=== PATIENT | female | born 1965 | race African-American/Black ===

== ENCOUNTER 2021-10-15 11:33 | Outpatient (REF) | payer MEDICARE, MEDICAID, SELFPAY ==
[2021-10-15 13:45] LABS: MANUAL DIFF FLAG NO
[2021-10-15 13:51] LABS: Basophils Absolute Auto 0.1 X10*3/uL (0.0-0.2); Eosinophils Absolute Auto 0.2 X10*3/uL (0.0-0.4); Eosinophils Percent Auto 2.3 % (0-4); Hematocrit 40.7 % (37.0-47.0); Hemoglobin 13.4 g/dl (12.0-16.0); Imm Gran Abs Auto 0.02 X10*3/uL (0.00-0.03); Imm Gran Pct Auto 0.3 % (0.0-0.4); Lymphocytes Absolute Auto 2.6 X10*3/uL (1.2-4.9); Lymphocytes Percent Auto 36.8 % (20-40); Mean Corpuscular HGB Conc 32.9 g/dl (31.0-35.0); Mean Corpuscular Hemoglobin 31.7 pg (27.0-33.0); Mean Corpuscular Volume 96.2 fL (80.0-98.0); Mean Platelet Volume 10.3 fL (9.4-12.3); Monocytes Absolute Auto 0.8 X10*3/uL (0.1-1.2); Monocytes Percent Auto 11.7 % (2-11); Neutrophils Absolute Auto 3.4 x10*3/uL (2.0-8.3); Neutrophils Percent Auto 47.9 % (45-73); Platelet Count 348 X10*3/uL (160-400); Red Blood Count 4.23 X10*6/uL (4.20-5.50)
[2021-10-15 14:30] LABS: Alanine Aminotransferase 15 U/L (0-31); Alkaline Phosphatase 98 U/L (39-117); Anion Gap 13 (12-20); Aspartate Amino Transferase 19 U/L (5-31); Bilirubin Total 0.5 mg/dL (0.0-1.0); Blood Urea Nitrogen 14 mg/dL (9-16); Calcium 9.7 mg/dL (8.4-10.2); Carbon Dioxide 27 mmol/L (22-29); Chloride 101 mmol/L (96-108); Cholesterol 203 mg/dL; Estimated Glomerular Filt Rate > 60; Glucose Random 86 mg/dL (60-115); Potassium 4.7 mmol/L (3.3-5.1); Sodium 136 mmol/L (135-145); Total Protein 7.9 g/dL (6.5-8.0)
[2021-10-15 14:51] LABS: Vitamin D 25-OH Total 23.7 ng/mL (>30)
== END 2021-10-15 11:34 | disposition home or self-care (01) ==
LOC: HO.HMGCLDS 11:33
PROVIDERS: PCP Internal Medicine; Visit Provider Internal Medicine
DX: M85.80 Other specified disorders of bone density and structure, unspecified site (principal); M54.9 Dorsalgia, unspecified; R06.00 Dyspnea, unspecified
CPT/HCPCS: 36415; 80053; 82306; 82465; 85025

== ENCOUNTER 2022-01-12 10:47 | Outpatient (REF) | payer MEDICARE, MEDICAID, SELFPAY ==
--- NOTE | ~2022-01-12 | XR_ITS ---
EXAMINATION: XR CHEST CLINICAL INFORMATION: Shortness of breath. Chest tightness. COMPARISON: None TECHNIQUE: 2 views of the chest were obtained. FINDINGS: Normal heart size. Pulmonary venous congestion without overt edema. Diffuse prominence of the interstitial markings throughout both lungs, along with bronchial thickening. No discrete consolidation. No pleural effusion or pneumothorax. XR/XR chest 2V IMPRESSION: Diffuse mild bronchial thickening and interstitial prominence throughout both lungs is nonspecific and could represent an atypical pneumonitis / bronchitis
[2022-01-12 12:43] LABS: Thyroid Stimulating Hormone 2.19 uIU/mL (0.32-4.0)
[2022-01-12 13:36] LABS: C Reactive Protein 1.06 mg/dL (< or = 0.50)
== END 2022-01-12 10:48 | disposition home or self-care (01) ==
LOC: HO.XRAY 10:47
PROVIDERS: PCP Internal Medicine; Visit Provider Internal Medicine
DX: R07.9 Chest pain, unspecified (principal); R06.02 Shortness of breath
CPT/HCPCS: 36415; 71046; 82550; 84443; 86140

== ENCOUNTER 2022-02-19 10:31 | Outpatient (REF) | payer MEDICARE, MEDICAID, SELFPAY ==
--- NOTE | 2022-02-19 | PFT_ITS ---
Patient was unable to perform pulmonary function test maneuvers despite multiple attempts. Pulmonary function test was aborted. IMPRESSION: Aborted pulmonary function test. MD TREV Bobby/GABRIELE / [id number]
== END 2022-02-19 10:32 | disposition home or self-care (01) ==
LOC: HO.RESP 10:31
PROVIDERS: PCP Internal Medicine; Visit Provider Internal Medicine
DX: Z13.89 Encounter for screening for other disorder (principal)

== ENCOUNTER 2022-05-26 13:44 | Outpatient (REF) | payer MEDICARE, MEDICAID, OTHER, SELFPAY ==
--- NOTE | ~2022-05-26 | MM_ITS ---
EXAMINATION: MM DIAGNOSTIC DIGITAL BREAST TOMOSYNTHESIS, BILATERAL TARGETED RIGHT BREAST ULTRASOUND CLINICAL INFORMATION: Right breast pain and axillary lump. COMPARISON: Mammography: None. TECHNIQUE: Digital breast tomosynthesis is performed in both the craniocaudal and mediolateral oblique views along with computer-aided detection (CAD). Synthesized 2D images are generated from the tomosynthesis. Targeted right breast ultrasound. FINDINGS: The breasts are heterogeneously dense, which may obscure small masses (ACR BI-RADS breast composition Category c). There are no significant masses, abnormal calcifications, or other abnormalities. Within the right axilla there is a low density well circumscribed lesion with appearance of fat necrosis measuring 1.1 x 0.8 cm in size. There is also question of a small rounded density in the retroareolar region of the right breast. In the region of the patient's pain no abnormal finding was seen. In the retroareolar region of the right breast prominent ducts are present without abnormal cystic or solid mass. In the region of palpable abnormality, in the right axilla, there is a dermal/hypodermal well circumscribed lesion which is homogeneously hyperechoic measuring approximately 9 x 8 x 7 mm in size, which corresponds in size and location to the mammographic finding of fat necrosis. Results are discussed with the patient at time of visit. MM/MM tomosynthesis diagnostic BI IMPRESSION: Palpable abnormality corresponds to fat necrosis. ASSESSMENT: BI-RADS 2: Benign RECOMMENDATION: Routine annual mammography screening. This patient's information was entered into a reminder system with a target due date for their next mammogram.
== END 2022-05-26 13:45 | disposition home or self-care (01) ==
LOC: HO.MAMMO 13:44
PROVIDERS: PCP Internal Medicine; Visit Provider Internal Medicine
DX: N63.13 Unspecified lump in the right breast, lower outer quadrant (principal)
CPT/HCPCS: 76642; 77062; 77066

== ENCOUNTER 2024-04-24 23:14 | Emergency (ER) | payer OTHER, SELFPAY ==
[2024-04-24 23:21] VITALS: BP 125/83; PULSE 102; RESP 18; TEMP 36.4; O2SAT 99; BMI 27.7
[2024-04-25 00:03] LABS: MANUAL DIFF FLAG NO
[2024-04-25 00:06] VITALS: BP 117/76; PULSE 94; RESP 16; TEMP 36.6; O2SAT 98
--- NOTE | 2024-04-25 00:07 | MHC.EDTECH ---
This pct just assumed care of Patient ,vitals taken ,Patient resting waiting see Provider ,Patient aware we need a urine sample.
[2024-04-25 00:20] LABS: Alanine Aminotransferase 23 U/L (0-31); Albumin Level 3.4 g/dL (3.5-5.0); Alkaline Phosphatase 75 U/L (39-117); Anion Gap 16 (12-20); Aspartate Amino Transferase 18 U/L (5-31); Bilirubin Direct 0.2 mg/dL (0.0-0.5); Bilirubin Total 0.4 mg/dL (0.0-1.0); Blood Urea Nitrogen 11 mg/dL (9-16); Calcium 9.7 mg/dL (8.4-10.2); Carbon Dioxide 26 mmol/L (22-29); Chloride 103 mmol/L (96-108); Creatinine Clr Calc Pharmacy 71.1; Estimated Glomerular Filt Rate > 60; Glucose Random 141 mg/dL (60-115); Lipase 48 U/L (8-78); Potassium 4.5 mmol/L (3.3-5.1); Sodium 140 mmol/L (135-145); Total Protein 7.6 g/dL (6.5-8.0)
[2024-04-25 00:41] LABS: Influenza A PCR NEGATIVE (Negative); Influenza B PCR NEGATIVE (Negative); Resp Syncy Virus RNA Qual PCR NEGATIVE (Negative); SARS COV2 PCR INHOUSE NEGATIVE (Negative)
--- NOTE | 2024-04-25 01:02 | ED_ITS ---
HPI - General Adult General Chief complaint: General Medical Stated complaint: body/leg pain Time Seen by Provider: 04/25/24 00:57 Source: patient and family Mode of arrival: ambulatory Limitations: no limitations History of Present Illness ED Provider: Dr. Karyn Kamara HPI narrative: Patient comes to the emergency room complaining of pain all over, ?head to toe?. Patient denies any nausea vomiting or diarrhea. Patient states that for 3 weeks she has been having all of his symptoms. Patient denies chest pain or shortness of breath, no falls, no fever. Patient has been taking Tylenol around the clock. Related Data Previous Rx's ?Medication ?Instructions ?Recorded ibuprofen 600 mg tablet 600 mg PO TID PRN fever or pain 04/25/24 #20 tabs Allergies Allergy/AdvReac Type Severity Reaction Status Date / Time No Known Allergies Allergy Verified 04/24/24 23:26 Review of Systems 2 Review of Systems: Constitutional : No Weight loss, No Fever, No Chills, No Night Sweats, complaining of fatigue and generalized malaise and body aches head to toe ENT/Mouth : No Hearing loss, No Ear Pain, No Nasal Congestion, No Sinus Pain, No Hoarseness, No sore throat, No Rhinorrhea, No Swallowing Difficulty Eyes: No Eye Pain, No Swelling, No Redness, No Foreign Body, No Discharge, No Vision Changes Cardiovascular : No Chest Pain, No SOB, No Dyspnea on Exertion, No Orthopnea, No Edema, No Palpitations Respiratory : No Cough, No Sputum, No Wheezing, No Smoke Exposure, No Dyspnea Gastrointestinal : No Nausea, No Vomiting, No Diarrhea, No Constipation, No abdominal Pain, No Hematochezia, No Melena Genitourinary : no irregular bleeding, No Dysuria, No Urinary Frequency, No Hematuria, No Urinary Incontinence, No Urgency, No Flank Pain, No Urinary Flow Changes, No Hesitancy Musculoskeletal : No joint pain, No Myalgias, No Joint Swelling Skin : No Skin Lesions, No rash Neuro : No Weakness, No Numbness, No Paresthesias, No Loss of Consciousness, No Dizziness, No Headache Psych : Admits to be dealing with anxiety and depression No SI/HI/AH/VH, No Social Issues, Heme/Lymph: No Bruising, No Bleeding,No Lymphadenopathy Endocrine : No Polyuria, No Polydipsia, No Temperature Intolerance PMFSH Social History Social History Smoked in Last 30 Days: No Use of substances other than those prescribed or required for medical reasons: No Advance Directives: No Advance Directives Information Provided: No Patient : No Physical Exam ED Vital Signs: Vital Signs - 24 hr 04/24/24 23:21 04/25/24 00:06 04/25/24 01:21 Temperature 97.5 F 97.8 F 98.3 F Pulse Rate 102 H 94 81 Respiratory Rate 18 16 16 Blood Pressure 125/83 117/76 120/83 Pulse Oximetry 99 98 98 Oxygen Delivery Method Room Air Room Air Room Air BMI result Body Mass Index 27.7 Const Other: Appearance: Alert. Oriented X3. No acute distress. Eyes: Pupils equal, round and reactive to light. ENT: Pharynx normal. Neck: Normal inspection. Neck supple. No lymph nodes noted. No crepitus CVS: Normal heart rate and rhythm. Pulses normal. Normal S1 and S2 Respiratory: No respiratory distress. Breath sounds normal. No Wheezing. No rales Abdomen: Soft and nontender. No rigidity. No distention. Skin: Skin warm and dry. Normal skin color. Normal skin turgor. Extremities: No lower extremity edema. No Lacerations. No Rash Neuro: Oriented X 3. No motor deficit. No sensory deficit. Moving all extremities. No slurred speech. CN 2 through 12 grossly intact Psych: calm, cooperative, flat affect Course Course Course Narrative: All Of patient's labs pending My interpretation of labs: Patient's white blood cell count 11.0, chemistry within normal limits, lipase within normal limits, serology negative -given patient's affect, I believe that some of her physical pain may be secondary to depression. Patient will follow-up with her primary care physician. -a tick panel has been requested, discussed with the patient that the labs will not be available for several days. If positive, our PAs will call her to give her the results and also send in prescriptions. Medical Decision Making Medical Decision Making MDM Narrative: My interpretation of labs: Patient's white blood cell count 11.0, no obvious source of infection. Chemistry within normal limits. Urinalysis negative Discussed with the patient to follow with her primary care physician, it would be of great benefit to be evaluated for depression I discussed with the patient that to her primary care physician she may be referred to rheumatology if the PCP thinks it may be indicated Differential Diagnosis Differential Diagnoses: The differential diagnosis associated with the presentation includes (Tick-borne diseases, depression, electrolyte abnormalities, UTI) Lab Data MDM Lab Attestation statement: I reviewed the patient's lab results. 04/24/24 23:56 04/24/24 23:56 Labs: Lab Results 04/24/24 04/25/24 Range/Units 23:56 02:46 WBC 11.0 H (4.8-10.8) X10*3/uL RBC 4.07 L (4.20-5.50) X10*6/uL Hgb 13.1 (12.0-16.0) g/dl Hct 38.8 (37.0-47.0) % MCV 95.3 (80.0-98.0) fL MCH 32.2 (27.0-33.0) pg MCHC 33.8 (31.0-35.0) g/dl RDW 12.8 (11.0-16.0) % Plt Count 457 H D (160-400) X10*3/uL MPV 8.7 L (9.4-12.3) fL Immature Gran % (Auto) 0.5 H (0.0-0.4) % Neut % (Auto) 64.4 (45-73) % Lymph % (Auto) 27.0 (20-40) % [place] % (Auto) 6.9 (2-11) % Eos % (Auto) 0.8 (0-4) % Baso % (Auto) 0.4 (0-2) % Lymph # (Auto) 3.0 (1.2-4.9) X10*3/uL [place] # (Auto) 0.8 (0.1-1.2) X10*3/uL Eos # (Auto) 0.1 (0.0-0.4) X10*3/uL Baso # (Auto) 0.0 (0.0-0.2) X10*3/uL Abs Immat Gran (auto) 0.05 H (0.00-0.03) X10*3/uL Absolute Neuts (auto) 7.1 (2.0-8.3) x10*3/uL Absolute Nucleated RBC 0.000 (0.0-0.012) X10*3/uL Nucleated RBC % (auto) 0.0 (0.0-0.2) /100WBC Sodium 140 (135-145) mmol/L Potassium 4.5 (3.3-5.1) mmol/L Chloride 103 (96-108) mmol/L Carbon Dioxide 26 (22-29) mmol/L Anion Gap 16 (12-20) BUN 11 (9-16) mg/dL Creatinine 0.73 (0.5-1.4) mg/dL Estim Creat Clear Calc 71.1 Estimated GFR > 60 Random Glucose 141 H (60-115) mg/dL Calcium 9.7 (8.4-10.2) mg/dL Total Bilirubin 0.4 (0.0-1.0) mg/dL Direct Bilirubin 0.2 (0.0-0.5) mg/dL AST 18 (5-31) U/L ALT 23 (0-31) U/L Alkaline Phosphatase 75 (39-117) U/L Total Protein 7.6 (6.5-8.0) g/dL Albumin 3.4 L (3.5-5.0) g/dL Lipase 48 (8-78) U/L Urine Color Yellow Urine Appearance Clear Urine pH 5.5 (5.0-9.0) Ur Specific [place] 1.015 (1.005-1.025) Urine Protein Negative (Neg-Trace) mg/dL Urine Glucose (UA) Negative (Negative) mg/dL Urine Ketones Negative (Negative) mg/dL Urine Blood Negative (Negative) Urine Nitrite Negative (Negative) Ur Leukocyte Esterase Negative (Negative) Influenza Type A (PCR) NEGATIVE (Negative) Influenza Type B (PCR) NEGATIVE (Negative) RSV RNA Qual (PCR) NEGATIVE (Negative) SARS-CoV-2 RNA (RT-PCR) NEGATIVE (Negative) Discharge Plan Discharge Clinical Impression: Weakness, Arthralgia Patient Disposition: Home, Self-Care Instructions: Weakness (ED), Arthralgia (ED) Additional Instructions: Please follow-up with your primary care physician tomorrow. If you have any worsening or new symptoms, please return to the emergency room or call 911 Prescriptions: New ibuprofen 600 mg tablet 600 mg PO TID PRN (Reason: fever or pain) Qty: 20 0RF Print Language: Malian
[2024-04-25 01:10] LABS: Basophils Percent Auto 0.4 % (0-2); Eosinophils Absolute Auto 0.1 X10*3/uL (0.0-0.4); Eosinophils Percent Auto 0.8 % (0-4); Hematocrit 38.8 % (37.0-47.0); Hemoglobin 13.1 g/dl (12.0-16.0); Imm Gran Abs Auto 0.05 X10*3/uL (0.00-0.03); Imm Gran Pct Auto 0.5 % (0.0-0.4); Mean Corpuscular HGB Conc 33.8 g/dl (31.0-35.0); Mean Corpuscular Hemoglobin 32.2 pg (27.0-33.0); Mean Corpuscular Volume 95.3 fL (80.0-98.0); Mean Platelet Volume 8.7 fL (9.4-12.3); Monocytes Absolute Auto 0.8 X10*3/uL (0.1-1.2); Monocytes Percent Auto 6.9 % (2-11); Neutrophils Absolute Auto 7.1 x10*3/uL (2.0-8.3); Neutrophils Percent Auto 64.4 % (45-73); Platelet Count 457 X10*3/uL (160-400); Red Blood Count 4.07 X10*6/uL (4.20-5.50); Red Cell Distribution Width 12.8 % (11.0-16.0)
[2024-04-25 01:21] VITALS: BP 120/83; PULSE 81; RESP 16; TEMP 36.8; O2SAT 98
--- NOTE | 2024-04-25 01:25 | MHC.EDTECH ---
Patient repeated labs drawn and sent to lab ,vitals taken ,Patient resting quietly ,Patient daughter at bedside .
--- NOTE | 2024-04-25 02:47 | MHC.EDTECH ---
Patient urine sample collected and sent to lab .
[2024-04-25 02:52] LABS: Appearance Urine Clear; Color Urine Yellow; Glucose Urine UA Negative (Negative); Leukocyte Esterase Urine Negative (Negative); Nitrite Urine Negative (Negative); PH 5.5 (5.0-9.0); Specific Gravity - Urine 1.015 (1.005-1.025); Urine Blood Negative (Negative); Urine Ketones Negative (Negative); Urine Protein Negative (Neg-Trace)
[2024-04-25 03:14] VITALS: BP 120/83; PULSE 81; RESP 16; TEMP 36.8; O2SAT 98
[2024-04-26 21:33] LABS: Lyme Abs Screen <0.90 index
[2024-04-28 16:48] LABS: A. Phagocytphilium DNA,RT-PCR NOT DETECTED (NOT DETECTED); Babesia Microti DNA, RT-PCR NOT DETECTED (NOT DETECTED); Borrelia Miyamotoi,DNA RT-PCR NOT DETECTED (NOT DETECTED); E.Chaffeensis DNA RT-PCR NOT DETECTED (NOT DETECTED); Lyme(Borrelia ssp)DNA RT-PCR NOT DETECTED (NOT DETECTED)
== END 2024-04-25 03:16 | disposition home or self-care (01) ==
PROVIDERS: Emergency Provider Emergency Medicine; PCP Family Medicine
DX: R53.1 Weakness (principal); M25.50 Pain in unspecified joint; R53.81 Other malaise; R53.83 Other fatigue; Z03.818 Encounter for observation for suspected exposure to other biological agents ruled out
CPT/HCPCS: 0241U; 36415; 80048; 80076; 81003; 83690; 85025; 86617; 86618; 87468; 87469; 87478; 87484; 87798; 99283; 99284

== ENCOUNTER 2024-07-31 10:42 | Inpatient (IN) | payer OTHER, SELFPAY ==
--- NOTE | ~2024-07-31 | CT_ITS ---
CLINICAL HISTORY: difficulty ambulating CT head without contrast Comparison: None Findings: No intra-axial mass, midline shift, hydrocephalus, or acute hemorrhage. No significant atrophy-like change or white matter disease. Mild bilateral ethmoid and maxillary sinus mucosal thickening. The orbits are within normal limits. There is no acute fracture. IMPRESSION: 1. No acute intracranial findings This document has been electronically signed by: Cristiana Kyle MD on 07/31/2024 18:48:31
--- NOTE | ~2024-07-31 | XR_ITS ---
EXAMINATION: Bilateral hip and AP pelvis, bilateral tibia and fibula. CLINICAL INFORMATION: leg pain COMPARISON: None available. TECHNIQUE: 2 views of each tibia and fibula were obtained. AP pelvis and bilateral hips 5 views. FINDINGS: AP pelvis: There is normal symmetry of bilateral hip joints and SI joints. No visible fracture, dislocation or bony erosive changes. The soft tissues are normal Right hip: There is right lateral acetabular enthesophyte. The joint spaces maintained. No visible fracture, bony erosive changes or loose bodies seen. The soft tissues are normal. Left hip: The left hip joint space is normal. No visible fracture, dislocation, loose bodies or bony erosive changes. The soft tissues are normal. Right tibia and fibula: The entire right tibia and fibula is intact. No bony erosive changes. The soft tissues are normal. The ankle mortise and subtalar joints are normal. Left tibia and fibula: The entire left tibia and fibula is intact. There is no visible fracture or cortical abnormality. The ankle mortise and subtalar joints are normal. The soft tissues are normal.. XR/XR hip BI 1V w/wo pel IMPRESSION: Unremarkable bilateral tibia and fibula: Moderate right lateral acetabular enthesophyte. No acute fracture or dislocation in either hip joints. The pelvic bone appears unremarkable. SI joints are normal. Electronically signed by: Jeremy Reynolds MD 07/31/2024 04:48 PM EST
--- NOTE | ~2024-07-31 | US_ITS ---
EXAMINATION: US TRIPLEX LOWER EXTREMITY, BILATERAL CLINICAL INFORMATION: Lower extremity pain and swelling. COMPARISON: None available. TECHNIQUE: Color-flow triplex imaging with spectral analysis and compression Doppler were performed on the bilateral lower extremities. FINDINGS: Respiratory variation, normal compression and augmented flow are noted throughout the bilateral lower extremities. The visualized common femoral vein, superficial femoral vein, profunda femoral vein, popliteal vein and midcalf peroneal and posterior tibial venous segments show no evidence of deep venous thrombosis bilaterally. There is no Thomas's cyst. US/US venous duplex LE BI IMPRESSION: No acute deep venous thrombosis involving the interrogated veins lower extremities. Electronically signed by: Shawn Noyola MD 08/01/2024 08:19 AM EST
--- NOTE | ~2024-07-31 | XR_ITS ---
EXAMINATION: Bilateral hip and AP pelvis, bilateral tibia and fibula. CLINICAL INFORMATION: leg pain COMPARISON: None available. TECHNIQUE: 2 views of each tibia and fibula were obtained. AP pelvis and bilateral hips 5 views. FINDINGS: AP pelvis: There is normal symmetry of bilateral hip joints and SI joints. No visible fracture, dislocation or bony erosive changes. The soft tissues are normal Right hip: There is right lateral acetabular enthesophyte. The joint spaces maintained. No visible fracture, bony erosive changes or loose bodies seen. The soft tissues are normal. Left hip: The left hip joint space is normal. No visible fracture, dislocation, loose bodies or bony erosive changes. The soft tissues are normal. Right tibia and fibula: The entire right tibia and fibula is intact. No bony erosive changes. The soft tissues are normal. The ankle mortise and subtalar joints are normal. Left tibia and fibula: The entire left tibia and fibula is intact. There is no visible fracture or cortical abnormality. The ankle mortise and subtalar joints are normal. The soft tissues are normal.. XR/XR tibia fibula LT 2V IMPRESSION: Unremarkable bilateral tibia and fibula: Moderate right lateral acetabular enthesophyte. No acute fracture or dislocation in either hip joints. The pelvic bone appears unremarkable. SI joints are normal. Electronically signed by: Jeremy Reynolds MD 07/31/2024 04:48 PM [facility]
--- NOTE | ~2024-07-31 | XR_ITS ---
EXAMINATION: Bilateral hip and AP pelvis, bilateral tibia and fibula. CLINICAL INFORMATION: leg pain COMPARISON: None available. TECHNIQUE: 2 views of each tibia and fibula were obtained. AP pelvis and bilateral hips 5 views. FINDINGS: AP pelvis: There is normal symmetry of bilateral hip joints and SI joints. No visible fracture, dislocation or bony erosive changes. The soft tissues are normal Right hip: There is right lateral acetabular enthesophyte. The joint spaces maintained. No visible fracture, bony erosive changes or loose bodies seen. The soft tissues are normal. Left hip: The left hip joint space is normal. No visible fracture, dislocation, loose bodies or bony erosive changes. The soft tissues are normal. Right tibia and fibula: The entire right tibia and fibula is intact. No bony erosive changes. The soft tissues are normal. The ankle mortise and subtalar joints are normal. Left tibia and fibula: The entire left tibia and fibula is intact. There is no visible fracture or cortical abnormality. The ankle mortise and subtalar joints are normal. The soft tissues are normal.. XR/XR tibia fibula RT 2V IMPRESSION: Unremarkable bilateral tibia and fibula: Moderate right lateral acetabular enthesophyte. No acute fracture or dislocation in either hip joints. The pelvic bone appears unremarkable. SI joints are normal. Electronically signed by: Jeremy Reynolds MD 07/31/2024 04:48 PM [facility]
[2024-07-31 10:49] VITALS: BP 108/56; PULSE 71; O2SAT 94
[2024-07-31 11:01] VITALS: BP 115/70; PULSE 112; RESP 18; TEMP 36.2; O2SAT 99; BMI 26.2
--- NOTE | 2024-07-31 11:08 | ED_ITS ---
HPI - General Adult General Chief complaint: General Medical Stated complaint: leg pain Time Seen by Provider: 07/31/24 16:50 Source: patient Mode of arrival: ambulatory Limitations: other (Poor historian) History of Present Illness ED Provider: CHANDNI Ponce HPI narrative: This is a 58-year-old female poor historian unclear medical history presents with weakness throughout entire body she thinks it may be worse in her lower extremities but in her lower extremity she is also experiencing knee pain, hip pain, leg pain. She reports over the past week she has been very weak to the point where she has not been able to get out of bed she feels like her legs are going to give out on her. She will intermittently feel cramping in her lower extremities. He tells me she has been essentially bed-bound for the past week or so in her symptoms seem to be worsening over the past few days. When I asked her what hurts she tells me her whole body hurts and this is normal for her however what is different is the weakness. Patient denies chest pain, shortness of breath, fevers, chills, headache, neck pain, nausea, vomiting, abdominal pain, vision changes, dizziness and weakness. No recent travel. No recent sick contacts. No insect or bug bites. Related Data Home Medications ?Medication ?Instructions ?Recorded ?Confirmed aspirin 81 mg tablet,delayed 81 mg PO DAILY 07/31/24 07/31/24 release atorvastatin 40 mg tablet 40 mg PO DAILY 07/31/24 07/31/24 baclofen 10 mg tablet 10 mg PO BID 07/31/24 07/31/24 buspirone 7.5 mg tablet 7.5 mg PO BID 07/31/24 07/31/24 isosorbide mononitrate 30 mg 30 mg PO DAILY 07/31/24 07/31/24 tablet,extended release 24 hr prazosin 1 mg capsule 1 mg PO BEDTIME 07/31/24 07/31/24 trazodone 100 mg tablet 100 mg PO BEDTIME 07/31/24 07/31/24 Allergies Allergy/AdvReac Type Severity Reaction Status Date / Time No Known Allergies Allergy Verified 07/31/24 11:03 Review of Systems 2 Review of Systems: Yes all other systems are reviewed and are negative PMFSH Past Medical History Attestation statement: The following information was validated with the patient. Source: old records reviewed and nursing notes reviewed Medical History (Updated 07/31/24 @ 21:00 by Alysha Collins PA-C) CAD (coronary artery disease) Idiopathic pulmonary fibrosis Polymyalgia rheumatica Social History Social History Unable to assess alcohol history related to: Unknown Patient Tobacco Use Status: Never used Tobacco Use of substances other than those prescribed or required for medical reasons: Unknown Advance Directives: No Advance Directives Information Provided: Yes Patient : No Physical Exam ED Vital Signs: Vital Signs - 24 hr 07/31/24 11:01 07/31/24 19:40 Temperature 97.2 F 98.3 F Pulse Rate 112 H 98 Respiratory Rate 18 16 Blood Pressure 115/70 125/68 Pulse Oximetry 99 98 Oxygen Delivery Method Room Air Room Air BMI result Body Mass Index 26.2 vss Appearance: Alert.? Oriented X3.? No acute distress.? Head: Normocephalic, atraumatic, no step-offs or deformities Eyes: Pupils equal, round and reactive to light.? ENT: Pharynx normal.? Neck: Normal inspection.? Neck supple.? CVS: Normal heart rate and rhythm.? Pulses normal.? Respiratory: No respiratory distress.? Breath sounds normal.? Abdomen: Soft and nontender.? Skin: Skin warm and dry.? Normal skin color.? Normal skin turgor.? Extremities: No lower extremity edema.? No calf ttp. Global weakness. Seems to be worse to lower extremities. Reflexes present 1+ b/l LE Back: No midline tenderness, no C-spine tenderness, full range of motion, Neuro: Oriented X 3.? No motor deficit.? No sensory deficit. CN 2-12 intact Course Course Course Narrative: RME: 58 yold female presents to the ED for bilateral hip/leg pain since march that has worsened and cause mobility issues. patient at times legs become swollen, but has improved. labs, US, xrays ordered Reevaluation(s) Reevaluation #1: CBC with no acute findings needing intervention. Normocytic anemia noted. Chemistry no acute electrolyte abnormalities. X-ray of hip and pelvis moderate right lateral acetabular enthesophytes. No acute fractures or dislocation either hip joints. The pelvic bone appears unremarkable. SI joints normal. Unremarkable bilateral tibia and fibula. Venous duplex pending & UA pending Time: 17:03 Reevaluation #2: Prelim DVT study negative. CT scan head, ESR, viral test, final DVT study read pending. Sign out to Dr. Albarran Time: 18:50 Reevaluation #3: I assumed care of this patient from my colleague, physician assistant professor of education Lauryn Ponce. The patient's CT scan urinalysis since ESR and SARs panel was pending. The patient is a open speech 58-year-old female with a history of diabetes mellitus, hyperlipidemia, polymyalgia rheumatica, positive MADY and RF, depression, who presents emergency department for evaluation of severe pain in her upper and lower extremities with weakness x1 week and inability to walk over last 2-3 days. Patient states she was had weakness and pain in her upper and lower extremities since March of 2024. She has been evaluated by her PCP at [place] Dr Snethil moses rheumaticmoraima. Patient was started on prednisone with some improvement of her pain however this had to be discontinued secondary to high sugars. Patient did see her PCP 4 days prior and was prescribed baclofen with no relief of her symptoms. On my examination the patient has increased tenderness palpation of her shoulders, hips, elbows and knees with less tenderness palpation over her wrists and fingers here there is no increased warmth over her joints. No joint effusions noted. Patient has weakness in her upper and lower extremities secondary to her pain. The patient has 2+ symmetric reflexes bilaterally. My interpretation of the patient's laboratory evaluation as follows: WBC was normal 9200 with left shift of sudden I neutrophils and 12 lymphocytes. ESR was elevated at 92. Glucose was elevated 167. C-reactive protein is elevated 28.5. CT scan of the head was negative. X-ray of the hip and pelvis were unremarkable. Duplex ultrasound of lower extremities negative for DVT. At this time I do not think that the patient was Guillain-Waterloo syndrome and that her symptoms are more consistent with a severe flare-up of polymyalgia rheumatica the point where she was unable to walk secondary to the severity of her inflammation and pain. Patient was treated with Solu-Medrol 60 mg IV and morphine 4 mg IV. I did discuss the patient's presentation over tiger text with the covering hospitalist, Dr. Marie the patient will be admitted for further treatment Past medical history obtained from the patient's recent PCP visit as he was follows: Polymyalgia rheumatica, myalgia, prediabetes, positive MADY, subclinical hyperthyroidism, elevated rheumatoid factor, left hip pain, elevated ESR, elevated CRP Time: 19:19 Medications Administered Generic Name Dose Route Start Last Admin Trade Name Freq PRN Reason Stop Dose Admin Insulin Human Lispro 0 unit 07/31/24 20:55 07/31/24 21:58 Insulin Lispro 100 Unit/Ml 3 Ml Vial SUBCUT 4 unit QIDACHS YONATAN Administration Protocol Morphine Sulfate 2 mg 07/31/24 20:28 08/01/24 06:25 Morphine Sulfate 2 Mg/Ml Cartridge IVPUSH 2 mg Q3H PRN Administration Pain, Severe (Pain Scale 7-10) Protocol Sodium Chloride 3 ml 08/01/24 00:00 08/01/24 00:25 0.9 % Sodium Chloride Flush 3 Ml Syringe IVFLUSH 3 ml QSHIFT YONATAN Administration Discontinued Medications Generic Name Dose Route Start Last Admin Trade Name Freq PRN Reason Stop Dose Admin Methylprednisolone Sodium Succinate 60 mg 07/31/24 19:42 07/31/24 20:12 Methylprednisolone Sod Succ 125 Mg/2 Ml Vial IVPUSH 07/31/24 19:43 60 mg ONCE ONE Administration Morphine Sulfate 4 mg 07/31/24 19:42 07/31/24 20:12 Morphine Sulfate 4 Mg/Ml Cartridge IVPUSH 07/31/24 19:43 4 mg ONCE STA Administration Protocol Medical Decision Making Medical Decision Making [facility] Narrative: 58-year-old female presents with worsening weakness in lower extremity pain. Weakness >pain. Ongoing for a few months acutely worsening over the past week. She has been bed-bound for the past week. Physical exam global weakness worse to lower extremities. 1+ lower extremity reflexes present. No focal neuro deficits on exam History and physical exam concerning for possible viral illness versus UTI versus depression versus rheumatologic disorder. However Guillain-Waterloo also in the differential. Will rule out metabolic derangements. Intracranial hemorrhage is unlikely however will rule out. Plan labs, imaging, urine. I did add ESR and CRP on this patient Differential Diagnosis Differential Diagnoses: The differential diagnosis associated with the presentation includes (History and physical exam concerning for possible viral illness versus UTI versus depression versus rheumatologic disorder. However Guillain-Waterloo also in the differential. Will rule out metabolic derangements. Intracranial hemorrhage is unlikely however will rule out.) Admission/Observation Consideration of admission/observation: Escalation of care including admission/observation considered (likely ) Consult Healthcare Provider Management of the patient was discussed with: [facility] Admin (Dr. Albarran ) Lab Data MDM Lab Attestation statement: I reviewed the patient's lab results. 08/01/24 04:16 08/01/24 04:16 Labs: Lab Results 07/31/24 07/31/24 Range/Units 11:39 19:12 WBC 9.2 (4.8-10.8) X10*3/uL RBC 3.86 L (4.20-5.50) X10*6/uL Hgb 11.4 L (12.0-16.0) g/dl Hct 35.6 L (37.0-47.0) % MCV 92.2 (80.0-98.0) fL MCH 29.5 (27.0-33.0) pg MCHC 32.0 (31.0-35.0) g/dl RDW 17.0 H (11.0-16.0) % Plt Count 353 (160-400) X10*3/uL MPV 9.1 L (9.4-12.3) fL Immature Gran % (Auto) 0.8 H (0.0-0.4) % Neut % (Auto) 79.7 H (45-73) % Lymph % (Auto) 12.7 L (20-40) % [place] % (Auto) 5.8 (2-11) % Eos % (Auto) 0.6 (0-4) % Baso % (Auto) 0.4 (0-2) % Lymph # (Auto) 1.2 (1.2-4.9) X10*3/uL [place] # (Auto) 0.5 (0.1-1.2) X10*3/uL Eos # (Auto) 0.1 (0.0-0.4) X10*3/uL Baso # (Auto) 0.0 (0.0-0.2) X10*3/uL Abs Immat Gran (auto) 0.07 H (0.00-0.03) X10*3/uL Absolute Neuts (auto) 7.4 (2.0-8.3) x10*3/uL Absolute Nucleated RBC 0.000 (0.0-0.012) X10*3/uL Nucleated RBC % (auto) 0.0 (0.0-0.2) /100WBC ESR 92 H (0-20) MM/HR Sodium 137 (135-145) mmol/L Potassium 4.1 (3.3-5.1) mmol/L Chloride 106 (96-108) mmol/L Carbon Dioxide 25 (22-29) mmol/L Anion Gap 10 L (12-20) BUN 11 (9-16) mg/dL Creatinine 0.63 (0.5-1.4) mg/dL Estim Creat Clear Calc 80.2 Estimated GFR > 60 Random Glucose 160 H (60-115) mg/dL Calcium 8.8 D (8.4-10.2) mg/dL Total Bilirubin 0.3 (0.0-1.0) mg/dL AST 21 (5-31) U/L ALT 13 (0-31) U/L Alkaline Phosphatase 101 (39-117) U/L Total Creatine Kinase 167 H (26-140) U/L C-Reactive Protein 28.51 H (< or = 0.50) mg/dL B-Natriuretic Peptide < 10 (<100) pg/mL Total Protein 6.2 L (6.5-8.0) g/dL Albumin 2.7 L (3.5-5.0) g/dL Influenza Type A (PCR) NEGATIVE (Negative) Influenza Type B (PCR) NEGATIVE (Negative) RSV RNA Qual (PCR) NEGATIVE (Negative) SARS-CoV-2 RNA (RT-PCR) NEGATIVE (Negative) Independent Interpretation I performed an independent interpretation of an: CT Scan (pending ) Radiology Impression Discussion of test interpretation with radiology: I have reviewed the radiologist's reading. Independent Historian Clinical information obtained from an independent historian. History obtained from or confirmed by: EMS Tests considered The following testing was considered but not selected: LP should be considered Critical Care Time Critical Care Time Critical Care Time: Yes Total Critical Care Time: 35 Attestation: I attest to this time spent taking care of the patient, obtaining history, physical, reviewing labs, imaging, treatment of patients condition +/- specialist/hospitalist consult Discharge Plan Discharge Clinical Impression: Myalgia, Leg weakness, bilateral, Fatigue, Polymyalgia rheumatica, Unable to walk Patient Disposition: Admitted As Inpatient
[2024-07-31 11:59] LABS: MANUAL DIFF FLAG NO
[2024-07-31 12:00] LABS: Basophils Percent Auto 0.4 % (0-2); Eosinophils Absolute Auto 0.1 X10*3/uL (0.0-0.4); Eosinophils Percent Auto 0.6 % (0-4); Hematocrit 35.6 % (37.0-47.0); Hemoglobin 11.4 g/dl (12.0-16.0); Imm Gran Abs Auto 0.07 X10*3/uL (0.00-0.03); Imm Gran Pct Auto 0.8 % (0.0-0.4); Lymphocytes Absolute Auto 1.2 X10*3/uL (1.2-4.9); Lymphocytes Percent Auto 12.7 % (20-40); Mean Corpuscular Hemoglobin 29.5 pg (27.0-33.0); Mean Corpuscular Volume 92.2 fL (80.0-98.0); Mean Platelet Volume 9.1 fL (9.4-12.3); Monocytes Absolute Auto 0.5 X10*3/uL (0.1-1.2); Monocytes Percent Auto 5.8 % (2-11); Neutrophils Absolute Auto 7.4 x10*3/uL (2.0-8.3); Neutrophils Percent Auto 79.7 % (45-73); Platelet Count 353 X10*3/uL (160-400); Red Blood Count 3.86 X10*6/uL (4.20-5.50); White Blood Count 9.2 X10*3/uL (4.8-10.8)
[2024-07-31 12:20] LABS: B Type Natriuretic Peptide < 10 pg/mL (<100)
[2024-07-31 12:22] LABS: Alanine Aminotransferase 13 U/L (0-31); Albumin Level 2.7 g/dL (3.5-5.0); Alkaline Phosphatase 101 U/L (39-117); Anion Gap 10 (12-20); Aspartate Amino Transferase 21 U/L (5-31); Bilirubin Total 0.3 mg/dL (0.0-1.0); Blood Urea Nitrogen 11 mg/dL (9-16); Calcium 8.8 mg/dL (8.4-10.2); Carbon Dioxide 25 mmol/L (22-29); Chloride 106 mmol/L (96-108); Creatinine Clr Calc Pharmacy 80.2; Estimated Glomerular Filt Rate > 60; Glucose Random 160 mg/dL (60-115); Potassium 4.1 mmol/L (3.3-5.1); Sodium 137 mmol/L (135-145); Total Protein 6.2 g/dL (6.5-8.0)
[2024-07-31 17:19] LABS: C Reactive Protein 28.51 mg/dL (< or = 0.50)
[2024-07-31 19:01] LABS: Erythrocyte Sedimentation Rate 92 MM/HR (0-20)
--- OUTSIDE RECORDS SUMMARY | 2024-07-31 19:26 | XMS_ITS | Data Portability ---
Author Organization [facility], [place] [facility] Address [address] [place] [id number] Care Team Providers Care Recreation Coordinator Name Role Phone HIM CCA OTHER Assessment Encounter Date Assessment Date Assessment LastModified by Organization Details LastModified Time 12/13/2023 12/13/2023 I provided real -time medical direction via phone for this encounter and was available for additional phone-based assistance as needed. I have reviewed and agree with the Assessment and Plan as documented by the Design Tech. Patient given the opportunity to ask questions. Our service contacted for an assessment of: Chronic pain As per above, patient with hx of chronic pain. No new or worsening red S&S. No new bowel/bladder symptoms. No new gait abnl. No new neurological signs, symptoms or deficits. Per catshovel driver on the scene, VSS, non-toxic. Neuro grossly intact. No CKI and not on blood thinners. Has not taken NSAID today and does not frequently use NSAIDs. Impression: Chronic pain Plan: Toradol 30 mg IM times one. F/u with PCP. Red flags to be discussed as to when to seek a higher level of care. Also noted to have had a recent chest tube - see uploaded pictures. No concern re: site. We discussed the diagnostic uncertainty of home visits and the risk associated with this. In this case, the patient and I felt this to be an acceptable and reasonable amount of risk given the benefit of avoiding an ED visit. We discussed the need to seek care urgently/emerge ntly in the setting of any new or worsening serious symptoms [email or web address] Not available 12/13/2023 13:47:45 12/14/2023 12/14/2023 As noted, we were called to see this patient regarding concerns of spasm and rash. Evaluation in the field was performed by my catshovel driver colleague, as noted above, I provided real-time direction and supervision for this visit. The evaluation revealed 58y F with recent lung bx 8 days ago with appearance of redness yesterday afternoon across right axilla to back, chest and abdomen that is better today. The area encompasses the port and CT sites, but not focal around any particular one and the sites themselves are clean, dry, intact, without drainage. There is no tenderness, focal lesions or warmth to the touch. No fevers. She is otherwise without sxs related to the bx such as cough, dyspnea, or pleuritic pain. She sees surgery and PCP next week. We will judith the area, provide precautions and ask CRC to outreach tomorrow to assess trajectory. Impression: rash Plan: mointor closely, precautions, outreach tomorrow from [facility], consider moving f/u appt sooner as able Disposition: We discussed the diagnostic uncertainty of home visits and the risk associated with this. In this case, the patient and I felt this to be an acceptable and reasonable amount of risk given the benefit of avoiding an ED visit. We discussed the need to seek care urgently/emerge ntly in the setting of any new or worsening serious symptoms, particularly fever, chills, shob, confusion, worsening pain, drainage, malaise, n/v [email or web address] Not available 12/14/2023 19:39:50 Plan of Treatment Reminders Order Date Submit Date Provider Last Modified By Organization Details Last Modified Time Details Appointments None recorded. Lab None recorded. Referral None recorded. Procedures None recorded. Surgeries None recorded. Imaging None recorded. Medication Orders ketorolac 30 mg/mL (1 mL) injection solution 2023 024 [email or web address] Not available 13:45:32 Patient TargetsNo targets recorded. Patient InstructionsNo instructions recorded. Reason for Referral None Reported. Medical Equipment None Reported. Medications Name Sig Start Date Stop Date Status Note LastModified by Organization Details LastModified Time amoxicillin 500 mg capsule TAKE 1 CAPSULE BY MOUTH EVERY 6 HOURS UNTIL FINISHED active Not Available Not Available No t Available buspirone 5 mg tablet TAKE 1 TABLET BY MOUTH TWICE A DAY active Not Available Not Available No t Available atorvastatin 20 mg tablet TAKE 1 TABLET BY MOUTH EVERY DAY active Not Available Not Available No t Available ibuprofen 800 mg tablet TAKE 1 TABLET BY MOUTH EVERY 8 HOURS NEEDED FOR PAIN active Not Available Not Available No t Available prazosin 1 mg capsule TAKE 1 CAPSULE BY MOUTH EVERYDAY AT BEDTIME active Not Available Not Available No t Available senna 8.6 mg tablet TAKE 2 TABLETS BY MOUTH EVERY DAY AT BEDTIME *HOLD FOR DIARRHEA* active Not Available Not Available No t Available trazodone 100 mg tablet TAKE 1 TABLET BY MOUTH EVERYDAY AT BEDTIME active Not Available Not Available No t Available docusate sodium 100 mg capsule TAKE 1 CAPSULE BY MOUTH TWICE A DAY active Not Available Not Available No t Available buspirone 7.5 mg tablet TAKE 1 TABLET BY MOUTH TWICE A DAY active Not Available Not Available No t Available ibuprofen 600 mg tablet TAKE 1 TABLET BY MOUTH EVERY 8 HOURS NEEDED FOR PAIN (TAKE WITH FOOD). active Not Available Not Available Not Available albuterol sulfate HFA 90 mcg/actuatio n aerosol inhaler TAKE 2 PUFFS BY MOUTH EVERY 6 HOURS NEEDED COUGH/WHEEZ ING/SHORTNE SS OF BREATH active Not Available Not Available No t Available oxycodone 5 mg tablet TAKE 1-2 TABLETS BY MOUTH EVERY 4 HOURS NEEDED FOR PAIN active Not Available Not Available No t Available cyclobenzapr ine 5 mg tablet TAKE 1 TABLET BY MOUTH AT BEDTIME NEEDED FOR MUSCLE SPASMS. active Not Available Not Available No t Available GaviLyte-G 236 gram-22.74 gram-6.74 gram-5.86 gram oral solution TAKE 8 OUNCE BY MOUTH DIRECTED FOLLOW INSTRUCTION S PROVIDED TO YOU BY DOCTORS OFFICE active Not Available Not Available No t Available Gavilax 17 gram/dose oral powder TAKE 17 GRAM DISSOLVED IN WATER ONCE A DAY active Not Available Not Available N ot Available Vitals Date Recorded Heart rate Oxygen saturation Oxygen saturation in Arterial blood by Pulse oximetry Body temperature Respiratory rate Systolic blood pressure Diastolic blood pressure Provider Name and Address Organization Details Last Updated DateTime 4 65 /min 99 % 99 % 97.4 [degF] 17 /min 120 mm[Hg] 75 mm[Hg] Not Available [facility] 4 13:40:20 Date Recorded Heart rate Body temperature Respiratory rate Oxygen saturation Oxygen saturation in Arterial blood by Pulse oximetry Systolic blood pressure Diastolic blood pressure Provider Name and Address Organization Details Last Updated DateTime 4 82 /min 98.7 [degF] 16 /min 98 % 98 % 120 mm[Hg] 76 mm[Hg] Not Available [facility] 4 19:15:34 Social History None recorded. Functional Status None recorded. Mental Status None recorded. Family History Nothing Reported. Medical History No medical history recorded. Gynecological HistoryNo gynecological history recorded. Obstetrics History GPAL:G 0 P 0 0 0 0 Past Encounters Encounter ID Performer Location Encounter Start Date Encounter Closed Date Diagnosis/Indication Diagnosis SNOMED-CT Code Diagnosis ICD10 Code Diagnosis Note [id number] Mariella Castro MD [facility] [address] [place] [phone] 12/13/2023 13:40:10 12/13/2023 17:51:43 Chronic pain 34243809 G89.29 [id number] Hafsa Angel MD [facility] [address] [place] [phone] 12/14/2023 19:15:30 12/15/2023 11:44:34 Erythematous rash 862747705 R21 Health Concerns Section Related Observation LastModified by Organization Detai ls LastModified Time None Recorded Concern Status LastModified by Organization Details LastModified Time None Recorded Advance Directives Directive None Recorded Payers Encounter Date Sequence Insurance Name Policy Number Policy Haywood Covered Member ID Haywood Member ID Guarantor Name 12/13/2023 1 [facility] - DOS ON OR AFTER 2022 - DUAL ELIGIBLE - LONG-TERM OPTIONS AND ONE CARE (MEDICARE REPLACEMENT/ADV ANTAGE - HMO) Patricia Alexandre [id number] Patricia Alexandre 12/14/2023 1 [facility] - DOS ON OR AFTER 2022 - DUAL ELIGIBLE - LONG-TERM OPTIONS AND ONE CARE (MEDICARE REPLACEMENT/ADV ANTAGE - HMO) Patricia Alexandre [id number] Particia Alexandre Notes Date Note Type Note Provider Name and Address Organization Details Recorded Time 12/13/2023 text/html CRC Nurse Triage Notes (Trini Roberson): Reason For Request: Pt's son reporting recent discharge for biopsy in the right lung>requesting wound care for potential infection that the son has done his best to upkeep>reporting pain between neck and members right arm Chief Complaints: Wound Care, Pain Allergies: No Known Comments: Members son calling in to place a referral, identified via name, and address. Member had a lung bx 12/05 with a chest tube, all sites closed with surgical glue (3 puncture sites and [address] was placed). Per son the 3 puncture sites are scabbed, closed and dry, but where the chest tube was, is reddened, open and has a small amount of yellow drainage, denies warmth or swelling, no foul odor, no fever/chills. Per son member also has chronic muscle spasms and pain, he usually takes her for an injection but members mobility since the bx has not been great, and he has been transferring/[place] mack her around, and she lives on the 3rd floor. He would also like her pain assessed. ................. ................. ................. ................. ................. ................. ................. ................. ..... Design Tech Note From Elena Chahal: 58y F c/o R arm and neck pain and concerned for possible infection of surgical sites on R side s/p lung biopsy on 12/05 for fibrosis. Pt a&ox3, vss, afebrile; denies chest pain, sob, abd pain, or n/v/d. No redness, warmth, or drainage from incision sites. Pt? s son states chronic muscle spasms in R arm and neck which have been worse over the last x1-2 days, rx pain medication post biopsy and rx muscle relaxer not effective. C consulted, 30mg toradol IM administered. Red flags reviewed. ................. ................. ................. ................. ................. ................. ................. ................. ..... Disposition: Cole Mariella Castro MD [address] [facility],[address], [place], [phone], [facility] 12/13/2023 13:48:03 12/14/2023 text/html CRC Nurse Triage Notes (Danelle Cotton): Reason For Request: Follow up from surgery /muscular spasms Chief Complaints: Pain PMH: Other Allergies: Unknown Comments: Combination Machine Tender verified the member's name//address and phone number. Member is a 58 yr old female, togolese speaking PMH Son calling for member, had sx on 12/05. Member had biopsy in right lung. Member has been having spasm in the right arm , son is unable to move due to spasm. Per son the 3 puncture sites are scabbed, closed and dry, but where the chest tube was, is reddened, open and has a small amount of yellow drainage, denies warmth or swelling, no foul odor, no fever/chills. Education provided on the response time and the member was advised to monitor reported s/s and seek emergency [facility]PI: spasms of right arm are chronic. seen yesterday for this problem, given toradol. and then after the medic left, the careiver noticed some spreading redness around the access points from the bx and chest tube. no fevers, feelin at her basline otherwise. at yesterday's appt, some hellow drainage and redness at chest tube site was noted. has f/u w surgeon next week and the following tuesday sees PCP. no sob.............. ................. ................. ................. ................. ................. ................. ................. ........ Design Tech Note From Caden Bennett: Dispatched to the call address for the follow up. [facility] and pain. Pt was given IM Ketorolac and advised of red flags. Son calls today because he is worried Pt has reddening on her chest/abd as well as more pain in her shoulders/arms. Pt advises that not long after her visit yesterday she noticed reddening in her chest and abd as well as her belly getting a little bigger. Pt denies SoB, CP, dizziness or weakness. Pt was found sitting in chair, CAOx4, airway open and patent, breathing non labored, able to speak in full sentences, -JVD, -HEENT, skin PWD with good turgor, mucous membranes pink and moist, abd soft non distended but tender around injections sites from a recent surgery in LLQ/LRQ. Reddening noted from Pts mid sternum down to URQ of abd and spread around to right lateral side/auxiliary area. Surgical sites did not appear infected at this time. [facility] consulted. Pt and family were advised to monitor the redness for increased darkening and spreading. Other Red flags discussed. Pt has follow up appts with surgeon and PCP next week. ALL times are approx. ................. ................. ................. ................. ................. ................. ................. ................. ..... Disposition: Cole Angel MD [address] [facility],[address], [place], [phone], [id number] 12/14/2023 21:13:02 OBGyn Episode No OBEpisode recorded.
[2024-07-31 19:40] VITALS: BP 125/68; PULSE 98; RESP 16; TEMP 36.8; O2SAT 98
[2024-07-31 19:52] LABS: Influenza A PCR NEGATIVE (Negative); Influenza B PCR NEGATIVE (Negative); Resp Syncy Virus RNA Qual PCR NEGATIVE (Negative); SARS COV2 PCR INHOUSE NEGATIVE (Negative)
[2024-07-31] MEDS: Morphine Sulfate 4 MG/ML CARTRIDGE IVPUSH (20:12)
[2024-07-31] MEDS: methylPREDNISolone Sod Succ 125 MG/2 ML VIAL 60 MG IVPUSH (20:12)
--- NOTE | 2024-07-31 20:36 | PHA.MEDREC ---
Addendum entered by Mary Sales, LTAC, located within [facility] 08/01/24 11:57: spoke to patient's niece, Heather who called back and stated the patient is on OFEV which she will be bringing in for pt. Addendum entered by Frank Hernandez, LTAC, located within [facility] 07/31/24 20:47: med rec reviewed Original Note: Pharmacy Consult ? Medication Reconciliation Pharmacy has completed the medication reconciliation. Spoke with mitzy and she was a poor historian when it came to her medications. She claims she was only taking 2 medications but does not know the names of them and also was confused when I had a list of them. She was able to state that she is no longer taking the Prednisone regimen as of last 07/26 due to her sugars being high. She had a Dr's visit packet dated 07/27/24 that had confirmed on it that the patient is now taking Baclofen 10mg tabs twice daily and the patient confirmed she is taking that medication now. She stated her niece Heather ([phone]) should know and be able to confirm what she is taking for medications right now. I tried calling Heather to see if she knew her Aunts medications but she did not answer. I confirmed the med rec according to claims and the fill history on the medications.
--- NOTE | 2024-07-31 20:54 | P.HPHOSP_ITS ---
History of Present Illness Date of Service: 07/31/24 Attending physician on admission: Radha Guerrero Chief Complaint: weakness, joint pain Patient is a 58-year-old female with a history significant for PMR, idiopathic pulmonary fibrosis, CAD and HLD, who reported to the ED due to increasing weakness and inability to walk with associated upper extremity and lower extremity joint pain. She rates the pain at 10/10 very sensitive to touch and extremely painful with movement or pressure. No erythema or warmth of the joints. no LE edema. She reports the pain is specifically in her shoulders, elbows, hips and knees. The pain is consistent throughout, no specific joint with increased pain. She has been treated for PMR outpatient reports that her prednisone was recently stopped and her weakness has been progressively worsening for the past week, unable to walk for the past 2-3 days. She reports she did recently travel to [place] and did recently have a viral illness at least 1 month ago. No recent immunizations. Mild numbness and tingling in the hands in feet. No respiratory symptoms including shortness of breath or dyspnea. Review of Systems 2 Constitutional: Constitutional: Denies chills, Denies fatigue, Denies fever(s) and Denies headache(s) Eyes: Eyes: Denies change in vision ENT: Denies headache(s), Denies nasal congestion, Denies nasal discharge and Denies sore throat Cardiovascular: Cardiovascular: Denies chest pain, Denies rapid heart rate, Denies leg edema, Denies lightheadedness and Denies dyspnea Respiratory: Respiratory: Denies chest congestion, Denies cough, Denies dyspnea and Denies wheezing Gastrointestinal: Gastrointestinal: Denies constipation, Denies diarrhea, Denies nausea and Denies vomiting Genitourinary: Genitourinary: Denies dysuria and Denies urinary urgency Musculoskeletal: Musculoskeletal: Reports myalgias, Reports arthralgias and Reports joint swelling Integumentary/Breasts: Skin/Breast: Denies rash Neurologic: Denies confusion and Denies headache(s) Psychiatric: Psychiatric: Denies confusion Endocrine: Endocrine: Denies fatigue Hematologic/Lymphatic: Hematologic/Lymphatic: Denies easy bleeding and Denies easy bruising Allergic/Immunologic: Allergic/Immunologic: Denies wheezing [facility] Medical History (Updated 07/31/24 @ 21:00 by Alysha Collins PA-C) CAD (coronary artery disease) Idiopathic pulmonary fibrosis Polymyalgia rheumatica Functional capacity: independent ambulation Social History Unable to assess alcohol history related to: Unknown Use of substances other than those prescribed or required for medical reasons: Unknown Advance Directives: No Advance Directives Information Provided: Yes Patient : No Narrative: No smoking, alcohol or drug use Meds Allergies Allergy/AdvReac Type Severity Reaction Status Date / Time No Known Allergies Allergy Verified 07/31/24 11:03 Active Medications: Current Medications Acetaminophen (Acetaminophen 325 Mg Tablet) 975 mg PO Q6H PRN PRN Reason: Pain, Mild 1-3,fever,headache Calcium Carbonate (Calcium Carbonate 750 Mg Tab.Chew) 750 mg PO Q4H PRN PRN Reason: Heartburn Enoxaparin Sodium (Enoxaparin Sodium 40 Mg/0.4 Ml Syringe) 40 mg SUBCUT Q24H YONATAN Magnesium Hydroxide (Milk Of Magnesia 30 Ml Oral.Susp) 30 ml PO DAILY PRN PRN Reason: Constipation Melatonin (Melatonin 3 Mg Tablet) 6 mg PO BEDTIME PRN PRN Reason: Insomnia Methylprednisolone Sodium Succinate (Methylprednisolone Sod Succ 125 Mg/2 Ml Vial) 60 mg IVPUSH DAILY YONATAN Morphine Sulfate (Morphine Sulfate 2 Mg/Ml Cartridge) 2 mg IVPUSH Q3H PRN; Protocol PRN Reason: Pain, Severe (Pain Scale 7-10) Sodium Chloride (0.9 % Sodium Chloride Flush 3 Ml Syringe) 3 ml IVFLUSH QSHIFT YOANTAN Home Medications ?Medication ?Instructions ?Recorded ?Confirmed ?Last Taken ?Type aspirin 81 mg tablet,delayed 81 mg PO DAILY 07/31/24 07/31/24 Unknown History release atorvastatin 40 mg tablet 40 mg PO DAILY 07/31/24 07/31/24 Unknown History baclofen 10 mg tablet 10 mg PO BID 07/31/24 07/31/24 Unknown History buspirone 7.5 mg tablet 7.5 mg PO BID 07/31/24 07/31/24 Unknown History isosorbide mononitrate 30 mg 30 mg PO DAILY 07/31/24 07/31/24 Unknown History tablet,extended release 24 hr prazosin 1 mg capsule 1 mg PO BEDTIME 07/31/24 07/31/24 Unknown History trazodone 100 mg tablet 100 mg PO BEDTIME 07/31/24 07/31/24 Unknown History Physical Exam 2 Vital Signs and Narrative: Vital Signs: Last Vital Signs Temp 98.3 F 07/31/24 19:40 Pulse 98 07/31/24 19:40 Resp 16 07/31/24 19:40 BP 125/68 07/31/24 19:40 Pulse Ox 98 07/31/24 19:40 O2 Del Method Room Air 07/31/24 19:40 BMI result Body Mass Index 26.2 General: AOx3, no acute distress Resp: Fine crackles bilateral lower lungs CVS: S1, S2, RRR GI: +BS, NT, no distention Skin: Warm, dry Neuro: Cranial nerves II-XII grossly intact bilaterally. Motor grossly intact bilaterally Extremities: No pitting edema. Extreme pain with light touch to the lower and upper extremities. Reflexes unable to be evaluated in the lower extremities due to pain. Upper extremity reflexes 1-2+ bilaterally Psych: Appropriate affect Const: General: No confusion Orientation/consciousness: No confusion Neuro: General: No confusion Results Labs 07/31/24 11:39 07/31/24 11:39 Labs: Laboratory Results - last 24 hr 07/31/24 07/31/24 11:39 19:12 MCV 92.2 MCH 29.5 MCHC 32.0 RDW 17.0 H Plt Count 353 MPV 9.1 L Immature Gran % (Auto) 0.8 H Neut % (Auto) 79.7 H Lymph % (Auto) 12.7 L C[place] % (Auto) 5.8 Eos % (Auto) 0.6 Baso % (Auto) 0.4 Lymph # (Auto) 1.2 [place] # (Auto) 0.5 Eos # (Auto) 0.1 Baso # (Auto) 0.0 Abs Immat Gran (auto) 0.07 H Absolute Neuts (auto) 7.4 Absolute Nucleated RBC 0.000 Nucleated RBC % (auto) 0.0 ESR 92 H Anion Gap 10 L Estim Creat Clear Calc 80.2 Estimated GFR > 60 Random Glucose 160 H Calcium 8.8 D Total Bilirubin 0.3 AST 21 ALT 13 Alkaline Phosphatase 101 Total Creatine Kinase 167 H C-Reactive Protein 28.51 H B-Natriuretic Peptide < 10 Total Protein 6.2 L Albumin 2.7 L Influenza Type A (PCR) NEGATIVE Influenza Type B (PCR) NEGATIVE RSV RNA Qual (PCR) NEGATIVE SARS-CoV-2 RNA (RT-PCR) NEGATIVE Imaging Radiologist's Impressions: Impressions Tibia/Fibula X-Ray 07/31/24 11:07 IMPRESSION: Unremarkable bilateral tibia and fibula: Moderate right lateral acetabular enthesophyte. No acute fracture or dislocation in either hip joints. The pelvic bone appears unremarkable. SI joints are normal. Electronically signed by: Jeremy Reynolds MD 07/31/2024 04:48 PM EST RP Tibia/Fibula X-Ray 07/31/24 11:07 IMPRESSION: Unremarkable bilateral tibia and fibula: Moderate right lateral acetabular enthesophyte. No acute fracture or dislocation in either hip joints. The pelvic bone appears unremarkable. SI joints are normal. Electronically signed by: Jeremy Reynolds MD 07/31/2024 04:48 PM EST RP Hip/Pelvis X-Ray 07/31/24 16:10 IMPRESSION: Unremarkable bilateral tibia and fibula: Moderate right lateral acetabular enthesophyte. No acute fracture or dislocation in either hip joints. The pelvic bone appears unremarkable. SI joints are normal. Electronically signed by: Jeremy Reynolds MD 07/31/2024 04:48 PM EST RP Assessment and Plan (1) Polymyalgia rheumatica: Status: Acute (2) Leg weakness, bilateral: Status: Acute (3) Unable to walk: Status: Acute Plan Patient is a 58-year-old female with a history significant for PMR, idiopathic pulmonary fibrosis, CAD and HLD, who reported to the ED due to increasing weakness and inability to walk with associated upper extremity and lower extremity joint pain. Workup consistent with PMR flare. Guillain-Mathias considered however given medical history, PMR more likely. PMR flare with bilateral lower extremity weakness and inability to walk - WBC normal, vitals stable, no sepsis. - ESR and CRP significantly elevated - x-rays of lower extremities negative - reflexes symmetrical - head CT negative - venous duplex negative for DVT - tick-borne panel pending - UA pending - patient started on Solu-Medrol 60 mg IV in ED, continue - admit for observation due to pain, weakness and inability to walk - add sliding scale insulin due to history of elevated blood sugars with steroids - repeat CRP tomorrow with BMP and CBC CAD/HLD - continue aspirin, statin and isosorbide Idiopathic pulmonary fibrosis - no current medications DNI - discussed in depth with the patient VTE prophylaxis: Lovenox Patient with PMR flare with associated bilateral lower extremity weakness pain and inability to walk, admission for observation and IV steroids. Quality Stroke Does the patient have a stroke diagnosis?: No VTE Prior VTE?: No VTE Risk Level:: Medical - moderate - high VTE Device Contraindication: Treatment Not Indicated VTE Drug Contraindication: N/A - Med Ordered
[2024-07-31 21:54] LABS: Glucose, Whole Blood 210 mg/dL (60-115)
[2024-07-31] MEDS: Insulin Lispro 100 UNIT/ML 3 ML VIAL SUBCUT (21:58)
[2024-07-31 22:04] VITALS: BP 101/70; PULSE 104; RESP 16; TEMP 37.4; O2SAT 95
--- NOTE | 2024-07-31 23:02 | PC.NURSE ---
Report received from Barbara CAMACHO. Moved to Overflow 4. This RN assumes care of patient at this time. Patient was able to slowly scooch herself over from one bed to another independently. Reports that right leg is more painful than left leg. Malay speaking. Call jeronimo within reach.
[2024-07-31 23:28] VITALS: BP 107/67; PULSE 102; RESP 16; TEMP 37.1; O2SAT 97
[2024-08-01] VITALS (8 sets, daily range): BP systolic 108–138; BP diastolic 62–84; PULSE 62–103; RESP 16–20; TEMP 36.1–36.6; O2SAT 96–98; BMI 26.2
--- NOTE | 2024-08-01 00:19 | MHC.EDTECH ---
Patient was assisted unto bedpan ,void urine sample collected and sent to lab .Pt requested to wear DOUG Butterfield aware .
[2024-08-01] MEDS: Morphine Sulfate 2 MG/ML CARTRIDGE IVPUSH ×3 (00:25→09:50)
[2024-08-01] MEDS: 0.9 % Sodium Chloride Flush 3 ML SYRINGE IVFLUSH ×4 (00:25→20:53)
[2024-08-01 00:30] LABS: Appearance Urine Clear; Color Urine Yellow; Glucose Urine UA Negative (Negative); Leukocyte Esterase Urine Negative (Negative); Nitrite Urine Negative (Negative); Specific Gravity - Urine 1.015 (1.005-1.025); Urine Blood Negative (Negative); Urine Ketones Negative (Negative); Urine Protein Negative (Neg-Trace)
--- NOTE | 2024-08-01 00:45 | PC.NURSE ---
Patient medicated with Morphine 2mg IV for 8 out of 10 pain to bilateral legs, but worse on right leg. Patient reported brief episode of nausea without vomiting shortly after administration, which resolved with smelling alcohol wipe and guided deep breathing. Patient thankful, calm/cooperative, watching TV. IV to right AC flushed without difficulty. Patient provided clean catch urine specimen and voided in bedpan. Urine specimen collected and sent to lab for analysis. Awaiting results. Care ongoing by this RN.
[2024-08-01 04:54] LABS: Basophils Percent Auto 0.2 % (0-2); Eosinophils Percent Auto 0.1 % (0-4); Hemoglobin 11.3 g/dl (12.0-16.0); Imm Gran Abs Auto 0.09 X10*3/uL (0.00-0.03); Lymphocytes Percent Auto 10.3 % (20-40); MANUAL DIFF FLAG SCAN; Mean Corpuscular HGB Conc 32.3 g/dl (31.0-35.0); Mean Corpuscular Hemoglobin 29.3 pg (27.0-33.0); Mean Corpuscular Volume 90.7 fL (80.0-98.0); Mean Platelet Volume 8.9 fL (9.4-12.3); Monocytes Absolute Auto 0.1 X10*3/uL (0.1-1.2); Neutrophils Absolute Auto 8.3 x10*3/uL (2.0-8.3); Neutrophils Percent Auto 87.4 % (45-73); Platelet Count 362 X10*3/uL (160-400); Red Blood Count 3.86 X10*6/uL (4.20-5.50); Red Cell Distribution Width 16.8 % (11.0-16.0); SCAN SMEAR FLAG 1; White Blood Count 9.5 X10*3/uL (4.8-10.8)
[2024-08-01 05:09] LABS: Anion Gap 11 (12-20); Blood Urea Nitrogen 12 mg/dL (9-16); Carbon Dioxide 25 mmol/L (22-29); Chloride 102 mmol/L (96-108); Creatinine Clr Calc Pharmacy 76.6; Estimated Glomerular Filt Rate > 60; Glucose Random 226 mg/dL (60-115); Potassium 4.7 mmol/L (3.3-5.1); Sodium 133 mmol/L (135-145)
[2024-08-01 05:15] LABS: SLIDE REVIEW VERIFIED
--- NOTE | 2024-08-01 06:14 | MHC.EDTECH ---
Patient slept most of the night ,0600 rounding done ,vitals taken ,Call jeronimo within Pt reach ,All safety measure in Place .
[2024-08-01 07:18] LABS: Glucose, Whole Blood 194 mg/dL (60-115)
[2024-08-01] MEDS: Insulin Lispro 100 UNIT/ML 3 ML VIAL SUBCUT ×4 (08:37→20:50)
[2024-08-01] MEDS: Enoxaparin Sodium 40 MG/0.4 ML SYRINGE SUBCUT (08:37)
--- NOTE | 2024-08-01 08:51 | HO.PM.IMPN ---
Subjective Subjective Date of Service: 08/01/24 Review of Systems Follow-up poly myalgia rheumatica flare Still with pain to lower extremities mostly right Inability to ambulate Physical Exam Vital Signs: Vital Signs: Last Vital Signs Temp 97.4 F 08/01/24 06:13 Pulse 62 08/01/24 06:13 Resp 18 08/01/24 06:25 BP 119/84 08/01/24 06:13 Pulse Ox 96 08/01/24 06:13 O2 Del Method Room Air 08/01/24 06:13 BMI result Body Mass Index 26.2 Appearing in no acute distress lung sounds are clear to auscultation heart regular rate rhythm, clear S1, S2 positive bowel sounds, abdomen is soft, nontender neuro patient is alert x3, no focal deficits Objective Data Active Medications Acetaminophen (Acetaminophen 325 Mg Tablet) 975 mg PO Q6H PRN PRN Reason: Pain, Mild 1-3,fever,headache Calcium Carbonate (Calcium Carbonate 750 Mg Tab.Chew) 750 mg PO Q4H PRN PRN Reason: Heartburn Enoxaparin Sodium (Enoxaparin Sodium 40 Mg/0.4 Ml Syringe) 40 mg SUBCUT Q24H [facility] Last Admin: 08/01/24 08:37 Dose: 40 mg Documented By: CHARMAINE Glucose (Glucose Gel 15 Gm Gel..Gram.) 15 gm PO Q15M PRN; Protocol PRN Reason: per Hypoglycemia Standing Ord. Dextrose (D10) 250 mls @ 750 mls/hr IV Q15M PRN; Protocol PRN Reason: per Hypoglycemia Standing Ord. Insulin Human Lispro (Insulin Lispro 100 Unit/Ml 3 Ml Vial) 0 unit SUBCUT QIDACHS [facility]; Protocol Last Admin: 08/01/24 08:37 Dose: 2 unit Documented By: CHARMAINE Magnesium Hydroxide (Milk Of Magnesia 30 Ml Oral.Susp) 30 ml PO DAILY PRN PRN Reason: Constipation Melatonin (Melatonin 3 Mg Tablet) 6 mg PO BEDTIME PRN PRN Reason: Insomnia Methylprednisolone Sodium Succinate (Methylprednisolone Sod Succ 125 Mg/2 Ml Vial) 60 mg IVPUSH DAILY [facility] Morphine Sulfate (Morphine Sulfate 2 Mg/Ml Cartridge) 2 mg IVPUSH Q3H PRN; Protocol PRN Reason: Pain, Severe (Pain Scale 7-10) Last Admin: 08/01/24 06:25 Dose: 2 mg Documented By: KYRA Sodium Chloride (0.9 % Sodium Chloride Flush 3 Ml Syringe) [facility] Last Admin: 08/01/24 08:37 Dose: 3 ml Documented By: CHARMAINE Labs 08/01/24 04:16 08/01/24 04:16 Labs: Laboratory Results - last 24 hr 07/31/24 07/31/24 07/31/24 11:39 19:12 21:49 MCV 92.2 MCH 29.5 MCHC 32.0 RDW 17.0 H Plt Count 353 MPV 9.1 L Immature Gran % (Auto) 0.8 H Neut % (Auto) 79.7 H Lymph % (Auto) 12.7 L [place] % (Auto) 5.8 Eos % (Auto) 0.6 Baso % (Auto) 0.4 Lymph # (Auto) 1.2 [place] # (Auto) 0.5 Eos # (Auto) 0.1 Baso # (Auto) 0.0 Abs Immat Gran (auto) 0.07 H Absolute Neuts (auto) 7.4 Absolute Nucleated RBC 0.000 Nucleated RBC % (auto) 0.0 Smear Tech's Comments ESR 92 H Anion Gap 10 L Estim Creat Clear Calc 80.2 Estimated GFR > 60 POC Glucose 210 H Random Glucose 160 H Calcium 8.8 D Total Bilirubin 0.3 AST 21 ALT 13 Alkaline Phosphatase 101 Total Creatine Kinase 167 H C-Reactive Protein 28.51 H B-Natriuretic Peptide < 10 Total Protein 6.2 L Albumin 2.7 L Urine Color Urine Appearance Urine pH Ur Specific [place] Urine Protein Urine Glucose (UA) Urine Ketones Urine Blood Urine Nitrite Ur Leukocyte Esterase Influenza Type A (PCR) NEGATIVE Influenza Type B (PCR) NEGATIVE RSV RNA Qual (PCR) NEGATIVE SARS-CoV-2 RNA (RT-PCR) NEGATIVE 08/01/24 08/01/24 08/01/24 00:18 04:16 07:12 MCV 90.7 MCH 29.3 MCHC 32.3 RDW 16.8 H Plt Count 362 MPV 8.9 L Immature Gran % (Auto) 1.0 H Neut % (Auto) 87.4 H Lymph % (Auto) 10.3 L [place] % (Auto) 1.0 L Eos % (Auto) 0.1 Baso % (Auto) 0.2 Lymph # (Auto) 1.0 L [place] # (Auto) 0.1 Eos # (Auto) 0.0 Baso # (Auto) 0.0 Abs Immat Gran (auto) 0.09 H Absolute Neuts (auto) 8.3 Absolute Nucleated RBC 0.000 Nucleated RBC % (auto) 0.0 Smear Tech's Comments VERIFIED ESR Anion Gap 11 L Estim Creat Clear Calc 76.6 Estimated GFR > 60 POC Glucose 194 H Random Glucose 226 H Calcium 9.0 Total Bilirubin AST ALT Alkaline Phosphatase Total Creatine Kinase C-Reactive Protein 27.80 H B-Natriuretic Peptide Total Protein Albumin Urine Color Yellow Urine Appearance Clear Urine pH 8.0 Ur Specific [place] 1.015 Urine Protein Negative Urine Glucose (UA) Negative Urine Ketones Negative Urine Blood Negative Urine Nitrite Negative Ur Leukocyte Esterase Negative Influenza Type A (PCR) Influenza Type B (PCR) RSV RNA Qual (PCR) SARS-CoV-2 RNA (RT-PCR) Assessment and Plan (1) Polymyalgia rheumatica: Status: Acute Plan Patient is a 58-year-old female with a history significant for PMR, idiopathic pulmonary fibrosis, CAD and HLD, who reported to the ED due to increasing weakness and inability to walk with associated upper extremity and lower extremity joint pain. Workup consistent with PMR flare. Guillain-[place] considered however given medical history, PMR more likely. PMR flare with bilateral lower extremity weakness and inability to walk no sepsis. ESR and CRP significantly elevated x-rays of lower extremities negative reflexes symmetrical head CT negative venous duplex negative for DVT tick-borne panel pending UA neg Solu-Medrol 60 mg IV Elevated blood glucose from steroids ss and POC during hospital stay unless A1C is elevated CAD/HLD continue aspirin, isosorbideand hold statin Idiopathic pulmonary fibrosis no current medications Mental health continue buspirone, prazosin and trazodone DNI VTE prophylaxis: Lovenox Patient with PMR flare with associated bilateral lower extremity weakness pain and inability to walk, admission for observation and IV steroids. Quality Stroke Does the patient have a stroke diagnosis?: No VTE Prior VTE?: No VTE Risk Level:: Medical - moderate - high VTE Device Contraindication: Treatment Not Indicated VTE Drug Contraindication: N/A - Med Ordered
[2024-08-01] MEDS: methylPREDNISolone Sod Succ 125 MG/2 ML VIAL 60 MG IVPUSH (09:06)
[2024-08-01] MEDS: Aspirin Enteric Coated 81 MG TABLET.DR PO (09:06)
[2024-08-01] MEDS: Baclofen 10 MG TABLET PO ×2 (09:06→20:49)
--- NOTE | 2024-08-01 09:14 | MHC.EDTECH ---
Pt ate 100% of her breakfast. 240cc of fluids
[2024-08-01 09:43] LABS: Estimated Average Glucose 137 mg/dL; Hemoglobin A1C 135.2872 umol/L; Hemoglobin A1c % 6.4 % (<6.0); Total Hemoglobin (HGBA1C) 2941.6846 umol/L
[2024-08-01] MEDS: Isosorbide Mononitrate 30 MG TAB.ER.24H PO (09:49)
[2024-08-01] MEDS: busPIRone HCl 5 MG TABLET 7.5 MG PO ×2 (09:49→20:49)
[2024-08-01 11:03] LABS: Glucose, Whole Blood 205 mg/dL (60-115)
--- NOTE | 2024-08-01 13:30 | MHC.CM.PN ---
CM met with Patient and her Niece/HCP/Caregiver/Heather at bedside, with the assist of a [facility] Furnace Reliner and addressed PICKETT with her (original was given to Patient and a copy has been placed on the chart). Patient lives alone in an apartment but she plans to stay at her Niece's home at time of dc. 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 Home/self care is the goal and CM has initiated and will follow for dc planning. PCP is Dr. Lex Rich @ [place]. Niece will transport to home.
[2024-08-01 16:16] LABS: Glucose, Whole Blood 222 mg/dL (60-115)
[2024-08-01 20:28] LABS: Glucose, Whole Blood 305 mg/dL (60-115)
[2024-08-01] MEDS: traZODone HCL 100 MG TABLET PO (20:49)
[2024-08-01] MEDS: Prazosin HCL 1 MG CAPSULE PO (20:49)
[2024-08-01] MEDS: Albuterol/Iprat 2.5/0.5MG 3 ML AMPUL.NEB INHALE (22:11)
[2024-08-02 03:24] VITALS: BP 99/63; PULSE 69; RESP 18; TEMP 36.4; O2SAT 97
[2024-08-02 07:36] VITALS: BP 116/61; PULSE 67; RESP 16; TEMP 36.1; O2SAT 98
[2024-08-02 07:47] LABS: Glucose, Whole Blood 183 mg/dL (60-115)
[2024-08-02] MEDS: busPIRone HCl 5 MG TABLET 7.5 MG PO ×2 (08:16→21:57)
[2024-08-02] MEDS: Insulin Lispro 100 UNIT/ML 3 ML VIAL SUBCUT ×4 (08:18→21:59)
[2024-08-02] MEDS: 0.9 % Sodium Chloride Flush 3 ML SYRINGE IVFLUSH ×3 (08:18→22:00)
[2024-08-02] MEDS: Aspirin Enteric Coated 81 MG TABLET.DR PO (08:19)
[2024-08-02] MEDS: Enoxaparin Sodium 40 MG/0.4 ML SYRINGE SUBCUT (08:19)
[2024-08-02] MEDS: Isosorbide Mononitrate 30 MG TAB.ER.24H PO (08:19)
[2024-08-02] MEDS: Baclofen 10 MG TABLET PO ×2 (08:19→21:57)
[2024-08-02] MEDS: methylPREDNISolone Sod Succ 125 MG/2 ML VIAL 60 MG IVPUSH (08:20)
[2024-08-02 11:25] VITALS: BP 100/58; PULSE 69; RESP 16; TEMP 36.2; O2SAT 98
[2024-08-02 11:45] LABS: Glucose, Whole Blood 319 mg/dL (60-115)
--- NOTE | 2024-08-02 14:30 | P.PNIM_ITS ---
Subjective Subjective Date of Service: 08/02/24 Interval History: Seen and examined this morning History obtained with the assistance of a welder railcar mechanic Patient reports some improvement in lower extremity weakness and pain Review of Systems Review of Systems: Yes all other systems are reviewed and are negative Constitutional Constitutional: Denies chills and Denies fever(s) Cardiovascular Cardiovascular: Denies chest pain Gastrointestinal Gastrointestinal: Denies abdominal pain, Denies nausea and Denies vomiting Physical Exam 2 Vital Signs: Vital Signs: Last Vital Signs Temp 97.1 F 08/02/24 11:25 Pulse 69 08/02/24 11:25 Resp 16 08/02/24 11:25 BP 100/58 L 08/02/24 11:25 Pulse Ox 98 08/02/24 11:25 O2 Del Method Room Air 08/02/24 11:25 BMI result Body Mass Index 26.2 Const: General: cooperative, comfortable, alert and awake Nutritional Appearance: average body habitus Orientation/consciousness: patient oriented x3 Resp: Effort & Inspection: normal respiratory effort, able to speak in complete sentences, no respiratory distress and no use of accessory muscles A uscultation: clear to auscultation bilaterally Cardio: Rate: regular rate GI: Inspection: No distended Palpation (GI): Soft to palpation Neuro: General: patient oriented x3, moves all extremities and CN's II-XI intact bilaterally Objective Data Active Medications Acetaminophen (Acetaminophen 325 Mg Tablet) 975 mg PO Q6H PRN PRN Reason: Pain, Mild 1-3,fever,headache Albuterol/Ipratropium (Albuterol/Iprat 2.5/0.5mg 3 Ml Ampul.Neb) 3 ml INHALE Q4H PRN PRN Reason: Wheezing Last Admin: 08/01/24 22:11 Dose: 3 ml Documented By: DEON Aspirin (Aspirin Enteric Coated 81 Mg Tablet.) 81 mg PO DAILY [facility] Last Admin: 08/02/24 08:19 Dose: 81 mg Documented By: STEPH Baclofen (Baclofen 10 Mg Tablet) 10 mg PO BID [facility] Last Admin: 08/02/24 08:19 Dose: 10 mg Documented By: STEPH Buspirone HCl (Buspirone Hcl 5 Mg Tablet) 7.5 mg PO BID [facility] Last Admin: 08/02/24 08:16 Dose: 7.5 mg Documented By: STEPH Calcium Carbonate (Calcium Carbonate 750 Mg Tab.Chew) 750 mg PO Q4H PRN PRN Reason: Heartburn Enoxaparin Sodium (Enoxaparin Sodium 40 Mg/0.4 Ml Syringe) 40 mg SUBCUT Q24H [facility] Last Admin: 08/02/24 08:19 Dose: 40 mg Documented By: STEPH Glucose (Glucose Gel 15 Gm Gel..Gram.) 15 gm PO Q15M PRN; Protocol PRN Reason: per Hypoglycemia Standing Ord. Dextrose (D10) 250 mls @ 750 mls/hr IV Q15M PRN; Protocol PRN Reason: per Hypoglycemia Standing Ord. Insulin Human Lispro (Insulin Lispro 100 Unit/Ml 3 Ml Vial) 0 unit SUBCUT QIDACHS [facility]; Protocol Last Admin: 08/02/24 12:05 Dose: 8 unit Documented By: STEPH Isosorbide Mononitrate (Isosorbide Mononitrate 30 Mg Tab.Er.24h) 30 mg PO DAILY [facility]; Protocol Last Admin: 08/02/24 08:19 Dose: 30 mg Documented By: STEPH Magnesium Hydroxide (Milk Of Magnesia 30 Ml Oral.Susp) 30 ml PO DAILY PRN PRN Reason: Constipation Melatonin (Melatonin 3 Mg Tablet) 6 mg PO BEDTIME PRN PRN Reason: Insomnia Methylprednisolone Sodium Succinate (Methylprednisolone Sod Succ 125 Mg/2 Ml Vial) 60 mg IVPUSH DAILY [facility] Last Admin: 08/02/24 08:20 Dose: 60 mg Documented By: STEPH Morphine Sulfate (Morphine Sulfate 2 Mg/Ml Cartridge) 2 mg IVPUSH Q3H PRN; Protocol PRN Reason: Pain, Severe (Pain Scale 7-10) Last Admin: 08/01/24 09:50 Dose: 2 mg Documented By: CHARMAINE Prazosin HCl (Prazosin Hcl 1 Mg Capsule) 1 mg PO BEDTIME [facility]; Protocol Last Admin: 08/01/24 20:49 Dose: 1 mg Documented By: SANDY Sodium Chloride (0.9 % Sodium Chloride Flush 3 Ml Syringe) 3 ml IVFLUSH QSHIFT [facility] Last Admin: 08/02/24 08:18 Dose: 3 ml Documented By: STEPH Trazodone HCl (Trazodone Hcl 100 Mg Tablet) 100 mg PO BEDTIME [facility] Last Admin: 08/01/24 20:49 Dose: 100 mg Documented By: SANDY Labs 08/01/24 04:16 08/01/24 04:16 Labs: Laboratory Results - last 24 hr 08/01/24 08/01/24 08/02/24 16:13 20:16 07:41 POC Glucose 222 H 305 H 183 H 08/02/24 11:29 POC Glucose 319 H Assessment and Plan (1) Polymyalgia rheumatica: Status: Acute Plan Patient is a 58-year-old female with a history significant for PMR, idiopathic pulmonary fibrosis, CAD and HLD, who reported to the ED due to increasing weakness and inability to walk with associated upper extremity and lower extremity joint pain. Workup consistent with PMR flare. Guillain-[place] considered however given medical history, PMR more likely. PMR flare with bilateral lower extremity weakness no sepsis. ESR and CRP significantly elevated x-rays of lower extremities negative, CT head negative reflexes symmetrical venous duplex negative for DVT tick-borne panel pending Solu-Medrol 60 mg IV Elevated blood glucose from steroids ss and POC during hospital stay unless A1C is elevated CAD/HLD continue aspirin, isosorbide hold statin Idiopathic pulmonary fibrosis no current medications. no respiratory symptoms or hypoxia Mental health continue buspirone, prazosin and trazodone DNI VTE prophylaxis: Lovenox Patient with PMR flare with associated bilateral lower extremity weakness pain and inability to walk, admission for observation and IV steroids. Quality Stroke Does the patient have a stroke diagnosis?: No VTE Prior VTE?: No VTE Risk Level:: Medical - moderate - high VTE Device Contraindication: Treatment Not Indicated VTE Drug Contraindication: N/A - Med Ordered
[2024-08-02 15:47] VITALS: BP 117/66; PULSE 60; RESP 18; TEMP 36; O2SAT 98
--- NOTE | 2024-08-02 17:57 | PC.NURSE ---
POC 171, not transferring from POC machine to computer. POC confirmed by Frank Cordova RN. Wendy TARIQ made aware. 2 units of lispro given per the sliding scale.
[2024-08-02 19:41] VITALS: BP 103/63; PULSE 58; RESP 18; TEMP 36.4; O2SAT 98
[2024-08-02 20:06] LABS: Glucose, Whole Blood 278 mg/dL (60-115)
[2024-08-02 21:55] VITALS: BP 122/74; PULSE 71
[2024-08-02] MEDS: Prazosin HCL 1 MG CAPSULE PO (21:56)
[2024-08-02] MEDS: traZODone HCL 100 MG TABLET PO (21:57)
[2024-08-03] VITALS (9 sets, daily range): BP systolic 102–121; BP diastolic 60–69; PULSE 58–77; RESP 16–18; TEMP 36–36.9; O2SAT 97–99
[2024-08-03] MEDS: Acetaminophen 325 MG TABLET 975 MG PO ×2 (00:32→21:56)
--- NOTE | 2024-08-03 00:35 | PC.NURSE ---
Pt requested PRN Tylenol for 6/10 pain to R leg.
[2024-08-03 07:45] LABS: Glucose, Whole Blood 99 mg/dL (60-115)
[2024-08-03 09:04] LABS: Glucose, Whole Blood 171 mg/dL (60-115)
[2024-08-03] MEDS: Baclofen 10 MG TABLET PO ×2 (09:05→21:58)
[2024-08-03] MEDS: busPIRone HCl 5 MG TABLET 7.5 MG PO ×2 (09:05→21:57)
[2024-08-03] MEDS: methylPREDNISolone Sod Succ 125 MG/2 ML VIAL 60 MG IVPUSH (09:05)
[2024-08-03] MEDS: Enoxaparin Sodium 40 MG/0.4 ML SYRINGE SUBCUT (09:06)
[2024-08-03] MEDS: Isosorbide Mononitrate 30 MG TAB.ER.24H PO (09:06)
[2024-08-03] MEDS: Aspirin Enteric Coated 81 MG TABLET.DR PO (09:06)
[2024-08-03] MEDS: 0.9 % Sodium Chloride Flush 3 ML SYRINGE IVFLUSH ×3 (09:11→21:59)
[2024-08-03 11:36] LABS: Glucose, Whole Blood 150 mg/dL (60-115)
[2024-08-03 16:20] LABS: Glucose, Whole Blood 267 mg/dL (60-115)
[2024-08-03] MEDS: Insulin Lispro 100 UNIT/ML 3 ML VIAL SUBCUT (16:57)
--- NOTE | 2024-08-03 17:34 | HO.PM.IMPN ---
Subjective Subjective Date of Service: 08/03/24 Interval History: Seen and examined this morning Follow-up for polymyalgia rheumatica flare Slowly improving Review of Systems Review of Systems: Yes all other systems are reviewed and are negative Constitutional Constitutional: Denies chills and Denies fever(s) ENT Ears, Nose, Mouth, and Throat: Denies dizziness Cardiovascular Cardiovascular: Denies chest pain and Denies palpitations Neurologic Neurologic: Denies dizziness Endocrine Endocrine: Denies palpitations Physical Exam Vital Signs: Vital Signs: Last Vital Signs Temp 97.5 F 08/03/24 15:34 Pulse 68 08/03/24 15:34 Resp 18 08/03/24 15:34 BP 108/65 08/03/24 15:34 Pulse Ox 98 08/03/24 15:34 O2 Del Method Room Air 08/03/24 15:34 BMI result Body Mass Index 26.2 Const: General: cooperative, comfortable, alert and awake Nutritional Appearance: average body habitus Orientation/consciousness: patient oriented x3 Resp: Effort & Inspection: normal respiratory effort, able to speak in complete sentences, no respiratory distress and no use of accessory muscles Auscultation: clear to auscultation bilaterally Cardio: Rate: regular rate GI: Inspection: No distended Palpation (GI): Soft to palpation Neuro: General: patient oriented x3, moves all extremities and CN's II-XI intact bilaterally Objective Data Active Medications Acetaminophen (Acetaminophen 325 Mg Tablet) 975 mg PO Q6H PRN PRN Reason: Pain, Mild 1-3,fever,headache Last Admin: 08/03/24 00:32 Dose: 975 mg Documented By: REI Comments: per pt request Albuterol/Ipratropium (Albuterol/Iprat 2.5/0.5mg 3 Ml Ampul.Neb) 3 ml INHALE Q4H PRN PRN Reason: Wheezing Last Admin: 08/01/24 22:11 Dose: 3 ml Documented By: DEON Aspirin (Aspirin Enteric Coated 81 Mg Tablet.) 81 mg PO DAILY [facility] Last Admin: 08/03/24 09:06 Dose: 81 mg Documented By: STEPH Baclofen (Baclofen 10 Mg Tablet) 10 mg PO BID [facility] Last Admin: 08/03/24 09:05 Dose: 10 mg Documented By: STEPH Buspirone HCl (Buspirone Hcl 5 Mg Tablet) 7.5 mg PO BID [facility] Last Admin: 08/03/24 09:05 Dose: 7.5 mg Documented By: STEPH Calcium Carbonate (Calcium Carbonate 750 Mg Tab.Chew) 750 mg PO Q4H PRN PRN Reason: Heartburn Enoxaparin Sodium (Enoxaparin Sodium 40 Mg/0.4 Ml Syringe) 40 mg SUBCUT Q24H [facility] Last Admin: 08/03/24 09:06 Dose: 40 mg Documented By: STEPH Glucose (Glucose Gel 15 Gm Gel..Gram.) 15 gm PO Q15M PRN; Protocol PRN Reason: per Hypoglycemia Standing Ord. Dextrose (D10) 250 mls @ 750 mls/hr IV Q15M PRN; Protocol PRN Reason: per Hypoglycemia Standing Ord. Insulin Human Lispro (Insulin Lispro 100 Unit/Ml 3 Ml Vial) 0 unit SUBCUT QIDACHS [facility]; Protocol Last Admin: 08/03/24 16:57 Dose: 6 unit Documented By: STEPH Isosorbide Mononitrate (Isosorbide Mononitrate 30 Mg Tab.Er.24h) 30 mg PO DAILY [facility]; Protocol Last Admin: 08/03/24 09:06 Dose: 30 mg Documented By: STEPH Magnesium Hydroxide (Milk Of Magnesia 30 Ml Oral.Susp) 30 ml PO DAILY PRN PRN Reason: Constipation Melatonin (Melatonin 3 Mg Tablet) 6 mg PO BEDTIME PRN PRN Reason: Insomnia Methylprednisolone Sodium Succinate (Methylprednisolone Sod Succ 125 Mg/2 Ml Vial) 60 mg IVPUSH DAILY [facility] Last Admin: 08/03/24 09:05 Dose: 60 mg Documented By: STEPH Oxycodone HCl (Oxycodone Hcl Immed Release 5 Mg Tablet) 5 mg PO Q6H PRN PRN Reason: Pain, Moderate(Pain Scale 4-6) Prazosin HCl (Prazosin Hcl 1 Mg Capsule) 1 mg PO BEDTIME [facility]; Protocol Last Admin: 08/02/24 21:56 Dose: 1 mg Documented By: REI Sodium Chloride (0.9 % Sodium Chloride Flush 3 Ml Syringe) 3 ml IVFLUSH QSHIFT [facility] Last Admin: 08/03/24 16:58 Dose: 3 ml Documented By: STEPH Trazodone HCl (Trazodone Hcl 100 Mg Tablet) 100 mg PO BEDTIME [facility] Last Admin: 08/02/24 21:57 Dose: 100 mg Documented By: REI Labs 08/01/24 04:16 08/01/24 04:16 Labs: Laboratory Results - last 24 hr 08/02/24 08/02/24 08/03/24 16:16 20:02 07:30 POC Glucose 171 H 278 H 99 08/03/24 08/03/24 11:18 16:11 POC Glucose 150 H 267 H Assessment and Plan (1) Polymyalgia rheumatica: Status: Acute Plan Patient is a 58-year-old female with a history significant for PMR, idiopathic pulmonary fibrosis, CAD and HLD, who reported to the ED due to increasing weakness and inability to walk with associated upper extremity and lower extremity joint pain. Workup consistent with PMR flare. Guillain-[place] considered however given medical history, PMR more likely. PMR flare with bilateral lower extremity weakness no sepsis. ESR and CRP significantly elevated x-rays of lower extremities negative, CT head negative reflexes symmetrical venous duplex negative for DVT tick-borne panel pending Solu-Medrol 60 mg IV recommend outpatient follow up with rheumatology seen by PT rec STR Elevated blood glucose from steroids ss and POC during hospital stay CAD/HLD continue aspirin, isosorbide hold statin Idiopathic pulmonary fibrosis no current medications. no respiratory symptoms or hypoxia Mental health continue buspirone, prazosin and trazodone DNI VTE prophylaxis: Lovenox Patient with PMR flare with associated bilateral lower extremity weakness pain and inability to walk, admission for observation and IV steroids. Quality Stroke Does the patient have a stroke diagnosis?: No VTE Prior VTE?: No VTE Risk Level:: Medical - moderate - high VTE Device Contraindication: Treatment Not Indicated VTE Drug Contraindication: N/A - Med Ordered
[2024-08-03 17:49] LABS: A. Phagocytphilium DNA,RT-PCR NOT DETECTED (NOT DETECTED); Babesia Microti DNA, RT-PCR NOT DETECTED (NOT DETECTED); Borrelia Miyamotoi,DNA RT-PCR NOT DETECTED (NOT DETECTED); E.Chaffeensis DNA RT-PCR NOT DETECTED (NOT DETECTED); Lyme(Borrelia ssp)DNA RT-PCR NOT DETECTED (NOT DETECTED)
[2024-08-03 20:28] LABS: Glucose, Whole Blood 142 mg/dL (60-115)
[2024-08-03] MEDS: Prazosin HCL 1 MG CAPSULE PO (21:58)
[2024-08-03] MEDS: traZODone HCL 100 MG TABLET PO (21:58)
[2024-08-04 04:00] VITALS: BP 113/72; PULSE 62; RESP 18; TEMP 36.6; O2SAT 99
[2024-08-04 07:18] VITALS: BP 121/73; PULSE 56; RESP 16; TEMP 36; O2SAT 99
[2024-08-04 07:24] LABS: Glucose, Whole Blood 86 mg/dL (60-115)
[2024-08-04] MEDS: Baclofen 10 MG TABLET PO ×2 (08:56→19:44)
[2024-08-04] MEDS: busPIRone HCl 5 MG TABLET 7.5 MG PO ×2 (08:56→19:44)
[2024-08-04] MEDS: Isosorbide Mononitrate 30 MG TAB.ER.24H PO (08:56)
[2024-08-04] MEDS: Aspirin Enteric Coated 81 MG TABLET.DR PO (08:56)
[2024-08-04] MEDS: Enoxaparin Sodium 40 MG/0.4 ML SYRINGE SUBCUT (08:58)
[2024-08-04] MEDS: Acetaminophen 325 MG TABLET 975 MG PO ×2 (08:58→15:13)
[2024-08-04] MEDS: methylPREDNISolone Sod Succ 125 MG/2 ML VIAL 60 MG IVPUSH (08:58)
[2024-08-04] MEDS: 0.9 % Sodium Chloride Flush 3 ML SYRINGE IVFLUSH ×3 (08:59→19:45)
--- NOTE | 2024-08-04 10:00 | PC.NURSE ---
PCT reported to this RN that patient refused morning care.
[2024-08-04 11:12] LABS: Glucose, Whole Blood 150 mg/dL (60-115)
[2024-08-04 11:16] VITALS: BP 102/55; PULSE 75; RESP 16; TEMP 36.9; O2SAT 98
[2024-08-04 15:20] VITALS: BP 100/62; PULSE 85; RESP 18; TEMP 36.4; O2SAT 97
[2024-08-04 15:29] LABS: Glucose, Whole Blood 295 mg/dL (60-115)
--- NOTE | 2024-08-04 16:04 | HO.PM.IMPN ---
Subjective Subjective Date of Service: 08/04/24 Interval History: Seen and examined this morning Follow-up for flare of polymyalgia rheumatica Patient continues to improve with strength and pain Review of Systems Review of Systems: Yes all other systems are reviewed and are negative Constitutional Constitutional: Denies chills and Denies fever(s) Physical Exam Vital Signs: Vital Signs: Last Vital Signs Temp 97.6 F 08/04/24 15:20 Pulse 85 08/04/24 15:20 Resp 18 08/04/24 15:20 BP 100/62 08/04/24 15:20 Pulse Ox 97 08/04/24 15:20 O2 Del Method Room Air 08/04/24 15:20 BMI result Body Mass Index 26.2 Const: General: cooperative, comfortable, alert and awake Nutritional Appearance: average body habitus Orientation/consciousness: patient oriented x3 Resp: Effort & Inspection: normal respiratory effort, able to speak in complete sentences, no respiratory distress and no use of accessory muscles Auscultation: clear to auscultation bilaterally Cardio: Rate: regular rate GI: Inspection: No distended Palpation (GI): Soft to palpation Neuro: General: patient oriented x3, moves all extremities and CN's II-XI intact bilaterally Objective Data Active Medications Acetaminophen (Acetaminophen 325 Mg Tablet) 975 mg PO Q6H PRN PRN Reason: Pain, Mild 1-3,fever,headache Last Admin: 08/04/24 15:13 Dose: 975 mg Documented By: RIYA Albuterol/Ipratropium (Albuterol/Iprat 2.5/0.5mg 3 Ml Ampul.Neb) 3 ml INHALE Q4H PRN PRN Reason: Wheezing Last Admin: 08/01/24 22:11 Dose: 3 ml Documented By: DEON Aspirin (Aspirin Enteric Coated 81 Mg Tablet.) 81 mg PO DAILY [facility] Last Admin: 08/04/24 08:56 Dose: 81 mg Documented By: RIYA Baclofen (Baclofen 10 Mg Tablet) 10 mg PO BID [facility] Last Admin: 08/04/24 08:56 Dose: 10 mg Documented By: RIYA Buspirone HCl (Buspirone Hcl 5 Mg Tablet) 7.5 mg PO BID [facility] Last Admin: 08/04/24 08:56 Dose: 7.5 mg Documented By: RIYA Calcium Carbonate (Calcium Carbonate 750 Mg Tab.Chew) 750 mg PO Q4H PRN PRN Reason: Heartburn Enoxaparin Sodium (Enoxaparin Sodium 40 Mg/0.4 Ml Syringe) 40 mg SUBCUT Q24H [facility] Last Admin: 08/04/24 08:58 Dose: 40 mg Documented By: RIYA Glucose (Glucose Gel 15 Gm Gel..Gram.) 15 gm PO Q15M PRN; Protocol PRN Reason: per Hypoglycemia Standing Ord. Dextrose (D10) 250 mls @ 750 mls/hr IV Q15M PRN; Protocol PRN Reason: per Hypoglycemia Standing Ord. Insulin Human Lispro (Insulin Lispro 100 Unit/Ml 3 Ml Vial) 0 unit SUBCUT QIDACHS [facility]; Protocol Last Admin: 08/04/24 11:16 Dose: Not Given Documented By: RIYA Non-Admin Reason: No Insulin Coverage Isosorbide Mononitrate (Isosorbide Mononitrate 30 Mg Tab.Er.24h) 30 mg PO DAILY [facility]; Protocol Last Admin: 08/04/24 08:56 Dose: 30 mg Documented By: RIYA Magnesium Hydroxide (Milk Of Magnesia 30 Ml Oral.Susp) 30 ml PO DAILY PRN PRN Reason: Constipation Melatonin (Melatonin 3 Mg Tablet) 6 mg PO BEDTIME PRN PRN Reason: Insomnia Methylprednisolone Sodium Succinate (Methylprednisolone Sod Succ 125 Mg/2 Ml Vial) 60 mg IVPUSH DAILY [facility] Last Admin: 08/04/24 08:58 Dose: 60 mg Documented By: RIYA Oxycodone HCl (Oxycodone Hcl Immed Release 5 Mg Tablet) 5 mg PO Q6H PRN PRN Reason: Pain, Moderate(Pain Scale 4-6) Prazosin HCl (Prazosin Hcl 1 Mg Capsule) 1 mg PO BEDTIME [facility]; Protocol Last Admin: 08/03/24 21:58 Dose: 1 mg Documented By: CESAR Sodium Chloride (0.9 % Sodium Chloride Flush 3 Ml Syringe) 3 ml IVFLUSH QSHIFT [facility] Last Admin: 08/04/24 08:59 Dose: 3 ml Documented By: RIYA Trazodone HCl (Trazodone Hcl 100 Mg Tablet) 100 mg PO BEDTIME [facility] Last Admin: 08/03/24 21:58 Dose: 100 mg Documented By: CESAR Labs 08/01/24 04:16 08/01/24 04:16 Labs: Laboratory Results - last 24 hr 07/31/24 08/03/24 08/03/24 18:40 16:11 20:21 POC Glucose 267 H 142 H A.phagocytophil DNA PCR NOT DETECTED Babesia microti DNA PCR NOT DETECTED Borrelia sp DNA (PCR) NOT DETECTED Borrelia miyamotoi (PCR) NOT DETECTED E.chaffeensis DNA (PCR) NOT DETECTED Tick-borne Disease PCR SEE NOTE 08/04/24 08/04/24 08/04/24 07:16 11:06 15:19 POC Glucose 86 150 H 295 H A.phagocytophil DNA PCR Babesia microti DNA PCR Borrelia sp DNA (PCR) Borrelia miyamotoi (PCR) E.chaffeensis DNA (PCR) Tick-borne Disease PCR Assessment and Plan (1) Polymyalgia rheumatica: Status: Acute Plan Patient is a 58-year-old female with a history significant for PMR, idiopathic pulmonary fibrosis, CAD and HLD, who reported to the ED due to increasing weakness and inability to walk with associated upper extremity and lower extremity joint pain. Workup consistent with PMR flare. Guillain-[place] considered however given medical history, PMR more likely. PMR flare with bilateral lower extremity weakness. slowly improving no sepsis. ESR and CRP significantly elevated x-rays of lower extremities negative, CT head negative venous duplex negative for DVT tick-borne panel negative continue IV Solu-Medrol recommend outpatient follow up with rheumatology seen by PT rec STR Elevated blood glucose from steroids ss and POC during hospital stay CAD/HLD continue aspirin, isosorbide hold statin Idiopathic pulmonary fibrosis no current medications. no respiratory symptoms or hypoxia Mental health continue buspirone, prazosin and trazodone DNI VTE prophylaxis: Lovenox requires ongoing inpatient stay for management of bilateral lower extremity weakness pain and difficulty walking, iv steroids Quality Stroke Does the patient have a stroke diagnosis?: No VTE Prior VTE?: No VTE Risk Level:: Medical - moderate - high VTE Device Contraindication: Treatment Not Indicated VTE Drug Contraindication: N/A - Med Ordered
[2024-08-04] MEDS: Insulin Lispro 100 UNIT/ML 3 ML VIAL SUBCUT ×2 (16:24→19:41)
[2024-08-04 19:29] VITALS: BP 105/59; PULSE 76; RESP 17; TEMP 36.3; O2SAT 99
[2024-08-04 19:31] LABS: Glucose, Whole Blood 158 mg/dL (60-115)
[2024-08-04] MEDS: Prazosin HCL 1 MG CAPSULE PO (19:43)
[2024-08-04] MEDS: traZODone HCL 100 MG TABLET PO (19:44)
[2024-08-05] VITALS (7 sets, daily range): BP systolic 100–135; BP diastolic 59–90; PULSE 70–87; RESP 12–18; TEMP 36.1–36.8; O2SAT 97–99
[2024-08-05 07:55] LABS: Glucose, Whole Blood 93 mg/dL (60-115)
[2024-08-05] MEDS: Isosorbide Mononitrate 30 MG TAB.ER.24H PO (08:24)
[2024-08-05] MEDS: Enoxaparin Sodium 40 MG/0.4 ML SYRINGE SUBCUT (08:24)
[2024-08-05] MEDS: methylPREDNISolone Sod Succ 125 MG/2 ML VIAL 40 MG IVPUSH (08:25)
[2024-08-05] MEDS: Baclofen 10 MG TABLET PO ×2 (08:25→19:53)
[2024-08-05] MEDS: busPIRone HCl 5 MG TABLET 7.5 MG PO ×2 (08:25→19:53)
[2024-08-05] MEDS: Aspirin Enteric Coated 81 MG TABLET.DR PO (08:25)
[2024-08-05] MEDS: 0.9 % Sodium Chloride Flush 3 ML SYRINGE IVFLUSH ×3 (08:26→19:53)
[2024-08-05] MEDS: Acetaminophen 325 MG TABLET 975 MG PO (11:46)
[2024-08-05 11:49] LABS: Glucose, Whole Blood 172 mg/dL (60-115)
--- NOTE | 2024-08-05 12:02 | P.PNIM_ITS ---
Subjective Subjective Date of Service: 08/05/24 Interval History: seen and examined this morning follow up for PM flare getting better each day Review of Systems Review of Systems: Yes all other systems are reviewed and are negative Constitutional Constitutional: Denies chills and Denies fever(s) Physical Exam 2 Vital Signs: Vital Signs: Last Vital Signs Temp 97.0 F 08/05/24 08:07 Pulse 77 08/05/24 08:07 Resp 12 08/05/24 08:07 BP 135/78 08/05/24 08:07 Pulse Ox 99 08/05/24 08:07 O2 Del Method Room Air 08/05/24 08:07 BMI result Body Mass Index 26.2 Const: General: cooperative, comfortable, alert and awake Nutritional Appearance: average body habitus Orientation/consciousness: patient oriented x3 Resp: Effort & Inspection: normal respiratory effort, able to speak in complete sentences, no respiratory distress and no use of accessory muscles A uscultation: clear to auscultation bilaterally Cardio: Rate: regular rate GI: Inspection: No distended Palpation (GI): Soft to palpation Neuro: General: patient oriented x3, moves all extremities and CN's II-XI intact bilaterally Objective Data Active Medications Acetaminophen (Acetaminophen 325 Mg Tablet) 975 mg PO Q6H PRN PRN Reason: Pain, Mild 1-3,fever,headache Last Admin: 08/05/24 11:46 Dose: 975 mg Documented By: AL Albuterol/Ipratropium (Albuterol/Iprat 2.5/0.5mg 3 Ml Ampul.Neb) 3 ml INHALE Q4H PRN PRN Reason: Wheezing Last Admin: 08/01/24 22:11 Dose: 3 ml Documented By: DEON Aspirin (Aspirin Enteric Coated 81 Mg Tablet.) 81 mg PO DAILY [facility] Last Admin: 08/05/24 08:25 Dose: 81 mg Documented By: AL Baclofen (Baclofen 10 Mg Tablet) 10 mg PO BID [facility] Last Admin: 08/05/24 08:25 Dose: 10 mg Documented By: AL Buspirone HCl (Buspirone Hcl 5 Mg Tablet) 7.5 mg PO BID [facility] Last Admin: 08/05/24 08:25 Dose: 7.5 mg Documented By: AL Calcium Carbonate (Calcium Carbonate 750 Mg Tab.Chew) 750 mg PO Q4H PRN PRN Reason: Heartburn Enoxaparin Sodium (Enoxaparin Sodium 40 Mg/0.4 Ml Syringe) 40 mg SUBCUT Q24H [facility] Last Admin: 08/05/24 08:24 Dose: 40 mg Documented By: AL Glucose (Glucose Gel 15 Gm Gel..Gram.) 15 gm PO Q15M PRN; Protocol PRN Reason: per Hypoglycemia Standing Ord. Dextrose (D10) 250 mls @ 750 mls/hr IV Q15M PRN; Protocol PRN Reason: per Hypoglycemia Standing Ord. Insulin Human Lispro (Insulin Lispro 100 Unit/Ml 3 Ml Vial) 0 unit SUBCUT QIDACHS [facility]; Protocol Last Admin: 08/05/24 07:57 Dose: Not Given Documented By: AL Non-Admin Reason: No Insulin Coverage Isosorbide Mononitrate (Isosorbide Mononitrate 30 Mg Tab.Er.24h) 30 mg PO DAILY [facility]; Protocol Last Admin: 08/05/24 08:24 Dose: 30 mg Documented By: AL Magnesium Hydroxide (Milk Of Magnesia 30 Ml Oral.Susp) 30 ml PO DAILY PRN PRN Reason: Constipation Melatonin (Melatonin 3 Mg Tablet) 6 mg PO BEDTIME PRN PRN Reason: Insomnia Methylprednisolone Sodium Succinate (Methylprednisolone Sod Succ 125 Mg/2 Ml Vial) 40 mg IVPUSH DAILY [facility] Last Admin: 08/05/24 08:25 Dose: 40 mg Documented By: AL Oxycodone HCl (Oxycodone Hcl Immed Release 5 Mg Tablet) 5 mg PO Q6H PRN PRN Reason: Pain, Moderate(Pain Scale 4-6) Prazosin HCl (Prazosin Hcl 1 Mg Capsule) 1 mg PO BEDTIME [facility]; Protocol Last Admin: 08/04/24 19:43 Dose: 1 mg Documented By: YRAN Sodium Chloride (0.9 % Sodium Chloride Flush 3 Ml Syringe) 3 ml IVFLUSH QSHIFT [facility] Last Admin: 08/05/24 08:26 Dose: 3 ml Documented By: AL Trazodone HCl (Trazodone Hcl 100 Mg Tablet) 100 mg PO BEDTIME [facility] Last Admin: 08/04/24 19:44 Dose: 100 mg Documented By: RYAN Labs 08/01/24 04:16 08/01/24 04:16 Labs: Laboratory Results - last 24 hr 08/04/24 08/04/24 08/05/24 15:19 19:27 07:44 POC Glucose 295 H 158 H 93 08/05/24 11:34 POC Glucose 172 H Assessment and Plan (1) Polymyalgia rheumatica: Status: Acute Plan Patient is a 58-year-old female with a history significant for PMR, idiopathic pulmonary fibrosis, CAD and HLD, who reported to the ED due to increasing weakness and inability to walk with associated upper extremity and lower extremity joint pain. Workup consistent with PMR flare. Guillain-[place] considered however given medical history, PMR more likely. PMR flare. slowly improving ESR and CRP significantly elevated x-rays of lower extremities negative, CT head negative venous duplex negative for DVT tick-borne panel negative continue IV Solu-Medrol, start weaning, d/c with long slow prednisone taper recommend outpatient follow up with rheumatology seen by PT rec STR Elevated blood glucose due to steroids Hba1c 6.4, prediabets ss and POC during hospital stay CAD/HLD continue aspirin, isosorbide hold statin Idiopathic pulmonary fibrosis no current medications. no respiratory symptoms or hypoxia Mental health continue buspirone, prazosin and trazodone DNI VTE prophylaxis: Lovenox PT rec STR, pt agreeable requires ongoing inpatient stay for management of bilateral lower extremity weakness pain and difficulty walking, iv steroids Quality Stroke Does the patient have a stroke diagnosis?: No VTE Prior VTE?: No VTE Risk Level:: Medical - moderate - high VTE Device Contraindication: Treatment Not Indicated VTE Drug Contraindication: N/A - Med Ordered
[2024-08-05] MEDS: Insulin Lispro 100 UNIT/ML 3 ML VIAL SUBCUT ×2 (12:28→17:00)
[2024-08-05 16:39] LABS: Glucose, Whole Blood 271 mg/dL (60-115)
[2024-08-05] MEDS: traZODone HCL 100 MG TABLET PO (19:52)
[2024-08-05] MEDS: Calcium Carbonate 750 MG TAB.CHEW PO (19:52)
[2024-08-05] MEDS: Prazosin HCL 1 MG CAPSULE PO (19:52)
[2024-08-05 20:37] LABS: Glucose, Whole Blood 134 mg/dL (60-115)
[2024-08-06] VITALS (8 sets, daily range): BP systolic 99–114; BP diastolic 59–70; PULSE 73–90; RESP 16–18; TEMP 36.2–37; O2SAT 93–99
[2024-08-06 08:14] LABS: Glucose, Whole Blood 88 mg/dL (60-115)
[2024-08-06] MEDS: Enoxaparin Sodium 40 MG/0.4 ML SYRINGE SUBCUT (08:29)
[2024-08-06] MEDS: 0.9 % Sodium Chloride Flush 3 ML SYRINGE IVFLUSH ×3 (08:29→19:36)
[2024-08-06] MEDS: methylPREDNISolone Sod Succ 125 MG/2 ML VIAL 40 MG IVPUSH (08:29)
[2024-08-06] MEDS: Aspirin Enteric Coated 81 MG TABLET.DR PO (08:30)
[2024-08-06] MEDS: Isosorbide Mononitrate 30 MG TAB.ER.24H PO (08:30)
[2024-08-06] MEDS: busPIRone HCl 5 MG TABLET 7.5 MG PO ×2 (08:30→19:36)
[2024-08-06] MEDS: Baclofen 10 MG TABLET PO ×2 (08:31→19:35)
[2024-08-06] MEDS: oxyCODONE HCl Immed Release 5 MG TABLET PO ×2 (08:38→14:22)
--- NOTE | 2024-08-06 10:59 | HO.PM.IMPN ---
Subjective Subjective Date of Service: 08/06/24 Interval History: seen and examined this morning follow up for PM flare getting better each day Review of Systems Review of Systems: Yes all other systems are reviewed and are negative Constitutional Constitutional: Denies chills and Denies fever(s) Physical Exam Vital Signs: Vital Signs: Last Vital Signs Temp 98.6 F 08/06/24 07:40 Pulse 85 08/06/24 07:40 Resp 16 08/06/24 07:40 BP 114/70 08/06/24 08:30 Pulse Ox 98 08/06/24 07:40 O2 Del Method Room Air 08/06/24 07:40 BMI result Body Mass Index 26.2 Appearing in no acute distress lung sounds are clear to auscultation heart regular rate rhythm, clear S1, S2 positive bowel sounds, abdomen is soft, nontender neuro patient is alert x3, no focal deficits Objective Data Active Medications Acetaminophen (Acetaminophen 325 Mg Tablet) 975 mg PO Q6H PRN PRN Reason: Pain, Mild 1-3,fever,headache Last Admin: 08/05/24 11:46 Dose: 975 mg Documented By: AL Albuterol/Ipratropium (Albuterol/Iprat 2.5/0.5mg 3 Ml Ampul.Neb) 3 ml INHALE Q4H PRN PRN Reason: Wheezing Last Admin: 08/01/24 22:11 Dose: 3 ml Documented By: DEON Aspirin (Aspirin Enteric Coated 81 Mg Tablet.) 81 mg PO DAILY [facility] Last Admin: 08/06/24 08:30 Dose: 81 mg Documented By: JOSE Baclofen (Baclofen 10 Mg Tablet) 10 mg PO BID [facility] Last Admin: 08/06/24 08:31 Dose: 10 mg Documented By: JOSE Buspirone HCl (Buspirone Hcl 5 Mg Tablet) 7.5 mg PO BID [facility] Last Admin: 08/06/24 08:30 Dose: 7.5 mg Documented By: JOSE Calcium Carbonate (Calcium Carbonate 750 Mg Tab.Chew) 750 mg PO Q4H PRN PRN Reason: Heartburn Last Admin: 08/05/24 19:52 Dose: 750 mg Documented By: ASHLI Enoxaparin Sodium (Enoxaparin Sodium 40 Mg/0.4 Ml Syringe) 40 mg SUBCUT Q24H [facility] Last Admin: 08/06/24 08:29 Dose: 40 mg Documented By: JOSE Glucose (Glucose Gel 15 Gm Gel..Gram.) 15 gm PO Q15M PRN; Protocol PRN Reason: per Hypoglycemia Standing Ord. Dextrose (D10) 250 mls @ 750 mls/hr IV Q15M PRN; Protocol PRN Reason: per Hypoglycemia Standing Ord. Insulin Human Lispro (Insulin Lispro 100 Unit/Ml 3 Ml Vial) 0 unit SUBCUT QIDACHS [facility]; Protocol Last Admin: 08/06/24 08:15 Dose: Not Given Documented By: JOSE Non-Admin Reason: No Insulin Coverage Isosorbide Mononitrate (Isosorbide Mononitrate 30 Mg Tab.Er.24h) 30 mg PO DAILY [facility]; Protocol Last Admin: 08/06/24 08:30 Dose: 30 mg Documented By: JOSE Magnesium Hydroxide (Milk Of Magnesia 30 Ml Oral.Susp) 30 ml PO DAILY PRN PRN Reason: Constipation Melatonin (Melatonin 3 Mg Tablet) 6 mg PO BEDTIME PRN PRN Reason: Insomnia Methylprednisolone Sodium Succinate (Methylprednisolone Sod Succ 125 Mg/2 Ml Vial) 40 mg IVPUSH DAILY [facility] Last Admin: 08/06/24 08:29 Dose: 40 mg Documented By: JOSE Oxycodone HCl (Oxycodone Hcl Immed Release 5 Mg Tablet) 5 mg PO Q6H PRN PRN Reason: Pain, Moderate(Pain Scale 4-6) Last Admin: 08/06/24 08:38 Dose: 5 mg Documented By: JOSE Prazosin HCl (Prazosin Hcl 1 Mg Capsule) 1 mg PO BEDTIME [facility]; Protocol Last Admin: 08/05/24 19:52 Dose: 1 mg Documented By: ASHLI Sodium Chloride (0.9 % Sodium Chloride Flush 3 Ml Syringe) [facility] Last Admin: 08/06/24 08:29 Dose: 3 ml Documented By: JOSE Trazodone HCl (Trazodone Hcl 100 Mg Tablet) 100 mg PO BEDTIME [facility] Last Admin: 08/05/24 19:52 Dose: 100 mg Documented By: ASHLI Labs 08/01/24 04:16 08/01/24 04:16 Labs: Laboratory Results - last 24 hr 08/05/24 08/05/24 08/05/24 11:34 16:34 20:33 POC Glucose 172 H 271 H 134 H 08/06/24 07:46 POC Glucose 88 Assessment and Plan (1) Polymyalgia rheumatica: Status: Acute Plan 58-year-old female with a history significant for PMR, idiopathic pulmonary fibrosis, CAD and HLD, who reported to the ED due to increasing weakness and inability to walk with associated upper extremity and lower extremity joint pain. Workup consistent with PMR flare. Guillain-[place] considered however given medical history, PMR more likely. PMR flare. slowly improving ESR and CRP significantly elevated x-rays of lower extremities negative, CT head negative venous duplex negative for DVT tick-borne panel negative continue IV Solu-Medrol, start weaning, d/c with long slow prednisone taper recommend outpatient follow up with rheumatology seen by PT rec STR Elevated blood glucose due to steroids Hba1c 6.4, prediabets ss and POC during hospital stay CAD/HLD continue aspirin, isosorbide hold statin Idiopathic pulmonary fibrosis no current medications. no respiratory symptoms or hypoxia Mental health continue buspirone, prazosin and trazodone DNI VTE prophylaxis: Lovenox PT rec STR, pt agreeable requires ongoing inpatient stay for management of bilateral lower extremity weakness pain and difficulty walking, iv steroids Quality Stroke Does the patient have a stroke diagnosis?: No VTE Prior VTE?: No VTE Risk Level:: Medical - moderate - high VTE Device Contraindication: Treatment Not Indicated VTE Drug Contraindication: N/A - Med Ordered
[2024-08-06 11:40] LABS: Glucose, Whole Blood 216 mg/dL (60-115)
[2024-08-06] MEDS: Insulin Lispro 100 UNIT/ML 3 ML VIAL SUBCUT ×3 (12:48→22:52)
--- NOTE | 2024-08-06 15:16 | MHC.CM.PN ---
PER MD ROUNDS, PT NOT YET READY TO DC PT PLANS TO DC TO HER [facility] VIA PRIVATE TRANSPORT CM FOLLOWING FOR CHANGING DC NEEDS
[2024-08-06 16:13] LABS: Glucose, Whole Blood 223 mg/dL (60-115)
[2024-08-06] MEDS: Prazosin HCL 1 MG CAPSULE PO (19:35)
[2024-08-06] MEDS: traZODone HCL 100 MG TABLET PO (19:36)
[2024-08-06 20:25] LABS: Glucose, Whole Blood 192 mg/dL (60-115)
[2024-08-07 03:17] VITALS: BP 102/63; PULSE 78; RESP 18; TEMP 36.9; O2SAT 97
[2024-08-07 07:26] VITALS: BP 116/67; PULSE 85; RESP 16; TEMP 36.8; O2SAT 98
[2024-08-07 07:49] LABS: Glucose, Whole Blood 103 mg/dL (60-115)
[2024-08-07 08:29] VITALS: BP 116/67
[2024-08-07] MEDS: Acetaminophen 325 MG TABLET 975 MG PO (08:29)
[2024-08-07] MEDS: Aspirin Enteric Coated 81 MG TABLET.DR PO (08:29)
[2024-08-07] MEDS: Isosorbide Mononitrate 30 MG TAB.ER.24H PO (08:29)
[2024-08-07] MEDS: Baclofen 10 MG TABLET PO (08:30)
[2024-08-07] MEDS: busPIRone HCl 5 MG TABLET 7.5 MG PO (08:30)
[2024-08-07] MEDS: Enoxaparin Sodium 40 MG/0.4 ML SYRINGE SUBCUT (08:30)
[2024-08-07] MEDS: methylPREDNISolone Sod Succ 125 MG/2 ML VIAL 40 MG IVPUSH (08:31)
[2024-08-07] MEDS: 0.9 % Sodium Chloride Flush 3 ML SYRINGE IVFLUSH (08:32)
[2024-08-07 11:05] VITALS: BP 104/50; PULSE 90; RESP 16; TEMP 36.4; O2SAT 97
--- NOTE | 2024-08-07 11:12 | P.F2F_ITS ---
Service Date Service Date: 08/07/24 Encounter Date of encounter: 08/07/24 Reasons for Services Signs and symptoms assessed: Polymyalgia rheumatica exacerbation Reason for senior living: CV/CP assess and/or care Reason for physical therapy: home safety and mobility and therapeutic exercises Homebound: Leaving the home is medically contraindicated at this time without the asist of a device and/or another person due th the listed conditions above and below. Reason homebound: leg weakness and weakness related to hospital stay Certification: Based on the above findings, I certify that this patient is confined to the home and needs intermittent senior living care, physical therapy and/or speech therapy, or continues to need occupational therapy. The patient is under my care, and I have initiated the establishment of the plan of care. The patient will be followed by a physician who will periodically review the plan of care. Time Spent With Patient Time: Total time managing care of this patient today ____ minutes.
--- NOTE | 2024-08-07 11:13 | P.DS_ITS ---
DS: Providers Provider Date of Service: 08/07/24 Date of admission: 08/02/24 16:20 Date of discharge: 08/07/24 Primary care physician: Lex Rich MD DS: Diagnosis Discharge Diagnosis (1) Polymyalgia rheumatica: Status: Acute DS: Summary Hospital Course Hospital Course: History and physical as per admitting provider. Patient is a 58-year-old female with a history significant for PMR, idiopathic pulmonary fibrosis, CAD and HLD, who reported to the ED due to increasing weakness and inability to walk with associated upper extremity and lower extremity joint pain. She rates the pain at 10/10 very sensitive to touch and extremely painful with movement or pressure. No erythema or warmth of the joints. no LE edema. She reports the pain is specifically in her shoulders, elbows, hips and knees. The pain is consistent throughout, no specific joint with increased pain. She has been treated for PMR outpatient reports that her prednisone was recently stopped and her weakness has been progressively worsening for the past week, unable to walk for the past 2-3 days. She reports she did recently travel to [place] and did recently have a viral illness at least 1 month ago. No recent immunizations. Mild numbness and tingling in the hands in feet. No respiratory symptoms including shortness of breath or dyspnea. With a 8-year-old woman treated for polymyalgia rheumatica exacerbation with elevated ESR and CRP. Head CT negative, venous Doppler ultrasound negative for DVT, tick-borne panel negative. Treated with IV Solu-Medrol. Plan for discharge with slow prednisone taper for remaining 3-1/2 weeks. She was noted to have elevated blood sugars, hemoglobin A1c 6.4, can manage with diet at this time, no need to start new medications. She was worked with physical therapy. She has been out of bed. Plan is for discharge home with family with physical therapy at home. CAD/hyperlipidemia. Continue aspirin, statin and isosorbide History of idiopathic pulmonary fibrosis. Not on current medications, no res piratory difficulties during admission Mental health. Continue buspirone, prazosin and trazodone Time Attestation Discharge Coordination Time (in mins): 42 Quality: Safe Use of Opioids Does Pt have an Active Cancer Diagnosis on the Problem List?: No Quality: Stroke Does the patient have a stroke diagnosis?: No Physical Exam Vital Signs: Vital Signs: Last Vital Signs Temp 97.5 F 08/07/24 11:05 Pulse 90 08/07/24 11:05 Resp 16 08/07/24 11:05 BP 116/67 08/07/24 08:29 Pulse Ox 97 08/07/24 11:05 O2 Del Method Room Air 08/07/24 11:05 BMI result Body Mass Index 26.2 Appearing in no acute distress head is normocephalic atraumatic eyes pupils are PERRLA sclera is anicteric mouth throat mucous membranes are intact and moist neck is supple no lymphadenopathy, no JVD noted lung sounds are clear to auscultation heart regular rate rhythm, clear S1, S2 positive bowel sounds, abdomen is soft, nontender neuro patient is alert x3, no focal deficits DS: Data Data Completed and Pending Labs on day of discharge: Laboratory Results - last 24 hr 08/06/24 08/06/24 08/06/24 11:34 16:08 20:17 POC Glucose 216 H 223 H 192 H 08/07/24 07:30 POC Glucose 103 Discharge Plan Discharge Anticipated Discharge Date/Time: 08/07/24 11:06 Patient Disposition: Home Health Service Discharge Diagnosis: Polymyalgia rheumatica exacerbation Referrals: Lex Rich MD [Primary Care Provider] - 1 Week Discharge Medications: New prednisone 10 mg tablet See Taper PO DIRECTED Qty: 58 0RF Taper: Prednisone 40 mg daily for 4 Days and 0 Hour 30 mg daily for 7 Days and 0 Hour 20 mg daily for 7 Days and 0 Hour 10 mg daily for 7 Days and 0 Hour Rx Instructions: see taper instructions Continued atorvastatin 40 mg tablet 40 mg PO DAILY prazosin 1 mg capsule 1 mg PO BEDTIME isosorbide mononitrate 30 mg tablet extended release 24 hr 30 mg PO DAILY aspirin 81 mg tablet,delayed release (DR/EC) 81 mg PO DAILY trazodone 100 mg tablet 100 mg PO BEDTIME baclofen 10 mg tablet 10 mg PO BID buspirone 7.5 mg tablet 7.5 mg PO BID Ofev 150 mg capsule 150 mg PO BID Discharge Orders: Discharge Order (Routine); Ordered 08/07/24 Ordered By: Lady Hilliard Diet: Advance to usual diet Activity on Discharge: As tolerated Stand Alone Forms: Patient Portal Discharge page Print Language: Amharic Care Plan Goals: Consider following up with flight attendant/inflight supervisor outpatient Complete prednisone taper Health Concerns: Polymyalgia rheumatica exacerbation Plan of Treatment: Follow-up with primary care provider as needed Take all medications as prescribed Assessment: See discharge summary
[2024-08-07 11:16] LABS: Glucose, Whole Blood 231 mg/dL (60-115)
--- NOTE | 2024-08-07 12:06 | MHC.CM.PN ---
pt dcd home going to [facility] which is on first floor pt will stay with niece and pts adeel
[2024-08-07] MEDS: Insulin Lispro 100 UNIT/ML 3 ML VIAL SUBCUT (12:10)
== END 2024-08-07 14:06 | disposition home health service (06) | DRG 547 ==
LOC: HO.ED 20:04 → HO.EDOVER 20:32 → HO.S3 08-01 09:26
PROVIDERS: Physician Assistant; Physician Assistant Medical; Admitting Provider Internal Medicine; Emergency Provider Emergency Medicine Emergency Medical Services; PCP Family Medicine; Visit Provider Nurse Practitioner Acute Care
DX: M35.3 Polymyalgia rheumatica (principal); I25.10 Atherosclerotic heart disease of native coronary artery without angina pectoris; E78.5 Hyperlipidemia, unspecified; J84.112 Idiopathic pulmonary fibrosis; Z20.822 Contact with and (suspected) exposure to COVID-19; Z79.82 Long term (current) use of aspirin; Z79.899 Other long term (current) drug therapy
CPT/HCPCS: 0241U; 36415; 70450; 73521; 73590; 80048; 80053; 81003; 82550; 82947; 83036; 83880; 85025; 85652; 86140; 87468; 87469; 87478; 87484; 87798; 93970; 94640; 97110; 97116; 97162; 97165; 97530; 99285; J1650; J2270; J2919

== ENCOUNTER → 2024-07-31 11:06 | Outpatient (BNV) | payer OTHER, SELFPAY | PROVIDERS: Visit Provider Radiology Diagnostic Radiology | DX: R26.2 Difficulty in walking, not elsewhere classified (principal); M79.606 Pain in leg, unspecified | CPT/HCPCS: 70450; 73521; 73590 ==

== ENCOUNTER → 2024-07-31 20:25 | Outpatient (BNV) | payer OTHER, SELFPAY | PROVIDERS: Admitting Provider Internal Medicine; Emergency Provider Emergency Medicine Emergency Medical Services; Visit Provider Physician Assistant | DX: M35.3 Polymyalgia rheumatica (principal) | CPT/HCPCS: 99222; 99232 ==

== ENCOUNTER 2024-09-23 15:21 | Inpatient (IN) | payer OTHER, SELFPAY ==
--- NOTE | ~2024-09-23 | XR_ITS ---
CLINICAL HISTORY: L hip pain s p fall 3 view, pelvis and left hip Comparison: None Findings: The bones are intact. No significant arthritic change. The soft tissues are unremarkable. IMPRESSION: No acute findings. This document has been electronically signed by: Megan Villela MD on 09/23/2024 19:05:20
[2024-09-23 15:33] VITALS: BP 118/94; BP 120/72; PULSE 100; PULSE 99; RESP 20; TEMP 36.3; O2SAT 100; O2SAT 99; BMI 23.8
--- OUTSIDE RECORDS SUMMARY | 2024-09-23 15:56 | XMS_ITS | Data Portability ---
Author Organization [employer] [facility] [employer] Address [address] [place] [phone] Care Team Providers Care Cook Pressure Name Role Phone HIM [facility] OTHER Assessment Encounter Date Assessment Date Assessment LastModified by Organization Details LastModified Time 12/13/2023 12/13/2023 I provided real -time medical direction via phone for this encounter and was available for additional phone-based assistance as needed. I have reviewed and agree with the Assessment and Plan as documented by the Personnel Coordinator. Patient given the opportunity to ask questions. Our service contacted for an assessment of: Chronic pain As per above, patient with hx of chronic pain. No new or worsening red S&S. No new bowel/bladder symptoms. No new gait abnl. No new neurological signs, symptoms or deficits. Per digital design engineer on the scene, VSS, non-toxic. Neuro grossly [...] in the field was performed by my digital design engineer colleague, as noted above, I provided real-time [...] /min 120 mm[Hg] 75 mm[Hg] Not Available [facility] [employer] 4 13:40:20 Date Recorded Heart rate Body temperature Respiratory rate Oxygen saturation Oxygen saturation in Arterial blood by Pulse oximetry Systolic blood pressure Diastolic blood pressure Provider Name and Address Organization Details Last Updated DateTime 4 82 /min 98.7 [degF] 16 /min 98 % 98 % 120 mm[Hg] 76 mm[Hg] Not Available [facility] 4 19:15:34 Social History None recorded. Functional Status None recorded. Mental Status None recorded. Family History Nothing Reported. Medical History No medical history recorded. Gynecological HistoryNo gynecological history recorded. Obstetrics History GPAL:G 0 P 0 0 0 0 Past Encounters Encounter ID Performer Location Encounter Start Date Encounter Closed Date Diagnosis/Indication Diagnosis SNOMED-CT Code Diagnosis ICD10 Code Diagnosis Note [id number] Mariella Castro MD Main - [facility] [address] [place] [phone] 12/13/2023 13:40:10 12/13/2023 17:51:43 Chronic pain 70221297 G89.29 [id number] Hafsa Angel MD Main - [facility] [address] [place] [phone] 12/14/2023 19:15:30 12/15/2023 11:44:34 Erythematous rash 523127229 R21 Health Concerns Section Related Observation LastModified by Organization Detai ls LastModified Time None Recorded Concern Status LastModified by Organization Details LastModified Time None Recorded Advance Directives Directive None Recorded Payers Encounter Date Sequence Insurance Name Policy Number Policy Haywood Covered Member ID Haywood Member ID Guarantor Name 12/13/2023 1 [facility] - DOS ON OR AFTER 2022 - DUAL ELIGIBLE - [employer]CI OPTIONS AND ONE CARE (MEDICARE REPLACEMENT/ADV ANTAGE - HMO) Patricia Alexandre [id number] Patricia Alexandre 12/14/2023 1 [facility] - DOS ON OR AFTER 2022 - DUAL ELIGIBLE - [employer]CI OPTIONS AND ONE CARE (MEDICARE REPLACEMENT/ADV ANTAGE - HMO) Patricia Alexandre [id number] Patricia Alexandre Notes Date Note Type Note Provider [...] ................. ................. ................. ................. ................. ................. ..... Personnel Coordinator Note From Elena Chahal: 58y F c/o [...] ..... Disposition: Cole Mariella Castro MD [address] [facility],[address], [place], [phone], [employer] 12/13/2023 13:48:03 12/14/2023 text/html CRC Nurse Triage Notes (Danelle Cotton): Reason For Request: Follow up from surgery /muscular spasms Chief Complaints: Pain PMH: Other Allergies: Unknown Comments: Chain Person verified the member's name//address and phone number. Member is a 58 yr old female, armenian speaking PMH Son calling for member, had [...] reported s/s and [facility] [place]: spasms of right arm are chronic. [...] ................. ................. ................. ................. ................. ................. ........ Personnel Coordinator Note From Caden Bennett: Dispatched to the call address for the follow up. [facility] and pain. [...] ................. ..... Disposition: Cole Angel MD [address] [facility],[address], [place], [address], [facility] 12/14/2023 21:13:02 OBGyn Episode No OBEpisode recorded.
--- OUTSIDE RECORDS SUMMARY | 2024-09-23 15:56 | XMS_ITS | Encounter Summary ---
Author Organization [facility] Address [address] [place] [address] Care Team Providers Care Pick Pulling Machine Operator Name Role Phone Lex Rich MD Primary Care Pr ovider Reason for Visit * Reason Onset Date Comments Medication Problem 08/24/2024 Encounter Details Date Type Department Care Team ([facility] st Contact Info) Description 08/24/2024 [facility] [place] [address] [facility] [address] [place] [phone] Aysha Hernandez MD 175 [facility] [address] [place] [address] Medication Problem Social History Tobacco Use Types Packs/Day Years Used Date Smoking Tobacco: Never Smokeless Tobacco: Never Alcohol Use Standard Drinks/Week Comments Not Currently 0 (1 standard drink = 0.6 oz pur e alcohol) rarely Comments Unknown Sex and Gender Information Value Date Recorded Sex Assigned at Female 08/30/2024 4:13 PM EST Legal Sex Female 8:19 PM EST Gender Identity Female 08/30/2024 4:13 PM EST Sexual Orientation Straight 08/30/2024 4: 13 PM EST documented as of this encounter Ordered Prescriptions Prescription Sig Dispense Quantity Refills Last Filled Start Date End Date nintedanib (Ofev) 150 mg capsule Take 1 capsule (150 mg total) by mouth every 12 (twelve) hours. 60 capsule 11 08/30/2024 documented in this encounter Progress Notes * Aysha Hernandez MD - 08/30/2024 5:40 PM EST I send it to [facility]- please make sure that is the proper place * James Rodríguez [place] - 08/27/2024 11:44 AM EST Spoke to pt. Pt needs a new rx for ofev to be sent to [facility]. Pt still has PA available justneed a new rx to be sent. thanks * Ubaldo Stoner - 08/24/2024 2:08 PM EST Patient Vel called regards to her medication, Documentation is needed for OFFEV to be submitted. Please call Vel [phone] documented in this encounter Plan of Treatment Upcoming Encounters Date Type Department Care Team (Late st Contact Info) Description 10/23/2024 11:00 AM EDT Office Visit [place]gy - [place] [address] [phone] Aysha Hernandez MD 175 [facility] [place] [address] [place] [address] 11/22/2024 12:45 PM EDT Office Visit Adult Medicine [facility] - [address] [phone] Lex Rich MD [address] [place] [address] 03/13/2025 11:10 AM EDT Appointment Radiology Department - [address] [phone] documented as of this encounter Visit Diagnoses Diagnosis ILD (interstitial lung disease) ([facility])- Primary Postinflammatory pulmonary fibrosis Encounter for screening mammogram for breast cancer documented in this encounter Discontinued Medications Medication Sig Discontinue Reason Start Date End Da te nintedanib (Ofev) 150 mg capsule Take 150 mg by mouth 2 times daily. Reorder 01/09/2024 08/30/2024 documented as of this encounter Care Teams Pick Pulling Machine Operator Relationship Specialty Start Date End Date Lex Rich MD [address] [place] [phone] PCP - General Internal Medicine 05/24/24 documented as of this encounter
--- OUTSIDE RECORDS SUMMARY | 2024-09-23 15:56 | XMS_ITS | Encounter Summary ---
Author [facility] Address [address] [place] [address] Care Team Providers Care Entry Level Buyer Name Role Phone Lex Rich MD Primary Care Pr ovider Reason for Visit * Reason Onset Date Comments Fitting for DME 08/23/2024 Encounter Details Date Type Department Care Team ([facility] Contact Info) Description 08/23/2024 Telephone Adult Medicine [address] [phone] Xiao Cook LPN Fitting for DME Social History Tobacco Use Types Packs/Day Years [...] PM EST documented as of this encounter Progress Notes * Xiao Cook LPN - 08/24/2024 9:20 AM EST Rx signed and faxed to [employer] @ [phone] to process for CCA Rx and notes also uploaded into portal * Xiao Cook LPN - 08/23/2024 1:02 PM EST Rx to Christianne to sign * CHANDNI Bishpo - 08/23/2024 12:37 PM EST We can try the lowest compression strength for now and knee length. Thank you * Xiao Cook LPN - 08/23/2024 10:47 AM EST Received request from Christianne Bailey for quad cane,walker with seat and compression stockings Message to Christianne For the compression stockings what compression strength and what length of the stockings? Thank you Xiao APPLE documented in this encounter Plan of Treatment Upcoming Encounters Date Type Department Care Team (Late st Contact Info) Description 10/23/2024 11:00 AM EDT Office Visit Pulmonolgy - [place] [address] [phone] Aysha Hernandez MD [address] [address] 11/22/2024 12:45 PM EDT Office Visit Adult Medicine [facility] - [address] [phone] Lex Rich MD [address] [place] [address] 03/13/2025 11:10 AM EDT Appointment Radiology Department - [address] [phone] documented as of this encounter Visit Diagnoses Diagnosis Venous insufficiency- Primary Unspecified venous (peripheral) insufficiency Polymyalgia rheumatica ([facility]/HCC) Polymyalgia rheumatica PMR (polymyalgia rheumatica) ([facility]/HCC) Polymyalgia rheumatica Weakness Other malaise and fatigue Mobility impaired Other ill-defined conditions Left hip pain Pain in joint, pelvic region and thigh Leg swelling Swelling of limb Encounter for screening mammogram for breast cancer documented in this encounter Orders General Supply Count Last Ordered Date First Or dered Date CANE, QUAD OR THREE PRONG 1 08/23/2024 COMPRESSION STOCKINGS 1 08/23/2024 WALKER 1 08/23/2024 documented in this encounter Care Teams Entry Level Buyer Relationship Specialty Start Date End Date Lex Rich MD [address] [place] [id number] PCP - General Internal Medicine 05/24/24 documented as of this encounter
--- OUTSIDE RECORDS SUMMARY | 2024-09-23 15:56 | XMS_ITS | Encounter Summary ---
Author Organization [facility] Address [address] [place] [address] Care Team Providers Care Rail Grinder Name Role Phone Lex Rich MD Primary Care Pr ovider Reason for Referral * Imaging (Routine) - Authorized Specialty Diagnoses / Procedures Referred By Contac t Referred To Contact Radiology Diagnoses ILD (interstitial lung disease) (CMS/HCC) Procedures CT Chest wo Contrast Aysha Hernandez MD [address] [address] Phone: tel: fax: [facility] [address] [place] [address] Phone: tel: Referral ID Status Reason Start Date Expiration Date V isits Requested Visits Authorized [id number] Authorized 08/23/2024 11/18/2024 1 1 Reason for Visit * Imaging (Routine) - Authorized Specialty Diagnoses / Procedures Referred By Contac t Referred To Contact Radiology Diagnoses ILD (interstitial lung disease) ([facility]/HCC) Procedures CT Chest wo Contrast Aysha Hernandez MD [address] [address] Phone: tel: fax: [facility] CT [address] [place] [address] Phone: tel: Referral ID Status Reason Start Date Expiration Date V isits Requested Visits Authorized [id number] Authorized 08/23/2024 11/18/2024 1 1 Encounter Details Date Type Department Care Team (Latest Contact Info) Description 09/20/2024 12:50 PM EST - 09/20/2024 11:59 PM EST Hospital Encounter [facility] [address] [place] [address] ILD (interstitial lung disease) ([facility]) Discharge Disposition: Home or Self Care Social History Tobacco Use Types Packs/Day Years [...] PM EST documented as of this encounter Medications at Time of Discharge albuterol HFA (PROAIR HFA ; PROVENTIL HFA ; VENTOLIN HFA) 90 mcg/actuation inhaler Inhale 2 Puffs into the lungs every 6 hours as needed for Cough, Wheezing or Shortness of Breath for up to 30 days 05/04/2023 aspirin 81 mg chewable tablet Chew 1 tablet (81 mg total) 1 (one) time each day. atorvastatin (LIPITOR) 40 mg tablet Take 1 tablet (40 mg total) by mouth at bedtime. baclofen (LIORESAL) 10 mg tabletIndications:Po lymyalgia rheumatica ([facility]),Myalgia,Le ft hip pain Take 1 tablet (10 mg total) by mouth 3 (three) times a day. 90 each 2 09/11/2024 busPIRone (BUSPAR) 7.5 mg tablet Take 1 tablet (7.5 mg total) by mouth 2 (two) times a day. 07/05/2024 isosorbide mononitrate (IMDUR) 30 mg 24 hr tablet Take 1 tablet (30 mg total) by mouth 1 (one) time each day. Do not crush or chew. nintedanib (Ofev) 150 mg capsule Take 1 capsule (150 mg total) by mouth every 12 (twelve) hours. 60 capsule 11 08/30/2024 ondansetron ODT (ZOFRAN-ODT) 4 mg disintegrating tablet Dissolve 1 tablet (4 mg total) on top of the tongue every 6 (six) hours if needed for nausea or vomiting. 10 tablet 05/27/2024 prazosin (MINIPRESS) 1 mg capsule Take 1 capsule (1 mg total) by mouth at bedtime. 07/13/2024 traZODone (DESYREL) 100 mg tablet Take 1 tablet (100 mg total) by mouth at bedtime. 07/05/2024 documented as of this encounter Discharge Disposition Disposition Code Departure Means Destination Home or Self Care documented in this encounter Plan of Treatment Upcoming Encounters Date Type Department Care Team ([facility] st Contact Info) Description 10/23/2024 11:00 AM EDT Office Visit Pulmonolgy - [place] [address] [phone] Aysha Hernandez MD [address] [address] 11/22/2024 12:45 PM EDT Office Visit Adult Medicine [address] [phone] Lex Rich MD [address] [place] [address] 03/13/2025 11:10 AM EDT Appointment Radiology Department - [address] [phone] Pending Results Name Type Priority Associated Diagnoses Date /Time CT Chest wo Contrast Imaging Routine ILD (interstitial lung disease) ([facility]) 09/20/2024 1:11 PM EST Scheduled Orders Name Type Priority Associated Diagnoses Orde r Schedule CT Chest wo Contrast Imaging Routine ILD (interstitial lung disease) ([facility]) Once for 1 Occurrences starting 09/20/2024 until 09/20/2024 documented as of this encounter Visit Diagnoses Diagnosis ILD (interstitial lung disease) (CMS/HCC) Postinflammatory pulmonary fibrosis Encounter for screening mammogram for breast cancer documented in this encounter Care Teams Rail Grinder Relationship Specialty Start Date End Date Lex Rich MD [address] [place] [address] PCP - General Internal Medicine 05/24/24 documented as of this encounter
--- OUTSIDE RECORDS SUMMARY | 2024-09-23 15:56 | XMS_ITS | Clinical Summary ---
Author Organization [facility] [place] Address [address] [address] Phone Care Team Providers Care Fire Behavior Analyst Name Role Phone Lex Rich MD Primary Care Pr ovider Allergies No known active allergies Medications albuterol HFA (PROAIR HFA ; PROVENTIL HFA ; VENTOLIN HFA) 90 mcg/actuation inhaler Inhale 2 Puffs into the lungs every 6 hours as needed for Cough, Wheezing or Shortness of Breath for up to 30 days 05/04/20 23 Active ondansetron ODT (ZOFRAN-ODT) 4 mg disintegrating tablet Dissolve 1 tablet (4 mg total) on top of the tongue every 6 (six) hours if needed for nausea or vomiting. 10 tablet 05/27/20 24 Active Additional Information Patient not taking.Reported on 08/22/2024 prazosin (MINIPRESS) 1 mg capsule Take 1 capsule (1 mg total) by mouth at bedtime. 07/13/20 24 Active traZODone (DESYREL) 100 mg tablet Take 1 tablet (100 mg total) by mouth at bedtime. 07/05/20 24 Active busPIRone (BUSPAR) 7.5 mg tablet Take 1 tablet (7.5 mg total) by mouth 2 (two) times a day. 07/05/20 24 Active atorvastatin (LIPITOR) 40 mg tablet Take 1 tablet (40 mg total) by mouth at bedtime. Active aspirin 81 mg chewable tablet Chew 1 tablet (81 mg total) 1 (one) time each day. Active isosorbide mononitrate (IMDUR) 30 mg 24 hr tablet Take 1 tablet (30 mg total) by mouth 1 (one) time each day. Do not crush or chew. Active nintedanib (Ofev) 150 mg capsule Take 1 capsule (150 mg total) by mouth every 12 (twelve) hours. 60 capsule 11 08/30/19 25 026 Active baclofen (LIORESAL) 10 mg tabletIndications: Polymyalgia rheumatica (CMS/HCC),Myalgia, Left hip pain Take 1 tablet (10 mg total) by mouth 3 (three) times a day. 90 each 2 09/11/19 25 Active nintedanib (Ofev) 150 mg capsule Take 150 mg by mouth 2 times daily. 01/09/20 24 025 Discontin ued(Reord er) baclofen (LIORESAL) 10 mg tabletIndications: Polymyalgia rheumatica (CMS/HCC),Myalgia, Left hip pain Take 1 tablet (10 mg total) by mouth 2 (two) times a day. 60 each 1 08/07/19 25 025 Discontin ued(Reord er) Active Problems Problem Noted Date Diagnosed Date Prediabetes 07/27/2024 Assessment & Plan (07/27/2024 6:05 PM EST): Last A1c was elevated to 6.3 Prednisone use may have been contributory Will monitor Lifestyle counselling provided Subclinical hyperthyroidism 07/27/2024 Assessment & Plan (07/27/2024 6:05 PM EST): TSH in Dec was 0.3 with normal free T3/T4 consistent with subclinical hypothyroidism. Repeat TSH done today has returned normal. Will remove endocrinology referral Orders: Thyroid stimulating hormone with reflex to free t4 and free t3; Future Thyroid peroxidase antibody; Future Thyroglobulin and thyroglobulin antibody panel; Future Primary osteoarthritis of right hip 07/27/2024 Abnormal stress test 05/01/2024 Assessment & Plan (05/28/2024 2:55 PM EST): Subsequent left heart catheterization showed normal coronary arteries and therefore the stress test was a false positive. She will discontinue aspirin and isosorbide mononitrate. She also has been having significant myalgias and feels as though these have worsened since being on atorvastatin. I recommend she stop the atorvastatin for 2 weeks to see if her symptoms improve, she will follow-up with her primary care provider regarding next steps. Dyspnea 05/01/2024 Assessment & Plan (05/28/2024 2:55 PM EST): Patient has a history of interstitial lung disease and continues to follow with pulmonology. Recent left heart catheterization showed normal coronary arteries. She will continue with her plans for upcoming echocardiogram to evaluate her heart function structurally and assess her valves. I will notify her of the results as soon as they become available. Orders: ECG 12 lead Chronic midline low back pain without sciatica 0 12/26/2023 ILD (interstitial lung disease) 08/04/2023 Overview (05/01/2024): Last Assessment & Plan: Ms. Alexandre is a 58 yr. 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 This operation was performed on 12/06/2023. Refilling oxycodone 5 mg tablets to be used 1 tablet every 4 hours as needed for her incisional pain total supply #40. I prescribed this medication after checking [employer] and seeing no red flags. Encouraged her to continue to use Tylenol 1000 mg every 6 hours for incisional pain. Directed to follow-up with her ticket sorter Dr. Hernandez in regards to her pulmonary fibrosis. Will follow-up with the thoracic surgical department moving forward on a as needed basis and to contact the thoracic surgery department should she have any further questions or concerns in the future. Hyperlipidemia 06/27/2023 Insomnia 06/24/2023 Overweight (BMI 25.0-29.9) 06/24/2023 Anxiety and depression 02/17/2023 Osteopenia 02/17/2023 Resolved Problems Problem Noted Date Diagnosed Date Resolved Date CAD (coronary artery disease) 05/01/2024 05/28/2024 Encounters Date Type Department Care Team Description 09/20/2024 12:50 PM EST - 09/20/2024 11:59 PM EST Hospital Encounter [facility] CT Scan [address] [place] [phone] ILD (interstitial lung disease) ([facility]) Discharge Disposition: Home or Self Care 09/19/2024 Billing Patient Not Present Adult Medicine [address] [phone] Emilia Wyman MA [facility] [address] [phone] Aysha Hernandez MD Medication Problem 08/23/2024 11:00 AM EST Office Visit [address] [phone] Aysha Hernandez MD ILD (interstitial lung disease) ([facility]) (Primary Dx); Rheumatoid factor positive 08/23/2024 Telephone Adult Medicine [address] [phone] Xiao Cook LPN Fitting for DME 08/22/2024 11:00 AM EST Office Visit Adult [address] [phone] Christianne Vidales PA Hospital discharge follow-up (Primary Dx); PMR (polymyalgia rheumatica) ([facility]); Leg swelling; Venous insufficiency 08/07/2024 Telephone Adult Medicine [address] [phone] Alex Hernández LPN 08/03/2024 Telephone Adult Medicine [address] [phone] Lex Rich MD VNA ([place] ) 08/03/[address] [phone] Aysha Hernandez MD 08/03/2024 Telephone Adult Medicine [place] [address] [phone] Alex Hernández LPN vna 07/27/2024 2:13 PM EST - 07/27/2024 11:59 PM EST Hospital Encounter [address] [phone] Left hip pain Discharge Disposition: Home or Self Care 07/27/2024 1:00 PM EST Office Visit Adult Medicine [address] [phone] Lex Rich MD Polymyalgia rheumatica (CMS/HCC) (Primary Dx); Myalgia; Prediabetes; Positive MADY (antinuclear antibody); Subclinical hyperthyroidism; Elevated rheumatoid factor; Left hip pain; Elevated erythrocyte sedimentation rate; Elevated C-reactive protein (CRP) 07/17/2024 Telephone Adult Medicine [address] [phone] Lex Rich MD vna 07/12/2024 8:45 AM EST Office Visit Adult Medicine [address] [phone] Lex Rich MD Polymyalgia rheumatica (CMS/HCC) (Primary Dx); Myalgia; Hyponatremia; Encounter for hepatitis C screening test for low risk patient 07/06/2024 Telephone Adult Medicine [address] [phone] Lex Rich MD Leg Pain from Last 3 Months Immunizations Name Administration Dates Next Due Influenza Quadravalent, MDCK , 0.5ml, preservative free (Flucelvax) 6mo and older 04/19/2023 Tdap Tetanus diptheria acell ular pertussis (Boostrix; Adacel) 7yo and older 04/19/2023 Surgical History Surgery Date Site/Laterality Comments VIRTUAL COLONSCOPY (DIAG.) 10/18/2023 repeat in 10 years HYSTERECTOMY NECK SURGERY ANKLE SURGERY CARDIAC CATHETERIZATION DONE ON 04/24/2024 AT [facility] [facility] W KM INDICATIONS CHEST PAIN Medical History Medical History Date Comments Depression Family History Relation Name Status Comments Father Mother Alive Social History Tobacco Use Types Packs/Day Years Used Date Smoking Tobacco: Never Smokeless Tobacco: Never Tobacco Cessation:Counseling Given: Not Answered Alcohol Use Standard Drinks/Week Comments Not Currently 0 (1 standard drink = 0.6 oz pur e alcohol) rarely Comments Unknown Sex and Gender Information Value Date Recorded Sex Assigned at Female 08/30/2024 4:13 PM EST Legal Sex Female 8:19 PM EST Gender Identity Female 08/30/2024 4:13 PM EST Sexual Orientation Straight 08/30/2024 4: 13 PM EST Obstetrics History Last Filed Vital Signs Vital Sign Reading Time Taken Comments Blood Pressure 110/60 08/23/2024 10:42 AM EST Pulse 108 08/23/2024 10:42 AM EST Temperature 36.2 ??C (97.1 ??F) 08/23/2024 10:[address] Respiratory Rate 16 08/23/2024 10:42 AM EST Oxygen Saturation 97% 08/23/2024 10:42 AM EST Inhaled Oxygen Concentration - - Weight 61.7 kg (136 lb) 08/23/2024 10:42 AM EST Height 152.4 cm (5') 08/23/2024 10:42 AM EST Body Mass Index 26.56 08/23/2024 10:42 AM EST Plan of Treatment Upcoming Encounters Date Type Department Care Team (Late st Contact Info) Description 10/23/2024 11:00 AM EDT [facility] [address] [place] [phone] Aysha Hernandez MD [address] [place] [address] 11/22/2024 12:45 PM EDT Office Visit Adult Medicine [address] [phone] Lex Rich MD [address] [place] [phone] 03/13/2025 11:10 AM EDT Appointment Radiology Department - [address] [phone] Health Maintenance Due Date Last Done Comments Hepatitis B Vaccines (1 of 3 - 19+ 3-dose series) 1985 Pneumococcal Vaccine: 50+ Years (1 of 1 - PCV) 2016 Zoster Vaccines (1 of 2) 2016 Depression Screening 08/18/2023 HIV Screening 08/18/2023 Medicare Annual Wellness Visit 08/18/2023 Social Influencers of Health Screening 08/18/2023 COVID-19 Vaccine ( season) 2024 Influenza Vaccine (#1) 2024 04/19/2023 Colorectal Cancer Screening: Stool Based Tests (FOBT/FIT) 10/17/2024 10/18/2023 Hypertension/CHF/CAD Annual BMP Blood Test 07/12/2025 07/12/2024, 05/27/2024, 05/01/2024, Additional history exists Breast Cancer Screening 03/05/2026 03/05/20 24, 03/05/2024, 03/02/2023 Cholesterol Screening (Lipid Panel) 01/03/2029 01/04/2024, 01/04/2024 DTaP,Tdap,and Td Vaccines (2 - Td or Tdap) 04/19/2033 04/19/2023 Colorectal Cancer Screening: Colonoscopy Discontinued 09/21/2023 Hepatitis C Screening Completed 07/12/2024, 023 Cervical Cancer Screening: Pap Smear Discontinued HIB Vaccines Aged Out No longer eligi ble based on patient's age to complete this topic HPV Vaccines Aged Out No longer eligi ble based on patient's age to complete this topic Hepatitis A Vaccines Aged Out No long er eligible based on patient's age to complete this topic IPV Vaccines Aged Out No longer eligi ble based on patient's age to complete this topic MMR Vaccines Aged Out No longer eligi ble based on patient's age to complete this topic Meningococcal ACWY Vaccine Aged Out N o longer eligible based on patient's age to complete this topic Meningococcal B Vacine Aged Out No lo nger eligible based on patient's age to complete this topic Pneumococcal Vaccine: Pediatrics (0 to 5 Years) and At-Risk Patients (6 to 64 Years) Aged Out No longer eligible based on patient's age to complete this topic RSV Immunization Patients Under 20 months Aged Out No longer eligible based on patient's age to complete this topic Varicella Vaccines Aged Out No longer eligible based on patient's age to complete this topic Procedures Procedure Name Priority Date/Time Associated Diagnosis Comments XR HIP 2-3 VIEWS LEFT Routine 07/27/2024 2:21 PM EST Left hip pain C-REACTIVE PROTEIN Routine 07/27/2024 2: 07 PM EST Positive MADY (antinuclear antibody) SEDIMENTATION RATE Routine 07/27/2024 2: 07 PM EST Positive MADY (antinuclear antibody) THYROID PEROXIDASE ANTIBODY Routine 07/27/2024 2:07 PM EST Subclinical hyperthyroidism THYROID STIMULATING HORMONE WITH REFLEX TO FREE T4 AND FREE T3 Routine 07/27/2024 2:07 PM EST Subclinical hyperthyroidism ANTI-SCLERODERMA ANTIBODY Routine 07/27/2024 2:07 PM EST Positive MADY (antinuclear antibody) THYROGLOBULIN AND THYROGLOBULIN ANTIBODY PANEL Routine 07/27/2024 2:07 PM EST Subclinical hyperthyroidism TRIIODOTHYRONINE FREE Routine 07/12/2024 10:05 AM EST Polymyalgia rheumatica (CMS/HCC) FREE THYROXINE WITH REFLEX TO FREE TRIIODOTHYRONINE Routine 07/12/2024 10:05 AM EST Polymyalgia rheumatica (CMS/HCC) CBC WITH AUTO DIFFERENTIAL Routine 07/12/2024 10:05 AM EST Polymyalgia rheumatica (CMS/HCC) Myalgia SEDIMENTATION RATE Routine 07/12/2024 10 :05 AM EST Polymyalgia rheumatica (CMS/HCC) Myalgia C-REACTIVE PROTEIN Routine 07/12/2024 10 :05 AM EST Polymyalgia rheumatica (CMS/HCC) Myalgia BORRELIA BURGDORFERI ANTIBODY Routine 07/12/2024 10:05 AM EST Polymyalgia rheumatica (CMS/HCC) Myalgia CBC AND DIFFERENTIAL Routine 07/12/2024 10:05 AM EST Polymyalgia rheumatica (CMS/HCC) Myalgia COMPREHENSIVE METABOLIC PANEL Routine 07/12/2024 10:05 AM EST Polymyalgia rheumatica (CMS/HCC) Myalgia Hyponatremia MADY IFA WITH TITER AND PATTERN Routine 07/12/2024 10:05 AM EST Polymyalgia rheumatica (CMS/HCC) Myalgia ANTI-DNA ANTIBODY, DOUBLE-STRANDED Routine 07/12/2024 10:05 AM EST Polymyalgia rheumatica (CMS/HCC) Myalgia RHEUMATOID FACTOR Routine 07/12/2024 10: 05 AM EST Polymyalgia rheumatica (CMS/HCC) Myalgia CYCLIC CITRULLINATED PEPTIDE, IGG AND IGA Routine 07/12/2024 10:05 AM EST Polymyalgia rheumatica (CMS/HCC) Myalgia HEPATITIS C ANTIBODY Routine 07/12/2024 10:05 AM EST Encounter for hepatitis C screening test for low risk patient THYROID STIMULATING HORMONE WITH REFLEX TO FREE T4 AND FREE T3 Routine 07/12/2024 10:05 AM EST Polymyalgia rheumatica (CMS/HCC) ANTI-ANA 1 ANTIBODY, IGG Routine 07/12/20 24 10:05 AM EST Polymyalgia rheumatica (CMS/HCC) HEMOGLOBIN A1C Routine 07/12/2024 10:05 AM EST Myalgia [id number], RSV, FLU A AND B QUALITATIVE RT-PCR, LOCAL REFERENCE LAB Routine 07/12/2024 9:57 AM EST Myalgia SCREENING MAMMOGRAPHY BI 2-VIEW BREAST INC CAD Routine 03/05/2024 1:29 PM EDT Encounter for other screening for malignant neoplasm of breast LIPID PANEL Routine 01/04/2024 HM COLONOSCOPY Routine 09/21/2023 from Last 3 Months or Most Recently Relevant to Health Maintenance Results * XR Hip 2-3 Views Left (07/27/2024 2:21 PM EST) Anatomical Region Laterality Modality Lower Extremities, Hip Left Radiograp hic Imaging 07/27/2024 4:52 PM EST Narrative 07/27/2024 4:53 PM EST AP view of the pelvis. Left hip, 2 views. History pain. No prior studies are available for comparison. There is no fractures, dislocations or destructive lesions. There are small osteophytes arising from the lateral margin of the right acetabulum and small osteophytes arising from the right greater trochanter. CONCLUSIONS: No evidence of fractures or dislocations. Degenerative changes on the right as detailed. -------- FINAL REPORT -------- Dictated By: Olga Lidia Sanchez Dictated Date: 07/27/2024 16:52 ET Assigned Physician: Olga Lidia Sanchez Reviewed and Electronically Signed By: Olga Lidia Sanchez Signed Date: 07/27/2024 16:53 ET Workstation ID: [id number] Transcribed By: Self Edit Transcribed Date: 07/27/2024 16:52 ET Procedure Note Olga Lidia Sanchez MD - 07/27/2024 AP view of the pelvis. Left hip, 2 views. History pain. No prior studies are available for comparison. There is no fractures, dislocations or destructive lesions. There aresmall osteophytes arising from the lateral margin of the right acetabulumand small osteophytes arising from the right greater trochanter. CONCLUSIONS: No evidence of fractures or dislocations. Degenerativechanges on the right as detailed. -------- FINAL REPORT -------- Dictated By: Olga Lidia Sanchez Dictated Date: 07/27/2024 16:52 ET Assigned Physician: Olga Lidia Sanchez Reviewed and Electronically Signed By: Olga Lidia Sanchez Signed Date: 07/27/2024 16:53 ET Workstation ID: [id number] Transcribed By: Self Edit Transcribed Date: 07/27/2024 16:52 ET Lex Rich MD IMG XR PROCEDURE S Final Result * Thyroid stimulating hormone with reflex to free t4 and free t3 (07/27/2024 2:07 PM EST) Only the most recent of2 resultswithin the time period is included. Pathologist [facility] TSH 0.70 0.40 - 4.00 mcIU/mL LAB CHEMISTRY METHOD 07/27/2024 4:51 PM EST [facility] Blood Venous blood specimen / Unknown Venipuncture / Unknown 07/27/2024 2:07 PM EST 07/27/2024 2:07 PM EST Lex Rich MD LAB BLOOD ORDERA BLES Final Result [facility] [address] [place] [address], [place] [phone] * Thyroglobulin and thyroglobulin antibody panel (07/27/2024 2:07 PM EST) Pathologist [facility] Thyroglobulin Antibody <2 <4 IU/mL 07/30/2024 11:27 PM EST [facility] Thyroglobulin 4.4 SeeBelow ng/mL 07/30/2024 11:27 PM EST [facility] Comment: Thyroglobulin Reference Range: Intact thyroid: 1.6-50.0 ng/mL Athyrotic, post-thyroidectomy (tumor marker): <0.1 ng/mL Thyroglobulin antibodies can interfere with the determination of thyroglobulin. If the specimen contains thyroglobulin antibodies, please interpret the thyroglobulin result with caution. The KIYATEC DXI chemiluminescent immunoassay is used. Results obtained with different assay methods or kits cannot be used interchangeably. Results cannot be interpreted as absolute evidence of the presence or absence of malignant disease. Test performed at [facility], [address] , [place], [place] ??[address] ? [phone] Candi Hardin MD, PhD - [employer] Blood Venous blood specimen / Unknown Venipuncture / Unknown 07/27/2024 2:07 PM EST 07/27/2024 2:07 PM EST Lex Rich MD LAB BLOOD ORDERA BLES Final Result [facility] [address] [place] [address] * Thyroid peroxidase antibody (07/27/2024 2:07 PM EST) Pathologist [facility] Thyroid Peroxidase Ab 38.0 <=60.0 I Unit/mL LAB CHEMISTRY METHOD 07/27/2024 6:05 PM EST [facility] Blood Venous blood specimen / Unknown Venipuncture / Unknown 07/27/2024 2:07 PM EST 07/27/2024 2:07 PM EST Lex Rich MD LAB BLOOD ORDERA BLES Final Result [facility] [address] [place] [address], [place] [phone] * Anti-scleroderma antibody (07/27/2024 2:07 PM EST) Pathologist [facility] Scleroderma SCL - 70 Negative Negative LAB CHEMISTRY METHOD 07/29/2024 1:14 PM EST [facility] Blood Venous blood specimen / Unknown Venipuncture / Unknown 07/27/2024 2:07 PM EST 07/27/2024 2:07 PM EST Lex Rich MD LAB BLOOD ORDERA BLES Final Result Performing Organization Address City/[facility]/ZIP Co de Phone Number [facility] [address] [place] [address], [place] [phone] * (ABNORMAL) Sedimentation rate (07/27/2024 2:07 PM EST) Only the most recent of2 resultswithin the time period is included. Pathologist [facility] Sed Rate 44(H) 0 - 30 mm/hr LAB HEMETOLOGY METHOD 07/27/2024 4:45 PM EST [facility] Blood Venous blood specimen / Unknown Venipuncture / Unknown 07/27/2024 2:07 PM EST 07/27/2024 2:07 PM EST Lex Rich MD LAB BLOOD ORDERA BLES Final Result Performing Organization Address [facility] Co de Phone Number [facility] [address] [place] [address], [place] [phone] * (ABNORMAL) C-reactive protein (07/27/2024 2:07 PM EST) Only the most recent of2 resultswithin the time period is included. [facility] C-Reactive Protein 4.85(H) <=0.50 mg/dL LAB CHEMISTRY METHOD 07/27/2024 4:46 PM EST [facility] Blood Venous blood specimen / Unknown Venipuncture / Unknown 07/27/2024 2:07 PM EST 07/27/2024 2:07 PM EST Lex Rich MD LAB BLOOD ORDERA BLES Final Result Performing Organization Address City/[facility]/ZIP Co de Phone Number [facility] [address] [place] [address], [place] [phone] * Hepatitis C antibody (07/12/2024 10:05 AM EST) [facility] Hepatitis C Antibody Negative Negative LAB CHEMISTRY METHOD 07/12/2024 1:27 PM [facility] Blood Venous blood specimen / Unknown Venipuncture / Unknown 07/12/2024 10:05 AM EST 07/12/2024 10:05 AM EST Lex Rich MD LAB BLOOD ORDERA BLES Final Result Performing Organization Address City/[facility]/ZIP Co de Phone Number [facility] [address] [place] [address], [place] [phone] * Free thyroxine with reflex to free triiodothyronine (07/12/2024 10:05 AM EST) [facility] Free T4 1.29 0.70 - 1.80 ng/dL LAB CHEMISTRY METHOD 07/12/2024 1:14 PM [facility] Blood Venous blood specimen / Unknown Venipuncture / Unknown 07/12/2024 10:05 AM EST 07/12/2024 10:05 AM EST Lex Rich MD LAB BLOOD ORDERA BLES Final Result Performing Organization Address City/[facility]/ZIP Co de Phone Number [facility] [address] [place] [address], [place] [phone] * Cyclic citrullinated peptide, IgG and IgA (07/12/2024 10:05 AM EST) [facility] CCP AB Quant 6 <20 Units LAB CHEMISTRY METHOD 07/17/2024 11:49 AM [facility] Cyclic Citrullinated Peptide (CCP) Antibody Negative Negative LAB CHEMISTRY METHOD 07/17/2024 11:49 AM [facility] Blood Venous blood specimen / Unknown Venipuncture / Unknown 07/12/2024 10:05 AM EST 07/12/2024 10:05 AM EST Lex Rich MD LAB BLOOD ORDERA BLES Final Result Performing Organization Address [facility]/ZIP Co de Phone Number [facility] [address] [place] [address], [place] [phone] * (ABNORMAL) MADY IFA with titer and pattern (07/12/2024 10:05 AM EST) MADY Positive( A) Negative 07/13/2024 12:04 PM EST [facility] MADY Pattern Nucleolar (A) (none) 07/13/2024 12:04 PM [facility] Comment: May be associated with scleroderma. If clinical suspicion of scleroderma consider testing for anti-SCL-70. Titer 1:1280(A) <1:160 07/13/2024 12:04 PM [facility] Blood Venous blood specimen / Unknown Venipuncture / Unknown 07/12/2024 10:05 AM EST 07/12/2024 10:05 AM EST Lex Rich MD LAB BLOOD ORDERA BLES Final Result Performing Organization Address City/[facility]/ZIP Co de Phone Number [facility] [address] [place] [address], [place] [phone] * (ABNORMAL) CBC auto differential (07/12/2024 10:05 AM EST) WBC 10.5 4.8 - 10.8 K/mcL LAB HEMETOLOGY METHOD 07/12/2024 12:19 PM [facility] RBC 4.30 3.80 - 4.80 M/mcL LAB HEMETOLOGY METHOD 07/12/2024 12:19 PM [facility] Hemoglobin 12.7 11.5 - 16.0 g/dL LAB HEMETOLOGY METHOD 07/12/2024 12:19 PM [facility] Hematocrit 41.0 35.0 - 47.0 % LAB HEMETOLOGY METHOD 07/12/2024 12:19 PM [facility] MCV 94.9 79.0 - 98.0 FL LAB HEMETOLOGY METHOD 07/12/2024 12:19 PM [facility] MCH 29.4 27.0 - 32.0 pcg LAB HEMETOLOGY METHOD 07/12/2024 12:19 PM [facility] MCHC 31.0(L) 32.0 - 37.0 g/dL LAB HEMETOLOGY METHOD 07/12/2024 12:19 PM [facility] RDW 17.2(H) 11.0 - 15.0 % LAB HEMETOLOGY METHOD 07/12/2024 12:19 PM [facility] Platelets 541(H) 130 - 400 K/mcL LAB HEMETOLOGY METHOD 07/12/2024 12:19 PM [facility] MPV 9.3 7.0 - 11.0 FL LAB HEMETOLOGY METHOD 07/12/2024 12:19 PM [facility] NRBC 0.0 <1.0 % LAB HEMETOLOGY METHOD 07/12/2024 12:19 PM [facility] NRBC Absolute 0.00 <0.10 K/mcL LAB HEMETOLOGY METHOD 07/12/2024 12:19 PM [facility] [facility] Neutrophils Relative 76.5 % LAB HEMETOLOGY METHOD 07/12/2024 12:19 PM [facility] Lymphocytes Relative 18.7 % LAB HEMETOLOGY METHOD 07/12/2024 12:19 PM [facility] Monocytes Relative 3.6 % LAB HEMETOLOGY METHOD 07/12/2024 12:19 PM [facility] Eosinophils Relative 0.0 % LAB HEMETOLOGY METHOD 07/12/2024 12:19 PM [facility] Basophils Relative 0.2 % LAB HEMETOLOGY METHOD 07/12/2024 12:19 PM [facility] Immature Granulocytes Relative 1.0 % LAB HEMETOLOGY METHOD 07/12/2024 12:19 PM [facility] Neutrophils Absolute 8.01(H) 1.50 - 7.00 K/mcL LAB HEMETOLOGY METHOD 07/12/2024 12:19 PM [facility] Lymphocytes Absolute 1.96 1.00 - 5.00 K/mcL LAB HEMETOLOGY METHOD 07/12/2024 12:19 PM [facility] Monocytes Absolute 0.38 0.20 - 1.00 K/mcL LAB HEMETOLOGY METHOD 07/12/2024 12:19 PM [facility] Eosinophils Absolute 0.00 0.00 - 0.50 K/mcL LAB HEMETOLOGY METHOD 07/12/2024 12:19 PM [facility] Basophils Absolute 0.02 0.00 - 0.20 K/mcL LAB HEMETOLOGY METHOD 07/12/2024 12:19 PM [facility] Immature Granulocytes Absolute 0.10(H) 0.00 - 0.03 K/mcL LAB HEMETOLOGY METHOD 07/12/2024 12:19 PM [facility] Blood Venous blood specimen / Unknown Venipuncture / Unknown 07/12/2024 10:05 AM EST 07/12/2024 10:05 AM EST Lex Rich MD LAB BLOOD ORDERA BLES Final Result [facility] [address] [place] [address], [place] [phone] * Borrelia burgdorferi antibody (07/12/2024 10:05 AM EST) Pathologist [facility] Lyme Ab Negative Negative LAB CHEMISTRY METHOD 07/12/2024 12:54 PM EST [facility] Comment: No laboratory evidence of infection with B. burgdorferi (Lyme disease). Negative results may occur in patients recently infected (<=14 days) with B. burgdorferi. ??If recent infection is suspected, repeat testing on a new sample collected in 7-14 days is recommended. Blood Venous blood specimen / Unknown Venipuncture / Unknown 07/12/2024 10:05 AM EST 07/12/2024 10:05 AM EST Lex Rich MD LAB BLOOD ORDERA BLES Final Result [facility] [address] [place] [address], * Anti-Ana 1 antibody, IgG (07/12/2024 10:05 AM EST) [facility] ANA-1 IgG Antibody 0.3 <7.0 U/mL 07/16/2024 3:15 PM EST [facility] Comment: INTERPRETATION: Negative Test performed at [facility], [address] [place], [place] ??[address] ? [phone] Candi Hardin MD, PhD - Ceramic Coater Blood Venous blood specimen / Unknown Venipuncture / Unknown 07/12/2024 10:05 AM EST 07/12/2024 10:05 AM EST Lex Rich MD LAB BLOOD ORDERA BLES Final Result [facility] [address] [place] [address] [address] * DNA antibody, double-stranded (07/12/2024 10:05 AM EST) [facility] Anti-DNA Double Stranded Antibody Negative Negative LAB CHEMISTRY METHOD 07/15/2024 10:40 AM EST [facility] ds DNA Ab 37 <=200 I Unit/mL LAB CHEMISTRY METHOD 07/15/2024 10:40 AM EST [facility] Blood Venous blood specimen / Unknown Venipuncture / Unknown 07/12/2024 10:05 AM EST 07/12/2024 10:05 AM EST Lex Rich MD LAB BLOOD ORDERA BLES Final Result Performing Organization Address City/[facility]/ZIP Co de Phone Number [facility] [address] [place] [address], [place] [phone] * (ABNORMAL) Rheumatoid factor (07/12/2024 10:05 AM EST) [facility] Rheumatoid Factor 1,400.0(H ) <15.0 I Unit/mL LAB CHEMISTRY METHOD 07/12/2024 1:03 PM EST [facility] Blood Venous blood specimen / Unknown Venipuncture / Unknown 07/12/2024 10:05 AM EST 07/12/2024 10:05 AM EST Lex Rich MD LAB BLOOD ORDERA BLES Final Result [facility] [address] [place] [address], [place] [phone] * Triiodothyronine free (07/12/2024 10:05 AM EST) [facility] T3, Free 262 230 - 420 pcg/dL LAB CHEMISTRY METHOD 07/12/2024 1:42 PM EST [facility] Blood Venous blood specimen / Unknown Venipuncture / Unknown 07/12/2024 10:05 AM EST 07/12/2024 10:05 AM EST Lex Rich MD LAB BLOOD ORDERA BLES Final Result [facility] [address] [place] [address], [place] [phone] * Hemoglobin A1c (07/12/2024 10:05 AM EST) Pathologist [facility] Hemoglobin A1C 6.3 <6.5 % LAB CHEMISTRY METHOD 07/12/2024 8:55 PM EST [facility] Mean Bld Glu Estim. 134 mg/dL LAB CHEMISTRY METHOD 07/12/2024 8:55 PM [facility] Blood Venous blood specimen / Unknown Venipuncture / Unknown 07/12/2024 10:05 AM EST 07/12/2024 10:05 AM EST Lex Rich MD LAB BLOOD ORDERA BLES Final Result [facility] [address] [place] [address], [place] [phone] * (ABNORMAL) Comprehensive metabolic panel (07/12/2024 10:05 AM EST) Pathologist [facility] Sodium 135 133 - 145 mmol/L LAB CHEMISTRY METHOD 07/12/2024 12:41 PM [facility] Potassium 5.2 3.5 - 5.5 mmol/L LAB CHEMISTRY METHOD 07/12/2024 12:41 PM [facility] Chloride 100 96 - 110 mmol/L LAB CHEMISTRY METHOD 07/12/2024 12:41 PM [facility] CO2 28 21 - 32 mmol/L LAB CHEMISTRY METHOD 07/12/2024 12:41 PM [facility] Anion Gap 7 3 - 11 LAB CHEMISTRY METHOD 07/12/2024 12:41 PM [facility] Glucose 105(H) 70 - 100 mg/dL LAB CHEMISTRY METHOD 07/12/2024 12:41 PM [facility] BUN 10 5 - 25 mg/dL LAB CHEMISTRY METHOD 07/12/2024 12:41 PM [facility] Creatinine 0.60 0.50 - 1.10 mg/dL LAB CHEMISTRY METHOD 07/12/2024 12:41 PM [facility] eGFR 105 >=60 mL/min/1. 73m2 LAB CHEMISTRY METHOD 07/12/2024 12:41 PM [facility] Comment:Calculation based on the??Chronic Kidney Disease Epidemiology Collaboration (CKD-EPI) equation refit??without adjustment for race. BUN/Creatinine Ratio 16.7 LAB CHEMISTRY METHOD 07/12/2024 12:41 PM [facility] Calcium 9.6 8.5 - 10.5 mg/dL LAB CHEMISTRY METHOD 07/12/2024 12:41 PM [facility] AST (SGOT) 12 10 - 42 unit/L LAB CHEMISTRY METHOD 07/12/2024 12:41 PM [facility] ALT (SGPT) 26 10 - 60 unit/L LAB CHEMISTRY METHOD 07/12/2024 12:41 PM [facility] Alkaline Phosphatase 92 42 - 121 unit/L LAB CHEMISTRY METHOD 07/12/2024 12:41 PM [facility] Total Protein 7.2 6.0 - 8.0 g/dL LAB CHEMISTRY METHOD 07/12/2024 12:41 PM [facility] Albumin 2.7(L) 3.2 - 5.0 g/dL LAB CHEMISTRY METHOD 07/12/2024 12:41 PM [facility] Total Bilirubin 0.4 0.0 - 1.4 mg/dL LAB CHEMISTRY METHOD 07/12/2024 12:41 PM [facility] Blood Venous blood specimen / Unknown Venipuncture / Unknown 07/12/2024 10:05 AM EST 07/12/2024 10:05 AM EST Lex Rich MD LAB BLOOD ORDERA BLES Final Result [facility] [address] [place] [address], * [id number], RSV, Influenza A and B qualitative RT-PCR (07/12/2024 9:57 AM EST) SARS COV-2 Not Detected Not Detected LAB MOLECULAR DIAGNOSTICS METHOD 07/12/2024 11:39 PM [facility] Comment: Disclaimer: The manner in which this information is used to guide patient care is the responsibility of the healthcare provider. Testing was performed using the [employer]nity m SARS-CoV-2 test. This test has been authorized by FDA under an Emergency Use Authorization (EUA). This test is only authorized for the duration of time the declaration that circumstances exist justifying the authorization of the emergency use of in vitro diagnostic tests for detection of SARS-CoV-2 virus and/or diagnosis of COVID-19 infection under section 564(b)(1) of the Act, 21 U.S.C. 360bbb- 3(b)(1), unless the authorization is terminated or revoked sooner. Fact sheet for Healthcare Providers can be found at: https://www.fda.gov/media/272956/download Fact sheet for Patients can be found at: https://www.fda.gov/media/855531/download Influenza A PCR Not Detected Not Detected LAB MOLECULAR DIAGNOSTICS METHOD 07/12/2024 11:39 PM EST [facility] Influenza B PCR Not Detected Not Detected LAB MOLECULAR DIAGNOSTICS METHOD 07/12/2024 11:39 PM [facility] RSV PCR Not Detected Not Detected LAB MOLECULAR DIAGNOSTICS METHOD 07/12/2024 11:39 PM [facility] Swab Nasopharyngeal structure / Unknown Non-blood Collection / Unknown 07/12/2024 9:57 AM EST 07/12/2024 9:57 AM EST Lex Rich MD LAB MICROBIOLOGY - GENERAL ORDERABLES Final Result [facility] [address] [place] [address], * SCREENING MAMMOGRAPHY BI 2-VIEW BREAST INC CAD (03/05/2024 1:29 PM EDT) Anatomical Region Laterality Modality Radiographic María ging 03/02/2023 8:57 AM EDT Narrative 03/06/2024 9:21 AM EDT This is a summary report. The complete report is available in the patient's medical record. If you cannot access the medical record, please contact the sending organization for a detailed fax or copy. Study: SCREENING MAMMOGRAPHY BI 2-VIEW BREAST INC CAD Technique: Bilateral full-field digital screening mammography is obtained and read in conjunction with computer aided detection. ??Tomosynthesis as well as 2D C-View imaging were obtained. Comparison: March 02, 2023 and May 26, 2022 Breast composition: The breast tissue is heterogeneously dense, which may obscure small masses. Bilateral breasts: No significant masses, suspicious calcifications or other abnormalities are seen in either breast. IMPRESSION: Impression: Bilateral breasts: Negative, no specific mammographic evidence of malignancy. ??Normal interval follow-up is recommended in 12 months. BI-RADS: Category 1: Negative Procedure Note Gopi Aponte MD - 05/09/2024 This is a summary report. The complete report is available in thepatient's medical record. If you cannot access the medical record, pleasecontact the sending organization for a detailed fax or copy. Study: SCREENING MAMMOGRAPHY BI 2-VIEW BREAST INC CAD Technique: Bilateral full-field digital screening mammography is obtainedand read in conjunction with computer aided detection. Tomosynthesis aswell as 2D C-View imaging were obtained. Comparison: March 02, 2023 and May 26, 2022 Breast composition: The breast tissue is heterogeneously dense, which mayobscure small masses. Bilateral breasts: No significant masses, suspicious calcifications orother abnormalities are seen in either breast. IMPRESSION: Impression: Bilateral breasts: Negative, no specific mammographic evidence ofmalignancy. Normal interval follow-up is recommended in 12 months. BI-RADS: Category 1: Negative Christianne TARIQ IMG XR PROCEDURES Final Resul t * Lipid panel (01/04/2024) LDL/HDL Ratio 3 0 - 4 Triglycerides 59 0 - 150 mg/dL Cholesterol 158 0 - 200 mg/dL HDL 62 >=40 mg/dL LDL Cholesterol 85 0 - 100 mg/dL Blood Venous blood specimen / Unknown Historical Provider LAB BLOOD ORDERABLES Hodan l Result * Colonoscopy (09/21/2023) Colonoscopy no interpreta tion,abstr acted Anatomical Region Laterality Modality Other Historical Provider HEALTH MAINTENANCE Final Result from Last 3 Months or Most Recently Relevant to Health Maintenance Insurance [employer] MEDICARE Member Subscriber Plan / Payer (Ef fective 2022-Present) Name:Patricia Alexandre Relation to Subscriber:Self Name:Patricia Alexandre Payer ID:[id number] Group ID:[id number] Type:Not on file Address: [address] [facility] [place] [phone] Care Teams Fire Behavior Analyst Relationship Specialty Start Date End Date Lex Rich MD [address] [place] [id number] PCP - General Internal Medicine 05/24/24
--- OUTSIDE RECORDS SUMMARY | 2024-09-23 15:56 | XMS_ITS | Encounter Summary ---
Author Organization [facility] Address [address] [place] [address] Care Team Providers Care Certified Surgical First Assistant Name Role Phone Lex Rich MD Primary Care Pr ovider Encounter Details Date Type Department Care Team (Late Contact Info) Description 09/19/2024 Billing Patient Not Present Adult Medicine [address] [phone] [place] Social History Tobacco Use Types Packs/Day Years [...] PM EST documented as of this encounter Plan of Treatment Upcoming Encounters Date Type Department Care Team (Late Contact Info) Description 10/23/2024 11:00 AM EDT Office Visit [facility] [address] [phone] Aysha Hernandez MD 175 [facility] [address] [place] [address] 11/22/2024 12:45 PM EDT Office Visit [facility] - [address] [phone] Lex Rich MD [address] [place] [address] 03/13/2025 11:10 AM EDT Appointment Radiology Department - [address] [phone] documented as of this encounter Visit Diagnoses Not on filedocumented in this encounter Care Teams Certified Surgical First Assistant Relationship Specialty Start Date End Date Lex Rich MD [address] [place] [id number] PCP - General Internal Medicine 05/24/24 documented as of this encounter
--- OUTSIDE RECORDS SUMMARY | 2024-09-23 15:57 | XMS_ITS | Encounter Summary ---
Author Organization [facility] Address [address] [place] [address] Care Team Providers Care Lawn Mower Name Role Phone Lex Rich MD Primary Care Pr ovider Encounter Details Date Type Department Care Team (Late st Contact Info) Description 08/03/2024 [facility]phone [facility] [place] [address] [place] [phone] Aysha Hernandez MD [address] [facility] [address] [place] [address] Social History Tobacco Use Types Packs/Day Years [...] as of this encounter Progress Notes * James Rodríguez MA - 08/03/2024 4:48 PM EST Medication was not prescribe by Dr. Henrandez.m please advise * Ubaldo Stoner - 08/03/2024 3:42 PM EST Patient niece called to informed provider that the previous pharmacy they had send Rx to will not be able to fulfill the order. Patient is requesting the RX to be send to [facility] FAX [phone] documented in this encounter Plan of Treatment Upcoming Encounters Date Type Department Care Team (Late st Contact Info) Description 10/23/2024 11:00 AM EDT Office Visit [facility] - [place] [address] [facility] [address] [phone] Aysha Hernandez MD [address] [address] 11/22/2024 12:45 PM EDT Office Visit Adult Medicine [address] [phone] Lex Rich MD [address] [place] [address] 03/13/2025 11:10 AM EDT Appointment Radiology Department - [address] [phone] documented as of this encounter Visit Diagnoses Not on filedocumented in this encounter Care Teams Lawn Mower Relationship Specialty Start Date End Date Lex Rich MD [address] [place] [address] PCP - General Internal Medicine 05/24/24 documented as of this encounter
--- OUTSIDE RECORDS SUMMARY | 2024-09-23 15:57 | XMS_ITS | Encounter Summary ---
Author Organization [facility] Address [address] [place] [address] Care Team Providers Care Homemaker Companion Name Role Phone Lex Rich MD Primary Care Pr ovider Encounter Details Date Type Department Care Team (Late Contact Info) Description 08/07/2024 Telephone Adult Medicine [address] [phone] Alex Hernández LPN Social History Tobacco Use Types Packs/Day Years [...] Description 10/23/2024 11:00 AM EDT Office Visit [facility] [address] [phone] Aysha Hernandez MD 175 [facility] [address] [place] [address] 11/22/2024 12:45 PM EDT Office Visit Adult Medicine [address], [place] [phone] Lex Rich MD [address] [place] [address] 03/13/2025 11:10 AM EDT Appointment Radiology Department - [address] [phone] documented as of this encounter Visit Diagnoses Not on filedocumented in this encounter Care Teams Homemaker Companion Relationship Specialty Start Date End Date Lex Rich MD [address] [place] [address] PCP - General Internal Medicine 05/24/24 documented as of this encounter
--- NOTE | 2024-09-23 16:29 | ED.GENADULT ---
HPI - General Adult General Chief complaint: General Medical Stated complaint: chronic pain, unable to ambulate Time Seen by Provider: 09/23/24 16:01 Source: patient, EMS and old records reviewed Mode of arrival: EMS Limitations: language barrier History of Present Illness ED Provider: Diamante Bailey PA-C HPI narrative: This is a 58-year-old [place]-speaking female, with a past medical history significant for PMR, idiopathic pulmonary fibrosis, CAD, and hyperlipidemia, who reported to the emergency department, accompanied by her niece, via EMS with concerns for polymyalgia rheumatica flare-up. Patient reports that she was able to walk your after being discharged however states that 1 week ago her left leg gave out on her, and she fell over onto her left side. Her niece was present during the entire fall, she did not hit her head or lose consciousness. Niece states that since this fall, she has had increased body aches and weakness, niece states that she has not gotten out of bed in over 1 day. She has had no fevers, chills, chest pain, shortness of breath, abdominal pain, nausea, vomiting or diarrhea. She is still eating and drinking. She was discharged from physical therapy several weeks ago. Niece states that she has an appointment with pain management this upcoming week. She states that she has been unable to perform all activities of daily living secondary to the pain that she has been experiencing. She has been taking baclofen as well as her prednisone taper which has not helped her with pain relief. Patient was recently seen here in the emergency room, and admitted from July 31 through August 07 due to acute polymyalgia rheumatica. At that time, she had a negative head CT, negative ultrasound for DVT, tick-borne panel was negative, she was treated with IV Solu-Medrol, and plan was discharged with slow prednisone taper for the right remaining 3-1/2 weeks. complaint: Body pain Onset (ago): day(s) Quality: aching Pain Consistency: constant Relieving factors: none Exacerbating factors: none Associated symptoms: denies other symptoms Treatments prior to arrival: none Related Data Home Medications ?Medication ?Instructions ?Recorded ?Confirmed atorvastatin 40 mg tablet 40 mg PO DAILY 07/31/24 09/24/24 baclofen 10 mg tablet 10 mg PO TID 07/31/24 09/24/24 buspirone 7.5 mg tablet 7.5 mg PO BID 07/31/24 09/24/24 isosorbide mononitrate 30 mg 30 mg PO DAILY 07/31/24 09/24/24 tablet,extended release 24 hr prazosin 1 mg capsule 1 mg PO BEDTIME 07/31/24 09/24/24 trazodone 100 mg tablet 100 mg PO BEDTIME 07/31/24 09/24/24 nintedanib 150 mg capsule (Ofev) 150 mg PO BID 08/01/24 09/24/24 cholecalciferol (vitamin D3) 25 25 mcg PO DAILY 09/24/24 09/24/24 mcg (1,000 unit) tablet cyanocobalamin (vitamin B-12) 1,000 mcg PO DAILY 09/24/24 09/24/24 1,000 mcg tablet Previous Rx's ?Medication ?Instructions ?Recorded prednisone 10 mg tablet 10 mg PO DAILY #60 tabs 09/26/24 Allergies Allergy/AdvReac Type Severity Reaction Status Date / Time No Known Allergies Allergy Verified 09/23/24 15:35 Review of Systems Review of Systems: Yes all other systems are reviewed and are negative Constitutional: Constitutional: Reports as per [facility] Past Medical History Medical History CAD (coronary artery disease) Idiopathic pulmonary fibrosis Polymyalgia rheumatica Social History Social History Household Members: None Housing: Apartment Do you presently have visiting nurse or other home services: No (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 If so, by whom?: No Do you feel safe in your current relationship?: No Current Relationship Is there a partner from a previous relationship who is making you feel unsafe now?: No Are you made to feel afraid or neglected: No [employer] Healthcare Practices: [employer] Advance Directives: No Advance Directives Information Provided: Yes Do you have a plan to hurt others: No Plan Recently lost weight without trying: Yes How much weight loss: 2-13 pounds Eating poorly because of decreased appetite: No Nutrition screen score: 3 Nutrition Risks: No Nutritional Risk Patient : No : No Poor oral hygiene: No service: No Physical Exam ED Vital Signs: Vital Signs - 24 hr 09/23/24 15:33 09/23/24 18:43 Temperature 97.4 F Pulse Rate 99 98 Respiratory Rate 20 20 Blood Pressure 120/72 125/75 Pulse Oximetry 100 98 Oxygen Delivery Method Room Air BMI result Body Mass Index 24.5 Const General: cooperative, comfortable and no acute distress Orientation/consciousness: patient oriented x3 Limitations: no limitations HENMT Head: Yes normal to inspection, Yes normocephalic and Yes atraumatic Ears: hearing grossly normal bilaterally General nose exam: Normal external nose present Face and sinus: Yes normal facial exam Mouth: Normal oral and palatal mucosa present, oropharynx normal and moist mucous membranes Throat: Yes posterior oropharynx normal Eyes General: appearance normal, both eyes and all related structures Eyelids: Yes eyelids normal Conjunctivae: conjunctivae normal Sclerae: sclerae normal Pupils: Equal, round and reactive pupils present EOM: EOMs intact bilaterally Neck Neck: Yes normal visual inspection, Yes full ROM and Yes no lymphadenopathy Lymphatic: no lymphadenopathy noted Chest Chest palpation & inspection: normal inspection of the chest Resp Effort & Inspection: normal respiratory effort and able to speak in complete sentences Auscultation: clear to auscultation bilaterally, no crackles, no rales, no rhonchi and no wheezes Cardio Rate: regular rate Rhythm: regular rhythm Heart sounds: S1 normal heart sound present and S2 normal heart sound present GI Inspection: Yes normal to inspection Skin General skin exam: no rashes or lesions noted Trauma: no lacerations or abrasions Wounds: no wounds Neuro Other: Patient with global weakness, worsened lower extremities, reflexes are present 1+ bilaterally to the lower extremities. Legs are well perfused, no bony tenderness. Strong Femoral and DP pulse noted. General: patient oriented x3 and moves all extremities Cranial nerves: Yes CN's II-XII intact bilaterally and Yes Equal, round and reactive pupils present Cognition (Neuro): normal cognition Extrem Other: No calf tenderness, tenderness palpation throughout entire leg, legs are well perfused, strong DP pulse. General: Yes normal to inspection Right upper extremity: normal to inspection Left upper extremity: normal to inspection Right lower extremity: normal to inspection Left lower extremity: normal to inspection Course Reevaluation(s) Reevaluation #1: Re-evaluated patient, patient resting comfortably after receiving Dilaudid. Given inability to walk, patient should be admitted for further evaluation and management of her PMR flare-up. Time: 19:12 Reevaluation #2: Attempted to get patient up out of bed however patient unable to even stand secondary to her pain. Given this, patient should be admitted for further treatment. Transfer of care initiated to the inpatient medical service. Time: 19:42 Medications Administered Discontinued Medications Generic Name Dose Route Start Last Admin Trade Name Freq PRN Reason Stop Dose Admin Atorvastatin Calcium 40 mg 09/25/24 09:00 09/26/24 08:04 Atorvastatin Calcium 40 Mg Tablet PO 40 mg DAILY YONATAN Administration Baclofen 10 mg 09/24/24 15:00 09/26/24 08:04 Baclofen 10 Mg Tablet PO 10 mg TID YONATAN Administration Buspirone HCl 7.5 mg 09/24/24 21:00 09/26/24 08:04 Buspirone Hcl 5 Mg Tablet PO 7.5 mg BID YONATAN Administration Cyanocobalamin 1,000 mcg 09/25/24 09:00 09/26/24 08:04 Cyanocobalamin (Vitamin B-12) 1,000 Mcg Tablet PO 1,000 mcg DAILY YONATAN Administration Enoxaparin Sodium 40 mg 09/23/24 22:00 09/25/24 20:36 Enoxaparin Sodium 40 Mg/0.4 Ml Syringe SUBCUT 40 mg Q24H YONATAN Administration Hydromorphone HCl 1 mg 09/23/24 18:07 09/23/24 18:41 Hydromorphone Hcl 1 Mg/Ml Syringe IVPUSH 09/23/24 18:08 1 mg ONCE ONE Administration Protocol Insulin Human Lispro 0 unit 09/24/24 07:30 09/26/24 11:52 Insulin Lispro 100 Unit/Ml 3 Ml Vial SUBCUT Not Given Q[facility]ACHS [facility] Protocol Isosorbide Mononitrate 30 mg 09/25/24 09:00 09/26/24 08:03 Isosorbide Mononitrate 30 Mg Tab.Er.24h PO 30 mg DAILY YONATAN Administration Protocol Methylprednisolone Sodium Succinate 60 mg 09/23/24 20:03 09/23/24 20:47 Methylprednisolone Sod Succ 125 Mg/2 Ml Vial IVPUSH 09/23/24 20:04 60 mg ONCE ONE Administration Methylprednisolone Sodium Succinate 60 mg 09/24/24 20:15 09/25/24 20:36 Methylprednisolone Sod Succ 125 Mg/2 Ml Vial IVPUSH 60 mg Q24H YONATAN Administration Morphine Sulfate 4 mg 09/23/24 16:56 09/23/24 17:39 Morphine Sulfate 4 Mg/Ml Cartridge IVPUSH 09/23/24 16:57 4 mg ONCE ONE Administration Protocol Morphine Sulfate 4 mg 09/23/24 21:06 09/26/24 10:21 Morphine Sulfate 4 Mg/Ml Cartridge IVPUSH 4 mg Q4H PRN Administration Pain, Severe (Pain Scale 7-10) Protocol Pt Own (Nintedanib [ 150 mg 09/24/24 21:00 09/26/24 10:21 Ofev] 150 Mg Capsule PO 150 mg ) BID YONATAN Administration Oxycodone HCl 5 mg 09/23/24 21:06 09/26/24 12:59 Oxycodone Hcl Immed Release 5 Mg Tablet PO 5 mg Q6H PRN Administration Pain, Moderate(Pain Scale 4-6) Prazosin HCl 1 mg 09/24/24 21:00 09/25/24 20:36 Prazosin Hcl 1 Mg Capsule PO 1 mg BEDTIME YONATAN Administration Protocol Sodium Chloride 3 ml 09/24/24 00:00 09/26/24 08:06 0.9 % Sodium Chloride Flush 3 Ml Syringe IVFLUSH 3 ml QSHIFT YONATAN Administration Trazodone HCl 100 mg 09/24/24 21:00 09/25/24 20:36 Trazodone Hcl 100 Mg Tablet PO 100 mg BEDTIME YONATAN Administration Vitamin D 25 mcg 09/25/24 09:00 09/26/24 08:04 Cholecalciferol (Vitamin D3) 25 Mcg Tablet PO 25 mcg DAILY YONATAN Administration Medical Decision Making Medical Decision Making MDM Narrative: 58-year-old female with a history of diabetes mellitus, hyperlipidemia, polymyalgia rheumatica, positive MADY and RF, depression, who presents emergency department for evaluation of severe pain in her upper and lower extremities with weakness x1 week and inability to walk over last 2-3 days. On arrival, vital signs within normal limits. She is speaking full sentences. Patient with diffuse body aches. During my examination, patient has increased tenderness palpation were shoulders, hips, elbows, knees with less tenderness overlying her wrists and fingers, and no overlying warmth over her joints. She has no joint effusions noted. She was weakness in her upper and lower extremity secondary to pain, she does have symmetric reflexes. Labs were performed, she has no leukocytosis, stable H&H, she does have an elevated CRP at 13.7. Glucose slightly elevated at 143. Will obtain x-rays of the hip and pelvis. Upon review of initial presentation in July 31, 2024, this is a very similar presentation that she had had. She has not had sudden weakness, just increased pain throughout her joints causing worsening weakness in her lower extremities, causing her the inability to walk. Patient was treated with morphine 4 mg initially however this did not provide her with any relief. Dilaudid 1 mg IV ordered. Differential Diagnosis Differential Diagnoses: The differential diagnosis associated with the presentation includes Myalgia, electrolyte derangement, PMR flare-up Admission/Observation Consideration of admission/observation: Escalation of care including admission/observation considered Given patient unable to ambulate secondary to pain, patient requiring admission for pain management as well as polymyalgia rheumatica Lab Data [facility] Lab Attestation statement: I reviewed the patient's lab results. See MDM and course 09/25/24 05:52 09/25/24 05:52 Labs: Lab Results 09/23/24 09/24/24 09/24/24 Range/Units 17:35 04:20 05:28 WBC 10.7 10.2 (4.8-10.8) X10*3/uL RBC 4.55 4.48 (4.20-5.50) X10*6/uL Hgb 13.3 13.1 (12.0-16.0) g/dl Hct 40.9 40.1 (37.0-47.0) % MCV 89.9 89.5 (80.0-98.0) fL MCH 29.2 29.2 (27.0-33.0) pg MCHC 32.5 32.7 (31.0-35.0) g/dl RDW 17.7 H 17.8 H (11.0-16.0) % Plt Count 444 H 465 H (160-400) X10*3/uL MPV 8.6 L 8.7 L (9.4-12.3) fL Immature Gran % (Auto) 0.8 H (0.0-0.4) % Neut % (Auto) 60.0 (45-73) % Lymph % (Auto) 27.0 (20-40) % [place] % (Auto) 10.5 (2-11) % Eos % (Auto) 1.0 (0-4) % Baso % (Auto) 0.7 (0-2) % Lymph # (Auto) 2.9 (1.2-4.9) X10*3/uL [place] # (Auto) 1.1 (0.1-1.2) X10*3/uL Eos # (Auto) 0.1 (0.0-0.4) X10*3/uL Baso # (Auto) 0.1 (0.0-0.2) X10*3/uL Abs Immat Gran (auto) 0.09 H (0.00-0.03) X10*3/uL Absolute Neuts (auto) 6.4 (2.0-8.3) x10*3/uL Absolute Nucleated RBC 0.000 0.000 (0.0-0.012) X10*3/uL Nucleated RBC % (auto) 0.0 0.0 (0.0-0.2) /100WBC ESR 73 H (0-20) MM/HR Sodium 134 L 130 L (135-145) mmol/L Potassium 4.6 4.9 (3.3-5.1) mmol/L Chloride 99 97 (96-108) mmol/L Carbon Dioxide 23 22 (22-29) mmol/L Anion Gap 17 16 (12-20) BUN 10 11 (9-16) mg/dL Creatinine 0.66 0.68 (0.5-1.4) mg/dL Estim Creat Clear Calc 74.4 72.2 Estimated GFR > 60 > 60 POC Glucose (60-115) mg/dL Random Glucose 143 H 254 H (60-115) mg/dL Calcium 8.8 9.6 D (8.4-10.2) mg/dL Magnesium 2.0 (1.6-2.6) mg/dL Total Bilirubin 0.6 (0.0-1.0) mg/dL Direct Bilirubin 0.2 (0.0-0.5) mg/dL AST 25 (5-31) U/L ALT 25 (0-31) U/L Alkaline Phosphatase 81 (39-117) U/L Total Creatine Kinase 103 (26-140) U/L Troponin I High Sens 3.7 (<3.5-17.0) ng/L C-Reactive Protein 13.76 H (< or = 0.50) mg/dL C-React Prot High Sens >20.0 H mg/L Total Protein 7.3 (6.5-8.0) g/dL Albumin 3.2 L (3.5-5.0) g/dL Urine Color Yellow Urine Appearance Clear Urine pH 6.5 (5.0-9.0) Ur Specific [place] 1.015 (1.005-1.025) Urine Protein Negative (Neg-Trace) mg/dL Urine Glucose (UA) 500 H (Negative) mg/dL Urine Ketones Negative (Negative) mg/dL Urine Blood Negative (Negative) Urine Nitrite Negative (Negative) Ur Leukocyte Esterase Negative (Negative) 09/24/24 09/24/24 09/24/24 Range/Units 07:04 12:18 18:08 WBC (4.8-10.8) X10*3/uL RBC (4.20-5.50) X10*6/uL Hgb (12.0-16.0) g/dl Hct (37.0-47.0) % MCV (80.0-98.0) fL MCH (27.0-33.0) pg MCHC (31.0-35.0) g/dl RDW (11.0-16.0) % Plt Count (160-400) X10*3/uL MPV (9.4-12.3) fL Immature Gran % (Auto) (0.0-0.4) % Neut % (Auto) (45-73) % Lymph % (Auto) (20-40) % [place] % (Auto) (2-11) % Eos % (Auto) (0-4) % Baso % (Auto) (0-2) % Lymph # (Auto) (1.2-4.9) X10*3/uL [place] # (Auto) (0.1-1.2) X10*3/uL Eos # (Auto) (0.0-0.4) X10*3/uL Baso # (Auto) (0.0-0.2) X10*3/uL Abs Immat Gran (auto) (0.00-0.03) X10*3/uL Absolute Neuts (auto) (2.0-8.3) x10*3/uL Absolute Nucleated RBC (0.0-0.012) X10*3/uL Nucleated RBC % (auto) (0.0-0.2) /100WBC ESR (0-20) MM/HR Sodium (135-145) mmol/L Potassium (3.3-5.1) mmol/L Chloride (96-108) mmol/L Carbon Dioxide (22-29) mmol/L Anion Gap (12-20) BUN (9-16) mg/dL Creatinine (0.5-1.4) mg/dL Estim Creat Clear Calc Estimated GFR POC Glucose 176 H 184 H 196 H (60-115) mg/dL Random Glucose (60-115) mg/dL Calcium (8.4-10.2) mg/dL Magnesium (1.6-2.6) mg/dL Total Bilirubin (0.0-1.0) mg/dL Direct Bilirubin (0.0-0.5) mg/dL AST (5-31) U/L ALT (0-31) U/L Alkaline Phosphatase (39-117) U/L Total Creatine Kinase (26-140) U/L Troponin I High Sens (<3.5-17.0) ng/L C-Reactive Protein (< or = 0.50) mg/dL C-React Prot High Sens mg/L Total Protein (6.5-8.0) g/dL Albumin (3.5-5.0) g/dL Urine Color Urine Appearance Urine pH (5.0-9.0) Ur Specific [place] (1.005-1.025) Urine Protein (Neg-Trace) mg/dL Urine Glucose (UA) (Negative) mg/dL Urine Ketones (Negative) mg/dL Urine Blood (Negative) Urine Nitrite (Negative) Ur Leukocyte Esterase (Negative) 09/25/24 09/25/24 09/25/24 Range/Units 05:52 07:23 13:03 WBC 7.9 (4.8-10.8) X10*3/uL RBC 4.21 (4.20-5.50) X10*6/uL Hgb 12.1 (12.0-16.0) g/dl Hct 37.5 (37.0-47.0) % MCV 89.1 (80.0-98.0) fL MCH 28.7 (27.0-33.0) pg MCHC 32.3 (31.0-35.0) g/dl RDW 18.0 H (11.0-16.0) % Plt Count 423 H (160-400) X10*3/uL MPV 8.7 L (9.4-12.3) fL Immature Gran % (Auto) (0.0-0.4) % Neut % (Auto) (45-73) % Lymph % (Auto) (20-40) % [place] % (Auto) (2-11) % Eos % (Auto) (0-4) % Baso % (Auto) (0-2) % Lymph # (Auto) (1.2-4.9) X10*3/uL [place] # (Auto) (0.1-1.2) X10*3/uL Eos # (Auto) (0.0-0.4) X10*3/uL Baso # (Auto) (0.0-0.2) X10*3/uL Abs Immat Gran (auto) (0.00-0.03) X10*3/uL Absolute Neuts (auto) (2.0-8.3) x10*3/uL Absolute Nucleated RBC 0.000 (0.0-0.012) X10*3/uL Nucleated RBC % (auto) 0.0 (0.0-0.2) /100WBC ESR (0-20) MM/HR Sodium 133 L (135-145) mmol/L Potassium 4.6 (3.3-5.1) mmol/L Chloride 99 (96-108) mmol/L Carbon Dioxide 23 (22-29) mmol/L Anion Gap 16 (12-20) BUN 16 (9-16) mg/dL Creatinine 0.66 (0.5-1.4) mg/dL Estim Creat Clear Calc 74.4 Estimated GFR > 60 POC Glucose 231 H 177 H (60-115) mg/dL Random Glucose 279 H (60-115) mg/dL Calcium 9.4 (8.4-10.2) mg/dL Magnesium (1.6-2.6) mg/dL Total Bilirubin (0.0-1.0) mg/dL Direct Bilirubin (0.0-0.5) mg/dL AST (5-31) U/L ALT (0-31) U/L Alkaline Phosphatase (39-117) U/L Total Creatine Kinase (26-140) U/L Troponin I High Sens (<3.5-17.0) ng/L C-Reactive Protein (< or = 0.50) mg/dL C-React Prot High Sens mg/L Total Protein (6.5-8.0) g/dL Albumin (3.5-5.0) g/dL Urine Color Urine Appearance Urine pH (5.0-9.0) Ur Specific [place] (1.005-1.025) Urine Protein (Neg-Trace) mg/dL Urine Glucose (UA) (Negative) mg/dL Urine Ketones (Negative) mg/dL Urine Blood (Negative) Urine Nitrite (Negative) Ur Leukocyte Esterase (Negative) 09/25/24 09/25/24 09/26/24 Range/Units 16:32 20:09 07:16 WBC (4.8-10.8) X10*3/uL RBC (4.20-5.50) X10*6/uL Hgb (12.0-16.0) g/dl Hct (37.0-47.0) % MCV (80.0-98.0) fL MCH (27.0-33.0) pg MCHC (31.0-35.0) g/dl RDW (11.0-16.0) % Plt Count (160-400) X10*3/uL MPV (9.4-12.3) fL Immature Gran % (Auto) (0.0-0.4) % Neut % (Auto) (45-73) % Lymph % (Auto) (20-40) % [place] % (Auto) (2-11) % Eos % (Auto) (0-4) % Baso % (Auto) (0-2) % Lymph # (Auto) (1.2-4.9) X10*3/uL [place] # (Auto) (0.1-1.2) X10*3/uL Eos # (Auto) (0.0-0.4) X10*3/uL Baso # (Auto) (0.0-0.2) X10*3/uL Abs Immat Gran (auto) (0.00-0.03) X10*3/uL Absolute Neuts (auto) (2.0-8.3) x10*3/uL Absolute Nucleated RBC (0.0-0.012) X10*3/uL Nucleated RBC % (auto) (0.0-0.2) /100WBC ESR (0-20) MM/HR Sodium (135-145) mmol/L Potassium (3.3-5.1) mmol/L Chloride (96-108) mmol/L Carbon Dioxide (22-29) mmol/L Anion Gap (12-20) BUN (9-16) mg/dL Creatinine (0.5-1.4) mg/dL Estim Creat Clear Calc Estimated GFR POC Glucose 134 H 151 H 202 H (60-115) mg/dL Random Glucose (60-115) mg/dL Calcium (8.4-10.2) mg/dL Magnesium (1.6-2.6) mg/dL Total Bilirubin (0.0-1.0) mg/dL Direct Bilirubin (0.0-0.5) mg/dL AST (5-31) U/L ALT (0-31) U/L Alkaline Phosphatase (39-117) U/L Total Creatine Kinase (26-140) U/L Troponin I High Sens (<3.5-17.0) ng/L C-Reactive Protein (< or = 0.50) mg/dL C-React Prot High Sens mg/L Total Protein (6.5-8.0) g/dL Albumin (3.5-5.0) g/dL Urine Color Urine Appearance Urine pH (5.0-9.0) Ur Specific [place] (1.005-1.025) Urine Protein (Neg-Trace) mg/dL Urine Glucose (UA) (Negative) mg/dL Urine Ketones (Negative) mg/dL Urine Blood (Negative) Urine Nitrite (Negative) Ur Leukocyte Esterase (Negative) Radiology Impression Discussion of test interpretation with radiology: I have reviewed the radiologist's reading. Radiologist Impression: CLINICAL HISTORY: L hip pain s p fall 3 view, pelvis and left hip Comparison: None Findings: The bones are intact. No significant arthritic change. The soft tissues are unremarkable. IMPRESSION: No acute findings. This document has been electronically signed by: Megan Villela MD on 09/23/2024 19:05:20 Dictated By: Megan Villela MD Independent Historian Clinical information obtained from an independent historian. History obtained from or confirmed by: Other (niece ) Discharge Plan Discharge Clinical Impression: Myalgia, Leg weakness, Polymyalgia rheumatica, Unable to ambulate Patient Disposition: Admitted As Inpatient Interventions: Admission Worksheet (ED) Last Done: 09/25/24 22:13 Discharge Date/Time: 09/25/24 23:04
--- NOTE | 2024-09-23 16:52 | ECG_ITS ---
Test Reason : PAIN ALL OVER Blood Pressure : */* mmHG Vent. Rate : 101 BPM Atrial Rate : 101 BPM P-R Int : 118 ms QRS Dur : 62 ms QT Int : 306 ms P-R-T Axes : 43 26 31 degrees QTcB Int : 396 ms Sinus tachycardia Otherwise normal ECG No previous ECGs available Referred By: Diamante Bailey Electronically Signed By: MALKA CHOE MD
[2024-09-23 17:39] LABS: MANUAL DIFF FLAG NO
[2024-09-23] MEDS: Morphine Sulfate 4 MG/ML CARTRIDGE IVPUSH (17:39)
[2024-09-23 17:40] LABS: Basophils Absolute Auto 0.1 X10*3/uL (0.0-0.2); Basophils Percent Auto 0.7 % (0-2); Eosinophils Absolute Auto 0.1 X10*3/uL (0.0-0.4); Hematocrit 40.9 % (37.0-47.0); Hemoglobin 13.3 g/dl (12.0-16.0); Imm Gran Abs Auto 0.09 X10*3/uL (0.00-0.03); Imm Gran Pct Auto 0.8 % (0.0-0.4); Lymphocytes Absolute Auto 2.9 X10*3/uL (1.2-4.9); Mean Corpuscular HGB Conc 32.5 g/dl (31.0-35.0); Mean Corpuscular Hemoglobin 29.2 pg (27.0-33.0); Mean Corpuscular Volume 89.9 fL (80.0-98.0); Mean Platelet Volume 8.6 fL (9.4-12.3); Monocytes Absolute Auto 1.1 X10*3/uL (0.1-1.2); Monocytes Percent Auto 10.5 % (2-11); Neutrophils Absolute Auto 6.4 x10*3/uL (2.0-8.3); Platelet Count 444 X10*3/uL (160-400); Red Blood Count 4.55 X10*6/uL (4.20-5.50); Red Cell Distribution Width 17.7 % (11.0-16.0); White Blood Count 10.7 X10*3/uL (4.8-10.8)
[2024-09-23 17:58] LABS: Alanine Aminotransferase 25 U/L (0-31); Albumin Level 3.2 g/dL (3.5-5.0); Alkaline Phosphatase 81 U/L (39-117); Anion Gap 17 (12-20); Aspartate Amino Transferase 25 U/L (5-31); Bilirubin Direct 0.2 mg/dL (0.0-0.5); Bilirubin Total 0.6 mg/dL (0.0-1.0); Blood Urea Nitrogen 10 mg/dL (9-16); C Reactive Protein 13.76 mg/dL (< or = 0.50); Calcium 8.8 mg/dL (8.4-10.2); Carbon Dioxide 23 mmol/L (22-29); Chloride 99 mmol/L (96-108); Creatinine Clr Calc Pharmacy 74.4; Estimated Glomerular Filt Rate > 60; Glucose Random 143 mg/dL (60-115); Potassium 4.6 mmol/L (3.3-5.1); Sodium 134 mmol/L (135-145); Total Protein 7.3 g/dL (6.5-8.0)
[2024-09-23 18:03] LABS: Troponin-I High Sensitivity 3.7 ng/L (<3.5-17.0)
[2024-09-23 18:34] LABS: Erythrocyte Sedimentation Rate 73 MM/HR (0-20)
[2024-09-23] MEDS: HYDROmorphone HCl 1 MG/ML SYRINGE IVPUSH (18:41)
[2024-09-23 18:43] VITALS: BP 125/75; PULSE 98; RESP 20; O2SAT 98
--- NOTE | 2024-09-23 20:27 | PM.IMHP ---
History of Present Illness Date of Service: 09/23/24 Attending physician on admission: Camron Judd Chief Complaint: weakness, body aches Patient is a 58-year-old Citizen Of [place]-speaking female with a history significant for PMR, idiopathic pulmonary fibrosis, CAD and HLD, who reported to the ED again due to increasing weakness and inability to walk with associated upper extremity and lower extremity joint pain and a recent fall due to left sided weakness. She was recently admitted 2 months ago for a PMR flare, treated with steroids and sent home with outpt rehab. she reports that she was discharged from the rehab 2 weeks ago and was doing well but was not able to do her home exercises this past week due to her pain and weakness. She has an appt with pain management tomorrow at 1pm. She rates the pain at 10/10 very sensitive to touch and extremely painful with movement or pressure, mild now since recieving pain medication. No erythema or warmth of the joints. no LE edema. She reports the pain is specifically in her shoulders, elbows, hips and knees, slighlty more in the L knee from a recent fall due to weakness. This flare feels exactly the same as last time. She denies any recent illness or respiratory difficulties. Review of Systems Constitutional: Constitutional: Reports body ache(s), Denies chills, Denies fatigue, Denies fever(s) and Denies headache(s) Eyes: Eyes: Denies change in vision and Denies photophobia ENT: Denies headache(s), Denies nasal congestion, Denies nasal discharge and Denies sore throat Cardiovascular: Cardiovascular: Denies chest pain, Denies syncope, Denies rapid heart rate, Denies leg edema, Denies lightheadedness and Denies dyspnea Respiratory: Respiratory: Denies chest congestion, Denies cough, Denies dyspnea and Denies wheezing Gastrointestinal: Gastrointestinal: Denies abdominal pain, Denies diarrhea, Denies nausea and Denies vomiting Genitourinary: Genitourinary: Denies hematuria, Denies dysuria and Denies urinary urgency Musculoskeletal: Musculoskeletal: Reports as per HPI and Reports myalgias Integumentary/Breasts: Skin/Breast: Denies rash Neurologic: Denies confusion, Denies syncope and Denies headache(s) Psychiatric: Psychiatric: Denies confusion Endocrine: Endocrine: Denies fatigue Hematologic/Lymphatic: Hematologic/Lymphatic: Denies easy bleeding and Denies easy bruising Allergic/Immunologic: Allergic/Immunologic: Denies wheezing [facility] Medical History (Updated 09/23/24 @ 19:25 by CHANDNI Kearns) CAD (coronary artery disease) Idiopathic pulmonary fibrosis Polymyalgia rheumatica Functional capacity: independent ambulation Social History Unable to assess alcohol history related to: Unknown Patient Tobacco Use Status: Never used Tobacco Advance Directives: No Advance Directives Information Provided: Yes service: No Narrative: Smoking, alcohol or drug use Meds Allergies Allergy/AdvReac Type Severity Reaction Status Date / Time No Known Allergies Allergy Verified 09/23/24 15:35 Home Medications ?Medication ?Instructions ?Recorded ?Confirmed ?Last Taken ?Type aspirin 81 mg tablet,delayed 81 mg PO DAILY 07/31/24 07/31/24 Unknown History release atorvastatin 40 mg tablet 40 mg PO DAILY 07/31/24 07/31/24 Unknown History baclofen 10 mg tablet 10 mg PO BID 07/31/24 07/31/24 Unknown History buspirone 7.5 mg tablet 7.5 mg PO BID 07/31/24 07/31/24 Unknown History isosorbide mononitrate 30 mg 30 mg PO DAILY 07/31/24 07/31/24 Unknown History tablet,extended release 24 hr prazosin 1 mg capsule 1 mg PO BEDTIME 07/31/24 07/31/24 Unknown History trazodone 100 mg tablet 100 mg PO BEDTIME 07/31/24 07/31/24 Unknown History nintedanib 150 mg capsule (Ofev) 150 mg PO BID 08/01/24 08/01/24 Unknown History Physical Exam Vital Signs and Narrative: Vital Signs: Last Vital Signs Temp 97.4 F 09/23/24 15:33 Pulse 98 09/23/24 18:43 Resp 20 09/23/24 18:43 BP 125/75 09/23/24 18:43 Pulse Ox 98 09/23/24 18:43 O2 Del Method Room Air 09/23/24 15:33 BMI result Body Mass Index 23.8 General: AOx3, no acute distress, 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 Motor grossly intact bilaterally. Reflexes symmetrical bilaterally Extremities: No LE edema. No pain with palpation of joints. No significant joint edema or erythema. Psych: Appropriate affect Const: General: No confusion Orientation/consciousness: No confusion Eyes: Direct Ophthalmoscopy: No photophobia Neuro: General: No confusion Results Labs 09/23/24 17:35 09/23/24 17:35 Labs: Laboratory Results - last 24 hr 09/23/24 17:35 MCV 89.9 MCH 29.2 MCHC 32.5 RDW 17.7 H Plt Count 444 H MPV 8.6 L Immature Gran % (Auto) 0.8 H Neut % (Auto) 60.0 Lymph % (Auto) 27.0 [place] % (Auto) 10.5 Eos % (Auto) 1.0 Baso % (Auto) 0.7 Lymph # (Auto) 2.9 [place] # (Auto) 1.1 Eos # (Auto) 0.1 Baso # (Auto) 0.1 Abs Immat Gran (auto) 0.09 H Absolute Neuts (auto) 6.4 Absolute Nucleated RBC 0.000 Nucleated RBC % (auto) 0.0 ESR 73 H Anion Gap 17 Estim Creat Clear Calc 74.4 Estimated GFR > 60 Random Glucose 143 H Calcium 8.8 Magnesium 2.0 Total Bilirubin 0.6 Direct Bilirubin 0.2 AST 25 ALT 25 Alkaline Phosphatase 81 Total Creatine Kinase 103 C-Reactive Protein 13.76 H Total Protein 7.3 Albumin 3.2 L Assessment and Plan (1) Polymyalgia rheumatica: Status: Acute (2) Leg weakness: Status: Acute (3) Myalgia: Status: Acute (4) Unable to ambulate: Status: Acute Plan Patient is a 58-year-old female with a history significant for PMR, idiopathic pulmonary fibrosis, CAD and HLD, who reported to the ED again due to increasing weakness and inability to walk with associated upper extremity and lower extremity joint pain. Workup consistent with PMR flare. Recent fall due to weakness, x-ray negative. PMR flare with bilateral lower extremity weakness and inability to walk - WBC normal, vitals stable, no sepsis. - ESR and CRP significantly elevated - x-rays left hip after fall negative - reflexes symmetrical - patient started on Solu-Medrol 60 mg IV in ED, continue - admit for observation due to pain, weakness and inability to walk - repeat CRP tomorrow with BMP and CBC History elevated blood sugars - add sliding scale insulin due to history of elevated blood sugars with steroids - A1c 6.4 at recent admission CAD/HLD - continue aspirin, statin and isosorbide Idiopathic pulmonary fibrosis - no current medications DNI VTE prophylaxis: Lovenox Patient with PMR flare with associated bilateral lower extremity weakness pain and inability to walk, admission again for observation and IV steroids. Quality Stroke Does the patient have a stroke diagnosis?: No VTE Prior VTE?: No VTE Risk Level:: Medical - moderate - high VTE Device Contraindication: Treatment Not Indicated VTE Drug Contraindication: N/A - Med Ordered
[2024-09-23 20:38] VITALS: BP 124/76; PULSE 94; RESP 20; TEMP 36.5; O2SAT 97
[2024-09-23] MEDS: methylPREDNISolone Sod Succ 125 MG/2 ML VIAL 60 MG IVPUSH (20:47)
[2024-09-23 22:34] VITALS: BP 113/80; PULSE 104; RESP 18; TEMP 36.9; O2SAT 97
[2024-09-24] VITALS (7 sets, daily range): BP systolic 103–118; BP diastolic 69–82; PULSE 112–118; RESP 16–20; TEMP 36.4–37.8; O2SAT 94–97
[2024-09-24] MEDS: Enoxaparin Sodium 40 MG/0.4 ML SYRINGE SUBCUT ×2 (00:04→20:55)
[2024-09-24] MEDS: Morphine Sulfate 4 MG/ML CARTRIDGE IVPUSH ×3 (00:10→12:26)
[2024-09-24 04:33] LABS: Hematocrit 40.1 % (37.0-47.0); Hemoglobin 13.1 g/dl (12.0-16.0); Mean Corpuscular HGB Conc 32.7 g/dl (31.0-35.0); Mean Corpuscular Hemoglobin 29.2 pg (27.0-33.0); Mean Corpuscular Volume 89.5 fL (80.0-98.0); Mean Platelet Volume 8.7 fL (9.4-12.3); Platelet Count 465 X10*3/uL (160-400); Red Blood Count 4.48 X10*6/uL (4.20-5.50); Red Cell Distribution Width 17.8 % (11.0-16.0); White Blood Count 10.2 X10*3/uL (4.8-10.8)
[2024-09-24 04:53] LABS: Anion Gap 16 (12-20); Blood Urea Nitrogen 11 mg/dL (9-16); Calcium 9.6 mg/dL (8.4-10.2); Carbon Dioxide 22 mmol/L (22-29); Chloride 97 mmol/L (96-108); Creatinine Clr Calc Pharmacy 72.2; Estimated Glomerular Filt Rate > 60; Glucose Random 254 mg/dL (60-115); Potassium 4.9 mmol/L (3.3-5.1); Sodium 130 mmol/L (135-145)
[2024-09-24 05:39] LABS: Appearance Urine Clear; Color Urine Yellow; Glucose Urine UA 500 mg/dL (Negative); Leukocyte Esterase Urine Negative (Negative); Nitrite Urine Negative (Negative); PH 6.5 (5.0-9.0); Specific Gravity - Urine 1.015 (1.005-1.025); Urine Blood Negative (Negative); Urine Ketones Negative (Negative); Urine Protein Negative (Neg-Trace)
[2024-09-24 07:08] LABS: Glucose, Whole Blood 176 mg/dL (60-115)
[2024-09-24] MEDS: 0.9 % Sodium Chloride Flush 3 ML SYRINGE IVFLUSH ×3 (07:44→20:55)
[2024-09-24] MEDS: Insulin Lispro 100 UNIT/ML 3 ML VIAL SUBCUT ×3 (07:45→18:27)
--- NOTE | 2024-09-24 08:20 | PHA.MEDREC ---
Pharmacy Consult ? Medication Reconciliation Pharmacy has completed the medication reconciliation. Spoke with patient through an financial compliance manager. She is no longer taking baby aspirin, says her doctor took her off. She confirmed prednisone is once daily, said she avoids taking it with trazodone. She reports she last took her medications yesterday morning.
--- NOTE | 2024-09-24 09:59 | P.PNIM_ITS ---
Subjective Subjective Date of Service: 09/24/24 Review of Systems Follow up PMR flare neuropathic pain to limbs Physical Exam 2 Vital Signs: Vital Signs: Last Vital Signs Temp 97.6 F 09/24/24 09:54 Pulse 113 H 09/24/24 09:54 Resp 16 09/24/24 09:54 BP 114/81 09/24/24 09:54 Pulse Ox 96 09/24/24 09:54 O2 Del Method Room Air 09/24/24 09:54 BMI result Body Mass Index 23.8 Appearing in no acute distress lung sounds are clear to auscultation heart regular rate rhythm, clear S1, S2 positive bowel sounds, abdomen is soft, nontender neuro patient is alert x3, no focal deficits Objective Data Active Medications Acetaminophen (Acetaminophen 325 Mg Tablet) 975 mg PO Q6H PRN PRN Reason: Pain, Mild 1-3,fever,headache Calcium Carbonate (Calcium Carbonate 750 Mg Tab.Chew) 750 mg PO Q4H PRN PRN Reason: Heartburn Dextrose (Dextrose 50 % 25 Gm/50 Ml Syringe) 25 gm IVPUSH Q15M PRN; Protocol PRN Reason: per Hypoglycemia Standing Ord. Enoxaparin Sodium (Enoxaparin Sodium 40 Mg/0.4 Ml Syringe) 40 mg SUBCUT Q24H [facility] Last Admin: 09/24/24 00:04 Dose: 40 mg Documented By: STEPHANY Glucose (Glucose Gel 15 Gm Gel..Gram.) 15 gm PO Q15M PRN; Protocol PRN Reason: per Hypoglycemia Standing Ord. Insulin Human Lispro (Insulin Lispro 100 Unit/Ml 3 Ml Vial) 0 unit SUBCUT QIDACHS [facility]; Protocol Last Admin: 09/24/24 07:45 Dose: 2 unit Documented By: SCOTT Magnesium Hydroxide (Milk Of Magnesia 30 Ml Oral.Susp) 30 ml PO DAILY PRN PRN Reason: Constipation Melatonin (Melatonin 3 Mg Tablet) 6 mg PO BEDTIME PRN PRN Reason: Insomnia Methylprednisolone Sodium Succinate (Methylprednisolone Sod Succ 125 Mg/2 Ml Vial) 60 mg IVPUSH Q24H [facility] Morphine Sulfate (Morphine Sulfate 4 Mg/Ml Cartridge) 4 mg IVPUSH Q4H PRN; Protocol PRN Reason: Pain, Severe (Pain Scale 7-10) Last Admin: 09/24/24 05:14 Dose: 4 mg Documented By: HO.CLEMOJ Ondansetron HCl (Ondansetron Hcl 4 Mg/2 Ml Vial) 4 mg IVPUSH Q8H PRN PRN Reason: Nausea and Vomiting Oxycodone HCl (Oxycodone Hcl Immed Release 5 Mg Tablet) 5 mg PO Q6H PRN PRN Reason: Pain, Moderate(Pain Scale 4-6) Polyethylene Glycol (Polyethylene Glycol 3350 17 Gm Powd.Pack) 17 gm PO DAILY PRN PRN Reason: Constipation Sodium Chloride (0.9 % Sodium Chloride Flush 3 Ml Syringe) [facility] Last Admin: 09/24/24 07:44 Dose: 3 ml Documented By: SCOTT Labs 09/24/24 04:20 09/24/24 04:20 Labs: Laboratory Results - last 24 hr 09/23/24 09/24/24 09/24/24 17:35 04:20 05:28 MCV 89.9 89.5 MCH 29.2 29.2 MCHC 32.5 32.7 RDW 17.7 H 17.8 H Plt Count 444 H 465 H MPV 8.6 L 8.7 L Immature Gran % (Auto) 0.8 H Neut % (Auto) 60.0 Lymph % (Auto) 27.0 [place] % (Auto) 10.5 Eos % (Auto) 1.0 Baso % (Auto) 0.7 Lymph # (Auto) 2.9 [place] # (Auto) 1.1 Eos # (Auto) 0.1 Baso # (Auto) 0.1 Abs Immat Gran (auto) 0.09 H Absolute Neuts (auto) 6.4 Absolute Nucleated RBC 0.000 0.000 Nucleated RBC % (auto) 0.0 0.0 ESR 73 H Anion Gap 17 16 Estim Creat Clear Calc 74.4 72.2 Estimated GFR > 60 > 60 POC Glucose Random Glucose 143 H 254 H Calcium 8.8 9.6 D Magnesium 2.0 Total Bilirubin 0.6 Direct Bilirubin 0.2 AST 25 ALT 25 Alkaline Phosphatase 81 Total Creatine Kinase 103 C-Reactive Protein 13.76 H Total Protein 7.3 Albumin 3.2 L Urine Color Yellow Urine Appearance Clear Urine pH 6.5 Ur Specific [place] 1.015 Urine Protein Negative Urine Glucose (UA) 500 H Urine Ketones Negative Urine Blood Negative Urine Nitrite Negative Ur Leukocyte Esterase Negative 09/24/24 07:04 MCV MCH MCHC RDW Plt Count MPV Immature Gran % (Auto) Neut % (Auto) Lymph % (Auto) [place] % (Auto) Eos % (Auto) Baso % (Auto) Lymph # (Auto) [place] # (Auto) Eos # (Auto) Baso # (Auto) Abs Immat Gran (auto) Absolute Neuts (auto) Absolute Nucleated RBC Nucleated RBC % (auto) ESR Anion Gap Estim Creat Clear Calc Estimated GFR POC Glucose 176 H Random Glucose Calcium Magnesium Total Bilirubin Direct Bilirubin AST ALT Alkaline Phosphatase Total Creatine Kinase C-Reactive Protein Total Protein Albumin Urine Color Urine Appearance Urine pH Ur Specific [place] Urine Protein Urine Glucose (UA) Urine Ketones Urine Blood Urine Nitrite Ur Leukocyte Esterase Assessment and Plan (1) Polymyalgia rheumatica: Status: Acute Plan Patient is a 58-year-old female with a history significant for PMR, idiopathic pulmonary fibrosis, CAD and HLD, who reported to the ED again due to increasing weakness and inability to walk with associated upper extremity and lower extremity joint pain. Workup consistent with PMR flare. Recent fall due to weakness, x-ray negative. PMR flare with bilateral lower extremity weakness and inability to walk no sepsis. ESR and CRP significantly elevated x-rays left hip after fall negative reflexes symmetrical continue Solu-Medrol 60 mg IV admit for observation due to pain, weakness and inability to walk History elevated blood sugars add sliding scale insulin due to history of elevated blood sugars with steroids A1c 6.4 at recent admission CAD/HLD continue aspirin, statin and isosorbide Idiopathic pulmonary fibrosis no current medications DNI VTE prophylaxis: Lovenox Patient with PMR flare with associated bilateral lower extremity weakness pain and inability to walk, admission again for observation and IV steroids. Quality Stroke Does the patient have a stroke diagnosis?: No VTE Prior VTE?: No VTE Risk Level:: Medical - moderate - high VTE Device Contraindication: Treatment Not Indicated VTE Drug Contraindication: N/A - Med Ordered
--- NOTE | 2024-09-24 11:50 | MHC.CM.PN ---
VALUER MET WITH PT IN ED WITH [facility] PT LIVES IN APT WITH FAMILY PT RECEIVES NO SERVICES PT USES A WALKER PT PCP Lex Rich MD PT'S INS CCN, IMM DELIVERED DCP- HOME WITH SERVICES VS HOME SELF CARE. NIECE TO TRANSPORT
[2024-09-24 12:23] LABS: Glucose, Whole Blood 184 mg/dL (60-115)
[2024-09-24 18:11] LABS: Glucose, Whole Blood 196 mg/dL (60-115)
[2024-09-24] MEDS: Baclofen 10 MG TABLET PO ×2 (18:27→20:55)
[2024-09-24] MEDS: busPIRone HCl 5 MG TABLET 7.5 MG PO (20:02)
[2024-09-24] MEDS: traZODone HCL 100 MG TABLET PO (20:02)
[2024-09-24] MEDS: methylPREDNISolone Sod Succ 125 MG/2 ML VIAL 60 MG IVPUSH (20:02)
[2024-09-24] MEDS: NINTEDANIB 150 MG 150 EACH PO (20:56)
[2024-09-24] MEDS: Prazosin HCL 1 MG CAPSULE PO (20:56)
[2024-09-25] VITALS (8 sets, daily range): BP systolic 105–123; BP diastolic 60–76; PULSE 101–111; RESP 16–20; TEMP 36–36.8; O2SAT 96–98; BMI 24.5
[2024-09-25] MEDS: oxyCODONE HCl Immed Release 5 MG TABLET PO (00:44)
--- NOTE | 2024-09-25 00:46 | PC.NURSE ---
Patient is alert and oriented x3, [place] Speaking only. VSS. Patient complaints of 6/10 pain in bilateral lower legs. Patient medicated with Oxycodone 5 mg PO, effect pending. Patient states she is unable to ambulate, patent requires 1 assist for pivot transfers to bedside commode. 20 G IV line in L AC is patent. Patient is no acute distress, resting on stretcher bed, call jeronimo in patient's reach.
--- NOTE | 2024-09-25 01:57 | PC.NURSE ---
Patient reports some improvement in bilateral lower legs pain-from 6/10 to 3/10 after administration of Oxycodone 5 mg PO.
[2024-09-25 06:04] LABS: Hematocrit 37.5 % (37.0-47.0); Hemoglobin 12.1 g/dl (12.0-16.0); Mean Corpuscular HGB Conc 32.3 g/dl (31.0-35.0); Mean Corpuscular Hemoglobin 28.7 pg (27.0-33.0); Mean Corpuscular Volume 89.1 fL (80.0-98.0); Mean Platelet Volume 8.7 fL (9.4-12.3); Platelet Count 423 X10*3/uL (160-400); Red Blood Count 4.21 X10*6/uL (4.20-5.50); White Blood Count 7.9 X10*3/uL (4.8-10.8)
[2024-09-25 06:21] LABS: Anion Gap 16 (12-20); Blood Urea Nitrogen 16 mg/dL (9-16); Calcium 9.4 mg/dL (8.4-10.2); Carbon Dioxide 23 mmol/L (22-29); Chloride 99 mmol/L (96-108); Creatinine Clr Calc Pharmacy 74.4; Estimated Glomerular Filt Rate > 60; Glucose Random 279 mg/dL (60-115); Potassium 4.6 mmol/L (3.3-5.1); Sodium 133 mmol/L (135-145)
[2024-09-25 07:30] LABS: Glucose, Whole Blood 231 mg/dL (60-115)
[2024-09-25] MEDS: Isosorbide Mononitrate 30 MG TAB.ER.24H PO (08:05)
[2024-09-25] MEDS: Atorvastatin Calcium 40 MG TABLET PO (08:05)
[2024-09-25] MEDS: Cyanocobalamin (Vitamin B-12) 1,000 MCG TABLET 1000 MCG PO (08:05)
[2024-09-25] MEDS: Baclofen 10 MG TABLET PO ×3 (08:05→20:36)
[2024-09-25] MEDS: Cholecalciferol (Vitamin D3) 25 MCG TABLET PO (08:06)
[2024-09-25] MEDS: busPIRone HCl 5 MG TABLET 7.5 MG PO ×2 (08:06→20:36)
[2024-09-25] MEDS: Insulin Lispro 100 UNIT/ML 3 ML VIAL SUBCUT ×3 (08:07→20:35)
[2024-09-25] MEDS: 0.9 % Sodium Chloride Flush 3 ML SYRINGE IVFLUSH ×3 (08:07→23:01)
[2024-09-25] MEDS: NINTEDANIB 150 MG 150 EACH PO ×2 (09:09→20:36)
--- NOTE | 2024-09-25 10:38 | P.PNIM_ITS ---
Subjective Subjective Date of Service: 09/25/24 Review of Systems Follow up PMR flare neuropathic pain to limbs Physical Exam 2 Vital Signs: Vital Signs: Last Vital Signs Temp 98.3 F 09/25/24 05:49 Pulse 110 H 09/25/24 05:49 Resp 16 09/25/24 05:49 BP 120/76 09/25/24 08:05 Pulse Ox 97 09/25/24 05:49 O2 Del Method Room Air 09/25/24 05:49 BMI result Body Mass Index 23.8 Appearing in no acute distress lung sounds are clear to auscultation heart regular rate rhythm, clear S1, S2 positive bowel sounds, abdomen is soft, nontender neuro patient is alert x3, no focal deficits Objective Data Active Medications Acetaminophen (Acetaminophen 325 Mg Tablet) 975 mg PO Q6H PRN PRN Reason: Pain, Mild 1-3,fever,headache Atorvastatin Calcium (Atorvastatin Calcium 40 Mg Tablet) 40 mg PO DAILY [facility] Last Admin: 09/25/24 08:05 Dose: 40 mg Documented By: KIMBERLY Baclofen (Baclofen 10 Mg Tablet) 10 mg PO TID [facility] Last Admin: 09/25/24 08:05 Dose: 10 mg Documented By: KIMBERLY Buspirone HCl (Buspirone Hcl 5 Mg Tablet) 7.5 mg PO BID [facility] Last Admin: 09/25/24 08:06 Dose: 7.5 mg Documented By: KIMBERLY Calcium Carbonate (Calcium Carbonate 750 Mg Tab.Chew) 750 mg PO Q4H PRN PRN Reason: Heartburn Cyanocobalamin (Cyanocobalamin (Vitamin B-12) 1,000 Mcg Tablet) 1,000 mcg PO DAILY [facility] Last Admin: 09/25/24 08:05 Dose: 1,000 mcg Documented By: KIMBERLY Dextrose (Dextrose 50 % 25 Gm/50 Ml Syringe) 25 gm IVPUSH Q15M PRN; Protocol PRN Reason: per Hypoglycemia Standing Ord. Enoxaparin Sodium (Enoxaparin Sodium 40 Mg/0.4 Ml Syringe) 40 mg SUBCUT Q24H [facility] Last Admin: 09/24/24 20:55 Dose: 40 mg Documented By: ABLIAKwabena Glucose (Glucose Gel 15 Gm Gel..Gram.) 15 gm PO Q15M PRN; Protocol PRN Reason: per Hypoglycemia Standing Ord. Insulin Human Lispro (Insulin Lispro 100 Unit/Ml 3 Ml Vial) 0 unit SUBCUT QIDACHS [facility]; Protocol Last Admin: 09/25/24 08:07 Dose: 4 unit Documented By: KIMBERLY Isosorbide Mononitrate (Isosorbide Mononitrate 30 Mg Tab.Er.24h) 30 mg PO DAILY [facility]; Protocol Last Admin: 09/25/24 08:05 Dose: 30 mg Documented By: KIMBERLY Magnesium Hydroxide (Milk Of Magnesia 30 Ml Oral.Susp) 30 ml PO DAILY PRN PRN Reason: Constipation Melatonin (Melatonin 3 Mg Tablet) 6 mg PO BEDTIME PRN PRN Reason: Insomnia Methylprednisolone Sodium Succinate (Methylprednisolone Sod Succ 125 Mg/2 Ml Vial) 60 mg IVPUSH Q24H [facility] Last Admin: 09/24/24 20:02 Dose: 60 mg Documented By: KYRA Morphine Sulfate (Morphine Sulfate 4 Mg/Ml Cartridge) 4 mg IVPUSH Q4H PRN; Protocol PRN Reason: Pain, Severe (Pain Scale 7-10) Last Admin: 09/24/24 12:26 Dose: 4 mg Documented By: KYRA Pt Own (Nintedanib [ Ofev] 150 Mg Capsule ) 150 mg PO BID [facility] Last Admin: 09/25/24 09:09 Dose: 150 mg Documented By: KIMBERLY Ondansetron HCl (Ondansetron Hcl 4 Mg/2 Ml Vial) 4 mg IVPUSH Q8H PRN PRN Reason: Nausea and Vomiting Oxycodone HCl (Oxycodone Hcl Immed Release 5 Mg Tablet) 5 mg PO Q6H PRN PRN Reason: Pain, Moderate(Pain Scale 4-6) Last Admin: 09/25/24 00:44 Dose: 5 mg Documented By: SUSANA Polyethylene Glycol (Polyethylene Glycol 3350 17 Gm Powd.Pack) 17 gm PO DAILY PRN PRN Reason: Constipation Prazosin HCl (Prazosin Hcl 1 Mg Capsule) 1 mg PO BEDTIME [facility]; Protocol Last Admin: 09/24/24 20:56 Dose: 1 mg Documented By: KYRA Sodium Chloride (0.9 % Sodium Chloride Flush 3 Ml Syringe) 3 ml IVFLUSH QSHIFT [facility] Last Admin: 09/25/24 08:07 Dose: 3 ml Documented By: KIMBERLY Trazodone HCl (Trazodone Hcl 100 Mg Tablet) 100 mg PO BEDTIME [facility] Last Admin: 09/24/24 20:02 Dose: 100 mg Documented By: KYRA Vitamin D (Cholecalciferol (Vitamin D3) 25 Mcg Tablet) 25 mcg PO DAILY [facility] Last Admin: 09/25/24 08:06 Dose: 25 mcg Documented By: KIMBERLY Labs 09/25/24 05:52 09/25/24 05:52 Labs: Laboratory Results - last 24 hr 09/24/24 09/24/24 09/25/24 12:18 18:08 05:52 MCV 89.1 MCH 28.7 MCHC 32.3 RDW 18.0 H Plt Count 423 H MPV 8.7 L Absolute Nucleated RBC 0.000 Nucleated RBC % (auto) 0.0 Anion Gap 16 Estim Creat Clear Calc 74.4 Estimated GFR > 60 POC Glucose 184 H 196 H Random Glucose 279 H Calcium 9.4 09/25/24 07:23 MCV MCH MCHC RDW Plt Count MPV Absolute Nucleated RBC Nucleated RBC % (auto) Anion Gap Estim Creat Clear Calc Estimated GFR POC Glucose 231 H Random Glucose Calcium Assessment and Plan (1) Polymyalgia rheumatica: Status: Acute Plan Patient is a 58-year-old female with a history significant for PMR, idiopathic pulmonary fibrosis, CAD and HLD, who reported to the ED again due to increasing weakness and inability to walk with associated upper extremity and lower extremity joint pain. Workup consistent with PMR flare. Recent fall due to weakness, x-ray negative. PMR flare with bilateral lower extremity weakness and inability to walk no sepsis. ESR and CRP significantly elevated x-rays left hip after fall negative reflexes symmetrical continue Solu-Medrol 60 mg IV admit for observation due to pain, weakness and inability to walk PT rec STR History elevated blood sugars add sliding scale insulin due to history of elevated blood sugars with steroids A1c 6.4 at recent admission CAD/HLD continue aspirin, statin and isosorbide Idiopathic pulmonary fibrosis no current medications DNI VTE prophylaxis: Lovenox Patient with PMR flare with associated bilateral lower extremity weakness pain and inability to walk, admission again for observation and IV steroids. Quality Stroke Does the patient have a stroke diagnosis?: No VTE Prior VTE?: No VTE Risk Level:: Medical - moderate - high VTE Device Contraindication: Treatment Not Indicated VTE Drug Contraindication: N/A - Med Ordered
--- OUTSIDE RECORDS SUMMARY | 2024-09-25 12:53 | XMS_ITS | Encounter Summary ---
Author Organization [employer] Private Address [address] [facility] [facility] [address] [place] [address] Care Team Providers Care Wine Consultant Name Role Phone Unavailable Primary Care Provider Unavailabl e Reason for Visit * Reason Onset Date Comments New Patient 04/12/2023 Encounter Details Date Type Department Care Team (Late st Contact Info) Description 04/12/2023 Telephone [facility] [address] [place] [address] Oumar Chen MD [address] [place], [place] [phone] New Patient Social History Tobacco Use Types Packs/Day Years Used Date Smoking Tobacco: Never Assessed Comments Unknown Sex and Gender Information Value Date Recorded Sex Assigned at Not on file Legal Sex Female 2:37 PM EST Gender Identity Female 06/24/2022 2:41 PM EST Sexual Orientation Not on file documented as of this encounter Miscellaneous Notes * Telephone Encounter - Debra Day - 04/12/2023 12:53 PM EDT Tc to pt, to offer Banking Center Manager appt, No answer answer, could not leave voicemail due to not being set up . documented in this encounter Plan of Treatment Not on file documented as of this encounter Visit Diagnoses Not on filedocumented in this encounter
--- OUTSIDE RECORDS SUMMARY | 2024-09-25 12:53 | XMS_ITS | Encounter Summary ---
Author Organization [facility] Address [address] [place] [address] Care Team Providers Care Piano Technician Name Role Phone Lex Rich MD Primary Care Pr ovider Encounter Details Date Type Department Care Team (Late Contact Info) Description 08/07/2024 Telephone Adult Medicine [address] [phone] Alex Hernández LPN Social History Tobacco Use [...] Description 10/23/2024 11:00 AM EDT Office Visit [facility] [address] [phone] Aysha Hernandez MD [address] [facility] [address] [place] [address] 11/22/2024 12:45 PM EDT Office Visit Adult Medicine [address], [place] [phone] Lex Rich MD [address] [place] [address] 03/13/2025 11:10 AM EDT Appointment Radiology Department - [address] [phone] documented as of this encounter Visit Diagnoses Not on filedocumented in this encounter Care Teams Piano Technician Relationship Specialty Start Date End Date Lex Rich MD [address] [place] [address] PCP - General Internal Medicine 05/24/24 documented as of this encounter
--- OUTSIDE RECORDS SUMMARY | 2024-09-25 12:53 | XMS_ITS | Clinical Summary ---
Author Organization [facility] [employer] Address [address] [place] [address] Phone Care Team Providers Care Professor Of Law Name Role Phone Lex Rich MD Primary [...] incisional pain. 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 in regards to her pulmonary [...] - 09/20/2024 11:59 PM EST Hospital Encounter [facility] CT Scan [address] [place] [phone] ILD (interstitial lung disease) ([facility] Discharge Disposition: Home or Self Care 09/19/2024 Billing Patient Not Present Adult Medicine [address] [phone] Emilia Wyman MA [facility] [address] [phone] Aysha Hernandez MD Medication Problem 08/23/2024 11:00 AM EST Office Visit [address] [phone] Aysha Hernandez MD ILD (interstitial lung disease) ([facility]) (Primary Dx); Rheumatoid factor positive 08/23/2024 Telephone Adult Medicine [address] [phone] Xiao Cook LPN Fitting for DME 08/22/2024 11:00 AM EST Office Visit Adult [address] [phone] Christianne Vidales PA Hospital discharge follow-up (Primary Dx); PMR (polymyalgia rheumatica) ([facility]); Leg swelling; Venous insufficiency 08/07/2024 Telephone Adult Medicine [address] [phone] Alex Hernández LPN 08/03/2024 Telephone Adult Medicine [address] [phone] Lex Rich MD VNA ([place] ) 08/03/[address] [phone] Aysha Hernandez MD 08/03/2024 Telephone Adult Medicine [place] [address] [phone] Alex Hernández LPN vna 07/27/2024 2:13 PM EST - 07/27/2024 11:59 PM EST Hospital Encounter [address] [phone] Left hip pain Discharge Disposition: Home or Self Care 07/27/2024 1:00 PM EST Office Visit Adult Medicine [address] [phone] Lex Rich MD Polymyalgia rheumatica (CMS/HCC) (Primary Dx); Myalgia; Prediabetes; Positive MADY (antinuclear antibody); Subclinical hyperthyroidism; Elevated rheumatoid factor; Left hip pain; Elevated erythrocyte sedimentation rate; Elevated C-reactive protein (CRP) 07/17/2024 Telephone Adult Medicine [address] [phone] Lex Rich MD vna 07/12/2024 8:45 AM EST Office Visit Adult Medicine [address] [phone] Lex Rich MD Polymyalgia rheumatica (CMS/HCC) (Primary Dx); Myalgia; Hyponatremia; Encounter for hepatitis C screening test for low risk patient 07/06/2024 Telephone Adult Medicine [address] [phone] Lex Rich MD Leg Pain from Last [...] SURGERY CARDIAC CATHETERIZATION DONE ON 04/24/2024 AT [facility] INDICATIONS CHEST PAIN Medical History [...] Description 10/23/2024 11:00 AM EDT [facility] [address] [place] [phone] Aysha Hernandez MD [address] [place] [address] 11/22/2024 12:45 PM EDT Office Visit Adult Medicine [address] [phone] Lex Rich MD [address] [place] [address] 03/13/2025 11:10 AM EDT Appointment Radiology Department - [address] [phone] Health Maintenance Due Date Last Done Comments [...] Priority Date/Time Associated Diagnosis Comments CT CHEST WO CONTRAST Routine 09/20/2024 1:11 PM EST ILD (interstitial lung disease) (CMS/HCC) XR HIP 2-3 VIEWS LEFT Routine 07/27/2024 [...] A1C Routine 07/12/2024 10:05 AM EST Myalgia [id number], RSV, FLU A AND B QUALITATIVE RT-PCR, LOCAL REFERENCE LAB Routine 07/12/2024 9:57 AM EST Myalgia SCREENING MAMMOGRAPHY BI 2-VIEW BREAST INC CAD Routine 03/05/2024 1:29 PM EDT Encounter for other screening for malignant neoplasm of breast LIPID PANEL Routine 01/04/2024 HM COLONOSCOPY Routine 09/21/2023 from Last 3 Months or Most Recently Relevant to Health Maintenance Results * CT Chest wo Contrast (09/20/2024 1:11 PM EST) Anatomical Region Laterality Modality Body Computed Tomogra phy 09/24/2024 3:37 PM EST Impressions 09/24/2024 3:52 PM EST Peripheral and basilar predominant interstitial fibrosis. ??No honeycombing. -------- FINAL REPORT -------- Dictated By: Mike Valentine Dictated Date: 09/24/2024 15:37 ET Assigned Physician: Mike Valentine Reviewed and Electronically Signed By: Mike Valentine Signed Date: 09/24/2024 15:52 ET Workstation ID: [id number] Transcribed By: Self Edit Transcribed Date: 09/24/2024 15:37 ET Narrative 09/24/2024 3:52 PM EST PROCEDURE: CT of the chest without intravenous contrast. TECHNIQUE: CT of the chest without intravenous contrast administration. ??Coronal and sagittal reformats and MIP reconstructions were created. Dose length product: ??305 mGy-cm. HISTORY: Interstitial lung disease COMPARISON: Radiographs dated 01/04/2024. FINDINGS: Lungs/pleura: The central airways are clear. ??There is peripheral and basilar reticulation and architectural distortion, with there is mild traction bronchiectasis and groundglass opacities at the posterior costophrenic angles. ??Linear staple line along the lateral periphery of the lower right lung suggestive of a biopsy site. ??No pleural effusion. ??No pneumothorax. ??No suspicious pulmonary nodule or mass. Mediastinum/coy: No mediastinal mass or lymphadenopathy. ??No appreciable hilar lymphadenopathy on limited noncontrast evaluation. Vasculature: Normal caliber pulmonary arteries. ??Mild atherosclerotic calcifications of the aorta and great vessels. Cardiac: Normal heart size. ??No coronary artery calcification. Chest wall: No axillary or supraclavicular lymphadenopathy. Limited abdomen: Unremarkable. Bones: Mild degenerative changes of the shoulders and spine. Procedure Note Mike Valentine MD - 09/24/2024 PROCEDURE: CT of the chest without intravenous contrast. TECHNIQUE: CT of the chest without intravenous contrast administration.Coronal and sagittal reformats and MIP reconstructions were created. Dose length product: 305 mGy-cm. HISTORY: Interstitial lung disease COMPARISON: Radiographs dated 01/04/2024. FINDINGS: Lungs/pleura: The central airways are clear. There is peripheral andbasilar reticulation and architectural distortion, with there is mildtraction bronchiectasis and groundglass opacities at the posteriorcostophrenic angles. Linear staple line along the lateral periphery ofthe lower right lung suggestive of a biopsy site. No pleural effusion.No pneumothorax. No suspicious pulmonary nodule or mass. Mediastinum/coy: No mediastinal mass or lymphadenopathy. No appreciablehilar lymphadenopathy on limited noncontrast evaluation. Vasculature: Normal caliber pulmonary arteries. Mild atheroscleroticcalcifications of the aorta and great vessels. Cardiac: Normal heart size. No coronary artery calcification. Chest wall: No axillary or supraclavicular lymphadenopathy. Limited abdomen: Unremarkable. Bones: Mild degenerative changes of the shoulders and spine. IMPRESSION: Peripheral and basilar predominant interstitial fibrosis. Nohoneycombing. -------- FINAL REPORT -------- Dictated By: Mike Valentine Dictated Date: 09/24/2024 15:37 ET Assigned Physician: Mike Valentine Reviewed and Electronically Signed By: Mike Valentine Signed Date: 09/24/2024 15:52 ET Workstation ID: [id number] Transcribed By: Self Edit Transcribed Date: 09/24/2024 15:37 ET us Aysha Hernandez MD IMG CT PROCEDURES Final Result * XR Hip 2-3 Views Left (07/27/2024 [...] Signed Date: 07/27/2024 16:53 ET Workstation ID: [id number] Transcribed By: Self Edit Transcribed Date: 07/27/2024 [...] Signed Date: 07/27/2024 16:53 ET Workstation ID: [id number] Transcribed By: Self Edit Transcribed Date: 07/27/2024 16:52 ET Lex Rich MD IMG XR PROCEDURE S Final Result * Thyroid stimulating hormone with reflex to free t4 and free t3 (07/27/2024 2:07 PM EST) Only the most recent of2 resultswithin the time period is included. TSH 0.70 0.40 - 4.00 mcIU/mL LAB CHEMISTRY METHOD 07/27/2024 4:51 PM EST [facility] Blood Venous blood specimen / Unknown Venipuncture / Unknown 07/27/2024 2:07 PM EST 07/27/2024 2:07 PM EST Lex Rich MD LAB BLOOD ORDERA BLES Final Result [facility] [address] [place] [address], * Thyroglobulin and thyroglobulin antibody panel (07/27/2024 2:07 PM EST) Pathologist [facility] Thyroglobulin Antibody <2 <4 IU/mL 07/30/2024 11:27 PM EST [facility] Thyroglobulin 4.4 SeeBelow ng/mL 07/30/2024 11:27 PM EST [facility] Comment: Thyroglobulin Reference Range: Intact thyroid: 1.6-50.0 ng/mL Athyrotic, post-thyroidectomy (tumor marker): <0.1 ng/mL Thyroglobulin antibodies can interfere with the determination of thyroglobulin. If the specimen contains thyroglobulin antibodies, please interpret the thyroglobulin result with caution. The Attune Live DXI chemiluminescent immunoassay is used. Results obtained with different assay methods or kits cannot be used interchangeably. Results cannot be interpreted as absolute evidence of the presence or absence of malignant disease. Test performed at [facility], [address], [place] ??[address] ? [phone] Candi Hardin MD, PhD - Identification Clerk Blood Venous blood specimen / Unknown Venipuncture / Unknown 07/27/2024 2:07 PM EST 07/27/2024 2:07 PM EST Lex Rich MD LAB BLOOD ORDERA BLES Final Result [facility] [address] [place] [address] * Thyroid peroxidase antibody (07/27/2024 2:07 PM EST) Pathologist [facility] Thyroid Peroxidase Ab 38.0 <=60.0 I Unit/mL LAB CHEMISTRY METHOD 07/27/2024 6:05 PM EST [facility] Blood Venous blood specimen / Unknown Venipuncture / Unknown 07/27/2024 2:07 PM EST 07/27/2024 2:07 PM EST Lex Rich MD LAB BLOOD ORDERA BLES Final Result Performing Organization Address City/[facility]/ZIP Co de Phone Number [facility] [address] [place] [address], [place] [phone] * Anti-scleroderma antibody (07/27/2024 2:07 PM EST) [facility] Scleroderma SCL - 70 Negative Negative LAB CHEMISTRY METHOD 07/29/2024 1:14 PM EST [facility] Blood Venous blood specimen / Unknown Venipuncture / Unknown 07/27/2024 2:07 PM EST 07/27/2024 2:07 PM EST Lex Rich MD LAB BLOOD ORDERA BLES Final Result Performing Organization Address City/[facility]/ZIP Co de Phone Number [facility] [address] [place] [address], [place] [phone] * (ABNORMAL) Sedimentation rate (07/27/2024 2:07 PM EST) Only the most recent of2 resultswithin the time period is included. Pathologist [facility] Sed Rate 44(H) 0 - 30 mm/hr LAB HEMETOLOGY METHOD 07/27/2024 4:45 PM EST [facility] Blood Venous blood specimen / Unknown Venipuncture / Unknown 07/27/2024 2:07 PM EST 07/27/2024 2:07 PM EST Lex Rich MD LAB BLOOD ORDERA BLES Final Result Performing Organization Address [facility]/ZIP Co de Phone Number [facility] [address] [place] [address], [place] [phone] * (ABNORMAL) C-reactive protein (07/27/2024 2:07 PM EST) Only the most recent of2 resultswithin the time period is included. [facility] C-Reactive Protein 4.85(H) <=0.50 mg/dL LAB CHEMISTRY METHOD 07/27/2024 4:46 PM EST [facility] Blood Venous blood specimen / Unknown Venipuncture / Unknown 07/27/2024 2:07 PM EST 07/27/2024 2:07 PM EST Lex Rich MD LAB BLOOD ORDERA BLES Final Result Performing Organization Address City/[facility]/ZIP Co de Phone Number [facility] [address] [place] [address], [place] [phone] * Hepatitis C antibody (07/12/2024 10:05 AM EST) [facility] Hepatitis C Antibody Negative Negative LAB CHEMISTRY METHOD 07/12/2024 1:27 PM EST [facility] Blood Venous blood specimen / Unknown Venipuncture / Unknown 07/12/2024 10:05 AM EST 07/12/2024 10:05 AM EST Lex Rich MD LAB BLOOD ORDERA BLES Final Result Performing Organization Address [facility]/ZIP Co de Phone Number [facility] [address] [place] [address], [place] [phone] * Free thyroxine with reflex to free triiodothyronine (07/12/2024 10:05 AM EST) [facility] Free T4 1.29 0.70 - 1.80 ng/dL LAB CHEMISTRY METHOD 07/12/2024 1:14 PM EST [facility] Blood Venous blood specimen / Unknown Venipuncture / Unknown 07/12/2024 10:05 AM EST 07/12/2024 10:05 AM EST Lex Rich MD LAB BLOOD ORDERA BLES Final Result Performing Organization Address [facility] [[email or web address]] Co de Phone Number [facility] [address] [place] [address], [place] [phone] * Cyclic citrullinated peptide, IgG and IgA (07/12/2024 10:05 AM EST) [facility] CCP AB Quant 6 <20 Units LAB CHEMISTRY METHOD 07/17/2024 11:49 AM EST [facility] Cyclic Citrullinated Peptide (CCP) Antibody Negative Negative LAB CHEMISTRY METHOD 07/17/2024 11:49 AM EST [facility] Blood Venous blood specimen / Unknown Venipuncture / Unknown 07/12/2024 10:05 AM EST 07/12/2024 10:05 AM EST Lex Rich MD LAB BLOOD ORDERA BLES Final Result Performing Organization Address [facility]/ZIP Co de Phone Number [facility] [address] [place] [address], [place] [phone] * (ABNORMAL) MADY IFA with titer and pattern (07/12/2024 10:05 AM EST) Pathologist [facility] MADY Positive( A) Negative 07/13/2024 12:04 PM [facility] MADY Pattern Nucleolar (A) (none) 07/13/2024 12:04 PM [facility] Comment: May be associated with scleroderma. If clinical suspicion of scleroderma consider testing for anti-SCL-70. Titer 1:1280(A) <1:160 07/13/2024 12:04 PM [facility] Blood Venous blood specimen / Unknown Venipuncture / Unknown 07/12/2024 10:05 AM EST 07/12/2024 10:05 AM EST Lex Rich MD LAB BLOOD ORDERA BLES Final Result [facility] [address] [place] [address], [place] [phone] * (ABNORMAL) CBC auto differential (07/12/2024 10:05 AM EST) [facility] WBC 10.5 4.8 - 10.8 K/mcL LAB HEMETOLOGY METHOD 07/12/2024 12:19 PM [facility] RBC 4.30 3.80 - 4.80 M/mcL LAB HEMETOLOGY METHOD 07/12/2024 12:19 PM [facility] Hemoglobin 12.7 11.5 - 16.0 g/dL LAB HEMETOLOGY METHOD 07/12/2024 12:19 PM [facility] Hematocrit 41.0 35.0 - 47.0 % LAB HEMETOLOGY METHOD 07/12/2024 12:19 PM [facility] MCV 94.9 79.0 - 98.0 FL LAB HEMETOLOGY METHOD 07/12/2024 12:19 PM [facility] MCH 29.4 27.0 - 32.0 pcg LAB HEMETOLOGY METHOD 07/12/2024 12:19 PM [facility] MCHC 31.0(L) 32.0 - 37.0 g/dL LAB HEMETOLOGY METHOD 07/12/2024 12:19 PM [facility] RDW 17.2(H) 11.0 - 15.0 % LAB HEMETOLOGY METHOD 07/12/2024 12:19 PM [facility] Platelets 541(H) 130 - 400 K/mcL LAB HEMETOLOGY METHOD 07/12/2024 12:19 PM [facility] MPV 9.3 7.0 - 11.0 FL LAB HEMETOLOGY METHOD 07/12/2024 12:19 PM [facility] NRBC 0.0 <1.0 % LAB HEMETOLOGY METHOD 07/12/2024 12:19 PM [facility] NRBC Absolute 0.00 <0.10 K/mcL LAB HEMETOLOGY METHOD 07/12/2024 12:19 PM [facility] Neutrophils Relative 76.5 % LAB HEMETOLOGY METHOD 07/12/2024 12:19 PM [facility] Lymphocytes Relative 18.7 % LAB HEMETOLOGY METHOD 07/12/2024 12:19 PM [facility] Monocytes Relative 3.6 % LAB HEMETOLOGY METHOD 07/12/2024 12:19 PM [facility] Eosinophils Relative 0.0 % LAB HEMETOLOGY METHOD 07/12/2024 12:19 PM [facility] Basophils Relative 0.2 % LAB HEMETOLOGY METHOD 07/12/2024 12:19 PM [facility] Immature Granulocytes Relative 1.0 % LAB HEMETOLOGY METHOD 07/12/2024 12:19 PM [facility] Neutrophils Absolute 8.01(H) 1.50 - 7.00 K/mcL LAB HEMETOLOGY METHOD 07/12/2024 12:19 PM EST [facility] Lymphocytes Absolute 1.96 1.00 - 5.00 K/mcL LAB HEMETOLOGY METHOD 07/12/2024 12:19 PM [facility] Monocytes Absolute 0.38 0.20 - 1.00 K/mcL LAB HEMETOLOGY METHOD 07/12/2024 12:19 PM [facility] Eosinophils Absolute 0.00 0.00 - 0.50 K/mcL LAB HEMETOLOGY METHOD 07/12/2024 12:19 PM [facility] Basophils Absolute 0.02 0.00 - 0.20 K/mcL LAB HEMETOLOGY METHOD 07/12/2024 12:19 PM [facility] Immature Granulocytes Absolute 0.10(H) 0.00 - 0.03 K/mcL LAB HEMETOLOGY METHOD 07/12/2024 12:19 PM [facility] Blood Venous blood specimen / Unknown Venipuncture / Unknown 07/12/2024 10:05 AM EST 07/12/2024 10:05 AM EST Lex Rich MD LAB BLOOD ORDERA BLES Final Result [facility] [address] [place] [address], * Borrelia burgdorferi antibody (07/12/2024 10:05 AM EST) [facility] Lyme Ab Negative Negative LAB CHEMISTRY METHOD 07/12/2024 12:54 PM [facility] Comment: No laboratory evidence of infection [...] ORDERA BLES Final Result Performing Organization Address City/[facility]/ZIP Co de Phone Number [facility] [address] [place] [address], * Anti-Ana 1 antibody, IgG (07/12/2024 10:05 AM EST) ANA-1 IgG Antibody 0.3 <7.0 U/mL 07/16/2024 3:15 PM EST [facility] Comment: INTERPRETATION: Negative Test performed at [facility], [address] , [place], [place] ??[address] ? [phone] Candi Hardin MD, PhD - Identification Clerk Blood Venous blood specimen / Unknown Venipuncture / Unknown 07/12/2024 10:05 AM EST 07/12/2024 10:05 AM EST Lex Rich MD LAB BLOOD ORDERA BLES Final Result Performing Organization Address City/[facility]/ZIP Co de Phone Number [facility] [address] [place] [address] * DNA antibody, double-stranded (07/12/2024 10:05 AM EST) Anti-DNA Double Stranded Antibody Negative Negative LAB CHEMISTRY METHOD 07/15/2024 10:40 AM EST [facility] ds DNA Ab 37 <=200 I Unit/mL LAB CHEMISTRY METHOD 07/15/2024 10:40 AM EST [facility] Blood Venous blood specimen / Unknown Venipuncture / Unknown 07/12/2024 10:05 AM EST 07/12/2024 10:05 AM EST Lex Rich MD LAB BLOOD ORDERA BLES Final Result Performing Organization Address [facility]/ZIP Co de Phone Number [facility] [address] [place] [address], [place] [phone] * (ABNORMAL) Rheumatoid factor (07/12/2024 10:05 AM EST) [facility] Rheumatoid Factor 1,400.0(H ) <15.0 I Unit/mL LAB CHEMISTRY METHOD 07/12/2024 1:03 PM EST [facility] Blood Venous blood specimen / Unknown Venipuncture / Unknown 07/12/2024 10:05 AM EST 07/12/2024 10:05 AM EST Lex Rich MD LAB BLOOD ORDERA BLES Final Result Performing Organization Address [facility] [[email or web address]] Co de Phone Number [facility] [address] [place] [address], [place] [phone] * Triiodothyronine free (07/12/2024 10:05 AM EST) [facility] T3, Free 262 230 - 420 pcg/dL LAB CHEMISTRY METHOD 07/12/2024 1:42 PM EST [facility] Blood Venous blood specimen / Unknown Venipuncture / Unknown 07/12/2024 10:05 AM EST 07/12/2024 10:05 AM EST Lex Rich MD LAB BLOOD ORDERA BLES Final Result Performing Organization Address [facility]/ZIP Co de Phone Number [facility] [address] [place] [address], [place] [phone] * Hemoglobin A1c (07/12/2024 10:05 AM EST) [facility] Hemoglobin A1C 6.3 <6.5 % LAB CHEMISTRY METHOD 07/12/2024 8:55 PM [facility] Mean Bld Glu Estim. 134 mg/dL LAB CHEMISTRY METHOD 07/12/2024 8:55 PM [facility] Blood Venous blood specimen / Unknown Venipuncture / Unknown 07/12/2024 10:05 AM EST 07/12/2024 10:05 AM EST Lex Rich MD LAB BLOOD ORDERA BLES Final Result [facility] [address] [place] [address], * (ABNORMAL) Comprehensive metabolic panel (07/12/2024 10:05 AM EST) [facility] Sodium 135 133 - 145 mmol/L LAB CHEMISTRY METHOD 07/12/2024 12:41 PM [facility] Potassium 5.2 3.5 - 5.5 mmol/L LAB CHEMISTRY METHOD 07/12/2024 12:41 PM [facility] Chloride 100 96 - 110 mmol/L LAB CHEMISTRY METHOD 07/12/2024 12:41 PM [facility] CO2 28 21 - 32 mmol/L LAB CHEMISTRY METHOD 07/12/2024 12:41 PM [facility] Anion Gap 7 3 - 11 LAB CHEMISTRY METHOD 07/12/2024 12:41 PM [facility] Glucose 105(H) 70 - 100 mg/dL LAB CHEMISTRY METHOD 07/12/2024 12:41 PM [facility] BUN 10 5 - 25 mg/dL LAB CHEMISTRY METHOD 07/12/2024 12:41 PM [facility] Creatinine 0.60 0.50 - 1.10 mg/dL LAB CHEMISTRY METHOD 07/12/2024 12:41 PM [facility] eGFR 105 >=60 mL/min/1. 73m2 LAB CHEMISTRY METHOD 07/12/2024 12:41 PM [facility] Comment:Calculation based on the??Chronic Kidney Disease Epidemiology Collaboration (CKD-EPI) equation refit??without adjustment for race. BUN/Creatinine Ratio 16.7 LAB CHEMISTRY METHOD 07/12/2024 12:41 PM [facility] Calcium 9.6 8.5 - 10.5 mg/dL LAB CHEMISTRY METHOD 07/12/2024 12:41 PM [facility] AST (SGOT) 12 10 - 42 unit/L LAB CHEMISTRY METHOD 07/12/2024 12:41 PM [facility] ALT (SGPT) 26 10 - 60 unit/L LAB CHEMISTRY METHOD 07/12/2024 12:41 PM [facility] Alkaline Phosphatase 92 42 - 121 unit/L LAB CHEMISTRY METHOD 07/12/2024 12:41 PM [facility] Total Protein 7.2 6.0 - 8.0 g/dL LAB CHEMISTRY METHOD 07/12/2024 12:41 PM [facility] Albumin 2.7(L) 3.2 - 5.0 g/dL LAB CHEMISTRY METHOD 07/12/2024 12:41 PM [facility] Total Bilirubin 0.4 0.0 - 1.4 mg/dL LAB CHEMISTRY METHOD 07/12/2024 12:41 PM [facility] Blood Venous blood specimen / Unknown Venipuncture / Unknown 07/12/2024 10:05 AM EST 07/12/2024 10:05 AM EST Lex Rich MD LAB BLOOD ORDERA BLES Final Result [facility] [address] [place] [address], * [id number], RSV, Influenza A and B qualitative RT-PCR (07/12/2024 9:57 AM EST) SARS COV-2 Not Detected Not Detected LAB MOLECULAR DIAGNOSTICS METHOD 07/12/2024 11:39 PM [facility] Comment: Disclaimer: The manner in which this information is used to guide patient care is the responsibility of the healthcare provider. Testing was performed using the [employer] m SARS-CoV-2 test. This test has been [...] for Healthcare Providers can be found at: https://www.fda.gov/media/399417/download Fact sheet for Patients can be found at: https://www.fda.gov/media/881134/download Influenza A PCR Not Detected Not Detected LAB MOLECULAR DIAGNOSTICS METHOD 07/12/2024 11:39 PM EST [facility] Influenza B PCR Not Detected Not Detected LAB MOLECULAR DIAGNOSTICS METHOD 07/12/2024 11:39 PM [facility] RSV PCR Not Detected Not Detected LAB MOLECULAR DIAGNOSTICS METHOD 07/12/2024 11:39 PM [facility] Swab Nasopharyngeal structure / Unknown Non-blood Collection / Unknown 07/12/2024 9:57 AM EST 07/12/2024 9:57 AM EST Lex Rich MD LAB MICROBIOLOGY - GENERAL ORDERABLES Final Result [facility] [address] [place] [address], * SCREENING MAMMOGRAPHY BI [employer] [...] mg/dL Blood Venous blood specimen / Unknown us Historical Provider LAB BLOOD ORDERABLES Hodan l Result * Colonoscopy (09/21/2023) Colonoscopy no interpreta tion,abstr acted Anatomical Region Laterality Modality Other us Historical Provider HEALTH MAINTENANCE Final Result from Last 3 Months or Most Recently Relevant to Health Maintenance Insurance [employer] MEDIC[employer] Member Subscriber Plan / Payer (Ef fective 2022-Present) Name:Patricia Alexandre Relation to Subscriber:Self Name:Patricia Alexandre Payer ID:[id number] Group ID:[id number] Type:Not on file Address: [place] [address] [address] [phone] Care Teams Professor Of Law Relationship Specialty Start Date End Date Lex Rich MD [address] [place] [address] PCP - General Internal Medicine 05/24/24
--- OUTSIDE RECORDS SUMMARY | 2024-09-25 12:53 | XMS_ITS | Encounter Summary ---
[facility] Address [address] [place] [address] Care Team Providers Care Restaurant Delivery Driver Name Role Phone Lex Rihc MD Primary Care Pr ovider Reason for Referral * Imaging (Routine) - Closed Specialty Diagnoses / Procedures Referred By Contac t Referred To Contact Radiology Diagnoses ILD (interstitial lung disease) (CMS/HCC) Procedures CT Chest wo Contrast Aysha Hernandez MD [address] [address] Phone: tel: fax: [facility] CT Scan [address] [place] [address] Phone: tel: Referral ID Status Reason Start Date Expiration Date Visits Re quested Visits Authorized [id number] Closed 08/23/2024 11/18/2024 1 1 Reason for Visit * Imaging (Routine) - Closed Specialty Diagnoses / Procedures Referred By Contac t Referred To Contact Radiology Diagnoses ILD (interstitial lung disease) ([facility]/HCC) Procedures CT Chest wo Contrast Aysha Hernandez MD [address] [address] Phone: tel: fax: [facility] CT [address] [place] [address] Phone: tel: Referral ID Status Reason Start Date Expiration Date Visits Re quested Visits Authorized [id number] Closed 08/23/2024 11/18/2024 1 1 Encounter Details Date Type Department Care Team (Latest Contact Info) Description 09/20/2024 12:50 PM EST - 09/20/2024 11:59 PM EST Hospital Encounter [facility] [address] Scan [address] [place] [address] ILD (interstitial lung disease) ([facility]) Discharge Disposition: Home or Self [...] baclofen (LIORESAL) 10 mg tabletIndications:Po lymyalgia rheumatica ([facility]),Myalgia,Le ft hip pain Take 1 [...] 11:00 AM EDT Office Visit Pulmonolgy - [place] [address] [address] Aysha Hernandez MD [address] [address] 11/22/2024 12:45 PM EDT Office Visit Adult Medicine [address] [phone] Lex Rich MD [address] [place] [address] 03/13/2025 11:10 AM EDT Appointment Radiology Department - [address] [phone] documented as of this encounter Procedures Procedure Name Priority Date/Time Associated Diagnosis Comments CT CHEST WO CONTRAST Routine 09/20/2024 1:11 PM EST ILD (interstitial lung disease) (CMS/HCC) documented in this encounter Results * CT Chest wo Contrast (09/20/2024 [...] Signed Date: 09/24/2024 15:52 ET Workstation ID: [id number] Transcribed By: Self Edit Transcribed Date: 09/24/2024 [...] Signed Date: 09/24/2024 15:52 ET Workstation ID: [id number] Transcribed By: Self Edit Transcribed Date: 09/24/2024 15:37 ET Aysha Hernandez MD IMG CT PROCEDURES Final Result documented in this encounter Visit Diagnoses Diagnosis ILD (interstitial lung disease) (CMS/HCC) Postinflammatory pulmonary fibrosis Encounter for screening mammogram for breast cancer documented in this encounter Care Teams Restaurant Delivery Driver Relationship Specialty Start Date End Date Lex Rich MD [address] [place] [address] PCP - General Internal Medicine 05/24/24 documented as of this encounter
--- OUTSIDE RECORDS SUMMARY | 2024-09-25 12:53 | XMS_ITS | Encounter Summary ---
Author Organization [facility] Address [address] [place] [address] Care Team Providers Care Metal Off Bearer Name Role Phone Lex Rich MD Primary Care Pr ovider Encounter Details Date Type Department Care Team (Late Contact Info) Description 09/19/2024 Billing Patient Not Present Adult Medicine [address] [address] [place], [place] Social History Tobacco Use Types Packs/Day [...] Description 10/23/2024 11:00 AM EDT Office Visit [facility] [address] [phone] Aysha Hernandez MD 175 [facility] [address] [place] [address] 11/22/2024 12:45 PM EDT Office Visit Adult Medicine South - [address] [phone] Lex Rich MD [address] [place] [address] 03/13/2025 11:10 AM EDT Appointment Radiology Department - [address] [phone] documented as of this encounter Visit Diagnoses Not on filedocumented in this encounter Care Teams Metal Off Bearer Relationship Specialty Start Date End Date Lex Rich MD [address] [place] [address] PCP - General Internal Medicine 05/24/24 documented as of this encounter
--- OUTSIDE RECORDS SUMMARY | 2024-09-25 12:53 | XMS_ITS | Data Portability ---
Author Organization [facility] [employer] Address [address] [place] [phone] Care Team Providers Care Corporate Counselor Name Role Phone HIM CCA OTHER Assessment Encounter Date Assessment Date Assessment LastModified by Organization Details LastModified Time 12/13/2023 12/13/2023 I provided real -time medical direction via phone for this encounter and was available for additional phone-based assistance as needed. I have reviewed and agree with the Assessment and Plan as documented by the Mash Processing Operator. Patient given the opportunity to ask questions. Our service contacted for an assessment of: Chronic pain As per above, patient with hx of chronic pain. No new or worsening red S&S. No new bowel/bladder symptoms. No new gait abnl. No new neurological signs, symptoms or deficits. Per smalltalk developer on the scene, VSS, non-toxic. Neuro grossly [...] in the field was performed by my smalltalk developer colleague, as noted above, I provided real-time [...] /min 120 mm[Hg] 75 mm[Hg] Not Available [employer] 4 13:40:20 Date Recorded Heart rate Body temperature Respiratory rate Oxygen saturation Oxygen saturation in Arterial blood by Pulse oximetry Systolic blood pressure Diastolic blood pressure Provider Name and Address Organization Details Last Updated DateTime 4 82 /min 98.7 [degF] 16 /min 98 % 98 % 120 mm[Hg] 76 mm[Hg] Not Available [facility] 4 19:15:34 Social History None recorded. Functional Status None recorded. Mental Status None recorded. Family History Nothing Reported. Medical History No medical history recorded. Gynecological HistoryNo gynecological history recorded. Obstetrics History GPAL:G 0 P 0 0 0 0 Past Encounters Encounter ID Performer Location Encounter Start Date Encounter Closed Date Diagnosis/Indication Diagnosis SNOMED-CT Code Diagnosis ICD10 Code Diagnosis Note [id number] Mariella Castro MD [facility] [address] [place] [phone] 12/13/2023 13:40:10 12/13/2023 17:51:43 Chronic pain 32911435 G89.29 [id number] Hafsa Angel MD [facility] [address] [place] [phone] 12/14/2023 19:15:30 12/15/2023 11:44:34 Erythematous rash 899008065 R21 Health Concerns Section Related Observation LastModified by Organization Detai ls LastModified Time None Recorded Concern Status LastModified by Organization Details LastModified Time None Recorded Advance Directives Directive None Recorded Payers Encounter Date Sequence Insurance Name Policy Number Policy Haywood Covered Member ID Haywood Member ID Guarantor Name 12/13/2023 1 [facility] - DOS ON OR AFTER 2022 - DUAL ELIGIBLE - SENIOR LIVING OPTIONS AND ONE CARE (MEDICARE REPLACEMENT/ADV ANTAGE - HMO) Patricia Alexandre [id number] Patricia Alexandre 12/14/2023 1 [facility] - DOS ON OR AFTER 2022 - DUAL ELIGIBLE - SENIOR LIVING OPTIONS AND ONE CARE (MEDICARE REPLACEMENT/ADV ANTAGE - HMO) Patricia Alexandre [id number] Patricia Alexandre Notes Date Note Type Note [...] ................. ................. ................. ................. ................. ................. ..... Mash Processing Operator Note From Elena Chahal: 58y F c/o [...] Cole Mariella Castro MD [address] [facility],[address], [place], [address], [facility] 12/13/2023 13:48:03 12/14/2023 text/html CRC Nurse Triage Notes (Danelle Cotton): Reason For Request: Follow up from surgery /muscular spasms Chief Complaints: Pain PMH: Other Allergies: Unknown Comments: Bridge Worker Apprentice verified the member's name//address and phone number. Member is a 58 yr old female, turkmen speaking PMH Son calling for member, had [...] reported s/s and [facility]: spasms of right arm are chronic. [...] ................. ................. ................. ................. ................. ................. ........ Mash Processing Operator Note From Caden Bennett: Dispatched to the call address for the follow up. [facility] and pain. [...] Disposition: Cole Angel MD [address] [facility],[address], [place], [address], [facility] 12/14/2023 21:13:02 OBGyn Episode No OBEpisode recorded.
--- OUTSIDE RECORDS SUMMARY | 2024-09-25 12:53 | XMS_ITS | Clinical Summary ---
Author Organization [employer] Address [address] [facility] [address] [place] [address] Care Team Providers Care Train Inspector Name Role Phone Unavailable Primary Care Provider Unavailabl e Social History Tobacco Use Types Packs/Day Years Used Date Smoking Tobacco: Never Assessed Comments Unknown Sex and Gender Information Value Date Recorded Sex Assigned at Not on file Legal Sex Female 2:37 PM EST Gender Identity Female 06/24/2022 2:41 PM EST Sexual Orientation Not on file Plan of Treatment Health Maintenance Due Date Last Done Comments CT Colonography 1966 Colonoscopy 1966 Colorectal Cancer Screening 1966 Depression Screening 1966 FIT DNA/Cologuard 1966 FIT 1966 FOBT 1966 HIV Screening 1966 SDOH Screening 1966 Sigmoidoscopy 1966 Alcohol/Substance Use Screening 1978 Tobacco Screening 1978 Hepatitis C Screening 1984 DTaP/Tdap/Td Vaccines (1 - Tdap) 1985 Hepatitis B Vaccines (1 of 3 - 19+ 3-dose series) 1985 Pap Smear 10/30/1987 Cervical Cancer Screening 1996 HPV/Cotest 1996 Mammogram 2006 Pneumococcal Vaccine: 50+ Ye ars (1 of 1 - PCV) 2016 Zoster Vaccines (1 of 2) 2016 COVID-19 Vaccine ( - 2023-2 5 season) 2024 Influenza Vaccine (#1) 2024 RSV Patients and Pa tients Aged 60 years or older (1 - 1-dose 75+ series) 2041 HIB Vaccines Aged Out No longer eligi [...] patient's age to complete this topic Meningococcal Vaccine Aged Out No lee darren eligible based on patient's age to complete this topic RSV under 20 months Aged Out No longe r eligible based on patient's age to complete this topic Rotavirus Vaccines Aged Out No longer eligible based on patient's age to complete this topic Insurance [facility] [employer] MEDIC[facility]
--- OUTSIDE RECORDS SUMMARY | 2024-09-25 12:53 | XMS_ITS | Encounter Summary ---
Author Organization [facility] Address [address] [place] [address] Care Team Providers Care Budget Record Clerk Name Role Phone Lex Rich MD Primary Care Pr ovider Reason for Visit * Reason Onset Date Comments Medication Problem 08/24/2024 Encounter Details Date Type Department Care Team ([facility] st Contact Info) Description 08/24/2024 [facility] [place] [address] [facility] [address] [place] [phone] Aysha Hernandez MD 175 [facility] [address] [place] [address] Medication Problem Social History Tobacco Use Types [...] 5:40 PM EST I send it to [facility] specialty- please make sure that is the [...] OFFEV to be submitted. Please call Vel [phone] documented in this encounter Plan of Treatment Upcoming Encounters Date Type Department Care Team (Late st Contact Info) Description 10/23/2024 11:00 AM EDT Office Visit Pulmonolgy - [place] [address] [phone] Aysha Hernandez MD 175 [facility] [place] [address] [place] [address] 11/22/2024 12:45 PM EDT Office Visit Adult Medicine [facility] - [address] [phone] Lex Rich MD [address] [place] [address] 03/13/2025 11:10 AM EDT Appointment Radiology Department - [address] [phone] documented as of this encounter Visit Diagnoses Diagnosis ILD (interstitial lung disease) ([facility])- Primary Postinflammatory pulmonary fibrosis Encounter for screening mammogram for breast cancer documented in this encounter Discontinued Medications Medication Sig Discontinue Reason Start Date End Da te nintedanib (Ofev) 150 mg capsule Take 150 mg by mouth 2 times daily. Reorder 01/09/2024 08/30/2024 documented as of this encounter Care Teams Budget Record Clerk Relationship Specialty Start Date End Date Lex Rich MD [address] [place] [address] PCP - General Internal Medicine 05/24/24 documented as of this encounter
--- OUTSIDE RECORDS SUMMARY | 2024-09-25 12:53 | XMS_ITS | Encounter Summary ---
Author Organization [email or web address] Address [address] [place] [address] Care Team Providers Care Private Detective Name Role Phone Lex Rich MD Primary Care Pr ovider Encounter Details Date Type Department Care Team (Late st Contact Info) Description 08/03/[address] [facility] [place] [address] [place] [phone] Aysha Hernandez MD 175 [facility] [address] [place] [address] Social History Tobacco Use Types Packs/Day Years [...] EST Medication was not prescribe by Dr. Hernandez.m please advise * Ubaldo Stoner - 08/03/2024 3:42 PM EST Patient niece called to informed provider that the previous pharmacy they had send Rx to will not be able to fulfill the order. Patient is requesting the RX to be send to [facility] FAX [phone] documented in this encounter Plan of Treatment Upcoming Encounters Date Type Department Care Team (Late st Contact Info) Description 10/23/2024 11:00 AM EDT Office Visit Pulmonolgy - [place] 175 [facility] [address] [phone] Aysha Hernandez MD [address] [address] 11/22/2024 12:45 PM EDT Office Visit Adult Medicine [address] [phone] Lex Rich MD [address] [place] [address] 03/13/2025 11:10 AM EDT Appointment Radiology Department - [address] [phone] documented as of this encounter Visit Diagnoses Not on filedocumented in this encounter Care Teams Private Detective Relationship Specialty Start Date End Date Lex Rich MD [address] [place] [address] PCP - General Internal Medicine 05/24/24 documented as of this encounter
[2024-09-25 13:07] LABS: Glucose, Whole Blood 177 mg/dL (60-115)
[2024-09-25 16:35] LABS: Glucose, Whole Blood 134 mg/dL (60-115)
--- NOTE | 2024-09-25 16:44 | PC.NURSE ---
Assumed care of this patient at 1500, patient transferred into hospital bed, medicated for pain, resting quietly on hospital bed awaiting bed assignment at this time.
[2024-09-25 18:48] LABS: CRP High Sensitivity >20.0 mg/L
[2024-09-25 20:13] LABS: Glucose, Whole Blood 151 mg/dL (60-115)
[2024-09-25] MEDS: traZODone HCL 100 MG TABLET PO (20:36)
[2024-09-25] MEDS: Enoxaparin Sodium 40 MG/0.4 ML SYRINGE SUBCUT (20:36)
[2024-09-25] MEDS: Prazosin HCL 1 MG CAPSULE PO (20:36)
[2024-09-25] MEDS: methylPREDNISolone Sod Succ 125 MG/2 ML VIAL 60 MG IVPUSH (20:36)
[2024-09-25] MEDS: Morphine Sulfate 4 MG/ML CARTRIDGE IVPUSH (23:26)
[2024-09-26 04:00] VITALS: BP 114/67; PULSE 83; RESP 16; TEMP 36; O2SAT 98
[2024-09-26 07:12] VITALS: BP 114/68; PULSE 90; RESP 18; TEMP 36.3; O2SAT 97
[2024-09-26 07:27] LABS: Glucose, Whole Blood 202 mg/dL (60-115)
[2024-09-26] MEDS: Insulin Lispro 100 UNIT/ML 3 ML VIAL SUBCUT (08:02)
[2024-09-26] MEDS: Isosorbide Mononitrate 30 MG TAB.ER.24H PO (08:03)
[2024-09-26] MEDS: Baclofen 10 MG TABLET PO (08:04)
[2024-09-26] MEDS: busPIRone HCl 5 MG TABLET 7.5 MG PO (08:04)
[2024-09-26] MEDS: Cholecalciferol (Vitamin D3) 25 MCG TABLET PO (08:04)
[2024-09-26] MEDS: Cyanocobalamin (Vitamin B-12) 1,000 MCG TABLET 1000 MCG PO (08:04)
[2024-09-26] MEDS: Atorvastatin Calcium 40 MG TABLET PO (08:04)
[2024-09-26] MEDS: 0.9 % Sodium Chloride Flush 3 ML SYRINGE IVFLUSH (08:06)
--- NOTE | 2024-09-26 09:23 | MHC.CM.PN ---
Addendum entered by Rea Cheng 09/26/24 14:43: IMM 09/26/24 Insurance auth for STR has been received by [employer]. Transportation is booked for 3pm pickle sorter. Original Note: Per UR nurse, Patient meets INPT criteria. AN IMM was delivered on 09/26/24. It was verbally delivered via historic interpreter. Lebron has initiated the insurance authorization process. JOHNNY Diana [place] via BLS.
--- NOTE | 2024-09-26 09:30 | MHC.CM.PN ---
late entry spoke to niece re hcp and bringing in copy niece does not have a copy of proxy did new proxy with pt in ed pt has been [facility] they initiated auth 3/4 dc plan str await auth from [facility]
[2024-09-26] MEDS: NINTEDANIB 150 MG 150 EACH PO (10:21)
[2024-09-26] MEDS: Morphine Sulfate 4 MG/ML CARTRIDGE IVPUSH (10:21)
[2024-09-26 11:30] LABS: Glucose, Whole Blood 135 mg/dL (60-115)
[2024-09-26] MEDS: oxyCODONE HCl Immed Release 5 MG TABLET PO (12:59)
--- NOTE | 2024-09-26 13:47 | PM.DS ---
DS: Providers Provider Date of Service: 09/26/24 Date of admission: 09/26/24 08:22 Date of discharge: 09/26/24 Primary care physician: Lex Rich MD DS: Diagnosis Discharge Diagnosis (1) Polymyalgia rheumatica: Status: Acute DS: Summary Hospital Course Hospital Course: History of presenting illness: Date of Service: 09/23/24 Attending physician on admission: Camron Judd Chief Complaint: weakness, body aches Patient is a 58-year-old Chinese-speaking female with a history significant for PMR, idiopathic pulmonary fibrosis, CAD and HLD, who reported to the ED again due to increasing weakness and inability to walk with associated upper extremity and lower extremity joint pain and a recent fall due to left sided weakness. She was recently admitted 2 months ago for a PMR flare, treated with steroids and sent home with outpt rehab. she reports that she was discharged from the rehab 2 weeks ago and was doing well but was not able to do her home exercises this past week due to her pain and weakness. She has an appt with pain management tomorrow at 1pm. She rates the pain at 10/10 very sensitive to touch and extremely painful with movement or pressure, mild now since recieving pain medication. No erythema or warmth of the joints. no LE edema. She reports the pain is specifically in her shoulders, elbows, hips and knees, slighlty more in the L knee from a recent fall due to weakness. This flare feels exactly the same as last time. She denies any recent illness or respiratory difficulties. Hospital course: 58-year-old female with a history significant for PMR, idiopathic pulmonary fibrosis, CAD and HLD, who reported to the ED again due to increasing weakness and inability to walk with associated upper extremity and lower extremity joint pain. Presented with generalized weakness with fall on left side, with left leg pain, paresthesias, bilateral hand weakness numbness, on and off shoulder stiffness, being followed by customer services coordinator for polymyalgia rheumatica currently not on steroids, patient admitted due to weakness concern for PMR flare although does not have classical symptoms of PMR, treated with IV Solu Medrol due to elevated ESR and CRP, evaluated by Physical therapy they recommend short-term rehab, will discharge patient home on prednisone 15 mg daily for 2 weeks with gradual wean 2.5 mg Q weekly strongly recommend outpatient follow-up with Rheumatology and Neurology for left lower extremity numbness paresthesias. History elevated blood sugars likely due to steroids hemoglobin A1c 6.4, recommend to follow low-calorie diabetic diet and monitor blood sugars while on steroids CAD/HLD continue aspirin, statin and isosorbide. Idiopathic pulmonary fibrosis continue OFEV 150 mg b.i.d. and outpatient follow-up with PCP Time Attestation Discharge Coordination Time (in mins): 40 Quality: Safe Use of Opioids Does Pt have an Active Cancer Diagnosis on the Problem List?: No Quality: Stroke Does the patient have a stroke diagnosis?: No Physical Exam Vital Signs: Vital Signs: Last Vital Signs Temp 97.4 F 09/26/24 07:12 Pulse 90 09/26/24 07:12 Resp 18 09/26/24 07:12 BP 114/68 09/26/24 07:12 Pulse Ox 97 09/26/24 07:12 O2 Del Method Room Air 09/26/24 07:12 BMI result Body Mass Index 24.5 Const: Other: General resting comfortably in no acute distress. Neck supple no JVD. CVS regular rate rhythm, Respiratory lungs clear to auscultation, no respiratory distress, no wheeze, no rhonchi. Gastrointestinal abdomen soft, non tender, bowel sounds audible Extremities noedema. Neuro good strength bilateral shoulders/left lower extremity decreased strength likely due to pain from fall, numbness dorsum of foot., speech clear. Right lower extremity good strength Skin no rash DS: Data Data Completed and Pending Labs on day of discharge: Laboratory Results - last 24 hr 09/24/24 09/25/24 09/25/24 04:20 16:32 20:09 POC Glucose 134 H 151 H C-React Prot High Sens >20.0 H 09/26/24 09/26/24 07:16 11:27 POC Glucose 202 H 135 H C-React Prot High Sens Discharge Plan Discharge Anticipated Discharge Date/Time: 09/26/24 13:44 Patient Disposition: Xfer SNF Discharge Diagnosis: Generalized weakness Unsteady gait Polymyalgia rheumatica Referrals: Lex Rich MD [Primary Care Provider] - 1 Week Discharge Medications: New prednisone 10 mg tablet 10 mg PO DAILY Qty: 60 0RF Rx Instructions: take 15 mg po daily x 2 weeks than wean 2.5 q2 weekly Continued atorvastatin 40 mg tablet 40 mg PO DAILY prazosin 1 mg capsule 1 mg PO BEDTIME isosorbide mononitrate 30 mg tablet extended release 24 hr 30 mg PO DAILY trazodone 100 mg tablet 100 mg PO BEDTIME baclofen 10 mg tablet 10 mg PO TID buspirone 7.5 mg tablet 7.5 mg PO BID Ofev 150 mg capsule 150 mg PO BID cyanocobalamin (vitamin B-12) 1,000 mcg Tablet 1,000 mcg PO DAILY cholecalciferol (vitamin D3) 25 mcg (1,000 unit) Tablet 25 mcg PO DAILY Discontinued prednisone 10 mg tablet 10 mg PO DAILY Taper: Prednisone 40 mg daily for 4 Days and 0 Hour 30 mg daily for 7 Days and 0 Hour 20 mg daily for 7 Days and 0 Hour 10 mg daily for 7 Days and 0 Hour Rx Instructions: see taper instructions Discharge Orders: Discharge Order (Routine); Ordered 09/26/24 Ordered By: Saurav Pedroza Diet: Diabetic diet Activity on Discharge: As tolerated Stand Alone Forms: Patient Portal Discharge page Print Language: Chinese Care Plan Goals: Generalized weakness/unsteady gait and fall Bilateral shoulder and hip pain Health Concerns: Idiopathic pulmonary fibrosis Plan of Treatment: Outpatient follow-up with Rheumatology for continued management of polymyalgia rheumatica Assessment: As above
[2024-09-26 15:07] VITALS: BP 120/76; PULSE 112; RESP 16; TEMP 36.4; O2SAT 97
== END 2024-09-26 16:00 | disposition skilled nursing facility (03) | DRG 547 ==
LOC: HO.ED 19:25 → HO.EDOVER 09-24 06:16 → HO.S3 09-25 21:55
PROVIDERS: Internal Medicine; Nurse Practitioner Acute Care; Physician Assistant Medical; Admitting Provider Physician Assistant; Emergency Provider Emergency Medicine; PCP Family Medicine; Visit Provider Hospitalist
DX: M35.3 Polymyalgia rheumatica (principal); I25.10 Atherosclerotic heart disease of native coronary artery without angina pectoris; J84.112 Idiopathic pulmonary fibrosis; E78.5 Hyperlipidemia, unspecified; Z79.899 Other long term (current) drug therapy
CPT/HCPCS: 36415; 73502; 80048; 80076; 81003; 82550; 82947; 83735; 84484; 85025; 85027; 85652; 86140; 86141; 93005; 97116; 97162; 99285; J1171; J1650; J2270; J2919

== ENCOUNTER → 2024-09-23 16:52 | Outpatient (BNV) | payer OTHER, SELFPAY | PROVIDERS: Admitting Provider Physician Assistant; Emergency Provider Emergency Medicine; PCP Family Medicine; Visit Provider Internal Medicine Cardiovascular Disease | DX: R00.0 Tachycardia, unspecified (principal) | CPT/HCPCS: 93010 ==

== ENCOUNTER → 2024-09-23 18:11 | Outpatient (BNV) | payer OTHER, SELFPAY | PROVIDERS: Emergency Provider Emergency Medicine; Visit Provider Student in an Organized Health Care Education/Training Program | DX: M25.552 Pain in left hip (principal) | CPT/HCPCS: 73502 ==

== ENCOUNTER → 2024-09-23 21:04 | Outpatient (BNV) | payer OTHER, SELFPAY | PROVIDERS: Admitting Provider Physician Assistant; Emergency Provider Emergency Medicine; Visit Provider Physician Assistant | DX: M35.3 Polymyalgia rheumatica (principal); R29.898 Other symptoms and signs involving the musculoskeletal system; M79.10 Myalgia, unspecified site; R26.2 Difficulty in walking, not elsewhere classified | CPT/HCPCS: 99222; 99232; 99239 ==

== ENCOUNTER 2024-11-28 11:33 | Outpatient (AMB) | payer OTHER, SELFPAY ==
--- NOTE | 2024-11-28 11:47 | A.OFFVIS_ITS ---
Vital Signs 11/28/24 11:48 Height 5 ft Weight 108 lb BMI 21.1 BP 108/70 Blood Pressure Location Rt brachial Position Sitting Pulse 96 Pulse Source Pulse Oximeter Pulse Oximetry (%) 99 Oxygen Delivery Method Room Air Intake Visit Reasons: JOINT/LOW BACK PAIN Camp Head Counselor Required: Yes Camp Head Counselor Services: Camp Head Counselor Offered & Declined Camp Head Counselor Name: Patient [place] Allergies No Known Allergies Allergy (Verified 11/28/24 11:50) Medication List - Last Reconciled 11/28/24 by Jessica Nj, DIRECTOR OF COMM[facility]ITY C[facility] atorvastatin 40 mg PO DAILY baclofen 10 mg PO TID buspirone 7.5 mg PO BID cholecalciferol (vitamin D3) 25 mcg PO DAILY cyanocobalamin (vitamin B-12) 1,000 mcg PO DAILY isosorbide mononitrate ER 30 mg PO DAILY nintedanib (Ofev) 150 mg PO BID prazosin 1 mg PO BEDTIME prednisone 10 mg PO DAILY trazodone 100 mg PO BEDTIME HPI Comments Details: The patient is a 59-year-old female presenting with chronic pain management issues. Following a lung biopsy for pulmonary fibrosis, she began long-term prednisone therapy, leading to joint pain in her lower back and legs. The back pain, exacerbated by the biopsy site, and separate burning pain in her feet associated with diabetic neuropathy began in March of the previous year due to elevated blood glucose levels, with an A1C reading of 6.4. Additionally, the patient experiences sciatica and reports the pain worsens with activity. Patient recently admitted to the hospital for flare of her polyarthralgia rheumatica. She was discharged to a rehab facility where they did extensive physical therapy. She continues with physical therapy at home though pain persists. Endorses axial lower back pain and pain over bilateral PSIS. She reports sacroiliac joint pain is more bothersome than the axial back pain and would like to focus their 1st. Her pain management regimen includes gabapentin once daily and baclofen thrice daily, but with minimal efficacy, as physical therapy contributes only marginal relief. She has not been prescribed nonsteroidal anti-inflammatory drugs due to long-term prednisone use. Has been referred to Rheumatology, appointment pending in one-week. - Onset and Timing: Pain began post-lung biopsy, worsened by prednisone use; burning pain in the feet since last March - Quality and Character: Joint pain, centralized back pain with associated burning in the feet - Primary Location: Lower back, legs, and feet - Radiation: Back pain radiates towards the prior biopsy site; burning sensation localized in the feet - Exacerbating Factors: Movement, lying still in the morning, walking - Relieving Factors: None specifically mentioned - Interference with Activities: Pain impacts mobility, with physical therapy providing marginal relief - Affect: Pain impacts daily function and psychological wellbeing - Analgesia: Currently using gabapentin once daily, baclofen three times daily; Tylenol as needed - Adverse Effects: No reported side effects from current pain management regime, though sleep is disturbed - Activities of Daily Living: Pain limits patient?s ability to perform routine activities and increases fall risk - Aberrant Drug Related Behaviors: No indications of medication misuse [facility] Medical History (Updated 11/28/24 @ 16:02 by Kat Mays APRN, CRYPTOLOGIC TECHNICIAN TECHNICAL) CAD (coronary artery disease) Idiopathic pulmonary fibrosis Polymyalgia rheumatica Social History Household Members: None Housing: Apartment Do you presently have visiting nurse or other home services: No (AWAITING vertical borer) Unable to assess alcohol history related to: Unknown Patient Tobacco Use Status: Never used Tobacco e-Cigarette/Vaping Use: Never Used service: No Review of Systems Const Details: - Musculoskeletal: Reports joint pain, sacroiliac and leg pain - Neurological: Reports burning sensation in feet (neuropathy) - Endocrine: Reports elevated blood glucose levels - Other: Denies falls due to weakness Physical Exam Vital Signs: Last Vital Signs Pulse 96 11/28/24 11:48 BP 108/70 11/28/24 11:48 Pulse Ox 99 11/28/24 11:48 Oxygen Delivery Method Room Air 11/28/24 11:48 BMI result Body Mass Index 21.1 General: awake, alert, oriented. Answers questions appropriately. Fully engaged in examination. Skin: warm, dry, intact HEENT: Normocephalic. Hearing intact. Cardiac: External chest normal in appearance. Respiratory: No cough, audible wheezing or stridor. Abdomen: without gross distension. MS: No obvious swelling or deformities. Able to transition from sit to stand unassisted. Antalgic gait Tenderness to midline lumbar vertebrae and lumbar paraspinal muscles Tenderness over bilateral PSIS. [place] positive bilaterally. Thigh thrust positive bilaterally. SI compression positive bilaterally. Bilateral lower extremity strength 5/5 SLR negative bilaterally Neurological: Oriented to person, place, time and situation. Thought process intact. Ambulates with the use of a walker Psychiatric: Appropriate mood and affect. Good judgment and insight. Results Reviewed Results Reviewed: 09/23/2024 3 view, pelvis and left hip Findings: The bones are intact. No significant arthritic change. The soft tissues are unremarkable. IMPRESSION: No acute findings. Assessment & Plan Assessment & Plan (1) Sacroiliac joint dysfunction of both sides: Code(s): M53.3 - Sacrococcygeal disorders, not elsewhere classified Category: Medical (2) Myalgia: Code(s): M79.10 - Myalgia, unspecified site Category: Medical (3) Polymyalgia rheumatica: Code(s): M35.3 - Polymyalgia rheumatica Category: Medical (4) Lumbar spondylosis: Code(s): M47.816 - Spondylosis without myelopathy or radiculopathy, lumbar region Category: Medical (5) Chronic pain syndrome: Code(s): G89.4 - Chronic pain syndrome Category: Medical Plan The treatment plan for this visit includes increasing the patient's gabapentin dose to twice daily to improve neuropathic pain and sleep. Additional diagnostics in the form of x-ray imaging have been ordered for the pelvis, sacroiliac joints, and lower back. Diagnostic injections for sacroiliac joint pain are being pursued, with nerve conduction studies scheduled to further inform neuropathic assessments. Collaboration with rheumatology will explore transitioning the patient to non-steroidal management options. The aim is achieving optimal pain control and functional improvement. I discussed with the patient the rationale for increasing the gabapentin dosage, aiming to better manage neuropathic pain and ensure it aids sleep quality, while considering side effect profiles. We reviewed the scheduled diagnostic nerve conduction studies and the expected outcomes from radiographic imaging to assess underlying mechanistic issues with sacroiliac joints and lower back. I explained the potential relief from diagnostic injections and the eventual use of steroids if deemed effective. Furthermore, proactive communication with rheumatology is anticipated to transition to safer, non-steroidal pharmacotherapy, given current prednisone-related glucose issues. Follow-up and monitoring will be adjusted based on these evaluations and responses. Patient was informed and verbally consented to the use of an ambient scribe for clinic note documentation during this visit. Orders: Orders XR lumbar spine 4V min Today M47.816 - Spondylosis without myelopathy or radiculopathy, lumbar region XR sacroiliac joint min 3V Today M53.3 - Sacrococcygeal disorders, not elsewhere classified Medications: New gabapentin 300 mg PO BID 60 caps 3RF Patient Instructions: - Take gabapentin twice daily as prescribed, once in the morning and once before bedtime. - Continue with current medications, including baclofen three times daily and Tylenol as needed. - Schedule and attend nerve conduction studies in December as ordered by PCP. - Attend all scheduled follow-up appointments with rheumatology and for imaging. - Monitor symptoms and report any significant changes or concerns. - Avoid unnecessary physical strain and optimize safe walking environments to prevent falls. - Consider using physical support or assistance when attending appointments to reduce risk of falls. Coding Level of Care Code New Pt Level 4 (75716) Complex EM visit Add On G2211 Diagnoses Sacroiliac joint dysfunction of both sides M53.3 Myalgia M79.10 Polymyalgia rheumatica M35.3 Lumbar spondylosis M47.816 Chronic pain syndrome G89.4
[2024-11-28 11:48] VITALS: BP 108/70; PULSE 96; O2SAT 99; BMI 21.1
--- OUTSIDE RECORDS SUMMARY | 2024-11-28 13:00 | XMS_ITS | Data Portability ---
Author Organization [facility] [employer] [facility], Main Office Address [address] [facility], [address] [place] [address] Care Team Providers Care Practice Or Student Teacher Name Role Phone [facility] OTHER [facility] Primary Care Provider Assessment Encounter Date Assessment Date Assessment LastModified by Organization Details LastModified Time 10/12/2024 10/12/2024 Lab 09/23/24 ESR 73, CRP 13. 76. 09/27/24: WBC 8.7, Hgb 10.5, Plt 397, Na 134, K 3.8, Bun 19, Cr 0.57, Glu 108 [email or web address] Not available 10/12/2024 11:31:12 Plan of Treatment Reminders Order Date Submit Date Provider Last Modified By Organization Details Last Modified Time Details Appointments None record ed. Lab None record ed. Referral None record ed. Procedures None record ed. Surgeries None record ed. Imaging None record ed. Medication Orders None record ed. Patient TargetsNo targets recorded. Patient InstructionsNo instructions recorded. Reason for Referral None Reported. Problems Name Problem SNOMED Code Status Onset Date Resolution Date Notes Provider Name and Address Organization Details Recorded Time Polymyalgi a rheumatica 73795915 Active 2024 Not Available [facility] 5 13:29:03 History of fall 005866508 Active 2024 DANIELLE QUEZADA CNP [address] [facility], [facility] [address], [place], [address] , [facility] 5 13:02:11 Coronary arterioscl erosis 99175101 Active 2024 DANIELLE QUEZADA CNP [address] [facility], [address], [place], [address] , [place] [facility] 5 13:02:14 Idiopathic pulmonary fibrosis 385726741 Active 2024 ARLETTEKRIS QUEZADA, WHIZZER [address], [address], [place], [address] , [facility] 5 13:02:17 Insomnia 165782451 Active 2024 ARLETTEKRIS QUEZADA, WHIZZER [address], [address], [place], [address] , [facility] 5 13:02:19 Mixed anxiety and depressive disorder 213419115 Active 2024 ARLETTEKRIS QUEZADA, WHIZZER [address], [address], [place], [address] , [facility] 5 13:02:20 Hyperglyce deven 70224870 Active 2024 ARLETTEKRIS QUEZADA, WHIZZER [address], [address], [place], [address] , [facility] 5 13:02:24 Hyperlipid emia 60823952 Active 2024 ARLETTEKRIS QUEZADA, WHIZZER [address], [address], [place], [address] , [facility] 5 13:02:26 Atheroscle rosis of coronary artery without angina pectoris 4221961289006 03 Active 2024 Not Available [facility] 5 13:30:08 Fall Active 2024 Not Available [facility] 5 13:31:11 Anxiety disorder 270675892 Active 2024 Not Available [facility] 5 16:50:45 Depressive disorder 35945271 Active 2024 Not Available [facility] 5 11:58:52 Abnormal Active 2024 Not Available [facility] 5 12:00:40 Muscle weakness 16384390 Active 2024 Not Available [facility] 5 11:10:39 Incoordina tion 834977654 Active 2024 Not Available [facility] 5 11:10:40 Difficulty walking 646951300 Active 2024 Not Available [facility] 5 11:11:53 Problem Notes None recorded. Medical Equipment None Reported. Allergies No known drug allergies Medications Name Sig Start Date Stop Date Status Note LastModified by Organization Details LastModified Time acetaminoph en 325 mg tablet Give 2 tablet by mouth every 6 hours as needed for Pain Do not exceed 3 grams in 24 hours.Tot al 650 mg AND Give 2 tablet by mouth every 6 hours as needed for Elevated Temperatu re > 100 Do not exceed 3 grams in 24 hours.Tot al 650mg 2024 active Not Available Not Available Not Avai lable BuSpar 10 mg tablet Give 7.5 mg by mouth two times a day for Antianxie ty 2024 active Not Available Not Available Not Avai lable Children's Aspirin 81 mg chewable tablet Give 1 tablet by mouth one time a day for CAD 2024 active Not Available Not Available Not Avai lable trazodone 100 mg tablet Give 100 mg by mouth at bedtime for Sleep/ anxiety 2024 active Not Available Not Available Not Avai lable gabapentin 100 mg capsule Give 300 mg by mouth three times a day for Pain Managemen t May cause drowsines s or dizziness . Avoid alcohol. 2024 active Not Available Not Available Not Avai lable Laxative (sennosides ) 8.6 mg tablet Give 1 tablet by mouth every 24 hours as needed for Constipat ion 2024 active Not Available Not Available Not Avai lable Sterapred 5 mg tablet Give 3 tablet by mouth one time a day until 5 04:29 To be given with Food- x's 2 weeks then AND Give 2.5 tablet by mouth one time a day until 5 23:59 12.5mg x's 2 weeks then AND Give 2 tablet by mouth one time a day until 5 23:59 10mg x's 2 weeks then AND Give 1.5 tablet by mouth one time a day until 5 23:59 7.5mg x's 2 weeks then AND Give 1 tablet by mouth one time a day until 5 23:59 5mg x's 2 weeks then AND Give 0.5 tablet by mouth one time a day until 5 23:59 2.5mg x's 2 weeks then DC 12/20 completed Not Available Not Available Not Available oxycodone 5 mg tablet Give 1 tablet by mouth every 4 hours as needed for pain for 1 Day 09/28 completed Not Available Not Available Not Available sodium phosphates 19 gram-7 gram/197 mL enema Insert 1 unit rectally every 24 hours as needed for Constipat ion Use only if Bisacodyl Supposito ry is ineffecti ve 2024 active Not Available Not Available Not Avai lable Narcan 4 mg/actuatio n nasal spray 1 mg in left nostril every 3 minutes as needed for Opioid crisis If desired response is not achieved after 2-3 minutes, give a 2nd dose intranasa lly into alternate nostril; Additiona l doses may be administe red every 2 to 3 minutes in alternati ng nostrils as needed for opioid reversal. 2024 active Not Available Not Available Not Avai lable OneLAX Bisacodyl 10 mg rectal suppository Insert 1 supposito ry rectally every 24 hours as needed for constipat ion Use if Senna is Ineffecti ve 2024 active Not Available Not Available Not Avai lable Vitals Date Recorded Body weight Heart rate Respiratory rate Body temperature Oxygen saturation Oxygen saturation in Arterial blood by Pulse oximetry Systolic blood pressure Diastolic blood pressure Provider Name and Address Organization Details Last Updated DateTime 5 03795.6 3 g 96 /min 18 /min 98.2 [degF] 96 % 96 % 122 mm[Hg] 79 mm[Hg] DANIELLE QUEZADA, WHIZZER [address] [facility], [address], [place], [address], [facility] 5 12:08:32 Date Recorded Body weight Body mass index (BMI) Body height Heart rate Respiratory rate Body temperature Oxygen saturation Oxygen saturation in Arterial blood by Pulse oximetry Systolic blood pressure Diastolic blood pressure Provider Name and Address Organization Details Last Updated DateTime 5 40232 g 26.6 kg/m2 152.4 cm 104 /min 16 /min 97.7 [degF] 97 % 97 % 118 mm[Hg] 72 mm[Hg] Harper Rosales MD [address] [facility] [address], [place], [address], [facility] 5 15:05:33 Date Recorded Body height Heart rate Respiratory rate Body temperature Oxygen saturation Oxygen saturation in Arterial blood by Pulse oximetry Systolic blood pressure Diastolic blood pressure Provider Name and Address Organization Details Last Updated DateTime 5 152.4 cm 96 /min 18 /min 98 [degF] 98 % 98 % 118 mm[Hg] 72 mm[Hg] YARA CABALLERO [address] [place] [address] [address], [place], [address], [facility] 5 19:41:13 Date Recorded Body height Body mass index (BMI) Body weight Heart rate Respiratory rate Body temperature Oxygen saturation Oxygen saturation in Arterial blood by Pulse oximetry Systolic blood pressure Diastolic blood pressure Provider Name and Address Organization Details Last Updated DateTime 5 152.4 cm 26.5 kg/m2 02617.4 8 g 83 /min 18 /min 97.6 [degF] 95 % 95 % 126 mm[Hg] 69 mm[Hg] YARA CABALLERO [address] [place] [address], [facility] [address], [place], [address], [facility] 5 11:10:53 Social History Question Answer Notes LastModified by Organizat ion Details LastModified Time Tobacco Smoking Status Never Smoker DANIELLE QUEZADA CNP [address] [facility] [address], [place], [address], [facility] 09/27/2024 11:20:38 Do You Have An Advance Directive? Yes Information not available 10/02/2024 What Is Your Level Of Alcohol Consumption? None Information not available 09/27/2024 What Is Your Code Status? DNI No G-tube Information not available 09/27/2024 Where Do You Live? Apartment Lives Alone, 3rd Floor, No Elevator. Information not available 10/02/2024 Legal Guardian? No Informati on not available 10/02/2024 Do You Have A Medical Power Of Bingo Caller? Yes Information not available 10/02/2024 What Was The Date Of Your Most Recent Tobacco Screening? 09/27/2024 Information not available 09/27/2024 Do You Have An Out Of Hospital DNR? No Information not available 10/02/2024 What Is Your Relationship Status? Single Information not available 10/02/2024 Do You Use Any Illicit Or Recreational Drugs? No Information not available 09/27/2024 Has Tobacco Cessation Counseling Been Provided? No N/a As Pt Is A Non-smoke r Information not available 10/02/2024 Do You Or Have You Ever Used Any Other Forms Of Tobacco Or Nicotine? No Information not available 09/27/2024 Sex: Unknown Functional Status None recorded. Mental Status None recorded. Family History Relationship Description Onset Age of this Age Resolved Age Notes LastModified by Organization Details LastModified Time Mother Hypertensive disorder Not available 2024 13:16:46 Sister Hypertensive disorder Not available 2024 13:16:46 Father Myocardial infarction Not available 09/27 13:17:03 Medical History No medical history recorded. Gynecological HistoryNo gynecological history recorded. Obstetrics History GPAL:G 0 P 0 0 0 0 Immunizations Vaccine Type Date Status Note Provider Nam e and Address Organization Details Recorded Time Tdap 04/19/2023 completed [facility] 09/27/2024 13:01:36 influenza, unspecified formulation 04/19/2023 completed [facility] 09/27/2024 13:01:50 Past Encounters Encounter ID Performer Location Encounter Start Date Encounter Closed Date Diagnosis/Indication Diagnosis SNOMED-CT Code Diagnosis ICD10 Code Diagnosis Note [id number] DANIELLE QUEZADA CNP [facility] [address] [place] [address] 09/27/2024 10:45:11 10/02/2024 13:55:38 Polymyalgia rheumatica 51786407 M35.3 Flare up with bilateral lower extremity weakness and inability to walk.ESR and CPR significan tly elevated.X -rays left hip after fall negative.T reated Solu-medro l IV. Currently is on prednisone taper.15 mg daily for 2 weeks, then wean 2.5 mg q 2 weekly.Praveen lofen 10 mg TID for pain.Will tray gabapentin 100 mg TID for joint burning pain.Yary nue monitor the pain and effectiven ess, and needs to wean off as able. Will recheck ESR, CRP as needed if patient has s/s of flare up. History of fall 48751809 9 Z91.81 S/t PMR flare up and weakness.P T and OT for strength, gait training and safety.Mor se screen on 09/27/24, scored high risk. Idiopathic pulmonary fibrosis 056973875 J84.112 OFev 150 mg BID.Contin ue monitor. Insomnia 903550527 G47.0 0 Prazosin 1 mg qHS.Trazod one 100 mg qHS.Stable , continue monitor. Coronary arteriosclerosis 29763630 I25.10 Isosorbide mononitrat e 30 mg ER daily.Resu me aspirin 81 mg daily.VSS, continue to monitor. Mixed anxi ety and depressive disorder 665438602 F41.8 Buspirone 7.5 BID.Mood is stable, continue monitor.Ps y therapy PRN Hyperglycemia 51535945 R 73.9 Likely due to steroid.Gl ucose stable, will continue monitor. Hyperlipidemia 05762991 E78.5 Continue atorvastat in 40 mg daily. [id number] Harper Rosales MD [facility] [address] [place] [address] 10/02/2024 13:38:53 10/04/2024 11:04:53 Polymyalgia rheumatica 51561020 M35.3 Per inpt notes, not completely c/w PMR, but txed as that due to very high ESR/CRP.Wi ll increase gabapentin from 100 mg TID to 200 mg TID.Contin ue slow prednisone taper currently on 15 mg to be decreased 2.5 mg q 2 wks (first decrease on 10/10), baclofen 10 mg TID, Salonpas patch to left hip qd, and APAP 650 mg q 6 hrs prn.Very deconditio inga.Needs PT/OT for strengthen ing, balance, gait training, safety and function.C ontinue fall precaution s.Monitor for safety.Mon itor pain control.F/ U with rheum as planned. History of fall 70609486 9 Z91.81 PT/OT as above.Hali tor for safety. Coronary arteriosclerosis 70585629 I25.10 No recent sxs.Contin ue isosorbide mononitrat e 30 mg ER qd, ASA 81 mg qd and atorvastat in 40 mg qd.Monitor for cardio sxs.F/U with cardio as planned. Idiopathic pulmonary fibrosis 758696039 J84.112 Continue Ofev 150 mg BID.Monito r resp status.F/U with pulmonary as planned. Insomnia 217271298 G47.0 0 Meds as above,Hali tor sleep patterns. Mixed anxi ety and depressive disorder 138378616 F41.8 F32.89 Mood good today.Cont inue buspirone 7.5 BID, prazosin 1 mg qhs and trazadone 100 mg qhs.Mood is stable, continue monitor.Ps y therapy PRN Hyperglycemia 60455719 R 73.09 Glucose only mildly elevated here.With HgA1C of 6.4 inpt.Likel y due to steroids.C ontinue to encourage healthy eating.Mon itor as outpt. Hyperlipidemia 57833453 E78.49 Continue atorvastat in 40 mg qdMonitor labs as outpt. [id number] [address]ARA CABALLERO DR, [place] [address] 10/05/2024 18:12:50 10/11/2024 15:02:23 Polymyalgia rheumatica 79545794 M35.3 continues with burning pain in finger joint and legswill increase gabapentin to 300 mg TIDCurrent ly is on prednisone taper.15 mg daily for 2 weeks, then wean 2.5 mg q 2 weekly.Praveen lofen 10 mg TID for pain.Yary nue monitor the pain and effectiven ess, [id number] YARA CABALLERO [facility] [address] [place] [address] 10/12/2024 10:28:50 10/16/2024 10:09:49 Polymyalgia rheumatica 58292050 M35.3 polymyalgi a rheumatica -Per inpt notes, sx not completely c/w PMR, but txed as that due to very high ESR/CRP.co ntinue gabapentin 300 mg TID -Currently is on prednisone taper.15 mg daily for 2 weeks, then wean 2.5 mg q 2 weekly. (first decrease on 10/10)cont baclofen 10 mg TIDcont Salonpas patch to left hip qd, and APAP 650 mg q 6 hrs prn.follow up with PCP as planned History of fall 86746063 9 Z91.81 Monitor for safety. Coronary arteriosclerosis 00737465 I25.10 Continue isosorbide mononitrat e 30 mg ER qd, ASA 81 mg qd and atorvastat in 40 mg qd.Monitor for cardio sxs.F/U with cardio as planned. Idiopathic pulmonary fibrosis 360457949 J84.112 Continue Ofev 150 mg BID.Monito r resp status.F/U with pulmonary as planned. Mixed anxi ety and depressive disorder 741944830 F41.8 F32.89 Continue buspirone 7.5 BID, prazosin 1 mg qhs and trazadone 100 mg qhs. Insomnia 930428263 G47.0 0 Meds as above, Hyperglycemia 10316668 R 73.09 Glucose only mildly elevatedWi th HgA1C of 6.4 inpt.Likel y due to steroids.C ontinue to encourage healthy eating.Mon itor as outpt. Hyperlipidemia 58149375 E78.49 Continue atorvastat in 40 mg qdMonitor labs as outpt. Health Concerns Section Related Observation LastModified by Organization Detai ls LastModified Time None Recorded Concern Status LastModified by Organization Details LastModified Time None Recorded Advance Directives Directive Y: Payers Encounter Date Sequence Insurance Name Policy Number Policy Haywood Covered Member ID Haywood Member ID Guarantor Name 09/27/2024 1 [facility] - DOS ON OR AFTER 2022 - MEDICARE [place]/ADV ANTAGE - PPO) Patricia Alexandre [id number] Patricia Alexandre 10/02/2024 1 [facility] - DOS ON OR AFTER 2022 - [place]/ADV ANTAGE - PPO) Patricia Alexandre [id number] Patricia Alexandre 10/05/2024 1 [facility] - DOS ON OR AFTER 2022 - [place]/ADV ANTAGE - PPO) Patricia Alexandre [id number] Patricia Alexandre 10/12/2024 1 [facility] - DOS ON OR AFTER 2022 - [place]/ADV ANTAGE - PPO) Patricia Alexandre [id number] Patricia Alexandre Notes Date Note Type Note Provider Name and Address Organization Details Recorded Time 09/27/2024 text/html Patricia is 58 y/o a Malawian-speaking female admitted to [facility] on 09/26/24 from [facility]. PMH significant for Polymyalgia rheumatica, positive MADY, and RF, idiopathic pulmonary fibrosis, CAD, HLD and depression. Pt presented to [facility] ER on 09/23/24 due to increase increased weakness and inability to walk to with associated upper extremity and lower extremity joint pain and a recent fall due to left side weakness.Prior this ED visit, she was admitted in July for PMR flare, treated with steroids and sent home with outpatient rehab. Pt was discharged from the rehab in Aug.She also had appointment with pain management on 09/24/24.Hospital work up consistent with PMR flare.Recent fall due to weakness, X-rays left hip was negative for fx.WBC normal, no sepsis, ESR and CPR significantly elevated. (ESR 73 and CRP 13.76) Pt was treated with IV Solu-medrol and discharged prednisone taper.Pain treated with morphine and hydromorphone during the hospitalization.Histo ry elevated blood sugars likely due to steroids. HbA1C was 6.4, recommended to follow low calorie diet and monitor blood sugars while on steroids.She was on aspirin 81 mg for CAD/HLD and hold during the hospitalization and had Lovenox. On exam today, Patricia was sitting in her chair, finished her lunch, NAD.Pt reports overall her pain has improved with prednisone and baclofen, but continues to have burning pain on her fingers joints, and legs.Moves all extremities but LLE weakness.Pt currently takes baclofen 10 mg TID, it helps relieving pain but wants medication for the joint burning pain.No other acute concerns today. MOLST form reviewed. DNI and no G-tube.Cheng screen done on 09/27/24, scored high risk. DANIELLE QUEZAAD, WHIZZER [address] [facility], [address], [place], [address], [place] [facility] 09/27/2024 15:11:28 10/02/2024 text/html This is a 58 yo woman who is here for rehab after an acute hospitalization for a severe PMR flare causing inability to walk.She also has mod/severe ILD at baseline causing chronic SOB and asthenia. She presented to the [facility] ED on 09/23 due to increasing leg pain and weakness.She had been inpt at [facility] 07/31-08/07 for similar sxs and was txed with solumedrol and then put on prednisone taper. She had been doing well at home until about a week [employer] when her left leg gave out and she fell. Since that time she had increased body aches and weakness.She was still on her prednisone taper and was taking her usual baclofen, with no relief.ED eval included nl VS, imaging which was non-acute and labs which showed CRP>20, ESR-73, plts 444, Na+134, Glu-143, and were otherwise neg.She was admitted due to being unable to bear wt on legs due to pain.She was txed with solumedrol and then transitioned to po prednisone to do a prolonged taper.She reportedly missed her initial rheum appt due to admission and had been rescheduled for November, but PCP was trying to get her in sooner.In terms of her pulmonary fibrosis, she remained stable and the only new med was the prednisone.She had mildly elevated sugars attributed to the steroids and HgA1C was 6.4, advised on low carb diet. She was transferred here on 09/26. Since here she has been working with rehab.She remains mod assist for toileting and max assist for bathing, but otherwise is supervision.She has continued to c/o burning pain and was started on gabapentin on 09/27.I see her with a estonian speaking staff member.She tells me burning pain is a little better, but still bad.No other c/o. Her PMH includes PMR with + MADY and RF, idiopathic pulmonary fibrosis, CAD, elevated blood sugars when on prednisone (HgA1C 6.4), HLD and insomnia, anxiety/depression. Harper Rosales MD [address] [facility], [address], [place], [address], [facility] 10/02/2024 22:44:50 10/05/2024 text/html This is a 58 yr old female seen for acute rounding visit. she is here for rehab after an acute hospitalization for a severe PMR flare causing inability to walk. She also has mod/severe ILD at baseline causing chronic SOB and asthenia. Recently started on gabapentin for burning pain on her fingers joints, and legs. pain has improved but continues to be bothersome. YARA CABALLERO [address] [facility], [address], [place], [address], [facility] 10/10/2024 19:41:49 10/12/2024 text/html Discharge Summar y Summarized from MD Tao This is a 58 yo woman with a PMH includes PMR with + MADY and RF, idiopathic pulmonary fibrosis, CAD, elevated blood sugars when on prednisone (HgA1C 6.4), HLD and insomnia, anxiety/depression. Admitted to [place] for rehab after an acute hospitalization for a severe PMR flare causing inability to walk.She also has mod/severe ILD at baseline causing chronic SOB and asthenia. She presented to the [facility] ED on 09/23 due to increasing leg pain and weakness.She was admitted due to being unable to bear wt on legs due to pain.She was txed with solumedrol and then transitioned to po prednisone to do a prolonged taper. She had been inpt at [facility] 07/31-08/07 for similar sxs and was txed with solumedrol and then put on prednisone taper. In terms of her pulmonary fibrosis, she remained stable and the only new med was the prednisone.She had mildly elevated sugars attributed to the steroids and HgA1C was 6.4, advised on low carb diet. She has continued to c/o burning pain and was started on gabapentin on 09/27. Medically she has been stable, she has met goals with therapy. she can be discharged to home with medications and VNA with services. YARA CABALLERO [address] [facility], [address], [place], [address], [facility] 10/12/2024 11:43:33 OBGyn Episode No OBEpisode recorded.
--- OUTSIDE RECORDS SUMMARY | 2024-11-28 13:01 | XMS_ITS | Encounter Summary ---
Author Organization [facility] Address [address] [place] [address] Care Team Providers Care Oven Equipment Repairer Name Role Phone Lex Rich MD Primary Care Pr ovider Encounter Details Date Type Department Care Team (Late Contact Info) Description 09/27/2024 Lab Requisition [facility] - Main Lab 299 [facility] [place] [address] Mainor Crawford MD 38 [facility] [address] [place], [address] Polymyalgia rheumatica ([facility]/HCC V24) Social History Tobacco Use Types Packs/Day Years [...] Department Care Team (Late Contact Info) Description 12/31/2024 1:45 PM EDT Appointment [facility] Neurodiagnostic [address] [place] [address] 01/01/2025 10:30 AM EDT [facility] [address] [facility] [address] [place] [phone] Aysha Hernandez MD 175 [facility] [address] [place] [address] 01/02/2025 10:15 AM EDT Consult Orthopedic Surgery - [place] 250 [address] [facility] [address] [place] [phone] Diony Toledo DPM 175 [facility] 250 [place] [address] 01/07/2025 1:45 PM EDT Appointment [facility] Neurodiagnostic [address] [place] [phone] 02/22/2025 9:45 AM EDT Office Visit Adult Medicine South - [address] [phone] Lex Rich MD [address] [place] [address] 03/13/2025 11:10 AM EDT Appointment Radiology Department - [address] [phone] 05/10/2025 10:45 AM EDT Appointment [facility] - [address] [phone] documented as of this encounter Procedures Procedure Name Priority Date/Time Associated Diagnosis Comments COMPLETE BLOOD COUNT Routine 09/27/2024 4:53 AM EST Polymyalgia rheumatica (CMS/HCC) COMPREHENSIVE METABOLIC PANEL Routine 09/27/2024 4:53 AM EST Polymyalgia rheumatica (CMS/HCC) documented in this encounter Results * (ABNORMAL) Comprehensive metabolic panel (09/27/2024 4:53 AM EST) Sodium 134 133 - 145 mmol/L LAB CHEMISTRY METHOD 09/27/2024 10:[address] [facility] Potassium 3.8 3.5 - 5.5 mmol/L LAB CHEMISTRY METHOD 09/27/2024 10:[address] [facility] Chloride 97 96 - 110 mmol/L LAB CHEMISTRY METHOD 09/27/2024 10:[address] [facility] CO2 30 21 - 32 mmol/L LAB CHEMISTRY METHOD 09/27/2024 10:[address] [facility] Anion Gap 7 3 - 11 LAB CHEMISTRY METHOD 09/27/2024 10:[address] [facility] Glucose 108(H) 70 - 100 mg/dL LAB CHEMISTRY METHOD 09/27/2024 10:[address] [facility] BUN 19 5 - 25 mg/dL LAB CHEMISTRY METHOD 09/27/2024 10:[address] [facility] Creatinine 0.57 0.50 - 1.10 mg/dL LAB CHEMISTRY METHOD 09/27/2024 10:[address] [facility] eGFR 106 >=60 mL/min/1. 73m2 LAB CHEMISTRY METHOD 09/27/2024 10:[address] [facility] Comment:Calculation based on the??Chronic Kidney Disease Epidemiology Collaboration (CKD-EPI) equation refit??without adjustment for race. BUN/Creatinine Ratio 33.3 LAB CHEMISTRY METHOD 09/27/2024 10:[address] [facility] Calcium 8.6 8.5 - 10.5 mg/dL LAB CHEMISTRY METHOD 09/27/2024 10:[address] [facility] AST (SGOT) 35 10 - 42 unit/L LAB CHEMISTRY METHOD 09/27/2024 10:[address] [facility] ALT (SGPT) 60 10 - 60 unit/L LAB CHEMISTRY METHOD 09/27/2024 10:[address] [facility] Alkaline Phosphatase 100 42 - 121 unit/L LAB CHEMISTRY METHOD 09/27/2024 10:[address] [facility] Total Protein 5.8(L) 6.0 - 8.0 g/dL LAB CHEMISTRY METHOD 09/27/2024 10:[address] [facility] Albumin 2.3(L) 3.2 - 5.0 g/dL LAB CHEMISTRY METHOD 09/27/2024 10:[address] [facility] Total Bilirubin 0.3 0.0 - 1.4 mg/dL LAB CHEMISTRY METHOD 09/27/2024 10:[address] [facility] Blood Venous blood specimen / Unknown Venipuncture / Unknown 09/27/2024 4:53 AM EST 09/27/2024 8:45 AM EST us Mainor Crawford MD LAB BLOOD ORDERABLES Final Resul t [facility] [address] [place] [address], * (ABNORMAL) Complete blood count (09/27/2024 4:53 AM EST) WBC 8.7 4.8 - 10.8 K/mcL LAB HEMETOLOGY METHOD 09/27/2024 9:[address] [facility] RBC 3.60(L) 3.80 - 4.80 M/mcL LAB HEMETOLOGY METHOD 09/27/2024 9:[address] [facility] Hemoglobin 10.5(L) 11.5 - 16.0 g/dL LAB HEMETOLOGY METHOD 09/27/2024 9:[address] [facility] Hematocrit 33.3(L) 35.0 - 47.0 % LAB HEMETOLOGY METHOD 09/27/2024 9:[address] [facility] MCV 92.2 79.0 - 98.0 FL LAB HEMETOLOGY METHOD 09/27/2024 9:[address] [facility] MCH 29.1 27.0 - 32.0 pcg LAB HEMETOLOGY METHOD 09/27/2024 9:33 AM EST [facility] MCHC 31.5(L) 32.0 - 37.0 g/dL LAB HEMETOLOGY METHOD 09/27/2024 9:[address] [facility] RDW 17.8(H) 11.0 - 15.0 % LAB HEMETOLOGY METHOD 09/27/2024 9:[address] [facility] Platelets 397 130 - 400 K/mcL LAB HEMETOLOGY METHOD 09/27/2024 9:[address] [facility] MPV 9.2 7.0 - 11.0 FL LAB HEMETOLOGY METHOD 09/27/2024 9:[address] [facility] NRBC 0.0 <1.0 % LAB HEMETOLOGY METHOD 09/27/2024 9:[address] [facility] NRBC Absolute 0.00 <0.10 K/mcL LAB HEMETOLOGY METHOD 09/27/2024 9:[address] [facility] Blood Venous blood specimen / Unknown Venipuncture / Unknown 09/27/2024 4:53 AM EST 09/27/2024 8:45 AM EST us Mainor Crawford MD LAB BLOOD ORDERABLES Final Resul t [facility] [address] [place] [address], documented in this encounter Visit Diagnoses Diagnosis Polymyalgia rheumatica (CMS/HCC V24) Polymyalgia rheumatica Encounter for screening mammogram for breast cancer documented in this encounter Care Teams Oven Equipment Repairer Relationship Specialty Start Date End Date Lex Rich MD [address] [place] [address] PCP - General Internal Medicine 05/24/24 documented as of this encounter
--- OUTSIDE RECORDS SUMMARY | 2024-11-28 13:01 | XMS_ITS | Encounter Summary ---
Author Organization [employer] Address [address] [facility] [address] [place] [address] Care Team Providers Care Electrical Journeyman Name Role Phone Unavailable Primary Care Provider Unavailabl e Reason for Visit * Reason Onset Date Comments New Patient 04/12/2023 Encounter Details Date Type Department Care Team (Late st Contact Info) Description 04/12/2023 Telephone [facility] [address] [place] [address] Oumar Chen MD 230 [place] [address] New Patient Social History Tobacco Use Types [...] PM EDT Tc to pt, to offer Oral Pathologist appt, No answer answer, could not leave voicemail due to not being set up . documented in this encounter Plan of Treatment Not on file documented as of this encounter Visit Diagnoses Not on filedocumented in this encounter
--- OUTSIDE RECORDS SUMMARY | 2024-11-28 13:01 | XMS_ITS | Encounter Summary ---
Author Organization [facility] Address [address] [place] [address] Care Team Providers Care Mill Stenciler Name Role Phone Lex Rich MD Primary Care Pr ovider Reason for Visit * Therapy (Routine) - Closed Specialty Diagnoses / Procedures Referred By Contac t Referred To Contact Pulmonology Diagnoses ILD (interstitial lung disease) ([facility] V24, [facility] V28) Procedures Pulmonary function testing: Spirometry with Bronchodilator, Carbon Monoxide Diffusing Capacity Aysha Hernandez MD [address] [address] Phone: tel: fax: Pulmon[address] [address] Phone: tel: fax: Referral ID Status Reason Start Date Expiration Date Visits Re quested Visits Authorized [id number] Closed 08/23/2024 08/23/2025 1 1 Encounter Details Date Type Department Care Team (Latest Contact Info) Description 11/23/2024 11:00 AM EDT [facility] [address] [phone] Smita Acosta MD 175 [place] [address] ILD (interstitial lung disease) (CMS/[facility] V24, [facility] V28) Social History Tobacco Use Types Packs/Day Years Used Date Smoking Tobacco: Never Smokeless Tobacco: Never Alcohol Use Standard Drinks/Week Comments Not Currently 0 (1 standard drink = 0.6 oz pur e alcohol) rarely Housing Instability Answer Date Recorde d Are you worried that in the next 2 months you may not have stable housing? No 10/18/2024 Food Access & Nutrition Answer Date Rec orded Do you have access to a vari ety of food including fruits and vegetables? Yes 10/18/2024 Access to Healthcare Answer Date Record ed Within the last 3 months, ho w many times did you visit the emergency department for your medical care? 2 10/18/2024 Health Literacy Answer Date Recorded How often do you need to hav e someone help you when you read instructions, pamphlets, or other written material from your doctor or pharmacy? Often 10/18/2024 Caregiver: How often do you need to have someone help you when you read instructions, pamphlets, or other written material from your doctor or pharmacy? Not on file 10/18/2024 Financial Risk Answer Date Recorded How hard is it for you to pa y for the very basics like food, housing, medical care, and air conditioning / heating? Not asked 10/18/2024 Transportation Answer Date Recorded Has the lack of transportati on kept you from meetings, work, or from getting things needed for daily living? No Has the lack of transportati on kept you from medical appointments or from getting medications? No 10/18/2024 Social Isolation Answer Date Recorded How often do you feel lonely or isolated from th ose around you? Never 10/18/2024 Food Risk Answer Date Recorded Within the past 12 months we worried whether our food would run out before we got money to buy more. Never true 10/18/2024 Within the past 12 months th e food we bought just didn't last and we didn't have money to get more. Never true 10/18/2024 Dependent Care Answer Date Recorded Do you need help finding or paying for care for your loved ones. For example, school child care attendant or elderly care for an older adult? No 10/18/2024 Education Answer Date Recorded Do you think completing more education or training, like finishing a GED, going to college, or learning a trade, would be helpful for you? N/A 10/18/2024 Employment and Income Answer Date Recor ded During the last four weeks, have you been actively looking for work? Patient declined 10/18/2024 Living Situation Answer Date Recorded What is your living situation? 0 10/18/2024 Comments No Sex and Gender Information Value Date Recorded Sex Assigned at Female 08/30/2024 4:13 PM EST Legal Sex Female 8:19 PM EST Gender Identity Female 08/30/2024 4:13 PM EST Sexual Orientation Straight 08/30/2024 4: 13 PM EST documented as of this encounter Progress Notes * Radha Du - 11/23/2024 11:00 AM EDT PFT performed documented in this encounter Plan of Treatment Upcoming Encounters Date Type Department Care Team (Late st Contact Info) Description 12/31/2024 1:45 PM EDT Appointment [facility] Neurodiagnostic [address] [place] [phone] 01/01/2025 10:30 AM EDT Office Visit Pulmonolgy [facility] [address] [phone] Aysha Hernandez MD [address] [address] 01/02/2025 10:15 AM EDT Consult Orthopedic Surgery [facility] [address] [phone] Diony Toledo DPLynn [address] [address] 01/07/2025 1:45 PM EDT Appointment [facility] Neurodiagnostic 271 [place] [address] 02/22/2025 9:45 AM EDT Office Visit Adult Medicine [address] [phone] Lex Rich MD [address] [place] [address] 03/13/2025 11:10 AM EDT Appointment Radiology Department - [address] [phone] 05/10/2025 10:45 AM EDT Appointment [facility] - [address] [phone] documented as of this encounter Procedures Procedure Name Priority Date/Time Associated Diagnosis Comments PULMONARY FUNCTION TESTING Routine 11/23/2024 11:29 AM EDT ILD (interstitial lung disease) ([facility] V24, [facility] V28) documented in this encounter Results * Pulmonary function testing: Spirometry with Bronchodilator, Carbon Monoxide Diffusing Capacity (11/23/2024 11:29 AM EDT) Impressions Smita Acosta MD - 11/23/2024 11:29 AM EDT FEV1/FVC 86%. FEV1 1.15 or 49%. FVC 44%. Good bronchodilator response of 11% change TLC 70%. RV 95%. DLCO 40% (adjusted 93%) Mild obstruction with good bronchodilator response. ??Mild restriction. ??Mild decrease in diffusion. Finding consistent with mixed obstructive and restrictive process. ??Clinical correlation necessary. Aysha Hernandez MD PFT ORDERABLES Final Result documented in this encounter Visit Diagnoses Diagnosis ILD (interstitial lung disease) ([facility] V24, [facility] V28) Postinflammatory pulmonary fibrosis Encounter for screening mammogram for breast cancer documented in this encounter Additional Health Concerns Assessment Noted Time PHQ-9 Depression Total Score: 0 10/19/19 25 8:17 AM EDT documented as of this encounter Care Teams Mill Stenciler Relationship Specialty Start Date End Date Lex Rich MD [address] [place] [address] PCP - General Internal Medicine 05/24/24 documented as of this encounter
--- OUTSIDE RECORDS SUMMARY | 2024-11-28 13:01 | XMS_ITS | Encounter Summary ---
Author Organization [facility] Address [address] [place] [address] Care Team Providers Care Irrigation Specialist Name Role Phone Lex Rich MD Primary Care Pr ovider Encounter Details Date Type Department Care Team ([facility] Contact Info) Description 09/19/2024 Billing Patient Not Present Adult Medicine [address] [phone] [place] Social History Tobacco Use Types Packs/Day [...] Info) Description 12/31/2024 1:45 PM EDT Appointment [facility] Neurodiagnostic [address] [place] [phone] 01/01/2025 10:30 AM EDT Office Visit [facility] [address] [phone] Aysha Hernandez MD 175 [facility] 200 [place] [address] 01/02/2025 10:15 AM EDT Consult Orthopedic Surgery - [place] 250 175 [facility] 250 [place] [phone] Diony Toledo, DPM [address] [address] 01/07/2025 1:45 PM EDT Appointment [facility] Neurodiagnostic [address] [place] [address] 02/22/2025 9:45 AM EDT Office Visit [facility] South - [address] [phone] Lex Rich MD [address] [place] [address] 03/13/2025 11:10 AM EDT Appointment Radiology Department - [address] [phone] 05/10/2025 10:45 AM EDT Appointment [facility] - [address] [phone] documented as of this encounter Visit Diagnoses Not on filedocumented in this encounter Care Teams Irrigation Specialist Relationship Specialty Start Date End Date Lex Rich MD [address] [place] [address] PCP - General Internal Medicine 05/24/24 documented as of this encounter
--- OUTSIDE RECORDS SUMMARY | 2024-11-28 13:01 | XMS_ITS | Encounter Summary ---
Author Organization [facility] Address [address] [place] [address] Care Team Providers Care Wheel Polisher Name Role Phone Lex Rich MD Primary Care Pr ovider Reason for Visit * Reason Onset Date Comments Fitting for DME 11/22/2024 Encounter Details Date Type Department Care Team ([facility] Contact Info) Description 11/22/2024 Telephone Adult Medicine [address] [phone] Xiao Cook LPN Fitting for DME Social [...] care for your loved ones. For example, child welfare social worker or elderly care for an older adult? [...] Progress Notes * Xiao Cook LPN - 11/23/2024 12:22 PM EDT Rx signed and faxed to [employer] @ [phone] Also entered into the portal * Xiao Cook LPN - 11/22/2024 1:48 PM EDT Received request from Dr Rich Pt needs shower chair Called pt to see if she needs one with back or back and arms Wants shower chair with back Rx to Dr Rich to sign documented in this encounter Plan of Treatment Upcoming Encounters Date Type Department Care Team (Late st Contact Info) Description 12/31/2024 1:45 PM EDT Appointment [facility] Neurodiagnostic [address] [place] [phone] 01/01/2025 10:30 AM EDT Office Visit Pulmonolgy - [place] [address] [phone] Aysha Hernandez MD [address] [address] 01/02/2025 10:15 AM EDT Consult Orthopedic Surgery - [place] [address] [phone] Diony Toledo DPM [address] [address] 01/07/2025 1:45 PM EDT Appointment [facility] Neurodiagnostic [address] [place] [phone] 02/22/2025 9:45 AM EDT Office Visit [facility] South - [address] [phone] Lex Rich MD [address] [place] [address] 03/13/2025 11:10 AM EDT Appointment Radiology Department - [address] [phone] 05/10/2025 10:45 AM EDT Appointment [facility] - [place] [address] [place] [phone] documented as of this encounter Visit Diagnoses Diagnosis Mobility impaired- Primary Other ill-defined conditions Type 2 diabetes mellitus with diabetic polyneuropathy, without long-term current use of insulin ([facility] V24, [facility] V28) Primary osteoarthritis of right hip Chronic midline low back pain without sciatica Polymyalgia rheumatica ([facility] V24) Polymyalgia rheumatica Venous insufficiency Unspecified venous (peripheral) insufficiency Encounter for screening mammogram for breast cancer documented in this encounter Orders General Supply Count Last Ordered Date First Or dered Date SHOWER CHAIR 1 11/22/2024 documented in this encounter Additional Health Concerns Assessment Noted Time PHQ-9 Depression Total Score: 0 10/19/19 25 8:17 AM EDT documented as of this encounter Care Teams Wheel Polisher Relationship Specialty Start Date End Date Lex Rich MD 4 [place] [address] PCP - General Internal Medicine 05/24/24 documented as of this encounter
--- OUTSIDE RECORDS SUMMARY | 2024-11-28 13:01 | XMS_ITS | Encounter Summary ---
Author Organization [facility] Address [address] [place] [address] Care Team Providers Care Pharmacy Director Name Role Phone Lex Rich MD Primary Care Pr ovider Reason for Visit * Reason Onset Date Comments faxed order 11/22/2024 Boris blakea orde rs (tracking # [id number]) Encounter Details Date Type Department Care Team ([facility] Contact Info) Description 11/22/2024 Telephone Adult Medicine [address] [phone] Lex Rich MD [address] [place] [address] faxed order (Boris vna orders (tracking # [id number])) Social History Tobacco Use Types Packs/Day Years [...] care for your loved ones. For example, early childhood special educator or elderly care for an older adult? [...] as of this encounter Progress Notes * Helen Barragan MA - 11/27/2024 9:11 AM EDT Order signed,scanned,e-faxed * Danna Benson - 11/22/2024 2:14 PM EDT Boris vna orders (tracking # [id number]) received please sign and fax to [phone] documented in this encounter Plan of Treatment Upcoming Encounters Date Type Department Care Team (Late st Contact Info) Description 12/31/2024 1:45 PM EDT Appointment [facility] Neurodiagnostic [address] [place] [phone] 01/01/2025 10:30 AM EDT Office Visit Pulmonolgy [facility] [address] [phone] Aysha Hernandez MD [address] [address] 01/02/2025 10:15 AM EDT Consult Orthopedic Surgery - [place] [address] [phone] Diony Toledo DPM [address] [address] 01/07/2025 1:45 PM EDT Appointment [facility] Neurodiagnostic [address] [place] [address] 02/22/2025 9:45 AM EDT Office Visit Adult Medicine [facility] - [address] [phone] Lex Rich MD [address] [place] [address] 03/13/2025 11:10 AM EDT Appointment Radiology Department - [address] [place] [address] 05/10/2025 10:45 AM EDT Appointment Bone Density - [place] [address] [place] [phone] documented as of this encounter Visit Diagnoses Not on filedocumented in this encounter Additional Health Concerns Assessment Noted Time PHQ-9 Depression Total Score: 0 10/19/19 25 8:17 AM EDT documented as of this encounter Care Teams Pharmacy Director Relationship Specialty Start Date End Date Lex Rich MD [address] [place] [address] PCP - General Internal Medicine 05/24/24 documented as of this encounter
--- OUTSIDE RECORDS SUMMARY | 2024-11-28 13:01 | XMS_ITS | Clinical Summary ---
Author Organization [employer] Address [address] [facility] 7[address] [place] [address] Care Team Providers Care Hat Blocker Name Role Phone Unavailable Primary Care Provider [...] patient's age to complete this topic Insurance [facility] STANDARD MEDICARE
--- OUTSIDE RECORDS SUMMARY | 2024-11-28 13:01 | XMS_ITS | Clinical Summary ---
Author Organization [facility] ethology Address [address] [place], [place] [address] Phone Care Team Providers Care Silk Soaker Name Role Phone Lex Rich MD Primary Care Pr ovider Allergies No known active allergies Medications prazosin (MINIPRESS) 1 mg capsule Take 1 capsule (1 mg total) by mouth at bedtime. 07/13/20 24 Active traZODone (DESYREL) 100 mg tablet Take 1 tablet (100 mg total) by mouth at bedtime. 07/05/20 24 Active busPIRone (BUSPAR) 7.5 mg tablet Take 1 tablet (7.5 mg total) by mouth 2 (two) times a day. 07/05/20 24 Active aspirin 81 mg chewable tablet Chew 1 tablet (81 mg total) 1 (one) time each day. Active nintedanib (Ofev) 150 mg capsule Take 1 capsule (150 mg total) by mouth every 12 (twelve) hours. 60 capsule 11 08/30/19 25 026 Active predniSONE (DELTASONE) 10 mg tablet TAKE 1 TABLET BY MOUTH EVERY DAY 30 tablet 5 10/16/19 25 Active predniSONE 5 mg tablet,delayed release (DR/EC) Take by mouth 1 (one) time each day at the same time. Give 3 tablet by mouth one time a day until 10/10/2024 04:29 To be given with Food- x's 2 weeks then AND Give 2.5 tablet by mouth one time a day until 10/24/2024 23:59 12.5mg x's 2 weeks then AND Give 2 tablet by mouth one time a day until 11/07/2024 23:59 10mg x's 2 weeks then AND Give 1.5 tablet by mouth one time a day until 11/21/2024 23:59 7.5mg x's 2 weeks then AND Give 1 tablet by mouth one time a day until 12/05/2024 23:59 5mg x's 2 weeks then AND Give 0.5 tablet by mouth one time a day until 12/19/2024 23:59 2.5mg x's 2 weeks then DC 11/22/2024 12/06/2024 10/12/19 25 025 Active baclofen (LIORESAL) 10 mg tabletIndications: Polymyalgia rheumatica ([facility] V24) Take 1 tablet (10 mg total) by mouth 3 (three) times a day. 270 each 10/19/19 25 025 Active gabapentin (NEURONTIN) 300 mg capsuleIndications :Type 2 diabetes mellitus with diabetic polyneuropathy, without long-term current use of insulin ([facility] V24, [facility] V28) Take 1 capsule (300 mg total) by mouth at bedtime. 90 each 11/23/19 25 025 Active rosuvastatin (CRESTOR) 10 mg tabletIndications: Mixed hyperlipidemia Take 1 tablet (10 mg total) by mouth 1 (one) time each day. 90 each 1 11/23/19 25 025 Active lidocaine (Lidoderm) 5 % patchIndications:P rimary osteoarthritis of right hip,Chronic midline low back pain without sciatica Apply 1 patch topically 1 (one) time each day. Remove & discard patch within 12 hours or as directed by . 30 each 11/23/19 25 025 Active cholecalciferol (VITAMIN D-3) 50 mcg (2,000 unit) tabletIndications: Osteopenia, unspecified location Take 1 tablet (2,000 Units total) by mouth 1 (one) time each day. 90 tablet 3 11/23/19 25 026 Active albuterol HFA (PROAIR HFA ; PROVENTIL HFA ; VENTOLIN HFA) 90 mcg/actuation inhaler Inhale 2 puffs by mouth every 4 (four) hours if needed for wheezing. Inhale 2 Puffs into the lungs every 6 hours as needed for Cough, Wheezing or Shortness of Breath for up to 30 days 6.7 g 11 11/24/19 25 026 Active albuterol HFA (PROAIR HFA ; PROVENTIL HFA ; VENTOLIN HFA) 90 mcg/actuation inhaler Inhale 2 Puffs into the lungs every 6 hours as needed for Cough, Wheezing or Shortness of Breath for up to 30 days 05/04/20 23 025 Discontin ued(Reord er) atorvastatin (LIPITOR) 40 mg tablet Take 1 tablet (40 mg total) by mouth at bedtime. 025 Discontin ued(Dupli chance order) Active Problems Problem Noted Date Diagnosed Date Type 2 diabetes mellitus wit hout complication, without long-term current use of insulin ([facility] V24, [facility] V28) 10/21/2024 Assessment & Plan (11/22/2024 1:27 PM EDT): Last A1c was 6.7. Opting for lifestyle management at this time. Counseling was provided. Will repeat labs in 3 months Will check urine microalbumin ratio. Referred for diabetic eye exam Gabapentin is prescribed for neuropathy. She will use the medication at night. States she has used gabapentin in the past and it was helpful Orders: Microalbumin creatinine urine ratio; Future Ambulatory referral to Ophthalmology; Future gabapentin (NEURONTIN) 300 mg capsule; Take 1 capsule (300 mg total) by mouth at bedtime. Hemoglobin A1c; Future Bilateral calcaneal spurs 10/19/2024 Polymyalgia rheumatica ([facility] V24) 10/18/2024 Assessment & Plan (11/22/2024 1:27 PM EDT): She seems to be doing much better. She will continue baclofen 10 mg 3 times daily. [facility] rheumat[facility] appt on [facility] She will benefit from shower chair due to her neuropathy and arthritis in the back as well as bone spurs in the feet with bilateral foot pain. Message sent to Xiao Assessment & Plan (10/18/2024 12:05 PM EDT): She will continue on the prednisone taper which she was discharged on from the rehab/hospital She will keep appointment with rheumatology on November She will continue with the baclofen 10 mg 3 times daily Orders: baclofen (LIORESAL) 10 mg tablet; Take 1 tablet (10 mg total) by mouth 3 (three) times a day. Subclinical hyperthyroidism 07/27/2024 Assessment & Plan (07/27/2024 6:05 PM EST): TSH in Dec was 0.3 with normal free T3/T4 consistent with subclinical hypothyroidism. Repeat TSH done today has returned normal. Will remove endocrinology referral Orders: Thyroid stimulating hormone with reflex to free t4 and free t3; Future Thyroid peroxidase antibody; Future Thyroglobulin and thyroglobulin antibody panel; Future Primary osteoarthritis of right hip 07/27/2024 Assessment & Plan (11/22/2024 1:27 PM EDT): Requesting lidocaine patches which she previously used when she was in rehab a few months ago. This is sent to her pharmacy Orders: lidocaine (Lidoderm) 5 % patch; Apply 1 patch topically 1 (one) time each day. Remove & discard patch within 12 hours or as directed by MD. Abnormal stress test 05/01/2024 Assessment & Plan [...] low back pain without sciatica 0 12/26/2023 Assessment & Plan (11/22/2024 1:27 PM EDT): As above Orders: lidocaine (Lidoderm) 5 % patch; Apply 1 patch topically 1 (one) time each day. Remove & discard patch within 12 hours or as directed by . ILD (interstitial lung disease) (CMS/HCC V24, CM S/HCC V28) 08/04/2023 Overview (05/01/2024): Last Assessment & Plan: [...] incisional pain. Directed to follow-up with her medical laboratory technician Dr. Hernandez in regards to her pulmonary fibrosis. Will follow-up with the thoracic surgical department moving forward on a as needed basis and to contact the thoracic surgery department should she have any further questions or concerns in the future. Hyperlipidemia 06/27/2023 Assessment & Plan (11/22/2024 1:27 PM EDT): Will trial a lower dose of statin--> Crestor 10 mg instead of the atorvastatin 40 mg she was previously on(which she has not used in months-see HPI) Will update labs Orders: rosuvastatin (CRESTOR) 10 mg tablet; Take 1 tablet (10 mg total) by mouth 1 (one) time each day. Lipid panel with reflex to direct LDL; Future Comprehensive metabolic panel; Future Insomnia 06/24/2023 Overweight (BMI 25.0-29.9) 06/24/2023 Anxiety and depression 02/17/2023 Osteopenia 02/17/2023 Assessment & Plan (11/22/2024 1:27 PM EDT): She will schedule DEXA scan today before she leaves the building. She will ensure she is taking vitamin D 2000 units daily Orders: cholecalciferol (VITAMIN D-3) 50 mcg (2,000 unit) tablet; Take 1 tablet (2,000 Units total) by mouth 1 (one) time each day. Vitamin D 25 hydroxy; Future Assessment & Plan (10/18/2024 12:05 PM EDT): Will update vitamin D level and DEXA scan Orders: Vitamin D 25 hydroxy; Future BD Bone Density DXA Axial Skeleton; Future Resolved Problems Problem Noted Date Diagnosed Date Resolved Date Prediabetes 07/27/2024 11/22/2024 Assessment & Plan (10/18/2024 12:05 PM EDT): She does have a history of prediabetes, last A1c in June was 6.3. Will update A1c, given ongoing chronic prednisone use for both the suspected polymyalgia rheumatica and pulmonary fibrosis Orders: Hemoglobin A1c; Future Assessment & Plan (07/27/2024 6:05 PM EST): Last A1c was elevated to 6.3 Prednisone use may have been contributory Will monitor Lifestyle counselling provided CAD (coronary artery disease) 05/01/2024 05/28/2024 Encounters Date Type Department Care Team Description 11/23/2024 11:00 AM EDT [facility] [address] [place] [address] Smita Acosta MD ILD (interstitial lung disease) ([facility] V24, [facility] V28) 11/22/2024 12:45 PM EDT Office Visit Adult Medicine [address] [phone] Lex Rich MD Type 2 diabetes mellitus with diabetic polyneuropathy, without long-term current use of insulin ([facility] V24, [facility] V28) (Primary Dx); Mixed hyperlipidemia; Need for vaccination against Streptococcus pneumoniae; Primary osteoarthritis of right hip; Chronic midline low back pain without sciatica; Osteopenia, unspecified location; Polymyalgia rheumatica ([facility] V24) 11/22/2024 Billing Patient Not Present Adult Medicine [address] [phone] Lex Rich MD 11/22/2024 Telephone Adult Medicine [address] [phone] Lex Rich MD faxed order ([facility] orders (tracking # [id number])) 11/22/2024 Telephone Adult Medicine [address] [phone] Xiao Cook LPN Fitting for DME 11/21/2024 Billing Patient Not Present Adult [address] [phone] Lex Rich MD 11/15/2024 Telephone Adult Medicine [address] [phone] Eleonora Watkins MA faxed order ([facility] tracking #[id number]) 11/15/[address] [phone] Aysha Hernandez MD Medication Problem 11/09/2024 Telephone Adult Medicine [address] [phone] Lex Rich MD faxed order ([facility] missed visit note 11/05/24) 10/23/2024 11:00 AM EDT [facility] [address] [phone] Aysha Hernandez MD ILD (interstitial lung disease) ([facility] V24, [facility] V28) (Primary Dx); Rheumatoid arthritis with positive rheumatoid factor, involving unspecified site ([facility] V24, [facility] V28); Tachycardia 10/18/2024 11:15 AM EDT - 10/18/2024 11:59 PM EDT Hospital Encounter [address] [phone] Foot pain, bilateral Discharge Disposition: Home or Self Care 10/18/2024 10:30 AM EDT Office Visit [address] [phone] Lex Rich MD Normocytic anemia (Primary Dx); Polymyalgia rheumatica ([facility] V24); Neuropathy; Foot pain, bilateral; 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; Prediabetes; Osteopenia, unspecified location 10/15/2024 Telephone Adult [address] [phone] Lex Rihc MD vna 10/12/[address] [phone] Lex Rich MD Hospital Follow-up 10/08/[address] [phone] Lex Rich MD Referral 10/07/2024 Lab Requisition [facility] [address] [place] [address] Mainor Crawford MD Polymyalgia rheumatica ([facility] V24) 10/04/2024 Telephone Adult [address] [phone] Xiao Cook LPN Fitting for DME (Faxed form from [facility]) 09/27/2024 Lab Requisition [facility] [address] [place] [phone] Mainor Crawford MD Polymyalgia rheumatica ([facility] V24) 09/20/2024 12:50 PM EST - 09/20/2024 11:59 PM EST Hospital Encounter [facility] CT Scan [address] [place] [phone] ILD (interstitial lung disease) ([facility] V24, [facility] V28) Discharge Disposition: Home or Self Care 09/19/2024 Billing Patient Not Present Adult Medicine [address] [phone] Emilia Wyman MA from Last 3 Months Immunizations Name Administration Dates Next Due Influenza Quadravalent, MDCK , 0.5ml, preservative free (Flucelvax) 6mo and older 04/19/2023 Pneumococcal conjugate 20 va lent (Prevnar 20, PCV 20) 2mo and older 11/22/2024 Tdap Tetanus diptheria acell ular pertussis (Boostrix; Adacel) 7yo and older 04/19/2023 Surgical History Surgery Date Site/Laterality Comments VIRTUAL COLONSCOPY (DIAG.) 10/18/2023 repeat in 10 years HYSTERECTOMY NECK SURGERY ANKLE SURGERY CARDIAC CATHETERIZATION DONE ON 04/24/2024 [place] [facility] [place]ICATIONS CHEST PAIN Medical History Medical History Date Comments Depression Prediabetes 07/27/2024 Family History Relation Name Status Comments Father [...] Record ed Within the last 3 months, monserrat medina many times did you visit the emergency [...] care for your loved ones. For example, care tech or elderly care for an older adult? [...] Sign Reading Time Taken Comments Blood Pressure 100/60 11/22/2024 12:54 PM EDT Pulse 88 11/22/2024 12:54 PM EDT Temperature 36.9 ??C (98.4 ??F) 11/22/2024 12:54 PM E DT Respiratory Rate 14 11/22/2024 12:54 PM EDT Oxygen Saturation 96% 10/23/2024 11:08 AM EDT Inhaled Oxygen Concentration - - Weight 59.9 kg (132 lb) 11/22/2024 12:54 PM EDT Height 152.4 cm (5') 11/22/2024 12:54 PM EDT Body Mass Index 25.78 11/22/2024 12:54 PM EDT Plan of Treatment Upcoming Encounters Date Type Department Care Team (Late st Contact Info) Description 12/31/2024 1:45 PM EDT Appointment [facility] Neurodiagnostic [address] [place] [phone] 01/01/2025 10:30 AM EDT Office Visit Pulmonolgy [facility] [address] [phone] Aysha Hernandez MD [address] [phone] 01/02/2025 10:15 AM EDT Consult Orthopedic Surgery - [place] [address] [phone] Diony Toledo DPM [address] [phone] 01/07/2025 1:45 PM EDT Appointment [facility] Neurodiagnostic [address] [place] [phone] 02/22/2025 9:45 AM EDT Office Visit Adult Medicine [facility] - [address] [phone] Lex Rich MD [address] [place] [phone] 03/13/2025 11:10 AM EDT Appointment Radiology Department - [address] [place] [phone] 05/10/2025 10:45 AM EDT Appointment Bone Density - [place] [phone] Health Maintenance Due Date Last Done Comments Diabetes: Annual Foot Exam 1976 Diabetes: Annual Retina Eye Exam 1976 Zoster Vaccines (1 of 2) 2016 HIV Screening 08/18/2023 Medicare Annual Wellness Visit 08/18/2023 COVID-19 Vaccine ( season) 2024 Colorectal Cancer Screening: Stool Based Tests (FOBT/FIT) 10/17/2024 10/18/2023 Diabetes: Annual Urine Albumin-Creatinine Ratio (uACR) 10/18/2024 Diabetes: Blood Sugar Control Test (HGBA1C) 04/20/2025 10/18/2024, 07/12/2024, 01/04/2024, Additional history exists Diabetes: Annual GFR (Glomerular Filtration Rate) 09/27/2025 09/27/2024, 07/12/2024, 05/27/2024, Additional history exists Hypertension/CHF/CAD Annual BMP Blood Test 09/27/2025 09/27/2024, 07/12/2024, 05/27/2024, Additional history exists Depression Screening 10/18/2025 10/18/2024 Social Influencers of Health Screening 10/18/2025 10/18/2024 Breast Cancer Screening 03/05/2026 03/05/20 24, 03/05/2024, 03/02/2023 Cholesterol Screening (Lipid Panel) 01/03/2029 01/04/2024, 01/04/2024 DTaP,Tdap,and Td Vaccines (2 - Td or Tdap) 04/19/2033 04/19/2023 Influenza Vaccine Discontinued 04/19/2023 Colorectal Cancer Screening: Colonoscopy Discontinued 09/21/2023 Hepatitis C Screening Completed 07/12/2024, 023 Pneumococcal Vaccine: 50+ Years Completed 11/22/2024 Pneumococcal Vaccine: Pediatrics (0 to 5 Years) and At-Risk Patients (6 to 64 Years) Completed 11/22/2024 Cervical Cancer Screening: Pap Smear Discontinued HIB Vaccines Aged Out No longer eligi ble based on patient's age to complete this topic HPV Vaccines Aged Out No longer eligi ble based on patient's age to complete this topic Hepatitis A Vaccines Aged Out No long er eligible based on patient's age to complete this topic Hepatitis B Vaccines Discontinued IPV Vaccines Aged Out No longer eligi ble based on patient's age to complete this topic MMR Vaccines Aged Out No longer eligi ble based on patient's age to complete this topic Meningococcal ACWY Vaccine Aged Out N o longer eligible based on patient's age to complete this topic Meningococcal B Vaccine Aged Out No l onger eligible based on patient's age to complete this topic RSV Immunization Patients Under 20 months Aged Out No longer eligible based on patient's age to complete this topic Varicella Vaccines Aged Out No longer eligible based on patient's age to complete this topic Procedures Procedure Name Priority Date/Time Associated Diagnosis Comments PULMONARY FUNCTION TESTING Routine 11/23/2024 11:29 AM EDT ILD (interstitial lung disease) ([facility] V24, [facility] V28) POC GLUCOSE Routine 11/22/2024 1:45 PM EDT Type 2 diabetes mellitus with diabetic polyneuropathy, without long-term current use of insulin ([facility] V24, [facility] V28) HOME HEALTH ORDER 10/22/2024 CBC WITH AUTO DIFFERENTIAL Routine 10/18/2024 11:47 AM EDT Normocytic anemia VITAMIN B12 Routine 10/18/2024 11:47 AM EDT Normocytic anemia CBC AND DIFFERENTIAL Routine 10/18/2024 11:47 AM EDT Normocytic anemia FOLATE Routine 10/18/2024 11:47 AM EDT Normocytic anemia FERRITIN Routine 10/18/2024 11:47 AM EDT Normocytic anemia IRON AND TIBC Routine 10/18/2024 11:47 AM EDT Normocytic anemia HEMOGLOBIN A1C Routine 10/18/2024 11:47 AM EDT 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 Prediabetes XR FOOT 3+ VIEWS BILAT Routine 11:39 AM EDT Foot pain, bilateral PREALBUMIN Routine 10/08/2024 5:24 AM EDT Polymyalgia rheumatica (CMS/HCC) COMPREHENSIVE METABOLIC PANEL Routine 09/27/2024 4:53 AM EST Polymyalgia rheumatica (CMS/HCC) COMPLETE BLOOD COUNT Routine 09/27/2024 4:53 AM EST Polymyalgia rheumatica (CMS/HCC) CT CHEST WO CONTRAST Routine 09/20/2024 1:11 PM EST ILD (interstitial lung disease) (CMS/HCC V24, CMS/HCC V28) HEPATITIS C ANTIBODY Routine 07/12/2024 10:05 AM EST Encounter for hepatitis C screening test for low risk patient SCREENING MAMMOGRAPHY BI 2-VIEW BREAST INC CAD Routine 03/05/2024 1:29 PM EDT Encounter for other screening for malignant neoplasm of breast LIPID PANEL Routine 01/04/2024 HM COLONOSCOPY Routine 09/21/2023 from Last 3 Months or Most Recently Relevant to Health Maintenance Results * Pulmonary function testing: Spirometry with [...] Aysha Hernandez MD PFT ORDERABLES Final Result * (ABNORMAL) POC glucose manually resulted (11/22/2024 1:45 PM EDT) [facility] Glucose POC 152(A) 70 - 100 mg/dL Blood Capillary blood specimen / Unknown 11/22/2024 1:45 PM EDT Lex Rich MD POINT OF CARE TEST ENTER/EDIT ORDERABLES Final Result * Home Health Order (10/22/2024) Provider [facility] NURSING ASSESS[facility] Hodan l Result * (ABNORMAL) CBC auto differential (10/18/2024 11:47 AM EDT) [facility] WBC 10.6 4.8 - 10.8 K/mcL LAB HEMETOLOGY METHOD 10/18/2024 2:[address] [facility] RBC 4.20 3.80 - 4.80 M/mcL LAB HEMETOLOGY METHOD 10/18/2024 2:[address] [facility] Hemoglobin 11.9 11.5 - 16.0 g/dL LAB HEMETOLOGY METHOD 10/18/2024 2:[address] [facility] Hematocrit 39.5 35.0 - 47.0 % LAB HEMETOLOGY METHOD 10/18/2024 2:[address] [facility] MCV 94.3 79.0 - 98.0 FL LAB HEMETOLOGY METHOD 10/18/2024 2:[address] [facility] MCH 28.4 27.0 - 32.0 pcg LAB HEMETOLOGY METHOD 10[facility]24 [facility] MCHC 30.1(L) 32.0 - 37.0 g/dL LAB HEMETOLOGY METHOD 10/18/2024 2:[address] [facility] RDW 18.3(H) 11.0 - 15.0 % LAB HEMETOLOGY METHOD 10/18/2024 2:04 PM [facility] Platelets 515(H) 130 - 400 K/mcL LAB HEMETOLOGY METHOD 10/18/2024 2:04 PM [facility] MPV 9.3 7.0 - 11.0 FL LAB HEMETOLOGY METHOD 10/18/2024 2:04 PM [facility] NRBC 0.0 <1.0 % LAB HEMETOLOGY METHOD 10/18/2024 2:04 PM [facility] NRBC Absolute 0.00 <0.10 K/mcL LAB HEMETOLOGY METHOD 10/18/2024 2:04 PM [facility] Neutrophils Relative 64.8 % LAB HEMETOLOGY METHOD 10/18/2024 2:04 PM [facility] Lymphocytes Relative 23.1 % LAB HEMETOLOGY METHOD 10/18/2024 2:04 PM [facility] Monocytes Relative 8.7 % LAB HEMETOLOGY METHOD 10/18/2024 2:04 PM [facility] Eosinophils Relative 1.0 % LAB HEMETOLOGY METHOD 10/18/2024 2:04 PM [facility] Basophils Relative 0.9 % LAB HEMETOLOGY METHOD 10/18/2024 2:04 PM [facility] Immature Granulocytes Relative 1.5 % LAB HEMETOLOGY METHOD 10/18/2024 2:04 PM [facility] Neutrophils Absolute 6.85 1.50 - 7.00 K/mcL LAB HEMETOLOGY METHOD 10/18/2024 2:04 PM [facility] Lymphocytes Absolute 2.45 1.00 - 5.00 K/mcL LAB HEMETOLOGY METHOD 10/18/2024 2:[address] [facility] Monocytes Absolute 0.92 0.20 - 1.00 K/mcL LAB HEMETOLOGY METHOD 10/18/2024 2:[address] [facility] Eosinophils Absolute 0.11 0.00 - 0.50 K/[facility] LAB HEMETOLOGY METHOD 10/18/2024 2:[address] [facility] Basophils Absolute 0.10 0.00 - 0.20 K/[facility] LAB HEMETOLOGY METHOD 10/18/2024 2:[address] [facility] Immature Granulocytes Absolute 0.16(H) 0.00 - 0.03 K/[facility] LAB HEMETOLOGY METHOD 10/18/2024 2:[address] [facility] Blood Venous blood specimen / Unknown Venipuncture / Unknown 10/18/2024 11:47 AM EDT 10/18/2024 11:47 AM EDT Lex Rich MD LAB BLOOD ORDERA BLES Final Result [facility] [address] [place] [address], * (ABNORMAL) Iron and TIBC (10/18/2024 11:47 AM EDT) Iron 20(L) 40 - 150 mcg/dL LAB CHEMISTRY METHOD 10/18/2024 3:[address] [facility] TIBC 323 250 - 450 mcg/dL LAB CHEMISTRY METHOD 10/18/2024 3:[address] [facility] Iron Saturation 6(L) 15 - 50 % LAB CHEMISTRY METHOD 10/18/2024 3:[address] [facility] Blood Venous blood specimen / Unknown Venipuncture / Unknown 10/18/2024 11:47 AM EDT 10/18/2024 11:47 AM EDT Lex Rich MD LAB BLOOD ORDERA BLES Final Result Performing Organization Address City/[facility]/ZIP Co de Phone Number [facility] [address] [place] [address], [place] [phone] * (ABNORMAL) Hemoglobin A1c (10/18/2024 11:47 AM EDT) Hemoglobin A1C 6.7(H) <6.5 % LAB CHEMISTRY METHOD 10/18/2024 9:[address] [facility] Mean Bld Glu Estim. 146 mg/dL LAB CHEMISTRY METHOD 10/18/2024 9:[address] [facility] Blood Venous blood specimen / Unknown Venipuncture / Unknown 10/18/2024 11:47 AM EDT 10/18/2024 11:47 AM EDT Lex Rich MD LAB BLOOD ORDERA BLES Final Result Performing Organization Address [facility]/ZIP Co de Phone Number [facility] [address] [place] [address], [place] [phone] * Folate (10/18/2024 11:47 AM EDT) Pathologist [facility] Folate 9.5 2.8 - 17.0 ng/ml LAB CHEMISTRY METHOD 10/18/2024 3:[address] [facility] Blood Venous blood specimen / Unknown Venipuncture / Unknown 10/18/2024 11:47 AM EDT 10/18/2024 11:47 AM EDT Lex Rich MD LAB BLOOD ORDERA BLES Final Result [facility] [facility] [address] [place] [address], [place] [phone] * (ABNORMAL) Ferritin (10/18/2024 11:47 AM EDT) [facility] Ferritin 317(H) 8 - 252 ng/mL LAB CHEMISTRY METHOD 10/18/2024 3:[address] [facility] [facility] Blood Venous blood specimen / Unknown Venipuncture / Unknown 10/18/2024 11:47 AM EDT 10/18/2024 11:47 AM EDT Lex Rich MD LAB BLOOD ORDERA BLES Final Result Performing Organization Address [facility]/ZIP Co de Phone Number [facility] [address] [place] [address], [place] [phone] * (ABNORMAL) Vitamin B12 (10/18/2024 11:47 AM EDT) [facility] Vitamin B-12 1,054(H) 250 - 900 pcg/mL LAB CHEMISTRY METHOD 10/18/2024 3:[address] [facility] Blood Venous blood specimen / Unknown Venipuncture / Unknown 10/18/2024 11:47 AM EDT 10/18/2024 11:47 AM EDT Lex Rich MD LAB BLOOD ORDERA BLES Final Result [facility] [address] [place] [address], [place] [phone] * XR Foot 3+ Views bilat (10/18/2024 11:39 AM EDT) Anatomical Region Laterality Modality Lower Extremities, Foot Bilateral Radiogra phic Imaging 10/19/2024 12:0 9 AM EDT Impressions 10/19/2024 12:14 AM EDT Bilateral calcaneal spurring. POS - [id number] -------- FINAL REPORT -------- Dictated By: Yanelis Santizo Dictated Date: 10/19/2024 00:09 ET Assigned Physician: Yanelis Santizo Reviewed and Electronically Signed By: Yanelis Santizo Signed Date: 10/19/2024 00:14 ET Workstation ID: [id number] Transcribed By: Self Edit Transcribed Date: 10/19/2024 00:09 ET Narrative 10/19/2024 12:14 AM EDT EXAM: Bilateral foot x-ray HISTORY: Bilateral foot pain. COMPARISON: None FINDINGS: 3 views of both feet were performed. No evidence of an acute fracture or malalignment. ??Joint spaces are maintained. ??No destructive or erosive bony changes. ??Bilateral posterior calcaneal spurs, small on the left and tiny on the right. Procedure Note Yanelis Santizo MD - 10/19/2024 EXAM: Bilateral foot x-ray HISTORY: Bilateral foot pain. COMPARISON: None FINDINGS: 3 views of both feet were performed. No evidence of an acute fracture or malalignment. Joint spaces aremaintained. No destructive or erosive bony changes. Bilateral posteriorcalcaneal spurs, small on the left and tiny on the right. IMPRESSION: Bilateral calcaneal spurring. POS - [id number] -------- FINAL REPORT -------- Dictated By: Yanelis Santizo Dictated Date: 10/19/2024 00:09 ET Assigned Physician: Yanelis Santioz Reviewed and Electronically Signed By: Yanelis Santizo Signed Date: 10/19/2024 00:14 ET Workstation ID: [id number] Transcribed By: Self Edit Transcribed Date: 10/19/2024 00:09 ET us Lex Rich MD IMG XR PROCEDURE S Final Result * Prealbumin (10/08/2024 5:24 AM EDT) Prealbumin 27 18 - 45 mg/dL LAB CHEMISTRY METHOD 10/08/2024 11:[address] [facility] Blood Venous blood specimen / Unknown Venipuncture / Unknown 10/08/2024 5:24 AM EDT 10/08/2024 10:33 AM EDT us Mainor Crawford MD LAB BLOOD ORDERABLES Final Resul t [facility] [address] [place] [address], * (ABNORMAL) Complete blood count (09/27/2024 4:53 AM EST) WBC 8.7 4.8 - 10.8 K/mcL LAB HEMETOLOGY METHOD 09/27/2024 9:33 AM [facility] RBC 3.60(L) 3.80 - 4.80 M/mcL LAB HEMETOLOGY METHOD 09/27/2024 9:33 AM [facility] Hemoglobin 10.5(L) 11.5 - 16.0 g/dL LAB HEMETOLOGY METHOD 09/27/2024 9:33 AM [facility] Hematocrit 33.3(L) 35.0 - 47.0 % LAB HEMETOLOGY METHOD 09/27/2024 9:33 AM [facility] MCV 92.2 79.0 - 98.0 FL LAB HEMETOLOGY METHOD 09/27/2024 9:33 AM [facility] MCH 29.1 27.0 - 32.0 pcg LAB HEMETOLOGY METHOD 09/27/2024 9:33 AM [facility] MCHC 31.5(L) 32.0 - 37.0 g/dL LAB HEMETOLOGY METHOD 09/27/2024 9:33 AM [facility] RDW 17.8(H) 11.0 - 15.0 % LAB HEMETOLOGY METHOD 09/27/2024 9:33 AM [facility] Platelets 397 130 - 400 K/mcL LAB HEMETOLOGY METHOD 09/27/2024 9:[address] [facility] MPV 9.2 7.0 - 11.0 FL LAB HEMETOLOGY METHOD 09/27/2024 9:[address] [facility] NRBC 0.0 <1.0 % LAB HEMETOLOGY METHOD 09/27/2024 9:[address] [facility] NRBC Absolute 0.00 <0.10 K/mcL LAB HEMETOLOGY METHOD 09/27/2024 9:[address] [facility] Blood Venous blood specimen / Unknown Venipuncture / Unknown 09/27/2024 4:53 AM EST 09/27/2024 8:45 AM EST us Mainor Crawford MD LAB BLOOD ORDERABLES Final Resul t [facility] [address] [place] [address], * (ABNORMAL) Comprehensive metabolic panel (09/27/2024 4:53 AM EST) Sodium 134 133 - 145 mmol/L LAB CHEMISTRY METHOD 09/27/2024 10:15 AM [facility] Potassium 3.8 3.5 - 5.5 mmol/L LAB CHEMISTRY METHOD 09/27/2024 10:15 AM [facility] Chloride 97 96 - 110 mmol/L LAB CHEMISTRY METHOD 09/27/2024 10:15 AM [facility] CO2 30 21 - 32 mmol/L LAB CHEMISTRY METHOD 09/27/2024 10:15 AM [facility] Anion Gap 7 3 - 11 LAB CHEMISTRY METHOD 09/27/2024 10:15 AM [facility] Glucose 108(H) 70 - 100 mg/dL LAB CHEMISTRY METHOD 09/27/2024 10:15 AM [facility] BUN 19 5 - 25 mg/dL LAB CHEMISTRY METHOD 09/27/2024 10:15 AM [facility] Creatinine 0.57 0.50 - 1.10 mg/dL LAB CHEMISTRY METHOD 09/27/2024 10:15 AM [facility] eGFR 106 >=60 mL/min/1. 73m2 LAB CHEMISTRY METHOD 09/27/2024 10:15 AM [facility] Comment:Calculation based on the??Chronic Kidney Disease Epidemiology Collaboration (CKD-EPI) equation refit??without adjustment for race. BUN/Creatinine Ratio 33.3 LAB CHEMISTRY METHOD 09/27/2024 10:15 AM [facility] Calcium 8.6 8.5 - 10.5 mg/dL LAB CHEMISTRY METHOD 09/27/2024 10:15 AM [facility] AST (SGOT) 35 10 - 42 unit/L LAB CHEMISTRY METHOD 09/27/2024 10:15 AM [facility] ALT (SGPT) 60 10 - 60 unit/L LAB CHEMISTRY METHOD 09/27/2024 10:15 AM [facility] Alkaline Phosphatase 100 42 - 121 unit/L LAB CHEMISTRY METHOD 09/27/2024 10:15 AM [facility] Total Protein 5.8(L) 6.0 - 8.0 g/dL LAB CHEMISTRY METHOD 09/27/2024 10:15 AM [facility] Albumin 2.3(L) 3.2 - 5.0 g/dL LAB CHEMISTRY METHOD 09/27/2024 10:15 AM [facility] Total Bilirubin 0.3 0.0 - 1.4 mg/dL LAB CHEMISTRY METHOD 09/27/2024 10:15 AM [facility] Blood Venous blood specimen / Unknown Venipuncture / Unknown 09/27/2024 4:53 AM EST 09/27/2024 8:45 AM EST Mainor Crawford MD LAB BLOOD ORDERABLES Final Resul t [facility] [address] [place] [address], [place] [phone] * CT Chest wo Contrast (09/20/2024 1:11 [...] Signed Date: 09/24/2024 15:52 ET Workstation ID: [id number] Transcribed By: Self Edit Transcribed Date: 09/24/2024 [...] Signed Date: 09/24/2024 15:52 ET Workstation ID: [id number] Transcribed By: Self Edit Transcribed Date: 09/24/2024 15:37 ET us Aysha Hernandez MD [facility] [place] PROCEDURES Final Result * Hepatitis C antibody (07/12/2024 10:05 AM EST) Hepatitis C Antibody Negative Negative LAB CHEMISTRY METHOD 07/12/2024 1:27 PM EST [facility] Blood Venous blood specimen / Unknown Venipuncture / Unknown 07/12/2024 10:05 AM EST 07/12/2024 10:05 AM EST Lex Rich MD LAB BLOOD ORDERA BLES Final Result [facility] [address] [facility] [address], [place] [phone] * SCREENING MAMMOGRAPHY BI 2-VIEW BREAST INC [...] Most Recently Relevant to Health Maintenance Insurance [facility] MEDIC[facility] Member Subscriber Plan / Payer (Ef fective 2022-Present) Name:Patricia Alexandre Relation to Subscriber:Self Name:Patricia Alexandre Payer ID:[id number] Group ID:[id number] Type:Not on file Address: [place] [address] [address] [id number] Care Teams Silk Soaker Relationship Specialty Start Date End Date Lex Rich MD [address] [place] [id number] PCP - General Internal Medicine 05/24/24
--- OUTSIDE RECORDS SUMMARY | 2024-11-28 13:01 | XMS_ITS | Encounter Summary ---
Author Organization [facility] Address [address] [place] [address] Care Team Providers Care Lead Massage Therapist Name Role Phone Lex Rich MD Primary Care Pr ovider Encounter Details Date Type Department Care Team (Late Contact Info) Description 10/07/2024 Lab Requisition [facility] [address] [facility] [place] [address] Mainor Crawford MD [address] [facility] [address] [place], [phone] Polymyalgia rheumatica ([facility]/HCC V24) Social History Tobacco Use Types Packs/Day [...] Info) Description 12/31/2024 1:45 PM EDT Appointment [facility] Neurodiagnostic [address] [place] [address] 01/01/2025 10:30 AM EDT [facility] [address] [place] [phone] Aysha Hernandez MD [address] [place] [address] 01/02/2025 10:15 AM EDT Consult Orthopedic Surgery - [place] [address] [place] [phone] Diony Toledo DPM [address] [facility] [address] [place] [address] 01/07/2025 1:45 PM EDT Appointment [facility] Neurodiagnostic [address] [place] [phone] 02/22/2025 9:45 AM EDT Office Visit [facility] - [address] [phone] Lex Rich MD [address] [place] [address] 03/13/2025 11:10 AM EDT Appointment Radiology Department - [address] [phone] 05/10/2025 10:45 AM EDT Appointment Bone Density - [address] [phone] documented as of this encounter Procedures Procedure Name Priority Date/Time Associated Diagnosis Comments PREALBUMIN Routine 10/08/2024 5:24 AM EDT Polymyalgia rheumatica (CMS/HCC) documented in this encounter Results * Prealbumin (10/08/2024 5:24 AM EDT) Prealbumin 27 18 - 45 mg/dL LAB CHEMISTRY METHOD 10/08/2024 11:51 AM EDT [facility] Blood Venous blood specimen / Unknown Venipuncture / Unknown 10/08/2024 5:24 AM EDT 10/08/2024 10:33 AM EDT us Mainor Crawford MD LAB BLOOD ORDERABLES Final Resul t [facility] [address] [place] [address], documented in this encounter Visit Diagnoses Diagnosis Polymyalgia rheumatica (CMS/HCC V24) Polymyalgia rheumatica Encounter for screening mammogram for breast cancer documented in this encounter Care Teams Lead Massage Therapist Relationship Specialty Start Date End Date Lex Rich MD [address] [place] [phone] PCP - General Internal Medicine 05/24/24 documented as of this encounter
== END 2024-11-28 12:11 | disposition home or self-care (01) ==
LOC: HO.PMC 11:34
PROVIDERS: PCP Family Medicine; Visit Provider Registered Nurse Emergency
DX: M53.3 Sacrococcygeal disorders, not elsewhere classified (principal); M79.10 Myalgia, unspecified site; M35.3 Polymyalgia rheumatica; M47.816 Spondylosis without myelopathy or radiculopathy, lumbar region; G89.4 Chronic pain syndrome
CPT/HCPCS: 99204; G2211

== ENCOUNTER → 2024-11-28 11:33 | Outpatient (BNVA) | payer OTHER, SELFPAY | PROVIDERS: PCP Family Medicine; Visit Provider Registered Nurse Emergency | DX: M53.3 Sacrococcygeal disorders, not elsewhere classified (principal); M79.10 Myalgia, unspecified site; M35.3 Polymyalgia rheumatica; M47.816 Spondylosis without myelopathy or radiculopathy, lumbar region; G89.4 Chronic pain syndrome | CPT/HCPCS: 99202 ==

== ENCOUNTER 2024-12-03 11:31 | Outpatient (REF) | payer OTHER, SELFPAY ==
--- NOTE | ~2024-12-03 | XR_ITS ---
EXAMINATION: XR SACROILIAC JOINTS CLINICAL INFORMATION: M53.3 - Sacrococcygeal disorders, not elsewhere classified COMPARISON: September 23, 2024 pelvis x-ray. TECHNIQUE: 3 views of the sacroiliac joints FINDINGS: No acute cortical disruption. No lytic or blastic lesions. Mild to moderate degenerative changes in the right hip. Mild degenerative changes in the left hip.. XR/XR sacroiliac joint min 3V IMPRESSION: No sacroiliitis. No acute fracture. Electronically signed by: Shawn Noyola MD 12/03/2024 01:58 PM EDT
--- NOTE | ~2024-12-03 | XR_ITS ---
EXAMINATION: X-ray lumbar spine. CLINICAL INFORMATION: Spondylosis without myelopathy or radiculopathy, lumbar region. TECHNIQUE: AP oblique and lateral views. COMPARISON: None FINDINGS: Endplate sclerosis and decreased intervertebral disc height at L5-S1. Mild multilevel endplate sclerosis and decreased intervertebral disc height lower thoracic spine. No acute cortical disruption. No gross malalignment. XR/XR lumbar spine 4V min IMPRESSION: Mild multilevel thoracolumbar spondylosis. Electronically signed by: Shawn Noyola MD 12/03/2024 01:57 PM EDT
--- OUTSIDE RECORDS SUMMARY | 2024-12-03 12:21 | XMS_ITS | Encounter Summary ---
Author Organization [facility] Address [address] [facility] [address] [place] [address] Care Team Providers Care Warehouse Consultant Name Role Phone Unavailable Primary Care Provider Unavailabl e Reason for Visit * Reason Onset Date Comments New Patient 04/12/2023 Encounter Details Date Type Department Care Team (Late st Contact Info) Description 04/12/2023 Telephone [facility] [address] [place] [address] Oumar Chen MD [address] [place] [address] New Patient Social History Tobacco Use Types Packs/Day Years Used Date Smoking Tobacco: Never Assessed Comments Unknown Sex and Gender Information Value Date Recorded Sex Assigned at Not on file Legal Sex Female 2:37 PM EST Gender Identity Female 06/24/2022 2:41 PM EST Sexual Orientation Not on file documented as of this encounter Miscellaneous Notes * Telephone Encounter - Dbera Day - 04/12/2023 12:53 PM EDT Tc to pt, to offer Stained Glass Glazier appt, No answer answer, could not leave voicemail due to not being set up . documented in this encounter Plan of Treatment Not on file documented as of this encounter Visit Diagnoses Not on filedocumented in this encounter
--- OUTSIDE RECORDS SUMMARY | 2024-12-03 12:21 | XMS_ITS | Clinical Summary ---
Author Organization [facility] [employer] Address [address] [place], [place] [address] Phone Care Team Providers Care Underwater Hunter Name Role Phone Lex Rich MD Primary [...] baclofen (LIORESAL) 10 mg tabletIndications: Polymyalgia rheumatica ([facility] V24) Take 1 tablet (10 mg total) by mouth 3 (three) times a day. 270 each 10/19/19 25 025 Active gabapentin (NEURONTIN) 300 mg capsuleIndications :Type 2 diabetes mellitus with diabetic polyneuropathy, without long-term current use of insulin ([facility] V24, [facility] V28) Take 1 capsule (300 mg total) [...] complication, without long-term current use of insulin ([facility] V24, [facility] V28) 10/21/2024 Assessment & Plan (11/22/2024 1:27 [...] Future Bilateral calcaneal spurs 10/19/2024 Polymyalgia rheumatica ([facility] V24) 10/18/2024 Assessment & Plan (11/22/2024 1:27 [...] incisional pain. Directed to follow-up with her special delivery mail carrier Dr. Hernandez in regards to her pulmonary [...] Description 11/23/2024 11:00 AM EDT [facility] [address] [facility] [address] [place] [address] Smita Acosta MD ILD (interstitial lung disease) ([facility] V24, [facility] V28) 11/22/2024 12:45 PM EDT Office Visit Adult Medicine [address] [phone] Lex Rich MD Type 2 diabetes mellitus with diabetic polyneuropathy, without long-term current use of insulin ([facility] V24, [facility] V28) (Primary Dx); Mixed hyperlipidemia; Need for vaccination against Streptococcus pneumoniae; Primary osteoarthritis of right hip; Chronic midline low back pain without sciatica; Osteopenia, unspecified location; Polymyalgia rheumatica ([facility] V24) 11/22/2024 Billing Patient Not Present Adult Medicine [address] [phone] Lex Rich MD 11/22/2024 Telephone Adult Medicine [address] [phone] Lex Rich MD faxed order ([facility] orders (tracking # [id number])) 11/22/2024 Telephone Adult Medicine [address] [phone] Xiao Cook LPN Fitting for DME 11/21/2024 Billing Patient Not Present Adult [address] [phone] Lex Rich MD 11/15/2024 Telephone Adult Medicine [address] [phone] Eleonora Watkins [place] faxed order ([facility] tracking #[id number]) 11/15/[address] [phone] Aysha Hernandez MD Medication Problem 11/09/2024 Telephone Adult Medicine [address] [phone] Lex Rich MD faxed order ([facility] missed visit note 11/05/24) 10/23/2024 11:00 AM EDT [facility] [address] [phone] Aysha Hernandez MD ILD (interstitial lung disease) ([facility] V24, [facility] V28) (Primary Dx); Rheumatoid arthritis with positive rheumatoid factor, involving unspecified site ([facility] V24, [facility] V28); Tachycardia 10/18/2024 11:15 AM EDT - 10/18/2024 11:59 PM EDT Hospital Encounter [address] [phone] Foot pain, bilateral Discharge Disposition: Home or Self Care 10/18/2024 10:30 AM EDT Office Visit [address] [phone] Lex Rich MD Normocytic anemia (Primary Dx); Polymyalgia rheumatica ([facility] V24); Neuropathy; Foot pain, bilateral; 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; Prediabetes; Osteopenia, unspecified location 10/15/2024 Telephone Adult [address] [phone] Lex Rich MD vna 10/12/[address] [phone] Lex Rich MD Hospital Follow-up 10/08/[address] [phone] Lex Rich MD Referral 10/07/2024 Lab Requisition [facility] [address] [facility] [place] [address] Mainor Crawford MD Polymyalgia rheumatica ([facility] V24) 10/04/2024 Telephone Adult [address] [phone] Xiao Cook LPN Fitting for DME (Faxed form from [employer]) 09/27/2024 Lab Requisition [facility] [address] [facility] [place] [address] Mainor Crawford MD Polymyalgia rheumatica ([facility] V24) 09/20/2024 12:50 PM EST - 09/20/2024 11:59 PM EST Hospital Encounter [facility] CT Scan [address] [place] [phone] ILD (interstitial lung disease) ([facility] V24, [facility] V28) Discharge Disposition: Home or Self Care 09/19/2024 Billing Patient Not Present Adult Medicine [address] [phone] Emilia Wyman MA from Last 3 Months [...] SURGERY CARDIAC CATHETERIZATION DONE ON 04/24/2024 AT [facility] W INDICATIONS CHEST PAIN Medical History Medical [...] care for your loved ones. For example, director child development center or elderly care for an older adult? [...] PM EDT Appointment [facility] Neurodiagnostic [address] [place] [phone] 01/01/2025 10:30 AM EDT Office Visit [facility] [address] [phone] Aysha Hernandez MD [address] [address] 01/02/2025 10:15 AM EDT Consult Orthopedic Surgery - [place] [address] [phone] Diony Toledo DPM [address] [address] 01/07/2025 1:45 PM EDT Appointment [facility] Neurodiagnostic [address] [place] [phone] 02/22/2025 9:45 AM EDT Office Visit Adult Medicine [facility] - [address] [phone] Lex Rich MD [address] [place] [address] 03/13/2025 11:10 AM EDT Appointment Radiology Department - [address] [place] [address] 05/10/2025 10:45 AM EDT Appointment Bone [place] [phone] Health Maintenance Due Date Last Done Comments [...] 11:29 AM EDT ILD (interstitial lung disease) ([facility] V24, [facility] V28) POC GLUCOSE Routine 11/22/2024 1:45 PM EDT Type 2 diabetes mellitus with diabetic polyneuropathy, without long-term current use of insulin ([facility] V24, [facility] V28) HOME HEALTH ORDER 10/22/2024 CBC WITH [...] HEMOGLOBIN A1C Routine 10/18/2024 11:47 AM EDT assisted systemic 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 Prediabetes XR FOOT 3+ [...] PM EDT) [facility] Glucose POC 152(A) 70 - 100 mg/dL Blood Capillary blood specimen / Unknown 11/22/2024 1:45 PM EDT Lex Rich MD POINT OF CARE TEST ENTER/EDIT ORDERABLES Final Result * Home Health Order (10/22/2024) Provider [facility]ESS[facility] Hodan l Result * (ABNORMAL) CBC auto differential (10/18/2024 11:47 AM EDT) [facility] WBC 10.6 4.8 - 10.8 K/mcL LAB HEMETOLOGY METHOD 10/18/2024 2:04 PM EDT [facility] RBC 4.20 3.80 - 4.80 M/mcL LAB HEMETOLOGY METHOD 10/18/2024 2:04 PM EDT [facility] Hemoglobin 11.9 11.5 - 16.0 g/dL LAB HEMETOLOGY METHOD 10/18/2024 2:04 PM EDT [facility] Hematocrit 39.5 35.0 - 47.0 % LAB HEMETOLOGY METHOD 10/18/2024 2:04 PM EDT [facility] MCV 94.3 79.0 - 98.0 FL LAB HEMETOLOGY METHOD 10/18/2024 2:04 PM EDT [facility] MCH 28.4 27.0 - 32.0 pcg LAB HEMETOLOGY [facility]24 [facility] MCHC 30.1(L) 32.0 - 37.0 g/dL LAB HEMETOLOGY METHOD 10/18/2024 2:04 PM EDT [facility] RDW 18.3(H) 11.0 - 15.0 % LAB HEMETOLOGY METHOD 10/18/2024 2:04 PM [facility] Platelets 515(H) 130 - 400 K/mcL LAB HEMETOLOGY METHOD 10/18/2024 2:04 PM [facility] MPV 9.3 7.0 - 11.0 FL LAB HEMETOLOGY METHOD 10/18/2024 2:04 PM [facility] NRBC 0.0 <1.0 % LAB HEMETOLOGY METHOD 10/18/2024 2:04 PM [facility] NRBC Absolute 0.00 <0.10 K/mcL LAB HEMETOLOGY METHOD 10/18/2024 2:04 PM [facility] Neutrophils Relative 64.8 % LAB HEMETOLOGY METHOD 10/18/2024 2:04 PM [facility] Lymphocytes Relative 23.1 % LAB HEMETOLOGY METHOD 10/18/2024 2:04 PM [facility] Monocytes Relative 8.7 % LAB HEMETOLOGY METHOD 10/18/2024 2:04 PM [facility] Eosinophils Relative 1.0 % LAB HEMETOLOGY METHOD 10/18/2024 2:04 PM [facility] Basophils Relative 0.9 % LAB HEMETOLOGY METHOD 10/18/2024 2:04 PM [facility] Immature Granulocytes Relative 1.5 % LAB HEMETOLOGY METHOD 10/18/2024 2:04 PM [facility] Neutrophils Absolute 6.85 1.50 - 7.00 K/mcL LAB HEMETOLOGY METHOD 10/18/2024 2:04 PM [facility] Lymphocytes Absolute 2.45 1.00 - 5.00 K/mcL LAB HEMETOLOGY METHOD 10/18/2024 2:04 PM EDT [facility] Monocytes Absolute 0.92 0.20 - 1.00 K/mcL LAB HEMETOLOGY METHOD 10/18/2024 2:04 PM EDT [facility] Eosinophils Absolute 0.11 0.00 - 0.50 K/[facility] LAB HEMETOLOGY METHOD 10/18/2024 2:04 PM EDT [facility] Basophils Absolute 0.10 0.00 - 0.20 K/[facility] LAB HEMETOLOGY METHOD 10/18/2024 2:04 PM EDT [facility] Immature Granulocytes Absolute 0.16(H) 0.00 - 0.03 K/[facility] LAB HEMETOLOGY METHOD 10/18/2024 2:04 PM EDT [facility] Blood Venous blood specimen / Unknown Venipuncture / Unknown 10/18/2024 11:47 AM EDT 10/18/2024 11:47 AM EDT Lex Rich MD LAB BLOOD ORDERA BLES Final Result [facility] [address] [place] [address], * (ABNORMAL) Iron and TIBC (10/18/2024 11:47 AM EDT) Iron 20(L) 40 - 150 mcg/dL LAB CHEMISTRY METHOD 10/18/2024 3:40 PM EDT [facility] TIBC 323 250 - 450 mcg/dL LAB CHEMISTRY METHOD 10/18/2024 3:40 PM EDT [facility] Iron Saturation 6(L) 15 - 50 % LAB CHEMISTRY METHOD 10/18/2024 3:40 PM EDT [facility] Blood Venous blood specimen / Unknown Venipuncture / Unknown 10/18/2024 11:47 AM EDT 10/18/2024 11:47 AM EDT Lex Rich MD LAB BLOOD ORDERA BLES Final Result Performing Organization Address City/[facility]/ZIP Co de Phone Number [facility] [address] [place] [address], [place] [phone] * (ABNORMAL) Hemoglobin A1c (10/18/2024 11:47 AM EDT) Hemoglobin A1C 6.7(H) <6.5 % LAB CHEMISTRY METHOD 10/18/2024 9:21 PM EDT [facility] Mean Bld Glu Estim. 146 mg/dL LAB CHEMISTRY METHOD 10/18/2024 9:21 PM EDT [facility] Blood Venous blood specimen / Unknown Venipuncture / Unknown 10/18/2024 11:47 AM EDT 10/18/2024 11:47 AM EDT Lex Rich MD LAB BLOOD ORDERA BLES Final Result Performing Organization Address [facility]/ZIP Co de Phone Number [facility] [address] [place] [address], [place] [phone] * Folate (10/18/2024 11:47 AM EDT) Pathologist [facility] Folate 9.5 2.8 - 17.0 ng/ml LAB CHEMISTRY METHOD 10/18/2024 3:40 PM EDT [facility] Blood Venous blood specimen / Unknown Venipuncture / Unknown 10/18/2024 11:47 AM EDT 10/18/2024 11:47 AM EDT Lex Rich MD LAB BLOOD ORDERA BLES Final Result [facility] [address] [place] [address], [place] [phone] * (ABNORMAL) Ferritin (10/18/2024 11:47 AM EDT) [facility] Ferritin 317(H) 8 - 252 ng/mL LAB CHEMISTRY METHOD 10/18/2024 3:40 PM EDT [facility] Blood Venous blood specimen / Unknown Venipuncture / Unknown 10/18/2024 11:47 AM EDT 10/18/2024 11:47 AM EDT Lex Rich MD LAB BLOOD ORDERA BLES Final Result Performing Organization Address [facility]/ZIP Co de Phone Number [facility] [address] [place] [address], [place] [phone] * (ABNORMAL) Vitamin B12 (10/18/2024 11:47 AM EDT) [facility] Vitamin B-12 1,054(H) 250 - 900 pcg/mL LAB CHEMISTRY METHOD 10/18/2024 3:40 PM EDT [facility] Blood Venous blood specimen / Unknown Venipuncture / Unknown 10/18/2024 11:47 AM EDT 10/18/2024 11:47 AM EDT Lex Rich MD LAB BLOOD ORDERA BLES Final Result [facility] [address] [place] [address], [place] [phone] * XR Foot 3+ Views bilat (10/18/2024 11:39 AM EDT) Anatomical Region Laterality Modality Lower Extremities, Foot Bilateral Radiogra phic Imaging 10/19/2024 12:0 9 AM EDT Impressions 10/19/2024 12:14 AM EDT Bilateral calcaneal spurring. POS - [id number] -------- FINAL REPORT -------- Dictated By: Yanelis Santizo Dictated Date: 10/19/2024 00:09 ET Assigned Physician: Yanelis Santizo Reviewed and Electronically Signed By: Yanelis Santizo Signed Date: 10/19/2024 00:14 ET Workstation ID: [id number] Transcribed By: Self Edit Transcribed Date: 10/19/2024 [...] right. IMPRESSION: Bilateral calcaneal spurring. POS - [id number] -------- FINAL REPORT -------- Dictated By: Yanelis Santizo Dictated Date: 10/19/2024 00:09 ET Assigned Physician: Yanelis Santizo Reviewed and Electronically Signed By: Yanelis Santizo Signed Date: 10/19/2024 00:14 ET Workstation ID: [id number] Transcribed By: Self Edit Transcribed Date: 10/19/2024 00:09 ET us Lex Rich MD IMG XR PROCEDURE S Final Result * Prealbumin (10/08/2024 5:24 AM EDT) Prealbumin 27 18 - 45 mg/dL LAB CHEMISTRY METHOD 10/08/2024 11:51 AM EDT [facility] Blood Venous blood specimen / Unknown Venipuncture / Unknown 10/08/2024 5:24 AM EDT 10/08/2024 10:33 AM EDT us Mainor Crawford MD LAB BLOOD ORDERABLES Final Resul t [facility] [address] [place] [address], * (ABNORMAL) Complete blood count (09/27/2024 4:53 AM EST) WBC 8.7 4.8 - 10.8 K/mcL LAB HEMETOLOGY METHOD 09/27/2024 9:33 AM [facility] RBC 3.60(L) 3.80 - 4.80 M/mcL LAB HEMETOLOGY METHOD 09/27/2024 9:33 AM [facility] Hemoglobin 10.5(L) 11.5 - 16.0 g/dL LAB HEMETOLOGY METHOD 09/27/2024 9:33 AM [facility] Hematocrit 33.3(L) 35.0 - 47.0 % LAB HEMETOLOGY METHOD 09/27/2024 9:33 AM [facility] MCV 92.2 79.0 - 98.0 FL LAB HEMETOLOGY METHOD 09/27/2024 9:33 AM [facility] MCH 29.1 27.0 - 32.0 pcg LAB HEMETOLOGY METHOD 09/27/2024 9:33 AM [facility] MCHC 31.5(L) 32.0 - 37.0 g/dL LAB HEMETOLOGY METHOD 09/27/2024 9:33 AM [facility] RDW 17.8(H) 11.0 - 15.0 % LAB HEMETOLOGY METHOD 09/27/2024 9:33 AM [facility] Platelets 397 130 - 400 K/mcL LAB HEMETOLOGY METHOD 09/27/2024 9:33 AM EST [facility] MPV 9.2 7.0 - 11.0 FL LAB HEMETOLOGY METHOD 09/27/2024 9:33 AM EST [facility] NRBC 0.0 <1.0 % LAB HEMETOLOGY METHOD 09/27/2024 9:33 AM EST [facility] NRBC Absolute 0.00 <0.10 K/mcL LAB HEMETOLOGY METHOD 09/27/2024 9:33 AM EST [facility] Blood Venous blood specimen / Unknown Venipuncture / Unknown 09/27/2024 4:53 AM EST 09/27/2024 8:45 AM EST us Mainor Crawford MD LAB BLOOD ORDERABLES Final Resul t [facility] [address] [place] [address], * (ABNORMAL) Comprehensive metabolic panel (09/27/2024 4:53 AM EST) Sodium 134 133 - 145 mmol/L LAB CHEMISTRY METHOD 09/27/2024 10:15 AM [facility] Potassium 3.8 3.5 - 5.5 mmol/L LAB CHEMISTRY METHOD 09/27/2024 10:15 AM [facility] Chloride 97 96 - 110 mmol/L LAB CHEMISTRY METHOD 09/27/2024 10:15 AM [facility] CO2 30 21 - 32 mmol/L LAB CHEMISTRY METHOD 09/27/2024 10:15 AM [facility] Anion Gap 7 3 - 11 LAB CHEMISTRY METHOD 09/27/2024 10:15 AM [facility] Glucose 108(H) 70 - 100 mg/dL LAB CHEMISTRY METHOD 09/27/2024 10:15 AM [facility] BUN 19 5 - 25 mg/dL LAB CHEMISTRY METHOD 09/27/2024 10:15 AM [facility] Creatinine 0.57 0.50 - 1.10 mg/dL LAB CHEMISTRY METHOD 09/27/2024 10:15 AM [facility] eGFR 106 >=60 mL/min/1. 73m2 LAB CHEMISTRY METHOD 09/27/2024 10:15 AM [facility] Comment:Calculation based on the??Chronic Kidney Disease Epidemiology Collaboration (CKD-EPI) equation refit??without adjustment for race. BUN/Creatinine Ratio 33.3 LAB CHEMISTRY METHOD 09/27/2024 10:15 AM [facility] Calcium 8.6 8.5 - 10.5 mg/dL LAB CHEMISTRY METHOD 09/27/2024 10:15 AM [facility] AST (SGOT) 35 10 - 42 unit/L LAB CHEMISTRY METHOD 09/27/2024 10:15 AM [facility] ALT (SGPT) 60 10 - 60 unit/L LAB CHEMISTRY METHOD 09/27/2024 10:15 AM [facility] Alkaline Phosphatase 100 42 - 121 unit/L LAB CHEMISTRY METHOD 09/27/2024 10:15 AM [facility] Total Protein 5.8(L) 6.0 - 8.0 g/dL LAB CHEMISTRY METHOD 09/27/2024 10:15 AM [facility] Albumin 2.3(L) 3.2 - 5.0 g/dL LAB CHEMISTRY METHOD 09/27/2024 10:15 AM [facility] Total Bilirubin 0.3 0.0 - 1.4 mg/dL LAB CHEMISTRY METHOD 09/27/2024 10:15 AM [facility] Blood Venous blood specimen / Unknown Venipuncture / Unknown 09/27/2024 4:53 AM EST 09/27/2024 8:45 AM EST Mainor Crawford MD LAB BLOOD ORDERABLES Final Resul t [facility] [address] [place] [address], [place] [phone] * CT Chest wo Contrast (09/20/2024 1:11 [...] Signed Date: 09/24/2024 15:52 ET Workstation ID: [id number] Transcribed By: Self Edit Transcribed Date: 09/24/2024 [...] Signed Date: 09/24/2024 15:52 ET Workstation ID: [id number] Transcribed By: Self Edit Transcribed Date: 09/24/2024 15:37 ET us Aysha Hernandez MD [facility] CT PROCEDURES Final Result * Hepatitis C antibody (07/12/2024 10:05 AM EST) Hepatitis C Antibody Negative Negative LAB CHEMISTRY METHOD 07/12/2024 1:27 PM EST [facility] Blood Venous blood specimen / Unknown Venipuncture / Unknown 07/12/2024 10:05 AM EST 07/12/2024 10:05 AM EST Lex Rich MD LAB BLOOD ORDERA BLES Final Result [facility] [address] [facility] [place] [address], [place] [phone] * SCREENING MAMMOGRAPHY BI 2-VIEW BREAST INC [...] Most Recently Relevant to Health Maintenance Insurance [facility] MEDIC[facility] Member Subscriber Plan / Payer (Ef fective 2022-Present) Name:Patricia lAexandre Relation to Subscriber:Self Name:Patricia Alexandre Payer ID:[id number] Group ID:[id number] Type:Not on file Address: [place] [address] [address] [id number] Care Teams Underwater Hunter Relationship Specialty Start Date End Date Lex Rich MD [address] [place] [id number] PCP - General Internal Medicine 05/24/24
--- OUTSIDE RECORDS SUMMARY | 2024-12-03 12:21 | XMS_ITS | Encounter Summary ---
Author Organization [facility] Address [address] [place] [address] Care Team Providers Care Director Design Name Role Phone Lex Rich MD Primary Care Pr ovider Encounter Details Date Type Department Care Team ([facility] Contact Info) Description 09/19/2024 Billing Patient Not Present Adult Medicine [address] [phone] [place] Social History Tobacco Use Types Packs/Day [...] Info) Description 12/31/2024 1:45 PM EDT Appointment [facility] Neurodiagnostic [address] [place] [phone] 01/01/2025 10:30 AM EDT Office Visit [facility] [address] [phone] Aysha Hernandez MD 175 [facility] [address] [place] [address] 01/02/2025 10:15 AM EDT Consult Orthopedic Surgery - [facility] 250 175 [facility] [address] [place] [phone] Diony Toledo, DPM [address] [address] 01/07/2025 1:45 PM EDT Appointment [facility] Neurodiagnostic [address] [place] [phone] 02/22/2025 9:45 AM EDT Office Visit [facility] - [address] [phone] Lex Rich MD [address] [place] [address] 03/13/2025 11:10 AM EDT Appointment Radiology Department - [address] [phone] 05/10/2025 10:45 AM EDT Appointment Bone Density - [address] [phone] documented as of this encounter Visit Diagnoses Not on filedocumented in this encounter Care Teams Director Design Relationship Specialty Start Date End Date Lex Rich MD [address] [place] [address] PCP - General Internal Medicine 05/24/24 documented as of this encounter
--- OUTSIDE RECORDS SUMMARY | 2024-12-03 12:21 | XMS_ITS | Data Portability ---
Author Organization [facility] [employer] [facility], Main Office Address [address] [facility] [place] [address] Care Team Providers Care Dandy Operator Name Role Phone [facility] OTHER ANKIT CRAWLEY Primary Care Provider [phone] Assessment Encounter Date Assessment Date Assessment LastModified [...] Organization Details Recorded Time Polymyalgi a rheumatica 39209759 Active 2024 Not Available [facility] 5 13:29:03 History of fall 143846517 Active 2024 DANIELLE QUEZADA CNP [address] [facility], [place], [address] , [facility] 5 13:02:11 Coronary arterioscl erosis 04529075 Active 2024 DANIELLE QUEZADA CNP [address] [facility], [address], [place], [address] , [place] [facility] 5 13:02:14 Idiopathic pulmonary fibrosis 594953511 Active 2024 ARLETTEKRIS QUEZADA, INTERIOR PAINTER [address], [place], [address] , [facility] 5 13:02:17 Insomnia 018155475 Active 2024 ARLETTEKRIS QUEZADA, INTERIOR PAINTER [address], [address], [place], [address] , [facility] 5 13:02:19 Mixed anxiety and depressive disorder 282019745 Active 2024 ARLETTEKRIS QUEZADA, INTERIOR PAINTER [address], [place], [address] , [facility] 5 13:02:20 Hyperglyce deven 28403643 Active 2024 ARLETTEKRIS QUEZADA, INTERIOR PAINTER [address], [place], [address] , [facility] 5 13:02:24 Hyperlipid emia 49507117 Active 2024 ARLETTEKRIS QUEZADA, INTERIOR PAINTER [address], [address], [place], [address] , [facility] 5 13:02:26 Atheroscle rosis of coronary artery without angina pectoris 9768848056473 03 Active 2024 Not Available [facility] 5 13:30:08 Fall Active 2024 Not Available [facility] 5 13:31:11 Anxiety disorder 284047320 Active 2024 Not Available [facility] 5 16:50:45 Depressive disorder 56494325 Active 2024 Not Available [facility] 5 11:58:52 Abnormal Active 2024 Not Available [facility] 5 12:00:40 Muscle weakness 08472979 Active 2024 Not Available [facility] 5 11:10:39 Incoordina tion 982093280 Active 2024 Not Available [facility] 5 11:10:40 Difficulty walking 035062706 Active 2024 Not Available [facility] [...] Address Organization Details Last Updated DateTime 5 85422.6 3 g 96 /min 18 /min 98.2 [degF] 96 % 96 % 122 mm[Hg] 79 mm[Hg] DANIELLE QUEZADA, INTERIOR PAINTER [address] [facility], [address], [place], [address], [facility] - [facility] 5 12:08:32 Date Recorded Body weight Body mass index (BMI) Body height Heart rate Respiratory rate Body temperature Oxygen saturation Oxygen saturation in Arterial blood by Pulse oximetry Systolic blood pressure Diastolic blood pressure Provider Name and Address Organization Details Last Updated DateTime 5 83974 g 26.6 kg/m2 152.4 cm 104 /min 16 /min 97.7 [degF] 97 % 97 % 118 mm[Hg] 72 mm[Hg] Harper Rosales MD [address] [facility] [address], [place], [address], [facility] 5 15:05:33 Date Recorded Body height Heart rate Respiratory rate Body temperature Oxygen saturation Oxygen saturation in Arterial blood by Pulse oximetry Systolic blood pressure Diastolic blood pressure Provider Name and Address Organization Details Last Updated DateTime 5 152.4 cm 96 /min 18 /min 98 [degF] 98 % 98 % 118 mm[Hg] 72 mm[Hg] YARA CABALLERO [address] [place] [address] [address], [place], [address], [facility] 5 19:41:13 Date Recorded Body height Body mass index (BMI) Body weight Heart rate Respiratory rate Body temperature Oxygen saturation Oxygen saturation in Arterial blood by Pulse oximetry Systolic blood pressure Diastolic blood pressure Provider Name and Address Organization Details Last Updated DateTime 5 152.4 cm 26.5 kg/m2 42356.4 8 g 83 /min 18 /min 97.6 [degF] 95 % 95 % 126 mm[Hg] 69 mm[Hg] YARA CABALLERO [address] [place] [address], [address], [place], [address], [facility] 5 11:10:53 Social History Question Answer Notes LastModified by Organizat ion Details LastModified Time Tobacco Smoking Status Never Smoker DANIELLE QUEZADA CNP [address] [facility], [place], [address], [facility] 09/27/2024 11:20:38 Do You Have An Advance Directive? Yes Information not available 10/02/2024 What Is Your Code Status? DNI No G-tube Information not available 09/27/2024 Where Do You Live? Apartment Lives Alone, 3rd Floor, No Elevator. Information not available 10/02/2024 Legal Guardian? No Informati on not available 10/02/2024 Do You Have A Medical Power Of [employer]? Yes Information not available 10/02/2024 What Was The Date Of Your Most Recent Tobacco Screening? 09/27/2024 Information not available 09/27/2024 Do You Have An Out Of Hospital DNR? No Information not available 10/02/2024 What Is Your Relationship Status? Single Information not available 10/02/2024 Has Tobacco Cessation Counseling Been Provided? No N/a As Pt Is A Non-smoke r Information not available 10/02/2024 Sex: Unknown Functional Status Question Answer Note LastModified by Organizat ion Details LastModified Time Do you use any illicit or recreational drugs? No Information not available 09/27/2024 Do you or have you ever used any other forms of tobacco or nicotine? No Information not available 09/27/2024 What is your level of alcohol consumption? None Information not available 09/27/2024 Mental Status None recorded. Family History Relationship [...] Organization Details Recorded Time Tdap 04/19/2023 completed Tarsha Segovia [facility] 09/27/2024 13:01:36 influenza, unspecified formulation 04/19/2023 completed Tarsha Segovia [facility] 09/27/2024 13:01:50 Past Encounters Encounter ID Performer Location Encounter Start Date Encounter Closed Date Diagnosis/Indication Diagnosis SNOMED-CT Code Diagnosis ICD10 Code Diagnosis Note [id number] DANIELLE QUEZADA CNP [facility] [address] [place] [address] 09/27/2024 10:45:11 10/02/2024 13:55:38 Polymyalgia rheumatica 13055001 M35.3 Flare up with bilateral lower extremity [...] s/s of flare up. History of fall 04003483 9 Z91.81 S/t PMR flare up and weakness.P T and OT for strength, gait training and safety.Mor se screen on 09/27/24, scored high risk. Idiopathic pulmonary fibrosis 643579190 J84.112 OFev 150 mg BID.Contin ue monitor. Insomnia 639485093 G47.0 0 Prazosin 1 mg qHS.Trazod one 100 mg qHS.Stable , continue monitor. Coronary arteriosclerosis 92633475 I25.10 Isosorbide mononitrat e 30 mg ER daily.Resu me aspirin 81 mg daily.VSS, continue to monitor. Mixed anxi ety and depressive disorder 952139851 F41.8 Buspirone 7.5 BID.Mood is stable, continue monitor.Ps y therapy PRN Hyperglycemia 46650579 R 73.9 Likely due to steroid.Gl ucose stable, will continue monitor. Hyperlipidemia 43806881 E78.5 Continue atorvastat in 40 mg daily. [id number] Harper Rosales MD [facility] [address] [place] [address] 10/02/2024 13:38:53 10/04/2024 11:04:53 Polymyalgia rheumatica 78895292 M35.3 Per inpt notes, not completely c/w [...] with rheum as planned. History of fall 98255446 9 Z91.81 PT/OT as above.Hali tor for safety. Coronary arteriosclerosis 69427705 I25.10 No recent sxs.Contin ue isosorbide mononitrat e 30 mg ER qd, ASA 81 mg qd and atorvastat in 40 mg qd.Monitor for cardio sxs.F/U with cardio as planned. Idiopathic pulmonary fibrosis 930138006 J84.112 Continue Ofev 150 mg BID.Monito r resp status.F/U with pulmonary as planned. Insomnia 540971964 G47.0 0 Meds as above,Hali tor sleep patterns. Mixed anxi ety and depressive disorder 245707127 F41.8 F32.89 Mood good today.Cont inue buspirone 7.5 BID, prazosin 1 mg qhs and trazadone 100 mg qhs.Mood is stable, continue monitor.Ps y therapy PRN Hyperglycemia 89657032 R 73.09 Glucose only mildly elevated here.With HgA1C of 6.4 inpt.Likel y due to steroids.C ontinue to encourage healthy eating.Mon itor as outpt. Hyperlipidemia 16433573 E78.49 Continue atorvastat in 40 mg qdMonitor labs as outpt. [id number] [place] [address] 10/05/2024 18:12:50 10/11/2024 15:02:23 Polymyalgia rheumatica 80162936 M35.3 continues with burning pain in finger joint and legswill increase gabapentin to 300 mg TIDCurrent ly is on prednisone taper.15 mg daily for 2 weeks, then wean 2.5 mg q 2 weekly.Praveen lofen 10 mg TID for pain.Yary nue monitor the pain and effectiven ess, [id number] [place] [address] 10/12/2024 10:28:50 10/16/2024 10:09:49 Polymyalgia rheumatica 89902420 M35.3 polymyalgi a rheumatica -Per inpt notes, [...] with PCP as planned History of fall 32618971 9 Z91.81 Monitor for safety. Coronary arteriosclerosis 86735385 I25.10 Continue isosorbide mononitrat e 30 mg ER qd, ASA 81 mg qd and atorvastat in 40 mg qd.Monitor for cardio sxs.F/U with cardio as planned. Idiopathic pulmonary fibrosis 777159997 J84.112 Continue Ofev 150 mg BID.Monito r resp status.F/U with pulmonary as planned. Mixed anxi ety and depressive disorder 223622343 F41.8 F32.89 Continue buspirone 7.5 BID, prazosin 1 mg qhs and trazadone 100 mg qhs. Insomnia 018420838 G47.0 0 Meds as above, Hyperglycemia 81501417 R 73.09 Glucose only mildly elevatedWi th HgA1C of 6.4 inpt.Likel y due to steroids.C ontinue to encourage healthy eating.Mon itor as outpt. Hyperlipidemia 13321593 E78.49 Continue atorvastat in 40 mg qdMonitor labs as outpt. Health Concerns Section Related Observation LastModified by Organization Detai ls LastModified Time None Recorded Concern Status LastModified by Organization Details LastModified Time None Recorded Advance Directives Directive Y: Payers Encounter Date Sequence Insurance Name Policy Number Policy Haywood Covered Member ID Haywood Member ID Guarantor Name 09/27/2024 1 [facility] - DOS ON OR AFTER 2022 - MEDICARE [place]/ADV ANTAGE - PPO) Patricia Alexandre [id number] Patricia Alexandre 10/02/2024 1 [facility] - DOS ON OR AFTER 2022 - [place]/ADV ANTAGE - PPO) Patricia Alexandre [id number] Patricia Alexandre 10/05/2024 1 [facility] - DOS ON OR AFTER 2022 - [place]/ADV ANTAGE - PPO) Patricia Alexandre [id number] Patricia Alexandre 10/12/2024 1 [facility] - DOS ON OR AFTER 2022 - [place]/ADV ANTAGE - PPO) Patricia Alexandre [id number] Patricia Alexandre Notes Date Note Type Note Provider Name and Address Organization Details Recorded Time 09/27/2024 text/html Patricia is 58 y/o a Romanian-speaking female admitted to [facility] [place] [facility] PMH significant for Polymyalgia rheumatica, positive MADY, and RF, idiopathic pulmonary fibrosis, CAD, HLD and depression. Pt presented to [facility] on 09/23/24 due to increase increased [...] done on 09/27/24, scored high risk. DANIELLE QUEZADA, INTERIOR PAINTER [address] [facility], [address], [place], [address], [facility] - [facility] 09/27/2024 15:11:28 10/02/2024 text/html This is a 58 yo woman who is here for rehab after an acute hospitalization for a severe PMR flare causing inability to walk.She also has mod/severe ILD at baseline causing chronic SOB and asthenia. She presented to the [facility] [place] on 09/23 due to increasing leg pain and weakness.She had been inpt [place] [facility] [place] for similar sxs and was txed with solumedrol and then put on prednisone taper. She had been doing well at home until about a week FOOT DOCTOR when her left leg gave out and [...] gabapentin on 09/27.I see her with a latvian speaking staff member.She tells me burning pain is a little better, but still bad.No other c/o. Her PMH includes PMR with + MADY and RF, idiopathic pulmonary fibrosis, CAD, elevated blood sugars when on prednisone (HgA1C 6.4), HLD and insomnia, anxiety/depression. Harper Rosales MD [address] [facility], [address], [place], [address], [facility] 10/02/2024 22:44:50 10/05/2024 text/html This is a [...] continues to be bothersome. YARA CABALLERO [address] [facility], [address], [place], [address], [facility] 10/10/2024 19:41:49 10/12/2024 text/html Discharge Summar y Summarized from [facility] This is a 58 yo woman with a PMH includes PMR with + MADY and RF, idiopathic pulmonary fibrosis, CAD, elevated blood sugars when on prednisone (HgA1C 6.4), HLD and insomnia, anxiety/depression. Admitted to [facility] for rehab after an acute hospitalization for a severe PMR flare causing inability to walk.She also has mod/severe ILD at baseline causing chronic SOB and asthenia. She presented to [place] [facility] [place] on 09[place]23 due to increasing leg pain and weakness.She was admitted due to being unable to bear wt on legs due to pain.She was txed with solumedrol and then transitioned to po prednisone to do a prolonged taper. She had been inpt [place] [facility] [place] for similar sxs and was txed [...] and VNA with services. YARA CABALLERO [address] [facility], [address], [place], [address], [employer] 10/12/2024 11:43:33 OBGyn Episode No OBEpisode recorded.
--- OUTSIDE RECORDS SUMMARY | 2024-12-03 12:21 | XMS_ITS | Encounter Summary ---
Author Organization [facility] Address [address] [place] [address] Care Team Providers Care Beamster Name Role Phone Lex Rich MD Primary Care Pr ovider Encounter Details Date Type Department Care Team (Late Contact Info) Description 10/07/2024 Lab Requisition [facility] - Main Lab [address] [facility] [place] [address] Mainor rCawford MD [address] [facility] [address] [place], [address] Polymyalgia rheumatica ([facility]/HCC V24) Social History Tobacco Use Types Packs/Day [...] Info) Description 12/31/2024 1:[address] [facility]diagnostic [address] [place] [address] 01/01/2025 10:30 AM EDT [facility] [address] [facility] [address] [place] [address] Aysha Hernandez MD [address] [facility] [address] [place] [address] 01/02/2025 10:15 AM EDT Consult Orthopedic Surgery - [place] [address] [facility] [address] [place] [address] Diony Toledo DPM 175 [facility] [address] [place] [address] 01/07/2025 1:[address] [facility] [address] [place] [address] 02/22/2025 9:45 AM EDT Office Visit Adult Medicine South - [address] [phone] Lex Rich MD [address] [place] [address] 03/13/2025 11:10 AM EDT Appointment Radiology Department - [address] [phone] 05/10/2025 10:45 AM EDT Appointment [facility] - [address] [phone] documented as of this encounter Procedures Procedure Name Priority Date/Time Associated Diagnosis Comments PREALBUMIN Routine 10/08/2024 5:24 AM EDT Polymyalgia rheumatica (CMS/HCC) documented in this encounter Results * Prealbumin (10/08/2024 5:24 AM EDT) Prealbumin 27 18 - 45 mg/dL LAB CHEMISTRY METHOD 10/08/2024 11:51 AM EDT [facility] Blood Venous blood specimen / Unknown Venipuncture / Unknown 10/08/2024 5:24 AM EDT 10/08/2024 10:33 AM EDT us Mainor Crawford MD LAB BLOOD ORDERABLES Final Resul t [facility] [address] [place] [address], documented in this encounter Visit Diagnoses Diagnosis Polymyalgia rheumatica (CMS/HCC V24) Polymyalgia rheumatica Encounter for screening mammogram for breast cancer documented in this encounter Care Teams Beamster Relationship Specialty Start Date End Date Lex Rich MD [address] [place] [address] PCP - General Internal Medicine 05/24/24 documented as of this encounter
--- OUTSIDE RECORDS SUMMARY | 2024-12-03 12:21 | XMS_ITS | Clinical Summary ---
Author Organization [employer] Address [address] [facility] [address] [place] [address] Care Team Providers Care Tattoo Designer Name Role Phone Unavailable Primary Care Provider [...] patient's age to complete this topic Insurance [facility] STANDARD MEDICARE
== END 2024-12-03 11:32 | disposition home or self-care (01) ==
LOC: HO.HMGCX 11:31
PROVIDERS: PCP Family Medicine; Visit Provider Registered Nurse Emergency
DX: M47.816 Spondylosis without myelopathy or radiculopathy, lumbar region (principal); M53.3 Sacrococcygeal disorders, not elsewhere classified
CPT/HCPCS: 72110; 72202

== ENCOUNTER → 2024-12-03 11:35 | Outpatient (BNV) | payer OTHER, SELFPAY | PROVIDERS: PCP Family Medicine; Visit Provider Radiology Diagnostic Radiology | DX: M47.895 Other spondylosis, thoracolumbar region (principal); M16.0 Bilateral primary osteoarthritis of hip | CPT/HCPCS: 72110; 72202 ==

== ENCOUNTER 2025-02-12 06:07 | Outpatient (REF) | payer OTHER, SELFPAY ==
--- OUTSIDE RECORDS SUMMARY | 2024-09-20 01:00 | XMS_ITS | Encounter Summary ---
Demographics Address [address] [facility] [place] [address] Home Phone Mobile Phone Email Address Preferred Language Scottish; Castilian Marital Status Single Anglican Affiliation Unknown Race Other Race Ethnic Group or Author Organization [facility] Address [address] [place] [address] Phone Care Team Providers Care Auto Care Center Manager Name Role Phone Lex Rich MD Primary Care Pr ovider Encounter Details Date Type Department Care Team (Late st Contact Info) Description 09/20/2024 Hospital Encounter [facility] [address] [place] [address] Jack Gibbons MD [address] [employer] [address] [place] [address] [email or web address] Social History Tobacco Use Types Packs/Day Years Used Date Smoking Tobacco: Never Assessed Education Answer Date Recorded Are you interested in more education? Not on sergey e 03/07/2024 Are you concerned about learning? Not on file 03/07/2024 No 03/07/2024 No 03/07/2024 Digital Access Answer Date Recorded No 03/07/2024 No 03/07/2024 Reliable internet access at home? Not on file 03/07/2024 Device with a working camera? Not on file Comments Unknown Sex and Gender Information Value Date Recorded Sex Assigned at Not on file Legal Sex Female 11:12 AM EDT Gender Identity Not on file Sexual Orientation Not on file documented as of this encounter Plan of Treatment Not on file documented as of this encounter Procedures Procedure Name Priority Date/Time Associated Diagnosis Comments CT CHEST OUTSIDE (NO INTERPRETATION) Routine 09/20/2024 12:00 AM EST documented in this encounter Results * CT Chest Outside (No Interpretation) (09/20/2024 12:00 AM EST) Narrative [facility] IMG INTERFACES - 02/11/2025 1:25 PM EDT This study is for PACS storage only and not for interpretation. us Jack Gibbons MD IMG OUTSIDE IMAGING W/OUT INTERPRETATION Final Result [facility] IMG INTERFACES documented in this encounter Visit Diagnoses Not on filedocumented in this encounter Care Teams Auto Care Center Manager Relationship Specialty Start Date End Date Lex Rich MD PCP - General Family Medicine 02/20/24 documented as of this encounter Additional Source Comments The information contained in this document represents components of the legal health record. It is not the complete legal health record.[facility]
--- NOTE | ~2025-02-12 | FL_ITS ---
EXAMINATION: FL GUIDANCE ONLY HISTORY: M47.816 - Spondylosis without myelopathy or radiculopathy, lumbar region COMPARISON: None available. TECHNIQUE: Fluoroscopy time: 0.3 minutes. Cumulative Dose: 3.64 mGy. DAP: 0.0524 mGym2 Images: 2. FINDINGS: Fluoroscopic spot films of the pelvis demonstrate needles and contrast material in the regions of the bilateral sacroiliac joints. FL/FL guidance in treatment room IMPRESSION: Fluoroscopy during procedure. Please see procedure report for additional information. Electronically signed by: Jack Jeff MD 02/12/2025 11:45 AM EDT
--- OUTSIDE RECORDS SUMMARY | 2025-02-12 06:09 | XMS_ITS | Encounter Summary ---
Author Organization [facility] Address [address] [place] [address] Care Team Providers Care Melt House Centrifugal Operator Name Role Phone Lex Rich MD Primary Care Pr ovider Encounter Details Date Type Department Care Team (Late Contact Info) Description 09/27/2024 Lab Requisition [facility] - Main Lab [address] [facility] [place] [address] Mainor Crawford MD [address] [place] [address], [address] Polymyalgia rheumatica (CMS/HCC V24) Social History Tobacco Use Types Packs/Day [...] Upcoming Encounters Date Type Department Care Team ([facility] Contact Info) Description 02/22/2025 9:45 AM EDT Office Visit Adult Medicine [address] [address] Lex Rich MD [address] [place] [address] 03/13/2025 11:10 AM EDT Appointment Radiology Department - [place] [address] [place] [address] 04/04/2025 10:00 AM EDT Office Visit Orthopedic Surgery - [place] [address] [facility] [address] [place] [address] Diony Toledo DPM [address] [address] 05/10/2025 10:45 AM EDT Appointment [facility]ensity - [place] [address] [place] [address] 05/16/2025 11:45 AM EDT Office Visit Pulmonolgy - [place] 175 [facility] 200 [place] [address] Aysha Hernandez MD 175 [facility] 200 [place] [address] documented as of this encounter Procedures Procedure Name Priority Date/Time Associated Diagnosis Comments COMPLETE BLOOD COUNT Routine 09/27/2024 4:53 AM EST Polymyalgia rheumatica ([facility]/HCC) COMPREHENSIVE METABOLIC PANEL Routine 09/27/2024 4:53 AM EST Polymyalgia rheumatica ([facility]/HCC) documented in this encounter Results * (ABNORMAL) Comprehensive metabolic panel (09/27/2024 4:53 AM EST) Sodium 134 133 - 145 mmol/L LAB CHEMISTRY METHOD 09/27/2024 10:15 AM EST [facility] Potassium 3.8 3.5 - 5.5 mmol/L LAB CHEMISTRY METHOD 09/27/2024 10:15 AM EST [facility] Chloride 97 96 - 110 mmol/L LAB CHEMISTRY METHOD 09/27/2024 10:15 AM EST [facility] CO2 30 21 - 32 mmol/L LAB CHEMISTRY METHOD 09/27/2024 10:[address] [facility] Anion Gap 7 3 - 11 LAB CHEMISTRY METHOD 09/27/2024 10:[address] [facility] Glucose 108(H) 70 - 100 mg/dL LAB CHEMISTRY METHOD 09/27/2024 10:[address] [facility] BUN 19 5 - 25 mg/dL LAB CHEMISTRY METHOD 09/27/2024 10:[address] [facility] Creatinine 0.57 0.50 - 1.10 mg/dL LAB CHEMISTRY METHOD 09/27/2024 10:[address] [facility] eGFR 106 >=60 mL/min/1. 73m2 LAB CHEMISTRY METHOD 09/27/2024 10:[address] [facility] Comment:Calculation based on the Chronic Kidney Disease Epidemiology Collaboration (CKD-EPI) equation refit without adjustment for race. BUN/Creatinine Ratio 33.3 LAB CHEMISTRY METHOD 09/27/2024 10:[address] [facility] Calcium 8.6 8.5 - 10.5 mg/dL LAB CHEMISTRY METHOD 09/27/2024 10:[address] [facility] AST (SGOT) 35 10 - 42 unit/L LAB CHEMISTRY METHOD 09/27/2024 10:[address] [facility] ALT (SGPT) 60 10 - 60 unit/L LAB CHEMISTRY METHOD 09/27/2024 10:[address] [facility] Alkaline Phosphatase 100 42 - 121 unit/L LAB CHEMISTRY METHOD 09/27/2024 10:[address] [facility] Total Protein 5.8(L) 6.0 - 8.0 g/dL LAB CHEMISTRY METHOD 09/27/2024 10:[address] [facility] Albumin 2.3(L) 3.2 - 5.0 g/dL LAB CHEMISTRY METHOD 09/27/2024 10:[address] [facility] Total Bilirubin 0.3 0.0 - 1.4 mg/dL LAB CHEMISTRY METHOD 09/27/2024 10:[address] [facility] Blood Venous blood specimen / Unknown Venipuncture / Unknown 09/27/2024 4:53 AM EST 09/27/2024 8:45 AM EST us Mainor Crawford MD LAB BLOOD ORDERABLES Final Resul t [facility] [address] [place] [address], [place] [phone] * (ABNORMAL) Complete blood count (09/27/2024 4:53 AM EST) WBC 8.7 4.8 - 10.8 K/mcL LAB HEMETOLOGY METHOD 09/27/2024 9:[address] [facility] RBC 3.60(L) 3.80 - 4.80 M/mcL LAB HEMETOLOGY METHOD 09/27/2024 9:[address] [facility] Hemoglobin 10.5(L) 11.5 - 16.0 g/dL LAB HEMETOLOGY METHOD 09/27/2024 9:[address] [facility] Hematocrit 33.3(L) 35.0 - 47.0 % LAB HEMETOLOGY METHOD 09/27/2024 9:[address] [facility] MCV 92.2 79.0 - 98.0 FL LAB HEMETOLOGY METHOD 09/27/2024 9:[address] [facility] MCH 29.1 27.0 - 32.0 pcg LAB HEMETOLOGY METHOD 09/27/2024 9:[address] [facility] MCHC 31.5(L) 32.0 - 37.0 g/dL LAB HEMETOLOGY METHOD 09/27/2024 9:[address] [facility] RDW 17.8(H) 11.0 - 15.0 % LAB HEMETOLOGY METHOD 09/27/2024 9:33 AM EST [facility] Platelets 397 130 - 400 K/mcL LAB HEMETOLOGY METHOD 09/27/2024 9:33 AM EST [facility] MPV 9.2 7.0 - 11.0 FL LAB HEMETOLOGY METHOD 09/27/2024 9:33 AM EST [facility] NRBC 0.0 <1.0 % LAB HEMETOLOGY METHOD 09/27/2024 9:33 AM EST [facility] NRBC Absolute 0.00 <0.10 K/mcL LAB HEMETOLOGY METHOD 09/27/2024 9:[address] [facility] Blood Venous blood specimen / Unknown Venipuncture / Unknown 09/27/2024 4:53 AM EST 09/27/2024 8:45 AM EST us Mainor Crawford MD LAB BLOOD ORDERABLES Final Resul t [facility] [address] [place] [address], documented in this encounter Visit Diagnoses Diagnosis Polymyalgia rheumatica (CMS/HCC V24) Polymyalgia rheumatica Encounter for screening mammogram for breast cancer documented in this encounter Care Teams Melt House Centrifugal Operator Relationship Specialty Start Date End Date Lex Rich MD [address] [place] [address] PCP - General Internal Medicine 05/24/24 documented as of this encounter
--- OUTSIDE RECORDS SUMMARY | 2025-02-12 06:09 | XMS_ITS | Data Portability ---
Author Organization [facility], Main Office Address [address] [address] [place] [address] Care Team Providers Care Branch Manager Name Role Phone [facility] OTHER ANKIT CRAWLEY Primary [...] Name and Address Organization Details Recorded Time Atheroscle rosis of coronary artery without angina pectoris 8919897070690 03 Active 2024 Not Available [facility] 13:30:08 Fall Active 2024 Not Available [facility] 13:31:11 Anxiety disorder 951503275 Active 2024 Not Available [facility] 16:50:45 Depressive disorder 32478062 Active 2024 Not Available [facility] 5 11:58:52 Abnormal Active 2024 Not Available [facility] 5 12:00:40 Muscle weakness 88761488 Active 2024 Not Available [facility] 5 11:10:39 Incoordina tion 053823157 Active 2024 Not Available [facility] 5 11:10:40 Difficulty walking 390012182 Active 2024 Not Available [facility] 5 11:11:53 Polymyalgi a rheumatica 06652200 Active 2024 Not Available [facility] 5 13:29:03 History of fall 293429947 Active 2024 DANIELLE QUEZADA CNP [address] , [address], [place], [address] , [facility] 5 13:02:11 Coronary arterioscl erosis 36090496 Active 2024 DANIELLE QUEZADA CNP [address], [address], [place], [address] , [facility] 5 13:02:14 Idiopathic pulmonary fibrosis 016982217 Active 2024 DANIELLE QUEZADA CNP [address], [address], [place], [address] , [facility] 5 13:02:17 Insomnia 703788950 Active 2024 DANIELLE QUEZADA CNP [address], [address], [place], [address] , [facility] 5 13:02:19 Mixed anxiety and depressive disorder 471758688 Active 2024 DANIELLE QUEZADA CNP [address], [address], [place], [address] , [facility] 5 13:02:20 Hyperglyce deven 46382014 Active 2024 DANIELLE QUEZADA CNP [address], [address], [place], [address] , [place] [facility] 5 13:02:24 Hyperlipid emia 31675089 Active 2024 DANIELLE QUEZADA, HAND FOLDER [address] [facility], [address], [place], [address] , [place] [facility] 13:02:26 Problem Notes None recorded. Medical Equipment None [...] in Arterial blood by Pulse oximetry Systolic And Diastolic Provider Name and Address Organization Details Last Updated DateTime 5 31207.6 3 g 96 /min 18 /min 98.2 [degF] 96 % 96 % 122/79 mm[Hg] DANIELLE QUEZADA, REINA [address] [facility], [address], [place], [address], [place] [facility] 5 12:08:32 Date Recorded Body weight Body mass index (BMI) Body height Heart rate Respiratory rate Body temperature Oxygen saturation Oxygen saturation in Arterial blood by Pulse oximetry Systolic And Diastolic Provider Name and Address Organization Details Last Updated DateTime 5 40974 g 26.6 kg/m2 152.4 cm 104 /min 16 /min 97.7 [degF] 97 % 97 % 118/72 mm[Hg] Harper Rosales MD [address] [facility], [facility] [address], [place], [address], [facility] 5 15:05:33 Date Recorded Body height Heart rate Respiratory rate Body temperature Oxygen saturation Oxygen saturation in Arterial blood by Pulse oximetry Systolic And Diastolic Provider Name and Address Organization Details Last Updated DateTime 5 152.4 cm 96 /min 18 /min 98 [degF] 98 % 98 % 118/72 mm[Hg] YARA CABALLERO [address] [facility], [address], [place], [address], [facility] 5 19:41:13 Date Recorded Body height Body mass index (BMI) Body weight Heart rate Respiratory rate Body temperature Oxygen saturation Oxygen saturation in Arterial blood by Pulse oximetry Systolic And Diastolic Provider Name and Address Organization Details Last Updated DateTime 5 152.4 cm 26.5 kg/m2 46164.4 8 g 83 /min 18 /min 97.6 [degF] 95 % 95 % 126/69 mm[Hg] YARA CABALLERO [address] [facility], [facility] [address], [place], [address], [employer] 5 11:10:53 Social History Question Answer Notes LastModified by Organizat ion Details LastModified Time Tobacco Smoking Status Never Smoker DANIELLE QUEZADA CNP [address] [facility], [facility] [address], [place], [address], [facility] 09/27/2024 11:20:38 Do You Have An Advance Directive? Yes Information not available 10/02/2024 What Is Your Code Status? DNI No G-tube Information not available 09/27/2024 Where Do You Live? Apartment Lives Alone, 3rd Floor, No Elevator. Information not available 10/02/2024 Legal Guardian? No Informati on not available 10/02/2024 Do You Have A Medical Power Of Skating Carhop? Yes Information not available 10/02/2024 What Was [...] Details Recorded Time Tdap 04/19/2023 completed [facility] 09/27/2024 13:01:36 influenza, unspecified formulation 04/19/2023 completed T[facility] 09/27/2024 13:01:50 Past Encounters Encounter ID Performer Location Encounter Start Date Encounter Closed Date Diagnosis/Indication Diagnosis SNOMED-CT Code Diagnosis ICD10 Code Diagnosis Note [id number] REINA BROTHERS [address] [place] [address] 09/27/2024 10:45:11 10/02/2024 13:55:38 Polymyalgia rheumatica 17309050 M35.3 Flare up with bilateral lower extremity [...] s/s of flare up. History of fall 38000184 9 Z91.81 S/t PMR flare up and weakness.P T and OT for strength, gait training and safety.Mor se screen on 09/27/24, scored high risk. Idiopathic pulmonary fibrosis 082670427 J84.112 OFev 150 mg BID.Contin ue monitor. Insomnia 174077598 G47.0 0 Prazosin 1 mg qHS.Trazod one 100 mg qHS.Stable , continue monitor. Coronary arteriosclerosis 39129157 I25.10 Isosorbide mononitrat e 30 mg ER daily.Resu me aspirin 81 mg daily.VSS, continue to monitor. Mixed anxi ety and depressive disorder 464375415 F41.8 Buspirone 7.5 BID.Mood is stable, continue monitor.Ps y therapy PRN Hyperglycemia 87579036 R 73.9 Likely due to steroid.Gl ucose stable, will continue monitor. Hyperlipidemia 62121384 E78.5 Continue atorvastat in 40 mg daily. [id number] Harper Rosales MD [facility] [address] [place] [address] 10/02/2024 13:38:53 10/04/2024 11:04:53 Polymyalgia rheumatica 52928180 M35.3 Per inpt notes, not completely c/w [...] with rheum as planned. History of fall 16348140 9 Z91.81 PT/OT as above.Hali tor for safety. Coronary arteriosclerosis 15467230 I25.10 No recent sxs.Contin ue isosorbide mononitrat e 30 mg ER qd, ASA 81 mg qd and atorvastat in 40 mg qd.Monitor for cardio sxs.F/U with cardio as planned. Idiopathic pulmonary fibrosis 479876234 J84.112 Continue Ofev 150 mg BID.Monito r resp status.F/U with pulmonary as planned. Insomnia 243388399 G47.0 0 Meds as above,Hali tor sleep patterns. Mixed anxi ety and depressive disorder 127416292 F41.8 F32.89 Mood good today.Cont inue buspirone 7.5 BID, prazosin 1 mg qhs and trazadone 100 mg qhs.Mood is stable, continue monitor.Ps y therapy PRN Hyperglycemia 50428904 R 73.09 Glucose only mildly elevated here.With HgA1C of 6.4 inpt.Likel y due to steroids.C ontinue to encourage healthy eating.Mon itor as outpt. Hyperlipidemia 37805166 E78.49 Continue atorvastat in 40 mg qdMonitor labs as outpt. [id number] [place] [address] 10/05/2024 18:12:50 10/11/2024 15:02:23 Polymyalgia rheumatica 09499230 M35.3 continues with burning pain in finger joint and legswill increase gabapentin to 300 mg TIDCurrent ly is on prednisone taper.15 mg daily for 2 weeks, then wean 2.5 mg q 2 weekly.Praveen lofen 10 mg TID for pain.Yary nue monitor the pain and effectiven ess, [id number] YARA CABALLERO [facility] [address] [place] [address] 10/12/2024 10:28:50 10/16/2024 10:09:49 Polymyalgia rheumatica 14183335 M35.3 polymyalgi a rheumatica -Per inpt notes, [...] with PCP as planned History of fall 95912811 9 Z91.81 Monitor for safety. Coronary arteriosclerosis 10134716 I25.10 Continue isosorbide mononitrat e 30 mg ER qd, ASA 81 mg qd and atorvastat in 40 mg qd.Monitor for cardio sxs.F/U with cardio as planned. Idiopathic pulmonary fibrosis 692099939 J84.112 Continue Ofev 150 mg BID.Monito r resp status.F/U with pulmonary as planned. Mixed anxi ety and depressive disorder 827315965 F41.8 F32.89 Continue buspirone 7.5 BID, prazosin 1 mg qhs and trazadone 100 mg qhs. Insomnia 056508561 G47.0 0 Meds as above, Hyperglycemia 60514737 R 73.09 Glucose only mildly elevatedWi th HgA1C of 6.4 inpt.Likel y due to steroids.C ontinue to encourage healthy eating.Mon itor as outpt. Hyperlipidemia 87956663 E78.49 Continue atorvastat in 40 mg qdMonitor labs as outpt. Health Concerns Section Related Observation LastModified by Organization Detai ls LastModified Time None Recorded Concern Status LastModified by Organization Details LastModified Time None Recorded Advance Directives Directive Y: Payers Insurance Date Sequence Insurance Name Policy Number Policy Haywood Covered Member ID Haywood Member ID Guarantor Name 10/12/2024 1 [facility] - DOS ON OR AFTER 2022 - MEDICARE ADVANTAGE [place] (MEDICARE REPLACEMENT/ADV ANTAGE - PPO) Patricia Alexandre [id number] Patricia Alexandre Notes Date Note Type Note Provider Name and Address Organization Details Recorded Time 09/27/2024 text/html Patricia is 58 y/o a Setswana-speaking female admitted to [facility] on [place]26[place]24 [place] [facility] [place] PMH significant for Polymyalgia rheumatica, positive MADY, and RF, idiopathic pulmonary fibrosis, CAD, HLD and depression. Pt presented [place] [facility] [place]24 due to increase increased [...] on 09/27/24, scored high risk. DANIELLE QUEZADA, HAND FOLDER [address] [facility] [address], [address], [place], [address], [employer] [facility] 09/27/2024 15:11:28 10/02/2024 text/html This is a 58 yo woman who is here for rehab after an acute hospitalization for a severe PMR flare causing inability to walk.She also has mod/severe ILD at baseline causing chronic SOB and asthenia. She presented [place] [facility] [place]23 due to increasing leg pain and weakness.She had [place] in[place] [facility] [place] for similar sxs and was txed with solumedrol and then put on prednisone taper. 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 Her PMH includes PMR with + MADY and RF, idiopathic pulmonary fibrosis, CAD, elevated blood sugars when on prednisone (HgA1C 6.4), HLD and insomnia, anxiety/depression. Harper Rosales MD [address], [address], [place], [address], [facility] 10/02/2024 22:44:50 10/05/2024 text/html This is [...] continues to be bothersome. YARA CABALLERO [address], [address], [place], [address], [facility] 10/10/2024 19:41:49 10/12/2024 text/html Discharge Summar y Summarized from MD Tao This is a 58 yo woman with a PMH includes PMR with + MADY and RF, idiopathic pulmonary fibrosis, CAD, elevated blood sugars when on prednisone (HgA1C 6.4), HLD and insomnia, anxiety/depression. Admitted to [place] for rehab after an acute hospitalization for a severe PMR flare causing inability to walk.She also has mod/severe ILD at baseline causing chronic SOB and asthenia. She presented to [place] [facility] [place]23 due to increasing leg pain and weakness.She was admitted due to being unable to bear wt on legs due to pain.She was txed with solumedrol and then transitioned to po prednisone to do a prolonged taper. She had been in[place] [facility] [place] for similar sxs and was txed [...] and VNA with services. YARA CABALLERO [address], [address], [place], [address], [facility] 10/12/2024 11:43:33 OBGyn Episode No OBEpisode recorded.
== END 2025-02-12 06:08 | disposition home or self-care (01) ==
LOC: CF 06:07
PROVIDERS: Visit Provider Anesthesiology
DX: M53.3 Sacrococcygeal disorders, not elsewhere classified (principal)
CPT/HCPCS: 27096; J2003; J2795; Q9967

== ENCOUNTER 2025-02-12 08:20 | Outpatient (AMB) | payer OTHER, SELFPAY ==
--- OUTSIDE RECORDS SUMMARY | 2025-02-12 08:27 | XMS_ITS | Encounter Summary ---
Author Organization [employer] Address [address] [facility] 7[address] [place] [address] Care Team Providers Care Disaster Recovery Consultant Name Role Phone Unavailable Primary Care Provider Unavailabl e Reason for Visit * Reason Onset Date Comments New Patient 04/12/2023 Encounter Details Date Type Department Care Team (Late st Contact Info) Description 04/12/2023 Telephone [facility] [address] [place] [address] Oumar Chen MD [address] [place] [address] New Patient Social History Tobacco Use Types [...] PM EDT Tc to pt, to offer Lard Renderer appt, No answer answer, could not leave voicemail due to not being set up . documented in this encounter Plan of Treatment Not on file documented as of this encounter Visit Diagnoses Not on filedocumented in this encounter
[2025-02-12 09:05] VITALS: BP 97/69; PULSE 92; RESP 18; O2SAT 99
--- NOTE | 2025-02-12 09:05 | MHC.OFFVIS ---
Vital Signs 02/12/25 09:05 02/12/25 09:51 Weight 110 lb BP 97/69 103/78 Blood Pressure Location Lt brachial Lt brachial Position Sitting Sitting Respiration 18 18 Pulse 92 86 Pulse Source Pulse Oximeter Pulse Oximeter Pulse Oximetry (%) 99 97 Oxygen Delivery Method Room Air Room Air Intake Visit Reasons: BILATERAL DIAGNOSTIC SIJ INJECTIONS Exploration Driller Required: Yes Exploration Driller Name: [id number] Allergies No Known Allergies Allergy (Verified 11/28/24 11:50) [facility] Medical History (Updated 11/28/24 @ 16:02 by Kat Mays APRN, ROCKET TEST FIRE WORKER) CAD (coronary artery disease) Idiopathic pulmonary fibrosis Polymyalgia rheumatica Social History Household Members: None Housing: Apartment Do you presently have visiting nurse or other home services: No (AWAITING wire rigger) Unable to assess alcohol history related to: Unknown Patient Tobacco Use Status: Never used Tobacco e-Cigarette/Vaping Use: Never Used service: No Physical Exam Vital Signs: Last Vital Signs Pulse 86 02/12/25 09:51 Resp 18 02/12/25 09:51 BP 103/78 02/12/25 09:51 Pulse Ox 97 02/12/25 09:51 Oxygen Delivery Method Room Air 02/12/25 09:51 Assessment & Plan Assessment & Plan (1) Sacroiliac joint dysfunction of both sides: Code(s): M53.3 - Sacrococcygeal disorders, not elsewhere classified Category: Medical Plan Bilateral diagnostic sacroiliac joint injection. Informed consent was thoroughly explained to the patient risks and benefits were explained. The patient came to the operating room and positioned prone on operating table with pillow under the abdomen. Time-out was performed delineating name and date of of the patient, side and site of the procedure. The lower back of the patient was prepped with ChloraPrep and draped with self adhesive sterile utility towels. C-arm was brought over the operating field and picture of the right SI joint was demonstrated on the screen. Tilting C-arm 20 degrees contralateral to the site of the joint to the left the most posterior portion of the joint was superimposed on were anterior portion of the joint. The superpositions point was chosen as the target of the injection. The projection of the target with skin was injected with small amount of mixture of lidocaine 2% and ropivacaine 0.5% one-to-one. After that 22 gauge 3-1/2 inch needle was inserted through the skin wheal and advanced to were the SI joint in tunnel vision fashion. When needle gently entered the capsule of the joint injection of the contrast was performed delineating arthrogram. After that injection of the treatment medicine containing ropivacaine 0.5% 5 mL was performed into the joint. Upon completion of the injection needle was removed and procedure was repeated on the left side in mirroring fashion. After that sterile Band-Aid was applied. The patient tolerated procedure well. Orders: Orders FL guidance in treatment room Today M53.3 - Sacrococcygeal disorders, not elsewhere classified Coding Level of Care Code Procedure Only Diagnoses Sacroiliac joint dysfunction of both sides M53.3
[2025-02-12 09:51] VITALS: BP 103/78; PULSE 86; RESP 18; O2SAT 97
== END 2025-02-12 09:51 | disposition home or self-care (01) ==
LOC: HO.PMCPRC 08:20
PROVIDERS: PCP Family Medicine; Visit Provider Anesthesiology
DX: M53.3 Sacrococcygeal disorders, not elsewhere classified (principal)
CPT/HCPCS: 27096

== ENCOUNTER 2025-02-15 10:33 | Outpatient (AMB) | payer OTHER, SELFPAY ==
--- OUTSIDE RECORDS SUMMARY | 2024-09-20 01:00 | XMS_ITS | Encounter Summary ---
Demographics Address [address] [facility] [place] [address] Home Phone Mobile Phone Email Address Preferred Language Israeli; Castilian Marital Status Single Yazidi Affiliation Unknown Race Other Race Ethnic Group or Author Organization [facility] Address [address] [place] [address] Phone Care Team Providers Care Caustics Loader Name Role Phone Lex Rich MD Primary Care Pr ovider Encounter Details Date Type Department Care Team (Late st Contact Info) Description 09/20/2024 Hospital Encounter [facility] [address] [place] [address] Jack Gibbons MD [address] [facility] [address] [place] [address] [email or web address] Social History Tobacco Use Types Packs/Day Years [...] (No Interpretation) (09/20/2024 12:00 AM EST) Narrative [facility] IMG INTERFACES - 02/11/2025 1:25 PM EDT This study is for PACS storage only and not for interpretation. us Jack Gibbons MD IMG OUTSIDE IMAGING W/OUT INTERPRETATION Final Result [facility] IMG INTERFACES documented in this encounter Visit Diagnoses Not on filedocumented in this encounter Care Teams Caustics Loader Relationship Specialty Start Date End Date Lex Rich MD PCP - General Family Medicine 02/20/24 documented as of this encounter Additional Source Comments The information contained in this document represents components of the legal health record. It is not the complete legal health record.[facility]
--- NOTE | 2025-02-15 10:37 | MHC.OFFVIS ---
Vital Signs 02/15/25 10:38 Weight 113 lb BP 110/69 Blood Pressure Location Lt brachial Position Sitting Respiration 18 Pulse 89 Pulse Source Pulse Oximeter Pulse Oximetry (%) 98 Oxygen Delivery Method Room Air Intake Visit Reasons: BILATERAL DIAGNOSTIC SIJ INJECTIONS Toppiece Cutter Required: Yes Toppiece Cutter Name: [id number] Allergies No Known Allergies Allergy (Verified 02/15/25 10:38) HPI Comments Details: The patient is a 59-year-old female presenting with lower back pain. The pain is exacerbated by walking and standing, and she reports significant discomfort in her lower back. In the office today for follow-up bilateral diagnostic sacroiliac joint injections performed 3 days ago. She reports 75-80% pain relief for at least 6 hours after the injections. Denies any untoward effects. The patient has a history of rheumatoid arthritis for which she has been taking prednisone for the past year. The use of prednisone has led to elevated blood glucose levels, although she does not have a history of diabetes. She is hesitant to continue with therapeutic injections or a sacroiliac joints at this time. She would not like to focus on her lower back. Endorses axial back pain without radiation down either lower extremity. - Onset: Pain in the lower back, exacerbated by walking and standing - Quality: Significant discomfort - Relief: Previous injections provided 75-80% relief - Affect: Pain impacts daily activities, causing significant discomfort - Analgesia: Previous injections provided temporary relief - Adverse Effects: Elevated blood glucose levels due to prednisone - Activities of Daily Living: Pain exacerbated by walking and standing [facility] Medical History (Updated 11/28/24 @ 16:02 by Kat Mays APRN, GLUE MILL OPERATOR) CAD (coronary artery disease) Idiopathic pulmonary fibrosis Polymyalgia rheumatica Social History Household Members: None Housing: Apartment Do you presently have visiting nurse or other home services: No (AWAITING billet driller) Unable to assess alcohol history related to: Unknown Patient Tobacco Use Status: Never used Tobacco e-Cigarette/Vaping Use: Never Used service: No Review of Systems Const Details: - Musculoskeletal: Reports lower back pain exacerbated by walking and standing - Endocrine: Reports elevated blood glucose levels due to prednisone use Physical Exam Exam Exam: General: awake, alert, oriented. Answers questions appropriately. Fully engaged in examination. Skin: warm, dry, intact HEENT: Normocephalic. Hearing intact. Cardiac: External chest normal in appearance. Respiratory: No cough, audible wheezing or stridor. Abdomen: without gross distension. MS: No obvious swelling or deformities. Able to transition from sit to stand unassisted. Antalgic gait Tenderness to midline lumbar vertebrae and lumbar paraspinal muscles Bilateral lower extremity strength 5/5 SLR negative bilaterally Facet loading positive Neurological: Oriented to person, place, time and situation. Thought process intact. Ambulates with the use of a walker Psychiatric: Appropriate mood and affect. Good judgment and insight. Vital Signs: Last Vital Signs Pulse 89 02/15/25 10:38 Resp 18 02/15/25 10:38 BP 110/69 02/15/25 10:38 Pulse Ox 98 02/15/25 10:38 Oxygen Delivery Method Room Air 02/15/25 10:38 Results Reviewed Results Reviewed: 12/03/24 XR/XR lumbar spine 4V min Endplate sclerosis and decreased intervertebral disc height at L5-S1. Mild multilevel endplate sclerosis and decreased intervertebral disc height lower thoracic spine. No acute cortical disruption. No gross malalignment. IMPRESSION: Mild multilevel thoracolumbar spondylosis. 09/23/2024 3 view, pelvis and left hip Findings: The bones are intact. No significant arthritic change. The soft tissues are unremarkable. IMPRESSION: No acute findings. Assessment & Plan Assessment & Plan (1) Sacroiliac joint dysfunction of both sides: Code(s): M53.3 - Sacrococcygeal disorders, not elsewhere classified Category: Medical (2) Myalgia: Code(s): M79.10 - Myalgia, unspecified site Category: Medical (3) Polymyalgia rheumatica: Code(s): M35.3 - Polymyalgia rheumatica Category: Medical (4) Lumbar spondylosis: Code(s): M47.816 - Spondylosis without myelopathy or radiculopathy, lumbar region Category: Medical (5) Chronic pain syndrome: Code(s): G89.4 - Chronic pain syndrome Category: Medical Plan Patient is 3 days status post bilateral diagnostic sacroiliac joint injections, she reported 75-80% pain relief for the hours after the injections. Today we discussed proceeding with therapeutic injections but patient wants to put this on hold at this time given her current use of prednisone for RA. She is concerned with potential for increasing blood sugar levels which could push her from prediabetic to diabetic. Today she was increasingly concerned about her nonradiating axial lower back pain consistent with lumbar spondylosis. We discussed options for treatment, she would like to proceed with fluoroscopy guided diagnostic L3-L4 DR L5 medial branch blocks with local anesthetic. If positive results plan to proceed with radiofrequency ablation. Patient was informed and verbally consented to the use of an ambient scribe for clinic note documentation during this visit. Patient Instructions: - Await insurance approval for the scheduled injections. - Continue with medications as prescribed - Follow up with completed pain diary after diagnostic injections Coding Level of Care Code Est Pt Level 3 (39041) Complex EM visit Add On G2211 Diagnoses Sacroiliac joint dysfunction of both sides M53.3 Myalgia M79.10 Polymyalgia rheumatica M35.3 Lumbar spondylosis M47.816 Chronic pain syndrome G89.4
[2025-02-15 10:38] VITALS: BP 110/69; PULSE 89; RESP 18; O2SAT 98
--- OUTSIDE RECORDS SUMMARY | 2025-02-15 10:44 | XMS_ITS | Encounter Summary ---
Author Organization [employer] Address [address] [facility] [address] [place] [address] Care Team Providers Care Tie Fastener Name Role Phone Unavailable Primary Care Provider Unavailabl e Reason for Visit * Reason Onset Date Comments New Patient 04/12/2023 Encounter Details Date Type Department Care Team (Late st Contact Info) Description 04/12/2023 Telephone [facility] [address] [place] [address] Oumar Chen MD [address] [place] [address] New Patient Social History Tobacco Use Types [...] PM EDT Tc to pt, to offer Metal Window Frame Maker appt, No answer answer, could not leave voicemail due to not being set up . documented in this encounter Plan of Treatment Not on file documented as of this encounter Visit Diagnoses Not on filedocumented in this encounter
--- OUTSIDE RECORDS SUMMARY | 2025-02-15 10:44 | XMS_ITS | Data Portability ---
Author Organization [facility], Main Office Address [address] [place] [address] Care Team Providers Care Livestock Yard Attendant Name Role Phone [facility] OTHER ANKIT CRAWLEY Primary [...] rosis of coronary artery without angina pectoris [id number] 03 Active 2024 Not Available [facility] 13:30:08 Fall Active 2024 Not Available [facility] 13:31:11 Anxiety disorder 514129926 Active 2024 Not Available [facility] 16:50:45 Depressive disorder 68071281 Active 2024 Not Available [facility] 5 11:58:52 Abnormal Active 2024 Not Available [facility] 5 12:00:40 Muscle weakness 10129620 Active 2024 Not Available [facility] 5 11:10:39 Incoordina tion 881914478 Active 2024 Not Available [facility] 5 11:10:40 Difficulty walking 479201085 Active 2024 Not Available [facility] 5 11:11:53 Polymyalgi a rheumatica 20852333 Active 2024 Not Available [facility] 5 13:29:03 History of fall 280217976 Active 2024 DANIELLE QUEZADA CNP [address], [place], [address] , [facility] 5 13:02:11 Coronary arterioscl erosis 44335201 Active 2024 DANIELLE QUEZADA CNP [address], [address], [place], [address] , [facility] 5 13:02:14 Idiopathic pulmonary fibrosis 998718308 Active 2024 DANIELLE QUEZADA CNP [address], [address], [place], [address] , [facility] 5 13:02:17 Insomnia 268809161 Active 2024 DANIELLE QUEZADA CNP [address], [address], [place], [address] , [facility] 5 13:02:19 Mixed anxiety and depressive disorder 497876422 Active 2024 DANIELLE QUEZADA CNP [address], [address], [place], [address] , [facility] 5 13:02:20 Hyperglyce deven 60839027 Active 2024 DANIELLE QUEZADA CNP [address], [address], [place], [address] , [place] - [facility] 5 13:02:24 Hyperlipid emia 03736681 Active 2024 DANIELLE QUEZADA, SPECIAL EFFECTS TECHNICIAN [address], [address], [place], [address] , [place] - [facility] 13:02:26 Problem Notes None recorded. Medical [...] Address Organization Details Last Updated DateTime 5 25782.6 3 g 96 /min 18 /min 98.2 [degF] 96 % 96 % 122/79 mm[Hg] DANIELLE QUEZADA, REINA [address], [address], [place], [address], [place] - [facility] 5 12:08:32 Date Recorded Body weight Body mass index (BMI) Body height Heart rate Respiratory rate Body temperature Oxygen saturation Oxygen saturation in Arterial blood by Pulse oximetry Systolic And Diastolic Provider Name and Address Organization Details Last Updated DateTime 5 44909 g 26.6 kg/m2 152.4 cm 104 /min 16 /min 97.7 [degF] 97 % 97 % 118/72 mm[Hg] Harper Rosales MD [address], [facility] [address], [place], [address], [facility] 5 15:05:33 Date Recorded Body height Heart rate Respiratory rate Body temperature Oxygen saturation Oxygen saturation in Arterial blood by Pulse oximetry Systolic And Diastolic Provider Name and Address Organization Details Last Updated DateTime 5 152.4 cm 96 /min 18 /min 98 [degF] 98 % 98 % 118/72 mm[Hg] YARA CABALLERO [address], [address], [place], [address], [facility] 5 19:41:13 Date Recorded Body height Body mass index (BMI) Body weight Heart rate Respiratory rate Body temperature Oxygen saturation Oxygen saturation in Arterial blood by Pulse oximetry Systolic And Diastolic Provider Name and Address Organization Details Last Updated DateTime 5 152.4 cm 26.5 kg/m2 79495.4 8 g 83 /min 18 /min 97.6 [degF] 95 % 95 % 126/69 mm[Hg] YARA CABALLERO [address], [facility] [address], [place], [address], [employer] [facility] 5 11:10:53 Social History Question Answer Notes LastModified by Organizat ion Details LastModified Time Tobacco Smoking Status Never Smoker DANIELLE QUEZADA CNP [address], [facility] [address], [place], [address], [facility] 09/27/2024 11:20:38 Do You Have An Advance Directive? Yes Information not available 10/02/2024 What Is Your Code Status? DNI No G-tube Information not available 09/27/2024 Where Do You Live? Apartment Lives Alone, 3rd Floor, No Elevator. Information not available 10/02/2024 Legal Guardian? No Informati on not available 10/02/2024 Do You Have A Medical Power Of Marine Habitat Resource Specialist? Yes Information not available 10/02/2024 What Was [...] Details Recorded Time Tdap 04/19/2023 completed Tarsha [facility] 09/27/2024 13:01:36 influenza, unspecified formulation 04/19/2023 completed Tarsha [facility] 09/27/2024 13:01:50 Past Encounters Encounter ID Performer Location Encounter Start Date Encounter Closed Date Diagnosis/Indication Diagnosis SNOMED-CT Code Diagnosis ICD10 Code Diagnosis Note [id number] REINA BROTHERS [address] [place] [address] 09/27/2024 10:45:11 10/02/2024 13:55:38 Polymyalgia rheumatica 93653318 M35.3 Flare up with bilateral lower extremity [...] s/s of flare up. History of fall 53358367 9 Z91.81 S/t PMR flare up and weakness.P T and OT for strength, gait training and safety.Mor se screen on 09/27/24, scored high risk. Idiopathic pulmonary fibrosis 970364713 J84.112 OFev 150 mg BID.Contin ue monitor. Insomnia 594620942 G47.0 0 Prazosin 1 mg qHS.Trazod one 100 mg qHS.Stable , continue monitor. Coronary arteriosclerosis 71247037 I25.10 Isosorbide mononitrat e 30 mg ER daily.Resu me aspirin 81 mg daily.VSS, continue to monitor. Mixed anxi ety and depressive disorder 192773854 F41.8 Buspirone 7.5 BID.Mood is stable, continue monitor.Ps y therapy PRN Hyperglycemia 47404795 R 73.9 Likely due to steroid.Gl ucose stable, will continue monitor. Hyperlipidemia 81548181 E78.5 Continue atorvastat in 40 mg daily. [id number] Harper Rosales MD [facility] [address] [place] [address] 10/02/2024 13:38:53 10/04/2024 11:04:53 Polymyalgia rheumatica 63470971 M35.3 Per inpt notes, not completely c/w [...] with rheum as planned. History of fall 76087290 9 Z91.81 PT/OT as above.Hali tor for safety. Coronary arteriosclerosis 78270049 I25.10 No recent sxs.Contin ue isosorbide mononitrat e 30 mg ER qd, ASA 81 mg qd and atorvastat in 40 mg qd.Monitor for cardio sxs.F/U with cardio as planned. Idiopathic pulmonary fibrosis 094441945 J84.112 Continue Ofev 150 mg BID.Monito r resp status.F/U with pulmonary as planned. Insomnia 544878358 G47.0 0 Meds as above,Hali tor sleep patterns. Mixed anxi ety and depressive disorder 778197095 F41.8 F32.89 Mood good today.Cont inue buspirone 7.5 BID, prazosin 1 mg qhs and trazadone 100 mg qhs.Mood is stable, continue monitor.Ps y therapy PRN Hyperglycemia 29388957 R 73.09 Glucose only mildly elevated here.With HgA1C of 6.4 inpt.Likel y due to steroids.C ontinue to encourage healthy eating.Mon itor as outpt. Hyperlipidemia 01994425 E78.49 Continue atorvastat in 40 mg qdMonitor labs as outpt. [id number] [place] [address] 10/05/2024 18:12:50 10/11/2024 15:02:23 Polymyalgia rheumatica 80051188 M35.3 continues with burning pain in finger joint and legswill increase gabapentin to 300 mg TIDCurrent ly is on prednisone taper.15 mg daily for 2 weeks, then wean 2.5 mg q 2 weekly.Praveen lofen 10 mg TID for pain.Yary nue monitor the pain and effectiven ess, [id number] YARA CABALLERO [address] [place] [address] 10/12/2024 10:28:50 10/16/2024 10:09:49 Polymyalgia rheumatica 77658457 M35.3 polymyalgi a rheumatica -Per inpt notes, [...] with PCP as planned History of fall 18640229 9 Z91.81 Monitor for safety. Coronary arteriosclerosis 51169731 I25.10 Continue isosorbide mononitrat e 30 mg ER qd, ASA 81 mg qd and atorvastat in 40 mg qd.Monitor for cardio sxs.F/U with cardio as planned. Idiopathic pulmonary fibrosis 802240300 J84.112 Continue Ofev 150 mg BID.Monito r resp status.F/U with pulmonary as planned. Mixed anxi ety and depressive disorder 161622486 F41.8 F32.89 Continue buspirone 7.5 BID, prazosin 1 mg qhs and trazadone 100 mg qhs. Insomnia 426567918 G47.0 0 Meds as above, Hyperglycemia 16088871 R 73.09 Glucose only mildly elevatedWi th HgA1C of 6.4 inpt.Likel y due to steroids.C ontinue to encourage healthy eating.Mon itor as outpt. Hyperlipidemia 31707159 E78.49 Continue atorvastat in 40 mg qdMonitor labs as outpt. Health Concerns Section Related Observation LastModified by Organization Detai ls LastModified Time None Recorded Concern Status LastModified by Organization Details LastModified Time None Recorded Advance Directives Directive Y: Payers Insurance Date Sequence Insurance Name Policy Number Policy Haywood Covered Member ID Haywood Member ID Guarantor Name 10/12/2024 1 [facility] - DOS ON OR AFTER 2022 - MEDICARE ADVANTAGE [place] (MEDICARE REPLACEMENT/ADV ANTAGE - PPO) Patricia Alexandre [id number] Patricia Alexandre Notes Date Note Type Note Provider Name and Address Organization Details Recorded Time 09/27/2024 text/html Patriica is 58 y/o a Greek-speaking female [place] [facility] PMH significant for Polymyalgia rheumatica, positive MADY, and RF, idiopathic pulmonary fibrosis, CAD, HLD and depression. Pt presented to [facility] [place] on 09/23/24 due to increase increased [...] on 09/27/24, scored high risk. DANIELLE QUEZADA, SPECIAL EFFECTS TECHNICIAN [address], [address], [place], [address], [employer] [facility] 09/27/2024 15:11:28 10/02/2024 text/html This is a 58 yo woman who is here for rehab after an acute hospitalization for a severe PMR flare causing inability to walk.She also has mod/severe ILD at baseline causing chronic SOB and asthenia. She presented to [place] [facility] [place] on 09/23 due to increasing leg pain and weakness.She had been inpt [place] [facility] [place] for similar sxs and was txed with solumedrol and then put on prednisone taper. 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 Her PMH includes PMR with + MADY and RF, idiopathic pulmonary fibrosis, CAD, elevated blood sugars when on prednisone (HgA1C 6.4), HLD and insomnia, anxiety/depression. Harper Rosales MD [address], [address], [place], [address], [facility] 10/02/2024 22:44:50 10/05/2024 text/html ROS as noted in the HPI This is a 58 yr old female [...] continues to be bothersome. YARA CABALLERO [address], [address], [place], [address], [employer] [facility] 10/10/2024 19:41:49 10/12/2024 text/html Discharge Summary Summarized from MD Tao This is a 58 yo woman with a PMH includes PMR with + MADY and RF, idiopathic pulmonary fibrosis, CAD, elevated blood sugars when on prednisone (HgA1C 6.4), HLD and insomnia, anxiety/depression. [facility] after an acute hospitalization for a severe PMR flare causing inability to walk.She also has mod/severe ILD at baseline causing chronic SOB and asthenia. She presented to [place] [facility] [place] on 09[place]23 due to increasing leg pain and weakness.She was admitted due to being unable to bear wt on legs due to pain.She was txed with solumedrol and then transitioned to po prednisone to do a prolonged taper. She had been inpt [place] [facility] [place] for similar sxs and was txed [...] medications and VNA with services. YARA CABALLERO [address] [place] [address], [address], [place], [address], [employer] 10/12/2024 11:43:33 OBGyn Episode No OBEpisode recorded.
--- OUTSIDE RECORDS SUMMARY | 2025-02-15 10:44 | XMS_ITS | Encounter Summary ---
Author Organization [facility] Address [address] [place] [address] Care Team Providers Care Fats And Oils Loader Name Role Phone Lex Rich MD Primary Care Pr ovider Encounter Details Date Type Department Care Team (Late Contact Info) Description 09/27/2024 Lab Requisition [facility] - Main Lab [address] [facility] [place] [address] Mainor Crawford MD [address] [place] [address], [address] Polymyalgia rheumatica (CMS/HCC V24) Social History [...] Upcoming Encounters Date Type Department Care Team ([facility] Contact Info) Description 02/22/2025 9:45 AM EDT Office Visit Adult Medicine [address] [address] Lex Rich MD [address] [place] [address] 03/13/2025 11:10 AM EDT Appointment Radiology Department - [place] [address] [place] [address] 04/04/2025 10:00 AM EDT Office Visit Orthopedic Surgery - [place] [address] [facility] [address] [place] [address] Diony Toledo DPM [address] [address] 05/10/2025 10:45 AM EDT Appointment Bone Density - [place] [address] [place] [address] 05/16/2025 11:45 AM EDT Office Visit Pulmonolgy - [place] [address] [facility] [address] [place] [address] Aysha Hernandez MD [address] [facility] [address] [place] [address] documented as of this encounter Procedures Procedure Name Priority Date/Time Associated Diagnosis Comments COMPLETE BLOOD COUNT Routine 09/27/2024 4:53 AM EST Polymyalgia rheumatica ([facility]/HCC) COMPREHENSIVE METABOLIC PANEL Routine 09/27/2024 4:53 AM EST Polymyalgia rheumatica ([facility]/HCC) documented in this encounter Results * (ABNORMAL) Comprehensive metabolic panel (09/27/2024 4:53 AM EST) Sodium 134 133 - 145 mmol/L LAB CHEMISTRY METHOD 09/27/2024 10:15 AM EST [facility] Potassium 3.8 3.5 - 5.5 mmol/L LAB CHEMISTRY METHOD 09/27/2024 10:15 AM EST [facility] Chloride 97 96 - 110 mmol/L LAB CHEMISTRY METHOD 09/27/2024 10:15 AM EST [facility] CO2 30 21 - 32 mmol/L LAB CHEMISTRY METHOD 09/27/2024 10:15 AM [facility] Anion Gap 7 3 - 11 LAB CHEMISTRY METHOD 09/27/2024 10:15 AM [facility] Glucose 108(H) 70 - 100 mg/dL LAB CHEMISTRY METHOD 09/27/2024 10:15 AM [facility] BUN 19 5 - 25 mg/dL LAB CHEMISTRY METHOD 09/27/2024 10:15 AM [facility] Creatinine 0.57 0.50 - 1.10 mg/dL LAB CHEMISTRY METHOD 09/27/2024 10:15 AM [facility] eGFR 106 >=60 mL/min/1. 73m2 LAB CHEMISTRY METHOD 09/27/2024 10:15 AM [facility] Comment:Calculation based on the Chronic Kidney Disease Epidemiology Collaboration (CKD-EPI) equation refit without adjustment for race. BUN/Creatinine Ratio 33.3 LAB CHEMISTRY METHOD 09/27/2024 10:15 AM [facility] Calcium 8.6 8.5 - 10.5 mg/dL LAB CHEMISTRY METHOD 09/27/2024 10:15 AM [facility] AST (SGOT) 35 10 - 42 unit/L LAB CHEMISTRY METHOD 09/27/2024 10:15 AM [facility] ALT (SGPT) 60 10 - 60 unit/L LAB CHEMISTRY METHOD 09/27/2024 10:15 AM [facility] Alkaline Phosphatase 100 42 - 121 unit/L LAB CHEMISTRY METHOD 09/27/2024 10:15 AM [facility] Total Protein 5.8(L) 6.0 - 8.0 g/dL LAB CHEMISTRY METHOD 09/27/2024 10:15 AM [facility] Albumin 2.3(L) 3.2 - 5.0 g/dL LAB CHEMISTRY METHOD 09/27/2024 10:15 AM [facility] Total Bilirubin 0.3 0.0 - 1.4 mg/dL LAB CHEMISTRY METHOD 09/27/2024 10:15 AM [facility] Blood Venous blood specimen / Unknown Venipuncture / Unknown 09/27/2024 4:53 AM EST 09/27/2024 8:45 AM EST us Mainor Crawford MD LAB BLOOD ORDERABLES Final Resul t [facility] [address] [place] [address], [place] [phone] * (ABNORMAL) Complete blood count (09/27/2024 4:53 AM EST) WBC 8.7 4.8 - 10.8 K/mcL LAB HEMETOLOGY METHOD 09/27/2024 9:33 AM [facility] RBC 3.60(L) 3.80 - 4.80 M/mcL LAB HEMETOLOGY METHOD 09/27/2024 9:33 AM [facility] Hemoglobin 10.5(L) 11.5 - 16.0 g/dL LAB HEMETOLOGY METHOD 09/27/2024 9:33 AM [facility] Hematocrit 33.3(L) 35.0 - 47.0 % LAB HEMETOLOGY METHOD 09/27/2024 9:33 AM [facility] MCV 92.2 79.0 - 98.0 FL LAB HEMETOLOGY METHOD 09/27/2024 9:33 AM [facility] MCH 29.1 27.0 - 32.0 pcg LAB HEMETOLOGY METHOD 09/27/2024 9:33 AM [facility] MCHC 31.5(L) 32.0 - 37.0 g/dL LAB HEMETOLOGY METHOD 09/27/2024 9:33 AM [facility] RDW 17.8(H) 11.0 - 15.0 % LAB HEMETOLOGY METHOD 09/27/2024 9:33 AM EST [facility] Platelets 397 130 - 400 K/mcL LAB HEMETOLOGY METHOD 09/27/2024 9:33 AM EST [facility] MPV 9.2 7.0 - 11.0 FL LAB HEMETOLOGY METHOD 09/27/2024 9:33 AM EST [facility] NRBC 0.0 <1.0 % LAB HEMETOLOGY METHOD 09/27/2024 9:33 AM EST [facility] NRBC Absolute 0.00 <0.10 K/mcL LAB HEMETOLOGY METHOD 09/27/2024 9:33 AM [facility] Blood Venous blood specimen / Unknown Venipuncture / Unknown 09/27/2024 4:53 AM EST 09/27/2024 8:45 AM EST us Mainor Crawford MD LAB BLOOD ORDERABLES Final Resul t [facility] [address] [place] [address], documented in this encounter Visit Diagnoses Diagnosis Polymyalgia rheumatica (CMS/HCC V24) Polymyalgia rheumatica Encounter for screening mammogram for breast cancer documented in this encounter Care Teams Fats And Oils Loader Relationship Specialty Start Date End Date Lex Rich MD [address] [place] [address] PCP - General Internal Medicine 05/24/24 documented as of this encounter
== END 2025-02-15 11:05 | disposition home or self-care (01) ==
LOC: HO.PMC 10:33
PROVIDERS: PCP Family Medicine; Visit Provider Registered Nurse Emergency
DX: M53.3 Sacrococcygeal disorders, not elsewhere classified (principal); M79.10 Myalgia, unspecified site; M35.3 Polymyalgia rheumatica; M47.816 Spondylosis without myelopathy or radiculopathy, lumbar region; G89.4 Chronic pain syndrome
CPT/HCPCS: 99213; G2211

== ENCOUNTER → 2025-02-15 10:33 | Outpatient (BNVA) | payer OTHER, SELFPAY | PROVIDERS: PCP Family Medicine; Visit Provider Registered Nurse Emergency | DX: M53.3 Sacrococcygeal disorders, not elsewhere classified (principal); M79.10 Myalgia, unspecified site; M35.3 Polymyalgia rheumatica; M47.815 Spondylosis without myelopathy or radiculopathy, thoracolumbar region; G89.4 Chronic pain syndrome; R73.09 Other abnormal glucose; Z79.52 Long term (current) use of systemic steroids | CPT/HCPCS: 99212 ==

== ENCOUNTER 2025-05-23 09:36 | Outpatient (AMB) | payer OTHER, SELFPAY ==
--- NOTE | 2025-05-23 09:40 | MHC.OFFVIS ---
Intake Visit Reasons: Polyneuropathy Allergies No Known Allergies Allergy (Verified 02/15/25 10:38) Medication List - Last Reconciled 05/23/25 by Mejia Dotson MD atorvastatin 40 mg PO DAILY baclofen 10 mg PO TID buspirone 7.5 mg PO BID cholecalciferol (vitamin D3) 25 mcg PO DAILY cyanocobalamin (vitamin B-12) 1,000 mcg PO DAILY gabapentin 300 mg PO BID isosorbide mononitrate ER 30 mg PO DAILY nintedanib (Ofev) 150 mg PO BID prazosin 1 mg PO BEDTIME prednisone 10 mg PO DAILY trazodone 100 mg PO BEDTIME HPI Comments Details: The patient is a 59-year-old female presenting with neuropathy symptoms affecting both her legs. These have been ongoing for over a year, beginning after she was prescribed prednisone for pulmonary fibrosis?a medication that has led to transient elevated blood sugar levels. Symptoms include cramps, heavy legs, and pain in both legs, impacting her sleep and quality of life. Her history reveals a diagnosis of connective tissue-related pulmonary fibrosis and polymyalgia rheumatica, with current management involving a reduced prednisone dose. Despite high blood sugar during prednisone therapy, she does not have a standing diagnosis of diabetes. Her severe neuropathy-related symptoms prompted specialist consultation, underlining the year-long impact and progression, which have been manageable but unresolved by existing treatments, including gabapentin. 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 Generalized pain and fatigue. HEENT:?No headache, vision changes, hearing loss, nasal congestion, sore throat. Neurological:? Bilateral leg aching and burning pain. Psychiatric:? In pain in depressed. Endocrine:?No heat/cold intolerance, polydipsia, polyuria, or hair/skin changes. Hematologic/Lymphatic:?No easy bruising, bleeding, or lymphadenopathy. Integumentary (Skin):?No rash, lesions, itching, or color changes. ? Physical Exam Neuro Other: Mental Status: Alert and oriented to person, place, and time. Normal attention. Normal spontaneous speech, fluency, and comprehension. Affect is flexor. Cranial Nerves: CN II: Visual wray full to confrontation, visual acuity intact. CN III, IV, : Pupils equal, round, reactive to light and accommodation. Extraocular movements are normal. CN V: Facial sensation is normal. CN VII: Facial movements symmetrical. CN VIII: Hearing intact to bedside conversation is normal. CN IX, X: Palate elevates symmetrically. CN XI: Shoulder shrug and head turn symmetrical. CN XII: Tongue midline without atrophy or fasciculations. Motor: Deep tendon reflexes are absent. Sensory: Her legs are quite sensitive to touch. Gait: Slow and cautious with a cane. Extrapyramidal: Full facial expressions and blinking. No rigidity. Movements are appropriate with no tremor or abnormality. Speech: Normal; no dysarthria or tremor. Assessment & Plan Assessment & Plan (1) Neuropathic pain: Code(s): M79.2 - Neuralgia and neuritis, unspecified Category: Medical (2) Peripheral neuropathy: Code(s): G62.9 - Polyneuropathy, unspecified Category: Medical Plan Impression recommendations: 59 years old woman with history of connective tissue related pulmonary fibrosis being treated with prednisone and diagnosis of polymyalgia rheumatica. She was here with complaints of bilateral leg and foot aching and pain and burning sensation. This has affected her for about a year or more. Her sugar has been high on prednisone but prior to that she was not known to be diabetic. Apparently, she had an EMG nerve conduction study in [facility], which I could not find on [facility] computer records. She has been taking gabapentin 300 mg twice a day, which has not helped. Her examination revealed loss of reflexes in quite bit of sensitivity in her legs. This was suggestive chronic painful neuropathy. For classification and grading, 1 leg EMG nerve conduction study was requested. For pain control, I would change gabapentin to pregabalin to see if that would work better. If not, alternate medicines can be tried. Orders: Orders NE electromyogram (EMG) Today G62.9 - Polyneuropathy, unspecified, M79.2 - Neuralgia and neuritis, unspecified NE nerve conduction velocity Today G62.9 - Polyneuropathy, unspecified, M79.2 - Neuralgia and neuritis, unspecified Medications: New pregabalin 100 mg PO BID 60 caps 0RF Discontinued gabapentin Discontinued Reason: Doctor's Order 300 mg PO BID 60 caps 3RF Coding Level of Care Code New Pt Level 4 (11311) Diagnoses Neuropathic pain M79.2 Peripheral neuropathy G62.9
--- OUTSIDE RECORDS SUMMARY | 2025-05-23 11:08 | XMS_ITS | Encounter Summary ---
Author Organization [facility] Address [address] [place] [address] Care Team Providers Care Welder [employer]astic Name Role Phone Lex Rich MD Primary Care Pr ovider Encounter Details Date Type Department Care Team (Late Contact Info) Description 09/19/2024 Billing Patient Not Present Adult Medicine [address] [phone] Shannon Wymanbel MD Social History Tobacco Use Types Packs/Day Years [...] Department Care Team (Late Contact Info) Description 05/31/2025 11:00 AM EST Office Visit Adult Medicine [address] [phone] Lex Rich MD [address] [place] [address] 07/15/2025 9:00 AM EST Office Visit Pulmonology - [address] [place] [phone] Aysha Hernandez MD [address] [place] [phone] 08/02/2025 1:00 PM EST Consult [facility] [place] [facility] [place] [address] [facility] [address] [place] [phone] Arpita Willis PA [address] [place] [phone] 08/06/2025 10:15 AM EST Office Visit Orthopedic Surgery - [place] [address] [facility] [address] [place] [phone] Diony Toledo DPM [address] [place] [phone] documented as of this encounter Visit Diagnoses Not on filedocumented in this encounter Care Teams Wel[employer] Relationship Specialty Start Date End Date Lex Rich MD [address] [place] [phone] PCP - General Internal Medicine 05/24/24 documented as of this encounter
--- OUTSIDE RECORDS SUMMARY | 2025-05-23 11:08 | XMS_ITS | Clinical Summary ---
Author Organization [facility] Address [address] [place], [place] [phone] Phone Care Team Providers Care Ad Trafficker Name Role Phone Lex Rich MD Primary Care Pr ovider Allergies No known active allergies Medications prazosin (MINIPRESS) 1 mg capsule Take 1 capsule (1 mg total) by mouth at bedtime. 024 Active busPIRone (BUSPAR) 7.5 mg tablet Take 1 tablet (7.5 mg total) by mouth 2 (two) times a day. 024 Active aspirin 81 mg chewable tablet Chew 1 tablet (81 mg total) 1 (one) time each day. Active nintedanib (Ofev) 150 mg capsule Take 1 capsule (150 mg total) by mouth every 12 (twelve) hours. 60 capsule 11 025 2025 Active cholecalciferol (VITAMIN D-3) 50 mcg (2,000 unit) tabletIndications :Osteopenia, unspecified location Take 1 tablet (2,000 Units total) by mouth 1 (one) time each day. 90 tablet 3 025 2025 Active albuterol HFA (PROAIR HFA ; PROVENTIL HFA ; VENTOLIN HFA) 90 mcg/actuation inhaler Inhale 2 puffs by mouth every 4 (four) hours if needed for wheezing. Inhale 2 Puffs into the lungs every 6 hours as needed for Cough, Wheezing or Shortness of Breath for up to 30 days 6.7 g 11 025 2025 Active lidocaine (LIDODERM) 5 % patchIndications: Primary osteoarthritis of right hip,Chronic midline low back pain without sciatica APPLY 1 PATCH TO SKIN EVERY DAY REMOVE AND DISCARD PATCH WITHIN 12 HOURS OR DIRECTED BY MD 90 patch 1 Active mirtazapine (REMERON) 7.5 mg tablet Take 1 tablet (7.5 mg total) by mouth at bedtime. Active rosuvastatin (CRESTOR) 10 mg tabletIndications :Mixed hyperlipidemia Take 1 tablet (10 mg total) by mouth 1 (one) time each day. 90 each 1 025 2025 Active hydroxychloroquin e (PLAQUENIL) 200 mg tablet Take 1 tablet (200 mg total) by mouth 1 (one) time each day. Active baclofen (LIORESAL) 10 mg tabletIndications :Polymyalgia rheumatica ([facility] V24) Take 1 tablet (10 mg total) by mouth 3 (three) times a day. 270 each 025 2024 Active albuterol 2.5 mg /3 mL (0.083 %) nebulizer solutionIndicatio ns:ILD (interstitial lung disease) ([facility] V24, [facility] V28) Take 3 mL (2.5 mg total) by nebulization every 6 (six) hours if needed for wheezing. 300 mL 3 025 2025 Active mycophenolate (CELLCEPT) 500 mg tablet Take 2 tablets (1,000 mg total) by mouth 2 (two) times a day. 120 each 5 025 2025 Active predniSONE (DELTASONE) 2.5 mg tablet Take 1 tablet (2.5 mg total) by mouth 1 (one) time each day. 60 each 025 2024 Active gabapentin (NEURONTIN) 300 mg capsuleIndication s:Type 2 diabetes mellitus with diabetic polyneuropathy, without long-term current use of insulin ([facility] V24, [facility] V28) TAKE 1 CAPSULE BY MOUTH THREE TIMES A DAY 270 capsule Active gabapentin (NEURONTIN) 300 mg capsuleIndication s:Type 2 diabetes mellitus with diabetic polyneuropathy, without long-term current use of insulin ([facility] V24, [facility] V28) Take 1 capsule (300 mg total) by mouth 3 (three) times a day. 270 each 025 2024 Discontinued Active Problems Problem Noted Date Diagnosed Date Hepatic steatosis 02/25/2025 H. pylori infection 02/25/2025 Peripheral polyneuropathy 01/11/2025 Assessment & Plan (02/22/2025 12:02 PM EDT): Will increase gabapentin to 300 mg 3 times daily for better control of her neuropathy and pain. She was provided with a copy of her previously placed referral in December to neurology to call to make an appointment Type 2 diabetes mellitus wit hout complication, without long-term current use of insulin ([facility] V24, [facility] V28) 10/21/2024 Assessment & Plan [...] Polymyalgia rheumatica ([facility] V24) 10/18/2024 Assessment & Plan [...] incisional pain. Directed to follow-up with her banquet waiter/waitress Dr. Hernandez in regards to her pulmonary fibrosis. Will follow-up with the thoracic surgical department moving forward on a as needed basis and to contact the thoracic surgery department should she have any further questions or concerns in the future. Assessment & Plan (02/22/2025 12:02 PM EDT): Continue pulmonology follow-up both locally and in [place]. She knew continue prednisone and Ofev as prescribed by her banquet waiter/waitress. Hyperlipidemia 06/27/2023 Assessment & Plan (02/22/2025 12:02 PM EDT): Continue crestor Orders: rosuvastatin (CRESTOR) 10 mg tablet; Take 1 tablet (10 mg total) by mouth 1 (one) time each day. Assessment & Plan (11/22/2024 1:27 PM EDT): [...] Future Comprehensive metabolic panel; Future Insomnia 06/24/2023 Assessment & Plan (02/22/2025 12:02 PM EDT): Continue mirtazapine as prescribed by her psychiatrist Overweight (BMI 25.0-29.9) 06/24/2023 Anxiety and depression 02/17/2023 Assessment & Plan (02/22/2025 12:02 PM EDT): Continue BuSpar and prazosin as prescribed by her psychiatrist Localized osteoporosis witho ut current pathological fracture 02/17/2023 Assessment & Plan (02/22/2025 12:02 PM EDT): Continue vitamin D daily Scheduled for DXA scan in April Assessment & Plan (11/22/2024 1:27 PM EDT): [...] Encounters Date Type Department Care Team Description 05/16/2025 11:45 AM EDT Office Visit Pulmonology [facility] [address] [place] [phone] Aysha Hernandez MD ILD (interstitial lung disease) ([facility] V24, [facility] V28) (Primary Dx); Connective tissue disease ([facility] V24) 05/16/2025 Results Follow-Up Adult Medicine [address] [phone] Christianne Vidales PA 05/10/2025 10:28 AM EDT - 05/10/2025 11:59 PM EDT Hospital Encounter Bone Density - [address] [phone] Osteopenia, unspecified location Discharge Disposition: Home or Self Care 04/11/2025 2:00 PM EDT [facility] [address] [phone] Aysha Hernandez MD ILD (interstitial lung disease) ([facility] V24, [facility] V28) (Primary Dx) 04/04/2025 10:00 AM EDT Office Visit Orthopedic Surgery [facility] [address] [place] [phone] Diony Toledo DPM Rheumatoid arthritis involving both feet with positive rheumatoid factor ([facility] V24, [facility] V28) (Primary Dx); Follow-up exam; Diabetic mononeuropathy simplex ([facility] V24, [facility] V28); Neuritis 03/19/2025 8:45 AM EDT Office Visit Pulmonology [facility] [address] [place] [phone] Aysha Hernandez MD ILD (interstitial lung disease) ([facility] V24, [facility] V28) (Primary Dx); Pulmonary fibrosis ([facility] [place], [facility] V28) 03/13/2025 10:41 AM EDT - 03/13/2025 11:59 PM EDT Hospital Encounter Radiology Department - [address] [phone] Encounter for screening mammogram for breast cancer Discharge Disposition: Home or Self Care 03/12/2025 2:43 PM EDT - 03/12/2025 11:59 PM EDT Hospital Encounter Radiology Department - [address] [phone] Pressure in head Discharge Disposition: Home or Self Care 02/26/2025 Lab Requisition [facility] - Main Lab [address] [place] [address] [place] [phone] Susanne Cohen MD Pulmonary fibrosis, unspecified ([facility] [place], [facility] V28) 02/25/2025 8:37 AM EDT - 02/25/2025 11:59 PM EDT Hospital Encounter Radiology Department - [address] [phone] Right upper quadrant abdominal pain Discharge Disposition: Home or Self Care 02/25/2025 Telephone Adult Medicine [address] [phone] Ava Cronin RN 02/22/2025 10:00 AM EDT Office Visit Adult Medicine [address] [phone] Lex Rich MD Type 2 diabetes mellitus with diabetic polyneuropathy, without long-term current use of insulin ([facility] [place], [facility] V28) (Primary Dx); Peripheral polyneuropathy; Mixed hyperlipidemia; ILD (interstitial lung disease) ([facility] [place], [facility] V28); Osteopenia, unspecified location; Primary insomnia; Anxiety and depression; Right upper quadrant abdominal pain; Heartburn; Pressure in head from Last 3 Months Immunizations Immunization Administration Dates Next Due Influenza Quadravalent, MDCK [...] [place] [facility] [place] INDICATIONS CHEST [...] ed Within the last 3 months, ho carol many times did you visit the emergency [...] your loved ones. For example, early childhood or elderly care for an older adult? [...] Date Recorded What is your living situation? Unrecognized valu e 10/18/2024 Comments No Sex and Gender Information Value Date Recorded Sex Assigned at Female 08/30/2024 4:13 PM EST Legal Sex Female 8:19 PM EST Gender Identity Female 08/30/2024 4:13 PM EST Sexual Orientation Straight 08/30/2024 4: 13 PM EST Obstetrics History Para Term AB IAB SAB Ectopic Multiple Livin g Live Births 1 1 1 1 Date Outcome GA Total Labor Labor/2nd/3rd Weight Sex Type Anes PTL Brittny A1 A5 Name Clin Term Last Filed Vital Signs Vital Sign Reading Time Taken Comments Blood Pressure 108/56 05/16/2025 11:58 AM EDT Pulse 110 05/16/2025 11:58 AM EDT Temperature 36.5 C (97.7 F) 05/16/2025 11:58 AM EDT Respiratory Rate 16 05/16/2025 11:58 AM EDT Oxygen Saturation 97% 05/16/2025 11:58 AM EDT Inhaled Oxygen Concentration - - Weight 57.8 kg (127 lb 6.4 oz) 04/11/2025 2:07 P M EDT Height 152.4 cm (5') 04/11/2025 2:07 PM EDT Body Mass Index 24.88 04/11/2025 2:07 PM EDT Plan of Treatment Upcoming Encounters Date Type Department Care Team (Late st Contact Info) Description 05/31/2025 11:00 AM EST Office Visit Adult Medicine [facility] [address] [place] [phone] Lex Rich MD [address] [place] [phone] 07/15/2025 9:00 AM EST Office Visit Pulmonology [facility] [address] [place] [phone] Aysha Hernandez MD [address] [place] [phone] 08/02/2025 1:00 PM EST Consult [facility] for [facility] [address] [place] [phone] Arpita Willis, PA [address] [place] [phone] 08/06/2025 10:15 AM EST Office Visit Orthopedic Surgery [facility] [address] [place] [phone] Diony Toledo, DPLynn [address] [place] [phone] Health Maintenance Due Date Last Done Comments COVID-19 Vaccine (#1) 10/30/1971 Diabetes: Annual Foot Exam 1976 Diabetes: Annual Retina Eye Exam 1976 Zoster Vaccines (1 of 2) 1985 RSV Immunization Adult Patients (1 - Risk 50-74 years 1-dose series) 2016 HIV Screening 08/18/2023 Medicare Annual Wellness Visit 08/18/2023 Colorectal Cancer Screening: Stool Based Tests (FOBT/FIT) 10/17/2024 10/18/2023 Diabetes: Blood Sugar Control Test (HGBA1C) 08/28/2025 02/25/2025, 10/18/2024, 07/12/2024, Additional history exists Social Influencers of Health Screening 10/18/2025 10/18/2024 Diabetes: Annual Urine Albumin-Creatinine Ratio (uACR) 02/25/2026 02/25/2025 Diabetes: Annual GFR (Glomerular Filtration Rate) 02/25/2026 02/25/2025, 09/27/2024, 07/12/2024, Additional history exists Hypertension/CHF/CAD Annual BMP Blood Test 02/25/2026 02/25/2025, 09/27/2024, 07/12/2024, Additional history exists Breast Cancer Screening 03/13/2027 03/13/20, 03/05/2024, 03/05/2024, Additional history exists Cholesterol Screening (Lipid Panel) 02/25/2030 02/25/2025, 01/04/2024, 01/04/2024 DTaP,Tdap,and Td Vaccines (2 - Td or Tdap) 04/19/2033 04/19/2023 Osteoporosis Screening (Bone Density Screening) 05/10/2035 05/10/2025 Influenza Vaccine Discontinued 04/19/2023 Colorectal Cancer Screening: Colonoscopy Discontinued 09/21/2023 Hepatitis C Screening Completed 07/12/2024, 023 Depression Screening Completed 10/18/2024 Pneumococcal Vaccine: 50+ Years Completed 11/22/2024 Cervical Cancer Screening: Pap Smear [...] Procedure Name Priority Date/Time Associated Diagnosis Comments BD BONE DENSITY DXA AXIAL SKELETON Routine 05/10/2025 11:10 AM EDT Osteopenia, unspecified location CBC WITH AUTO DIFFERENTIAL Routine 04/11/2025 2:47 PM EDT ILD (interstitial lung disease) (CMS/HCC V24, CMS/HCC V28) CBC AND DIFFERENTIAL Routine 04/11/2025 2:47 PM EDT ILD (interstitial lung disease) (CMS/HCC V24, CMS/HCC V28) XR FOOT 3+ VIEWS BILAT Routine 04/04/2025 10:26 AM EDT Follow-up exam INJECTION TENDON OR LIGAMENT Routine 04/04/2025 10:00 AM EDT Rheumatoid arthritis involving both feet with positive rheumatoid factor (CMS/HCC V24, CMS/[facility] V28) INJECTION TENDON OR LIGAMENT Routine 04/04/2025 10:00 AM EDT Rheumatoid arthritis involving both feet with positive rheumatoid factor (CMS/HCC V24, CMS/HCC V28) MG MAMMO DIGITAL SCREENING W NEMESIO BILAT Routine 03/13/2025 10:57 AM EDT Encounter for screening mammogram for breast cancer MR BRAIN WO AND W CONTRAST Routine 03/12/2025 3:45 PM EDT Pressure in head HISTORICAL SURGICAL PATHOLOGY CASE Routine 02/26/2025 1:00 PM EDT Pulmonary fibrosis, unspecified (CMS/HCC V24, CMS/HCC V28) US ABDOMEN LIMITED STAT 02/25/2025 9: 36 AM EDT Right upper quadrant abdominal pain MICROALBUMIN CREATININE URINE RATIO Routine 02/25/2025 9:14 AM EDT Type 2 diabetes mellitus with diabetic polyneuropathy, without long-term current use of insulin (CMS/HCC V24, CMS/HCC V28) HEMOGLOBIN A1C Routine 02/25/2025 9:14 AM EDT Type 2 diabetes mellitus with diabetic polyneuropathy, without long-term current use of insulin ([facility] V24, [facility] V28) LIPID PANEL WITH REFLEX TO DIRECT LDL Routine 02/25/2025 9:14 AM EDT Mixed hyperlipidemia COMPREHENSIVE METABOLIC PANEL Routine 02/25/2025 9:14 AM EDT Mixed hyperlipidemia VITAMIN D 25 HYDROXY Routine 02/25/2025 9:14 AM EDT Osteopenia, unspecified location HELICOBACTER PYLORI BREATH TEST Routine 02/25/2025 9:14 AM EDT Heartburn AMYLASE Routine 02/25/2025 9:14 AM EDT Right upper quadrant abdominal pain Heartburn LIPASE Routine 02/25/2025 9:14 AM EDT Right upper quadrant abdominal pain Heartburn HEPATITIS C ANTIBODY Routine 07/12/2024 10:05 AM EST Encounter for hepatitis C screening test for low risk patient HM COLONOSCOPY Routine 09/21/2023 from Last 3 Months or Most Recently Relevant to Health Maintenance Results * BD Bone Density DXA Axial Skeleton (05/10/2025 11:10 AM EDT) Anatomical Region Laterality Modality Wrist, Hip, L-spine Bone Densito metry 05/13/2025 12:4 9 PM EDT Impressions 05/13/2025 12:50 PM EDT Impression: This patient is considered to have osteoporosis by WHO criteria. The [facility] Department of Internal Medicine recommends using National Osteoporosis Foundation (NOF) guidelines in treatment decisions related to osteoporosis. NOF guidelines suggest considering treatment for postmenopausal women and men aged 50 or older presenting with the following: History of hip or vertebral fracture. T-score = -2.5 (DXA) at the femoral neck, total hip, or spine, after appropriate evaluation to exclude secondary causes. Low bone mass (T-score between -1.0 and -2.5 at the femoral neck or spine) AND a 10-year probability of a hip fracture = 3% OR a 10-year probability of a major osteoporosis-related fracture = 20% based on the [place]-adapted WHO algorithm Please note that all treatment decisions require clinical judgment and consideration of individual patient factors, including patient preferences, co-morbidities, previous drug use, risk factors not captured in the FRAX model (e.g., frailty, falls, vitamin D deficiency, increased bone turnover, interval significant decline in bone density) and possible under- or over-estimation of fracture risk by FRAX. Optional alternative screening schedule based on juany Iraheta., [facility] August 12, 2011 for patients with osteopenia (based on hip BMD T-score) is as follows: * advanced osteopenia (T scores -2.00 to -2.49), BMD testing every year * moderate osteopenia (T scores -1.50 to -1.99), BMD testing every 5 years mild osteopenia or normal BMD (T scores -1.50 and higher), BMD testing every 15 years -------- FINAL REPORT -------- Dictated By: Maya Garcia Dictated Date: 05/13/2025 12:49 ET Assigned Physician: Maya Garcia Reviewed and Electronically Signed By: Maya Garcia Signed Date: 05/13/2025 12:50 ET Workstation ID: [id number] Transcribed By: Self Edit Transcribed Date: 05/13/2025 12:49 ET Narrative 05/13/2025 12:50 PM EDT BONE DENSITY (DEXA) Lumbar Spine T-score is -2.7. (SD relative to 20-29 y/o adult) Z-score is -1.4. (SD relative to age matched peers) This is considered osteoporosis by WHO criteria. Left Hip T-score is -1.9. Z-score is -0.8. This is considered osteopenia by WHO criteria. Lateral view of the spine demonstrates vertebral heights to be maintained. Procedure Note Maya Garcia MD - 05/13/2025 BONE DENSITY (DEXA) Lumbar Spine T-score is -2.7. (SD relative to 20-29 y/o adult) Z-score is -1.4. (SD relative to age matched peers) This is considered osteoporosis by WHO criteria. Left Hip T-score is -1.9. Z-score is -0.8. This is considered osteopenia by WHO criteria. Lateral view of the spine demonstrates vertebral heights to bemaintained. IMPRESSION: Impression: This patient is considered to have osteoporosis by WHO criteria. The [facility] Department of Internal Medicine recommendsusing National Osteoporosis Foundation (NOF) guidelines in treatmentdecisions related to osteoporosis. NOF guidelines suggest consideringtreatment for postmenopausal women and men aged 50 or older presentingwith the following: History of hip or vertebral fracture. T-score = -2.5 (DXA) at the femoral neck, total hip, or spine, afterappropriate evaluation to exclude secondary causes. Low bone mass (T-score between -1.0 and -2.5 at the femoral neck or spine)AND a 10-year probability of a hip fracture = 3% OR a 10-year probabilityof a major osteoporosis-related fracture = 20% based on the [place]-adapted WHOalgorithm Please note that all treatment decisions require clinical judgment andconsideration of individual patient factors, including patientpreferences, co-morbidities, previous drug use, risk factors not capturedin the FRAX model (e.g., frailty, falls, vitamin D deficiency, increasedbone turnover, interval significant decline in bone density) and possibleunder- or over-estimation of fracture risk by FRAX. Optional alternative screening schedule based on juany Iraheta., [facility] for patients with osteopenia (based on hip BMD T-score)is as follows: * advanced osteopenia (T scores -2.00 to -2.49), BMD testing every year * moderate osteopenia (T scores -1.50 to -1.99), BMD testing every 5years mild osteopenia or normal BMD (T scores -1.50 and higher), BMD testingevery 15 years -------- FINAL REPORT -------- Dictated By: Maya Garcia Dictated Date: 05/13/2025 12:49 ET Assigned Physician: Maya Garcia Reviewed and Electronically Signed By: Maya Garcia Signed Date: 05/13/2025 12:50 ET Workstation ID: [id number] Transcribed By: Self Edit Transcribed Date: 05/13/2025 12:49 ET us Lex Rich MD IMG DXA PROCEDUR ES Final Result * (ABNORMAL) CBC auto differential (04/11/2025 2:47 PM EDT) Pathologist [facility] WBC 9.5 4.8 - 10.8 K/mcL LAB HEMETOLOGY METHOD 04/11/2025 6:27 PM EDT [facility] RBC 4.30 3.80 - 4.80 M/mcL LAB HEMETOLOGY METHOD 04/11/2025 6:27 PM EDT [facility] Hemoglobin 12.8 11.5 - 16.0 g/dL LAB HEMETOLOGY METHOD 04/11/2025 6:27 PM EDT [facility] Hematocrit 40.2 35.0 - 47.0 % LAB HEMETOLOGY METHOD 04/11/2025 6:27 PM EDT [facility] MCV 93.9 79.0 - 98.0 FL LAB HEMETOLOGY METHOD 04/11/2025 6:27 PM EDT [facility] MCH 29.9 27.0 - 32.0 pcg LAB HEMETOLOGY METHOD 04/11/2025 6:27 PM EDT [facility] MCHC 31.8(L) 32.0 - 37.0 g/dL LAB HEMETOLOGY METHOD 04/11/2025 6:27 PM EDT [facility] RDW 14.8 11.0 - 15.0 % LAB HEMETOLOGY METHOD 04/11/2025 6:27 PM EDT [facility] Platelets 526(H) 130 - 400 K/mcL LAB HEMETOLOGY METHOD 04/11/2025 6:27 PM EDT [facility] MPV 9.5 7.0 - 11.0 FL LAB HEMETOLOGY METHOD 04/11/2025 6:27 PM EDT [facility] NRBC 0.0 <1.0 % LAB HEMETOLOGY [facility] NR[facility] Absolute 0.00 <0.10 K/mcL LAB HEMETOLOGY METHOD 04/11/2025 6:27 PM [facility] Neutrophils Relative 68.7 % LAB HEMETOLOGY METHOD 04/11/2025 6:27 PM [facility] Lymphocytes Relative 25.8 % LAB HEMETOLOGY METHOD 04/11/2025 6:27 PM [facility] Monocytes Relative 3.9 % LAB HEMETOLOGY METHOD 04/11/2025 6:27 PM [facility] Eosinophils Relative 0.1 % LAB HEMETOLOGY METHOD 04/11/2025 6:27 PM [facility] Basophils Relative 0.9 % LAB HEMETOLOGY METHOD 04/11/2025 6:27 PM [facility] Immature Granulocytes Relative 0.6 % LAB HEMETOLOGY METHOD 04/11/2025 6:27 PM [facility] Neutrophils Absolute 6.55 1.50 - 7.00 K/mcL LAB HEMETOLOGY METHOD 04/11/2025 6:27 PM [facility] Lymphocytes Absolute 2.46 1.00 - 5.00 K/mcL LAB HEMETOLOGY METHOD 04/11/2025 6:27 PM [facility] Monocytes Absolute 0.37 0.20 - 1.00 K/mcL LAB HEMETOLOGY METHOD 04/11/2025 6:27 PM [facility] Eosinophils Absolute 0.01 0.00 - 0.50 K/mcL LAB HEMETOLOGY METHOD 04/11/2025 6:27 PM [facility] Basophils Absolute 0.09 0.00 - 0.20 K/mcL LAB HEMETOLOGY METHOD 04/11/2025 6:27 PM EDT [facility] Immature Granulocytes Absolute 0.06(H) 0.00 - 0.03 K/[facility] LAB HEMETOLOGY METHOD 04/11/2025 6:27 PM EDT [facility] Blood Venous blood specimen / Unknown Venipuncture / Unknown 04/11/2025 2:47 PM EDT 04/11/2025 2:47 PM EDT Aysha Hernandez MD LAB BLOOD ORDERABLES Final Resul t [facility]) [facility] [address] [place] [address], [place] [phone] * XR Foot 3+ Views bilat (04/04/2025 10:26 AM EDT) Anatomical Region Laterality Modality Lower Extremities, Foot Bilateral Computed Radiography Narrative 04/04/2025 12:22 PM EDT Right foot 3 views No fracture. No radiopaque foreign joint spaces Arthritis mild moderate midtarsal joint Foot position rectus Normal talus navicular position normal calcaneal inclination normal symes line talus navicular joint to calcaneal cuboid joint Left foot 3 views No fracture. No radiopaque foreign joint spaces Arthritis mild moderate midtarsal joint Foot position rectus Normal talus navicular position normal calcaneal inclination normal symes line talus navicular joint to calcaneal cuboid joint Diony Toledo DPM IMG XR PROCEDURES Final R esult * Injection tendon or ligament (04/04/2025 10:00 AM EDT) Diony Garza DPM - 04/04/2025 10:00 AM EDT Diony Toledo DPM 04/04/2025 12:24 PM Injection tendon or ligament Indications: pain Details: 25 G needle Medications: 0.5 mL lidocaine (PF) 1 %; 20 mg triamcinolone acetonide 40 mg/mL Informed Consent: Site: Foot ligament tendon Diony Toledo DPM IN CLINIC/BEDSIDE ORDERAB LES Final Result * Injection tendon or ligament (04/04/2025 10:00 AM EDT) Diony Garza DPM - 04/04/2025 10:00 AM EDT Diony Toledo DPM 04/04/2025 12:24 PM Injection tendon or ligament Indications: pain Details: 25 G needle Medications: 0.5 mL lidocaine (PF) 1 %; 20 mg triamcinolone acetonide 40 mg/mL Informed Consent: Site: Foot ligament tendon Diony Toledo DPM IN CLINIC/BEDSIDE ORDERAB LES Final Result * MG Mammo Digital Screening w Nemesio bilat (03/13/2025 10:57 AM EDT) Anatomical Region Laterality Modality Breast Bilateral Mammography 03/14/2025 11:2 3 AM EDT Impressions 03/14/2025 11:27 AM EDT Benign. BI-RADS CATEGORY: 1 - NEGATIVE RECOMMENDATION: Screening bilateral mammogram is recommended in 1 year. Mammo Location: [facility], [address] [place] [address], [facility], . -------- FINAL REPORT -------- Dictated By: Maya Garcia Dictated Date: 03/14/2025 11:23 ET Assigned Physician: Maya Garcia Reviewed and Electronically Signed By: Maya Garcia Signed Date: 03/14/2025 11:27 ET Workstation ID: [id number] Transcribed By: Self Edit Transcribed Date: 03/14/2025 11:23 ET Narrative 03/14/2025 11:27 AM EDT CLINICAL: 59 years old, Female, routine annual exam. COMPARISON: Mammograms dating back to 05/26/2022 with most recent of 03/05/2024. TECHNIQUE: Bilateral MLO and CC views were obtained digitally with 3-D mammogram (digital breast tomosynthesis). Computer-aided detection was utilized in evaluation of this exam (CAD). FINDINGS: There is no evidence of suspicious mass or architectural distortion. No worrisome calcifications are evident. There has been no significant change from prior exam(s). BREAST DENSITY: C - The breasts are heterogeneously dense which may obscure small masses. Procedure Note Maya Garcia MD - 03/14/2025 CLINICAL: 59 years old, Female, routine annual exam. COMPARISON: Mammograms dating back to 05/26/2022 with most recent of03/05/2024. TECHNIQUE: Bilateral MLO and CC views were obtained digitally with 3-Dmammogram (digital breast tomosynthesis). Computer-aided detection wasutilized in evaluation of this exam (CAD). FINDINGS: There is no evidence of suspicious mass or architectural distortion. Noworrisome calcifications are evident. There has been no significantchange from prior exam(s). BREAST DENSITY: C - The breasts are heterogeneously dense which mayobscure small masses. IMPRESSION: Benign. BI-RADS CATEGORY: 1 - NEGATIVE RECOMMENDATION: Screening bilateral mammogram is recommended in 1 year. Mammo Location: [facility], [address] [place] [address], [id number], . -------- FINAL REPORT -------- Dictated By: Maya Garcia Dictated Date: 03/14/2025 11:23 ET Assigned Physician: Maya Garcia Reviewed and Electronically Signed By: Maya Garcia Signed Date: 03/14/2025 11:27 ET Workstation ID: [id number] Transcribed By: Self Edit Transcribed Date: 03/14/2025 11:23 ET Lex Rich MD IMG BI PROCEDURE S Final Result * MR Brain wo and w Contrast (03/12/2025 3:45 PM EDT) Anatomical Region Laterality Modality Head and Neck Magnetic Resonan ce 03/12/2025 5:33 PM EDT Impressions 03/12/2025 5:45 PM EDT Impression: 1. Unremarkable MRI of the brain. 2. No abnormal intracranial enhancement -------- FINAL REPORT -------- Dictated By: Yisel Nunez Dictated Date: 03/12/2025 17:33 ET Assigned Physician: Yisel Nunez Reviewed and Electronically Signed By: Yisel Nunez Signed Date: 03/12/2025 17:45 ET Workstation ID: [id number] Transcribed By: Self Edit Transcribed Date: 03/12/2025 17:33 ET Narrative 03/12/2025 5:45 PM EDT MRI BRAIN WITH AND WITHOUT CONTRAST Clinical Statement: Dizziness, non-specific headache Comparison: None Technique: Multiplanar, multisequence MR images of the brain were obtained prior to and following the uneventful intravenous administration of 12 mL of Dotarem Findings: There is no evidence of diffusion restriction. No intracranial hemorrhage. Minimal white matter hyperintensities within the periventricular and supraventricular region consistent with microvascular ischemic changes. The craniocervical junction is normal. The ventricular system is normal in size and morphology. The basilar cisterns are normal. There is no evidence of abnormal intracranial enhancement. The orbits and globes are within normal limits. Mild mucosal thickening within the paranasal sinuses. Procedure Note Yisel Nunez MD - 03/12/2025 MRI BRAIN WITH AND WITHOUT CONTRAST Clinical Statement: Dizziness, non-specific headache Comparison: None Technique: Multiplanar, multisequence MR images of the brain wereobtained prior to and following the uneventful intravenous administrationof 12 mL of Dotarem Findings: There is no evidence of diffusion restriction. No intracranialhemorrhage. Minimal white matter hyperintensities within theperiventricular and supraventricular region consistent with microvascularischemic changes. The craniocervical junction is normal. The ventricularsystem is normal in size and morphology. The basilar cisterns are normal.There is no evidence of abnormal intracranial enhancement. The orbitsand globes are within normal limits. Mild mucosal thickening within theparanasal sinuses. IMPRESSION: Impression: 1. Unremarkable MRI of the brain. 2. No abnormal intracranial enhancement -------- FINAL REPORT -------- Dictated By: Yisel Nunez Dictated Date: 03/12/2025 17:33 ET Assigned Physician: Yisel Nunez Reviewed and Electronically Signed By: Yisel Nunez Signed Date: 03/12/2025 17:45 ET Workstation ID: [id number] Transcribed By: Self Edit Transcribed Date: 03/12/2025 17:33 ET us Lex Rich MD IMG MRI PROCEDUR ES Final Result * Historical Pathology Case (02/26/2025 1:00 PM EDT) Final Diagnosis This case was created to document slides being sent to [facility] from a historical case accessioned in our prior laboratory information system. The report is available upon request. No additional diagnosis is rendered by this institution at this time. 05/08/2025 11:19 AM EDT EXTERNAL LAB (NON-INTERFAC ED) at 1119 EDT Clinical Information Historical case created for requests for materials from outside institutions. 05/08/2025 11:19 AM EDT [facility] Gross Description A. Lung, Right Upper Lobe, : [id number] Whole case (5) sent JS/KK 05/08/2025 11:19 AM EDT [facility] Disclaimer Unless otherwise specified, all tissue is 10% NB formalin fixed and paraffin embedded. 05/08/2025 11:19 AM EDT [facility] Tissue Structure of upper lobe of right lung / Unknown 02/26/2025 1:00 PM EDT 02/26/2025 1:00 PM EDT us Susanne Cohen MD LAB PATHOLOGY ORDERABLES Final R esult EXTERNAL LAB (NON-INTERFACED) [facility]) [facility] [address] [place] [address], [place] [phone] * US Abdomen Limited (02/25/2025 9:36 AM EDT) Anatomical Region Laterality Modality Body Ultrasound 02/25/2025 10:0 3 AM EDT Impressions 02/25/2025 10:05 AM EDT Hepatic steatosis. -------- FINAL REPORT -------- Dictated By: Maya Garcia Dictated Date: 02/25/2025 10:03 ET Assigned Physician: Maya Garcia Reviewed and Electronically Signed By: aMya Garcia Signed Date: 02/25/2025 10:05 ET Workstation ID: [id number] Transcribed By: Self Edit Transcribed Date: 02/25/2025 10:03 ET Narrative 02/25/2025 10:05 AM EDT ABDOMINAL ULTRASOUND-LIMITED History: Right upper quadrant pain. Comparison: CT chest 09/13/2023. FINDINGS: There is no evidence of cholelithiasis. The common bile duct is not dilated, measuring 3 mm. The gallbladder wall is not thickened. No pericholecystic fluid is seen. No ascites are seen. Evaluation of the pancreas is limited by overlying bowel gas. The liver measures 12.4 cm in length and demonstrates increased echotexture. No focal lesions are seen in the liver and there is no evidence of intrahepatic ductal dilation. Normal hepatopedal flow is seen in the main portal vein. No evidence of hydronephrosis, mass, or calculus was seen in the right kidney. The right kidney measures 8.8 cm in greatest length. Procedure Note Maya Garcia MD - 02/25/2025 ABDOMINAL ULTRASOUND-LIMITED History: Right upper quadrant pain. Comparison: CT chest 09/13/2023. FINDINGS: There is no evidence of cholelithiasis. The common bile duct isnot dilated, measuring 3 mm. The gallbladder wall is not thickened. Nopericholecystic fluid is seen. No ascites are seen. Evaluation of the pancreas is limited by overlying bowel gas. The liver measures 12.4 cm in length and demonstrates increasedechotexture. No focal lesions are seen in the liver and there is noevidence of intrahepatic ductal dilation. Normal hepatopedal flow is seenin the main portal vein. No evidence of hydronephrosis, mass, or calculus was seen in the rightkidney. The right kidney measures 8.8 cm in greatest length. IMPRESSION: Hepatic steatosis. -------- FINAL REPORT -------- Dictated By: Maya Garcia Dictated Date: 02/25/2025 10:03 ET Assigned Physician: Maya Garcia Reviewed and Electronically Signed By: Maya Garcia Signed Date: 02/25/2025 10:05 ET Workstation ID: [id number] Transcribed By: Self Edit Transcribed Date: 02/25/2025 10:03 ET us Lex Rich MD [facility] US PROCEDURE S Final Result * Lipid panel with reflex to direct LDL (02/25/2025 9:14 AM EDT) Cholesterol 181 0 - 200 mg/dL LAB CHEMISTRY METHOD 02/25/2025 2:45 PM EDT [facility] Triglycerides 61 0 - 150 mg/dL LAB CHEMISTRY METHOD 02/25/2025 2:45 PM EDT [facility] HDL 72 >=40 mg/dL LAB CHEMISTRY METHOD 02/25/2025 2:45 PM EDT [facility] LDL Calculated 97 0 - 100 mg/dL LAB CHEMISTRY METHOD 02/25/2025 2:45 PM EDT [facility] VLDL Cholesterol Tamir 12.2 mg/dL LAB CHEMISTRY METHOD 02/25/2025 2:45 PM EDT [facility] Non HDL Chol. (LDL+VLDL) 109 <145 mg/dL LAB CHEMISTRY METHOD 02/25/2025 2:45 PM EDT [facility] Chol/HDL Ratio 2.5 0.0 - 4.4 LAB CHEMISTRY METHOD 02/25/2025 2:45 PM EDT [facility] Blood Venous blood specimen / Unknown Venipuncture / Unknown 02/25/2025 9:14 AM EDT 02/25/2025 9:14 AM EDT us Lex Rich MD LAB BLOOD ORDERA BLES Final Result [facility] [address] [place] [address], [place] [phone] * Microalbumin creatinine urine ratio (02/25/2025 9:14 AM EDT) Creatinine, Urine 43.0 mg/dL LAB CHEMISTRY METHOD 02/25/2025 11:30 AM EDT [facility] Microalb, Ur <5.0 0.0 - 29.0 mg/L LAB CHEMISTRY METHOD 02/25/2025 11:30 AM EDT [facility] Microalb/Creat Ratio <12 <30 mg/g creat LAB CHEMISTRY METHOD 02/25/2025 11:30 AM EDT [facility] Urine Urine specimen obtained by clean catch procedure / Unknown Non-blood Collection / Unknown 02/25/2025 9:14 AM EDT 02/25/2025 9:14 AM EDT Lex Rich MD LAB URINE ORDERA BLES Final Result Performing Organization Address City/[facility]/ZIP Co de Phone Number [facility] [address] [place] [address], [place] [phone] * (ABNORMAL) Helicobacter pylori breath test (02/25/2025 9:14 AM EDT) H Pylori Breath Test Positive( A) Negative LAB CHEMISTRY METHOD 02/25/2025 10:43 AM EDT [facility] Breath Oral cavity structure / Unknown Non-blood Collection / Unknown 02/25/2025 9:14 AM EDT 02/25/2025 9:14 AM EDT Lex Rich MD LAB BODY FLUIDS AND STOOLS ORDERABLES Final Result [facility] [address] [place] [address], * Vitamin D 25 hydroxy (02/25/2025 9:14 AM EDT) [facility] Vit D, 25-Hydroxy 37.7 30.0 - 80.0 ng/mL LAB CHEMISTRY METHOD 02/25/2025 3:28 PM EDT [facility] Blood Venous blood specimen / Unknown Venipuncture / Unknown 02/25/2025 9:14 AM EDT 02/25/2025 9:14 AM EDT Lex Rich MD LAB BLOOD ORDERA BLES Final Result [facility] [address] [place] [address], * Lipase (02/25/2025 9:14 AM EDT) [facility] Lipase 57 13 - 75 unit/L LAB CHEMISTRY METHOD 02/25/2025 2:25 PM EDT [facility] Blood Venous blood specimen / Unknown Venipuncture / Unknown 02/25/2025 9:14 AM EDT 02/25/2025 9:14 AM EDT Lex Rich MD LAB BLOOD ORDERA BLES Final Result [facility] [address] [place] [address], [place] [phone] * Hemoglobin A1c (02/25/2025 9:14 AM EDT) [facility] Hemoglobin A1C 5.9 <6.5 % LAB CHEMISTRY METHOD 02/25/2025 12:22 PM EDT [facility] Mean Bld Glu Estim. 123 mg/dL LAB CHEMISTRY METHOD 02/25/2025 12:22 PM EDT [facility] Blood Venous blood specimen / Unknown Venipuncture / Unknown 02/25/2025 9:14 AM EDT 02/25/2025 9:14 AM EDT Lex Rich MD LAB BLOOD ORDERA BLES Final Result Performing Organization Address [facility]/ZIP Co de Phone Number [facility] [address] [place] [address], [place] [phone] * Amylase (02/25/2025 9:14 AM EDT) Pathologist [facility] Amylase 84 25 - 115 unit/L LAB CHEMISTRY METHOD 02/25/2025 1:48 PM EDT [facility] Blood Venous blood specimen / Unknown Venipuncture / Unknown 02/25/2025 9:14 AM EDT 02/25/2025 9:14 AM EDT Lex Rich MD LAB BLOOD ORDERA BLES Final Result Performing Organization Address [facility]/ZIP Co de Phone Number [facility] [address] [place] [address], [place] [phone] * (ABNORMAL) Comprehensive metabolic panel (02/25/2025 9:14 AM EDT) Pathologist [facility] Sodium 137 133 - 145 mmol/L LAB CHEMISTRY METHOD 02/25/2025 2:45 PM EDT [facility] Potassium 5.0 3.5 - 5.5 mmol/L LAB CHEMISTRY METHOD 02/25/2025 2:45 PM EDT [facility] Chloride 104 96 - 110 mmol/L LAB CHEMISTRY METHOD 02/25/2025 2:45 PM EDT [facility] CO2 28 21 - 32 mmol/L LAB CHEMISTRY METHOD 02/25/2025 2:45 PM EDT [facility] Anion Gap 5 3 - 11 LAB CHEMISTRY METHOD 02/25/2025 2:45 PM [facility] Glucose 120(H) 70 - 100 mg/dL LAB CHEMISTRY METHOD 02/25/2025 2:45 PM [facility] BUN 12 5 - 25 mg/dL LAB CHEMISTRY METHOD 02/25/2025 2:45 PM [facility] Creatinine 0.72 0.50 - 1.10 mg/dL LAB CHEMISTRY METHOD 02/25/2025 2:45 PM [facility] eGFR 97 >=60 mL/min/1. 73m2 LAB CHEMISTRY METHOD 02/25/2025 2:45 PM [facility] Comment:Calculation based on the Chronic Kidney Disease Epidemiology Collaboration (CKD-EPI) equation refit without adjustment for race. BUN/Creatinine Ratio 16.7 LAB CHEMISTRY METHOD 02/25/2025 2:45 PM [facility] Calcium 9.6 8.5 - 10.5 mg/dL LAB CHEMISTRY METHOD 02/25/2025 2:45 PM [facility] AST (SGOT) 18 10 - 42 unit/L LAB CHEMISTRY METHOD 02/25/2025 2:45 PM [facility] ALT (SGPT) 37 10 - 60 unit/L LAB CHEMISTRY METHOD 02/25/2025 2:45 PM [facility] Alkaline Phosphatase 98 42 - 121 unit/L LAB CHEMISTRY METHOD 02/25/2025 2:45 PM [facility] Total Protein 7.1 6.0 - 8.0 g/dL LAB CHEMISTRY METHOD 02/25/2025 2:45 PM [facility] Albumin 3.2 3.2 - 5.0 g/dL LAB CHEMISTRY METHOD 02/25/2025 2:45 PM [facility] Total Bilirubin 0.3 0.0 - 1.4 mg/dL LAB CHEMISTRY METHOD 02/25/2025 2:45 PM [facility] Blood Venous blood specimen / Unknown Venipuncture / Unknown 02/25/2025 9:14 AM EDT 02/25/2025 9:14 AM EDT Lex Rich MD LAB BLOOD ORDERA BLES Final Result Performing Organization Address City/[facility]/ZIP Co de Phone Number [facility] [address] [place] [address], [place] [phone] * Hepatitis C antibody (07/12/2024 10:05 AM EST) [facility] Hepatitis C Antibody Negative Negative LAB CHEMISTRY METHOD 07/12/2024 1:27 PM EST [facility] Blood Venous blood specimen / Unknown Venipuncture / Unknown 07/12/2024 10:05 AM EST 07/12/2024 10:05 AM EST Lex Rich MD LAB BLOOD ORDERA BLES Final Result Performing Organization Address City/[facility]/ZIP Co de Phone Number [facility] [address] [place] [address], [place] [phone] * Colonoscopy (09/21/2023) Pathologist [facility] Colonoscopy no interpreta tion,abstr acted Anatomical Region Laterality Modality Other Historical Provider HEALTH MAINTENANCE Final Result from Last 3 Months or Most Recently Relevant to Health Maintenance Insurance [facility] MEDICARE Member Subscriber Plan / Payer (Ef fective 2022-Present) Name:MEHRAN ALEXANDRE Relation to Subscriber:Self Name:Mehran Alexandre Payer ID:[id number] Group ID:[id number] Type:Not on file Address: [facility] [address] [id number] Care Teams Ad Trafficker Relationship Specialty Start Date End Date Lex Rich MD [address] [place] [phone] PCP - General Internal Medicine 05/24/24
--- OUTSIDE RECORDS SUMMARY | 2025-05-23 11:08 | XMS_ITS | Encounter Summary ---
Author Organization [facility] Address [address] [place] [address] Care Team Providers Care Timber Supervisor Name Role Phone Lex Rich MD Primary Care Pr ovider Encounter Details Date Type Department Care Team (Late Contact Info) Description 10/07/2024 Lab Requisition [facility] - Main Lab [address] [facility] [place] [address] Mainor Crawford MD [address] [place] [address], [phone] Polymyalgia rheumatica (CMS/HCC V24) Social History [...] Upcoming Encounters Date Type Department Care Team ([facility] Contact Info) Description 05/31/2025 11:00 AM EST Office Visit Adult Medicine [address] [phone] Lex Rich MD [address] [place] [phone] 07/15/2025 9:00 AM EST Office Visit Pulmonology - [place] [address] [facility] [address] [place] [phone] Aysha Hernandez MD [address] [place] [phone] 08/02/2025 1:00 PM EST Consult [facility] - [place] [address] [facility] [address] [place] [phone] Arpita Willis PA [address] [place] [phone] 08/06/2025 10:15 AM EST Office Visit Orthopedic Surgery - [place] [address] [facility] [address] [place] [phone] Diony Toledo DPM [address] [place] [phone] documented as of this encounter Procedures Procedure Name Priority Date/Time Associated Diagnosis Comments PREALBUMIN Routine 10/08/2024 5:24 AM EDT Polymyalgia rheumatica (CMS/HCC) documented in this encounter Results * Prealbumin (10/08/2024 5:24 AM EDT) Prealbumin 27 18 - 45 mg/dL LAB CHEMISTRY METHOD 10/08/2024 11:51 AM EDT [facility] Blood Venous blood specimen / Unknown Venipuncture / Unknown 10/08/2024 5:24 AM EDT 10/08/2024 10:33 AM EDT us Mainor Crawford MD LAB BLOOD ORDERABLES Final Resul t [facility] ([facility] [address] [place], [place] [address] [phone] documented in this encounter Visit Diagnoses Diagnosis Polymyalgia rheumatica (CMS/[facility] V24) Polymyalgia rheumatica documented in this encounter Care Teams Timber Supervisor Relationship Specialty Start Date End Date Lex Rich MD [address] [place] [phone] PCP - General Internal Medicine 05/24/24 documented as of this encounter
--- OUTSIDE RECORDS SUMMARY | 2025-05-23 11:08 | XMS_ITS | Encounter Summary ---
Author Organization [facility] Address [address] [place] [address] Care Team Providers Care Manager Country Name Role Phone Lex Rich MD Primary Care Pr ovider Reason for Referral * Consultation (Routine) - Authorized Specialty Diagnoses / Procedures Referred By Contac t Referred To Contact Endocrinology Diagnoses Localized osteoporosis without current pathological fracture Lex Rich MD [address] [place] [address] Phone: tel: fax: [address] Phone: tel: fax: Referral ID Status Reason Start Date Expiration Date Visits Requested Visits Authorized [id number] Authorized Specialty Services Required 05/17/2026 1 1 Encounter Details Date Type Department Care Team (Late st Contact Info) Description 05/16/2025 Results Follow-Up Adult Medicine [address] [phone] Christianne Vidales PA [address] [place] [phone] Social History Tobacco Use Types Packs/Day Years [...] for your loved ones. 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 [...] 11:00 AM EST Office Visit Adult Medicine [facility] [address] [place], [place] [phone] Lex Rich MD [address] [place], [place] 07/15/2025 9:00 AM EST Office Visit Pulmonology [facility] 175 [facility] [address] [place] [phone] Aysha Hernandez MD [address] [place] [phone] 08/02/2025 1:00 PM EST Consult [facility] for [facility] 175 [facility] [address] [place] [phone] Arpita Willis PA [address] [place] [phone] 08/06/2025 10:15 AM EST Office Visit Orthopedic Surgery [facility] [address] [facility] [address] [place] [phone] Diony Toledo DPM [address] [place] [phone] Scheduled Referrals Name Type Priority Associated Diagnoses Order Schedule Ambulatory referral to Endocrinology Outpatient Referral Routine Localized osteoporosis without current pathological fracture 1 Occurrences starting 05/17/2025 until 05/17/2026 documented as of this encounter Visit Diagnoses Diagnosis Localized osteoporosis without current pathological fracture- Primary documented in this encounter Additional Health Concerns Assessment Noted Time PHQ-9 Depression Total Score: 0 10/19/19 25 8:17 AM EDT documented as of this encounter Care Teams Manager Country Relationship Specialty Start Date End Date Lex Rich MD [address] [place] [phone] PCP - General Internal Medicine 05/24/24 documented as of this encounter
--- OUTSIDE RECORDS SUMMARY | 2025-05-23 11:08 | XMS_ITS | Data Portability ---
Author Organization [facility], Main Office Address [address] [place] [address] Care Team Providers Care Parcel Post Carrier Name Role Phone [facility] OTHER ANKIT CRAWLEY Primary [...] rosis of coronary artery without angina pectoris [id number] 03 Active 2024 Not Available [facility] 13:30:08 Fall Active 2024 Not Available [facility] 13:31:11 Anxiety disorder 449346647 Active 2024 Not Available [facility] 16:50:45 Depressive disorder 62344023 Active 2024 Not Available [facility] 5 11:58:52 Abnormal Active 2024 Not Available [facility] 5 12:00:40 Muscle weakness 39340259 Active 2024 Not Available [facility] 5 11:10:39 Incoordina tion 643908380 Active 2024 Not Available [facility] 5 11:10:40 Difficulty walking 285500771 Active 2024 Not Available [facility] 5 11:11:53 Polymyalgi a rheumatica 11035722 Active 2024 Not Available [facility] 5 13:29:03 History of fall 918677261 Active 2024 DANIELLE QUEZADA CNP [address], [place], [address] , [facility] 5 13:02:11 Coronary arterioscl erosis 19295887 Active 2024 DANIELLE QUEZADA CNP [address], [address], [place], [address] , [facility] 5 13:02:14 Idiopathic pulmonary fibrosis 681237515 Active 2024 DANIELLE QUEZADA CNP [address], [address], [place], [address] , [facility] 5 13:02:17 Insomnia 378218989 Active 2024 DANIELLE QUEZADA CNP [address], [address], [place], [address] , [facility] 5 13:02:19 Mixed anxiety and depressive disorder 353469522 Active 2024 DANIELLE QUEZADA CNP [address], [place], [address] , [facility] 5 13:02:20 Hyperglyce deven 11324014 Active 2024 DANIELLE QUEZADA CNP [address], [place], [address] , [place] - [facility] 5 13:02:24 Hyperlipid emia 75032072 Active 2024 DANIELLE QUEZADA, JET SKI MECHANIC [address], [address], [place], [address] , [place] [facility] 13:02:26 Problem Notes None recorded. Medical [...] Address Organization Details Last Updated DateTime 5 74734.6 3 g 96 /min 18 /min 98.2 [degF] 96 % 96 % 122/79 mm[Hg] DANIELLE QUEZADA, REINA [address], [address], [place], [address], [place] - [facility] 5 12:08:32 Date Recorded Body weight Body mass index (BMI) Body height Heart rate Respiratory rate Body temperature Oxygen saturation Oxygen saturation in Arterial blood by Pulse oximetry Systolic And Diastolic Provider Name and Address Organization Details Last Updated DateTime 5 17855 g 26.6 kg/m2 152.4 cm 104 /min 16 /min 97.7 [degF] 97 % 97 % 118/72 mm[Hg] Harper Rosales MD [address], [facility] [address], [place], [address], [facility] 5 15:05:33 Date Recorded Body height Heart rate Respiratory rate Body temperature Oxygen saturation Oxygen saturation in Arterial blood by Pulse oximetry Systolic And Diastolic Provider Name and Address Organization Details Last Updated DateTime 5 152.4 cm 96 /min 18 /min 98 [degF] 98 % 98 % 118/72 mm[Hg] YARA CABALLERO [address], [address], [place], [address], [facility] 5 19:41:13 Date Recorded Body height Body mass index (BMI) Body weight Heart rate Respiratory rate Body temperature Oxygen saturation Oxygen saturation in Arterial blood by Pulse oximetry Systolic And Diastolic Provider Name and Address Organization Details Last Updated DateTime 5 152.4 cm 26.5 kg/m2 74809.4 8 g 83 /min 18 /min 97.6 [degF] 95 % 95 % 126/69 mm[Hg] YARA CABALLERO [address], [facility] [address], [place], [address], [employer] [facility] 5 11:10:53 Social History Question Answer Notes LastModified by Organizat ion Details LastModified Time Tobacco Smoking Status Never Smoker DANIELLE QUEZADA CNP [address], [facility] [address], [place], [address], [facility] 09/27/2024 11:20:38 Do You Have An Advance Directive? Yes Information not available 10/02/2024 What Is Your Code Status? DNI No G-tube Information not available 09/27/2024 Where Do You Live? Apartment Lives Alone, 3rd Floor, No Elevator. Information not available 10/02/2024 Legal Guardian? No Informati on not available 10/02/2024 Do You Have A Medical Power Of Telecom Field Technician? Yes Information not available 10/02/2024 What Was [...] Recorded Time Tdap 04/19/2023 completed Tarsha Segovia [facility] 09/27/2024 13:01:36 influenza, unspecified formulation 04/19/2023 completed Tarshalaure Segovia [facility] 09/27/2024 13:01:50 Past Encounters Encounter ID Performer Location Encounter Start Date Encounter Closed Date Diagnosis/Indication Diagnosis SNOMED-CT Code Diagnosis ICD10 Code Diagnosis IMO Codes Diagnosis Note [id number] DANIELLE QUEZADA CNP [facility] [address] [place] [address] 09/27/2024 10:45:11 10/02/2024 13:55:38 Polymyalgia rheumatica 57234672 M35.3 Flare up with bilateral lower extremity [...] s/s of flare up. History of fall 55629836 9 Z91.81 S/t PMR flare up and weakness.P T and OT for strength, gait training and safety.Mor se screen on 09/27/24, scored high risk. Idiopathic pulmonary fibrosis 866936695 J84.112 OFev 150 mg BID.Contin ue monitor. Insomnia 600973850 G47.0 0 Prazosin 1 mg qHS.Trazod one 100 mg qHS.Stable , continue monitor. Coronary arteriosclerosis 62111099 I25.10 Isosorbide mononitrat e 30 mg ER daily.Resu me aspirin 81 mg daily.VSS, continue to monitor. Mixed anxi ety and depressive disorder 720030367 F41.8 Buspirone 7.5 BID.Mood is stable, continue monitor.Ps y therapy PRN Hyperglycemia 19343696 R 73.9 Likely due to steroid.Gl ucose stable, will continue monitor. Hyperlipidemia 40164246 E78.5 Continue atorvastat in 40 mg daily. [id number] Harper Rosales MD [facility] [address] [place] [address] 10/02/2024 13:38:53 10/04/2024 11:04:53 Polymyalgia rheumatica 69558107 M35.3 Per inpt notes, not completely c/w [...] with rheum as planned. History of fall 23811150 9 Z91.81 PT/OT as above.Hali tor for safety. Coronary arteriosclerosis 64440422 I25.10 No recent sxs.Contin ue isosorbide mononitrat e 30 mg ER qd, ASA 81 mg qd and atorvastat in 40 mg qd.Monitor for cardio sxs.F/U with cardio as planned. Idiopathic pulmonary fibrosis 472965371 J84.112 Continue Ofev 150 mg BID.Monito r resp status.F/U with pulmonary as planned. Insomnia 572537743 G47.0 0 Meds as above,Hali tor sleep patterns. Mixed anxi ety and depressive disorder 320027793 F41.8 F32.89 Mood good today.Cont inue buspirone 7.5 BID, prazosin 1 mg qhs and trazadone 100 mg qhs.Mood is stable, continue monitor.Ps y therapy PRN Hyperglycemia 37421946 R 73.09 Glucose only mildly elevated here.With HgA1C of 6.4 inpt.Likel y due to steroids.C ontinue to encourage healthy eating.Mon itor as outpt. Hyperlipidemia 52072150 E78.49 Continue atorvastat in 40 mg qdMonitor labs as outpt. [id number] [place] [address] 10/05/2024 18:12:50 10/11/2024 15:02:23 Polymyalgia rheumatica 95650804 M35.3 continues with burning pain in finger joint and legswill increase gabapentin to 300 mg TIDCurrent ly is on prednisone taper.15 mg daily for 2 weeks, then wean 2.5 mg q 2 weekly.Praveen lofen 10 mg TID for pain.Yary nue monitor the pain and effectiven ess, [id number] YARA CABALLERO [address] [place] [address] 10/12/2024 10:28:50 10/16/2024 10:09:49 Polymyalgia rheumatica 32693082 M35.3 polymyalgi a rheumatica -Per inpt notes, [...] with PCP as planned History of fall 25158274 9 Z91.81 Monitor for safety. Coronary arteriosclerosis 09883259 I25.10 Continue isosorbide mononitrat e 30 mg ER qd, ASA 81 mg qd and atorvastat in 40 mg qd.Monitor for cardio sxs.F/U with cardio as planned. Idiopathic pulmonary fibrosis 433089093 J84.112 Continue Ofev 150 mg BID.Monito r resp status.F/U with pulmonary as planned. Mixed anxi ety and depressive disorder 108924383 F41.8 F32.89 Continue buspirone 7.5 BID, prazosin 1 mg qhs and trazadone 100 mg qhs. Insomnia 739325841 G47.0 0 Meds as above, Hyperglycemia 84613681 R 73.09 Glucose only mildly elevatedWi th HgA1C of 6.4 inpt.Likel y due to steroids.C ontinue to encourage healthy eating.Mon itor as outpt. Hyperlipidemia 58742979 E78.49 Continue atorvastat in 40 mg qdMonitor labs as outpt. Health Concerns Section Related Observation LastModified by Organization Detai ls LastModified Time None Recorded Concern Status LastModified by Organization Details LastModified Time None Recorded Advance Directives Directive Y: Payers Insurance Date Sequence Insurance Name Policy Number Policy Haywood Covered Member ID Haywood Member ID Guarantor Name 10/12/2024 1 [facility] - DOS ON OR AFTER 2022 - MEDICARE ADVANTAGE [place] (MEDICARE REPLACEMENT/ADV ANTAGE - PPO) Patricia Alexandre [id number] Patricia Alexandre Notes Date Note Type Note Provider Name and Address Organization Details Recorded Time 09/27/2024 text/html Patricia is 58 y/o a Cape Verdean-speaking female admitted to [facility] on 09/26/24 from [facility] [...] on 09/27/24, scored high risk. DANIELLE QUEZADA, JET SKI MECHANIC [address], [address], [place], [address], 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 Her PMH includes PMR with + MADY and RF, idiopathic pulmonary fibrosis, CAD, elevated blood sugars when on prednisone (HgA1C 6.4), HLD and insomnia, anxiety/depression. Harper Rosales MD [address], [address], [place], [address], [employer] 10/02/2024 22:44:50 10/05/2024 text/html ROS as noted [...] continues to be bothersome. YARA CABALLERO [address], [address], [place], [address], [place] - [employer] 10/10/2024 19:41:49 10/12/2024 text/html Discharge Summary Summarized from MD Tao This is a 58 yo woman with a PMH includes PMR with + MADY and RF, idiopathic pulmonary fibrosis, CAD, elevated blood sugars when on prednisone (HgA1C 6.4), HLD and insomnia, anxiety/depression. Admitted to [facility] for rehab after an acute hospitalization for [...] and VNA with services. YARA CABALLERO [address], [address], [place], [address], [facility] [employer] 10/12/2024 11:43:33 OBGyn Episode No OBEpisode recorded.
--- OUTSIDE RECORDS SUMMARY | 2025-05-23 11:08 | XMS_ITS | Encounter Summary ---
Author Organization [facility] Address [address] [place] [address] Care Team Providers Care Business Education Teacher Name Role Phone Lex Rich MD Primary Care Pr ovider Encounter Details Date Type Department Care Team (Late st Contact Info) Description 02/26/2025 Lab Requisition [facility] - Main Lab [address] [place] [address] Susanne Cohen MD [address] [place] [address] Pulmonary fibrosis, unspecified (CMS/HCC V24, CMS/HCC V28) Social History Tobacco Use Types Packs/Day [...] for your loved ones. For example, child neurologist or elderly care for an older adult? [...] 11:00 AM EST Office Visit Adult Medicine [address] [address] Lex Rich MD [address] [place] [address] 07/15/2025 9:00 AM EST Office Visit Pulmonology - [place] [address] [place] [address] Aysha Hernandez MD [address] [place] [address] 08/02/2025 1:00 PM EST Consult [facility] for [place] - [place] [address] [facility] [address] [place] [address] Arpita Willis PA [address] [place] [address] 08/06/2025 10:15 AM EST Office Visit Orthopedic Surgery - [place] [address] [facility] [address] [place] [address] Diony Toledo DPM [address] [place] [phone] documented as of this encounter Procedures Procedure Name Priority Date/Time Associated Diagnosis Comments HISTORICAL SURGICAL PATHOLOGY CASE Routine 02/26/2025 1:00 PM EDT Pulmonary fibrosis, unspecified (CMS/[facility] V24, CMS/[facility] V28) documented in this encounter Results * Historical Pathology Case (02/26/2025 1:00 PM EDT) Final Diagnosis This case was created to document slides being sent to [facility] from a historical case accessioned in our prior laboratory information system. The report is available upon request. No additional diagnosis is rendered by this institution at this time. 05/08/2025 11:19 AM EDT EXTERNAL LAB (NON-INTERFAC ED) at 1119 EDT Clinical Information Historical case created for requests for materials from outside institutions. 05/08/2025 11:19 AM EDT [facility] Gross Description A. Lung, Right Upper Lobe, : [id number] Whole case (5) sent JS/KK 05/08/2025 11:19 AM EDT [facility] Disclaimer Unless otherwise specified, all tissue is 10% NB formalin fixed and paraffin embedded. 05/08/2025 11:19 AM EDT [facility] Tissue Structure of upper lobe of right lung / Unknown 02/26/2025 1:00 PM EDT 02/26/2025 1:00 PM EDT us Susanne Cohen MD LAB PATHOLOGY ORDERABLES Final R esult EXTERNAL LAB (NON-INTERFACED) [facility] [address] [place] [address], documented in this encounter Visit Diagnoses Diagnosis Pulmonary fibrosis, unspecified (CMS/HCC V24, CMS/HCC V28) documented in this encounter Additional Health Concerns Assessment Noted Time PHQ-9 Depression Total Score: 0 10/19/19 25 8:17 AM EDT documented as of this encounter Care Teams Business Education Teacher Relationship Specialty Start Date End Date Lex Rich MD [address] [place] [phone] PCP - General Internal Medicine 05/24/24 documented as of this encounter
--- OUTSIDE RECORDS SUMMARY | 2025-05-23 11:08 | XMS_ITS | Encounter Summary ---
Author Organization [facility] Address [address] [place] [address] Care Team Providers Care Riveter Hand Name Role Phone Lex Rich MD Primary Care Pr ovider Encounter Details Date Type Department Care Team (Late Contact Info) Description 09/27/2024 Lab Requisition [facility] - Main Lab [address] [facility] [place] [address] Mainor Crawford MD [address] [place] [address], [phone] Polymyalgia rheumatica (CMS/HCC V24) Social History [...] Upcoming Encounters Date Type Department Care Team ([facility] Contact Info) Description 05/31/2025 11:00 AM EST Office Visit Adult Medicine [address] [phone] eLx Rich MD [address] [place] [phone] 07/15/2025 9:00 AM EST Office Visit Pulmonology [facility] [address] [facility] [address] [place] [phone] Aysha Hernandez MD [address] [place] [address] 08/02/2025 1:00 PM EST Consult [facility] for [place] - [place] [address] [facility] [address] [place] [address] Arpita Willis PA [address] [place] [phone] 08/06/2025 10:15 AM EST Office Visit Orthopedic Surgery - [place] [address] [facility] [address] [place] [phone] Diony Toledo DPM [address] [place] [phone] documented as of this encounter Procedures Procedure Name Priority Date/Time Associated Diagnosis Comments COMPLETE BLOOD COUNT Routine 09/27/2024 4:53 AM EST Polymyalgia rheumatica (CMS/HCC) COMPREHENSIVE METABOLIC PANEL Routine 09/27/2024 4:53 AM EST Polymyalgia rheumatica (CMS/HCC) documented in this encounter Results * (ABNORMAL) Comprehensive metabolic panel (09/27/2024 4:53 AM EST) Sodium 134 133 - 145 mmol/L LAB CHEMISTRY METHOD 09/27/2024 10:15 AM EST [facility] Potassium 3.8 3.5 - 5.5 mmol/L LAB CHEMISTRY METHOD 09/27/2024 10:15 AM EST [facility] Chloride 97 96 - 110 mmol/L LAB CHEMISTRY METHOD 09/27/2024 10:15 AM EST [facility] CO2 30 21 - 32 mmol/L LAB CHEMISTRY METHOD 09/27/2024 10:15 AM [facility] Anion Gap 7 3 - 11 LAB CHEMISTRY METHOD 09/27/2024 10:15 AM [facility] Glucose 108(H) 70 - 100 mg/dL LAB CHEMISTRY METHOD 09/27/2024 10:15 AM [facility] BUN 19 5 - 25 mg/dL LAB CHEMISTRY METHOD 09/27/2024 10:15 AM [facility] Creatinine 0.57 0.50 - 1.10 mg/dL LAB CHEMISTRY METHOD 09/27/2024 10:15 AM [facility] eGFR 106 >=60 mL/min/1. 73m2 LAB CHEMISTRY METHOD 09/27/2024 10:15 AM [facility] Comment:Calculation based on the Chronic Kidney Disease Epidemiology Collaboration (CKD-EPI) equation refit without adjustment for race. BUN/Creatinine Ratio 33.3 LAB CHEMISTRY METHOD 09/27/2024 10:15 AM [facility] Calcium 8.6 8.5 - 10.5 mg/dL LAB CHEMISTRY METHOD 09/27/2024 10:15 AM [facility] AST (SGOT) 35 10 - 42 unit/L LAB CHEMISTRY METHOD 09/27/2024 10:15 AM [facility] ALT (SGPT) 60 10 - 60 unit/L LAB CHEMISTRY METHOD 09/27/2024 10:15 AM [facility] Alkaline Phosphatase 100 42 - 121 unit/L LAB CHEMISTRY METHOD 09/27/2024 10:15 AM [facility] Total Protein 5.8(L) 6.0 - 8.0 g/dL LAB CHEMISTRY METHOD 09/27/2024 10:15 AM [facility] Albumin 2.3(L) 3.2 - 5.0 g/dL LAB CHEMISTRY METHOD 09/27/2024 10:15 AM [facility] Total Bilirubin 0.3 0.0 - 1.4 mg/dL LAB CHEMISTRY METHOD 09/27/2024 10:15 AM [facility] Blood Venous blood specimen / Unknown Venipuncture / Unknown 09/27/2024 4:53 AM EST 09/27/2024 8:45 AM EST us Mainor Crawford MD LAB BLOOD ORDERABLES Final Resul t [facility] [address] [place] [address], [place] [phone] * (ABNORMAL) Complete blood count (09/27/2024 4:53 AM EST) WBC 8.7 4.8 - 10.8 K/mcL LAB HEMETOLOGY METHOD 09/27/2024 9:33 AM [facility] RBC 3.60(L) 3.80 - 4.80 M/[facility] LAB HEMETOLOGY METHOD 09/27/2024 9:33 AM [facility] Hemoglobin 10.5(L) 11.5 - 16.0 g/dL LAB HEMETOLOGY METHOD 09/27/2024 9:33 AM [facility] Hematocrit 33.3(L) 35.0 - 47.0 % LAB HEMETOLOGY METHOD 09/27/2024 9:33 AM [facility] MCV 92.2 79.0 - 98.0 FL LAB HEMETOLOGY METHOD 09/27/2024 9:33 AM [facility] MCH 29.1 27.0 - 32.0 pcg LAB HEMETOLOGY METHOD 09/27/2024 9:33 AM [facility] MCHC 31.5(L) 32.0 - 37.0 g/dL LAB HEMETOLOGY METHOD 09/27/2024 9:33 AM [facility] RDW 17.8(H) 11.0 - 15.0 % LAB HEMETOLOGY METHOD 09/27/2024 9:33 AM EST [facility] Platelets 397 130 - 400 K/mcL LAB HEMETOLOGY METHOD 09/27/2024 9:33 AM EST [facility] MPV 9.2 7.0 - 11.0 FL LAB HEMETOLOGY METHOD 09/27/2024 9:33 AM EST [facility] NRBC 0.0 <1.0 % LAB HEMETOLOGY METHOD 09/27/2024 9:33 AM EST [facility] NRBC Absolute 0.00 <0.10 K/mcL LAB HEMETOLOGY METHOD 09/27/2024 9:33 AM EST [facility] Blood Venous blood specimen / Unknown Venipuncture / Unknown 09/27/2024 4:53 AM EST 09/27/2024 8:45 AM EST us Mainor Crawford MD LAB BLOOD ORDERABLES Final Resul t [facility] [address] [place] [address], documented in this encounter Visit Diagnoses Diagnosis Polymyalgia rheumatica (CMS/HCC V24) Polymyalgia rheumatica documented in this encounter Care Teams Riveter Hand Relationship Specialty Start Date End Date Lex Rich MD [address] [place] [phone] PCP - General Internal Medicine 05/24/24 documented as of this encounter
--- OUTSIDE RECORDS SUMMARY | 2025-05-23 11:08 | XMS_ITS | Data Portability ---
Author Organization [employer], [facility] Address [address] [place] [address] Care Team Providers Care Relationship Counselor Name Role Phone HIM CCA OTHER Assessment Encounter Date Assessment Date Assessment LastModified by Organization Details LastModified Time 12/13/2023 12/13/2023 I provided real -time medical direction via phone for this encounter and was available for additional phone-based assistance as needed. I have reviewed and agree with the Assessment and Plan as documented by the Certified Legal Secretary Specialist. Patient given the opportunity to ask questions. Our service contacted for an assessment of: Chronic pain As per above, patient with hx of chronic pain. No new or worsening red S&S. No new bowel/bladder symptoms. No new gait abnl. No new neurological signs, symptoms or deficits. Per entertainment production professional on the scene, VSS, non-toxic. Neuro grossly [...] in the field was performed by my entertainment production professional colleague, as noted above, I provided real-time [...] injection solution 2023 024 [email or web address] Not available 4 13:45:32 Patient TargetsNo targets recorded. Patient InstructionsNo [...] Pulse oximetry Body temperature Respiratory rate Systolic And Diastolic Provider Name and Address Organization Details Last Updated DateTime 4 65 /min 99 % 99 % 97.4 [degF] 17 /min 120/75 mm[Hg] Not Available [employer] 4 13:40:20 Date Recorded Heart rate Body temperature Respiratory rate Oxygen saturation Oxygen saturation in Arterial blood by Pulse oximetry Systolic And Diastolic Provider Name and Address Organization Details Last Updated DateTime 4 82 /min 98.7 [degF] 16 /min 98 % 98 % 120/76 mm[Hg] Not Available [employer] 4 19:15:34 Social History None recorded. Functional Status None recorded. Mental Status None recorded. Family History Nothing Reported. Medical History No medical history recorded. Gynecological HistoryNo gynecological history recorded. Obstetrics History GPAL:G 0 P 0 0 0 0 Past Encounters Encounter ID Performer Location Encounter Start Date Encounter Closed Date Diagnosis/Indication Diagnosis SNOMED-CT Code Diagnosis ICD10 Code Diagnosis IMO Codes Diagnosis Note [id number] Mariella Castro MD Main - [address] [phone] 12/13/2023 13:40:10 12/13/2023 17:51:43 Chronic pain 17583953 G89.29 [id number] Hafsa Angel MD Main - [facility] [address] [place] [phone] 12/14/2023 19:15:30 12/15/2023 11:44:34 Erythematous rash 852968123 R21 Health Concerns Section Related Observation LastModified by Organization Detai ls LastModified Time None Recorded Concern Status LastModified by Organization Details LastModified Time None Recorded Advance Directives Directive None Recorded Payers Insurance Date Sequence Insurance Name Policy Number Policy Haywood Covered Member ID Haywood Member ID Guarantor Name 12/12/[address] [facility] - DOS ON OR AFTER 2022 - DUAL ELIGIBLE - [facility] OPTIONS AND ONE CARE (MEDICARE REPLACEMENT/ADV ANTAGE - HMO) Patricia Alexandre [id number] Patricia Alexandre Notes Date Note Type Note [...] ................. ................. ................. ................. ................. ................. ..... Certified Legal Secretary Specialist Note From Elena Chahal: 58y F c/o R arm and neck pain and concerned for possible infection of surgical sites on R side s/p lung biopsy on 12/05 for fibrosis. Pt a&ox3, vss, afebrile; denies chest pain, sob, abd pain, or n/v/d. No redness, warmth, or drainage from incision sites. Pt s son states chronic muscle spasms in R arm and neck which have been worse over the last x1-2 days, rx pain medication post biopsy and rx muscle relaxer not effective. [facility] consulted, 30mg toradol IM administered. Red flags reviewed. ................. ................. ................. ................. ................. ................. ................. ................. ..... Disposition: Cole Castro MD [address] [facility],[address], [place], [address], JULIAN - CRIS CORTEZ 12/13/2023 13:48:03 12/14/2023 text/html CRC Nurse Triage Notes (Danelle Cotton): Reason For Request: Follow up from surgery /muscular spasms Chief Complaints: Pain PMH: Other Allergies: Unknown Comments: Bicycle I Assembler verified the member's name//address and phone number. Member is a 58 yr old female, sinhala speaking PMH Son calling for member, had [...] reported s/s and [facility]: spasms of right arm are chronic. [...] ................. ................. ................. ................. ................. ................. ........ Certified Legal Secretary Specialist Note From Caden Bennett: Dispatched to the call address for the follow up. Pt was seen by Jakub yesterday for upper extremity spasms and pain. [...] ................. ................. ................. ................. ................. ..... Disposition: Fulfilled Hafsa Angel MD [address] [facility],[address], [place], [address], [employer] 12/14/2023 21:13:02 OBGyn Episode No OBEpisode recorded.
== END 2025-05-23 10:05 | disposition home or self-care (01) ==
LOC: HO.HSM 09:37
PROVIDERS: PCP Family Medicine; Visit Provider Psychiatry & Neurology Neurology
DX: G62.9 Polyneuropathy, unspecified (principal)
CPT/HCPCS: 99204

== ENCOUNTER → 2025-05-23 09:36 | Outpatient (BNVA) | payer OTHER, SELFPAY | PROVIDERS: PCP Family Medicine; Visit Provider Psychiatry & Neurology Neurology | DX: M79.2 Neuralgia and neuritis, unspecified (principal); G62.9 Polyneuropathy, unspecified; Z79.52 Long term (current) use of systemic steroids | CPT/HCPCS: 99202 ==

== ENCOUNTER 2025-05-28 07:09 | Outpatient (REF) | payer OTHER, SELFPAY ==
--- NOTE | ~2025-05-28 | FL_ITS ---
EXAMINATION: FL GUIDANCE ONLY HISTORY: M47.816 - Spondylosis without myelopathy or radiculopathy, lumbar region COMPARISON: None available. TECHNIQUE: Fluoroscopy time: 47 seconds. Cumulative Dose: 4.50 mGy. DAP: 843.10 mGycm2 Images: 9. FINDINGS: Fluoroscopic spot films of the lumbar spine demonstrate needles and contrast material in the regions of the bilateral L3-4, L4-5, and L5-S1 facet joints. FL/FL guidance in treatment room IMPRESSION: Fluoroscopy during procedure. Please see procedure report for additional information. Electronically signed by: Jack Jeff MD 05/28/2025 03:43 PM [facility]
--- OUTSIDE RECORDS SUMMARY | 2025-05-28 07:12 | XMS_ITS | Encounter Summary ---
Author Organization [facility] Address [address] [place] [address] Care Team Providers Care Office Automation Clerk Name Role Phone Lex Rich MD Primary Care Pr ovider Encounter Details Date Type Department Care Team (Late Contact Info) Description 10/07/[address] [facility] - Main Lab [address] [facility] [place] [address] Mainor Crawford MD [address] [place] [address], [phone] Polymyalgia rheumatica (CMS/HCC V24) Social History [...] Upcoming Encounters Date Type Department Care Team ([facility] Contact Info) Description 05/31/2025 11:00 AM EST Office Visit Adult Medicine [address] [phone] Lex Rich MD [address] [place] [phone] 07/15/2025 9:00 AM EST Office Visit Pulmonology - [place] [address] [facility] 200 [place] [phone] Aysha Hernandez MD [address] [place] [phone] 08/02/2025 1:00 PM EST Consult [facility] Center for [place] - [place] [address] [facility] 150 [place] [phone] Arpita Willis PA [address] [place] [phone] 08/06/2025 10:15 AM EST Office Visit Orthopedic Surgery - [place] 250 [address] [facility] 250 [place] [phone] Diony Toledo DPM [address] [place] [phone] documented as of this encounter Procedures Procedure Name Priority Date/Time Associated Diagnosis Comments PREALBUMIN Routine 10/08/2024 5:24 AM EDT Polymyalgia rheumatica (CMS/HCC) documented in this encounter Results * Prealbumin (10/08/2024 5:24 AM EDT) Prealbumin 27 18 - 45 mg/dL LAB CHEMISTRY METHOD 10/08/2024 11:51 AM EDT [facility] Blood Venous blood specimen / Unknown Venipuncture / Unknown 10/08/2024 5:24 AM EDT 10/08/2024 10:33 AM EDT us Mainor Crawford MD LAB BLOOD ORDERABLES Final Resul t [facility] ([facility]) [facility] [address] [place], [place] [address] [phone] documented in this encounter Visit Diagnoses Diagnosis Polymyalgia rheumatica (CMS/[facility] V24) Polymyalgia rheumatica documented in this encounter Care Teams Office Automation Clerk Relationship Specialty Start Date End Date Lex Rich MD [address] [place] [phone] PCP - General Internal Medicine 05/24/24 documented as of this encounter
--- OUTSIDE RECORDS SUMMARY | 2025-05-28 07:12 | XMS_ITS | Encounter Summary ---
Author Organization [facility] Address [address] [place] [address] Care Team Providers Care Vehicle Operator Name Role Phone Lex Rich MD Primary Care Pr ovider Encounter Details Date Type Department Care Team (Late Contact Info) Description 09/19/2024 Billing Patient Not Present Adult Medicine [address] [phone] Shannon Wymanbel [place] Social History Tobacco Use Types Packs/Day Years [...] 11:00 AM EST Office Visit Adult Medicine [address] [phone] Lex Rich MD [address] [place] [address] 07/15/2025 9:00 AM EST Office Visit Pulmonology - [address] [place] [phone] Aysha Hernandez MD [address] [place] [phone] 08/02/2025 1:00 PM EST Consult [facility] [place] - [place] 175 [facility] 150 [place] [phone] Arpita Willis PA [address] [place] [phone] 08/06/2025 10:15 AM EST Office Visit Orthopedic Surgery - [place] [address] [facility] 250 [place] [phone] Diony Toledo DPM [address] [place] [phone] documented as of this encounter Visit Diagnoses Not on filedocumented in this encounter Care Teams Vehicle Operator Relationship Specialty Start Date End Date Lex Rich MD [address] [place] [address] PCP - General Internal Medicine 05/24/24 documented as of this encounter
--- OUTSIDE RECORDS SUMMARY | 2025-05-28 07:12 | XMS_ITS | Clinical Summary ---
Author Organization [facility] Address [address] [address] Phone Care Team Providers Care Relay Dispatcher Name Role Phone Lex Rich MD Primary Care Pr ovider Medications acetaminophen (TYLENOL) 325 mg tablet Take by mouth. 5 Active albuterol 90 mcg/actuation inhaler PLEASE SEE ATTACHED FOR DETAILED DIRECTIONS Active aspirin 81 mg chewable tablet Take 81 mg by mouth. 5 Active atorvastatin (LIPITOR) 40 MG tablet Take 40 mg by mouth daily. 4 Active baclofen (LIORESAL) 10 MG tablet Take 10 mg by mouth 3 (three) times a day. 5 Active busPIRone (BUSPAR) 7.5 MG tablet Take 7.5 mg by mouth 2 (two) times a day. 4 Active cholecalciferol (VITAMIN D3) 2,000 unit tablet Take 2,000 Units by mouth. 5 11/18/19 26 Active cyclobenzaprine (FLEXERIL) 5 MG tablet Take 5 mg by mouth. 4 Active folic acid (FOLVITE) 1 MG tablet Take 1 tablet by mouth every morning. 5 Active gabapentin (NEURONTIN) 300 MG capsule Take 300 mg by mouth. 5 Active hydroxychloroqu ine (PLAQUENIL) 200 mg tablet 5 Active methotrexate 2.5 MG Oral tablet TAKE 4 TABS BY MOUTH WEEKLY 5 Active mirtazapine (REMERON) 7.5 MG tablet take 1 tablet by mouth everyday at bedtime 5 Active OFEV 150 mg capsule Take 150 mg by mouth. 4 08/30/19 26 Active predniSONE (DELTASONE) 10 MG tablet Take 10 mg by mouth daily. Active rosuvastatin (CRESTOR) 10 MG tablet Take 10 mg by mouth. 5 Active senna (SENOKOT) 8.6 mg tablet Take by mouth. 5 Active traZODone (DESYREL) 100 MG tablet take 1 tablet by mouth everyday at bedtime Active Active Problems Problem Noted Date Diagnosed Date Type 2 diabetes mellitus wit hout complication, without long-term current use of insulin 10/21/2024 Polymyalgia rheumatica 09/27/2024 Prediabetes 07/27/2024 Primary osteoarthritis of right hip 07/27/2024 Subclinical hyperthyroidism 07/27/2024 Chronic midline low back pain without sciatica 0 12/26/2023 ILD (interstitial lung disease) 08/04/2023 Overview (02/02/2025): Last Assessment & Plan: Ms. Alexandre is [...] incisional pain. Directed to follow-up with her tax associate Dr. Hernandez in regards to her pulmonary fibrosis. Will follow-up with the thoracic surgical department moving forward on a as needed basis and to contact the thoracic surgery department should she have any further questions or concerns in the future. Hyperlipidemia 06/27/2023 Insomnia 06/24/2023 Anxiety and depression 02/17/2023 Osteopenia 02/17/2023 Encounters Date Type Department Care Team Description 03/05/2025 7:27 AM EDT - 03/05/2025 11:59 PM EDT Hospital Encounter [facility] PATHOLOGY VIRTUAL DEPARTMENT [address] [place] [address] Discharge Disposition: Home or Self Care from Last 3 Months Social History Tobacco Use Types Packs/Day Years [...] on file Sexual Orientation Not on file Last Filed Vital Signs Vital Sign Reading Time Taken Comments Blood Pressure 119/81 02/05/2025 10:36 AM EDT Pulse 80 02/05/2025 10:36 AM EDT Temperature 36.1 C (97 F) 02/05/2025 10:36 AM EDT Respiratory Rate 16 02/05/2025 10:36 AM EDT Oxygen Saturation 98% 02/05/2025 10:36 AM EDT Inhaled Oxygen Concentration - - Weight 59.9 kg (132 lb) 02/05/2025 10:36 AM EDT Height 152.4 cm (5') 02/05/2025 10:36 AM EDT Body Mass Index 25.78 02/05/2025 10:36 AM EDT Plan of Treatment Health Maintenance Due Date Last Done Comments COVID-19 VACCINE (#1) 10/30/1971 DEPRESSION SCREENING 1978 SMOKING Hx and SMOKELESS TOBACCO SCREENING 10/30/1979 HEPATITIS C SCREENING 1984 HIV ONE-TIME SCREENING (18-6 5 YEARS) 1984 ZOSTER VACCINES (1 of 2) 1985 PAP SMEAR 10/30/1987 MAMMOGRAM 2006 COLOGUARD 10/30/2011 COLONOSCOPY 10/30/2011 COLORECTAL CANCER SCREENING 10/30/2011 FIT TEST 10/30/2011 FOBT 10/30/2011 SIGMOIDOSCOPY 10/30/2011 VIRTUAL COLONOSCOPY 10/30/2011 RSV VACCINE (1 - Risk 50-74 years 1-dose series) 2016 DIABETIC EYE EXAM 02/05/2025 URINE MICROALBUMIN/CREATININ E RATIO 02/05/2025 INFLUENZA VACCINE (#1) 2025 04/19/2023 HEMOGLOBIN A1C 04/20/2025 10/18/2024, 07/12/2024 BLOOD PRESSURE 08/08/2025 02/05/2025 Adult Td,Tdap Booster 04/19/2033 04/19/2023 PNEUMOCOCCAL VACCINES (50+ years) Completed 11/22/2024 HEPATITIS A VACCINES Aged Out No long er eligible based on patient's age to complete this topic HIB VACCINES Aged Out No longer eligi ble based on patient's age to complete this topic MENINGOCOCCAL VACCINES (ACWY) Aged Out No longer eligible based on patient's age to complete this topic MENINGOCOCCAL VACCINES (B) Aged Out N o longer eligible based on patient's age to complete this topic Medical Devices Not on file Procedures Procedure Name Priority Date/Time Associated Diagnosis Comments ANATOMIC PATHOLOGY Routine 03/05/2025 12 :00 AM EDT OUTSIDE PATHOLOGY REVIEW Routine 03/05/2025 12:00 AM EDT OUTSIDE PATHOLOGY 02/27/2025 OUTSIDE IMAGING 02/25/2025 from Last 3 Months Results * Outside Pathology Review (03/05/2025 12:00 AM EDT) 03/05/2025 03/05/2025 7:3 6 AM EDT Narrative SEE NARRATIVE - 03/06/2025 11:43 AM [place] [address] Surgical Pathology Outside Consultation Patient Name: PATRICIA ALEXANDRE : 1965 (Age: 59) Sex: F Location: [facility] Institution: [facility] Date of Reported: 03/06/2025 11:43 Results To: Jack Gibbons MD FINAL PATHOLOGIC DIAGNOSIS: A. LUNG, RIGHT UPPER LOBE, WEDGE RESECTION ([id number] A1; 12/06/2023): Patchy interstitial fibrosis with lymphoplasmacytic cell infiltrates. See note. B. LUNG, RIGHT MIDDLE LOBE, WEDGE RESECTION ([id number] B1, B2; 12/06/2023): Patchy interstitial fibrosis with lymphoplasmacytic cell infiltrates. See note. C. LUNG, RIGHT LOWER LOBE, WEDGE RESECTION ([id number] C1, C2; 12/06/2023): Patchy interstitial fibrosis with honeycombing and lymphoplasmacytic cell infiltrates. See note. Note: Sections show subpleural pulmonary parenchyma with patchy interstitial fibrosis, peribronchiolar metaplasia, traction bronchiolectasis, and lymphoplasmacytic infiltrates. Honeycomb changes are prominent in the lower lobe biopsy. Scattered fibroblastic foci are present. There are lymphoid aggregates with germinal centers often associated with mucostasis. Focal chronic pleuritis is also noted in middle and lower lobe biopsies. No granulomas or vasculitis are identified. The overall findings are consistent with a UIP pattern of fibrosis. Possible etiologies include connective tissue disorders, idiopathic or familial (idiopathic pulmonary fibrosis), and less likely chronic hypersensitivity pneumonitis. Clinical correlation is recommended. Electronically Signed Out By Shannon Harris MD Resident Pathologist: Richard Cheung MD By his/her signature above, the pathologist listed as making the Final Diagnosis certifies that he/she has personally reviewed the case and confirmed the diagnosis. All slides and stains were of sufficient quality to establish the diagnosis, unless otherwise stated. CLINICAL HISTORY Interstitial lung disease SPECIMENS SUBMITTED: A: LUNG, RIGHT UPPER LOBE, WEDGE RESECTION ([id number] A1; 12/06/2023) B: LUNG, RIGHT MIDDLE LOBE, WEDGE RESECTION ([id number] B1, B2; 12/06/2023) C: LUNG, RIGHT LOWER LOBE, WEDGE RESECTION ([id number] C1, C2; 12/06/2023) SLIDE-BLOCK DESCRIPTION: Consult materials received from [place], [place] on 02/27/2025. A. LUNG, RIGHT UPPER LOBE, WEDGE RESECTION ([id number] A1; 12/06/2023): Stained Slides: 1 Unstained slides: 0 Blocks: 0 B. LUNG, RIGHT MIDDLE LOBE, WEDGE RESECTION ([id number] B1, B2; 12/06/2023): Stained Slides: 2 Unstained slides: 0 Blocks: 0 C. LUNG, RIGHT LOWER LOBE, WEDGE RESECTION ([id number] C1, C2; 12/06/2023): Stained Slides: 2 Unstained slides: 0 Blocks: 0 Jack Gibbons MD PATHOLOGY ORDERABLES Final Result SEE NARRATIVE * Anatomic Pathology (Non-MGB) (03/05/2025 12:00 AM EDT) Report [place] [address] Surgical Pathology Outside Consultation Patient Name: PATRICIA ALEXANDRE : 1965 (Age: 59) Sex: F Location: [facility] Institution: [facility] Date of Reported: 03/06/2025 11:43 Results To: Jack Gibbons MD FINAL PATHOLOGIC DIAGNOSIS: A. LUNG, RIGHT UPPER LOBE, WEDGE RESECTION ([id number] A1; 12/06/2023): Patchy interstitial fibrosis with lymphoplasmacytic cell infiltrates. See note. B. LUNG, RIGHT MIDDLE LOBE, WEDGE RESECTION ([id number] B1, B2; 12/06/2023): Patchy interstitial fibrosis with lymphoplasmacytic cell infiltrates. See note. C. LUNG, RIGHT LOWER LOBE, WEDGE RESECTION ([id number] C1, C2; 12/06/2023): Patchy interstitial fibrosis with honeycombing and lymphoplasmacytic cell infiltrates. See note. Note: Sections show subpleural pulmonary parenchyma with patchy interstitial fibrosis, peribronchiolar metaplasia, traction bronchiolectasis, and lymphoplasmacytic infiltrates. Honeycomb changes are prominent in the lower lobe biopsy. Scattered fibroblastic foci are present. There are lymphoid aggregates with germinal centers often associated with mucostasis. Focal chronic pleuritis is also noted in middle and lower lobe biopsies. No granulomas or vasculitis are identified. The overall findings are consistent with a UIP pattern of fibrosis. Possible etiologies include connective tissue disorders, idiopathic or familial (idiopathic pulmonary fibrosis), and less likely chronic hypersensitivity pneumonitis. Clinical correlation is recommended. Electronically Signed Out By Shannon Harris MD Resident Pathologist: Richard Cheung MD By his/her signature above, the pathologist listed as making the Final Diagnosis certifies that he/she has personally reviewed the case and confirmed the diagnosis. All slides and stains were of sufficient quality to establish the diagnosis, unless otherwise stated. CLINICAL HISTORY Interstitial lung disease SPECIMENS SUBMITTED: A: LUNG, RIGHT UPPER LOBE, WEDGE RESECTION ([id number] A1; 12/06/2023) B: LUNG, RIGHT MIDDLE LOBE, WEDGE RESECTION ([id number] B1, B2; 12/06/2023) C: LUNG, RIGHT LOWER LOBE, WEDGE RESECTION ([id number] C1, C2; 12/06/2023) SLIDE-BLOCK DESCRIPTION: Consult materials received from [place], [place] on 02/27/2025. A. LUNG, RIGHT UPPER LOBE, WEDGE RESECTION ([id number] A1; 12/06/2023): Stained Slides: 1 Unstained slides: 0 Blocks: 0 B. LUNG, RIGHT MIDDLE LOBE, WEDGE RESECTION ([id number] B1, B2; 12/06/2023): Stained Slides: 2 Unstained slides: 0 Blocks: 0 C. LUNG, RIGHT LOWER LOBE, WEDGE RESECTION ([id number] C1, C2; 12/06/2023): Stained Slides: 2 Unstained slides: 0 Blocks: 0 [facility] Clinical History Interstitial lung disease [facility] Final Diagnosis A. LUNG, RIGHT UPPER LOBE, WEDGE RESECTION ([id number] A1; 12/06/2023): Patchy interstitial fibrosis with lymphoplasmacytic cell infiltrates. See note. B. LUNG, RIGHT MIDDLE LOBE, WEDGE RESECTION ([id number] B1, B2; 12/06/2023): Patchy interstitial fibrosis with lymphoplasmacytic cell infiltrates. See note. C. LUNG, RIGHT LOWER LOBE, WEDGE RESECTION ([id number] C1, C2; 12/06/2023): Patchy interstitial fibrosis with honeycombing and lymphoplasmacytic cell infiltrates. See note. Note: Sections show subpleural pulmonary parenchyma with patchy interstitial fibrosis, peribronchiolar metaplasia, traction bronchiolectasis, and lymphoplasmacytic infiltrates. Honeycomb changes are prominent in the lower lobe biopsy. Scattered fibroblastic foci are present. There are lymphoid aggregates with germinal centers often associated with mucostasis. Focal chronic pleuritis is also noted in middle and lower lobe biopsies. No granulomas or vasculitis are identified. The overall findings are consistent with a UIP pattern of fibrosis. Possible etiologies include connective tissue disorders, idiopathic or familial (idiopathic pulmonary fibrosis), and less likely chronic hypersensitivity pneumonitis. Clinical correlation is recommended. [facility] Slide-Block Description Consult materials received from [place], [place] on 02/27/2025. A. LUNG, RIGHT UPPER LOBE, WEDGE RESECTION ([id number] A1; 12/06/2023): Stained Slides: 1 Unstained slides: 0 Blocks: 0 B. LUNG, RIGHT MIDDLE LOBE, WEDGE RESECTION ([id number] B1, B2; 12/06/2023): Stained Slides: 2 Unstained slides: 0 Blocks: 0 C. LUNG, RIGHT LOWER LOBE, WEDGE RESECTION ([id number] C1, C2; 12/06/2023): Stained Slides: 2 Unstained slides: 0 Blocks: 0 [facility] Conversion Type (Conversion Source) 03/05/2025 03/05/2025 7:36 AM EDT Conversion Type (Conversion Source) 03/05/2025 03/05/2025 7:36 AM EDT Conversion Type (Conversion Source) 03/05/2025 03/05/2025 7:36 AM EDT us Jack Gibbons MD LAB PATHOLOGY ORDERABLES E dited Result - Final [address] [address] * Outside Pathology (02/27/2025) us Scanning Interface Provider PATHOLOGY ORDERABLES Final Result * Outside Imaging Report Only (02/25/2025) us Scanning Interface Provider IMG XR CHEST Hodan l Result from Last 3 Months Insurance [facility] MEDICARE REPLACEMENT [facility] MEDICARE REPLACEMENT [facility] MEDICARE REPLACEMENT [facility] MEDICARE REPLAC[place] [address] [address] [place] [address] MEDICARE REPLACEMENT [facility] MEDICARE REPLACEMENT Care Teams Relay Dispatcher Relationship Specialty Start Date End Date Lex Rich MD PCP - General Family Medicine 02/20/24 Additional Source Comments The information contained in this document represents components of the legal health record. It is not the complete legal health record.[facility]
--- OUTSIDE RECORDS SUMMARY | 2025-05-28 07:12 | XMS_ITS | Encounter Summary ---
Author Organization [facility] Address [address] [place] [address] Care Team Providers Care Straw Boss Name Role Phone Lex Rich MD Primary Care Pr ovider Encounter Details Date Type Department Care Team (Late Contact Info) Description 09/27/2024 Lab Requisition [facility] - Main Lab 299 [facility] [place] [address] Mainor Crawford MD [address] [place] [address], [phone] Polymyalgia rheumatica (CMS/HCC V24) Social History [...] Upcoming Encounters Date Type Department Care Team ([facility] Contact Info) Description 05/31/2025 11:00 AM EST Office Visit Adult Medicine [address] [phone] Lex Rich MD [address] [place] [phone] 07/15/2025 9:00 AM EST Office Visit Pulmonology [facility] 175 [facility] 200 [place] [phone] Aysha Hernandez MD [address] [place] [phone] 08/02/2025 1:00 PM EST Consult [facility] - [place] 175 [facility] 150 [place] [phone] Arpita Willis PA [address] [place] [phone] 08/06/2025 10:15 AM EST Office Visit Orthopedic Surgery - [place] 250 175 [facility] 250 [place] [phone] Diony Toledo DPM [address] [place] [phone] documented as of this encounter Procedures Procedure Name Priority Date/Time Associated Diagnosis Comments COMPLETE BLOOD COUNT Routine 09/27/2024 4:53 AM EST Polymyalgia rheumatica (CMS/HCC) COMPREHENSIVE METABOLIC PANEL Routine 09/27/2024 4:53 AM EST Polymyalgia rheumatica (CMS/HCC) documented in this encounter Results * (ABNORMAL) Comprehensive metabolic panel (09/27/2024 4:53 AM EST) Sodium 134 133 - 145 mmol/L LAB CHEMISTRY METHOD 09/27/2024 10:15 AM EST [facility] Potassium 3.8 3.5 - 5.5 mmol/L LAB CHEMISTRY METHOD 09/27/2024 10:15 AM EST [facility] Chloride 97 96 - 110 mmol/L LAB CHEMISTRY METHOD 09/27/2024 10:15 AM EST [facility] CO2 30 21 - 32 mmol/L LAB CHEMISTRY METHOD 09/27/2024 10:15 AM [facility] Anion Gap 7 3 - 11 LAB CHEMISTRY METHOD 09/27/2024 10:15 AM [facility] Glucose 108(H) 70 - 100 mg/dL LAB CHEMISTRY METHOD 09/27/2024 10:15 AM [facility] BUN 19 5 - 25 mg/dL LAB CHEMISTRY METHOD 09/27/2024 10:15 AM [facility] Creatinine 0.57 0.50 - 1.10 mg/dL LAB CHEMISTRY METHOD 09/27/2024 10:15 AM [facility] eGFR 106 >=60 mL/min/1. 73m2 LAB CHEMISTRY METHOD 09/27/2024 10:15 AM [facility] Comment:Calculation based on the Chronic Kidney Disease Epidemiology Collaboration (CKD-EPI) equation refit without adjustment for race. BUN/Creatinine Ratio 33.3 LAB CHEMISTRY METHOD 09/27/2024 10:15 AM [facility] Calcium 8.6 8.5 - 10.5 mg/dL LAB CHEMISTRY METHOD 09/27/2024 10:15 AM [facility] AST (SGOT) 35 10 - 42 unit/L LAB CHEMISTRY METHOD 09/27/2024 10:15 AM [facility] ALT (SGPT) 60 10 - 60 unit/L LAB CHEMISTRY METHOD 09/27/2024 10:15 AM [facility] Alkaline Phosphatase 100 42 - 121 unit/L LAB CHEMISTRY METHOD 09/27/2024 10:15 AM [facility] Total Protein 5.8(L) 6.0 - 8.0 g/dL LAB CHEMISTRY METHOD 09/27/2024 10:15 AM [facility] Albumin 2.3(L) 3.2 - 5.0 g/dL LAB CHEMISTRY METHOD 09/27/2024 10:15 AM [facility] Total Bilirubin 0.3 0.0 - 1.4 mg/dL LAB CHEMISTRY METHOD 09/27/2024 10:15 AM [facility] Blood Venous blood specimen / Unknown Venipuncture / Unknown 09/27/2024 4:53 AM EST 09/27/2024 8:45 AM EST us Mainor Crawford MD LAB BLOOD ORDERABLES Final Resul t [facility] [address] [place] [address], [place] [phone] * (ABNORMAL) Complete blood count (09/27/2024 4:53 AM EST) WBC 8.7 4.8 - 10.8 K/mcL LAB HEMETOLOGY METHOD 09/27/2024 9:33 AM [facility] RBC 3.60(L) 3.80 - 4.80 M/[facility] LAB HEMETOLOGY METHOD 09/27/2024 9:33 AM [facility] Hemoglobin 10.5(L) 11.5 - 16.0 g/dL LAB HEMETOLOGY METHOD 09/27/2024 9:33 AM [facility] Hematocrit 33.3(L) 35.0 - 47.0 % LAB HEMETOLOGY METHOD 09/27/2024 9:33 AM [facility] MCV 92.2 79.0 - 98.0 FL LAB HEMETOLOGY METHOD 09/27/2024 9:33 AM [facility] MCH 29.1 27.0 - 32.0 pcg LAB HEMETOLOGY METHOD 09/27/2024 9:33 AM [facility] MCHC 31.5(L) 32.0 - 37.0 g/dL LAB HEMETOLOGY METHOD 09/27/2024 9:33 AM [facility] RDW 17.8(H) 11.0 - 15.0 % LAB HEMETOLOGY METHOD 09/27/2024 9:33 AM EST [facility] Platelets 397 130 - 400 K/mcL LAB HEMETOLOGY METHOD 09/27/2024 9:33 AM EST [facility] MPV 9.2 7.0 - 11.0 FL LAB HEMETOLOGY METHOD 09/27/2024 9:33 AM EST [facility] NRBC 0.0 <1.0 % LAB HEMETOLOGY METHOD 09/27/2024 9:33 AM EST [facility] NRBC Absolute 0.00 <0.10 K/mcL LAB HEMETOLOGY METHOD 09/27/2024 9:33 AM EST [facility] Blood Venous blood specimen / Unknown Venipuncture / Unknown 09/27/2024 4:53 AM EST 09/27/2024 8:45 AM EST us Mainor Crawfodr MD LAB BLOOD ORDERABLES Final Resul t [facility] 299 [place] [address], documented in this encounter Visit Diagnoses Diagnosis Polymyalgia rheumatica (CMS/HCC V24) Polymyalgia rheumatica documented in this encounter Care Teams Straw Boss Relationship Specialty Start Date End Date Lex Rich MD [address] [place] [phone] PCP - General Internal Medicine 05/24/24 documented as of this encounter
--- OUTSIDE RECORDS SUMMARY | 2025-05-28 07:12 | XMS_ITS | Clinical Summary ---
Author Organization [employer] Address 75 [facility] 7t [place] [address] Care Team Providers Care Adult Literacy Instructor Name Role Phone Unavailable Primary Care Provider [...] Screening 1966 SDOH Screening 1966 Sigmoidoscopy 1966 Disability Screening 1966 Alcohol/Substance Use Screening 1978 Tobacco Screening [...] COVID-19 Vaccine ( - 2023-2 5 season) 2025 Influenza Vaccine (#1) 2025 RSV Patients and Pa tients Aged 60 [...] patient's age to complete this topic Insurance [facility] STANDARD MEDIC[place] [phone]
--- OUTSIDE RECORDS SUMMARY | 2025-05-28 07:12 | XMS_ITS | Encounter Summary ---
Author Organization [employer] Address 75 [facility] 7t [place] [address] Care Team Providers Care Cooler Worker Name Role Phone Unavailable Primary Care Provider Unavailabl e Reason for Visit * Reason Onset Date Comments New Patient 04/12/2023 Encounter Details Date Type Department Care Team (Late st Contact Info) Description 04/12/2023 Telephone [facility] 230 [place] [address] Oumar hCen MD 230 [place] [address] New Patient Social History Tobacco Use Types [...] PM EDT Tc to pt, to offer Cereal Miller appt, No answer answer, could not leave voicemail due to not being set up . documented in this encounter Plan of Treatment Not on file documented as of this encounter Visit Diagnoses Not on filedocumented in this encounter
--- OUTSIDE RECORDS SUMMARY | 2025-05-28 07:12 | XMS_ITS | Encounter Summary ---
Author Organization [facility] Address [address] [place] [address] Care Team Providers Care Measurement Supervisor Name Role Phone Lex Rich MD Primary Care Pr ovider Encounter Details Date Type Department Care Team ([facility] st Contact Info) Description 02/26/2025 Lab Requisition [facility] - Main Lab [address] [facility] [place] [address] Susanne Cohen MD 230 [place] [phone] Pulmonary fibrosis, unspecified (CMS/HCC V24, CMS/HCC V28) [...] for your loved ones. For example, child support investigator or elderly care for an older adult? [...] 11:00 AM EST Office Visit Adult Medicine [address] [phone] Lex Rich MD [address] [place] [address] 07/15/2025 9:00 AM EST Office Visit Pulmonology - [place] 175 [facility] [address] [place] [phone] Aysha Hernandez MD 230 [place] [phone] 08/02/2025 1:[address] [facility] for [facility] - [place] 175 [facility] 150 [place] [phone] Arpita Willis PA 230 [place] [phone] 08/06/2025 10:15 AM EST Office Visit Orthopedic Surgery - [place] 250 175 [facility] 250 [place] [phone] Diony Toledo DPM 230 [place] [phone] documented as of this encounter Procedures Procedure Name Priority Date/Time Associated Diagnosis Comments HISTORICAL SURGICAL PATHOLOGY CASE Routine 02/26/2025 1:00 PM EDT Pulmonary fibrosis, unspecified (CMS/[facility] V24, CMS/[facility] V28) documented in this encounter Results * Historical Pathology Case (02/26/2025 1:00 PM EDT) Final Diagnosis This case was created to document slides being sent to [facility] from a historical case accessioned in our prior laboratory information system. The report is available upon request. No additional diagnosis is rendered by this institution at this time. 05/08/2025 11:19 AM EDT EXTERNAL LAB (NON-INTERFAC ED) at 1119 EDT Clinical Information Historical case created for requests for materials from outside institutions. 05/08/2025 11:19 AM EDT [facility] Gross Description A. Lung, Right Upper Lobe, : [id number] Whole case (5) sent JS/KK 05/08/2025 11:19 AM EDT [facility] Disclaimer Unless otherwise specified, all tissue is 10% NB formalin fixed and paraffin embedded. 05/08/2025 11:19 AM EDT [facility] Tissue Structure of upper lobe of right lung / Unknown 02/26/2025 1:00 PM EDT 02/26/2025 1:00 PM EDT us Susanne Cohen MD LAB PATHOLOGY ORDERABLES Final R esult EXTERNAL LAB (NON-INTERFACED) [facility] 299 [place] [address], documented in this encounter Visit Diagnoses Diagnosis Pulmonary fibrosis, unspecified (CMS/HCC V24, CMS/HCC V28) documented in this encounter Additional Health Concerns Assessment Noted Time PHQ-9 Depression Total Score: 0 10/19/19 25 8:17 AM EDT documented as of this encounter Care Teams Measurement Supervisor Relationship Specialty Start Date End Date Lex Rich MD [address] [place] [phone] PCP - General Internal Medicine 05/24/24 documented as of this encounter
--- OUTSIDE RECORDS SUMMARY | 2025-05-28 07:12 | XMS_ITS | Data Portability ---
Author Organization [facility] Address [address] [place] [address] Care Team Providers Care Mycologist Name Role Phone HIM CCA OTHER Assessment Encounter Date Assessment Date Assessment LastModified by Organization Details LastModified Time 12/13/2023 12/13/2023 I provided real -time medical direction via phone for this encounter and was available for additional phone-based assistance as needed. I have reviewed and agree with the Assessment and Plan as documented by the Wellness Coach. Patient given the opportunity to ask questions. Our service contacted for an assessment of: Chronic pain As per above, patient with hx of chronic pain. No new or worsening red S&S. No new bowel/bladder symptoms. No new gait abnl. No new neurological signs, symptoms or deficits. Per sewing line baler on the scene, VSS, non-toxic. Neuro grossly [...] in the field was performed by my sewing line baler colleague, as noted above, I provided real-time [...] [degF] 17 /min 120/75 mm[Hg] Not Available [employer] 4 13:40:20 Date Recorded Heart rate Body temperature Respiratory rate Oxygen saturation Oxygen saturation in Arterial blood by Pulse oximetry Systolic And Diastolic Provider Name and Address Organization Details Last Updated DateTime 4 82 /min 98.7 [degF] 16 /min 98 % 98 % 120/76 mm[Hg] Not Available [employer] 4 19:15:34 Social History None recorded. Functional Status None recorded. Mental Status None recorded. Family History Nothing Reported. Medical History No medical history recorded. Gynecological HistoryNo gynecological history recorded. Obstetrics History GPAL:G 0 P 0 0 0 0 Past Encounters Encounter ID Performer Location Encounter Start Date Encounter Closed Date Diagnosis/Indication Diagnosis SNOMED-CT Code Diagnosis ICD10 Code Diagnosis IMO Codes Diagnosis Note [id number] Mariella Castro MD Main - [address] [phone] 12/13/2023 13:40:10 12/13/2023 17:51:43 Chronic pain 67293979 G89.29 [id number] Hafsa Angel MD Main - [facility] [address] [place] [phone] 12/14/2023 19:15:30 12/15/2023 11:44:34 Erythematous rash 072014476 R21 Health Concerns Section Related Observation LastModified by Organization Detai ls LastModified Time None Recorded Concern Status LastModified by Organization Details LastModified Time None Recorded Advance Directives Directive None Recorded Payers Insurance Date Sequence Insurance Name Policy Number Policy Haywood Covered Member ID Haywood Member ID Guarantor Name 12/12/2023 1 [facility] - DOS ON OR AFTER 2022 - DUAL ELIGIBLE - SKILLED NURSING OPTIONS AND ONE CARE (MEDICARE REPLACEMENT/ADV ANTAGE - HMO) Patricia Alexandre [id number] Patricia Alexandre Notes Date Note Type Note [...] ................. ................. ................. ................. ................. ................. ..... Wellness Coach Note From Elena Chahal: 58y F c/o [...] ................. ..... Disposition: Cole Castro MD [address] [facility],[address], [place], [phone], JULIAN - CRIS CORTEZ 12/13/2023 13:48:03 12/14/2023 text/html CRC Nurse Triage Notes (Danelle Cotton): Reason For Request: Follow up from surgery /muscular spasms Chief Complaints: Pain PMH: Other Allergies: Unknown Comments: Flash Designer verified the member's name//address and phone number. Member is a 58 yr old female, estonian speaking PMH Son calling for member, had [...] reported s/s and [facility] [place]: spasms of right arm are chronic. [...] ................. ................. ................. ................. ................. ................. ........ Wellness Coach Note From Caden Bennett: Dispatched to the [...] ..... Disposition: Fulfilled Hafsa Angel MD [address] [facility],[address], [place], [address], [employer] 12/14/2023 21:13:02 OBGyn Episode No OBEpisode recorded.
--- OUTSIDE RECORDS SUMMARY | 2025-05-28 07:12 | XMS_ITS | Encounter Summary ---
Author Organization [facility] Address [address] [place] [address] Care Team Providers Care Job Press Feeder Name Role Phone Lex Rich MD Primary Care Pr ovider Reason for Referral * Consultation (Routine) - Authorized Specialty Diagnoses / Procedures Referred By Contac t Referred To Contact Endocrinology Diagnoses Localized osteoporosis without current pathological fracture Lex Rich MD [address] [place] [address] Phone: tel: fax: [address] Phone: tel: fax: Referral ID Status Reason Start Date Expiration Date Visits Requested Visits Authorized [id number] Authorized Specialty Services Required 05/17/2026 1 1 Encounter Details Date Type Department Care Team (Late st Contact Info) Description 05/16/2025 Results Follow-Up Adult Medicine [address] [phone] Christianne Vidales PA [address] [place] [phone] Social History Tobacco Use Types Packs/Day Years [...] care for your loved ones. For example, children teacher or elderly care for an older adult? [...] 11:00 AM EST Office Visit Adult Medicine [facility] 444 [place], [place] [phone] Lex Rich MD 444 [place], [place] 07/15/2025 9:00 AM EST Office Visit Pulmonology [facility] 175 [facility] 200 [place] [phone] Aysha Hernandez MD 230 [place] [address] 08/02/2025 1:00 PM EST Consult [facility] 175 [facility] 150 [place] [phone] Arpita Willis PA 230 [place] [phone] 08/06/2025 10:15 AM EST Office Visit Orthopedic Surgery [facility] 250 175 [facility] 250 [place] [phone] Diony Toledo DPM 230 [place] [address] Scheduled Referrals Name Type Priority Associated Diagnoses [...] documented as of this encounter Care Teams Job Press Feeder Relationship Specialty Start Date End Date Lex Rich MD [address] [place] [phone] PCP - General Internal Medicine 05/24/24 documented as of this encounter
--- OUTSIDE RECORDS SUMMARY | 2025-05-28 07:13 | XMS_ITS | Data Portability ---
Author Organization [facility], Main Office Address [address] [facility] [address] [place] [address] Care Team Providers Care Warehouse Associate Driver Name Role Phone [facility] OTHER ANKIT CRAWLEY Primary [...] rosis of coronary artery without angina pectoris [id number] 03 Active 2024 Not Available [facility] 13:30:08 Fall Active 2024 Not Available [facility] 13:31:11 Anxiety disorder 929850262 Active 2024 Not Available [facility] 16:50:45 Depressive disorder 46998952 Active 2024 Not Available [facility] 5 11:58:52 Abnormal Active 2024 Not Available [facility] 5 12:00:40 Muscle weakness 53078761 Active 2024 Not Available [facility] 5 11:10:39 Incoordina tion 105338516 Active 2024 Not Available [facility] 5 11:10:40 Difficulty walking 756465869 Active 2024 Not Available [facility] 5 11:11:53 Polymyalgi a rheumatica 24937064 Active 2024 Not Available [facility] 5 13:29:03 History of fall 250464251 Active 2024 DANIELLE QUEZADA CNP [address], [place], [address] , [facility] 5 13:02:11 Coronary arterioscl erosis 49148363 Active 2024 DANIELLE QUEZADA CNP [address], [address], [place], [address] , [facility] 5 13:02:14 Idiopathic pulmonary fibrosis 968971430 Active 2024 DANIELLE QUEZADA CNP [address], [address], [place], [address] , [facility] 5 13:02:17 Insomnia 210365172 Active 2024 DANIELLE QUEZADA CNP [address], [address], [place], [address] , [facility] 5 13:02:19 Mixed anxiety and depressive disorder 076841809 Active 2024 DANIELLE QUEZADA CNP [address], [address], [place], [address] , [facility] 5 13:02:20 Hyperglyce deven 08634514 Active 2024 DANIELLE QUEZADA CNP [address], [address], [place], [address] , [place] - [facility] 5 13:02:24 Hyperlipid emia 47893110 Active 2024 DANIELLE QUEZADA, HEAD WRESTLING COACH [address] [facility], [address], [place], [address] , [place] - [facility] 13:02:26 Problem Notes None recorded. Medical [...] Address Organization Details Last Updated DateTime 5 99636.6 3 g 96 /min 18 /min 98.2 [degF] 96 % 96 % 122/79 mm[Hg] DANIELLE QUEZADA, REINA [address] [facility], [address], [place], [address], [place] - [facility] 5 12:08:32 Date Recorded Body weight Body mass index (BMI) Body height Heart rate Respiratory rate Body temperature Oxygen saturation Oxygen saturation in Arterial blood by Pulse oximetry Systolic And Diastolic Provider Name and Address Organization Details Last Updated DateTime 5 25905 g 26.6 kg/m2 152.4 cm 104 /min 16 /min 97.7 [degF] 97 % 97 % 118/72 mm[Hg] Harper Rosales MD [address] [facility], [facility] [address], [place], [address], [facility] 5 15:05:33 Date Recorded Body height Heart rate Respiratory rate Body temperature Oxygen saturation Oxygen saturation in Arterial blood by Pulse oximetry Systolic And Diastolic Provider Name and Address Organization Details Last Updated DateTime 5 152.4 cm 96 /min 18 /min 98 [degF] 98 % 98 % 118/72 mm[Hg] YARA CABALLERO [address] [facility], [address], [place], [address], [facility] 5 19:41:13 Date Recorded Body height Body mass index (BMI) Body weight Heart rate Respiratory rate Body temperature Oxygen saturation Oxygen saturation in Arterial blood by Pulse oximetry Systolic And Diastolic Provider Name and Address Organization Details Last Updated DateTime 5 152.4 cm 26.5 kg/m2 63971.4 8 g 83 /min 18 /min 97.6 [degF] 95 % 95 % 126/69 mm[Hg] YARA CABALLERO [address] [facility], [facility] [address], [place], [address], [facility] 5 11:10:53 Social History Question Answer Notes LastModified by Organizat ion Details LastModified Time Tobacco Smoking Status Never Smoker DANIELLE QUEZADA CNP [address] [facility], [facility] [address], [place], [address], [facility] 09/27/2024 11:20:38 Do You Have An Advance Directive? Yes Information not available 10/02/2024 What Is Your Code Status? DNI No G-tube Information not available 09/27/2024 Where Do You Live? Apartment Lives Alone, 3rd Floor, No Elevator. Information not available 10/02/2024 Legal Guardian? No Informati on not available 10/02/2024 Do You Have A Medical Power Of Pipe Tester? Yes Information not available 10/02/2024 What Was [...] Recorded Time Tdap 04/19/2023 completed Tarsha Segovia [facility] 09/27/2024 13:01:36 influenza, unspecified formulation 04/19/2023 completed Tarshalaure Segovia [facility] 09/27/2024 13:01:50 Past Encounters Encounter ID Performer Location Encounter Start Date Encounter Closed Date Diagnosis/Indication Diagnosis SNOMED-CT Code Diagnosis ICD10 Code Diagnosis IMO Codes Diagnosis Note [id number] DANIELLE QUEZADA CNP [facility] [address] [place] [address] 09/27/2024 10:45:11 10/02/2024 13:55:38 Polymyalgia rheumatica 37805390 M35.3 Flare up with bilateral lower extremity [...] s/s of flare up. History of fall 69026355 9 Z91.81 S/t PMR flare up and weakness.P T and OT for strength, gait training and safety.Mor se screen on 09/27/24, scored high risk. Idiopathic pulmonary fibrosis 865225260 J84.112 OFev 150 mg BID.Contin ue monitor. Insomnia 188968759 G47.0 0 Prazosin 1 mg qHS.Trazod one 100 mg qHS.Stable , continue monitor. Coronary arteriosclerosis 67405053 I25.10 Isosorbide mononitrat e 30 mg ER daily.Resu me aspirin 81 mg daily.VSS, continue to monitor. Mixed anxi ety and depressive disorder 398689907 F41.8 Buspirone 7.5 BID.Mood is stable, continue monitor.Ps y therapy PRN Hyperglycemia 90320085 R 73.9 Likely due to steroid.Gl ucose stable, will continue monitor. Hyperlipidemia 33083028 E78.5 Continue atorvastat in 40 mg daily. [id number] Harper Rosales MD [facility] [address] [place] [address] 10/02/2024 13:38:53 10/04/2024 11:04:53 Polymyalgia rheumatica 22187307 M35.3 Per inpt notes, not completely c/w [...] with rheum as planned. History of fall 69941526 9 Z91.81 PT/OT as above.Hali tor for safety. Coronary arteriosclerosis 35146254 I25.10 No recent sxs.Contin ue isosorbide mononitrat e 30 mg ER qd, ASA 81 mg qd and atorvastat in 40 mg qd.Monitor for cardio sxs.F/U with cardio as planned. Idiopathic pulmonary fibrosis 668982090 J84.112 Continue Ofev 150 mg BID.Monito r resp status.F/U with pulmonary as planned. Insomnia 320808136 G47.0 0 Meds as above,Hali tor sleep patterns. Mixed anxi ety and depressive disorder 769536077 F41.8 F32.89 Mood good today.Cont inue buspirone 7.5 BID, prazosin 1 mg qhs and trazadone 100 mg qhs.Mood is stable, continue monitor.Ps y therapy PRN Hyperglycemia 19073383 R 73.09 Glucose only mildly elevated here.With HgA1C of 6.4 inpt.Likel y due to steroids.C ontinue to encourage healthy eating.Mon itor as outpt. Hyperlipidemia 93915857 E78.49 Continue atorvastat in 40 mg qdMonitor labs as outpt. [id number] [place] [address] 10/05/2024 18:12:50 10/11/2024 15:02:23 Polymyalgia rheumatica 43262190 M35.3 continues with burning pain in finger joint and legswill increase gabapentin to 300 mg TIDCurrent ly is on prednisone taper.15 mg daily for 2 weeks, then wean 2.5 mg q 2 weekly.Praveen lofen 10 mg TID for pain.Ayry nue monitor the pain and effectiven ess, [id number] YARA CABALLERO [address] [place] [address] 10/12/2024 10:28:50 10/16/2024 10:09:49 Polymyalgia rheumatica 20127327 M35.3 polymyalgi a rheumatica -Per inpt notes, [...] with PCP as planned History of fall 36384041 9 Z91.81 Monitor for safety. Coronary arteriosclerosis 39356550 I25.10 Continue isosorbide mononitrat e 30 mg ER qd, ASA 81 mg qd and atorvastat in 40 mg qd.Monitor for cardio sxs.F/U with cardio as planned. Idiopathic pulmonary fibrosis 660340016 J84.112 Continue Ofev 150 mg BID.Monito r resp status.F/U with pulmonary as planned. Mixed anxi ety and depressive disorder 834003874 F41.8 F32.89 Continue buspirone 7.5 BID, prazosin 1 mg qhs and trazadone 100 mg qhs. Insomnia 508753412 G47.0 0 Meds as above, Hyperglycemia 36733040 R 73.09 Glucose only mildly elevatedWi th HgA1C of 6.4 inpt.Likel y due to steroids.C ontinue to encourage healthy eating.Mon itor as outpt. Hyperlipidemia 74739578 E78.49 Continue atorvastat in 40 mg qdMonitor labs as outpt. Health Concerns Section Related Observation LastModified by Organization Detai ls LastModified Time None Recorded Concern Status LastModified by Organization Details LastModified Time None Recorded Advance Directives Directive Y: Payers Insurance Date Sequence Insurance Name Policy Number Policy Haywood Covered Member ID Haywood Member ID Guarantor Name 10/12/2024 1 [facility] - DOS ON OR AFTER 2022 - MEDICARE ADVANTAGE [place] (MEDICARE REPLACEMENT/ADV ANTAGE - PPO) Patricia Alexandre [id number] Patricia Alexandre Notes Date Note Type Note Provider Name and Address Organization Details Recorded Time 09/27/2024 text/html Patricai is 58 y/o a B[place]ian-speaking female admitted to [facility] on 09/26/24 from [facility]. PMH significant for Polymyalgia rheumatica, positive MADY, and RF, idiopathic pulmonary fibrosis, CAD, HLD and depression. Pt presented to [facility] ER on 09/23/24 due to increase increased [...] on 09/27/24, scored high risk. DANIELLE QUEZADA, HEAD WRESTLING COACH [address] [facility], [address], [place], [address], [facility] 09/27/2024 15:11:28 10/02/2024 text/html This is a 58 yo woman who is here for rehab after an acute hospitalization for a severe PMR flare causing inability to walk.She also has mod/severe ILD at baseline causing chronic SOB and asthenia. She presented to the [facility] ED on 09/23 due to increasing leg pain and weakness.She had been inpt at [facility] 07/31-08/07 for similar sxs and was txed with solumedrol and then put on prednisone taper. She had been doing well at home until about a week [employer] when her left leg gave out and [...] gabapentin on 09/27.I see her with a lebanese speaking staff member.She tells me burning pain is a little better, but still bad.No other c/o. Her PMH includes PMR with + MADY and RF, idiopathic pulmonary fibrosis, CAD, elevated blood sugars when on prednisone (HgA1C 6.4), HLD and insomnia, anxiety/depression. Harper Rosales MD [address] [facility], [address], [place], [address], [facility] 10/02/2024 22:44:50 10/05/2024 text/html ROS as noted [...] continues to be bothersome. YARA CABALLERO [address] [facility], [address], [place], [address], [place] - [facility] 10/10/2024 19:41:49 10/12/2024 text/html Discharge Summary Summarized from MD Tao This is a 58 yo woman with a PMH includes PMR with + MADY and RF, idiopathic pulmonary fibrosis, CAD, elevated blood sugars when on prednisone (HgA1C 6.4), HLD and insomnia, anxiety/depression. Admitted to [facility] for rehab after an acute hospitalization for a severe PMR flare causing inability to walk.She also has mod/severe ILD at baseline causing chronic SOB and asthenia. She presented to the [facility] ED on 09/23 due to increasing leg pain and weakness.She was admitted due to being unable to bear wt on legs due to pain.She was txed with solumedrol and then transitioned to po prednisone to do a prolonged taper. She had been inpt at [facility] 07/31-08/07 for similar sxs and was txed [...] and [facility] with services. YARA CABALLERO [address] [facility], [address], [place], [address], [facility] [employer] 10/12/2024 11:43:33 OBGyn Episode No OBEpisode recorded.
--- OUTSIDE RECORDS SUMMARY | 2025-05-28 07:13 | XMS_ITS | Clinical Summary ---
Author Organization [facility] [employer] Address [address] [place], [place] [address] Phone Care Team Providers Care Care Transition Mgr Name Role Phone Lex Rich MD Primary [...] mouth 1 (one) time each day. Active albuterol 2.5 mg /3 mL (0.083 %) nebulizer solutionIndicatio ns:ILD (interstitial lung disease) ([facility] V24, [facility] V28) Take 3 mL (2.5 [...] polyneuropathy, without long-term current use of insulin ([facility] V24, [facility] V28) TAKE 1 CAPSULE BY MOUTH THREE TIMES A DAY 270 capsule 025 Active baclofen (LIORESAL) 10 mg tabletIndications :Polymyalgia rheumatica ([facility] V24) TAKE 1 TABLET BY MOUTH THREE TIMES A DAY 270 tablet 1 025 Active gabapentin (NEURONTIN) 300 mg capsuleIndication s:Type 2 diabetes mellitus with diabetic polyneuropathy, without long-term current use of insulin ([facility] V24, [facility] V28) Take 1 capsule (300 mg total) by mouth 3 (three) times a day. 270 each 025 2024 Discontinued baclofen (LIORESAL) 10 mg tabletIndications :Polymyalgia rheumatica ([facility] V24) Take 1 tablet (10 [...] complication, without long-term current use of insulin ([facility] V24, [facility] V28) 10/21/2024 Assessment & Plan (11/22/2024 1:27 [...] Future Bilateral calcaneal spurs 10/19/2024 Polymyalgia rheumatica ([facility] V24) 10/18/2024 Assessment & Plan (11/22/2024 1:27 [...] incisional pain. 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 Will follow-up with the thoracic surgical department moving forward on a as needed basis and to contact the thoracic surgery department should she have any further questions or concerns in the future. Assessment & Plan (02/22/2025 12:02 PM EDT): Continue pulmonology follow-up both locally and in [place]. She knew continue prednisone and Ofev as prescribed by her work over rig operator. Hyperlipidemia 06/27/2023 Assessment & Plan (02/22/2025 12:02 [...] 05/16/2025 11:45 AM EDT Office Visit Pulmonology [facility] [address] [phone] Aysha Hernandez MD ILD (interstitial lung disease) ([facility] V24, [facility] V28) (Primary Dx); Connective tissue disease ([facility] V24) 05/16/2025 Results Follow-Up Adult Medicine [address] [phone] Christianne Vidales PA 05/10/2025 10:28 AM EDT - 05/10/2025 11:59 PM EDT Hospital Encounter Bone Density - [address] [phone] Osteopenia, unspecified location Discharge Disposition: Home or Self Care 04/11/2025 2:00 PM EDT Office Visit Pulmon[address] [phone] Aysha Hernandez MD ILD (interstitial lung disease) ([facility] V24, [facility] V28) (Primary Dx) 04/04/2025 10:00 AM EDT Office Visit Orthopedic Surgery [facility] [address] [phone] Diony Toledo DPM Rheumatoid arthritis involving both feet with positive rheumatoid factor ([facility] V24, [facility] V28) (Primary Dx); Follow-up exam; Diabetic mononeuropathy simplex ([facility] V24, [facility] V28); Neuritis 03/19/2025 8:45 AM EDT Office Visit Pulmonology [facility] [address] [phone] Aysha Hernandez MD ILD (interstitial lung disease) ([facility] V24, [facility] V28) (Primary Dx); Pulmonary fibrosis ([facility] V24, [facility] V28) 03/13/2025 10:41 AM EDT - 03/13/2025 11:59 PM EDT Hospital Encounter Radiology Department - [address] [phone] Encounter for screening mammogram for breast cancer Discharge Disposition: Home or Self Care 03/12/2025 2:43 PM EDT - 03/12/2025 11:59 PM EDT Hospital Encounter Radiology Department - [address] [phone] Pressure in head Discharge Disposition: Home or Self Care 02/26/2025 Lab Requisition [facility] - Main Lab [address] [facility] [place] [address] Susanne Cohen MD Pulmonary fibrosis, unspecified ([facility] V24, [facility] V28) 02/25/2025 8:37 AM EDT - 02/25/2025 11:59 PM EDT Hospital Encounter Radiology Department - [address] [phone] Right upper quadrant abdominal pain Discharge Disposition: Home or Self Care 02/25/2025 Telephone Adult Medicine [address] [phone] Ava Cronin, RN from Last 3 Months Immunizations Immunization Administration [...] SURGERY CARDIAC CATHETERIZATION DONE ON 04/24/2024 AT [facility] INDICATIONS CHEST PAIN Medical History [...] for your loved ones. For example, child care provider or elderly care for an older adult? [...] Ectopic Multiple Livin g Live Births [birth year] 1 Date Outcome GA Total Labor Labor/2nd/3rd [...] 11:00 AM EST Office Visit Adult Medicine [address] [phone] Lex Rich MD [address] [place] [address] 07/15/2025 9:00 AM EST Office Visit Pulmonology - [place] [facility] [address] [place] [phone] Aysha Hernandez MD [address] [place] [phone] 08/02/2025 1:00 PM EST Consult [facility] - [place] [facility] [address] [place] [phone] Arpita Willis PA [address] [place] [phone] 08/06/2025 10:15 AM EST Office Visit Orthopedic Surgery - [place] 250 [address] [facility] 250 [place] [phone] Diony Toledo DPM [address] [place] [phone] Health Maintenance Due Date Last Done Comments [...] positive rheumatoid factor (CMS/HCC V24, CMS/HCC V28) INJECTION TENDON OR LIGAMENT Routine 04/04/2025 [...] use of insulin (CMS/HCC V24, CMS/HCC V28) LIPID PANEL WITH REFLEX TO DIRECT [...] to have osteoporosis by WHO criteria. The [facility] Department of Internal Medicine recommends using National [...] alternative screening schedule based on juany Iraheta., [facility] August 12, 2011 for patients [...] Signed Date: 05/13/2025 12:50 ET Workstation ID: [id number] Transcribed By: Self Edit Transcribed Date: 05/13/2025 [...] to have osteoporosis by WHO criteria. The [facility] Department of Internal Medicine recommendsusing National Osteoporosis [...] alternative screening schedule based on [facility]., [facility] for patients with osteopenia (based on [...] Signed Date: 05/13/2025 12:50 ET Workstation ID: [id number] Transcribed By: Self Edit Transcribed Date: 05/13/2025 12:49 ET us Lex Rich MD IM DXA PROCEDUR ES Final Result * (ABNORMAL) CBC auto differential (04/11/2025 2:47 PM EDT) WBC 9.5 4.8 - 10.8 K/mcL LAB [facility] RBC 4.30 3.80 - 4.80 M/mcL LAB HEMETOLOGY METHOD [facility]25 [facility] Hemoglobin 12.8 11.5 - 16.0 g/dL LAB HEMETOLOGY METHOD 04/11[facility]2025 6[facility] Hematocrit 40.2 35.0 - 47.0 % LAB HEMETOLOGY METHOD 04/11/2025 6[facility] MCV 93.9 79.0 - 98.0 FL LAB HEMETOLOGY METHOD 04/11/2025 6:27 PM [facility] MCH 29.9 27.0 - 32.0 pcg LAB HEMETOLOGY METHOD 04/11/2025 6:27 PM [facility] MCHC 31.8(L) 32.0 - 37.0 g/dL LAB HEMETOLOGY METHOD 04/11/2025 6:27 PM [facility] RDW 14.8 11.0 - 15.0 % LAB HEMETOLOGY METHOD 04/11/2025 6:27 PM [facility] Platelets 526(H) 130 - 400 K/mcL LAB HEMETOLOGY METHOD 04/11/2025 6:27 PM [facility] MPV 9.5 7.0 - 11.0 FL LAB HEMETOLOGY METHOD 04/11/2025 6:27 PM [facility] NRBC 0.0 <1.0 % LAB HEMETOLOGY METHOD 04/11/2025 6:27 PM [facility] NRBC Absolute 0.00 <0.10 K/mcL LAB HEMETOLOGY METHOD 04/11/2025 6:27 PM [facility] Neutrophils Relative 68.7 % LAB HEMETOLOGY METHOD 04/11/2025 6:27 PM [facility] Lymphocytes Relative 25.8 % LAB HEMETOLOGY METHOD 04/11/2025 6:27 PM [facility] Monocytes Relative 3.9 % LAB HEMETOLOGY METHOD 04/11/2025 6:27 PM [facility] Eosinophils Relative 0.1 % LAB HEMETOLOGY METHOD 04/11/2025 6:27 PM [facility] Basophils Relative 0.9 % LAB HEMETOLOGY METHOD 04/11/2025 6:27 PM [facility] Immature Granulocytes Relative 0.6 % LAB HEMETOLOGY METHOD 04/11/2025 6:27 PM [facility] Neutrophils Absolute 6.55 1.50 - 7.00 K/mcL LAB HEMETOLOGY METHOD 04/11/2025 6:27 PM [facility] Lymphocytes Absolute 2.46 1.00 - 5.00 K/mcL LAB HEMETOLOGY METHOD 04/11/2025 6:27 PM [facility] Monocytes Absolute 0.37 0.20 - 1.00 K/mcL LAB HEMETOLOGY METHOD 04/11/2025 6:27 PM [facility] Eosinophils Absolute 0.01 0.00 - 0.50 K/mcL LAB HEMETOLOGY METHOD 04/11/2025 6:27 PM [facility] Basophils Absolute 0.09 0.00 - 0.20 K/mcL LAB HEMETOLOGY METHOD 04/11/2025 6:27 PM [facility] Immature Granulocytes Absolute 0.06(H) 0.00 - 0.03 K/mcL LAB HEMETOLOGY METHOD 04/11/2025 6:27 PM [facility] Blood Venous blood specimen / Unknown Venipuncture / Unknown 04/11/2025 2:47 PM EDT 04/11/2025 2:47 PM EDT us Aysha Hernandez MD LAB BLOOD ORDERABLES Final Resul t [facility] [address] [place] [address], [place] [phone] * XR Foot 3+ Views bilat (04/04/2025 [...] mg/mL Informed Consent: Site: Foot ligament tendon us Diony Toledo DPM IN CLINIC/BEDSIDE ORDERAB LES Final Result * MG Mammo Digital Screening w Nemesio bilat (03/13/2025 10:57 AM EDT) Anatomical Region Laterality Modality Breast Bilateral Mammography 03/14/2025 11:2 3 AM EDT Impressions 03/14/2025 11:27 AM EDT Benign. BI-RADS CATEGORY: 1 - NEGATIVE RECOMMENDATION: Screening bilateral mammogram is recommended in 1 year. Mammo Location: [facility], [address] [place] [address], [phone], . -------- FINAL REPORT -------- Dictated By: Maya Garcia Dictated Date: 03/14/2025 11:23 ET Assigned Physician: Maya Garcia Reviewed and Electronically Signed By: Maya Garcia Signed Date: 03/14/2025 11:27 ET Workstation ID: [id number] Transcribed By: Self Edit Transcribed Date: 03/14/2025 [...] is recommended in 1 year. Mammo Location: [facility], [address] [place] [address], [id number], . -------- FINAL REPORT -------- Dictated By: Maya Garcia Dictated Date: 03/14/2025 11:23 ET Assigned Physician: Maya Garcia Reviewed and Electronically Signed By: Maya Garcia Signed Date: 03/14/2025 11:27 ET Workstation ID: [id number] Transcribed By: Self Edit Transcribed Date: 03/14/2025 [...] Signed Date: 03/12/2025 17:45 ET Workstation ID: [id number] Transcribed By: Self Edit Transcribed Date: 03/12/2025 [...] Signed Date: 03/12/2025 17:45 ET Workstation ID: [id number] Transcribed By: Self Edit Transcribed Date: 03/12/2025 17:33 ET Lex Rich MD [facility] [place] PROCEDUR ES Final Result * Historical Pathology Case (02/26/2025 1:00 PM EDT) Final Diagnosis This case was created to document slides being sent to [facility] from a historical case accessioned in our prior laboratory information system. The report is available upon request. No additional diagnosis is rendered by this institution at this time. 05/08/2025 11:19 AM EDT EXTERNAL LAB (NON-INTERFAC ED) at 1119 EDT Clinical Information Historical case created for requests for materials from outside institutions. 05/08/2025 11:19 AM EDT [facility] Gross Description A. Lung, Right Upper Lobe, : [id number] Whole case (5) sent JS/KK 05/08/2025 11:19 AM EDT [facility] Disclaimer Unless otherwise specified, all tissue is 10% NB formalin fixed and paraffin embedded. 05/08/2025 11:19 AM EDT [facility] Tissue Structure of upper lobe of right lung / Unknown 02/26/2025 1:00 PM EDT 02/26/2025 1:00 PM EDT us Susanne Cohen MD LAB PATHOLOGY ORDERABLES Final R esult EXTERNAL LAB (NON-INTERFACED) [facility] [address] [place] [address], [place] [phone] * US Abdomen Limited (02/25/2025 9:36 AM EDT) Anatomical Region Laterality Modality Body Ultrasound 02/25/2025 10:0 3 AM EDT Impressions 02/25/2025 10:05 AM EDT Hepatic steatosis. -------- FINAL REPORT -------- Dictated By: Maya Garcia Dictated Date: 02/25/2025 10:03 ET Assigned Physician: Maya Garcia Reviewed and Electronically Signed By: Maya Garcia Signed Date: 02/25/2025 10:05 ET Workstation ID: [id number] Transcribed By: Self Edit Transcribed Date: 02/25/2025 [...] Signed Date: 02/25/2025 10:05 ET Workstation ID: [id number] Transcribed By: Self Edit Transcribed Date: 02/25/2025 10:03 ET us Lex Rich MD [facility] US PROCEDURE S Final Result * Lipid panel with reflex to direct LDL (02/25/2025 9:14 AM EDT) Cholesterol 181 0 - 200 mg/dL LAB CHEMISTRY METHOD 02/25/2025 2:45 PM EDT [facility] Triglycerides 61 0 - 150 mg/dL LAB CHEMISTRY METHOD 02/25/2025 2:45 PM EDT [facility] HDL 72 >=40 mg/dL LAB CHEMISTRY METHOD 02/25/2025 2:45 PM EDT [facility] LDL Calculated 97 0 - 100 mg/dL LAB CHEMISTRY METHOD 02/25/2025 2:45 PM EDT [facility] VLDL Cholesterol Tamir 12.2 mg/dL LAB CHEMISTRY METHOD 02/25/2025 2:45 PM EDT [facility] Non HDL Chol. (LDL+VLDL) 109 <145 mg/dL LAB CHEMISTRY METHOD 02/25/2025 2:45 PM EDT [facility] Chol/HDL Ratio 2.5 0.0 - 4.4 LAB CHEMISTRY METHOD 02/25/2025 2:45 PM EDT [facility] Blood Venous blood specimen / Unknown Venipuncture / Unknown 02/25/2025 9:14 AM EDT 02/25/2025 9:14 AM EDT Lex Rich MD LAB BLOOD ORDERA BLES Final Result [facility] [address] [place] [address], [place] [phone] * Microalbumin creatinine urine ratio (02/25/2025 9:14 AM EDT) Creatinine, Urine 43.0 mg/dL LAB CHEMISTRY METHOD 02/25/2025 11:30 AM EDT [facility] Microalb, Ur <5.0 0.0 - 29.0 mg/L LAB CHEMISTRY METHOD 02/25/2025 11:30 AM EDT [facility] Microalb/Creat Ratio <12 <30 mg/g creat LAB CHEMISTRY METHOD 02/25/2025 11:30 AM EDT [facility] Urine Urine specimen obtained by clean catch procedure / Unknown Non-blood Collection / Unknown 02/25/2025 9:14 AM EDT 02/25/2025 9:14 AM EDT Lex Rich MD LAB URINE ORDERA BLES Final Result Performing Organization Address City/[facility]/ZIP Co de Phone Number [facility] [address] [place] [address], [place] [phone] * (ABNORMAL) Helicobacter pylori breath test (02/25/2025 9:14 AM EDT) H Pylori Breath Test Positive( A) Negative LAB CHEMISTRY METHOD 02/25/2025 10:43 AM EDT [facility] Breath Oral cavity structure / Unknown Non-blood Collection / Unknown 02/25/2025 9:14 AM EDT 02/25/2025 9:14 AM EDT Lex Rich MD LAB BODY FLUIDS AND STOOLS ORDERABLES Final Result [facility] [address] [place] [address], [place] [phone] * Vitamin D 25 hydroxy (02/25/2025 9:14 AM EDT) Vit D, 25-Hydroxy 37.7 30.0 - 80.0 ng/mL LAB CHEMISTRY METHOD 02/25/2025 3:28 PM EDT [facility] Blood Venous blood specimen / Unknown Venipuncture / Unknown 02/25/2025 9:14 AM EDT 02/25/2025 9:14 AM EDT Lex Rich MD LAB BLOOD ORDERA BLES Final Result [facility] [address] [place] [address], [place] [phone] * Lipase (02/25/2025 9:14 AM EDT) [facility] Lipase 57 13 - 75 unit/L LAB CHEMISTRY METHOD 02/25/2025 2:25 PM EDT [facility] Blood Venous blood specimen / Unknown Venipuncture / Unknown 02/25/2025 9:14 AM EDT 02/25/2025 9:14 AM EDT Lex Rich MD LAB BLOOD ORDERA BLES Final Result Performing Organization Address [facility]/ZIP Co de Phone Number [facility] [address] [place] [address], [place] [phone] * Hemoglobin A1c (02/25/2025 9:14 AM EDT) [facility] Hemoglobin A1C 5.9 <6.5 % LAB CHEMISTRY METHOD 02/25/2025 12:22 PM EDT [facility] Mean Bld Glu Estim. 123 mg/dL LAB CHEMISTRY METHOD 02/25/2025 12:22 PM EDT [facility] Blood Venous blood specimen / Unknown Venipuncture / Unknown 02/25/2025 9:14 AM EDT 02/25/2025 9:14 AM EDT Lex Rich MD LAB BLOOD ORDERA BLES Final Result Performing Organization Address City/[facility]/ZIP Co de Phone Number [facility] [address] [place] [address], [place] [phone] * Amylase (02/25/2025 9:14 AM EDT) [facility] Amylase 84 25 - 115 unit/L LAB CHEMISTRY METHOD 02/25/2025 1:48 PM EDT [facility] Blood Venous blood specimen / Unknown Venipuncture / Unknown 02/25/2025 9:14 AM EDT 02/25/2025 9:14 AM EDT Lex Rich MD LAB BLOOD ORDERA BLES Final Result [facility] [address] [place] [address], [place] [phone] * (ABNORMAL) Comprehensive metabolic panel (02/25/2025 9:14 AM EDT) [facility] Sodium 137 133 - 145 mmol/L LAB CHEMISTRY METHOD 02/25/2025 2:45 PM [facility] Potassium 5.0 3.5 - 5.5 mmol/L LAB CHEMISTRY METHOD 02/25/2025 2:45 PM [facility] Chloride 104 96 - 110 mmol/L LAB CHEMISTRY METHOD 02/25/2025 2:45 PM [facility] CO2 28 21 - 32 mmol/L LAB CHEMISTRY METHOD 02/25/2025 2:45 PM [facility] Anion Gap 5 3 - 11 LAB CHEMISTRY METHOD 02/25/2025 2:45 PM [facility] Glucose 120(H) 70 - 100 mg/dL LAB CHEMISTRY METHOD 02/25/2025 2:45 PM [facility] BUN 12 5 - 25 mg/dL LAB CHEMISTRY METHOD 02/25/2025 2:45 PM [facility] Creatinine 0.72 0.50 - 1.10 mg/dL LAB CHEMISTRY METHOD 02/25/2025 2:45 PM EDT [facility] eGFR 97 >=60 mL/min/1. 73m2 LAB CHEMISTRY METHOD 02/25/2025 2:45 PM T [facility] Comment:Calculation based on the Chronic Kidney Disease Epidemiology Collaboration (CKD-EPI) equation refit without adjustment for race. BUN/Creatinine Ratio 16.7 LAB CHEMISTRY METHOD 02/25/2025 2:45 PM EDT [facility] Calcium 9.6 8.5 - 10.5 mg/dL LAB CHEMISTRY METHOD 02/25/2025 2:45 PM [facility] AST (SGOT) 18 10 - 42 unit/L LAB CHEMISTRY METHOD 02/25/2025 2:45 PM [facility] ALT (SGPT) 37 10 - 60 unit/L LAB CHEMISTRY METHOD 02/25/2025 2:45 PM [facility] Alkaline Phosphatase 98 42 - 121 unit/L LAB CHEMISTRY METHOD 02/25/2025 2:45 PM [facility] Total Protein 7.1 6.0 - 8.0 g/dL LAB CHEMISTRY METHOD 02/25/2025 2:45 PM [facility] Albumin 3.2 3.2 - 5.0 g/dL LAB CHEMISTRY METHOD 02/25/2025 2:45 PM [facility] Total Bilirubin 0.3 0.0 - 1.4 mg/dL LAB CHEMISTRY METHOD 02/25/2025 2:45 PM [facility] Blood Venous blood specimen / Unknown Venipuncture / Unknown 02/25/2025 9:14 AM EDT 02/25/2025 9:14 AM EDT us Lex Rich MD LAB BLOOD ORDERA BLES Final Result [facility] [address] [place] [address], [place] [phone] * Hepatitis C antibody (07/12/2024 10:05 AM EST) Pathologist [facility] Hepatitis C Antibody Negative Negative LAB CHEMISTRY METHOD 07/12/2024 1:27 PM EST [facility] Blood Venous blood specimen / Unknown Venipuncture / Unknown 07/12/2024 10:05 AM EST 07/12/2024 10:05 AM EST Lex Rich MD LAB BLOOD ORDERA BLES Final Result [facility] [address] [place] [address], [place] [phone] * Colonoscopy (09/21/2023) Pathologist [facility] Colonoscopy no interpreta tion,abstr acted Anatomical Region Laterality Modality Other Historical Provider HEALTH MAINTENANCE Final Result from Last 3 Months or Most Recently Relevant to Health Maintenance Insurance [employer] MED[employer] Member Subscriber Plan / Payer (Ef fective 2022-Present) Name:MEHRAN ALEXANDRE Relation to Subscriber:Self Name:Mehran Alexandre Payer ID:[id number] Group ID:[id number] Type:Not on file Address: [place] [facility] [place] [id number] Care Teams Care Transition Mgr Relationship Specialty Start Date End Date Lex Rich MD [address] [place] [address] PCP - General Internal Medicine 05/24/24
== END 2025-05-28 07:10 | disposition home or self-care (01) ==
LOC: CF 07:09
PROVIDERS: Visit Provider Anesthesiology
DX: M47.816 Spondylosis without myelopathy or radiculopathy, lumbar region (principal)
CPT/HCPCS: 64493; 64494; J2003; J2795; Q9967

== ENCOUNTER 2025-05-28 13:14 | Outpatient (AMB) | payer OTHER, SELFPAY ==
[2025-05-28 13:24] VITALS: BP 106/70; PULSE 96; RESP 16; O2SAT 98; BMI 22.1
--- NOTE | 2025-05-28 13:24 | A.OFFVIS_ITS ---
Vital Signs 05/28/25 13:24 05/28/25 14:23 Height 5 ft Weight 113 lb BMI 22.1 BP 106/70 113/70 Blood Pressure Location Lt brachial Lt brachial Position Sitting Sitting Respiration 16 16 Pulse 96 92 Pulse Source Pulse Oximeter Pulse Oximeter Pulse Oximetry (%) 98 99 Oxygen Delivery Method Room Air Room Air Intake Visit Reasons: Bilateral Diagnostic L3-L4-DR L5 MBB Allergies No Known Allergies Allergy (Verified 05/31/25 09:29) [facility] Medical History (Updated 06/03/25 @ 15:10 by Kane Dwyer MD) CAD (coronary artery disease) Idiopathic pulmonary fibrosis Polymyalgia rheumatica Social History Household Members: None Housing: Apartment Do you presently have visiting nurse or other home services: No (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 ? ?Informed consent was explained to the patient. All questions were explained and? answered.? The patient was taken inside the operating room where he was positioned prone on the operating table. Time-out was performed delineating correct site, side, the nature of the procedure, patient's allergy, . All operating room staff was participating in OR time-out procedure. ? ? The lower back was prepped with ChloraPrep and draped with sterile utility towels.? C-arm was brought over the operating field and sq picture of L4-, L5 vertebra and S1 AREA were delineated on the screen.? Point of interest were delineated as confluence of superior articular process of L4 and L5 vertebra bilaterally with corresponding transverse processes as well as confluence of the sacral alae bilaterally with superior articular p rocess of S1.? The projection of the point of interest to the skin were injected with the small amount of local anesthetic lidocaine 2% mixed with ropivacaine 0.5% 1-1 approximately 1 cc.? After that 22 gauge 3.5 inch spinal needle was driven sequentially to the points of interest in tunnel vision fashion. After needles gently contacted the bone at the point of interests the needle was injected with small amount of the contrast.? The injection of the contrast did not demonstrate any intravascular or intrathecal spread of the contrast.? After that injection of the? ropivacaine 0.5%-1cc was performed at each needle location.?After that the needles were removed and Bandaids were applied. Orders: Orders FL guidance in treatment room 05/28/25 M47.816 - Spondylosis without myelopathy or radiculopathy, lumbar region Coding Level of Care Code Procedure Only Diagnoses Spondylosis of lumbar region without myelopathy or radiculopathy M47.816
[2025-05-28 14:23] VITALS: BP 113/70; PULSE 92; RESP 16; O2SAT 99
--- OUTSIDE RECORDS SUMMARY | 2025-05-28 16:10 | XMS_ITS | Encounter Summary ---
Author Organization [employer] Address [address] [facility] 7t [place] [address] Care Team Providers Care Manufacturing Analyst Name Role Phone Unavailable Primary Care Provider Unavailabl e Reason for Visit * Reason Onset Date Comments New Patient 04/12/2023 Encounter Details Date Type Department Care Team (Late st Contact Info) Description 04/12/2023 Telephone [facility] [address] [place] [address] Oumar Chen MD 230 [place] [address] New Patient Social History Tobacco Use Types [...] PM EDT Tc to pt, to offer Silk Screen Printer Helper appt, No answer answer, could not leave voicemail due to not being set up . documented in this encounter Plan of Treatment Not on file documented as of this encounter Visit Diagnoses Not on filedocumented in this encounter
--- OUTSIDE RECORDS SUMMARY | 2025-05-28 16:10 | XMS_ITS | Clinical Summary ---
Author Organization [employer] Address [address] [facility] 7t [place] [address] Care Team Providers Care Turnstile Attendant Name Role Phone Unavailable Primary Care Provider [...] patient's age to complete this topic Insurance [facility] STANDARD [place] [phone]
--- OUTSIDE RECORDS SUMMARY | 2025-05-28 16:10 | XMS_ITS | Encounter Summary ---
Author Organization [facility] Address [address] [place] [address] Care Team Providers Care Mine Inspector Federal Name Role Phone Lex Rich MD Primary Care Pr ovider Encounter Details Date Type Department Care Team ([facility] st Contact Info) Description 02/26/2025 Lab Requisition [facility] - Main Lab [address] [facility] [place] [address] Susanne Cohen MD 230 [place] [phone] Pulmonary fibrosis, unspecified (CMS/HCC V24, CMS/HCC V28) [...] for your loved ones. For example, child caregiver or elderly care for an older adult? [...] 11:00 AM EST Office Visit Adult Medicine [address] [phone] Lex Rich MD [address] [place] [phone] 07/15/2025 9:00 AM EST Office Visit Pulmonology - [place] 175 [facility] [address] [place] [address] Aysha Hernandez MD 230 [place] [phone] 08/02/2025 1:00 PM EST Consult [facility] [place] - [place] 175 [facility] 150 [place] [phone] Arpita Willis PA 230 [place] [phone] 08/06/2025 10:15 AM EST Office Visit Orthopedic Surgery - [place] 250 175 [facility] 250 [place] [phone] Diony Toledo DPM 230 [place] [phone] documented as of this encounter Procedures Procedure Name Priority Date/Time Associated Diagnosis Comments HISTORICAL SURGICAL PATHOLOGY CASE Routine 02/26/2025 1:00 PM EDT Pulmonary fibrosis, unspecified (CMS/[facility] V24, CMS/[facility] V28) documented in this encounter Results * Historical Pathology Case (02/26/2025 1:00 PM EDT) Final Diagnosis This case was created to document slides being sent to [facility] from a historical case accessioned in our prior laboratory information system. The report is available upon request. No additional diagnosis is rendered by this institution at this time. 05/08/2025 11:19 AM EDT EXTERNAL LAB (NON-INTERFAC ED) at 1119 EDT Clinical Information Historical case created for requests for materials from outside institutions. 05/08/2025 11:19 AM EDT [facility] Gross Description A. Lung, Right Upper Lobe, : [id number] Whole case (5) sent JS/KK 05/08/2025 11:19 AM EDT [facility] Disclaimer Unless otherwise specified, all tissue is 10% NB formalin fixed and paraffin embedded. 05/08/2025 11:19 AM EDT [facility] Tissue Structure of upper lobe of right lung / Unknown 02/26/2025 1:00 PM EDT 02/26/2025 1:00 PM EDT us Susanne Cohen MD LAB PATHOLOGY ORDERABLES Final R esult EXTERNAL LAB (NON-INTERFACED) [facility] 299 [place] [address], documented in this encounter Visit Diagnoses Diagnosis Pulmonary fibrosis, unspecified (CMS/HCC V24, CMS/HCC V28) documented in this encounter Additional Health Concerns Assessment Noted Time PHQ-9 Depression Total Score: 0 10/19/19 25 8:17 AM EDT documented as of this encounter Care Teams Mine Inspector Federal Relationship Specialty Start Date End Date Lex Rich MD [address] [place] [phone] PCP - General Internal Medicine 05/24/24 documented as of this encounter
--- OUTSIDE RECORDS SUMMARY | 2025-05-28 16:10 | XMS_ITS | Encounter Summary ---
Author Organization [facility] Address [address] [place] [address] Care Team Providers Care Pizza Hut Team Member Name Role Phone Lex Rich MD Primary Care Pr ovider Encounter Details Date Type Department Care Team (Late Contact Info) Description 09/27/2024 Lab Requisition [facility] - Main Lab 299 [facility] [place] [address] Mainor Crawford MD [address] [place] [address], [phone] Polymyalgia rheumatica (CMS/HCC V24) Social History [...] Encounters Date Type Department Care Team ([facility] Contact Info) Description 05/31/2025 11:00 AM EST Office Visit Adult Medicine [address] [phone] Lex Rich MD [address] [place] [phone] 07/15/2025 9:00 AM EST Office Visit Pulmonology [facility] 175 [facility] 200 [place] [phone] Aysha Hernandez MD 230 [place] [phone] 08/02/2025 1:00 PM EST Consult [facility] for [place] - [place] 175 [facility] 150 [place] [phone] Arpita Willis PA 230 [place] [phone] 08/06/2025 10:15 AM EST Office Visit Orthopedic Surgery - [place] 250 175 [facility] 250 [place] [phone] Diony Toledo DPM 230 [place] [phone] documented as of this encounter Procedures Procedure Name Priority Date/Time Associated Diagnosis Comments COMPLETE BLOOD COUNT Routine 09/27/2024 4:53 AM EST Polymyalgia rheumatica (CMS/HCC) COMPREHENSIVE METABOLIC PANEL Routine 09/27/2024 4:53 AM EST Polymyalgia rheumatica (CMS/HCC) documented in this encounter Results * (ABNORMAL) Comprehensive metabolic panel (09/27/2024 4:53 AM EST) Sodium 134 133 - 145 mmol/L LAB CHEMISTRY METHOD 09/27/2024 10:15 AM EST [facility] Potassium 3.8 3.5 - 5.5 mmol/L LAB CHEMISTRY METHOD 09/27/2024 10:15 AM EST [facility] Chloride 97 96 - 110 mmol/L LAB CHEMISTRY METHOD 09/27/2024 10:15 AM EST [facility] CO2 30 21 - 32 mmol/L LAB CHEMISTRY METHOD 09/27/2024 10:15 AM [facility] Anion Gap 7 3 - 11 LAB CHEMISTRY METHOD 09/27/2024 10:15 AM [facility] Glucose 108(H) 70 - 100 mg/dL LAB CHEMISTRY METHOD 09/27/2024 10:15 AM [facility] BUN 19 5 - 25 mg/dL LAB CHEMISTRY METHOD 09/27/2024 10:15 AM [facility] Creatinine 0.57 0.50 - 1.10 mg/dL LAB CHEMISTRY METHOD 09/27/2024 10:15 AM [facility] eGFR 106 >=60 mL/min/1. 73m2 LAB CHEMISTRY METHOD 09/27/2024 10:15 AM [facility] Comment:Calculation based on the Chronic Kidney Disease Epidemiology Collaboration (CKD-EPI) equation refit without adjustment for race. BUN/Creatinine Ratio 33.3 LAB CHEMISTRY METHOD 09/27/2024 10:15 AM [facility] Calcium 8.6 8.5 - 10.5 mg/dL LAB CHEMISTRY METHOD 09/27/2024 10:15 AM [facility] AST (SGOT) 35 10 - 42 unit/L LAB CHEMISTRY METHOD 09/27/2024 10:15 AM [facility] ALT (SGPT) 60 10 - 60 unit/L LAB CHEMISTRY METHOD 09/27/2024 10:15 AM [facility] Alkaline Phosphatase 100 42 - 121 unit/L LAB CHEMISTRY METHOD 09/27/2024 10:15 AM [facility] Total Protein 5.8(L) 6.0 - 8.0 g/dL LAB CHEMISTRY METHOD 09/27/2024 10:15 AM [facility] Albumin 2.3(L) 3.2 - 5.0 g/dL LAB CHEMISTRY METHOD 09/27/2024 10:15 AM [facility] Total Bilirubin 0.3 0.0 - 1.4 mg/dL LAB CHEMISTRY METHOD 09/27/2024 10:15 AM [facility] Blood Venous blood specimen / Unknown Venipuncture / Unknown 09/27/2024 4:53 AM EST 09/27/2024 8:45 AM EST us Mainor Crawford MD LAB BLOOD ORDERABLES Final Resul t [facility] 299 [place] [address], [place] [phone] * (ABNORMAL) Complete blood count (09/27/2024 4:53 AM EST) WBC 8.7 4.8 - 10.8 K/mcL LAB HEMETOLOGY METHOD 09/27/2024 9:33 AM [facility] RBC 3.60(L) 3.80 - 4.80 M/[facility] LAB HEMETOLOGY METHOD 09/27/2024 9:33 AM [facility] Hemoglobin 10.5(L) 11.5 - 16.0 g/dL LAB HEMETOLOGY METHOD 09/27/2024 9:33 AM [facility] Hematocrit 33.3(L) 35.0 - 47.0 % LAB HEMETOLOGY METHOD 09/27/2024 9:33 AM [facility] MCV 92.2 79.0 - 98.0 FL LAB HEMETOLOGY METHOD 09/27/2024 9:33 AM [facility] MCH 29.1 27.0 - 32.0 pcg LAB HEMETOLOGY METHOD 09/27/2024 9:33 AM [facility] MCHC 31.5(L) 32.0 - 37.0 g/dL LAB HEMETOLOGY METHOD 09/27/2024 9:33 AM [facility] RDW 17.8(H) 11.0 - 15.0 % LAB HEMETOLOGY METHOD 09/27/2024 9:33 AM EST [facility] Platelets 397 130 - 400 K/mcL LAB HEMETOLOGY METHOD 09/27/2024 9:33 AM EST [facility] MPV 9.2 7.0 - 11.0 FL LAB HEMETOLOGY METHOD 09/27/2024 9:33 AM EST [facility] NRBC 0.0 <1.0 % LAB HEMETOLOGY METHOD 09/27/2024 9:33 AM EST [facility] NRBC Absolute 0.00 <0.10 K/mcL LAB HEMETOLOGY METHOD 09/27/2024 9:33 AM EST [facility] Blood Venous blood specimen / Unknown Venipuncture / Unknown 09/27/2024 4:53 AM EST 09/27/2024 8:45 AM EST us Mainor Crawford MD LAB BLOOD ORDERABLES Final Resul t [facility] [address] [place] [address], documented in this encounter Visit Diagnoses Diagnosis Polymyalgia rheumatica (CMS/HCC V24) Polymyalgia rheumatica documented in this encounter Care Teams [employer] Team Member Relationship Specialty Start Date End Date Lex Rich MD [address] [place] [phone] PCP - General Internal Medicine 05/24/24 documented as of this encounter
--- OUTSIDE RECORDS SUMMARY | 2025-05-28 16:10 | XMS_ITS | Encounter Summary ---
Author Organization [facility] Address [address] [place] [address] Care Team Providers Care Production Troubleshooter Name Role Phone Lex Rich MD Primary Care Pr ovider Encounter Details Date Type Department Care Team (Late Contact Info) Description 10/07/2024 Lab Requisition [facility] - Main Lab 299 [facility] [place] [address] Mainor Crawford MD [address] [place] [address], [phone] Polymyalgia rheumatica (CMS/HCC V24) Social History [...] Encounters Date Type Department Care Team ([facility] Contact Info) Description 05/31/2025 11:00 AM EST Office Visit Adult Medicine [address] [phone] Lex Rich MD [address] [place] [phone] 07/15/2025 9:00 AM EST Office Visit Pulmonology - [place] 175 [facility] 200 [place] [phone] Aysha Hernandez MD 230 [place] [phone] 08/02/2025 1:00 PM EST Consult [facility] for [place] - [place] 175 [facility] 150 [place] [phone] Arpita Willis PA 230 [place] [phone] 08/06/2025 10:15 AM EST Office Visit Orthopedic Surgery - [place] 250 175 [facility] 250 [place] [phone] Diony Toledo DPM 230 [place] [phone] documented as of this encounter Procedures Procedure Name Priority Date/Time Associated Diagnosis Comments PREALBUMIN Routine 10/08/2024 5:24 AM EDT Polymyalgia rheumatica (CMS/HCC) documented in this encounter Results * Prealbumin (10/08/2024 5:24 AM EDT) Prealbumin 27 18 - 45 mg/dL LAB CHEMISTRY METHOD 10/08/2024 11:51 AM EDT [facility] Blood Venous blood specimen / Unknown Venipuncture / Unknown 10/08/2024 5:24 AM EDT 10/08/2024 10:33 AM EDT us Mainor Crawford MD LAB BLOOD ORDERABLES Final Resul t [facility] ([facility] 299 [place], [place] [address] [phone] documented in this encounter Visit Diagnoses Diagnosis Polymyalgia rheumatica (CMS/[facility] V24) Polymyalgia rheumatica documented in this encounter Care Teams Production Troubleshooter Relationship Specialty Start Date End Date Lex Rich MD [address] [place] [phone] PCP - General Internal Medicine 05/24/24 documented as of this encounter
--- OUTSIDE RECORDS SUMMARY | 2025-05-28 16:10 | XMS_ITS | Clinical Summary ---
Author Organization [facility] Address [address] [address] Phone Care Team Providers Care Barrel Marker Name Role Phone Lex Rich MD Primary [...] incisional pain. Directed to follow-up with her lard tub washer Dr. Hernandez in regards to her pulmonary [...] - 03/05/2025 11:59 PM EDT Hospital Encounter [facility] PATHOLOGY VIRTUAL DEPARTMENT [address] [place] [address] Discharge Disposition: Home or Self [...] SEE NARRATIVE - 03/06/2025 11:43 [place] [address] Surgical Pathology Outside Consultation Patient Name: PATRICIA ALEXANDRE : 1965 (Age: 59) Sex: F Location: [facility] Institution: [facility] Date of Reported: 03/06/2025 11:43 Results To: Jack Gibbons MD FINAL PATHOLOGIC DIAGNOSIS: A. LUNG, RIGHT UPPER LOBE, WEDGE RESECTION ([id number] A1; 12/06/2023): Patchy interstitial fibrosis with lymphoplasmacytic cell infiltrates. See note. B. LUNG, RIGHT MIDDLE LOBE, WEDGE RESECTION ([id number] B1, B2; 12/06/2023): Patchy interstitial fibrosis with lymphoplasmacytic cell infiltrates. See note. C. LUNG, RIGHT LOWER LOBE, WEDGE RESECTION ([id number] C1, C2; 12/06/2023): Patchy interstitial fibrosis with [...] A: LUNG, RIGHT UPPER LOBE, WEDGE RESECTION ([id number] A1; 12/06/2023) B: LUNG, RIGHT MIDDLE LOBE, WEDGE RESECTION ([id number] B1, B2; 12/06/2023) C: LUNG, RIGHT LOWER LOBE, WEDGE RESECTION ([id number] C1, C2; 12/06/2023) SLIDE-BLOCK DESCRIPTION: Consult materials received [place] on 02/27/2025. A. LUNG, RIGHT UPPER LOBE, WEDGE RESECTION ([id number] A1; 12/06/2023): Stained Slides: 1 Unstained slides: 0 Blocks: 0 B. LUNG, RIGHT MIDDLE LOBE, WEDGE RESECTION ([id number] B1, B2; 12/06/2023): Stained Slides: 2 Unstained slides: 0 Blocks: 0 C. LUNG, RIGHT LOWER LOBE, WEDGE RESECTION ([id number] C1, C2; 12/06/2023): Stained Slides: 2 Unstained slides: 0 Blocks: 0 Jack Gibbons MD PATHOLOGY ORDERABLES Final Result SEE NARRATIVE * Anatomic Pathology (Non-MGB) (03/05/2025 12:00 AM EDT) [place] [address] Surgical Pathology Outside Consultation Patient Name: PATRICIA ALEXANDRE : 1965 (Age: 59) Sex: F Location: [facility] Institution: [facility] Date of Reported: 03/06/2025 11:43 Results To: Jack Gibbons MD FINAL PATHOLOGIC DIAGNOSIS: A. LUNG, RIGHT UPPER LOBE, WEDGE RESECTION ([id number] A1; 12/06/2023): Patchy interstitial fibrosis with lymphoplasmacytic cell infiltrates. See note. B. LUNG, RIGHT MIDDLE LOBE, WEDGE RESECTION ([id number] B1, B2; 12/06/2023): Patchy interstitial fibrosis with lymphoplasmacytic cell infiltrates. See note. C. LUNG, RIGHT LOWER LOBE, WEDGE RESECTION ([id number] C1, C2; 12/06/2023): Patchy interstitial fibrosis with [...] A: LUNG, RIGHT UPPER LOBE, WEDGE RESECTION ([id number] A1; 12/06/2023) B: LUNG, RIGHT MIDDLE LOBE, WEDGE RESECTION ([id number] B1, B2; 12/06/2023) C: LUNG, RIGHT LOWER LOBE, WEDGE RESECTION ([id number] C1, C2; 12/06/2023) SLIDE-BLOCK DESCRIPTION: Consult materials received from [place] on 02/27/2025. A. LUNG, RIGHT UPPER LOBE, WEDGE RESECTION ([id number] A1; 12/06/2023): Stained Slides: 1 Unstained slides: 0 Blocks: 0 B. LUNG, RIGHT MIDDLE LOBE, WEDGE RESECTION ([id number] B1, B2; 12/06/2023): Stained Slides: 2 Unstained slides: 0 Blocks: 0 C. LUNG, RIGHT LOWER LOBE, WEDGE RESECTION ([id number] C1, C2; 12/06/2023): Stained Slides: 2 Unstained slides: 0 Blocks: 0 [facility] Clinical History Interstitial lung disease [facility] Final Diagnosis A. LUNG, RIGHT UPPER LOBE, WEDGE RESECTION ([id number] [id number]; 12/06/2023): Patchy interstitial fibrosis with lymphoplasmacytic cell infiltrates. See note. B. LUNG, RIGHT MIDDLE LOBE, WEDGE RESECTION ([id number] B1, B2; 12/06/2023): Patchy interstitial fibrosis with lymphoplasmacytic cell infiltrates. See note. C. LUNG, RIGHT LOWER LOBE, WEDGE RESECTION ([id number] C1, C2; 12/06/2023): Patchy interstitial fibrosis with [...] chronic hypersensitivity pneumonitis. Clinical correlation is recommended. [facility] Slide-Block Description Consult materials received from [place] on 02/27/2025. A. LUNG, RIGHT UPPER LOBE, WEDGE RESECTION ([id number] A1; 12/06/2023): Stained Slides: 1 Unstained slides: 0 Blocks: 0 B. LUNG, RIGHT MIDDLE LOBE, WEDGE RESECTION ([id number] B1, B2; 12/06/2023): Stained Slides: 2 Unstained slides: 0 Blocks: 0 C. LUNG, RIGHT LOWER LOBE, WEDGE RESECTION ([id number] C1, C2; 12/06/2023): Stained Slides: 2 Unstained slides: 0 Blocks: 0 [facility] Conversion Type (Conversion Source) 03/05/2025 03/05/2025 7:36 AM EDT Conversion Type (Conversion Source) 03/05/2025 03/05/2025 7:36 AM EDT Conversion Type (Conversion Source) 03/05/2025 03/05/2025 7:36 AM EDT us Jack Gibbons MD LAB PATHOLOGY ORDERABLES E dited Result - Final [address] [address] * Outside Pathology (02/27/2025) us Scanning Interface Provider PATHOLOGY ORDERABLES Final Result * Outside Imaging Report Only (02/25/2025) us Scanning Interface Provider IMG XR CHEST Hodan l Result from Last 3 Months Insurance [facility] MEDICARE REPLACEMENT [facility] MEDICARE REPLACEMENT [facility] MEDICARE REPLACEMENT [facility] MEDICARE REPLACEMENT [place] [address] [place] [address] MEDICARE REPLACEMENT [facility] MEDICARE REPLACEMENT Care Teams Barrel Marker Relationship Specialty Start Date End Date Lex Rich MD PCP - General Family Medicine 02/20/24 Additional Source Comments The information contained in this document represents components of the legal health record. It is not the complete legal health record.[facility]
--- OUTSIDE RECORDS SUMMARY | 2025-05-28 16:10 | XMS_ITS | Encounter Summary ---
Author Organization [facility] Address [address] [place] [address] Care Team Providers Care Chin Strap Maker Name Role Phone Lex Rich MD Primary Care Pr ovider Encounter Details Date Type Department Care Team (Late Contact Info) Description 09/19/2024 Billing Patient Not Present Adult Medicine [address] [phone] Shannon Wymanbel MS Social History Tobacco Use Types Packs/Day Years [...] 11:00 AM EST Office Visit Adult Medicine [address] [phone] Lex Rich MD [address] [place] [address] 07/15/2025 9:00 AM EST Office Visit Pulmonology - [address] [place] [phone] Aysha Hernandez MD 230 [place] [phone] 08/02/2025 1:[address] [facility] [place] 175 [facility] 150 [place] [phone] Arpita Willis PA 230 [place] [phone] 08/06/2025 10:15 AM EST Office Visit Orthopedic Surgery - [place] 250 175 [facility] 250 [place] [phone] Diony Toledo DPM 230 [place] [phone] documented as of this encounter Visit Diagnoses Not on filedocumented in this encounter Care Teams Chin Strap Maker Relationship Specialty Start Date End Date Lex Rich MD [address] [place] [phone] PCP - General Internal Medicine 05/24/24 documented as of this encounter
--- OUTSIDE RECORDS SUMMARY | 2025-05-28 16:10 | XMS_ITS | Encounter Summary ---
Author Organization [facility] Address [address] [place] [address] Care Team Providers Care Forklift Mechanic Name Role Phone Lex Rich MD Primary Care Pr ovider Reason for Referral * Consultation (Routine) - Authorized Specialty Diagnoses / Procedures Referred By Contac t Referred To Contact Endocrinology Diagnoses Localized osteoporosis without current pathological fracture Lex Rich MD [address] [place] [address] Phone: tel: fax: [address] Phone: tel: fax: Referral ID Status Reason Start Date Expiration Date Visits Requested Visits Authorized [id number] Authorized Specialty Services Required 05/17/2026 1 1 Encounter Details Date Type Department Care Team (Late st Contact Info) Description 05/16/2025 Results Follow-Up Adult Medicine [address] [phone] Christianne Vidales PA [address] [place] [id number] Social History Tobacco Use Types Packs/Day Years [...] care for your loved ones. For example, children's lunchroom supervisor or elderly care for an older adult? [...] 11:00 AM EST Office Visit Adult Medicine [facility] [address] [place], [place] [phone] Lex Rich MD [address] [place], [place] 07/15/2025 9:00 AM EST Office Visit Pulmonology [facility] 175 [facility] 200 [place] [phone] Aysha Hernandez MD [address] [place] [address] 08/02/2025 1:00 PM EST Consult [facility] 175 [facility] 150 [place] [phone] Arpita Willis PA [address] [place] [address] 08/06/2025 10:15 AM EST Office Visit Orthopedic Surgery [facility] 250 175 [facility] 250 [place] [phone] Diony Toledo DPM [address] [place] [phone] Scheduled Referrals Name Type Priority Associated Diagnoses [...] documented as of this encounter Care Teams Forklift Mechanic Relationship Specialty Start Date End Date Lex Rich MD [address] [place] [phone] PCP - General Internal Medicine 05/24/24 documented as of this encounter
--- OUTSIDE RECORDS SUMMARY | 2025-05-28 16:11 | XMS_ITS | Clinical Summary ---
Author Organization [facility] Address [address] [place], [place] [address] Phone Care Team Providers Care Chief Business Officer Name Role Phone Lex Rich MD Primary [...] %) nebulizer solutionIndicatio ns:ILD (interstitial lung disease) ([facility] V24, [facility] V28) Take 3 mL (2.5 [...] polyneuropathy, without long-term current use of insulin ([facility] V24, [facility] V28) TAKE 1 CAPSULE BY MOUTH THREE TIMES A DAY 270 capsule 025 Active baclofen (LIORESAL) 10 mg tabletIndications :Polymyalgia rheumatica ([facility] V24) TAKE 1 TABLET BY MOUTH THREE TIMES A DAY 270 tablet 1 025 Active gabapentin (NEURONTIN) 300 mg capsuleIndication s:Type 2 diabetes mellitus with diabetic polyneuropathy, without long-term current use of insulin ([facility] V24, [facility] V28) Take 1 capsule (300 mg total) by mouth 3 (three) times a day. 270 each 025 2024 Discontinued baclofen (LIORESAL) 10 mg tabletIndications :Polymyalgia rheumatica ([facility] V24) Take 1 tablet (10 [...] complication, without long-term current use of insulin ([facility] V24, [facility] V28) 10/21/2024 Assessment & Plan (11/22/2024 1:27 [...] Future Bilateral calcaneal spurs 10/19/2024 Polymyalgia rheumatica ([facility] V24) 10/18/2024 Assessment & Plan (11/22/2024 1:27 [...] incisional pain. Directed to follow-up with her clinical field specialist Dr. Hernandez in regards to her pulmonary fibrosis. Will follow-up with the thoracic surgical department moving forward on a as needed basis and to contact the thoracic surgery department should she have any further questions or concerns in the future. Assessment & Plan (02/22/2025 12:02 PM EDT): Continue pulmonology follow-up both locally and in [place]. She knew continue prednisone and Ofev as prescribed by her clinical field specialist. Hyperlipidemia 06/27/2023 Assessment & Plan (02/22/2025 12:02 [...] 05/16/2025 11:45 AM EDT Office Visit Pulmonology [facility] [address] [phone] Aysha Hernandez MD ILD (interstitial lung disease) ([facility] V24, [facility] V28) (Primary Dx); Connective tissue disease ([facility] V24) 05/16/2025 Results Follow-Up Adult Medicine [address] [phone] Christianne Vidales PA 05/10/2025 10:28 AM EDT - 05/10/2025 11:59 PM EDT Hospital Encounter Bone Density - [address] [phone] Osteopenia, unspecified location Discharge Disposition: Home or Self Care 04/11/2025 2:00 PM EDT Office Visit [address] [phone] Aysha Hernandez MD ILD (interstitial lung disease) ([facility] V24, [facility] V28) (Primary Dx) 04/04/2025 10:00 AM EDT Office Visit Orthopedic Surgery [facility] [address] [phone] Diony Toledo DPM Rheumatoid arthritis involving both feet with positive rheumatoid factor ([facility] V24, [facility] V28) (Primary Dx); Follow-up exam; Diabetic mononeuropathy simplex ([facility] V24, [facility] V28); Neuritis 03/19/2025 8:45 AM EDT Office Visit Pulmonology [facility] [address] [phone] Aysha Hernandez MD ILD (interstitial lung disease) ([facility] V24, [facility] V28) (Primary Dx); Pulmonary fibrosis ([facility] V24, [facility] V28) 03/13/2025 10:41 AM EDT - 03/13/2025 11:59 PM EDT Hospital Encounter Radiology Department - [address] [phone] Encounter for screening mammogram for breast cancer Discharge Disposition: Home or Self Care 03/12/2025 2:43 PM EDT - 03/12/2025 11:59 PM EDT Hospital Encounter Radiology Department - [address] [phone] Pressure in head Discharge Disposition: Home or Self Care 02/26/2025 Lab Requisition [facility] - Main Lab 299 [facility] [place] [address] Susanne Cohen MD Pulmonary fibrosis, unspecified ([facility] V24, [facility] V28) 02/25/2025 8:37 AM EDT - 02/25/2025 11:59 PM EDT Hospital Encounter Radiology Department - [address] [phone] Right upper quadrant abdominal pain Discharge Disposition: Home or Self Care 02/25/2025 Telephone Adult Medicine [address] [phone] Ava Cronin, RN from Last 3 Months [...] care for your loved ones. For example, housekeeper child care or elderly care for an older adult? [...] 11:00 AM EST Office Visit Adult Medicine [address] [phone] Lex Rich MD [address] [place] [address] 07/15/2025 9:00 AM EST Office Visit Pulmonology - [place] 175 [facility] 200 [place] [phone] Aysha Hernandez MD 230 [place] [phone] 08/02/2025 1:00 PM EST Consult [facility] - [place] 175 [facility] 150 [place] [phone] Arpita Willis PA [address] [place] [phone] 08/06/2025 10:15 AM EST Office Visit Orthopedic Surgery - [place] 250 175 [facility] 250 [place] [phone] Diony Toledo DPM [address] [place] [phone] Health Maintenance Due Date Last [...] to have osteoporosis by WHO criteria. The [facility] Department of Internal Medicine recommends using [...] alternative screening schedule based on juany Iraheta., [facility] August 12, 2011 for patients [...] Signed Date: 05/13/2025 12:50 ET Workstation ID: [id number] Transcribed By: Self Edit Transcribed Date: 05/13/2025 [...] to have osteoporosis by WHO criteria. The [facility] Department of Internal Medicine recommendsusing National [...] alternative screening schedule based on juany Iraheta., [facility] for patients with osteopenia (based [...] Signed Date: 05/13/2025 12:50 ET Workstation ID: [id number] Transcribed By: Self Edit Transcribed Date: 05/13/2025 12:49 ET us Lex Rich MD IM DXA PROCEDUR ES Final Result * (ABNORMAL) CBC auto differential (04/11/2025 2:47 PM EDT) WBC 9.5 4.8 - 10.8 K/mcL LAB HEMETOLOGY METHOD [facility] RBC 4.30 3.80 - 4.80 M/mcL LAB HEMETOLOGY METHOD 04/11/2025 6:27 [facility] Hemoglobin 12.8 11.5 - 16.0 g/dL LAB HEMETOLOGY METHOD 04/11/2025 6:27 [facility] Hematocrit 40.2 35.0 - 47.0 % LAB HEMETOLOGY METHOD 04/11/2025 6:27 [facility] MCV 93.9 79.0 - 98.0 FL LAB HEMETOLOGY METHOD 04/11/2025 6:27 PM [facility] MCH 29.9 27.0 - 32.0 pcg LAB HEMETOLOGY METHOD 04/11/2025 6:27 PM [facility] MCHC 31.8(L) 32.0 - 37.0 g/dL LAB HEMETOLOGY METHOD 04/11/2025 6:27 PM [facility] RDW 14.8 11.0 - 15.0 % LAB HEMETOLOGY METHOD 04/11/2025 6:27 PM [facility] Platelets 526(H) 130 - 400 K/mcL LAB HEMETOLOGY METHOD 04/11/2025 6:27 PM [facility] MPV 9.5 7.0 - 11.0 FL LAB HEMETOLOGY METHOD 04/11/2025 6:27 PM [facility] NRBC 0.0 <1.0 % LAB HEMETOLOGY METHOD 04/11/2025 6:27 PM [facility] NRBC Absolute 0.00 <0.10 K/mcL LAB HEMETOLOGY METHOD 04/11/2025 6:27 PM [facility] Neutrophils Relative 68.7 % LAB HEMETOLOGY METHOD 04/11/2025 6:27 PM [facility] Lymphocytes Relative 25.8 % LAB HEMETOLOGY METHOD 04/11/2025 6:27 PM [facility] Monocytes Relative 3.9 % LAB HEMETOLOGY METHOD 04/11/2025 6:27 PM [facility] Eosinophils Relative 0.1 % LAB HEMETOLOGY METHOD 04/11/2025 6:27 PM [facility] Basophils Relative 0.9 % LAB HEMETOLOGY METHOD 04/11/2025 6:27 PM [facility] Immature Granulocytes Relative 0.6 % LAB HEMETOLOGY METHOD 04/11/2025 6:27 PM [facility] Neutrophils Absolute 6.55 1.50 - 7.00 K/mcL LAB HEMETOLOGY METHOD 04/11/2025 6:27 PM [facility] Lymphocytes Absolute 2.46 1.00 - 5.00 K/mcL LAB HEMETOLOGY METHOD 04/11/2025 6:27 PM [facility] Monocytes Absolute 0.37 0.20 - 1.00 K/mcL LAB HEMETOLOGY METHOD 04/11/2025 6:27 PM [facility] Eosinophils Absolute 0.01 0.00 - 0.50 K/mcL LAB HEMETOLOGY METHOD 04/11/2025 6:27 PM [facility] Basophils Absolute 0.09 0.00 - 0.20 K/mcL LAB HEMETOLOGY METHOD 04/11/2025 6:27 PM [facility] Immature Granulocytes Absolute 0.06(H) 0.00 - 0.03 K/mcL LAB HEMETOLOGY METHOD 04/11/2025 6:27 PM [facility] Blood Venous blood specimen / Unknown Venipuncture / Unknown 04/11/2025 2:47 PM EDT 04/11/2025 2:47 PM EDT us Aysha Hernandez MD LAB BLOOD ORDERABLES Final Resul t [facility] [address] [place] [address], [place] [phone] * XR Foot 3+ Views bilat (04/04/2025 [...] is recommended in 1 year. Mammo Location: [facility], [address] [place] [address], [id number], . -------- FINAL REPORT -------- Dictated By: Maya Garcia Dictated Date: 03/14/2025 11:23 ET Assigned Physician: Maya Garcia Reviewed and Electronically Signed By: Maya Garcia Signed Date: 03/14/2025 11:27 ET Workstation ID: [id number] Transcribed By: Self Edit Transcribed Date: 03/14/2025 [...] is recommended in 1 year. Mammo Location: [facility], [address] [place] [address], [id number], . -------- FINAL REPORT -------- Dictated By: Maya Garcia Dictated Date: 03/14/2025 11:23 ET Assigned Physician: Maya Garcia Reviewed and Electronically Signed By: Maya Garcia Signed Date: 03/14/2025 11:27 ET Workstation ID: [id number] Transcribed By: Self Edit Transcribed Date: 03/14/2025 [...] Signed Date: 03/12/2025 17:45 ET Workstation ID: [id number] Transcribed By: Self Edit Transcribed Date: 03/12/2025 [...] Signed Date: 03/12/2025 17:45 ET Workstation ID: [id number] Transcribed By: Self Edit Transcribed Date: 03/12/2025 17:33 ET Lex Rich MD [facility] [place] PROCEDUR ES Final Result * Historical Pathology Case (02/26/2025 1:00 PM EDT) Final Diagnosis This case was created to document slides being sent to [facility] from a historical case accessioned in our prior laboratory information system. The report is available upon request. No additional diagnosis is rendered by this institution at this time. 05/08/2025 11:19 AM EDT EXTERNAL LAB (NON-INTERFAC ED) at 1119 EDT Clinical Information Historical case created for requests for materials from outside institutions. 05/08/2025 11:19 AM EDT [facility] Gross Description A. Lung, Right Upper Lobe, : [id number] Whole case (5) sent JS/KK 05/08/2025 11:19 AM EDT [facility] Disclaimer Unless otherwise specified, all tissue is 10% NB formalin fixed and paraffin embedded. 05/08/2025 11:19 AM EDT [facility] Tissue Structure of upper lobe of right lung / Unknown 02/26/2025 1:00 PM EDT 02/26/2025 1:00 PM EDT us Susanne Cohen MD LAB PATHOLOGY ORDERABLES Final R esult EXTERNAL LAB (NON-INTERFACED) [facility] [address] [place] [address], [place] [phone] * US Abdomen Limited (02/25/2025 9:36 AM EDT) Anatomical Region Laterality Modality Body Ultrasound 02/25/2025 10:0 3 AM EDT Impressions 02/25/2025 10:05 AM EDT Hepatic steatosis. -------- FINAL REPORT -------- Dictated By: Maya Garcia Dictated Date: 02/25/2025 10:03 ET Assigned Physician: Maya Garcia Reviewed and Electronically Signed By: Maya Garcia Signed Date: 02/25/2025 10:05 ET Workstation ID: [id number] Transcribed By: Self Edit Transcribed Date: 02/25/2025 [...] Signed Date: 02/25/2025 10:05 ET Workstation ID: [id number] Transcribed By: Self Edit Transcribed Date: 02/25/2025 10:03 ET us Lex Rich MD [facility] [place] PROCEDURE S Final Result * Lipid panel with reflex to direct LDL (02/25/2025 9:14 AM EDT) Cholesterol 181 0 - 200 mg/dL LAB CHEMISTRY METHOD 02/25/2025 2:45 PM EDT [facility] Triglycerides 61 0 - 150 mg/dL LAB CHEMISTRY METHOD 02/25/2025 2:45 PM EDT [facility] HDL 72 >=40 mg/dL LAB CHEMISTRY METHOD 02/25/2025 2:45 PM EDT [facility] LDL Calculated 97 0 - 100 mg/dL LAB CHEMISTRY METHOD 02/25/2025 2:45 PM EDT [facility] VLDL Cholesterol Tamir 12.2 mg/dL LAB CHEMISTRY METHOD 02/25/2025 2:45 PM EDT [facility] Non HDL Chol. (LDL+VLDL) 109 <145 mg/dL LAB CHEMISTRY METHOD 02/25/2025 2:45 PM EDT [facility] Chol/HDL Ratio 2.5 0.0 - 4.4 LAB CHEMISTRY METHOD 02/25/2025 2:45 PM EDT [facility] Blood Venous blood specimen / Unknown Venipuncture / Unknown 02/25/2025 9:14 AM EDT 02/25/2025 9:14 AM EDT Lex Rich MD LAB BLOOD ORDERA BLES Final Result [facility] [address] [place] [address], [place] [phone] * Microalbumin creatinine urine ratio (02/25/2025 9:14 AM EDT) Creatinine, Urine 43.0 mg/dL LAB CHEMISTRY METHOD 02/25/2025 11:30 AM EDT [facility] Microalb, Ur <5.0 0.0 - 29.0 mg/L LAB CHEMISTRY METHOD 02/25/2025 11:30 AM EDT [facility] Microalb/Creat Ratio <12 <30 mg/g creat LAB CHEMISTRY METHOD 02/25/2025 11:30 AM EDT [facility] Urine Urine specimen obtained by clean catch procedure / Unknown Non-blood Collection / Unknown 02/25/2025 9:14 AM EDT 02/25/2025 9:14 AM EDT Lex Rich MD LAB URINE ORDERA BLES Final Result Performing Organization Address City/[facility]/ZIP Co de Phone Number [facility] [address] [place] [address], [place] [phone] * (ABNORMAL) Helicobacter pylori breath test (02/25/2025 9:14 AM EDT) H Pylori Breath Test Positive( A) Negative LAB CHEMISTRY METHOD 02/25/2025 10:43 AM EDT [facility] Breath Oral cavity structure / Unknown Non-blood Collection / Unknown 02/25/2025 9:14 AM EDT 02/25/2025 9:14 AM EDT Lex Rich MD LAB BODY FLUIDS AND STOOLS ORDERABLES Final Result [facility] [address] [place] [address], [place] [phone] * Vitamin D 25 hydroxy (02/25/2025 9:14 AM EDT) Vit D, 25-Hydroxy 37.7 30.0 - 80.0 ng/mL LAB CHEMISTRY METHOD 02/25/2025 3:28 PM EDT [facility] Blood Venous blood specimen / Unknown Venipuncture / Unknown 02/25/2025 9:14 AM EDT 02/25/2025 9:14 AM EDT Lex Rich MD LAB BLOOD ORDERA BLES Final Result [facility] [address] [place] [address], [place] [phone] * Lipase (02/25/2025 9:14 AM EDT) [facility] Lipase 57 13 - 75 unit/L LAB CHEMISTRY METHOD 02/25/2025 2:25 PM EDT [facility] Blood Venous blood specimen / Unknown Venipuncture / Unknown 02/25/2025 9:14 AM EDT 02/25/2025 9:14 AM EDT Lex Rich MD LAB BLOOD ORDERA BLES Final Result Performing Organization Address [facility]/ZIP Co de Phone Number [facility] [address] [place] [address], [place] [phone] * Hemoglobin A1c (02/25/2025 9:14 AM EDT) [facility] Hemoglobin A1C 5.9 <6.5 % LAB CHEMISTRY METHOD 02/25/2025 12:22 PM EDT [facility] Mean Bld Glu Estim. 123 mg/dL LAB CHEMISTRY METHOD 02/25/2025 12:22 PM EDT [facility] Blood Venous blood specimen / Unknown Venipuncture / Unknown 02/25/2025 9:14 AM EDT 02/25/2025 9:14 AM EDT Lex Rich MD LAB BLOOD ORDERA BLES Final Result Performing Organization Address City/[facility]/ZIP Co de Phone Number [facility] [address] [place] [address], [place] [phone] * Amylase (02/25/2025 9:14 AM EDT) [facility] Amylase 84 25 - 115 unit/L LAB CHEMISTRY METHOD 02/25/2025 1:48 PM EDT [facility] Blood Venous blood specimen / Unknown Venipuncture / Unknown 02/25/2025 9:14 AM EDT 02/25/2025 9:14 AM EDT Lex Rich MD LAB BLOOD ORDERA BLES Final Result [facility] [address] [place] [address], [place] [phone] * (ABNORMAL) Comprehensive metabolic panel (02/25/2025 9:14 AM EDT) [facility] Sodium 137 133 - 145 mmol/L LAB CHEMISTRY METHOD 02/25/2025 2:45 PM [facility] Potassium 5.0 3.5 - 5.5 mmol/L LAB CHEMISTRY METHOD 02/25/2025 2:45 PM [facility] Chloride 104 96 - 110 mmol/L LAB CHEMISTRY METHOD 02/25/2025 2:45 PM [facility] CO2 28 21 - 32 mmol/L LAB CHEMISTRY METHOD 02/25/2025 2:45 PM [facility] Anion Gap 5 3 - 11 LAB CHEMISTRY METHOD 02/25/2025 2:45 PM [facility] Glucose 120(H) 70 - 100 mg/dL LAB CHEMISTRY METHOD 02/25/2025 2:45 PM [facility] BUN 12 5 - 25 mg/dL LAB CHEMISTRY METHOD 02/25/2025 2:45 PM [facility] Creatinine 0.72 0.50 - 1.10 mg/dL LAB CHEMISTRY METHOD 02/25/2025 2:45 PM EDT [facility] eGFR 97 >=60 mL/min/1. 73m2 LAB CHEMISTRY METHOD 02/25/2025 2:45 PM T [facility] Comment:Calculation based on the Chronic Kidney Disease Epidemiology Collaboration (CKD-EPI) equation refit without adjustment for race. BUN/Creatinine Ratio 16.7 LAB CHEMISTRY METHOD 02/25/2025 2:45 PM EDT [facility] Calcium 9.6 8.5 - 10.5 mg/dL LAB CHEMISTRY METHOD 02/25/2025 2:45 PM [facility] AST (SGOT) 18 10 - 42 unit/L LAB CHEMISTRY METHOD 02/25/2025 2:45 PM [facility] ALT (SGPT) 37 10 - 60 unit/L LAB CHEMISTRY METHOD 02/25/2025 2:45 PM [facility] Alkaline Phosphatase 98 42 - 121 unit/L LAB CHEMISTRY METHOD 02/25/2025 2:45 PM [facility] Total Protein 7.1 6.0 - 8.0 g/dL LAB CHEMISTRY METHOD 02/25/2025 2:45 PM [facility] Albumin 3.2 3.2 - 5.0 g/dL LAB CHEMISTRY METHOD 02/25/2025 2:45 PM [facility] Total Bilirubin 0.3 0.0 - 1.4 mg/dL LAB CHEMISTRY METHOD 02/25/2025 2:45 PM [facility] Blood Venous blood specimen / Unknown Venipuncture / Unknown 02/25/2025 9:14 AM EDT 02/25/2025 9:14 AM EDT us Lex Rich MD LAB BLOOD ORDERA BLES Final Result [facility] [address] [place] [address], [place] [phone] * Hepatitis C antibody (07/12/2024 10:05 AM EST) Pathologist [facility] Hepatitis C Antibody Negative Negative LAB CHEMISTRY METHOD 07/12/2024 1:27 PM EST [facility] Blood Venous blood specimen / Unknown Venipuncture / Unknown 07/12/2024 10:05 AM EST 07/12/2024 10:05 AM EST Lex Rich MD LAB BLOOD ORDERA BLES Final Result [facility] [address] [place] [address], [place] [phone] * Colonoscopy (09/21/2023) Pathologist [facility] Colonoscopy no interpreta tion,abstr acted Anatomical Region Laterality Modality Other Historical Provider HEALTH MAINTENANCE Final Result from Last 3 Months or Most Recently Relevant to Health Maintenance Insurance [employer] Member Subscriber Plan / Payer (Ef fective 2022-Present) Name:MEHRAN ALEXANDRE Relation to Subscriber:Self Name:Mehran Alexandre Payer ID:[id number] Group ID:[id number] Type:Not on file Address: [address] [facility] [place] [id number] Care Teams Chief Business Officer Relationship Specialty Start Date End Date Lex Rich MD [address] [place] [address] PCP - General Internal Medicine 05/24/24
== END 2025-05-28 14:23 | disposition home or self-care (01) ==
LOC: HO.PMCPRC 13:14
PROVIDERS: PCP Family Medicine; Visit Provider Anesthesiology
DX: M47.816 Spondylosis without myelopathy or radiculopathy, lumbar region (principal)
CPT/HCPCS: 64493; 64494

== ENCOUNTER 2025-05-31 09:16 | Outpatient (AMB) | payer OTHER, SELFPAY ==
--- NOTE | 2025-05-31 09:24 | A.OFFVIS_ITS ---
Vital Signs 05/31/25 09:30 Height 5 ft Weight 121 lb BMI 23.6 BP 104/62 Blood Pressure Location Lt brachial Position Sitting Respiration 16 Pulse 107 H Pulse Source Pulse Oximeter Pulse Oximetry (%) 99 Oxygen Delivery Method Room Air Intake Visit Reasons: S/P Bilateral Diagnostic L3-L4-DR L5 MBB Spray Unit Feeder Required: No Accompanied by: niece Allergies No Known Allergies Allergy (Verified 05/31/25 09:29) HPI Comments Details: The patient is a 59-year-old female presenting for follow-up status post bilateral diagnostic L3-L4 DR L5 medial branch blocks. Patient reports no improvement in the hours after the injections. Previously underwent bilateral diagnostic sacroiliac joint injections with good relief. The patient has a history of osteoporosis, which has not yet been treated with medication. A recent bone density test indicated a T-score of -2.7, confirming the diagnosis of osteoporosis. She has a follow-up with her doctor to discuss bone density results later today. Additionally, the patient experiences neuropathy, characterized by nerve damage and symptoms such as numbness, weakness, and tingling in her legs. She has been started on pregabalin by her neurologist, Dr. Dotson, after gabapentin was found to be ineffective. - Onset: Chronic pain with no relief from diagnostic medial branch blocks - Quality: Persistent pain in the lower back - Radiation: Pain radiates down the legs, with numbness, weakness, and tingling - Exacerbating factors: Ineffective relief from recent injections - Relieving factors: Diagnostic injections provided no relief [facility] Medical History (Updated 05/23/25 @ 09:56 by Mejia Dotson MD) CAD (coronary artery disease) Idiopathic pulmonary fibrosis Polymyalgia rheumatica Social History Household Members: None Housing: Apartment Do you presently have visiting nurse or other home services: No (AWAITING proposal director) Patient Tobacco Use Status: Never used Tobacco e-Cigarette/Vaping Use: Never Used service: No Review of Systems Narrative - Musculoskeletal: Reports chronic sacroiliac joint pain and lower back pain - Neurological: Reports numbness, weakness, and tingling in legs - Endocrine: Reports osteoporosis Physical Exam Exam Exam: General: awake, alert, oriented. Answers questions appropriately. Fully engaged in examination. Skin: warm, dry, intact HEENT: Normocephalic. Hearing intact. Cardiac: External chest normal in appearance. Respiratory: No cough, audible wheezing or stridor. Abdomen: without gross distension. MS: No obvious swelling or deformities. Neurological: Oriented to person, place, time and situation. Thought process intact. Ambulates with the use of a cane Psychiatric: Appropriate mood and affect. Good judgment and insight. Vital Signs: Last Vital Signs Pulse 107 H 05/31/25 09:30 Resp 16 05/31/25 09:30 BP 104/62 05/31/25 09:30 Pulse Ox 99 05/31/25 09:30 Oxygen Delivery Method Room Air 05/31/25 09:30 BMI result Body Mass Index 23.6 Results Reviewed Results Reviewed: - Bone Density Test: T-score of -2.7 lumbar spine indicating osteoporosis 12/03/24 XR/XR lumbar spine 4V min Endplate sclerosis and decreased intervertebral disc height at L5-S1. Mild multilevel endplate sclerosis and decreased intervertebral disc height lower thoracic spine. No acute cortical disruption. No gross malalignment. IMPRESSION: Mild multilevel thoracolumbar spondylosis. 09/23/2024 3 view, pelvis and left hip Findings: The bones are intact. No significant arthritic change. The soft tissues are unremarkable. IMPRESSION: No acute findings. Assessment & Plan Assessment & Plan (1) Leg weakness: Code(s): R29.898 - Other symptoms and signs involving the musculoskeletal system Category: Medical (2) Lumbar spondylosis: Code(s): M47.816 - Spondylosis without myelopathy or radiculopathy, lumbar region Category: Medical (3) Chronic pain syndrome: Code(s): G89.4 - Chronic pain syndrome Category: Medical (4) Sacroiliac joint dysfunction of both sides: Code(s): M53.3 - Sacrococcygeal disorders, not elsewhere classified Category: Medical (5) Myalgia: Code(s): M79.10 - Myalgia, unspecified site Category: Medical (6) Polymyalgia rheumatica: Code(s): M35.3 - Polymyalgia rheumatica Category: Medical Plan The plan includes ordering an MRI to further evaluate the lower back pain and determine any underlying issues beyond the sacroiliac joint. Given the osteoporosis diagnosis, caution will be exercised with steroid use, opting for minimal amounts to avoid exacerbating the condition. The patient will follow up with PCP to discuss medication for osteoporosis For neuropathy, the patient has been transitioned to pregabalin, as gabapentin was ineffective by Neurology. Follow-up with the neurologist will continue to monitor the effectiveness of this treatment. Patient will follow up in our office after MRI. Patient was informed and verbally consented to the use of an ambient scribe for clinic note documentation during this visit. Orders: Orders MR lumbar spine wo con Today G89.4 - Chronic pain syndrome, M47.816 - Spondylosis without myelopathy or radiculopathy, lumbar region, R29.898 - Other symptoms and signs involving the musculoskeletal system Patient Instructions: - Schedule and attend the MRI appointment for further evaluation of back pain. - Follow up with your neurologist to monitor the effectiveness of pregabalin. - Begin osteoporosis treatment as recommended by your healthcare provider. - Avoid excessive use of steroids to prevent worsening osteoporosis. Coding Level of Care Code Est Pt Level 3 (24060) Complex EM visit Add On G2211 Diagnoses Leg weakness R29.898 Lumbar spondylosis M47.816 Chronic pain syndrome G89.4 Sacroiliac joint dysfunction of both sides M53.3 Myalgia M79.10 Polymyalgia rheumatica M35.3
[2025-05-31 09:30] VITALS: BP 104/62; PULSE 107; RESP 16; O2SAT 99; BMI 23.6
--- OUTSIDE RECORDS SUMMARY | 2025-05-31 10:26 | XMS_ITS | Clinical Summary ---
Author Organization [facility] Address [address] [address] Phone Care Team Providers Care Sawmill Equipment Operator Name Role Phone Lex Rich MD [...] incisional pain. Directed to follow-up with her wood getter Dr. Hernandez in regards to her pulmonary [...] - 03/05/2025 11:59 PM EDT Hospital Encounter [facility] PATHOLOGY VIRTUAL DEPARTMENT [address] [place] [address] Discharge Disposition: Home or Self [...] patient's age to complete this topic IPV VACCINES Aged Out No longer eligi ble [...] PATHOLOGY REVIEW Routine 03/05/2025 12:00 AM EDT from Last 3 Months Results * Outside Pathology Review (03/05/2025 12:00 AM EDT) 03/05/2025 03/05/2025 7:3 6 AM EDT Narrative SEE NARRATIVE - 03/06/2025 11:43 [place] [address] Surgical Pathology Outside Consultation Patient Name: PATRICIA ALEXANDRE : 1965 (Age: 59) Sex: F Location: [facility] Institution: [facility] Date of Reported: 03/06/2025 11:43 Results To: Jack Gibbons MD FINAL PATHOLOGIC DIAGNOSIS: A. LUNG, RIGHT UPPER LOBE, WEDGE RESECTION ([id number] A1; 12/06/2023): Patchy interstitial fibrosis with lymphoplasmacytic cell infiltrates. See note. B. LUNG, RIGHT MIDDLE LOBE, WEDGE RESECTION ([id number] B1, B2; 12/06/2023): Patchy interstitial fibrosis with lymphoplasmacytic cell infiltrates. See note. C. LUNG, RIGHT LOWER LOBE, WEDGE RESECTION ([id number] C1, C2; 12/06/2023): Patchy interstitial fibrosis with [...] A: LUNG, RIGHT UPPER LOBE, WEDGE RESECTION ([id number] A1; 12/06/2023) B: LUNG, RIGHT MIDDLE LOBE, WEDGE RESECTION ([id number] B1, B2; 12/06/2023) C: LUNG, RIGHT LOWER LOBE, WEDGE RESECTION ([id number] C1, C2; 12/06/2023) SLIDE-BLOCK DESCRIPTION: Consult materials received from [place] on 02/27/2025. A. LUNG, RIGHT UPPER LOBE, WEDGE RESECTION ([id number] A1; 12/06/2023): Stained Slides: 1 Unstained slides: 0 Blocks: 0 B. LUNG, RIGHT MIDDLE LOBE, WEDGE RESECTION ([id number] B1, B2; 12/06/2023): Stained Slides: 2 Unstained slides: 0 Blocks: 0 C. LUNG, RIGHT LOWER LOBE, WEDGE RESECTION ([id number] C1, C2; 12/06/2023): Stained Slides: 2 Unstained slides: 0 Blocks: 0 us Jack Gibbons MD PATHOLOGY ORDERABLES Final Result SEE NARRATIVE * Anatomic Pathology (Non-MGB) (03/05/2025 12:00 AM EDT) [place] [address] Surgical Pathology Outside Consultation Patient Name: PATRICIA ALEXANDRE : 1965 (Age: 59) Sex: F Location: [facility] Institution: [facility] Date of Reported: 03/06/2025 11:43 Results To: Jack Gibbons MD FINAL PATHOLOGIC DIAGNOSIS: A. LUNG, RIGHT UPPER LOBE, WEDGE RESECTION ([id number] A1; 12/06/2023): Patchy interstitial fibrosis with lymphoplasmacytic cell infiltrates. See note. B. LUNG, RIGHT MIDDLE LOBE, WEDGE RESECTION ([id number] B1, B2; 12/06/2023): Patchy interstitial fibrosis with lymphoplasmacytic cell infiltrates. See note. C. LUNG, RIGHT LOWER LOBE, WEDGE RESECTION ([id number] C1, C2; 12/06/2023): Patchy interstitial fibrosis with [...] A: LUNG, RIGHT UPPER LOBE, WEDGE RESECTION ([id number] A1; 12/06/2023) B: LUNG, RIGHT MIDDLE LOBE, WEDGE RESECTION ([id number] B1, B2; 12/06/2023) C: LUNG, RIGHT LOWER LOBE, WEDGE RESECTION ([id number] C1, C2; 12/06/2023) SLIDE-BLOCK DESCRIPTION: Consult materials received from [place] on 02/27/2025. A. LUNG, RIGHT UPPER LOBE, WEDGE RESECTION ([id number] A1; 12/06/2023): Stained Slides: 1 Unstained slides: 0 Blocks: 0 B. LUNG, RIGHT MIDDLE LOBE, WEDGE RESECTION ([id number] B1, B2; 12/06/2023): Stained Slides: 2 Unstained slides: 0 Blocks: 0 C. LUNG, RIGHT LOWER LOBE, WEDGE RESECTION ([id number] C1, C2; 12/06/2023): Stained Slides: 2 Unstained slides: 0 Blocks: 0 [facility] Clinical History Interstitial lung disease [facility] Final Diagnosis A. LUNG, RIGHT UPPER LOBE, WEDGE RESECTION ([id number] A1; 12/06/2023): Patchy interstitial fibrosis with lymphoplasmacytic cell infiltrates. See note. B. LUNG, RIGHT MIDDLE LOBE, WEDGE RESECTION ([id number] B1, B2; 12/06/2023): Patchy interstitial fibrosis with lymphoplasmacytic cell infiltrates. See note. C. LUNG, RIGHT LOWER LOBE, WEDGE RESECTION ([id number] C1, C2; 12/06/2023): Patchy interstitial fibrosis with [...] chronic hypersensitivity pneumonitis. Clinical correlation is recommended. [facility] Slide-Block Description Consult materials received from [place] on 02/27/2025. A. LUNG, RIGHT UPPER LOBE, WEDGE RESECTION ([id number] A1; 12/06/2023): Stained Slides: 1 Unstained slides: 0 Blocks: 0 B. LUNG, RIGHT MIDDLE LOBE, WEDGE RESECTION ([id number] B1, B2; 12/06/2023): Stained Slides: 2 Unstained slides: 0 Blocks: 0 C. LUNG, RIGHT LOWER LOBE, WEDGE RESECTION ([id number] C1, C2; 12/06/2023): Stained Slides: 2 Unstained slides: 0 Blocks: 0 [facility] Conversion Type (Conversion Source) 03/05/2025 03/05/2025 7:36 AM EDT Conversion Type (Conversion Source) 03/05/2025 03/05/2025 7:36 AM EDT Conversion Type (Conversion Source) 03/05/2025 03/05/2025 7:36 AM EDT Jack Gibbons MD LAB PATHOLOGY ORDERABLES E dited Result - Final [facility] [address] [place] [address] from Last 3 Months Insurance [facility] [place] [id number] CARE MEDICARE REPLACEMENT CARE MEDICARE REPLACEMENT [facility] CARE MEDICARE [place] [address] [place] [address] CARE MEDICARE REPLACEMENT MEDICARE REPLACEMENT CHANDNI SHERMAN [id number] Care Teams Sawmill Equipment Operator Relationship Specialty Start Date End Date Lex Rich MD PCP - General Family Medicine 02/20/24 Additional Source Comments The information contained in this document represents components of the legal health record. It is not the complete legal health record.[facility]
--- OUTSIDE RECORDS SUMMARY | 2025-05-31 10:26 | XMS_ITS | Data Portability ---
Author Organization [employer] Address [address] [place] [address] Care Team Providers Care Convex Grinder Operator Name Role Phone HIM CCA OTHER Assessment Encounter Date Assessment Date Assessment LastModified by Organization Details LastModified Time 12/13/2023 12/13/2023 I provided real -time medical direction via phone for this encounter and was available for additional phone-based assistance as needed. I have reviewed and agree with the Assessment and Plan as documented by the Machine Fur Cleaner. Patient given the opportunity to ask questions. Our service contacted for an assessment of: Chronic pain As per above, patient with hx of chronic pain. No new or worsening red S&S. No new bowel/bladder symptoms. No new gait abnl. No new neurological signs, symptoms or deficits. Per metal polisher and buffer apprentice on the scene, VSS, non-toxic. Neuro grossly [...] in the field was performed by my metal polisher and buffer apprentice colleague, as noted above, I provided real-time [...] [degF] 17 /min 120/75 mm[Hg] Not Available Anago 4 13:40:20 Date Recorded Heart rate Body temperature Respiratory rate Oxygen saturation Oxygen saturation in Arterial blood by Pulse oximetry Systolic And Diastolic Provider Name and Address Organization Details Last Updated DateTime 4 82 /min 98.7 [degF] 16 /min 98 % 98 % 120/76 mm[Hg] Not Available [facility] 4 19:15:34 Social History None recorded. Functional Status None recorded. Mental Status None recorded. Family History Nothing Reported. Medical History No medical history recorded. Gynecological HistoryNo gynecological history recorded. Obstetrics History GPAL:G 0 P 0 0 0 0 Past Encounters Encounter ID Performer Location Encounter Start Date Encounter Closed Date Diagnosis/Indication Diagnosis SNOMED-CT Code Diagnosis ICD10 Code Diagnosis IMO Codes Diagnosis Note [id number] Mariella Castro MD [facility] - [address] [address] 12/13/2023 13:40:10 12/13/2023 17:51:43 Chronic pain [id number] G89.29 [id number] Hafsa Angel MD [facility] [address] [place] [phone] 12/14/2023 19:15:30 12/15/2023 11:44:34 Erythematous rash [id number] R21 Health Concerns Section Related Observation LastModified by Organization Detai ls LastModified Time None Recorded Concern Status LastModified by Organization Details LastModified Time None Recorded Advance Directives Directive None Recorded Payers Insurance Date Sequence Insurance Name Policy Number Policy Haywood Covered Member ID Haywood Member ID Guarantor Name 12/12/2023 1 [facility] - DOS ON OR AFTER 2022 - DUAL ELIGIBLE - [employer] OPTIONS AND ONE CARE (MEDICARE REPLACEMENT/ADV ANTAGE - HMO) Patricia Alexandre [id number] Patricia Alexandre Notes Date Note Type Note [...] ................. ................. ................. ................. ................. ................. ..... Machine Fur Cleaner Note From Elena Chahal: 58y F c/o [...] ................. ..... Disposition: Cole Castro MD [address] [facility],[address], [place], [address], JULIAN - CRIS CORTEZ 12/13/2023 13:48:03 12/14/2023 text/html CRC Nurse Triage Notes (Danelle Cotton): Reason For Request: Follow up from surgery /muscular spasms Chief Complaints: Pain PMH: Other Allergies: Unknown Comments: Flanging Machine Operator verified the member's name//address and phone number. Member is a 58 yr old female, syriac speaking PMH Son calling for member, had [...] reported s/s and [facility]: spasms of right arm are chronic. [...] ................. ................. ................. ................. ................. ................. ........ Machine Fur Cleaner Note From Caden Bennett: Dispatched to the [...] ..... Disposition: Fulfilled Hafsa Angel MD [address] [facility],[address], [place], [address], [employer] 12/14/2023 21:13:02 OBGyn Episode No OBEpisode recorded.
--- OUTSIDE RECORDS SUMMARY | 2025-05-31 10:26 | XMS_ITS | Encounter Summary ---
Author Organization [employer] Address [address] [facility] [address] [place] [address] Care Team Providers Care E Commerce Analyst Name Role Phone Unavailable Primary Care Provider Unavailabl e Reason for Visit * Reason Onset Date Comments New Patient 04/12/2023 Encounter Details Date Type Department Care Team (Late st Contact Info) Description 04/12/2023 Telephone [facility] [address] [place] [address] Oumar Chen MD [address] [place] [address] New Patient Social History Tobacco Use Types [...] PM EDT Tc to pt, to offer Crew Clerk appt, No answer answer, could not leave voicemail due to not being set up . documented in this encounter Plan of Treatment Not on file documented as of this encounter Visit Diagnoses Not on filedocumented in this encounter
--- OUTSIDE RECORDS SUMMARY | 2025-05-31 10:26 | XMS_ITS | Clinical Summary ---
Author Organization [facility] Mobile Address [address] [place], [place] [address] Phone Care Team Providers Care Woodworking Shop Laborer Name Role Phone Lex Rich MD Primary [...] %) nebulizer solutionIndicatio ns:ILD (interstitial lung disease) ([facility] V24, [facility] V28) Take 3 mL (2.5 mg total) [...] without long-term current use of insulin ([facility] V24, [facility] V28) TAKE 1 CAPSULE BY MOUTH THREE TIMES A DAY 270 capsule 025 Active baclofen (LIORESAL) 10 mg tabletIndications :Polymyalgia rheumatica ([facility] V24) TAKE 1 TABLET BY MOUTH THREE TIMES A DAY 270 tablet 1 025 Active gabapentin (NEURONTIN) 300 mg capsuleIndication s:Type 2 diabetes mellitus with diabetic polyneuropathy, without long-term current use of insulin ([facility] V24, [facility] V28) Take 1 capsule (300 mg total) by mouth 3 (three) times a day. 270 each 025 2024 Discontinued baclofen (LIORESAL) 10 mg tabletIndications :Polymyalgia rheumatica ([facility] V24) Take 1 tablet (10 mg [...] complication, without long-term current use of insulin ([facility] V24, [facility] V28) 10/21/2024 Assessment & Plan (11/22/2024 1:27 [...] Future Bilateral calcaneal spurs 10/19/2024 Polymyalgia rheumatica ([facility] V24) 10/18/2024 Assessment & Plan (11/22/2024 1:27 [...] incisional pain. Directed to follow-up with her student teaching coordinator Dr. Hernandez in regards to her pulmonary fibrosis. Will follow-up with the thoracic surgical department moving forward on a as needed basis and to contact the thoracic surgery department should she have any further questions or concerns in the future. Assessment & Plan (02/22/2025 12:02 PM EDT): Continue pulmonology follow-up both locally and in [place]. She knew continue prednisone and Ofev as prescribed by her student teaching coordinator. Hyperlipidemia 06/27/2023 Assessment & Plan (02/22/2025 12:02 [...] 05/16/2025 11:45 AM EDT Office Visit Pulmonology [facility] [address] [phone] Aysha Hernandez MD ILD (interstitial lung disease) ([facility] V24, [facility] V28) (Primary Dx); Connective tissue disease ([facility] V24) 05/16/2025 Results Follow-Up Adult Medicine [address] [phone] Christianne Vidales PA 05/10/2025 10:28 AM EDT - 05/10/2025 11:59 PM EDT Hospital Encounter Bone Density - [address] [phone] Osteopenia, unspecified location Discharge Disposition: Home or Self Care 04/11/2025 2:00 PM EDT Office Visit Pulmon[address] [phone] Aysha Hernandez MD ILD (interstitial lung disease) ([facility] V24, [facility] V28) (Primary Dx) 04/04/2025 10:00 AM EDT Office Visit Orthopedic Surgery [facility] [address] [phone] Diony Toledo DPM Rheumatoid arthritis involving both feet with positive rheumatoid factor ([facility] V24, [facility] V28) (Primary Dx); Follow-up exam; Diabetic mononeuropathy simplex ([facility] V24, [facility] V28); Neuritis 03/19/2025 8:45 AM EDT Office Visit Pulmonology [facility] [address] [phone] Aysha Hernandez MD ILD (interstitial lung disease) ([facility] V24, [facility] V28) (Primary Dx); Pulmonary fibrosis ([facility] V24, [facility] V28) 03/13/2025 10:41 AM EDT - 03/13/2025 11:59 PM EDT Hospital Encounter Radiology Department - [address] [phone] Encounter for screening mammogram for breast cancer Discharge Disposition: Home or Self Care 03/12/2025 2:43 PM EDT - 03/12/2025 11:59 PM EDT Hospital Encounter Radiology Department - [address] [phone] Pressure in head Discharge Disposition: Home or Self Care from Last 3 Months Immunizations Immunization Administration [...] SURGERY CARDIAC CATHETERIZATION DONE ON 04/24/2024 AT [facility] W KM INDICATIONS CHEST PAIN Medical History [...] care for your loved ones. For example, child's nurse or elderly care for an older adult? [...] 11:00 AM EST Office Visit Adult Medicine [facility] [address] [place] [address] Lex Rich MD [address] [place] [address] 07/15/2025 9:00 AM EST Office Visit Pulmonology - [place] 175 [facility] 200 [place] [phone] Aysha Hernandez MD [address] [place] [phone] 08/02/2025 1:00 PM EST Consult [facility] for [place] - [place] 175 [facility] [address] [place] [phone] Arpita Willis PA [address] [place] [phone] 08/06/2025 10:15 AM EST Office Visit Orthopedic Surgery - [place] 250 175 [facility] 250 [place] [phone] Diony Toledo, DPM [address] [phone] Health Maintenance Due Date Last Done Comments [...] 2:47 PM EDT ILD (interstitial lung disease) ([facility] V24, [facility] V28) CBC AND DIFFERENTIAL Routine 04/11/2025 2:47 [...] feet with positive rheumatoid factor (CMS/HCC V24, [facility] V28) MG MAMMO DIGITAL SCREENING W NEMESIO BILAT Routine 03/13/2025 10:57 AM EDT Encounter for screening mammogram for breast cancer MR BRAIN WO AND W CONTRAST Routine 03/12/2025 3:45 PM EDT Pressure in head MICROALBUMIN CREATININE URINE RATIO Routine 02/25/2025 9:14 AM EDT Type 2 diabetes mellitus with diabetic polyneuropathy, without long-term current use of insulin ([facility] V24, [facility] V28) COMPREHENSIVE METABOLIC PANEL Routine 02/25/2025 9:14 AM EDT Mixed hyperlipidemia HEMOGLOBIN A1C Routine 02/25/2025 9:14 AM EDT Type 2 diabetes mellitus with diabetic polyneuropathy, without long-term current use of insulin ([facility] V24, [facility] V28) LIPID PANEL WITH REFLEX TO DIRECT LDL Routine 02/25/2025 9:14 AM EDT Mixed hyperlipidemia HEPATITIS C ANTIBODY Routine 07/12/2024 10:05 AM [...] to have osteoporosis by WHO criteria. The [facility] Department of Internal Medicine recommends [...] alternative screening schedule based on juany Iraheta., [facility] August 12, 2011 for patients with [...] Signed Date: 05/13/2025 12:50 ET Workstation ID: [id number] Transcribed By: Self Edit Transcribed Date: 05/13/2025 [...] to have osteoporosis by WHO criteria. The [facility] Department of Internal Medicine recommendsusing [...] alternative screening schedule based on juany Iraheta., [facility] for patients with osteopenia (based [...] Signed Date: 05/13/2025 12:50 ET Workstation ID: [id number] Transcribed By: Self Edit Transcribed Date: 05/13/2025 12:49 ET Lex Rich MD IMG DXA PROCEDUR ES Final Result * (ABNORMAL) CBC auto differential (04/11/2025 2:47 PM EDT) Pathologist [facility] WBC 9.5 4.8 - 10.8 K/mcL LAB HEMETOLOGY METHOD 04/11/2025 6:27 PM EDT [facility] RBC 4.30 3.80 - 4.80 M/mcL LAB HEMETOLOGY METHOD 04/11/2025 6:27 PM EDT [facility] Hemoglobin 12.8 11.5 - 16.0 g/dL LAB HEMETOLOGY METHOD 04/11/2025 6:27 PM EDT [facility] Hematocrit 40.2 35.0 - 47.0 % LAB HEMETOLOGY METHOD 04/11/2025 6:27 PM EDT [facility] MCV 93.9 79.0 - 98.0 FL LAB HEMETOLOGY METHOD 04/11/2025 6:27 PM EDT [facility] MCH 29.9 27.0 - 32.0 pcg LAB HEMETOLOGY METHOD 04/11/2025 6:27 PM EDT [facility] MCHC 31.8(L) 32.0 - 37.0 g/dL LAB HEMETOLOGY METHOD 04/11/2025 6:27 PM EDT [facility] RDW 14.8 11.0 - 15.0 % LAB HEMETOLOGY METHOD 04/11/2025 6:27 PM EDT [facility] Platelets 526(H) 130 - 400 K/mcL LAB HEMETOLOGY METHOD 04/11/2025 6:27 PM EDT [facility] MPV 9.5 7.0 - 11.0 FL LAB HEMETOLOGY METHOD [facility] NRBC 0.0 <1.0 % LAB HEMETOLOGY METHOD 04/11/2025 6:[address] [facility] NRBC Absolute 0.00 <0.10 K/mcL LAB HEMETOLOGY METHOD 04/11/2025 6:[address] [facility] Neutrophils Relative 68.7 % LAB HEMETOLOGY METHOD 04/11/2025 6:[address] [facility] Lymphocytes Relative 25.8 % LAB HEMETOLOGY METHOD 04/11/2025 6:[address] [facility] Monocytes Relative 3.9 % LAB HEMETOLOGY METHOD 04/11/2025 6:[address] [facility] Eosinophils Relative 0.1 % LAB HEMETOLOGY METHOD 04/11/2025 6:[address] [facility] Basophils Relative 0.9 % LAB HEMETOLOGY METHOD 04/11/2025 6:[address] [facility] Immature Granulocytes Relative 0.6 % LAB HEMETOLOGY METHOD 04/11/2025 6:[address] [facility] Neutrophils Absolute 6.55 1.50 - 7.00 K/mcL LAB HEMETOLOGY METHOD 04/11/2025 6:[address] [facility] Lymphocytes Absolute 2.46 1.00 - 5.00 K/mcL LAB HEMETOLOGY METHOD 04/11/2025 6:[address] [facility] Monocytes Absolute 0.37 0.20 - 1.00 K/mcL LAB HEMETOLOGY METHOD 04/11/2025 6:[address] [facility] Eosinophils Absolute 0.01 0.00 - 0.50 K/mcL LAB HEMETOLOGY METHOD 04/11/2025 6:[address] [facility] Basophils Absolute 0.09 0.00 - 0.20 K/mcL LAB HEMETOLOGY METHOD 04/11/2025 6:27 PM EDT [facility] Immature Granulocytes Absolute 0.06(H) 0.00 - 0.03 K/mcL LAB HEMETOLOGY METHOD 04/11/2025 6:27 PM EDT [facility] Blood Venous blood specimen / Unknown Venipuncture / Unknown 04/11/2025 2:47 PM EDT 04/11/2025 2:47 PM EDT us Aysha Hernandez MD LAB BLOOD ORDERABLES Final Resul t [facility] [address] [place] [address], [place] [phone] * XR Foot 3+ Views bilat (04/04/2025 [...] talus navicular joint to calcaneal cuboid joint us Diony Toledo DPM IMG XR PROCEDURES Final R esult * Injection tendon or ligament (04/04/2025 10:00 AM EDT) Narrative Diony Toledo DPM - 04/04/2025 10:00 AM EDT Diony Toledo DPM 04/04/2025 12:24 PM Injection tendon or ligament Indications: pain Details: 25 G needle Medications: 0.5 mL lidocaine (PF) 1 %; 20 mg triamcinolone acetonide 40 mg/mL Informed Consent: Site: Foot ligament tendon Diony [facility]NERM IN CLINIC/BEDSIDE ORDERAB LES Final Result * [...] is recommended in 1 year. Mammo Location: [facility], [address] [place] [address], [address], . -------- FINAL REPORT -------- Dictated By: Maya Garcia Dictated Date: 03/14/2025 11:23 ET Assigned Physician: Maya Garcia Reviewed and Electronically Signed By: Maya Garcia Signed Date: 03/14/2025 11:27 ET Workstation ID: [id number] Transcribed By: Self Edit Transcribed Date: 03/14/2025 [...] is recommended in 1 year. Mammo Location: [facility], [address] [place] [address], [address], . -------- FINAL REPORT -------- Dictated By: Maya Garcia Dictated Date: 03/14/2025 11:23 ET Assigned Physician: Maya Garcia Reviewed and Electronically Signed By: Maya Garcia Signed Date: 03/14/2025 11:27 ET Workstation ID: [id number] Transcribed By: Self Edit Transcribed Date: 03/14/2025 [...] Signed Date: 03/12/2025 17:45 ET Workstation ID: [id number] Transcribed By: Self Edit Transcribed Date: 03/12/2025 [...] Signed Date: 03/12/2025 17:45 ET Workstation ID: [id number] Transcribed By: Self Edit Transcribed Date: 03/12/2025 17:33 ET us Lex Rich MD [facility] MRI PROCEDUR ES Final Result * Lipid panel with reflex to direct LDL (02/25/2025 9:14 AM EDT) Cholesterol 181 0 - 200 mg/dL LAB CHEMISTRY METHOD 02/25/2025 2:45 PM EDT [facility] Triglycerides 61 0 - 150 mg/dL LAB CHEMISTRY METHOD 02/25/2025 2:45 PM EDT [facility] HDL 72 >=40 mg/dL LAB CHEMISTRY METHOD 02/25/2025 2:45 PM EDT [facility] LDL Calculated 97 0 - 100 mg/dL LAB CHEMISTRY METHOD 02/25/2025 2:45 PM EDT [facility] VLDL Cholesterol Tamir 12.2 mg/dL LAB CHEMISTRY METHOD 02/25/2025 2:45 PM EDT [facility] Non HDL Chol. (LDL+VLDL) 109 <145 mg/dL LAB CHEMISTRY METHOD 02/25/2025 2:45 PM EDT [facility] Chol/HDL Ratio 2.5 0.0 - 4.4 LAB CHEMISTRY METHOD 02/25/2025 2:45 PM EDT [facility] Blood Venous blood specimen / Unknown Venipuncture / Unknown 02/25/2025 9:14 AM EDT 02/25/2025 9:14 AM EDT us Lex Rich MD LAB BLOOD ORDERA BLES Final Result [facility] [address] [place] [address], [place] [phone] * Microalbumin creatinine urine ratio (02/25/2025 9:14 AM EDT) Creatinine, Urine 43.0 mg/dL LAB CHEMISTRY METHOD 02/25/2025 11:30 AM EDT [facility] Microalb, Ur <5.0 0.0 - 29.0 mg/L LAB CHEMISTRY METHOD 02/25/2025 11:30 AM EDT [facility] Microalb/Creat Ratio <12 <30 mg/g creat LAB CHEMISTRY METHOD 02/25/2025 11:30 AM EDT [facility] Urine Urine specimen obtained by clean catch procedure / Unknown Non-blood Collection / Unknown 02/25/2025 9:14 AM EDT 02/25/2025 9:14 AM EDT Lex Rich MD LAB URINE ORDERA BLES Final Result Performing Organization Address City/[facility]/ZIP Co de Phone Number [facility] [address] [place] [address], [place] [phone] * Hemoglobin A1c (02/25/2025 9:14 AM EDT) [facility] Hemoglobin A1C 5.9 <6.5 % LAB CHEMISTRY METHOD 02/25/2025 12:22 PM EDT [facility] Mean Bld Glu Estim. 123 mg/dL LAB CHEMISTRY METHOD 02/25/2025 12:22 PM EDT [facility] Blood Venous blood specimen / Unknown Venipuncture / Unknown 02/25/2025 9:14 AM EDT 02/25/2025 9:14 AM EDT Lex Rich MD LAB BLOOD ORDERA BLES Final Result Performing Organization Address [facility]/ZIP Co de Phone Number [facility] [address] [place] [address], [place] [phone] * (ABNORMAL) Comprehensive metabolic panel (02/25/2025 9:14 AM EDT) Sodium 137 133 - 145 mmol/L LAB CHEMISTRY METHOD 02/25/2025 2:[address] [facility] Potassium 5.0 3.5 - 5.5 mmol/L LAB CHEMISTRY METHOD 02/25/2025 2:[address] [facility] Chloride 104 96 - 110 mmol/L LAB CHEMISTRY METHOD 02/25/2025 2:[address] [facility] CO2 28 21 - 32 mmol/L LAB CHEMISTRY METHOD 02/25/2025 2:[address] [facility] Anion Gap 5 3 - 11 LAB CHEMISTRY METHOD 02/25/2025 2:[address] [facility] Glucose 120(H) 70 - 100 mg/dL LAB CHEMISTRY METHOD 02/25/2025 2:[address] [facility] BUN 12 5 - 25 mg/dL LAB CHEMISTRY METHOD 02/25/2025 2:[address] [facility] Creatinine 0.72 0.50 - 1.10 mg/dL LAB CHEMISTRY METHOD 02/25/2025 2:[address] [facility] eGFR 97 >=60 mL/min/1. 73m2 LAB CHEMISTRY METHOD 02/25/2025 2:[address] [facility] Comment:Calculation based on the Chronic Kidney Disease Epidemiology Collaboration (CKD-EPI) equation refit without adjustment for race. BUN/Creatinine Ratio 16.7 LAB CHEMISTRY METHOD 02/25/2025 2:[address] [facility] Calcium 9.6 8.5 - 10.5 mg/dL LAB CHEMISTRY METHOD 02/25/2025 2:[address] [facility] AST (SGOT) 18 10 - 42 unit/L LAB CHEMISTRY METHOD 02/25/2025 2:[address] [facility] ALT (SGPT) 37 10 - 60 unit/L LAB CHEMISTRY METHOD 02/25/2025 2:45 PM EDT [facility] Alkaline Phosphatase 98 42 - 121 unit/L LAB CHEMISTRY METHOD 02/25/2025 2:45 PM EDT [facility] Total Protein 7.1 6.0 - 8.0 g/dL LAB CHEMISTRY METHOD 02/25/2025 2:45 PM EDT [facility] Albumin 3.2 3.2 - 5.0 g/dL LAB CHEMISTRY METHOD 02/25/2025 2:45 PM EDT [facility] Total Bilirubin 0.3 0.0 - 1.4 mg/dL LAB CHEMISTRY METHOD 02/25/2025 2:45 PM EDT [facility] Blood Venous blood specimen / Unknown Venipuncture / Unknown 02/25/2025 9:14 AM EDT 02/25/2025 9:14 AM EDT Lex Rich MD LAB BLOOD ORDERA BLES Final Result [facility] [address] [place] [address], [place] [phone] * Hepatitis C antibody (07/12/2024 10:05 AM EST) Hepatitis C Antibody Negative Negative LAB CHEMISTRY METHOD 07/12/2024 1:27 PM EST [facility] Blood Venous blood specimen / Unknown Venipuncture / Unknown 07/12/2024 10:05 AM EST 07/12/2024 10:05 AM EST Lex Rich MD LAB BLOOD ORDERA BLES Final Result [facility] [address] [place] [address], [place] [phone] * Hm Colonoscopy (09/21/2023) HM Colonoscopy no interpreta tion,abstr acted Anatomical Region Laterality Modality Other Historical Provider HEALTH MAINTENANCE Final Result from Last 3 Months or Most Recently Relevant to Health Maintenance Insurance [employer] MEDICARE Member Subscriber Plan / Payer (Ef fective 2022-Present) Name:JARED MEHRAN Relation to Subscriber:Self Name:Mehran Alexandre Payer ID:[id number] Group ID:[id number] Type:Not on file Address: [place] [address] [address] [phone] Care Teams Woodworking Shop Laborer Relationship Specialty Start Date End Date Lex Rich MD [address] [place] [phone] PCP - General Internal Medicine 05/24/24
--- OUTSIDE RECORDS SUMMARY | 2025-05-31 10:26 | XMS_ITS | Encounter Summary ---
Author Organization [facility] Address [address] [place] [address] Care Team Providers Care Shank Boner Name Role Phone Lex Rich MD Primary Care Pr ovider Encounter Details Date Type Department Care Team (Late Contact Info) Description 09/27/2024 Lab Requisition [facility] - Main Lab 299 [facility] [place] [address] Mainor Crawford MD [address] [place] [address], [phone] Polymyalgia rheumatica (CMS/HCC V24) Social History [...] Upcoming Encounters Date Type Department Care Team ([facility] Contact Info) Description 05/31/2025 11:00 AM EST Office Visit Adult Medicine [address] [phone] Lex Rich MD [address] [place] [phone] 07/15/2025 9:00 AM EST Office Visit Pulmonology - [place] 175 [facility] 200 [place] [phone] Aysha Hernandez MD [address] [place] [phone] 08/02/2025 1:00 PM EST Consult [facility] for [place] - [place] 175 [facility] 150 [place] [phone] Arpita Willis PA [address] [place] [phone] 08/06/2025 10:15 AM EST Office Visit Orthopedic Surgery - [place] 250 175 [facility] 250 [place] [phone] Diony Toledo DPM 175 [facility] 250 [place] [phone] documented as of this encounter Procedures Procedure Name Priority Date/Time Associated Diagnosis Comments COMPLETE BLOOD COUNT Routine 09/27/2024 4:53 AM EST Polymyalgia rheumatica ([facility]/HCC) COMPREHENSIVE METABOLIC PANEL Routine 09/27/2024 4:53 AM EST Polymyalgia rheumatica ([facility]/HCC) documented in this encounter Results * (ABNORMAL) [...] mmol/L LAB CHEMISTRY METHOD 09/27/2024 10:15 AM [facility] Anion Gap 7 3 - 11 LAB CHEMISTRY METHOD 09/27/2024 10:15 AM [facility] Glucose 108(H) 70 - 100 mg/dL LAB CHEMISTRY METHOD 09/27/2024 10:15 AM [facility] BUN 19 5 - 25 mg/dL LAB CHEMISTRY METHOD 09/27/2024 10:15 AM [facility] Creatinine 0.57 0.50 - 1.10 mg/dL LAB CHEMISTRY METHOD 09/27/2024 10:15 AM [facility] eGFR 106 >=60 mL/min/1. 73m2 LAB CHEMISTRY METHOD 09/27/2024 10:15 AM [facility] Comment:Calculation based on the Chronic Kidney Disease Epidemiology Collaboration (CKD-EPI) equation refit without adjustment for race. BUN/Creatinine Ratio 33.3 LAB CHEMISTRY METHOD 09/27/2024 10:15 AM [facility] Calcium 8.6 8.5 - 10.5 mg/dL LAB CHEMISTRY METHOD 09/27/2024 10:15 AM [facility] AST (SGOT) 35 10 - 42 unit/L LAB CHEMISTRY METHOD 09/27/2024 10:15 AM [facility] ALT (SGPT) 60 10 - 60 unit/L LAB CHEMISTRY METHOD 09/27/2024 10:15 AM [facility] Alkaline Phosphatase 100 42 - 121 unit/L LAB CHEMISTRY METHOD 09/27/2024 10:15 AM [facility] Total Protein 5.8(L) 6.0 - 8.0 g/dL LAB CHEMISTRY METHOD 09/27/2024 10:15 AM [facility] Albumin 2.3(L) 3.2 - 5.0 g/dL LAB CHEMISTRY METHOD 09/27/2024 10:15 AM [facility] Total Bilirubin 0.3 0.0 - 1.4 mg/dL LAB CHEMISTRY METHOD 09/27/2024 10:15 AM [facility] Blood Venous blood specimen / Unknown Venipuncture / Unknown 09/27/2024 4:53 AM EST 09/27/2024 8:45 AM EST us Mainor Crawford MD LAB BLOOD ORDERABLES Final Resul t [facility] [address] [place] [address], * (ABNORMAL) Complete blood count (09/27/2024 4:53 AM EST) WBC 8.7 4.8 - 10.8 K/mcL LAB HEMETOLOGY METHOD 09/27/2024 9:33 AM [facility] RBC 3.60(L) 3.80 - 4.80 M/mcL LAB HEMETOLOGY METHOD 09/27/2024 9:33 AM [facility] Hemoglobin 10.5(L) 11.5 - 16.0 g/dL LAB HEMETOLOGY METHOD 09/27/2024 9:33 AM [facility] Hematocrit 33.3(L) 35.0 - 47.0 % LAB HEMETOLOGY METHOD 09/27/2024 9:33 AM [facility] MCV 92.2 79.0 - 98.0 FL LAB HEMETOLOGY METHOD 09/27/2024 9:33 AM [facility] MCH 29.1 27.0 - 32.0 pcg LAB HEMETOLOGY METHOD 09/27/2024 9:33 AM [facility] MCHC 31.5(L) 32.0 - 37.0 g/dL LAB HEMETOLOGY METHOD 09/27/2024 9:33 AM [facility] RDW 17.8(H) 11.0 - [...] 9:33 AM EST [facility] Blood Venous blood specimen / Unknown Venipuncture / Unknown 09/27/2024 4:53 AM EST 09/27/2024 8:45 AM EST us Mainor Crawford MD LAB BLOOD ORDERABLES Final Resul t [facility] [address] [place] [address], documented in this encounter Visit Diagnoses Diagnosis Polymyalgia rheumatica (CMS/HCC V24) Polymyalgia rheumatica documented in this encounter Care Teams Shank Boner Relationship Specialty Start Date End Date Lex Rich MD [address] [place] [phone] PCP - General Internal Medicine 05/24/24 documented as of this encounter
--- OUTSIDE RECORDS SUMMARY | 2025-05-31 10:26 | XMS_ITS | Clinical Summary ---
Author Organization [employer] Address [address] [facility] [address] [place] [address] Care Team Providers Care Clinical Rehab Specialist Name Role Phone Unavailable Primary Care Provider [...] patient's age to complete this topic Insurance [facility] [employer] [place] [phone]
--- OUTSIDE RECORDS SUMMARY | 2025-05-31 10:26 | XMS_ITS | Encounter Summary ---
Author Organization [facility] Address [address] [place] [address] Care Team Providers Care Golf Range Attendant Name Role Phone Lex Rich MD Primary Care Pr ovider Reason for Referral * Consultation (Routine) - Authorized Specialty Diagnoses / Procedures Referred By Contac t Referred To Contact Endocrinology Diagnoses Localized osteoporosis without current pathological fracture Lex Rich MD [address] [place] [address] Phone: tel: fax: [address] Phone: tel: fax: Referral ID Status Reason Start Date Expiration Date Visits Requested Visits Authorized [id number] Authorized Specialty Services Required 05/17/2026 1 1 Encounter Details Date Type Department Care Team (Late st Contact Info) Description 05/16/2025 Results Follow-Up Adult Medicine [address] [phone] Christianne Vidales PA [address] [place] [phone] Social History Tobacco Use Types Packs/Day Years [...] for your loved ones. For example, child nurse or elderly care for an older [...] 11:00 AM EST Office Visit Adult Medicine [facility] [address] [place], [place] [phone] Lex Rich MD 444 [place], [place] 07/15/2025 9:00 AM EST Office Visit Pulmonology [facility] 175 [facility] 200 [place] [phone] Aysha Hernandez MD 230 [place] [phone] 08/02/2025 1:00 PM EST Consult [facility] 175 [facility] 150 [place] [phone] Arpita Willis PA 230 [place] [address] 08/06/2025 10:15 AM EST Office Visit Orthopedic Surgery [facility] 250 [address] [facility] 250 [place] [phone] Diony Toledo DPM 175 [facility] 250 [place] [phone] Scheduled Referrals Name Type Priority Associated Diagnoses [...] documented as of this encounter Care Teams Golf Range Attendant Relationship Specialty Start Date End Date Lex Rich MD [address] [place] [phone] PCP - General Internal Medicine 05/24/24 documented as of this encounter
--- OUTSIDE RECORDS SUMMARY | 2025-05-31 10:26 | XMS_ITS | Data Portability ---
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 7273188073269 03 Active 2024 Not Available [facility] 13:30:08 Fall Active 2024 Not Available [facility] 13:31:11 Anxiety disorder 407148551 Active 2024 Not Available [facility] 16:50:45 Depressive disorder 07161288 Active 2024 Not Available [facility] 5 11:58:52 Abnormal Active 2024 Not Available [facility] 5 12:00:40 Muscle weakness 12888727 Active 2024 Not Available [facility] 5 11:10:39 Incoordina tion 960397067 Active 2024 Not Available [facility] 5 11:10:40 Difficulty walking 572516161 Active 2024 Not Available [facility] 5 11:11:53 Polymyalgi a rheumatica 41619557 Active 2024 Not Available [facility] 5 13:29:03 History of fall 150916876 Active 2024 DANIELLE QUEZADA CNP [address], [place], [address] , [facility] 5 13:02:11 Coronary arterioscl erosis 08352956 Active 2024 DANIELLE QUEZADA CNP [address], [address], [place], [address] , [facility] 5 13:02:14 Idiopathic pulmonary fibrosis 336870808 Active 2024 DANIELLE QUEZADA CNP [address], [address], [place], [address] , [facility] 5 13:02:17 Insomnia 302709694 Active 2024 DANIELLE QUEZADA CNP [address], [address], [place], [address] , [facility] 5 13:02:19 Mixed anxiety and depressive disorder 081903993 Active 2024 DANIELLE QUEZADA CNP [address], [address], [place], [address] , [facility] 5 13:02:20 Hyperglyce deven 99405075 Active 2024 DANIELLE QUEZADA CNP [address], [place], [address] , [place] - [facility] 5 13:02:24 Hyperlipid emia 45296809 Active 2024 DANIELLE QUEZADA, INTERNET SALESPERSON [address] [facility], [address], [place], [address] , [place] - [facility] 13:02:26 Problem Notes None recorded. Medical [...] Address Organization Details Last Updated DateTime 5 44043.6 3 g 96 /min 18 /min 98.2 [degF] 96 % 96 % 122/79 mm[Hg] DANIELLE QUEZADA, REINA [address] [facility], [address], [place], [address], [place] - [facility] 5 12:08:32 Date Recorded Body weight Body mass index (BMI) Body height Heart rate Respiratory rate Body temperature Oxygen saturation Oxygen saturation in Arterial blood by Pulse oximetry Systolic And Diastolic Provider Name and Address Organization Details Last Updated DateTime 5 65541 g 26.6 kg/m2 152.4 cm 104 /min 16 /min 97.7 [degF] 97 % 97 % 118/72 mm[Hg] Harper Rosales MD [address] [facility], [facility] [address], [place], [address], [facility] 5 15:05:33 Date Recorded Body height Heart rate Respiratory rate Body temperature Oxygen saturation Oxygen saturation in Arterial blood by Pulse oximetry Systolic And Diastolic Provider Name and Address Organization Details Last Updated DateTime 5 152.4 cm 96 /min 18 /min 98 [degF] 98 % 98 % 118/72 mm[Hg] YARA CABALLERO [address] [facility], [address], [place], [address], [facility] 5 19:41:13 Date Recorded Body height Body mass index (BMI) Body weight Heart rate Respiratory rate Body temperature Oxygen saturation Oxygen saturation in Arterial blood by Pulse oximetry Systolic And Diastolic Provider Name and Address Organization Details Last Updated DateTime 5 152.4 cm 26.5 kg/m2 87880.4 8 g 83 /min 18 /min 97.6 [degF] 95 % 95 % 126/69 mm[Hg] YARA CABALLERO [address] [facility], [facility] [address], [place], [address], [facility] 5 11:10:53 Social History Question Answer Notes LastModified by Organizat ion Details LastModified Time Tobacco Smoking Status Never Smoker DANIELLE QUEZADA CNP [address] [facility], [facility] [address], [place], [address], [facility] 09/27/2024 11:20:38 Do You Have An Advance Directive? Yes Information not available 10/02/2024 What Is Your Code Status? DNI No G-tube Information not available 09/27/2024 Where Do You Live? Apartment Lives Alone, 3rd Floor, No Elevator. Information not available 10/02/2024 Legal Guardian? No Informati on not available 10/02/2024 Do You Have A Medical Power Of Wildlife Officer? Yes Information not available 10/02/2024 What Was [...] Recorded Time Tdap 04/19/2023 completed Tarsha Segovia [facility] 09/27/2024 13:01:36 influenza, unspecified formulation 04/19/2023 completed Tarshalaure Segovia [facility] 09/27/2024 13:01:50 Past Encounters Encounter ID Performer Location Encounter Start Date Encounter Closed Date Diagnosis/Indication Diagnosis SNOMED-CT Code Diagnosis ICD10 Code Diagnosis IMO Codes Diagnosis Note [id number] DANIELLE QUEZADA CNP [facility] [address] [place] [address] 09/27/2024 10:45:11 10/02/2024 13:55:38 Polymyalgia rheumatica 21790892 M35.3 Flare up with bilateral lower extremity [...] s/s of flare up. History of fall 61579547 9 Z91.81 S/t PMR flare up and weakness.P T and OT for strength, gait training and safety.Mor se screen on 09/27/24, scored high risk. Idiopathic pulmonary fibrosis 304457480 J84.112 OFev 150 mg BID.Contin ue monitor. Insomnia 974265945 G47.0 0 Prazosin 1 mg qHS.Trazod one 100 mg qHS.Stable , continue monitor. Coronary arteriosclerosis 96966287 I25.10 Isosorbide mononitrat e 30 mg ER daily.Resu me aspirin 81 mg daily.VSS, continue to monitor. Mixed anxi ety and depressive disorder 289271377 F41.8 Buspirone 7.5 BID.Mood is stable, continue monitor.Ps y therapy PRN Hyperglycemia 70941427 R 73.9 Likely due to steroid.Gl ucose stable, will continue monitor. Hyperlipidemia 26487410 E78.5 Continue atorvastat in 40 mg daily. [id number] Harper Rosales MD [facility] [address] [place] [address] 10/02/2024 13:38:53 10/04/2024 11:04:53 Polymyalgia rheumatica 80628771 M35.3 Per inpt notes, not completely c/w [...] with rheum as planned. History of fall 27272083 9 Z91.81 PT/OT as above.Hali tor for safety. Coronary arteriosclerosis 51784689 I25.10 No recent sxs.Contin ue isosorbide mononitrat e 30 mg ER qd, ASA 81 mg qd and atorvastat in 40 mg qd.Monitor for cardio sxs.F/U with cardio as planned. Idiopathic pulmonary fibrosis 670756404 J84.112 Continue Ofev 150 mg BID.Monito r resp status.F/U with pulmonary as planned. Insomnia 693681540 G47.0 0 Meds as above,Hali tor sleep patterns. Mixed anxi ety and depressive disorder 646442912 F41.8 F32.89 Mood good today.Cont inue buspirone 7.5 BID, prazosin 1 mg qhs and trazadone 100 mg qhs.Mood is stable, continue monitor.Ps y therapy PRN Hyperglycemia 63995071 R 73.09 Glucose only mildly elevated here.With HgA1C of 6.4 inpt.Likel y due to steroids.C ontinue to encourage healthy eating.Mon itor as outpt. Hyperlipidemia 23261217 E78.49 Continue atorvastat in 40 mg qdMonitor labs as outpt. [id number] [place] [address] 10/05/2024 18:12:50 10/11/2024 15:02:23 Polymyalgia rheumatica 76500615 M35.3 continues with burning pain in finger joint and legswill increase gabapentin to 300 mg TIDCurrent ly is on prednisone taper.15 mg daily for 2 weeks, then wean 2.5 mg q 2 weekly.Praveen lofen 10 mg TID for pain.Yary nue monitor the pain and effectiven ess, [id number] YARA CABALLERO [address] [place] [address] 10/12/2024 10:28:50 10/16/2024 10:09:49 Polymyalgia rheumatica 55805258 M35.3 polymyalgi a rheumatica -Per inpt notes, [...] with PCP as planned History of fall 97860213 9 Z91.81 Monitor for safety. Coronary arteriosclerosis 31773441 I25.10 Continue isosorbide mononitrat e 30 mg ER qd, ASA 81 mg qd and atorvastat in 40 mg qd.Monitor for cardio sxs.F/U with cardio as planned. Idiopathic pulmonary fibrosis 927840217 J84.112 Continue Ofev 150 mg BID.Monito r resp status.F/U with pulmonary as planned. Mixed anxi ety and depressive disorder 966903898 F41.8 F32.89 Continue buspirone 7.5 BID, prazosin 1 mg qhs and trazadone 100 mg qhs. Insomnia 474377266 G47.0 0 Meds as above, Hyperglycemia 58269605 R 73.09 Glucose only mildly elevatedWi th HgA1C of 6.4 inpt.Likel y due to steroids.C ontinue to encourage healthy eating.Mon itor as outpt. Hyperlipidemia 69996623 E78.49 Continue atorvastat in 40 mg qdMonitor labs as outpt. Health Concerns Section Related Observation LastModified by Organization Detai ls LastModified Time None Recorded Concern Status LastModified by Organization Details LastModified Time None Recorded Advance Directives Directive Y: Payers Insurance Date Sequence Insurance Name Policy Number Policy Haywood Covered Member ID Haywood Member ID Guarantor Name 10/12/2024 1 [facility] - DOS ON OR AFTER 2022 - MEDICARE ADVANTAGE [place] (MEDICARE REPLACEMENT/ADV ANTAGE - PPO) Patricia Alexandre [id number] Patricia Alexandre Notes Date Note Type Note Provider Name and Address Organization Details Recorded Time 09/27/2024 text/html Patricia is 58 y/o a Belizean-speaking female admitted to [facility] on 09/26/[facility] from [facility]. PMH significant for Polymyalgia rheumatica, positive MADY, and RF, idiopathic pulmonary fibrosis, CAD, HLD and depression. Pt presented to [facility] ER on 09/23/24 due to increase increased [...] on 09/27/24, scored high risk. DANIELLE QUEZADA, INTERNET SALESPERSON [address] [facility], [address], [place], [address], [facility] 09/27/2024 15:11:28 10/02/2024 text/html This is a 58 yo woman who is here for rehab after an acute hospitalization for a severe PMR flare causing inability to walk.She also has mod/severe ILD at baseline causing chronic SOB and asthenia. She presented to the [facility] ED on 09/23 due to increasing leg pain and weakness.She had been inpt at [facility] 07/31-08/07 for similar sxs and was txed with solumedrol and then put on prednisone taper. 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 Her PMH includes PMR with + MADY and RF, idiopathic pulmonary fibrosis, CAD, elevated blood sugars when on prednisone (HgA1C 6.4), HLD and insomnia, anxiety/depression. Harper Rosales MD [address] [facility], [address], [place], [address], [facility] 10/02/2024 22:44:50 10/05/2024 text/html ROS as noted [...] continues to be bothersome. YARA CABALLERO [address] [facility], [address], [place], [address], [place] - [facility] 10/10/2024 19:41:49 10/12/2024 text/html Discharge Summary Summarized from MD Tao This is a 58 yo woman with a PMH includes PMR with + MADY and RF, idiopathic pulmonary fibrosis, CAD, elevated blood sugars when on prednisone (HgA1C 6.4), HLD and insomnia, anxiety/depression. Admitted to [facility] for rehab after an acute hospitalization for a severe PMR flare causing inability to walk.She also has mod/severe ILD at baseline causing chronic SOB and asthenia. She presented to the [facility] on 09/23 due to increasing leg pain and weakness.She was admitted due to being unable to bear wt on legs due to pain.She was txed with solumedrol and then transitioned to po prednisone to do a prolonged taper. She had been inpt at [facility] 07/31-08/07 for similar sxs and was txed [...] and VNA with services. YARA CABALLERO [address] [facility], [address], [place], [address], [facility] 10/12/2024 11:43:33 OBGyn Episode No OBEpisode recorded.
--- OUTSIDE RECORDS SUMMARY | 2025-05-31 10:26 | XMS_ITS | Encounter Summary ---
Author Organization [facility] Address [address] [place] [address] Care Team Providers Care Tube Turner Name Role Phone Lex Rich MD Primary Care Pr ovider Encounter Details Date Type Department Care Team (Late Contact Info) Description 09/19/2024 Billing Patient Not Present Adult Medicine [address] [phone] Shannon Wymanbel MS Social History Tobacco Use [...] 11:00 AM EST Office Visit Adult Medicine [address] [phone] Lex Rich MD [address] [place] [address] 07/15/2025 9:00 AM EST Office Visit Pulmonology - [address] [place] [phone] Aysha Hernandez MD 230 [place] [phone] 08/02/2025 1:00 PM EST Consult [facility] [place] 175 [facility] [address] [place] [phone] Arpita Willis PA 230 [place] [phone] 08/06/2025 10:15 AM EST Office Visit Orthopedic Surgery - [place] 250 175 [facility] [address] [place] [phone] Diony Toledo DPM 175 [facility] [address] 250 [place] [phone] documented as of this encounter Visit Diagnoses Not on filedocumented in this encounter Care Teams Tube Turner Relationship Specialty Start Date End Date Lex Rich MD [address] [place] [phone] PCP - General Internal Medicine 05/24/24 documented as of this encounter
--- OUTSIDE RECORDS SUMMARY | 2025-05-31 10:26 | XMS_ITS | Encounter Summary ---
Author Organization [facility] Address [address] [place] [address] Care Team Providers Care Top Lift Nailer Name Role Phone Lex Rich MD Primary Care Pr ovider Encounter Details Date Type Department Care Team (Late st Contact Info) Description 02/26/2025 Lab Requisition [facility] - Main Lab [address] [facility] [place] [address] Susanne Cohen MD [address] [place] [phone] Pulmonary fibrosis, unspecified (CMS/HCC V24, CMS/HCC V28) [...] your loved ones. For example, early childhood aide classroom or elderly care for an older adult? [...] 11:00 AM EST Office Visit Adult Medicine [address] [phone] Lex Rich MD [address] [place] [address] 07/15/2025 9:00 AM EST Office Visit Pulmonology - [place] [address] [facility] [address] [place] [address] Aysha Hernandez MD [address] [place] [phone] 08/02/2025 1:00 PM EST Consult [facility] for [place] - [place] [address] [facility] [address] [place] [phone] Arpita Willis PA [address] [place] [phone] 08/06/2025 10:15 AM EST Office Visit Orthopedic Surgery - [place] 250 175 [facility] 250 [place] [phone] Diony Toledo DPM 175 [facility] 250 [place] [address] documented as of this encounter Procedures Procedure Name Priority Date/Time Associated Diagnosis Comments HISTORICAL SURGICAL PATHOLOGY CASE Routine 02/26/2025 1:00 PM EDT Pulmonary fibrosis, unspecified (CMS/HCC V24, CMS/HCC V28) documented in this encounter Results * Historical Pathology Case (02/26/2025 1:00 PM EDT) Final Diagnosis This case was created to document slides being sent to [facility] from a historical case accessioned in our prior laboratory information system. The report is available upon request. No additional diagnosis is rendered by this institution at this time. 05/08/2025 11:19 AM EDT EXTERNAL LAB (NON-INTERFAC ED) at 1119 EDT Clinical Information Historical case created for requests for materials from outside institutions. 05/08/2025 11:[address] [facility] Gross Description A. Lung, Right Upper Lobe, : [id number] Whole case (5) sent JS/KK 05/08/2025 11:[address] [facility] Disclaimer Unless otherwise specified, all tissue is 10% NB formalin fixed and paraffin embedded. 05/08/2025 11:[address] [facility] Tissue Structure of upper lobe of right lung / Unknown 02/26/2025 1:00 PM EDT 02/26/2025 1:00 PM EDT us Susanne Cohen MD LAB PATHOLOGY ORDERABLES Final R esult EXTERNAL LAB (NON-INTERFACED) [facility] [address] [place] [address], documented in this encounter Visit Diagnoses Diagnosis Pulmonary fibrosis, unspecified (CMS/HCC V24, CMS/HCC V28) documented in this encounter Additional Health Concerns Assessment Noted Time PHQ-9 Depression Total Score: 0 10/19/19 25 8:17 AM EDT documented as of this encounter Care Teams Top Lift Nailer Relationship Specialty Start Date End Date Lex Rich MD [address] [place] [address] PCP - General Internal Medicine 05/24/24 documented as of this encounter
--- OUTSIDE RECORDS SUMMARY | 2025-05-31 10:26 | XMS_ITS | Encounter Summary ---
Author Organization [facility] Address [address] [place] [address] Care Team Providers Care Door Serviceman Name Role Phone Lex Rich MD Primary Care Pr ovider Encounter Details Date Type Department Care Team (Late Contact Info) Description 10/07/2024 Lab Requisition [facility] - Main Lab 299 [facility] [place] [address] Mainor Crawford MD [address] [place] [address], [phone] Polymyalgia rheumatica (CMS/HCC V24) Social History [...] Upcoming Encounters Date Type Department Care Team ([facility] Contact Info) Description 05/31/2025 11:00 AM EST Office Visit Adult Medicine [address] [phone] Lex Rich MD [address] [place] [phone] 07/15/2025 9:00 AM EST Office Visit Pulmonology - [place] 175 [facility] 200 [place] [phone] Aysha Hernandez MD 230 [place] [phone] 08/02/2025 1:00 PM EST Consult [facility] [place] - [place] [address] [facility] 150 [place] [phone] Arpita Willis PA 230 [place] [phone] 08/06/2025 10:15 AM EST Office Visit Orthopedic Surgery - [place] 250 [address] [facility] 250 [place] [phone] Diony Toledo DPM 175 [facility] 250 [place] [phone] documented as of this encounter Procedures Procedure Name Priority Date/Time Associated Diagnosis Comments PREALBUMIN Routine 10/08/2024 5:24 AM EDT Polymyalgia rheumatica ([facility]) documented in this encounter Results * Prealbumin (10/08/2024 5:24 AM EDT) Prealbumin 27 18 - 45 mg/dL LAB CHEMISTRY METHOD 10/08/2024 11:51 AM EDT [facility] Blood Venous blood specimen / Unknown Venipuncture / Unknown 10/08/2024 5:24 AM EDT 10/08/2024 10:33 AM EDT us Mainor Crawford MD LAB BLOOD ORDERABLES Final Resul t [facility] ([facility]) [facility] [address] [place] [address], [place] [phone] documented in this encounter Visit Diagnoses Diagnosis Polymyalgia rheumatica (CMS/[facility] V24) Polymyalgia rheumatica documented in this encounter Care Teams Door Serviceman Relationship Specialty Start Date End Date Lex Rich MD [address] [place] [phone] PCP - General Internal Medicine 05/24/24 documented as of this encounter
== END 2025-05-31 09:47 | disposition home or self-care (01) ==
LOC: HO.PMC 09:17
PROVIDERS: PCP Family Medicine; Visit Provider Registered Nurse Emergency
DX: R29.898 Other symptoms and signs involving the musculoskeletal system (principal); M47.816 Spondylosis without myelopathy or radiculopathy, lumbar region; G89.4 Chronic pain syndrome; M53.3 Sacrococcygeal disorders, not elsewhere classified; M79.10 Myalgia, unspecified site; M35.3 Polymyalgia rheumatica
CPT/HCPCS: 99213; G2211

== ENCOUNTER → 2025-05-31 09:16 | Outpatient (BNVA) | payer OTHER, SELFPAY | PROVIDERS: PCP Family Medicine; Visit Provider Registered Nurse Emergency | DX: R29.898 Other symptoms and signs involving the musculoskeletal system (principal); M47.816 Spondylosis without myelopathy or radiculopathy, lumbar region; G89.4 Chronic pain syndrome; M53.3 Sacrococcygeal disorders, not elsewhere classified; M79.10 Myalgia, unspecified site; M35.3 Polymyalgia rheumatica | CPT/HCPCS: 99212 ==

== ENCOUNTER 2025-06-09 14:18 | Emergency (ER) | payer OTHER, SELFPAY ==
[2025-06-09 14:27] VITALS: BP 112/66; PULSE 96; RESP 18; TEMP 36.6; O2SAT 96; BMI 23.5
--- NOTE | 2025-06-09 14:27 | ED.GENADULT ---
HPI - General Adult General Chief complaint: General Medical Stated complaint: General Medical Time Seen by Provider: 06/09/25 17:19 Source: patient Mode of arrival: ambulatory Limitations: language barrier History of Present Illness ED Provider: Dr. Soriano HPI narrative: 59-year-old female presented hospital today for evaluation of right-sided neck pain. This has been going on for a month now. Patient has seen her primary care doctor without any alleviation of this neck pain. Patient is complaining of headache associated with this neck as well. And pain in her ear. Patient is a presented to ER for re-evaluation. This pain is worsened when she rotates her head to the left. Related Data Home Medications ?Medication ?Instructions ?Recorded ?Confirmed atorvastatin 40 mg tablet 40 mg PO DAILY 07/31/24 05/23/25 baclofen 10 mg tablet 10 mg PO TID 07/31/24 05/23/25 buspirone 7.5 mg tablet 7.5 mg PO BID 07/31/24 05/23/25 isosorbide mononitrate 30 mg 30 mg PO DAILY 07/31/24 05/23/25 tablet,extended release 24 hr prazosin 1 mg capsule 1 mg PO BEDTIME 07/31/24 05/23/25 trazodone 100 mg tablet 100 mg PO BEDTIME 07/31/24 05/23/25 nintedanib 150 mg capsule (Ofev) 150 mg PO BID 08/01/24 05/23/25 cholecalciferol (vitamin D3) 25 25 mcg PO DAILY 09/24/24 05/23/25 mcg (1,000 unit) tablet cyanocobalamin (vitamin B-12) 1,000 mcg PO DAILY 09/24/24 11/28/24 1,000 mcg tablet Previous Rx's ?Medication ?Instructions ?Recorded prednisone 10 mg tablet 10 mg PO DAILY #60 tabs 09/26/24 pregabalin 100 mg capsule 100 mg PO BID #60 caps 05/23/25 cyclobenzaprine 5 mg tablet 5 mg PO TID PRN muscle spasm #14 06/09/25 tabs lidocaine 4 % topical patch 1 patch topical DAILY PRN pain #15 06/09/25 (AsperFlex (lidocaine)) ea Allergies Allergy/AdvReac Type Severity Reaction Status Date / Time No Known Allergies Allergy Verified 06/09/25 14:30 Review of Systems Review of Systems: Pertinent review of systems as mentioned in HPI. All other system otherwise negative. [facility] Past Medical History [facility] Narrative: Medical history as mentioned in HPI Medical History (Updated 06/10/25 @ 00:01 by Regan Mcnulty) CAD (coronary artery disease) Idiopathic pulmonary fibrosis Polymyalgia rheumatica Social History Social History Household Members: None Housing: Apartment Do you presently have visiting nurse or other home services: No (AWAITING proposal analyst) Patient Tobacco Use Status: Never used Tobacco e-Cigarette/Vaping Use: Never Used Advance Directives: Yes Advance Directives on File: Yes Advance Directives Date on File: 09/27/24 Do you have a plan to hurt others: No Plan service: No Physical Exam ED Exam Exam: General: Pleasant, no distress, interacting appropriately Head: Normacephalic, atraumatic ENT: oral mucosa moist, neck supple, no tracheal deviation, TM membrane did not show any signs of erythema on exam. , right-sided trapezius tenderness on palpation tightness appreciated on exam Cardiovascular: regular rate, regular rhythm, no murmurs, rubbing, gallops Respiratory: CTAB, no wheeze, rales, rhonchi Neurological: Awake and alert, no facial droop noted Skin: Warm and dry Psychiatric: Appropriate mood and thoughts Vital Signs: Vital Signs - 24 hr 06/09/25 14:27 06/09/25 19:02 06/09/25 20:14 Temperature 97.9 F 98.5 F 98.4 F Pulse Rate 96 84 93 Respiratory Rate 18 18 Blood Pressure 112/66 104/60 99/60 Pulse Oximetry 96 97 95 Oxygen Delivery Method Room Air Room Air Room Air 06/09/25 20:16 Temperature 98.4 F Pulse Rate 93 Respiratory Rate 18 Blood Pressure 99/60 Pulse Oximetry 95 Oxygen Delivery Method Room Air BMI result Body Mass Index 23.5 Course Course Course Narrative: This is a Rapid Medical Examination (RME) performed by Anita Manley PA-C in triage. Full HPI, ROS, assessment and treatment plan per primary provider in the Main ED. Hx: 59 yo F here for eval of posterior neck pain radiating to her head x1 month. saw PCP for this 1 week ago, no improvement. reports sharp stabbing pain w/ buzzing sound to L ear - prescribed ear drops without improvement. Plan: labs - will defer imaging to primary provider Medications Administered Discontinued Medications Generic Name Dose Route Start Last Admin Trade Name Larry PRN Reason Stop Dose Admin Acetaminophen 975 mg 06/09/25 18:15 06/09/25 18:35 Acetaminophen 325 Mg Tablet PO 06/09/25 18:16 975 mg ONCE ONE Administration Diazepam 5 mg 06/09/25 18:15 06/09/25 18:35 Diazepam 5 Mg Tablet PO 06/09/25 18:16 5 mg ONCE ONE Administration Fluticasone Propionate 1 spray 06/09/25 18:15 06/09/25 20:18 Fluticasone Propionate Nasal 16 Gm [place] NOSTRIL-B 06/09/25 18:16 Not Given ONCE ONE Medical Decision Making Medical Decision Making [facility] Narrative: 59-year-old female presented hospital today for right-sided neck pain that has been going on for a month now. She is also sitting this with a headache. I have high suspicion for tension headache at this time. Patient is likely has right-sided headache. I suspect she likely has torticollis due to trapezius spasm. We will plan to give patient has some fluticasone spray, Tylenol and a dose of diazepam here for muscle relaxant. Lab work were obtained by previous provider. Chemistries unremarkable, CBC is unremarkable. The patient has no neurological deficit. I suspect this is muscular in nature. We will plan to send the patient home with some muscle relaxant and encouraged to follow up with her primary care doctor. In-person per diem interpreter was used for this encounter. Patient agrees and understands this plan. Differential Diagnosis Differential Diagnoses: The differential diagnosis associated with the presentation includes Torticollis, trapezius spasm, tension headache Lab Data [facility] Lab Attestation statement: I reviewed the patient's lab results. 06/09/25 14:53 06/09/25 14:53 Labs: Lab Results 06/09/25 Range/Units 14:53 WBC 6.9 (4.8-10.8) X10*3/uL RBC 4.13 L (4.20-5.50) X10*6/uL Hgb 12.9 (12.0-16.0) g/dl Hct 39.8 (37.0-47.0) % MCV 96.4 (80.0-98.0) fL MCH 31.2 (27.0-33.0) pg MCHC 32.4 (31.0-35.0) g/dl RDW 15.4 (11.0-16.0) % Plt Count 360 (160-400) X10*3/uL MPV 9.4 (9.4-12.3) fL Immature Gran % (Auto) 0.3 (0.0-0.4) % Neut % (Auto) 48.4 (45-73) % Lymph % (Auto) 37.2 (20-40) % [place] % (Auto) 11.1 H (2-11) % Eos % (Auto) 2.0 (0-4) % Baso % (Auto) 1.0 (0-2) % Lymph # (Auto) 2.6 (1.2-4.9) X10*3/uL [place] # (Auto) 0.8 (0.1-1.2) X10*3/uL Eos # (Auto) 0.1 (0.0-0.4) X10*3/uL Baso # (Auto) 0.1 (0.0-0.2) X10*3/uL Abs Immat Gran (auto) 0.02 (0.00-0.03) X10*3/uL Absolute Neuts (auto) 3.3 (2.0-8.3) x10*3/uL Absolute Nucleated RBC 0.000 (0.0-0.012) X10*3/uL Nucleated RBC % (auto) 0.0 (0.0-0.2) /100WBC Sodium 139 (135-145) mmol/L Potassium 5.1 (3.3-5.1) mmol/L Chloride 105 (96-108) mmol/L Carbon Dioxide 26 (22-29) mmol/L Anion Gap 13 (12-20) BUN 8 L (9-16) mg/dL Creatinine 0.63 (0.5-1.4) mg/dL Estim Creat Clear Calc 75.6 Estimated GFR > 60 Random Glucose 130 H (60-115) mg/dL Calcium 9.8 (8.4-10.2) mg/dL Magnesium 2.1 (1.6-2.6) mg/dL Total Bilirubin 0.2 (0.0-1.0) mg/dL AST 24 (5-31) U/L ALT 15 (0-31) U/L Alkaline Phosphatase 110 (39-117) U/L Total Protein 7.7 (6.5-8.0) g/dL Albumin 3.9 (3.5-5.0) g/dL Discharge Plan Discharge Clinical Impression: Tension headache, Muscular torticollis Patient Disposition: Home, Self-Care Instructions: Tension Headache (ED) Additional Instructions: You have signs of right sided neck spasm. Take the cyclobenzaprine which is a muscle relaxer to see if this will help. If you are taking Baclofen. DO NOT take Baclofen and Cyclobenzaprine together. Stretch when possible. Make sure to follow up with your primary care doctor. Prescriptions: New cyclobenzaprine 5 mg tablet 5 mg PO TID PRN (Reason: muscle spasm) Qty: 14 0RF lidocaine [AsperFlex (lidocaine)] 4 % adhesive patch,medicated 1 patch topical DAILY PRN (Reason: pain) Qty: 15 0RF No Action atorvastatin 40 mg tablet 40 mg PO DAILY prazosin 1 mg capsule 1 mg PO BEDTIME isosorbide mononitrate 30 mg tablet extended release 24 hr 30 mg PO DAILY trazodone 100 mg tablet 100 mg PO BEDTIME baclofen 10 mg tablet 10 mg PO TID buspirone 7.5 mg tablet 7.5 mg PO BID Ofev 150 mg capsule 150 mg PO BID cyanocobalamin (vitamin B-12) 1,000 mcg Tablet 1,000 mcg PO DAILY cholecalciferol (vitamin D3) 25 mcg (1,000 unit) Tablet 25 mcg PO DAILY prednisone 10 mg tablet 10 mg PO DAILY Qty: 60 0RF Rx Instructions: take 15 mg po daily x 2 weeks than wean 2.5 q2 weekly pregabalin 100 mg capsule 100 mg PO BID Qty: 60 0RF Interventions: ED Discharge Assessment Last Done: 06/09/25 20:16 Discharge Date/Time: 06/09/25 20:17 Print Language: Libyan
[2025-06-09 14:58] LABS: MANUAL DIFF FLAG NO
[2025-06-09 15:00] LABS: Hematocrit 39.8 % (37.0-47.0); Hemoglobin 12.9 g/dl (12.0-16.0); Imm Gran Abs Auto 0.02 X10*3/uL (0.00-0.03); Imm Gran Pct Auto 0.3 % (0.0-0.4); Lymphocytes Absolute Auto 2.6 X10*3/uL (1.2-4.9); Mean Corpuscular HGB Conc 32.4 g/dl (31.0-35.0); Mean Corpuscular Hemoglobin 31.2 pg (27.0-33.0); Mean Corpuscular Volume 96.4 fL (80.0-98.0); NRBC Abs Auto 0.000 X10*3/uL (0.0-0.012); NRBC Pct Auto 0.0 /100WBC (0.0-0.2); Platelet Count 360 X10*3/uL (160-400); Red Blood Count 4.13 X10*6/uL (4.20-5.50); White Blood Count 6.9 X10*3/uL (4.8-10.8)
[2025-06-09 15:15] LABS: Alanine Aminotransferase 15 U/L (0-31); Albumin Level 3.9 g/dL (3.5-5.0); Alkaline Phosphatase 110 U/L (39-117); Anion Gap 13 (12-20); Aspartate Amino Transferase 24 U/L (5-31); Blood Urea Nitrogen 8 mg/dL (9-16); Calcium 9.8 mg/dL (8.4-10.2); Carbon Dioxide 26 mmol/L (22-29); Chloride 105 mmol/L (96-108); Creatinine Clr Calc Pharmacy 75.6; Estimated Glomerular Filt Rate > 60; Magnesium 2.1 mg/dL (1.6-2.6); Potassium 5.1 mmol/L (3.3-5.1); Sodium 139 mmol/L (135-145); Total Protein 7.7 g/dL (6.5-8.0)
--- OUTSIDE RECORDS SUMMARY | 2025-06-09 15:49 | XMS_ITS | Data Portability ---
Author Organization [employer] Address [address] [place] [address] Care Team Providers Care Addiction Counselor Name Role Phone HIM CCA OTHER Assessment Encounter Date Assessment Date Assessment LastModified by Organization Details LastModified Time 12/13/2023 12/13/2023 I provided real -time medical direction via phone for this encounter and was available for additional phone-based assistance as needed. I have reviewed and agree with the Assessment and Plan as documented by the Flue Cleaner. Patient given the opportunity to ask questions. Our service contacted for an assessment of: Chronic pain As per above, patient with hx of chronic pain. No new or worsening red S&S. No new bowel/bladder symptoms. No new gait abnl. No new neurological signs, symptoms or deficits. Per garage door installer on the scene, VSS, non-toxic. Neuro grossly [...] in the field was performed by my garage door installer colleague, as noted above, I provided real-time [...] [degF] 17 /min 120/75 mm[Hg] Not Available Shortlist 4 13:40:20 Date Recorded Heart rate Body temperature Respiratory rate Oxygen saturation Oxygen saturation in Arterial blood by Pulse oximetry Systolic And Diastolic Provider Name and Address Organization Details Last Updated DateTime 4 82 /min 98.7 [degF] 16 /min 98 % 98 % 120/76 mm[Hg] Not Available [facility] 4 19:15:34 Social History None recorded. Functional Status None recorded. Mental Status None recorded. Family History Nothing Reported. Medical History No medical history recorded. Gynecological HistoryNo gynecological history recorded. Obstetrics History GPAL:G 0 P 0 0 0 0 Past Encounters Encounter ID Performer Location Encounter Start Date Encounter Closed Date Diagnosis/Indication Diagnosis SNOMED-CT Code Diagnosis ICD10 Code Diagnosis IMO Codes Diagnosis Note [id number] Mariella Castro MD Main - [address] [phone] 12/13/2023 13:40:10 12/13/2023 17:51:43 Chronic pain 44865567 G89.29 [id number] Hafsa Angel MD Main - [facility] [address] [place] [phone] 12/14/2023 19:15:30 12/15/2023 11:44:34 Erythematous rash [id number] R21 Health Concerns Section Related Observation LastModified by Organization Detai ls LastModified Time None Recorded Concern Status LastModified by Organization Details LastModified Time None Recorded Advance Directives Directive None Recorded Payers Insurance Date Sequence Insurance Name Policy Number Policy Haywood Covered Member ID Haywood Member ID Guarantor Name 12/12/2023 1 [facility] - DOS ON OR AFTER 2022 - DUAL ELIGIBLE - FDC OPTIONS AND ONE CARE (MEDICARE REPLACEMENT/ADV ANTAGE - HMO) Patricia Alexandre [id number] Patricia Alexandre Notes Date Note Type Note [...] ................. ................. ................. ................. ................. ................. ..... Flue Cleaner Note From Elena Chahal: 58y F [...] ................. ..... Disposition: Cole Castro MD [address] [facility],[address], [place], [address], JULIAN - CRIS CORTEZ 12/13/2023 13:48:03 12/14/2023 text/html CRC Nurse Triage Notes (Danelle Cotton): Reason For Request: Follow up from surgery /muscular spasms Chief Complaints: Pain PMH: Other Allergies: Unknown Comments: Lip Reading Teacher verified the member's name//address and phone number. Member is a 58 yr old female, latvian speaking PMH Son calling for member, had [...] reported s/s and [facility]: spasms of right arm are chronic. [...] ................. ................. ................. ................. ................. ................. ........ Flue Cleaner Note From Caden Bennett: Dispatched to [...] ..... Disposition: Fulfilled Hafsa Angel MD [address] [facility],[address], [place], [address], [employer] [facility] 12/14/2023 21:13:02 OBGyn Episode No OBEpisode recorded.
--- OUTSIDE RECORDS SUMMARY | 2025-06-09 15:49 | XMS_ITS | Clinical Summary ---
Author Organization [facility] Address [address] [address] Phone Care Team Providers Care Assistant Executive Housekeeper Name Role Phone Lex Rich MD Primary [...] incisional pain. Directed to follow-up with her instrument tester Dr. Hernandez in regards to her pulmonary fibrosis. Will follow-up with the thoracic surgical department moving forward on a as needed basis and to contact the thoracic surgery department should she have any further questions or concerns in the future. Hyperlipidemia 06/27/2023 Insomnia 06/24/2023 Anxiety and depression 02/17/2023 Osteopenia 02/17/2023 Social History Tobacco Use Types Packs/Day Years [...] this topic Medical Devices Not on file Insurance MEDICARE REPLACEMENT [place] [id number] , [address] [id number] [facility] MEDICARE REPLACEMENT MEDICARE REPLACEMENT MEDICARE REPLACEMENT MEDICARE REPLAC[place] [id number] ONE CARE MEDICARE REPLACEMENT CHANDNI SHERMAN [facility] Care Teams Assistant Executive Housekeeper Relationship Specialty Start Date End Date Lex Rich MD PCP - General Family Medicine 02/20/24 Additional Source Comments The information contained in this document represents components of the legal health record. It is not the complete legal health record.[facility]
--- OUTSIDE RECORDS SUMMARY | 2025-06-09 15:49 | XMS_ITS | Clinical Summary ---
Author Organization [employer] Address [address] [facility] 7[address] [place] [address] Care Team Providers Care Electric Range Assembler Name Role Phone Unavailable Primary Care Provider [...] of 2) 2016 COVID-19 Vaccine ( - 2024-2 6 season) 2025 Influenza Vaccine (#1) 2025 RSV [...] patient's age to complete this topic Insurance [facility] STANDARD [place] [phone]
--- OUTSIDE RECORDS SUMMARY | 2025-06-09 15:49 | XMS_ITS | Encounter Summary ---
Author Organization [facility] Address [address] [place] [address] Care Team Providers Care Scallop Shucker Name Role Phone Lex Rich MD Primary Care Pr ovider Reason for Referral * Consultation (Routine) - Authorized Specialty Diagnoses / Procedures Referred By Contac t Referred To Contact Endocrinology Diagnoses Localized osteoporosis without current pathological fracture Lex Rich MD [address] [place] [address] Phone: tel: fax: [address] Phone: tel: fax: Referral ID Status Reason Start Date Expiration Date Visits Requested Visits Authorized [id number] Authorized Specialty Services Required 05/17/2026 1 1 Encounter Details Date Type Department Care Team (Late st Contact Info) Description 05/16/2025 Results Follow-Up Adult Medicine [address] [phone] Christianne Vidales PA [address] [place] [phone] Social History Tobacco Use Types Packs/Day Years [...] for your loved ones. For example, children's institution attendant or elderly care for an older [...] Care Team (Late st Contact Info) Description 07/03/2025 1:00 PM EST Consult Endocrinology - [place] [address] [place] [address] Melinda Lyle MD [address] [place] [address] 07/15/2025 9:00 AM EST Office Visit Pulmonology [facility] [address] [facility] [address] [place] [phone] Aysha Hernandez MD [address] [place] [phone] 08/02/2025 1:00 PM EST Consult [facility] [address] [facility] [address] [place] [phone] Arpita Willis PA [address] [place] [phone] 08/06/2025 10:15 AM EST Office Visit Orthopedic Surgery [facility] [address] [facility] [address] [place] [phone] Diony Toledo DPM [address] [facility] 250 [place] [phone] 08/28/2025 1:00 PM EST Office Visit Gastroenterology - [address] [place] [address] [facility] [address] [place] [address] Godfrey Claros MD 299 [facility] [address] [place] [address] 09/12/2025 12:30 PM EST Office Visit Adult Medicine [facility] [address] [place] [address] Lex Rich MD [address] [place] [address] Scheduled Referrals Name Type Priority Associated Diagnoses [...] documented as of this encounter Care Teams Scallop Shucker Relationship Specialty Start Date End Date Lex Rich MD [address] [place] [address] PCP - General Internal Medicine 05/24/24 documented as of this encounter
--- OUTSIDE RECORDS SUMMARY | 2025-06-09 15:49 | XMS_ITS | Encounter Summary ---
Author Organization [employer] Address [address] [facility] 7[address] [place] [address] Care Team Providers Care Government Gauger Name Role Phone Unavailable Primary Care Provider Unavailabl e Reason for Visit * Reason Onset Date Comments New Patient 04/12/2023 Encounter Details Date Type Department Care Team (Late st Contact Info) Description 04/12/2023 Telephone [facility] [address] [place] [address] Oumar Chen MD [address] [place] [address] New Patient Social History Tobacco Use Types [...] PM EDT Tc to pt, to offer All Round Logger appt, No answer answer, could not leave voicemail due to not being set up . documented in this encounter Plan of Treatment Not on file documented as of this encounter Visit Diagnoses Not on filedocumented in this encounter
--- OUTSIDE RECORDS SUMMARY | 2025-06-09 15:49 | XMS_ITS | Encounter Summary ---
Author Organization [facility] [address] Address [address] [place] [address] Care Team Providers Care Processes Chemical Design Engineer Name Role Phone Lex Rich MD Primary Care Pr ovider Encounter Details Date Type Department Care Team (Late Contact Info) Description 10/07/2024 Lab Requisition [facility] - Main Lab 299 [facility] [place] [address] Mainor Crawford MD [address], [phone] Polymyalgia rheumatica (CMS/HCC V24) Social History [...] Department Care Team (Late Contact Info) Description 07/03/2025 1:00 PM EST Consult Endocrinology - [place] [address] [place] [address] Melinda Lyle MD [address] [place] [address] 07/15/2025 9:00 AM EST Office Visit Pulmonology [facility] 175 [facility] 200 [place] [address] Aysha Hernandez MD [address] [place] [address] 08/02/2025 1:00 PM EST Consult [facility] [place] 175 [facility] [address] [place] [phone] Arpita Willis PA [address] [place] [phone] 08/06/2025 10:15 AM EST Office Visit Orthopedic Surgery [facility] 250 175 [facility] [address] [place] [address] Diony Toledo DPM 175 [facility] [address] [place] [phone] 08/28/2025 1:00 PM EST Office Visit Gastroenterology - 299 [facility] 299 [facility] [address] [place] [address] Godfrey Claros MD 299 [facility] [address] [place] [address] 09/12/2025 12:30 PM EST Office Visit Adult Medicine [address] [phone] Lex Rich MD [address] [place] [address] documented as of this encounter Procedures Procedure Name Priority Date/Time Associated Diagnosis Comments PREALBUMIN Routine 10/08/2024 5:24 AM EDT Polymyalgia rheumatica (CMS/HCC) documented in this encounter Results * Prealbumin (10/08/2024 5:24 AM EDT) Prealbumin 27 18 - 45 mg/dL LAB CHEMISTRY METHOD 10/08/2024 11:51 AM EDT [facility] Blood Venous blood specimen / Unknown Venipuncture / Unknown 10/08/2024 5:24 AM EDT 10/08/2024 10:33 AM EDT us Mainor Crawford MD LAB BLOOD ORDERABLES Final Resul t [facility] [address] [place] [address], documented in this encounter Visit Diagnoses Diagnosis Polymyalgia rheumatica (CMS/HCC V24) Polymyalgia rheumatica documented in this encounter Care Teams Processes Chemical Design Engineer Relationship Specialty Start Date End Date Lex Rich MD [address] [place] [phone] PCP - General Internal Medicine 05/24/24 documented as of this encounter
--- OUTSIDE RECORDS SUMMARY | 2025-06-09 15:50 | XMS_ITS | Encounter Summary ---
Author Organization [facility] Address [address] [place] [address] Care Team Providers Care Smearer Name Role Phone Lex Rich MD Primary Care Pr ovider Encounter Details Date Type Department Care Team ([facility] Contact Info) Description 09/19/2024 Billing Patient Not Present Adult Medicine [address] [phone] Emilia Wyman [place] Social History Tobacco Use Types Packs/Day Years [...] Description 07/03/2025 1:00 PM EST Consult Endocrinology [address] [phone] Melinda Lyle MD [address] [place] [address] 07/15/2025 9:00 AM EST Office Visit Pulmonology - [address] [place] [address] Aysha Hernandez MD [address] [place] [phone] 08/02/2025 1:00 PM EST Consult [facility] 175 [facility] [address] [place] [address] Arpita Willis PA [address] [place] [address] 08/06/2025 10:15 AM EST Office Visit Orthopedic Surgery - [place] [address] [facility] 250 [place] [phone] Diony Toledo, DPM 175 [facility] [address] [place] [phone] 08/28/2025 1:00 PM EST Office Visit Gastroenterology - 299 [facility] 299 [facility] [address] [place] [address] Godfrey Claros MD 299 [facility] [address] [place] [address] 09/12/2025 12:30 PM EST Office Visit Adult Medicine [address] [phone] Lex Rich MD [address] [place] [address] documented as of this encounter Visit Diagnoses Not on filedocumented in this encounter Care Teams Smearer Relationship Specialty Start Date End Date Lex Rich MD [address] [place] [address] PCP - General Internal Medicine 05/24/24 documented as of this encounter
--- OUTSIDE RECORDS SUMMARY | 2025-06-09 15:50 | XMS_ITS | Data Portability ---
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 [id number] 03 Active 2024 Not Available [facility] 13:30:08 Fall Active 2024 Not Available [facility] 13:31:11 Anxiety disorder 138149133 Active 2024 Not Available [facility] 16:50:45 Depressive disorder 66885361 Active 2024 Not Available [facility] 5 11:58:52 Abnormal Active 2024 Not Available [facility] 5 12:00:40 Muscle weakness 28077573 Active 2024 Not Available [facility] 5 11:10:39 Incoordina tion 102510039 Active 2024 Not Available [facility] 5 11:10:40 Difficulty walking 432491802 Active 2024 Not Available [facility] 5 11:11:53 Polymyalgi a rheumatica 20560452 Active 2024 Not Available [facility] 5 13:29:03 History of fall 334750770 Active 2024 DANIELLE QUEZADA CNP [address], [place], [address] , [facility] 5 13:02:11 Coronary arterioscl erosis 27920059 Active 2024 DANIELLE QUEZADA CNP [address], [address], [place], [address] , [facility] 5 13:02:14 Idiopathic pulmonary fibrosis 851800292 Active 2024 DANIELLE QUEZADA CNP [address], [address], [place], [address] , [facility] 5 13:02:17 Insomnia 883834162 Active 2024 DANIELLE QUEZADA CNP [address], [address], [place], [address] , [facility] 5 13:02:19 Mixed anxiety and depressive disorder 315661152 Active 2024 DANIELLE QUEZADA CNP [address], [address], [place], [address] , [facility] 5 13:02:20 Hyperglyce deven 13986571 Active 2024 DANIELLE QUEZADA CNP [address], [place], [address] , [place] - [facility] 5 13:02:24 Hyperlipid emia 67918173 Active 2024 DANIELLE QUEZADA, RELEASE ENGINEER [address] [facility], [address], [place], [address] , [place] [facility] 13:02:26 Problem Notes None recorded. Medical [...] Address Organization Details Last Updated DateTime 5 23998.6 3 g 96 /min 18 /min 98.2 [degF] 96 % 96 % 122/79 mm[Hg] DANIELLE QUEZADA, REINA [address] [facility], [address], [place], [address], [place] - [facility] 5 12:08:32 Date Recorded Body weight Body mass index (BMI) Body height Heart rate Respiratory rate Body temperature Oxygen saturation Oxygen saturation in Arterial blood by Pulse oximetry Systolic And Diastolic Provider Name and Address Organization Details Last Updated DateTime 5 01635 g 26.6 kg/m2 152.4 cm 104 /min 16 /min 97.7 [degF] 97 % 97 % 118/72 mm[Hg] Harper Rosales MD [address] [facility], [facility] [address], [place], [address], [facility] 5 15:05:33 Date Recorded Body height Heart rate Respiratory rate Body temperature Oxygen saturation Oxygen saturation in Arterial blood by Pulse oximetry Systolic And Diastolic Provider Name and Address Organization Details Last Updated DateTime 5 152.4 cm 96 /min 18 /min 98 [degF] 98 % 98 % 118/72 mm[Hg] YARA CABALLERO [address] [facility] [facility], [address], [place], [address], [facility] 5 19:41:13 Date Recorded Body height Body mass index (BMI) Body weight Heart rate Respiratory rate Body temperature Oxygen saturation Oxygen saturation in Arterial blood by Pulse oximetry Systolic And Diastolic Provider Name and Address Organization Details Last Updated DateTime 5 152.4 cm 26.5 kg/m2 20681.4 8 g 83 /min 18 /min 97.6 [degF] 95 % 95 % 126/69 mm[Hg] YARA CABALLERO [address] [facility], [facility] [address], [place], [address], [facility] 5 11:10:53 Social History Question Answer Notes LastModified by Organizat ion Details LastModified Time Tobacco Smoking Status Never Smoker DANIELLE QUEZADA CNP [address] [facility], [facility] [address], [place], [address], [facility] 09/27/2024 11:20:38 Do You Have An Advance Directive? Yes Information not available 10/02/2024 What Is Your Code Status? DNI No G-tube Information not available 09/27/2024 Where Do You Live? Apartment Lives Alone, 3rd Floor, No Elevator. Information not available 10/02/2024 Legal Guardian? 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 Yes Information not available 10/02/2024 What Was [...] Recorded Time Tdap 04/19/2023 completed Tarsha Segovia [facility] 09/27/2024 13:01:36 influenza, unspecified formulation 04/19/2023 completed Tarshalaure Segovia [facility] 09/27/2024 13:01:50 Past Encounters Encounter ID Performer Location Encounter Start Date Encounter Closed Date Diagnosis/Indication Diagnosis SNOMED-CT Code Diagnosis ICD10 Code Diagnosis IMO Codes Diagnosis Note [id number] DANIELLE QUEZADA CNP [facility] [address] [place] [address] 09/27/2024 10:45:11 10/02/2024 13:55:38 Polymyalgia rheumatica 78838913 M35.3 Flare up with bilateral lower extremity [...] s/s of flare up. History of fall 46808372 9 Z91.81 S/t PMR flare up and weakness.P T and OT for strength, gait training and safety.Mor se screen on 09/27/24, scored high risk. Idiopathic pulmonary fibrosis 745361169 J84.112 OFev 150 mg BID.Contin ue monitor. Insomnia 226203085 G47.0 0 Prazosin 1 mg qHS.Trazod one 100 mg qHS.Stable , continue monitor. Coronary arteriosclerosis 11648251 I25.10 Isosorbide mononitrat e 30 mg ER daily.Resu me aspirin 81 mg daily.VSS, continue to monitor. Mixed anxi ety and depressive disorder 318906236 F41.8 Buspirone 7.5 BID.Mood is stable, continue monitor.Ps y therapy PRN Hyperglycemia 27796926 R 73.9 Likely due to steroid.Gl ucose stable, will continue monitor. Hyperlipidemia 54894110 E78.5 Continue atorvastat in 40 mg daily. [id number] Harper Rosales MD [facility] [address] [place] [address] 10/02/2024 13:38:53 10/04/2024 11:04:53 Polymyalgia rheumatica 63795398 M35.3 Per inpt notes, not completely c/w [...] with rheum as planned. History of fall 82754619 9 Z91.81 PT/OT as above.Hali tor for safety. Coronary arteriosclerosis 18272050 I25.10 No recent sxs.Contin ue isosorbide mononitrat e 30 mg ER qd, ASA 81 mg qd and atorvastat in 40 mg qd.Monitor for cardio sxs.F/U with cardio as planned. Idiopathic pulmonary fibrosis 933894473 J84.112 Continue Ofev 150 mg BID.Monito r resp status.F/U with pulmonary as planned. Insomnia 182963134 G47.0 0 Meds as above,Hali tor sleep patterns. Mixed anxi ety and depressive disorder 889116395 F41.8 F32.89 Mood good today.Cont inue buspirone 7.5 BID, prazosin 1 mg qhs and trazadone 100 mg qhs.Mood is stable, continue monitor.Ps y therapy PRN Hyperglycemia 09542023 R 73.09 Glucose only mildly elevated here.With HgA1C of 6.4 inpt.Likel y due to steroids.C ontinue to encourage healthy eating.Mon itor as outpt. Hyperlipidemia 72611466 E78.49 Continue atorvastat in 40 mg qdMonitor labs as outpt. [id number] [place] [address] 10/05/2024 18:12:50 10/11/2024 15:02:23 Polymyalgia rheumatica 39412682 M35.3 continues with burning pain in finger joint and legswill increase gabapentin to 300 mg TIDCurrent ly is on prednisone taper.15 mg daily for 2 weeks, then wean 2.5 mg q 2 weekly.Praveen lofen 10 mg TID for pain.Yary nue monitor the pain and effectiven ess, [id number] YARA CABALLERO [address] [place] [address] 10/12/2024 10:28:50 10/16/2024 10:09:49 Polymyalgia rheumatica 62783879 M35.3 polymyalgi a rheumatica -Per inpt notes, [...] with PCP as planned History of fall 28978381 9 Z91.81 Monitor for safety. Coronary arteriosclerosis 28452343 I25.10 Continue isosorbide mononitrat e 30 mg ER qd, ASA 81 mg qd and atorvastat in 40 mg qd.Monitor for cardio sxs.F/U with cardio as planned. Idiopathic pulmonary fibrosis 134571621 J84.112 Continue Ofev 150 mg BID.Monito r resp status.F/U with pulmonary as planned. Mixed anxi ety and depressive disorder 552530954 F41.8 F32.89 Continue buspirone 7.5 BID, prazosin 1 mg qhs and trazadone 100 mg qhs. Insomnia 401089529 G47.0 0 Meds as above, Hyperglycemia 73600217 R 73.09 Glucose only mildly elevatedWi th HgA1C of 6.4 inpt.Likel y due to steroids.C ontinue to encourage healthy eating.Mon itor as outpt. Hyperlipidemia 73051022 E78.49 Continue atorvastat in 40 mg qdMonitor labs as outpt. Health Concerns Section Related Observation LastModified by Organization Detai ls LastModified Time None Recorded Concern Status LastModified by Organization Details LastModified Time None Recorded Advance Directives Directive Y: Payers Insurance Date Sequence Insurance Name Policy Number Policy Haywood Covered Member ID Haywood Member ID Guarantor Name 10/12/2024 1 [facility] - DOS ON OR AFTER 2022 - MEDICARE ADVANTAGE [place] (MEDICARE REPLACEMENT/ADV ANTAGE - PPO) Patricia Alexandre [id number] Patricia Alexandre Notes Date Note Type Note Provider Name and Address Organization Details Recorded Time 09/27/2024 text/html Patricia is 58 y/o a [place]-speaking female admitted to [facility] on 09/26/24 from [facility]. PMH significant for Polymyalgia rheumatica, positive MADY, and RF, idiopathic pulmonary fibrosis, CAD, HLD and depression. Pt presented to [facility] ER on 09/23/24 due [...] on 09/27/24, scored high risk. DANIELLE QUEZADA, RELEASE ENGINEER [address] [facility], [address], [place], [address], [facility] [employer] 09/27/2024 15:11:28 10/02/2024 text/html This is a 58 yo woman who is here for rehab after an acute hospitalization for a severe PMR flare causing inability to walk.She also has mod/severe ILD at baseline causing chronic SOB and asthenia. She presented to the [facility] ED on 09/23 due to increasing leg pain and weakness.She had been inpt at [facility] 07/31-08/07 for similar sxs and was txed with solumedrol and then put on prednisone taper. 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 Her PMH includes PMR with + MADY and RF, idiopathic pulmonary fibrosis, CAD, elevated blood sugars when on prednisone (HgA1C 6.4), HLD and insomnia, anxiety/depression. Harper Rosales MD [address] [facility], [address], [place], [address], [facility] 10/02/2024 22:44:50 10/05/2024 text/html ROS as noted [...] continues to be bothersome. YARA CABALLERO [address] [facility], [address], [place], [address], [place] - [facility] 10/10/2024 19:41:49 10/12/2024 text/html Discharge Summary Summarized from MD Tao This is a 58 yo woman with a PMH includes PMR with + MADY and RF, idiopathic pulmonary fibrosis, CAD, elevated blood sugars when on prednisone (HgA1C 6.4), HLD and insomnia, anxiety/depression. Admitted to [facility] for rehab after an acute hospitalization for a severe PMR flare causing inability to walk.She also has mod/severe ILD at baseline causing chronic SOB and asthenia. She presented to the [facility] ED on 09/23 due to increasing leg pain and weakness.She was admitted due to being unable to bear wt on legs due to pain.She was txed with solumedrol and then transitioned to po prednisone to do a prolonged taper. She had been inpt at [facility] 07/31-08/07 for similar sxs [...] and VNA with services. YARA CABALLERO [address] [facility], [address], [place], [address], [facility] [email or web address] 10/12/2024 11:43:33 OBGyn Episode No OBEpisode recorded.
--- OUTSIDE RECORDS SUMMARY | 2025-06-09 15:50 | XMS_ITS | Encounter Summary ---
Author Organization [facility] Address [address] [place] [address] Care Team Providers Care Purse Maker Name Role Phone Lex Rich MD Primary Care Pr ovider Encounter Details Date Type Department Care Team (Late Contact Info) Description 09/27/2024 Lab Requisition [facility] - Main Lab [address] [facility] [place] [address] Mainor Crawford MD [address], [address] Polymyalgia rheumatica (CMS/HCC V24) Social [...] 07/03/2025 1:00 PM EST Consult Endocrinology - [place] [address] [place] [address] Melinda Lyle MD [address] [place] [address] 07/15/2025 9:00 AM EST Office Visit Pulmonology [facility] [address] [facility] [address] [place] [address] Aysha Hernandez MD [address] [place] [address] 08/02/2025 1:00 PM EST Consult [facility] [place] [address] [facility] [address] [place] [address] Arpita Willis PA [address] [place] [address] 08/06/2025 10:15 AM EST Office Visit Orthopedic Surgery [facility] [address] [facility] [address] [place] [address] Diony Toledo DPM [address] [facility] [address] [place] [address] 08/28/2025 1:00 PM EST Office Visit Gastroenterology - [address] [facility] [address] [facility] [address] [place] [address] Godfrey Claros MD [address] [facility] [address] [place] [address] 09/12/2025 12:30 PM EST Office Visit Adult Medicine [address] [phone] Lex Rich MD [address] [place] [address] documented as of this encounter Procedures Procedure [...] 09/27/2024 10:15 AM [facility] Potassium 3.8 3.5 - 5.5 mmol/L LAB CHEMISTRY METHOD 09/27/2024 10:15 AM [facility] Chloride 97 96 - 110 mmol/L LAB CHEMISTRY METHOD 09/27/2024 10:15 AM [facility] CO2 30 21 - [...] MD LAB BLOOD ORDERABLES Final Resul t [facility] [address] [place] [address], * (ABNORMAL) Complete blood count (09/27/2024 4:53 AM EST) WBC 8.7 4.8 - 10.8 K/mcL LAB HEMETOLOGY METHOD 09/27/2024 9:33 AM [facility] RBC 3.60(L) 3.80 - 4.80 M/mcL LAB HEMETOLOGY METHOD 09/27/2024 9:33 AM [facility] [...] 09/27/2024 9:33 AM [facility] Platelets 397 130 - 400 K/mcL LAB HEMETOLOGY METHOD 09/27/2024 9:33 AM [facility] MPV 9.2 7.0 - 11.0 FL LAB HEMETOLOGY METHOD 09/27/2024 9:33 AM [facility] NRBC 0.0 <1.0 % LAB HEMETOLOGY METHOD 09/27/2024 9:33 AM [facility] NRBC Absolute 0.00 <0.10 K/mcL LAB HEMETOLOGY METHOD 09/27/2024 9:33 AM [facility] Blood Venous blood specimen / Unknown Venipuncture / Unknown 09/27/2024 4:53 AM EST 09/27/2024 8:45 AM EST us Mainor Crawford MD LAB BLOOD ORDERABLES Final Resul t [facility] [address] [place] [address], documented in this encounter Visit Diagnoses Diagnosis Polymyalgia rheumatica (CMS/HCC V24) Polymyalgia rheumatica documented in this encounter Care Teams Purse Maker Relationship Specialty Start Date End Date Lex Rich MD [address] [place] [address] PCP - General Internal Medicine 05/24/24 documented as of this encounter
--- OUTSIDE RECORDS SUMMARY | 2025-06-09 15:50 | XMS_ITS | Clinical Summary ---
Author Organization [facility] [place] Address [address] [place] [address] Phone Care Team Providers Care Instrument Panel Assembler Name Role Phone Lex Rich MD Primary [...] OR DIRECTED BY MD 90 patch 1 025 Active mirtazapine (REMERON) 7.5 mg tablet Take 1 tablet (7.5 mg total) by mouth at bedtime. 025 Active rosuvastatin (CRESTOR) 10 mg tabletIndications :Mixed hyperlipidemia Take 1 tablet (10 mg total) by mouth 1 (one) time each day. 90 each 1 025 2025 Active hydroxychloroquin e (PLAQUENIL) 200 mg tablet Take 1 tablet (200 mg total) by mouth 1 (one) time each day. 025 Active albuterol 2.5 mg /3 mL (0.083 %) nebulizer solutionIndicatio ns:ILD (interstitial lung disease) ([facility] V24, [facility] V28) Take 3 mL (2.5 mg total) by nebulization every 6 (six) hours if needed for wheezing. 300 mL 3 025 2025 Active predniSONE (DELTASONE) 2.5 mg tablet Take 1 tablet (2.5 mg total) by mouth 1 (one) time each day. 60 each 025 2024 Active baclofen (LIORESAL) 10 mg tabletIndications :Polymyalgia rheumatica ([facility] V24) TAKE 1 TABLET BY MOUTH THREE TIMES A DAY 270 tablet 1 025 Active pregabalin (LYRICA) 100 mg capsule Take 1 capsule (100 mg total) by mouth 2 (two) times a day. 025 Active loperamide (Imodium A-D) 2 mg tabletIndications :Irritable bowel syndrome with diarrhea Take 1 tablet (2 mg total) by mouth 3 (three) times a day if needed for diarrhea. 90 tablet 1 025 Active meclizine (ANTIVERT) 12.5 mg tabletIndications :Vertigo Take 1 tablet (12.5 mg total) by mouth 2 (two) times a day if needed for dizziness or nausea. 90 tablet 1 025 2025 Active fluticasone propionate (FLONASE) 50 mcg/actuation nasal sprayIndications: Paranasal sinus disease Administer 2 sprays into each nostril 2 (two) times a day. Shake gently. Before first use, prime pump. After use, clean tip and replace cap. 16 g 1 025 2025 Active carbamide peroxide (DEBROX) 6.5 % otic solutionIndicatio ns:Cerumen debris on tympanic membrane of left ear Administer 5 drops into the left ear 2 (two) times a day for 15 days. 15 mL 025 2024 Active gabapentin (NEURONTIN) 300 mg capsuleIndication s:Type 2 diabetes mellitus with diabetic polyneuropathy, without long-term current use of insulin ([facility] V24, [facility] V28) Take 1 capsule (300 mg total) by mouth 3 (three) times a day. 270 each 025 2024 Discontinued baclofen (LIORESAL) 10 mg tabletIndications :Polymyalgia rheumatica ([facility] V24) Take 1 tablet (10 mg total) by mouth 3 (three) times a day. 270 each 025 2024 Discontinued mycophenolate (CELLCEPT) 500 mg tablet Take 2 tablets (1,000 mg total) by mouth 2 (two) times a day. 120 each 5 025 2024 Discontinued(S feliz effects) gabapentin (NEURONTIN) 300 mg capsuleIndication s:Type 2 diabetes mellitus with diabetic polyneuropathy, without long-term current use of insulin ([facility] V24, [facility] V28) TAKE 1 CAPSULE BY MOUTH THREE TIMES A DAY 270 capsule 025 2024 Discontinued(T herapy completed) ondansetron (ZOFRAN) 4 mg tabletIndications :Chronic nausea Take 1 tablet (4 mg total) by mouth every 8 (eight) hours if needed for nausea or vomiting for up to 7 days. 20 tablet 2024 Active Problems Problem Noted Date Diagnosed Date Paranasal sinus disease 05/31/2025 Assessment & Plan (05/31/2025 11:53 AM EST): Her MRI shows some paranasal sinus mucosal thickening Advised to start Flonase twice daily. She is also referred to ENT given the left ear pain Orders: Ambulatory referral to ENT; Future fluticasone propionate (FLONASE) 50 mcg/actuation nasal spray; Administer 2 sprays into each nostril 2 (two) times a day. Shake gently. Before first use, prime pump. After use, clean tip and replace cap. Irritable bowel syndrome with diarrhea Assessment & Plan (05/31/2025 11:53 AM EST): As above. Will trial Imodium as needed Orders: loperamide (Imodium A-D) 2 mg tablet; Take 1 tablet (2 mg total) by mouth 3 (three) times a day if needed for diarrhea. Vertigo 05/31/2025 Assessment & Plan (05/31/2025 11:53 AM EST): Meclizine has been helpful for her vertigo and she is requesting a prescription. This is sent Orders: meclizine (ANTIVERT) 12.5 mg tablet; Take 1 tablet (12.5 mg total) by mouth 2 (two) times a day if needed for dizziness or nausea. Hepatic steatosis 02/25/2025 Assessment & Plan (05/31/2025 11:53 AM EST): Last CMP was within normal limits. Will continue to monitor. She has lost some weight since her last visit. About 11 pounds H. pylori infection 02/25/2025 Assessment & Plan (05/31/2025 11:53 AM EST): Pending H. pylori test of cure-this is ordered Orders: Helicobacter pylori breath test; Future Peripheral polyneuropathy 01/11/2025 Assessment & Plan (05/31/2025 11:53 AM EST): Continue follow-up with neurology. Continue pregabalin 100 mg twice daily Assessment & Plan (02/22/2025 12:02 PM EDT): Will increase gabapentin to 300 mg 3 times daily for better control of her neuropathy and pain. 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 Subclinical hyperthyroidism 07/27/2024 Assessment & Plan (05/31/2025 11:53 AM EST): She has lost 11 pounds in the past 3 months. Will check TSH given her history of subclinical hyperthyroidism Orders: Thyroid stimulating hormone with reflex to free t4 and free t3; Future Assessment & Plan (07/27/2024 6:05 PM [...] incisional pain. Directed to follow-up with her k 9 handler/ deputy Dr. Hernandez in regards to her pulmonary fibrosis. Will follow-up with the thoracic surgical department moving forward on a as needed basis and to contact the thoracic surgery department should she have any further questions or concerns in the future. Assessment & Plan (02/22/2025 12:02 PM EDT): Continue pulmonology follow-up both locally and in [place]. She knew continue prednisone and Ofev as prescribed by her k 9 handler/ deputy. Hyperlipidemia 06/27/2023 Assessment & Plan (05/31/2025 11:53 AM EST): Last cholesterol panel wast stable. LDL not at goal of <70 but we will continue just the Crestor 10 mg nightly for now given her history of abnormal liver enzymes. She is also on other medications that could affect her liver enzymes Assessment & Plan (02/22/2025 12:02 PM EDT): [...] Continue mirtazapine as prescribed by her psychiatrist Anxiety and depression 02/17/2023 Assessment & Plan (05/31/2025 11:53 AM EST): Continue follow-up with psychiatry. Continue BuSpar, prazosin and mirtazapine Assessment & Plan (02/22/2025 12:02 PM EDT): Continue BuSpar and prazosin as prescribed by her psychiatrist Localized osteoporosis witho ut current pathological fracture 02/17/2023 Assessment & Plan (05/31/2025 11:53 AM EST): Previously referred to endocrinology but advised to go down to the department to schedule an appointment for initiation of treatment and further testing given her age. The chronic steroid use is likely contributory Assessment & Plan (02/22/2025 12:02 PM EDT): [...] provided CAD (coronary artery disease) 05/01/2024 05/28/2024 Overweight (BMI 25.0-29.9) 06/24/2023 1 07/31/2024 Encounters Date Type Department Care Team Description 05/31/2025 11:00 AM EST Office Visit Adult Medicine [address] [phone] Lex Rich MD Type 2 diabetes mellitus with diabetic microalbuminuria, without long-term current use of insulin ([facility] V24, [facility] V28) (Primary Dx); Mixed hyperlipidemia; Peripheral polyneuropathy; Hepatic steatosis; Localized osteoporosis without current pathological fracture; Anxiety and depression; Paranasal sinus disease; Ear pain, left; Gastroesophageal reflux disease with esophagitis without hemorrhage; Chronic nausea; Irritable bowel syndrome with diarrhea; Vertigo; H. pylori infection; Cerumen debris on tympanic membrane of left ear; Subclinical hyperthyroidism; Weight loss 05/16/2025 11:45 AM EDT Office Visit Pulmonology - [address] [place] [phone] Aysha Hernandez MD ILD (interstitial lung disease) ([facility] V24, [facility] V28) (Primary Dx); Connective tissue disease (CMS/HCC V24) 05/16/2025 Results Follow-Up Adult Medicine [address] [phone] Christianne Vidales PA 05/10/2025 10:28 AM EDT - 05/10/2025 11:59 PM EDT Hospital Encounter Bone Density - [address] [phone] Osteopenia, unspecified location Discharge Disposition: Home or Self Care 04/11/2025 2:00 PM EDT Office Visit Pulmonology [address] [phone] Aysha Hernandez MD ILD (interstitial lung disease) ([facility]/HCC V24, CMS/HCC V28) (Primary Dx) 04/04/2025 10:00 AM EDT Office Visit Orthopedic Surgery [facility] [address] [phone] Diony Toledo DPM Rheumatoid arthritis involving both feet with positive rheumatoid factor (CMS/HCC V24, CMS/HCC V28) (Primary Dx); Follow-up exam; Diabetic mononeuropathy simplex (CMS/HCC V24, CMS/HCC V28); Neuritis 03/19/2025 8:45 AM EDT Office Visit Pulmonology [address] [phone] Aysha Hernandez MD ILD (interstitial lung disease) (CMS/HCC V24, CMS/HCC V28) (Primary Dx); Pulmonary fibrosis (CMS/HCC V24, CMS/HCC V28) 03/13/2025 10:41 AM EDT - 03/13/2025 11:59 PM EDT Hospital Encounter Radiology Department - [address] [phone] Encounter for screening mammogram for breast cancer Discharge Disposition: Home or Self Care 03/12/2025 2:43 PM EDT - 03/12/2025 11:59 PM EDT Hospital Encounter Radiology Department - [address] [place] [phone] Pressure in head Discharge Disposition: Home or [...] SURGERY CARDIAC CATHETERIZATION DONE ON 04/24/2024 AT [facility] [place] INDICATIONS CHEST PAIN Medical History Medical History Date Comments Depression Prediabetes 07/27/2024 Overweight (BMI 25.0-29.9) 06/24/2023 Family History Relation Name Status Comments Father [...] your loved ones. For example, child care centre manager or elderly care for an older adult? [...] Sign Reading Time Taken Comments Blood Pressure 94/70 05/31/2025 10:33 AM EST Pulse 94 05/31/2025 10:33 AM EST Temperature 36.6 C (97.8 F) 05/31/2025 10:33 AM EST Respiratory Rate 16 05/31/2025 10:33 AM EST Oxygen Saturation 97% 05/16/2025 11:58 AM EDT Inhaled Oxygen Concentration - - Weight 54.9 kg (121 lb) 05/31/2025 10:33 AM EST Height 152.4 cm (5') 05/31/2025 10:33 AM EST Body Mass Index 23.63 05/31/2025 10:33 AM EST Plan of Treatment Upcoming Encounters Date Type Department Care Team (Late st Contact Info) Description 07/03/2025 1:00 PM EST [place] [facility] [address] [place] [phone] Melinda Lyle MD [address] [place] [address] 07/15/2025 9:00 AM EST Office Visit Pulmonology [facility] 175 [facility] [address] [place] [phone] Aysha Hernandez MD [address] [place] [phone] 08/02/2025 1:00 PM EST Consult [facility] 175 [facility] [address] [place] [phone] Arpita Willis PA [address] [place] [phone] 08/06/2025 10:15 AM EST Office Visit Orthopedic Surgery [facility] [address] [facility] [address] [place] [phone] Diony Toledo, DPM 175 [facility] [address] [place] [phone] 08/28/2025 1:00 PM EST Office Visit Gastroenterology - [address] [facility] 299 [facility] [address] [place] [phone] Godfrey Claros MD [address] [facility] [address] [place], [place] [phone] 09/12/2025 12:30 PM EST Office Visit [facility] [address] [place], [place] [address] [place], [place] [phone] Lex Rich MD [address] [place] [address] Health Maintenance Due Date Last Done Comments Diabetes: Annual Foot Exam 1976 Diabetes: Annual Retina Eye Exam 1976 RSV Immunization Adult Patients (1 - Risk 50-74 years 1-dose series) 2016 Zoster Vaccines (1 of 2) 2016 Medicare Annual Wellness Visit 08/18/2023 COVID-19 Vaccine (2024- season) 2025 Diabetes: Blood Sugar Control Test (HGBA1C) 08/28/2025 [...] or Tdap) 04/19/2033 04/19/2023 Colorectal Cancer Screening: Stool Based Tests (FOBT/FIT) 10/17/2033 10/18/2023 Osteoporosis Screening (Bone Density Screening) 05/10/2035 05/10/2025 Influenza Vaccine Discontinued 04/19/2023 Colorectal Cancer Screening: Colonoscopy Discontinued 09/21/2023 Hepatitis C Screening Completed 07/12/2024, 023 Depression Screening Completed 10/18/2024 Pneumococcal Vaccine: 50+ Years Completed 11/22/2024 Cervical Cancer Screening: Pap Smear Discontinued HIB Vaccines Aged Out No longer eligi ble based on patient's age to complete this topic HIV Screening Discontinued HPV Vaccines Aged Out No longer eligi [...] 2:47 PM EDT ILD (interstitial lung disease) ([facility] V24, [facility] V28) CBC AND DIFFERENTIAL Routine 04/11/2025 2:47 PM EDT ILD (interstitial lung disease) ([facility]/HCC V24, [facility] V28) XR FOOT 3+ VIEWS BILAT Routine 04/04/2025 10:26 AM EDT Follow-up exam INJECTION TENDON OR LIGAMENT Routine 04/04/2025 10:00 AM EDT Rheumatoid arthritis involving both feet with positive rheumatoid factor (CMS/HCC V24, [facility] V28) INJECTION TENDON OR LIGAMENT Routine 04/04/2025 10:00 AM EDT Rheumatoid arthritis involving both feet with positive rheumatoid factor ([facility] V24, [facility] V28) MG MAMMO DIGITAL SCREENING W NEMESIO BILAT Routine 03/13/2025 10:57 AM EDT Encounter for screening mammogram for breast cancer MR BRAIN WO AND W CONTRAST Routine 03/12/2025 3:45 PM EDT Pressure in head MICROALBUMIN CREATININE URINE RATIO Routine 02/25/2025 9:14 AM EDT Type 2 diabetes mellitus with diabetic polyneuropathy, without long-term current use of insulin ([facility] V24, [facility] V28) COMPREHENSIVE METABOLIC PANEL Routine 02/25/2025 9:14 AM EDT Mixed hyperlipidemia HEMOGLOBIN A1C Routine 02/25/2025 9:14 AM EDT Type 2 diabetes mellitus with diabetic polyneuropathy, without long-term current use of insulin ([facility] V24, [facility] V28) LIPID PANEL WITH REFLEX TO DIRECT [...] to have osteoporosis by WHO criteria. [facility] Department of Internal Medicine recommends using [...] alternative screening schedule based on juany Iraheta., [facility] August 12, 2011 for patients with osteopenia [...] Signed Date: 05/13/2025 12:50 ET Workstation ID: [id number] Transcribed By: Self Edit Transcribed Date: 05/13/2025 [...] to have osteoporosis by WHO criteria. [facility] Department of Internal Medicine recommendsusing National [...] alternative screening schedule based on juany Iraheta., [facility] for patients with osteopenia (based on [...] Signed Date: 05/13/2025 12:50 ET Workstation ID: [id number] Transcribed By: Self Edit Transcribed Date: 05/13/2025 12:49 ET us Lex Rich MD IMG DXA PROCEDUR ES Final Result * (ABNORMAL) CBC auto differential (04/11/2025 2:47 PM EDT) WBC 9.5 4.8 - 10.8 K/mcL LAB HEMETOLOGY METHOD 04/11/2025 6:27 PM EDT [facility] RBC 4.30 3.80 - 4.80 M/mcL LAB HEMETOLOGY METHOD 04/11/2025 6:27 PM EDT [facility] Hemoglobin 12.8 11.5 - 16.0 g/dL LAB HEMETOLOGY METHOD 04/11/2025 6:27 PM EDT [facility] Hematocrit 40.2 35.0 - 47.0 % LAB HEMETOLOGY METHOD 04/11/2025 6:27 PM EDT [facility] MCV 93.9 79.0 - 98.0 FL LAB HEMETOLOGY METHOD 04/11/2025 6:27 PM EDT [facility] MCH 29.9 27.0 - 32.0 pcg LAB HEMETOLOGY METHOD 04/11/2025 6:27 PM EDT [facility] MCHC 31.8(L) 32.0 - 37.0 g/dL LAB HEMETOLOGY METHOD 04/11/2025 6:27 PM EDT [facility] RDW 14.8 11.0 - 15.0 % LAB HEMETOLOGY METHOD 04/11/2025 6:27 PM EDT [facility] Platelets 526(H) 130 - 400 K/mcL LAB HEMETOLOGY METHOD 04/11/2025 6:27 PM EDT [facility] MPV 9.5 7.0 - 11.0 FL LAB HEMETOLOGY [facility] NRBC 0.0 <1.0 % LAB HEMETOLOGY METHOD 04/11/2025 6:27 PM [facility] NRBC Absolute 0.00 <0.10 K/mcL LAB HEMETOLOGY METHOD 04/11/2025 6:27 PM [facility] Neutrophils Relative 68.7 % LAB HEMETOLOGY METHOD 04/11/2025 6:27 PM [facility] Lymphocytes Relative 25.8 % LAB HEMETOLOGY METHOD 04/11/2025 6:27 PM [facility] Monocytes Relative 3.9 % LAB HEMETOLOGY METHOD 04/11/2025 6:27 PM [facility] Eosinophils Relative 0.1 % LAB HEMETOLOGY METHOD 04/11/2025 6:27 PM [facility] Basophils Relative 0.9 % LAB HEMETOLOGY METHOD 04/11/2025 6:27 PM [facility] Immature Granulocytes Relative 0.6 % LAB HEMETOLOGY METHOD 04/11/2025 6:27 PM [facility] Neutrophils Absolute 6.55 1.50 - 7.00 K/mcL LAB HEMETOLOGY METHOD 04/11/2025 6:27 PM [facility] Lymphocytes Absolute 2.46 1.00 - 5.00 K/mcL LAB HEMETOLOGY METHOD 04/11/2025 6:27 PM [facility] Monocytes Absolute 0.37 0.20 - 1.00 K/mcL LAB HEMETOLOGY METHOD 04/11/2025 6:27 PM [facility] Eosinophils Absolute 0.01 0.00 - 0.50 K/mcL LAB HEMETOLOGY METHOD 04/11/2025 6:27 PM [facility] Basophils Absolute 0.09 0.00 - 0.20 K/[facility] LAB HEMETOLOGY METHOD 04/11/2025 6:27 PM EDT [facility] Immature Granulocytes Absolute 0.06(H) 0.00 - 0.03 K/[facility] LAB HEMETOLOGY METHOD 04/11/2025 6:27 PM EDT [facility] Blood Venous blood specimen / Unknown Venipuncture / Unknown 04/11/2025 2:47 PM EDT 04/11/2025 2:47 PM EDT us Aysha Hernandez MD LAB BLOOD ORDERABLES Final Resul t [facility] [address] [place] [address], [place] [phone] * XR Foot 3+ Views bilat (04/04/2025 [...] is recommended in 1 year. Mammo Location: [facility] Radiology Department, [address] [place] [address], [id number], . -------- FINAL REPORT -------- Dictated By: Maya Garcia Dictated Date: 03/14/2025 11:23 ET Assigned Physician: Maya Garcia Reviewed and Electronically Signed By: Maya Garcia Signed Date: 03/14/2025 11:27 ET Workstation ID: [id number] Transcribed By: Self Edit Transcribed Date: 03/14/2025 [...] is recommended in 1 year. Mammo Location: [facility] Radiology Department, [address] [place] [address], [id number], . -------- FINAL REPORT -------- Dictated By: Maya Garcia Dictated Date: 03/14/2025 11:23 ET Assigned Physician: Maya Garcia Reviewed and Electronically Signed By: Maya Garcia Signed Date: 03/14/2025 11:27 ET Workstation ID: [id number] Transcribed By: Self Edit Transcribed Date: 03/14/2025 11:23 ET Lex Rich MD IM BI PROCEDURE S Final Result * MR [...] Signed Date: 03/12/2025 17:45 ET Workstation ID: [id number] Transcribed By: Self Edit Transcribed Date: 03/12/2025 [...] Signed Date: 03/12/2025 17:45 ET Workstation ID: [id number] Transcribed By: Self Edit Transcribed Date: 03/12/2025 17:33 ET Lex Rich MD [facility] [place] PROCEDUR ES Final Result * Lipid [...] Result [facility] [address] [place] [address], [place] [phone] * Microalbumin creatinine urine ratio (02/25/2025 9:14 [...] ORDERA BLES Final Result Performing Organization Address [facility]/ZIP Co de Phone Number [facility] [address] [place] [address], [place] [phone] * Hemoglobin A1c (02/25/2025 9:14 AM EDT) [facility] Hemoglobin A1C 5.9 <6.5 % LAB CHEMISTRY [...] ORDERA BLES Final Result Performing Organization Address [facility]/ZIP Co de Phone Number [facility] [address] [place] [address], [place] [phone] * (ABNORMAL) Comprehensive metabolic panel (02/25/2025 9:14 AM EDT) [facility] Sodium 137 133 - 145 mmol/L LAB CHEMISTRY METHOD 02/25/2025 2:45 PM [facility] Potassium 5.0 3.5 - 5.5 mmol/L LAB CHEMISTRY METHOD 02/25/2025 2:45 PM [facility] Chloride 104 96 - 110 mmol/L LAB CHEMISTRY METHOD 02/25/2025 2:45 PM [facility] CO2 28 21 - 32 mmol/L LAB CHEMISTRY METHOD 02/25/2025 2:45 PM [facility] Anion Gap 5 3 - 11 LAB CHEMISTRY METHOD 02/25/2025 2:45 PM [facility] Glucose 120(H) 70 - 100 mg/dL LAB CHEMISTRY METHOD 02/25/2025 2:45 PM [facility] BUN 12 5 - 25 mg/dL LAB CHEMISTRY METHOD 02/25/2025 2:45 PM [facility] Creatinine 0.72 0.50 - 1.10 mg/dL LAB CHEMISTRY METHOD 02/25/2025 2:45 PM [facility] eGFR 97 >=60 mL/min/1. 73m2 LAB CHEMISTRY METHOD 02/25/2025 2:45 PM [facility] Comment:Calculation based on the Chronic Kidney Disease Epidemiology Collaboration (CKD-EPI) equation refit without adjustment for race. BUN/Creatinine Ratio 16.7 LAB CHEMISTRY METHOD 02/25/2025 2:45 PM [facility] Calcium 9.6 8.5 - 10.5 mg/dL LAB CHEMISTRY METHOD 02/25/2025 2:45 PM [facility] AST (SGOT) 18 10 - 42 unit/L LAB CHEMISTRY METHOD 02/25/2025 2:45 PM [facility] ALT (SGPT) 37 10 - 60 unit/L LAB CHEMISTRY METHOD 02/25/2025 2:45 PM EDT [facility] Alkaline Phosphatase 98 42 - 121 unit/L LAB CHEMISTRY METHOD 02/25/2025 2:45 PM EDT [facility] Total Protein 7.1 6.0 - 8.0 g/dL LAB CHEMISTRY METHOD 02/25/2025 2:45 PM EDT [facility] Albumin 3.2 3.2 - 5.0 g/dL LAB CHEMISTRY METHOD 02/25/2025 2:45 PM EDT [facility] Total Bilirubin 0.3 0.0 - 1.4 mg/dL LAB CHEMISTRY METHOD 02/25/2025 2:45 PM EDT [facility] Blood Venous blood specimen / Unknown Venipuncture / Unknown 02/25/2025 9:14 AM EDT 02/25/2025 9:14 AM EDT Lex Rich MD LAB BLOOD ORDERA BLES Final Result Performing Organization Address City/[facility]/ZIP Co de Phone Number [facility] [address] [place] [address], [place] [phone] * Hepatitis C antibody (07/12/2024 10:05 AM EST) Hepatitis C Antibody Negative Negative LAB CHEMISTRY METHOD 07/12/2024 1:27 PM EST [facility] Blood Venous blood specimen / Unknown Venipuncture / Unknown 07/12/2024 10:05 AM EST 07/12/2024 10:05 AM EST Lex Rich MD LAB BLOOD ORDERA BLES Final Result [facility] [address] [place] [address], [place] [phone] * Hm Colonoscopy (09/21/2023) HM Colonoscopy no interpreta tion,abstr acted Anatomical Region Laterality Modality Other us Historical Provider HEALTH MAINTENANCE Final Result from Last 3 Months or Most Recently Relevant to Health Maintenance Insurance [facility] MEDICARE Member Subscriber Plan / Payer (Ef fective 2022-Present) Name:JARED MEHRAN Relation to Subscriber:Self Name:Mehran Alexandre Payer ID:[id number] Group ID:[id number] Type:Not on file Address: [place] [address] [place] [id number] Care Teams Instrument Panel Assembler Relationship Specialty Start Date End Date Lex Rich MD [address] [place] [phone] PCP - General Internal Medicine 05/24/24
--- OUTSIDE RECORDS SUMMARY | 2025-06-09 15:50 | XMS_ITS | Encounter Summary ---
Author Organization [facility] Address [address] [place] [address] Care Team Providers Care Optics Manufacturing Technician Name Role Phone Lex Rich MD Primary Care Pr ovider Encounter Details Date Type Department Care Team (Late st Contact Info) Description 02/26/[address] [facility] - Main Lab [address] [facility] [place] [address] Susanne Cohen MD [address] [place] [phone] Pulmonary fibrosis, unspecified (CMS/HCC V24, CMS/HCC V28) [...] for your loved ones. For example, child health associate or elderly care for an older adult? [...] 07/03/2025 1:00 PM EST Consult Endocrinology - [place] [address] [place] [address] Melinda Lyle MD [address] [place] [address] 07/15/2025 9:00 AM EST Office Visit Pulmonology [facility] 175 [facility] 200 [place] [address] Aysha Hernandez MD [address] [place] [phone] 08/02/2025 1:00 PM EST Consult [facility] 175 [facility] 150 [place] [phone] Arpita Willis PA [address] [place] [phone] 08/06/2025 10:15 AM EST Office Visit Orthopedic Surgery [facility] 250 175 [facility] 250 [place] [phone] Diony Toledo DPM 175 [facility] 250 [place] [phone] 08/28/2025 1:00 PM EST Office Visit Gastroenterology - 299 [facility] 299 [facility] 419 [place] [address] Godfrey Claros MD 299 [facility] 419 [place] [address] 09/12/2025 12:30 PM EST Office Visit Adult Medicine [facility] [address] [place] [address] Lex Rich MD [address] [place] [address] documented as of this encounter Procedures Procedure Name Priority Date/Time Associated Diagnosis Comments HISTORICAL SURGICAL PATHOLOGY CASE Routine 02/26/2025 1:00 PM EDT Pulmonary fibrosis, unspecified (CMS/HCC V24, CMS/HCC V28) documented in this encounter Results * Historical Pathology Case (02/26/2025 1:00 PM EDT) Final Diagnosis This case was created to document slides being sent to [facility] from a historical case accessioned in [...] Description A. Lung, Right Upper Lobe, : [id number] Whole case (5) sent JS/KK 05/08/2025 11:19 [...] LAB (NON-INTERFACED) [facility] [address] [place] [address], documented in this encounter Visit Diagnoses Diagnosis Pulmonary fibrosis, unspecified (CMS/HCC V24, CMS/HCC V28) documented in this encounter Additional Health Concerns Assessment Noted Time PHQ-9 Depression Total Score: 0 10/19/19 25 8:17 AM EDT documented as of this encounter Care Teams Optics Manufacturing Technician Relationship Specialty Start Date End Date Lex Rich MD [address] [place] [phone] PCP - General Internal Medicine 05/24/24 documented as of this encounter
[2025-06-09 19:02] VITALS: BP 104/60; PULSE 84; TEMP 36.9; O2SAT 97
[2025-06-09 20:14] VITALS: BP 99/60; PULSE 93; RESP 18; TEMP 36.9; O2SAT 95
[2025-06-09 20:16] VITALS: BP 99/60; PULSE 93; RESP 18; TEMP 36.9; O2SAT 95
== END 2025-06-09 20:17 | disposition home or self-care (01) ==
PROVIDERS: Physician Assistant Medical; Emergency Provider Student in an Organized Health Care Education/Training Program; PCP Family Medicine
DX: G44.209 Tension-type headache, unspecified, not intractable (principal); M43.6 Torticollis; Z86.79 Personal history of other diseases of the circulatory system; Z79.899 Other long term (current) drug therapy
CPT/HCPCS: 36415; 80053; 83735; 85025; 99283; 99284

== ENCOUNTER 2025-06-17 10:51 | Outpatient (REF) | payer OTHER, SELFPAY ==
--- NOTE | 2025-06-17 12:17 | EMG_ITS ---
Chief complaint: numbness and tingling of all extremities - G62.9 Polyneuropathy - peripheral neuropathy Referred by: Julia Dotson MD Procedure done: NCS of bilateral lower and left upper extremity Bilateral tibial and peroneal motor responses were obtained with F reflexes and tibial H reflexes. Left median and ulnar motor studies were performed. Bilateral superficial peroneal and sural sensory left median and ulnar mixed sensory and radial sensory studies were performed an EMG was performed. Findings: Tibial and peroneal motor amplitudes were markedly diminished with mild prolongation of distal latencies and of tibial conduction velocities. Sural responses were absent. Superficial peroneal amplitude was diminished on left side with slow conduction velocity. Right superficial peroneal seem to be okay. Left radial sensory was absent. Left median mixed distal latencies was borderline. H responses were absent. F responses were falling with a normal range. Impression: Mpioojpo-si-gzuymz axonal sensory and motor somewhat patchy peripheral neuropathy affecting legs more than upper extremity [place] [id number] x2 MTDD
--- OUTSIDE RECORDS SUMMARY | 2025-06-17 13:42 | XMS_ITS | Clinical Summary ---
Author Organization [facility] Address [address] [address] Phone Care Team Providers Care Block Cuber Name Role Phone Lex Rich MD Primary [...] incisional pain. Directed to follow-up with her power line installer and repairer Dr. Hernandez in regards to her pulmonary [...] topic Medical Devices Not on file Insurance . [address] [place] [address] CARE MEDICARE REPLACEMENT [address] [place] [id number] [facility] CARE MEDICARE REPLACEMENT MEDICARE REPLACEMENT MEDICARE REPLACEMENT MEDICARE REPLACEMENT , [facility] [address] [address] [facility] ONE CARE MEDICARE REPLACEMENT CHANDNI SHERMAN [facility] Care Teams Block Cuber Relationship Specialty Start Date End Date Lex Rich MD PCP - General Family Medicine 02/20/24 Additional Source Comments The information contained in this document represents components of the legal health record. It is not the complete legal health record.[facility]
--- OUTSIDE RECORDS SUMMARY | 2025-06-17 13:42 | XMS_ITS | Encounter Summary ---
Author Organization [employer] Address [address] [facility] 7[address] [place] [address] Care Team Providers Care Millwork Estimator Name Role Phone Unavailable Primary Care Provider Unavailabl e Reason for Visit * Reason Onset Date Comments New Patient 04/12/2023 Encounter Details Date Type Department Care Team (Late st Contact Info) Description 04/12/2023 Telephone [facility] MEDICINE [address] [place] [address] Oumar Chen MD 230 [place] [address] New Patient Social History Tobacco Use Types [...] PM EDT Tc to pt, to offer Truck Operator appt, No answer answer, could not leave voicemail due to not being set up . documented in this encounter Plan of Treatment Not on file documented as of this encounter Visit Diagnoses Not on filedocumented in this encounter
--- OUTSIDE RECORDS SUMMARY | 2025-06-17 13:42 | XMS_ITS | Clinical Summary ---
Author Organization [employer] Address [address] [facility] 7t [place] [address] Care Team Providers Care Factory Maintenance Manager Name Role Phone Unavailable Primary Care Provider [...] patient's age to complete this topic Insurance [facility] STANDARD [place] [phone]
== END 2025-06-17 10:52 | disposition home or self-care (01) ==
LOC: HO.NEURO 10:51
PROVIDERS: PCP Family Medicine; Visit Provider Psychiatry & Neurology Neurology
DX: R20.0 Anesthesia of skin (principal); R20.2 Paresthesia of skin; M79.2 Neuralgia and neuritis, unspecified
CPT/HCPCS: 95886; 95913

== ENCOUNTER → 2025-06-17 12:17 | Outpatient (BNV) | payer OTHER, SELFPAY | PROVIDERS: PCP Family Medicine; Visit Provider Psychiatry & Neurology Neurology | DX: G62.89 Other specified polyneuropathies (principal) | CPT/HCPCS: 95886; 95913 ==

== ENCOUNTER 2025-06-19 09:49 | Outpatient (AMB) | payer OTHER, SELFPAY ==
--- NOTE | 2025-06-19 10:02 | A.OFFVIS_ITS ---
Vital Signs 06/19/25 10:10 Height 5 ft Weight 121 lb BMI 23.6 BP 102/68 Blood Pressure Location Rt brachial Position Sitting Respiration 16 Pulse 111 H Pulse Source Pulse Oximeter Pulse Oximetry (%) 95 Oxygen Delivery Method Room Air Intake Visit Reasons: EMG RESULTS Digital Archivist Required: Yes Accompanied by: Niece Allergies No Known Allergies Allergy (Verified 06/19/25 10:11) Medication List - Last Reconciled 06/19/25 by Alysha Storm CNP atorvastatin 40 mg PO DAILY baclofen 10 mg PO TID buspirone 7.5 mg PO BID cholecalciferol (vitamin D3) 25 mcg PO DAILY cyanocobalamin (vitamin B-12) 1,000 mcg PO DAILY cyclobenzaprine 5 mg PO TID PRN diclofenac sodium 1% 4 grams topical QID isosorbide mononitrate ER 30 mg PO DAILY lidocaine 4% (AsperFlex (lidocaine)) 1 patch topical DAILY PRN nintedanib (Ofev) 150 mg PO BID prazosin 1 mg PO BEDTIME prednisone 10 mg PO DAILY pregabalin 100 mg PO BID trazodone 100 mg PO BEDTIME HPI Comments Details: Patricia is a 59-year-old female patient with past medical history of neuropathy symptoms affecting both of her legs. She was seen by Dr. Mauri ndiaye on 05/23/2025 at which time she reported that these symptoms have been going on for over a year starting after she took prednisone for pulmonary fibrosis which led to transient elevation in her blood sugars. Her symptoms include cramping sensation, heaviness to her legs, and pain in both legs. It has been impacting her sleep and quality of life. Prior to these of prednisone, she did not have a standing history of diabetes. Her symptoms improved after initiation of gabapentin. An EMG study was ordered at time of last visit. EMG 06/17/2025: Findings: Tibial and peroneal motor amplitudes were markedly diminished with mild prolongation of distal latencies and of tibial conduction velocities. Sural responses were absent. Superficial peroneal amplitude was diminished on left side with slow conduction velocity. Right superficial peroneal seem to be okay. Left radial sensory was absent. Left median mixed distal latencies was borderline. H responses were absent. F responses were falling with a normal range. Impression: Afwnauzs-mv-nogldf axonal sensory and motor somewhat patchy peripheral neuropathy affecting legs more than upper extremity. Patient tells me today that she was transition from gabapentin to Lyrica. She is currently taking Lyrica 100 mg twice daily for symptomatic management of her leg pain which has been working well to help her pain throughout the day. In terms of blood pressure control, she has not yet started on any means of therapy for blood glucose management. She does however have an upcoming ap pointment with endocrinology 07/03/25 at [place]. Also notes a right occipital headache that started 3 months ago. The pain occurs daily and is constant. The pain can be severe. It is not accompanied by light or sound sensitivity or any nausea. She has had some dizziness with her pain becoming more severe. It is worse during the night when she is laying flat and often awakes her out of sleep. She had an MRI at [place] recently (February 2025) and she had report on patient portal during visit. Report was unremarkable/normal study. [facility] Medical History (Updated 06/19/25 @ 10:48 by Alysha Storm CNP) CAD (coronary artery disease) Idiopathic pulmonary fibrosis Polymyalgia rheumatica Social History Household Members: None Housing: Apartment Do you presently have visiting nurse or other home services: No (AWAITING wardrobe coordinator) Patient Tobacco Use Status: Never used Tobacco e-Cigarette/Vaping Use: Never Used Advance Directives Date on File: 09/27/24 service: No Review of Systems Const All systems reviewed & are unremarkable except as noted in HPI and below Physical Exam Vital Signs: Last Vital Signs Pulse 111 H 06/19/25 10:10 Resp 16 06/19/25 10:10 BP 102/68 06/19/25 10:10 Pulse Ox 95 06/19/25 10:10 Oxygen Delivery Method Room Air 06/19/25 10:10 BMI result Body Mass Index 23.6 Const Orientation/consciousness: patient oriented x3 Back/Spine/Pelvis Other: Severe right occipital notch tenderness and right trapezius trigger point. Neuro General: patient oriented x3 and CN's II-XI intact bilaterally Cognition (Neuro): normal cognition Gait exam (Neuro): Assisted gait required Motor exam (neuro): 5/5 motor strength present throughout and no tremor noted Sensory Exam: sensory level loss detected (Slight reduction in vibratory sensation to the LLE great toe only ) Deep tendon reflexes (DTR's): Right triceps reflex intensity grade: 2+, Left triceps reflex intensity grade: 2+, Rt Biceps (C5, C6): 2+, Left biceps reflex intensity grade: 2+, Right brachioradialis reflex intensity grade: 2+, Left brachioradialis reflex intensity grade: 2+, Right patellar reflex intensity grade: 2+, Left patellar reflex intensity grade: 2+, Right ankle reflex intensity grade: 1+ and Left ankle reflex intensity grade: 1+ Assessment & Plan Assessment & Plan (1) Peripheral neuropathy: Code(s): G62.9 - Polyneuropathy, unspecified Category: Medical (2) Occipital neuralgia of right side: Code(s): M54.81 - Occipital neuralgia Category: Medical (3) Trigger point of right shoulder region: Code(s): M25.511 - Pain in right shoulder Category: Medical (4) Muscle pain, myofascial: Code(s): M79.18 - Myalgia, other site Category: Medical Plan Patricia is a 59-year-old female patient with past medical history of neuropathy symptoms affecting both of her legs. EMG did show gefypbev-gw-zhdoci axonal sensory and motor somewhat patchy peripheral neuropathy affecting legs more than upper extremity. Slightly related to blood glucose levels. She does have an upcoming appointment with Endocrinology at the beginning of June. In terms of pain management, she is currently doing well on the Lyrica 100 mg twice daily. She does note as well that she has been experiencing a right-sided severe headache. She does have an upcoming visit with Neurology at [place] for this reason in July. She has however in a great deal of pain today and I would like to help address this concern. She has no migrainous features to her headache and she does have exquisite point tenderness to the occipital notch area and a large trigger point to the right trapezius muscle. I would like to treat with an occipital nerve block and trigger point injections and in the meantime provide her with diclofenac gel for means of pain management until we establish a prior authorization. -Send office note to [place] Endocrinology -Continue lyrica 100mg twice daily -diclofenac gel 1% to the right occipital and trapezius area -Reurn to the clinic for right sided trigger point and occipital nerve block as soon as PA is obtained Medications: New diclofenac sodium 1% Apply to the right neck and shoulder area 4 grams topical QID 100 grams 3RF Coding Level of Care Code Est Pt Level 5 (19227) Diagnoses Peripheral neuropathy G62.9 Occipital neuralgia of right side M54.81 Trigger point of right shoulder region M25.511 Muscle pain, myofascial M79.18
[2025-06-19 10:10] VITALS: BP 102/68; PULSE 111; RESP 16; O2SAT 95; BMI 23.6
--- OUTSIDE RECORDS SUMMARY | 2025-06-19 11:20 | XMS_ITS | Encounter Summary ---
Author Organization [facility] Address [address] [place] [address] Care Team Providers Care Cotton Wringer Name Role Phone Lex Rich MD Primary Care Pr ovider Encounter Details Date Type Department Care Team (Late Contact Info) Description 09/27/2024 Lab Requisition [facility] - Main Lab 299 [facility] [place] [address] Mainor Crawford MD [address], [address] Polymyalgia rheumatica (CMS/HCC V24) Social [...] 07/03/2025 1:00 PM EST Consult Endocrinology - [place] [address] [place] [address] Meilnda Lyle MD [address] [place] [address] 07/15/2025 9:00 AM EST Office Visit Pulmonology [facility] 175 [facility] 200 [place] [address] Aysha Hernandez MD [address] [place] [address] 08/02/2025 1:00 PM EST Consult [facility] [place] 175 [facility] 150 [place] [phone] Arpita Willis PA [address] [place] [phone] 08/06/2025 10:15 AM EST Office Visit Orthopedic Surgery [facility] 250 175 [facility] 250 [place] [address] Diony Toledo DPM 175 [facility] 250 [place] [phone] 08/28/2025 1:00 PM EST Office Visit Gastroenterology - 299 [facility] 299 [facility] 419 [place] [address] Godfrey Claros MD 299 [facility] 419 [place] [address] 09/12/2025 12:30 PM EST Office Visit Adult Medicine [address] [phone] Lex Rich MD [address] [place] [address] documented as of this encounter Procedures Procedure Name Priority Date/Time Associated Diagnosis Comments COMPLETE BLOOD COUNT Routine 09/27/2024 4:53 AM EST Polymyalgia rheumatica (CMS/HCC) COMPREHENSIVE METABOLIC PANEL Routine 09/27/2024 4:53 AM EST Polymyalgia rheumatica (CMS/HCC) documented in this encounter Results * (ABNORMAL) Comprehensive metabolic panel (09/27/2024 4:53 AM EST) Sodium 134 133 - 145 mmol/L LAB CHEMISTRY METHOD 09/27/2024 10:15 AM [facility] Potassium 3.8 3.5 - 5.5 mmol/L LAB CHEMISTRY METHOD 09/27/2024 10:15 AM [facility] Chloride 97 96 - 110 mmol/L LAB CHEMISTRY METHOD 09/27/2024 10:15 AM [facility] CO2 30 21 - 32 mmol/L LAB CHEMISTRY METHOD 09/27/2024 10:15 AM [facility] Anion Gap 7 3 - 11 LAB CHEMISTRY METHOD 09/27/2024 10:15 AM [facility] Glucose 108(H) 70 - 100 mg/dL LAB CHEMISTRY METHOD 09/27/2024 10:15 AM [facility] BUN 19 5 - 25 mg/dL LAB CHEMISTRY METHOD 09/27/2024 10:15 AM [facility] Creatinine 0.57 0.50 - 1.10 mg/dL LAB CHEMISTRY METHOD 09/27/2024 10:15 AM [facility] eGFR 106 >=60 mL/min/1. 73m2 LAB CHEMISTRY METHOD 09/27/2024 10:15 AM [facility] Comment:Calculation based on the Chronic Kidney Disease Epidemiology Collaboration (CKD-EPI) equation refit without adjustment for race. BUN/Creatinine Ratio 33.3 LAB CHEMISTRY METHOD 09/27/2024 10:15 AM [facility] Calcium 8.6 8.5 - 10.5 mg/dL LAB CHEMISTRY METHOD 09/27/2024 10:15 AM [facility] AST (SGOT) 35 10 - 42 unit/L LAB CHEMISTRY METHOD 09/27/2024 10:15 AM [facility] ALT (SGPT) 60 10 - 60 unit/L LAB CHEMISTRY METHOD 09/27/2024 10:15 AM [facility] Alkaline Phosphatase 100 42 - 121 unit/L LAB CHEMISTRY METHOD 09/27/2024 10:15 AM [facility] Total Protein 5.8(L) 6.0 - 8.0 g/dL LAB CHEMISTRY METHOD 09/27/2024 10:15 AM [facility] Albumin 2.3(L) 3.2 - 5.0 g/dL LAB CHEMISTRY METHOD 09/27/2024 10:15 AM [facility] Total Bilirubin 0.3 0.0 - 1.4 mg/dL LAB CHEMISTRY METHOD 09/27/2024 10:15 AM [facility] Blood Venous blood specimen / Unknown Venipuncture / Unknown 09/27/2024 4:53 AM EST 09/27/2024 8:45 AM EST us Mainor Crawford MD LAB BLOOD ORDERABLES Final Resul t [facility] [address] [place] [address], * (ABNORMAL) Complete blood count (09/27/2024 4:53 AM EST) WBC 8.7 4.8 - 10.8 K/mcL LAB HEMETOLOGY METHOD 09/27/2024 9:33 AM [facility] RBC 3.60(L) 3.80 - 4.80 M/mcL LAB HEMETOLOGY METHOD 09/27/2024 9:33 AM [facility] Hemoglobin 10.5(L) 11.5 - 16.0 g/dL LAB HEMETOLOGY METHOD 09/27/2024 9:33 AM [facility] Hematocrit 33.3(L) 35.0 - 47.0 % LAB HEMETOLOGY METHOD 09/27/2024 9:33 AM [facility] MCV 92.2 79.0 - 98.0 FL LAB HEMETOLOGY METHOD 09/27/2024 9:33 AM [facility] MCH 29.1 27.0 - 32.0 pcg LAB HEMETOLOGY METHOD 09/27/2024 9:33 AM [facility] MCHC 31.5(L) 32.0 - 37.0 g/dL LAB HEMETOLOGY METHOD 09/27/2024 9:33 AM [facility] RDW 17.8(H) 11.0 - 15.0 % LAB HEMETOLOGY METHOD 09/27/2024 9:33 AM [facility] Platelets 397 130 - 400 K/mcL LAB HEMETOLOGY METHOD 09/27/2024 9:33 AM [facility] MPV 9.2 7.0 - 11.0 FL LAB HEMETOLOGY METHOD 09/27/2024 9:33 AM [facility] NRBC 0.0 <1.0 % LAB HEMETOLOGY METHOD 09/27/2024 9:33 AM [facility] NRBC Absolute 0.00 <0.10 K/mcL LAB HEMETOLOGY METHOD 09/27/2024 9:33 AM [facility] Blood Venous blood specimen / Unknown Venipuncture / Unknown 09/27/2024 4:53 AM EST 09/27/2024 8:45 AM EST us Mainor Crawford MD LAB BLOOD ORDERABLES Final Resul t [facility] [address] [place] [address], documented in this encounter Visit Diagnoses Diagnosis Polymyalgia rheumatica (CMS/HCC V24) Polymyalgia rheumatica documented in this encounter Care Teams Cotton Wringer Relationship Specialty Start Date End Date Lex Rich MD [address] [place] [address] PCP - General Internal Medicine 05/24/24 documented as of this encounter
--- OUTSIDE RECORDS SUMMARY | 2025-06-19 11:20 | XMS_ITS | Clinical Summary ---
Author Organization [facility] Address [address] [place] [phone] Phone Care Team Providers Care Mica Miner Name Role Phone Lex Rich MD Primary [...] incisional pain. Directed to follow-up with her construction inspector Dr. Hernandez in regards to her pulmonary [...] Medical Devices Not on file Insurance . [address] [place] [address] CARE MEDICARE REPLACEMENT [address] [place] [id number] [facility] CARE MEDICARE REPLACEMENT MEDICARE REPLACEMENT MEDICARE REPLACEMENT MEDICARE REPLACEMENT , [facility] [address], [place] [address] [facility] ONE CARE MEDICARE REPLACEMENT CHANDNI SHERMAN [facility] Care Teams Mica Miner Relationship Specialty Start Date End Date eLx Rich MD PCP - General Family Medicine 02/20/24 Additional Source Comments The information contained in this document represents components of the legal health record. It is not the complete legal health record.[facility]
--- OUTSIDE RECORDS SUMMARY | 2025-06-19 11:20 | XMS_ITS | Data Portability ---
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 angina pectoris [id number] 03 Active 2024 Not Available [facility] 13:30:08 Fall Active 2024 Not Available [facility] 13:31:11 Anxiety disorder 168492319 Active 2024 Not Available [facility] 16:50:45 Depressive disorder 83951574 Active 2024 Not Available [facility] 5 11:58:52 Abnormal Active 2024 Not Available [facility] 5 12:00:40 Muscle weakness 54713404 Active 2024 Not Available [facility] 5 11:10:39 Incoordina tion 676315283 Active 2024 Not Available [facility] 5 11:10:40 Difficulty walking 901607220 Active 2024 Not Available [facility] 5 11:11:53 Polymyalgi a rheumatica 91332634 Active 2024 Not Available [facility] 5 13:29:03 History of fall 101047382 Active 2024 DANIELLE QUEZADA CNP [address], [place], [address] , [facility] 5 13:02:11 Coronary arterioscl erosis 50229135 Active 2024 DANIELLE QUEZADA CNP [address], [address], [place], [address] , [facility] 5 13:02:14 Idiopathic pulmonary fibrosis 417294689 Active 2024 DANIELLE QUEZADA CNP [address], [address], [place], [address] , [facility] 5 13:02:17 Insomnia 055202761 Active 2024 DANIELLE QUEZADA CNP [address], [address], [place], [address] , [facility] 5 13:02:19 Mixed anxiety and depressive disorder 370583228 Active 2024 DANIELLE QUZEADA CNP [address], [address], [place], [address] , [facility] 5 13:02:20 Hyperglyce deven 53038853 Active 2024 DANIELLE QUEZADA CNP [address], [address], [place], [address] , [place] - [facility] 5 13:02:24 Hyperlipid emia 34146063 Active 2024 DANIELLE QUEZADA, FLEXBOARD OPERATOR [address] [facility], [address], [place], [address] , [place] - [facility] 13:02:26 Problem Notes None recorded. Medical [...] rate Respiratory rate Body temperature Oxygen saturation Systolic And Diastolic Provider Name and Address Organization Details Last Updated DateTime 5 78140.6 3 g 96 /min 18 /min 98.2 [degF] 96 % 122/79 mm[Hg] DANIELLE QUEZADA, FLEXBOARD OPERATOR [address] [facility], [address], [place], [address], [place] - [facility] 5 12:08:32 Date Recorded Body weight Body mass index (BMI) Body height Heart rate Respiratory rate Body temperature Oxygen saturation Systolic And Diastolic Provider Name and Address Organization Details Last Updated DateTime 5 19653 g 26.6 kg/m2 152.4 cm 104 /min 16 /min 97.7 [degF] 97 % 118/72 mm[Hg] Harper Rosales MD [address] [facility], [address], [place], [address], [facility] 5 15:05:33 Date Recorded Body height Heart rate Respiratory rate Body temperature Oxygen saturation Systolic And Diastolic Provider Name and Address Organization Details Last Updated DateTime 5 152.4 cm 96 /min 18 /min 98 [degF] 98 % 118/72 mm[Hg] YARA CABALLERO [address] [facility], [address], [place], [address], [facility] 5 19:41:13 Date Recorded Body height Body mass index (BMI) Body weight Heart rate Respiratory rate Body temperature Oxygen saturation Systolic And Diastolic Provider Name and Address Organization Details Last Updated DateTime 5 152.4 cm 26.5 kg/m2 11448.4 8 g 83 /min 18 /min 97.6 [degF] 95 % 126/69 mm[Hg] YARA CABALLERO [address] [facility], [address], [place], [address], [facility] 5 11:10:53 Social History Question Answer Notes LastModified by Organizat ion Details LastModified Time Tobacco Smoking Status Never Smoker DANIELLE QUEZADA CNP [address] [facility], [facility] [address], [place], [address], [facility] 09/27/2024 11:20:38 Do You Have An Advance Directive? Yes Information not available 10/02/2024 What Is Your Code Status? DNI No G-tube Information not available 09/27/2024 Where Do You Live? Apartment Lives Alone, 3rd Floor, No Elevator. Information not available 10/02/2024 Legal Guardian? No Informati on not available 10/02/2024 Do You Have A Medical Power Of Dynamic Balancer Set Up Worker? Yes Information not available 10/02/2024 What Was [...] use any illicit or recreational drugs? No [facility] Information not available 09/27/2024 Do you or have you ever used any other forms of tobacco or nicotine? No Information not available 09/27/2024 What is your level of alcohol consumption? None [facility] Information not available 09/27/2024 Mental Status None recorded. Family History Relationship Description Onset Age of this Age Resolved Age Notes LastModified by Organization Details LastModified Time Mother Hypertensive disorder [email or web address] Not available 2024 13:16:46 Sister Hypertensive disorder [facility] Not available 2024 13:16:46 Father Myocardial infarction Not available 09/27 13:17:03 Medical History No medical history recorded. Gynecological HistoryNo gynecological history recorded. Obstetrics History GPAL:G 0 P 0 0 0 0 Immunizations Vaccine Type Date Status Note Provider Nam e and Address Organization Details Recorded Time Tdap 04/19/2023 completed [facility] 09/27/2024 13:01:36 influenza, unspecified formulation 04/19/2023 completed [facility] 09/27/2024 13:01:50 Past Encounters Encounter ID Performer Location Encounter Start Date Encounter Closed Date Diagnosis/Indication Diagnosis SNOMED-CT Code Diagnosis ICD10 Code Diagnosis IMO Codes Diagnosis Note [id number] DNAIELLE QUEZADA, REINA REDSTONE [address] [place] [address] 09/27/2024 10:45:11 10/02/2024 13:55:38 Polymyalgia rheumatica 60318207 M35.3 Flare up with bilateral lower extremity weakness and inability to walk.ESR and CPR significan tly elevated.X -rays left hip after fall negative.T karen Booneu-medbianka l IV. Currently is on prednisone taper.15 [...] s/s of flare up. History of fall 73336001 9 Z91.81 S/t PMR flare up and weakness.P T and OT for strength, gait training and safety.Mor se screen on 09/27/24, scored high risk. Idiopathic pulmonary fibrosis 040161932 J84.112 OFev 150 mg BID.Contin ue monitor. Insomnia 915696188 G47.0 0 Prazosin 1 mg qHS.Trazod one 100 mg qHS.Stable , continue monitor. Coronary arteriosclerosis 01931579 I25.10 Isosorbide mononitrat e 30 mg ER daily.Resu me aspirin 81 mg daily.VSS, continue to monitor. Mixed anxi ety and depressive disorder 636832688 F41.8 Buspirone 7.5 BID.Mood is stable, continue monitor.Ps y therapy PRN Hyperglycemia 39003538 R 73.9 Likely due to steroid.Gl ucose stable, will continue monitor. Hyperlipidemia 85836777 E78.5 Continue atorvastat in 40 mg daily. [id number] Harper Rosales MD [place] [address] [place] [address] 10/02/2024 13:38:53 10/04/2024 11:04:53 Polymyalgia rheumatica 51660772 M35.3 Per inpt notes, not completely c/w [...] with rheum as planned. History of fall 67128818 9 Z91.81 PT/OT as above.Hali tor for safety. Coronary arteriosclerosis 96872084 I25.10 No recent sxs.Contin ue isosorbide mononitrat e 30 mg ER qd, ASA 81 mg qd and atorvastat in 40 mg qd.Monitor for cardio sxs.F/U with cardio as planned. Idiopathic pulmonary fibrosis 938195963 J84.112 Continue Ofev 150 mg BID.Monito r resp status.F/U with pulmonary as planned. Insomnia 634186068 G47.0 0 Meds as above,Hali tor sleep patterns. Mixed anxi ety and depressive disorder 677889476 F41.8 F32.89 Mood good today.Cont inue buspirone 7.5 BID, prazosin 1 mg qhs and trazadone 100 mg qhs.Mood is stable, continue monitor.Ps y therapy PRN Hyperglycemia 04729387 R 73.09 Glucose only mildly elevated here.With HgA1C of 6.4 inpt.Likel y due to steroids.C ontinue to encourage healthy eating.Mon itor as outpt. Hyperlipidemia 86608284 E78.49 Continue atorvastat in 40 mg qdMonitor labs as [place]pt. [id number] [place] [address] 10/05/2024 18:12:50 10/11/2024 15:02:23 Polymyalgia rheumatica 58767724 M35.3 continues with burning pain in finger joint and legswill increase gabapentin to 300 mg TIDCurrent ly is on prednisone taper.15 mg daily for 2 weeks, then wean 2.5 mg q 2 weekly.Praveen lofen 10 mg TID for pain.Yary nue monitor the pain and effectiven ess, [id number] [place] [address] 10/12/2024 10:28:50 10/16/2024 10:09:49 Polymyalgia rheumatica 02486746 M35.3 polymyalgi a rheumatica -Per inpt notes, [...] with PCP as planned History of fall 51988291 9 Z91.81 Monitor for safety. Coronary arteriosclerosis 91037765 I25.10 Continue isosorbide mononitrat e 30 mg ER qd, ASA 81 mg qd and atorvastat in 40 mg qd.Monitor for cardio sxs.F/U with cardio as planned. Idiopathic pulmonary fibrosis 613658178 J84.112 Continue Ofev 150 mg BID.Monito r resp status.F/U with pulmonary as planned. Mixed anxi ety and depressive disorder 709927721 F41.8 F32.89 Continue buspirone 7.5 BID, prazosin 1 mg qhs and trazadone 100 mg qhs. Insomnia 645268317 G47.0 0 Meds as above, Hyperglycemia 57413942 R 73.09 Glucose only mildly elevatedWi th HgA1C of 6.4 inpt.Likel y due to steroids.C ontinue to encourage healthy eating.Mon itor as outpt. Hyperlipidemia 90414835 E78.49 Continue atorvastat in 40 mg qdMonitor labs as outpt. Health Concerns Section Related Observation LastModified by Organization Detai ls LastModified Time None Recorded Concern Status LastModified by Organization Details LastModified Time None Recorded Advance Directives Directive Y: Payers Insurance Date Sequence Insurance Name Policy Number Policy Haywood Covered Member ID Haywood Member ID Guarantor Name 10/12/2024 1 [facility] - DOS ON OR AFTER 2022 - MEDICARE [place]VANTAGE [place] (MEDICARE REPLACEMENT/ADV ANTAGE - PPO) Patricia Alexandre [id number] Patricia Alexandre Notes Date Note Type Note Provider Name and Address Organization Details Recorded Time 09/27/2024 text/html Patricia is 58 y/o a Hong [place]er-speaking female admitted to [facility] on 09/26/24 from [facility]. PMH significant for Polymyalgia rheumatica, positive MADY, and RF, idiopathic pulmonary fibrosis, CAD, HLD and depression. Pt presented to [facility] ER on 09/23/24 due to increase increased [...] on 09/27/24, scored high risk. DANIELLE QUEZADA, FLEXBOARD OPERATOR [address] [facility], [address], [place], [address], [facility] 09/27/2024 15:11:28 10/02/2024 text/html This is a 58 yo woman who is here for rehab after an acute hospitalization for a severe PMR flare causing inability to walk.She also has mod/severe ILD at baseline causing chronic SOB and asthenia. She presented to the [facility] ED on 09/23 due to increasing leg pain and weakness.She had been inpt at [facility] 07/31-08/07 for similar sxs and was txed with solumedrol and then put on prednisone taper. She had been doing well at home until about a week [employer] when her left leg gave out and [...] gabapentin on 09/27.I see her with a romanian speaking staff member.She tells me burning pain is a little better, but still bad.No other c/o. Her PMH includes PMR with + MADY and RF, idiopathic pulmonary fibrosis, CAD, elevated blood sugars when on prednisone (HgA1C 6.4), HLD and insomnia, anxiety/depression. Harper Rosales MD [address] [facility], [address], [place], [address], [facility] 10/02/2024 22:44:50 10/05/2024 text/html ROS as [...] to be bothersome. YARA CABALLERO [address] [facility], [address], [place], [address], [facility] 10/10/2024 19:41:49 10/12/2024 text/html Discharge Summary Summarized from H&P This is a 58 yo woman with a PMH includes PMR with + MADY and RF, idiopathic pulmonary fibrosis, CAD, elevated blood sugars when on prednisone (HgA1C 6.4), HLD and insomnia, anxiety/depression. Admitted to [facility] for [facility] after an acute hospitalization for a severe PMR flare causing inability to walk.She also has mod/severe ILD at baseline causing chronic SOB and asthenia. She presented to the [facility] ED on 09/23 due to increasing leg pain and weakness.She was admitted due to being unable to bear wt on legs due to pain.She was txed with solumedrol and then transitioned to po prednisone to do a prolonged taper. She had been inpt at [facility] 07/31-08/07 for similar sxs and was txed [...] VNA with services. YARA CABALLERO [address] [facility], [address], [place], [address], [facility] - [employer] 10/12/2024 11:43:33 OBGyn Episode No OBEpisode recorded.
--- OUTSIDE RECORDS SUMMARY | 2025-06-19 11:20 | XMS_ITS | Encounter Summary ---
Author Organization [facility] Address [address] [place] [address] Care Team Providers Care Program Engagement Director Name Role Phone Lex Rich MD Primary Care Pr ovider Encounter Details Date Type Department Care Team ([facility] Contact Info) Description 09/19/2024 Billing Patient Not Present Adult Medicine [address] [phone] Emilia Wyman HI Social History Tobacco Use Types Packs/Day Years [...] Description 07/03/2025 1:00 PM EST Consult Endocrinology [address] [phone] Melinda Lyle MD [address] [place] [address] 07/15/2025 9:00 AM EST Office Visit Pulmonology - [address] [place] [address] Aysha Hernandez MD [address] [place] [address] 08/02/2025 1:00 PM EST Consult [facility] [address] [facility] [address] [place] [address] Arpita Willis PA [address] [place] [address] 08/06/2025 10:15 AM EST Office Visit Orthopedic Surgery - [place] [address] [facility] 250 [place] [address] Diony Toledo, DPM [address] [facility] 250 [place] [address] 08/28/2025 1:00 PM EST Office Visit Gastroenterology - [address] [facility] 299 [facility] [address] [place] [address] Godfrey Claros MD 299 [facility] 419 [place] [address] 09/12/2025 12:30 PM EST Office Visit Adult Medicine [address] [phone] Lex Rich MD [address] [place] [address] documented as of this encounter Visit Diagnoses Not on filedocumented in this encounter Care Teams Program Engagement Director Relationship Specialty Start Date End Date Lex Rich MD [address] [place] [address] PCP - General Internal Medicine 05/24/24 documented as of this encounter
--- OUTSIDE RECORDS SUMMARY | 2025-06-19 11:20 | XMS_ITS | Encounter Summary ---
Author Organization [facility] Address [address] [place] [address] Care Team Providers Care Home Help Aide Name Role Phone Lex Rich MD Primary Care Pr ovider Encounter Details Date Type Department Care Team (Late Contact Info) Description 10/07/2024 Lab Requisition [facility] - Main Lab 299 [facility] [place] [address] Mainor Crawford MD [address], [address] Polymyalgia rheumatica (CMS/HCC V24) Social [...] 07/03/2025 1:00 PM EST Consult Endocrinology - [place] [address] [place] [address] Melinda Lyle MD [address] [place] [address] 07/15/2025 9:00 AM EST Office Visit Pulmonology [facility] 175 [facility] 200 [place] [address] Aysha Hernandez MD 230 [place] [address] 08/02/2025 1:00 PM EST Consult [facility] [place] 175 [facility] 150 [place] [address] Arpita Willis PA 230 [place] [address] 08/06/2025 10:15 AM EST Office Visit Orthopedic Surgery [facility] 250 [address] [facility] 250 [place] [address] Diony Toledo DPM 175 [facility] 250 [place] [address] 08/28/2025 1:00 PM EST Office Visit Gastroenterology - 299 [facility] 299 [facility] 419 [place] [address] Godfrey Claros MD 299 [facility] 419 [place] [address] 09/12/2025 12:30 PM EST Office Visit Adult Medicine [address] [phone] Lex Rich MD [address] [place] [address] documented as of this encounter Procedures Procedure Name Priority Date/Time Associated Diagnosis Comments PREALBUMIN Routine 10/08/2024 5:24 AM EDT Polymyalgia rheumatica (CMS/HCC) documented in this encounter Results * Prealbumin (10/08/2024 5:24 AM EDT) Prealbumin 27 18 - 45 mg/dL LAB CHEMISTRY METHOD 10/08/2024 11:51 AM EDT [facility] Blood Venous blood specimen / Unknown Venipuncture / Unknown 10/08/2024 5:24 AM EDT 10/08/2024 10:33 AM EDT us Mainor Crawford MD LAB BLOOD ORDERABLES Final Resul t [facility] [address] [place] [address], documented in this encounter Visit Diagnoses Diagnosis Polymyalgia rheumatica (CMS/HCC V24) Polymyalgia rheumatica documented in this encounter Care Teams Home Help Aide Relationship Specialty Start Date End Date Lex Rich MD [address] [place] [address] PCP - General Internal Medicine 05/24/24 documented as of this encounter
--- OUTSIDE RECORDS SUMMARY | 2025-06-19 11:20 | XMS_ITS | Encounter Summary ---
Author Organization [facility] Address [address] [place] [address] Care Team Providers Care Dry Cleaning Counter Clerk Name Role Phone Lex Rich MD Primary Care Pr ovider Encounter Details Date Type Department Care Team (Late st Contact Info) Description 02/26/2025 Lab Requisition [facility] - Main Lab [address] [facility] [place] [address] Susanne Cohen MD 230 [place] [address] Pulmonary fibrosis, unspecified (CMS/HCC V24, CMS/HCC V28) [...] your loved ones. For example, child care counselor or elderly care for an older adult? [...] 07/03/2025 1:00 PM EST Consult Endocrinology - [place] [address] [place] [address] Melinda Lyle MD [address] [place] [address] 07/15/2025 9:00 AM EST Office Visit Pulmonology [facility] 175 [facility] 200 [place] [address] Aysha Hernandez MD 230 [place] [address] 08/02/2025 1:00 PM EST Consult [facility] 175 [facility] 150 [place] [address] Arpita Willis PA [address] [place] [phone] 08/06/2025 10:15 AM EST Office Visit Orthopedic Surgery [facility] 250 [address] [facility] 250 [place] [address] Diony Toledo DPM 175 [facility] 250 [place] [address] 08/28/2025 1:00 PM EST Office Visit Gastroenterology - 299 [facility] 299 [facility] 419 [place] [address] Godfrey Claros MD 299 [facility] 419 [place] [address] 09/12/2025 12:30 PM EST Office Visit Adult Medicine [facility] [address] [place] [address] Lex Rich MD [address] [place] [address] documented as of this encounter Procedures Procedure Name Priority Date/Time Associated Diagnosis Comments HISTORICAL SURGICAL PATHOLOGY CASE Routine 02/26/2025 1:00 PM EDT Pulmonary fibrosis, unspecified (CMS/HCC V24, CMS/HCC V28) documented in this encounter Results * Historical Pathology Case (02/26/2025 1:00 PM EDT) Final Diagnosis This case was created to document slides being sent to [facility] from a historical case accessioned in [...] Description A. Lung, Right Upper Lobe, : [id number] Whole case (5) sent JS/KK 05/08/2025 11:19 [...] (NON-INTERFACED) [facility] [address] [place] [address], documented in this encounter Visit Diagnoses Diagnosis Pulmonary fibrosis, unspecified (CMS/HCC V24, CMS/HCC V28) documented in this encounter Additional Health Concerns Assessment Noted Time PHQ-9 Depression Total Score: 0 10/19/19 25 8:17 AM EDT documented as of this encounter Care Teams Dry Cleaning Counter Clerk Relationship Specialty Start Date End Date Lex Rich MD [address] [place] [address] PCP - General Internal Medicine 05/24/24 documented as of this encounter
--- OUTSIDE RECORDS SUMMARY | 2025-06-19 11:20 | XMS_ITS | Data Portability ---
Author Organization [employer] Address [address] [place] [address] Care Team Providers Care Oncology Physician Assistant Name Role Phone HIM CCA OTHER Assessment Encounter Date Assessment Date Assessment LastModified by Organization Details LastModified Time 12/13/2023 12/13/2023 I provided real -time medical direction via phone for this encounter and was available for additional phone-based assistance as needed. I have reviewed and agree with the Assessment and Plan as documented by the Respiratory Care Technician. Patient given the opportunity to ask questions. Our service contacted for an assessment of: Chronic pain As per above, patient with hx of chronic pain. No new or worsening red S&S. No new bowel/bladder symptoms. No new gait abnl. No new neurological signs, symptoms or deficits. Per graduate intern on the scene, VSS, non-toxic. Neuro grossly [...] in the field was performed by my graduate intern colleague, as noted above, I provided real-time [...] Vitals Date Recorded Heart rate Oxygen saturation Body temperature Respiratory rate Systolic And Diastolic Provider Name and Address Organization Details Last Updated DateTime 4 65 /min 99 % 97.4 [degF] 17 /min 120/75 mm[Hg] Not Available [employer] - production 4 13:40:20 Date Recorded Heart rate Body temperature Respiratory rate Oxygen saturation Systolic And Diastolic Provider Name and Address Organization Details Last Updated DateTime 4 82 /min 98.7 [degF] 16 /min 98 % 120/76 mm[Hg] Not Available [facility] - production 4 19:15:34 Social History None recorded. Functional Status None recorded. Mental Status None recorded. Family History Nothing Reported. Medical History No medical history recorded. Gynecological HistoryNo gynecological history recorded. Obstetrics History GPAL:G 0 P 0 0 0 0 Past Encounters Encounter ID Performer Location Encounter Start Date Encounter Closed Date Diagnosis/Indication Diagnosis SNOMED-CT Code Diagnosis ICD10 Code Diagnosis IMO Codes Diagnosis Note [id number] Mariella Castro MD Main - [address] [phone] 12/13/2023 13:40:10 12/13/2023 17:51:43 Chronic pain 65531284 G89.29 [id number] Hafsa Angel MD Main - [address] [phone] 12/14/2023 19:15:30 12/15/2023 11:44:34 Erythematous rash [id number] R21 Health Concerns Section Related Observation LastModified by Organization Detai ls LastModified Time None Recorded Concern Status LastModified by Organization Details LastModified Time None Recorded Advance Directives Directive None Recorded Payers Insurance Date Sequence Insurance Name Policy Number Policy Haywood Covered Member ID Haywood Member ID Guarantor Name 12/12/2023 1 [facility] - DOS ON OR AFTER 2022 - DUAL ELIGIBLE - ASSISTED OPTIONS AND ONE CARE (MEDICARE REPLACEMENT/ADV ANTAGE - HMO) Patricia Alexandre [id number] Patricia Alexandre Notes Date Note Type Note [...] ................. ................. ................. ................. ................. ................. ..... Respiratory Care Technician Note From Elena Chahal: 58y F c/o [...] ................. ..... Disposition: Cole Castro MD [address] [facility],[address], [place], [address], JULIAN - [employer] 12/13/2023 13:48:03 12/14/2023 text/html CRC Nurse Triage Notes (Danelle Cotton): Reason For Request: Follow up from surgery /muscular spasms Chief Complaints: Pain PMH: Other Allergies: Unknown Comments: Mortuary Technician verified the member's name//address and phone number. Member is a 58 yr old female, kinyarwanda speaking PMH Son calling for member, had [...] [facility] [place]: [place] of right arm are chronic. [...] ................. ................. ................. ................. ................. ................. ........ Respiratory Care Technician Note From Caden Bennett: Dispatched to the call address for the follow up. [facility] and pain. [...] ..... Disposition: Fulfilled Hafsa Angel MD [address] [facility],[address], [place], [address], [employer] 12/14/2023 21:13:02 OBGyn Episode No OBEpisode recorded.
--- OUTSIDE RECORDS SUMMARY | 2025-06-19 11:20 | XMS_ITS | Encounter Summary ---
Author Organization [facility] Address [address] [place] [address] Care Team Providers Care Storekeeper Engineering Name Role Phone Lex Rich MD Primary Care Pr ovider Reason for Referral * Consultation (Routine) - Authorized Specialty Diagnoses / Procedures Referred By Contac t Referred To Contact Endocrinology Diagnoses Localized osteoporosis without current pathological fracture Lex Rich MD [address] [place] [address] Phone: tel: fax: [address] Phone: tel: fax: Referral ID Status Reason Start Date Expiration Date Visits Requested Visits Authorized [id number] Authorized Specialty Services Required 05/17/2026 1 1 Encounter Details Date Type Department Care Team (Late st Contact Info) Description 05/16/2025 Results Follow-Up Adult Medicine [address] [phone] Christianne Vidales PA [address] [place] [id number] Social History Tobacco Use Types Packs/Day Years [...] for your loved ones. 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 or elderly care for an older [...] 07/03/2025 1:00 PM EST Consult Endocrinology - [facility] [address] [place] [address] Melinda Lyle MD [address] [place] [address] 07/15/2025 9:00 AM EST Office Visit Pulmonology [facility] [address] [facility] [address] [place] [phone] Aysha Hernandez MD [address] [place] [phone] 08/02/2025 1:00 PM EST Consult [facility] [address] [facility] [address] [place] [phone] Arpita Willis PA [address] [place] [phone] 08/06/2025 10:15 AM EST Office Visit Orthopedic Surgery [facility] [address] [facility] [address] [place] [phone] Diony Toledo DPM 175 [facility] [address] [place] [phone] 08/28/2025 1:00 PM EST Office Visit Gastroenterology - [address] [facility] [address] [place] [address] Godfrey Claros MD [address] [facility] [address] [place] [address] 09/12/2025 12:30 PM EST Office Visit Adult Medicine [facility] [address] [place] [address] Lex Rich MD [address] [place] [address] Scheduled Referrals Name Type Priority Associated Diagnoses [...] documented as of this encounter Care Teams Storekeeper Engineering Relationship Specialty Start Date End Date Lex Rich MD [address] [place] [address] PCP - General Internal Medicine 05/24/24 documented as of this encounter
--- OUTSIDE RECORDS SUMMARY | 2025-06-19 11:21 | XMS_ITS | Clinical Summary ---
Author Organization [facility] [employer] Website Address [address] [place] [address] Phone Care Team Providers Care Gamb Cutter Name Role Phone Lex Rich MD Primary [...] %) nebulizer solutionIndicatio ns:ILD (interstitial lung disease) ([facility] V24, [facility] V28) Take 3 mL (2.5 mg total) by nebulization every 6 (six) hours if needed for wheezing. 300 mL 3 025 2025 Active baclofen (LIORESAL) 10 mg tabletIndications :Polymyalgia rheumatica ([facility] V24) TAKE 1 TABLET BY MOUTH THREE TIMES A DAY 270 tablet 1 Active pregabalin (LYRICA) 100 mg capsule Take [...] cap. 16 g 1 025 2025 Active predniSONE (DELTASONE) 2.5 mg tablet TAKE 1 TABLET BY MOUTH 1 TIME EACH DAY. 60 tablet 11 Active gabapentin (NEURONTIN) 300 mg capsuleIndication s:Type 2 diabetes mellitus with diabetic polyneuropathy, without long-term current use of insulin ([facility] V24, [facility] V28) Take 1 capsule (300 mg total) by mouth 3 (three) times a day. 270 each 025 2024 Discontinued baclofen (LIORESAL) 10 mg tabletIndications :Polymyalgia rheumatica ([facility] V24) Take 1 tablet (10 mg total) by mouth 3 (three) times a day. 270 each 025 2024 Discontinued mycophenolate (CELLCEPT) 500 mg tablet Take 2 tablets (1,000 mg total) by mouth 2 (two) times a day. 120 each 5 025 2024 Discontinued(S feliz effects) predniSONE (DELTASONE) 2.5 mg tablet Take 1 tablet (2.5 mg total) by mouth 1 (one) time each day. 60 each 025 2024 Discontinued gabapentin (NEURONTIN) 300 mg capsuleIndication s:Type 2 diabetes mellitus with diabetic polyneuropathy, without long-term current use of insulin ([facility] V24, [facility] V28) TAKE 1 CAPSULE BY MOUTH THREE TIMES A DAY 270 capsule 025 2024 Discontinued(T herapy completed) ondansetron (ZOFRAN) 4 mg tabletIndications :Chronic nausea Take 1 tablet (4 mg total) by mouth every 8 (eight) hours if needed for nausea or vomiting for up to 7 days. 20 tablet 025 2024 carbamide peroxide (DEBROX) 6.5 % otic solutionIndicatio ns:Cerumen debris on tympanic membrane of left ear Administer 5 drops into the left ear 2 (two) times a day for 15 days. 15 mL 025 2024 Active Problems Problem Noted Date Diagnosed [...] microalbuminuria, without long-term current use of insulin ([facility] V24, [facility] V28) 10/21/2024 Assessment & Plan (05/31/2025 11:53 [...] Future Bilateral calcaneal spurs 10/19/2024 Polymyalgia rheumatica ([facility] V24) 10/18/2024 Assessment & Plan (11/22/2024 [...] 12 hours or as directed by . Abnormal stress test 05/01/2024 Assessment & Plan [...] incisional pain. Directed to follow-up with her regulatory affairs coordinator Dr. Hernandez in regards to her pulmonary fibrosis. Will follow-up with the thoracic surgical department moving forward on a as needed basis and to contact the thoracic surgery department should she have any further questions or concerns in the future. Assessment & Plan (02/22/2025 12:02 PM EDT): Continue pulmonology follow-up both locally and in [place]. She knew continue prednisone and Ofev as prescribed by her regulatory affairs coordinator. Hyperlipidemia 06/27/2023 Assessment & Plan (05/31/2025 11:53 [...] 11:00 AM EST Office Visit Adult Medicine [address] [phone] Lex Rich MD Type 2 diabetes mellitus with diabetic microalbuminuria, without long-term current use of insulin ([facility] V24, [facility] V28) (Primary Dx); Mixed hyperlipidemia; Peripheral polyneuropathy; Hepatic steatosis; Localized osteoporosis without current pathological fracture; Anxiety and depression; Paranasal sinus disease; Ear pain, left; Gastroesophageal reflux disease with esophagitis without hemorrhage; Chronic nausea; Irritable bowel syndrome with diarrhea; Vertigo; H. pylori infection; Cerumen debris on tympanic membrane of left ear; Subclinical hyperthyroidism; Weight loss 05/16/2025 11:45 AM EDT Office Visit Pulmonology - [address] [place] [phone] Aysha Hernandez MD ILD (interstitial lung disease) ([facility] V24, [facility] V28) (Primary Dx); Connective tissue disease ([facility] V24) 05/16/2025 Results Follow-Up Adult Medicine [facility] [address] [place], [place] [phone] Christianne Vidales PA 05/10/2025 10:28 AM EDT - 05/10/2025 11:59 PM EDT Hospital Encounter Bone Density - [facility] [address] [place], [place] [phone] Osteopenia, unspecified location Discharge Disposition: Home or Self Care 04/11/2025 2:00 PM EDT Office Visit Pulmonology [facility] [address] [phone] Aysha Hernandez MD ILD (interstitial lung disease) ([facility] V24, [facility] V28) (Primary Dx) 04/04/2025 10:00 AM EDT Office Visit Orthopedic Surgery [facility] [address] [facility] [address] [place] [phone] Diony Toledo DPM Rheumatoid arthritis involving both feet with positive rheumatoid factor ([facility] V24, [facility] V28) (Primary Dx); Follow-up exam; Diabetic mononeuropathy simplex ([facility] V24, [facility] V28); Neuritis 03/19/2025 8:45 AM EDT Office Visit Pulmonology [facility] [address] [phone] Aysha Hernandez MD ILD (interstitial lung disease) ([facility] V24, [facility] V28) (Primary Dx); Pulmonary fibrosis ([facility] V24, [facility] V28) from Last 3 Months Immunizations Immunization Administration [...] your loved ones. For example, child care teacher or elderly care for an older [...] Livin g Live Births 1 1 1 Date Outcome GA Total [...] 07/03/2025 1:00 PM EST Consult Endocrinology - [facility] [address] [place] [phone] Melinda Lyle MD [address] [place] [phone] 07/15/2025 9:00 AM EST Office Visit Pulmonology [facility] 175 [facility] [address] [place] [phone] Aysha Hernandez MD [address] [place] [phone] 08/02/2025 1:00 PM EST Consult [facility] 175 [facility] [address] [place] [phone] Arpita Willis PA [address] [place] [phone] 08/06/2025 10:15 AM EST Office Visit Orthopedic Surgery [facility] 250 175 [facility] [address] [place] [phone] Diony Toledo, DPM 175 [facility] [address] [place] [phone] 08/28/2025 1:00 PM EST Office Visit Gastroenterology - [address] [facility] 299 [facility] [address] [place] [phone] Godfrey Claros MD 299 [facility] [address] [place], [place] [phone] 09/12/2025 12:30 PM EST Office Visit Adult Medicine [address] [phone] Lex Rich MD [address] [place] [phone] Health Maintenance Due Date Last Done Comments Diabetes: Annual Foot Exam 1976 Diabetes: Annual Retina Eye Exam 1976 RSV Immunization Adult Patients (1 - Risk 50-74 years 1-dose series) 2016 Zoster Vaccines (1 of 2) 2016 Medicare Annual Wellness Visit 08/18/2023 COVID-19 Vaccine ( - season) 2025 Diabetes: Blood Sugar Control Test [...] 2:47 PM EDT ILD (interstitial lung disease) ([facility] V24, [facility] V28) CBC AND DIFFERENTIAL Routine 04/11/2025 2:47 PM EDT ILD (interstitial lung disease) ([facility] V24, [facility] V28) XR FOOT 3+ VIEWS BILAT Routine 04/04/2025 10:26 AM EDT Follow-up exam INJECTION TENDON OR LIGAMENT Routine 04/04/2025 10:00 AM EDT Rheumatoid arthritis involving both feet with positive rheumatoid factor ([facility] V24, [facility] V28) INJECTION TENDON OR LIGAMENT Routine 04/04/2025 10:00 AM EDT Rheumatoid arthritis involving both feet with positive rheumatoid factor ([facility] V24, [facility] V28) MG MAMMO DIGITAL SCREENING W NEMESIO BILAT Routine 03/13/2025 10:57 AM EDT Encounter for screening mammogram for breast cancer MICROALBUMIN CREATININE URINE RATIO Routine 02/25/2025 9:14 AM EDT Type 2 diabetes mellitus with diabetic polyneuropathy, without long-term current use of insulin ([facility] V24, [facility] V28) COMPREHENSIVE METABOLIC PANEL Routine 02/25/2025 9:14 AM EDT Mixed hyperlipidemia HEMOGLOBIN A1C Routine 02/25/2025 9:14 AM EDT Type 2 diabetes mellitus with diabetic polyneuropathy, without long-term current use of insulin ([facility] V24, [facility] V28) LIPID PANEL WITH REFLEX [...] to have osteoporosis by WHO criteria. The [facility] Department of Internal Medicine recommends using [...] alternative screening schedule based on juany Iraheta., [facility] August 12, 2011 for patients [...] Signed Date: 05/13/2025 12:50 ET Workstation ID: [id number] Transcribed By: Self Edit Transcribed Date: 05/13/2025 [...] to have osteoporosis by WHO criteria. The [facility] Department of Internal Medicine recommendsusing National [...] alternative screening schedule based on [facility] for patients with [facility]openia (based [...] Signed Date: 05/13/2025 12:50 ET Workstation ID: [id number] Transcribed By: Self Edit Transcribed Date: 05/13/2025 12:49 ET us Lex Rich MD IM DXA PROCEDUR ES Final Result * (ABNORMAL) CBC auto differential (04/11/2025 2:47 PM EDT) WBC 9.5 4.8 - 10.8 K/[facility] LAB HEMETOLOGY METHOD 04/11/2025 6:[address] [facility] RBC 4.30 3.80 - 4.80 M/mcL LAB HEMETOLOGY METHOD 04/11/2025 6:[address] [facility] Hemoglobin 12.8 11.5 - 16.0 g/dL LAB HEMETOLOGY METHOD 04/11/2025 6:[address] [facility] Hematocrit 40.2 35.0 - 47.0 % LAB HEMETOLOGY METHOD 04/11/2025 6:[address] [facility] MCV 93.9 79.0 - 98.0 FL LAB [facility]EMETOLOGY [facility] MCH 29.9 27.0 - 32.0 pcg LAB HEMETOLOGY METHOD 04/[facility]25 [facility] MCHC 31.8(L) 32.0 - 37.0 g/dL LAB HEMETOLOGY METHOD 04/11/2025 6:[address] [facility] RDW 14.8 11.0 - 15.0 % LAB HEMETOLOGY METHOD [facility]/11[facility]2025 6[facility] Platelets 526(H) 130 - 400 K/mcL LAB HEMETOLOGY METHOD [facility]/11[facility]25 6[facility] MPV 9.5 7.0 - 11.0 FL LAB HEMETOLOGY METHOD 04/11/2025 6:[address] [facility] NRBC 0.0 <1.0 % LAB HEMETOLOGY METHOD [facility] NRBC Absolute 0.00 <0.10 K/mcL LAB HEMETOLOGY METHOD 04/11[facility]2025 6[facility] Neutrophils Relative 68.7 % LAB HEMETOLOGY METHOD 04/11/2025 6:[address] [facility] Lymphocytes Relative 25.8 % LAB HEMETOLOGY METHOD 04/11/2025 6:[address] [facility] Monocytes Relative 3.9 % LAB HEMETOLOGY METHOD 04/11/2025 6:27 PM [facility] Eosinophils Relative 0.1 % LAB HEMETOLOGY METHOD 04/11/2025 6:27 PM [facility] Basophils Relative 0.9 % LAB HEMETOLOGY METHOD 04/11/2025 6:27 PM [facility] Immature Granulocytes Relative 0.6 % LAB HEMETOLOGY METHOD 04/11/2025 6:27 PM [facility] Neutrophils Absolute 6.55 1.50 - 7.00 K/mcL LAB HEMETOLOGY METHOD 04/11/2025 6:27 PM [facility] Lymphocytes Absolute 2.46 1.00 - 5.00 K/mcL LAB HEMETOLOGY METHOD 04/11/2025 6:27 PM [facility] Monocytes Absolute 0.37 0.20 - 1.00 K/mcL LAB HEMETOLOGY METHOD 04/11/2025 6:27 PM [facility] Eosinophils Absolute 0.01 0.00 - 0.50 K/mcL LAB HEMETOLOGY METHOD 04/11/2025 6:27 PM [facility] Basophils Absolute 0.09 0.00 - 0.20 K/mcL LAB HEMETOLOGY METHOD 04/11/2025 6:27 PM [facility] Immature Granulocytes Absolute 0.06(H) 0.00 - 0.03 K/mcL LAB HEMETOLOGY METHOD 04/11/2025 6:27 PM [facility] Blood Venous blood specimen / Unknown Venipuncture / Unknown 04/11/2025 2:47 PM EDT 04/11/2025 2:47 PM EDT us Aysha Hernandez MD LAB BLOOD ORDERABLES Final Resul t [facility] [address] [place] [address], [place] [phone] * XR Foot 3+ Views bilat (04/04/2025 [...] Site: Foot ligament tendon us Diony Toledo DPLynn IN CLINIC/BEDSIDE ORDERAB LES Final Result * MG Mammo Digital Screening w Nemesio bilat (03/13/2025 10:57 AM EDT) Anatomical Region Laterality Modality Breast Bilateral Mammography 03/14/2025 11:2 3 AM EDT Impressions 03/14/2025 11:27 AM EDT Benign. BI-RADS CATEGORY: 1 - NEGATIVE RECOMMENDATION: Screening bilateral mammogram is recommended in 1 year. Mammo Location: [facility], [address] [place] [address], [id number], . -------- FINAL REPORT -------- Dictated By: Maya Garcia Dictated Date: 03/14/2025 11:23 ET Assigned Physician: Maya Garcia Reviewed and Electronically Signed By: Maya Garcia Signed Date: 03/14/2025 11:27 ET Workstation ID: [id number] Transcribed By: Self Edit Transcribed Date: 03/14/2025 [...] is recommended in 1 year. Mammo Location: [facility], [address] [place] [address], [id number], . -------- FINAL REPORT -------- Dictated By: Maya Garcia Dictated Date: 03/14/2025 11:23 ET Assigned Physician: Maya Garcia Reviewed and Electronically Signed By: Maya Garcia Signed Date: 03/14/2025 11:27 ET Workstation ID: [id number] Transcribed By: Self Edit Transcribed Date: 03/14/2025 11:23 ET Lex Rich MD IMG BI PROCEDURE S Final Result * Lipid panel with reflex to direct LDL (02/25/2025 9:14 AM EDT) Cholesterol 181 0 - 200 mg/dL LAB CHEMISTRY METHOD 02/25/2025 2:[address] [facility] Triglycerides 61 0 - 150 mg/dL LAB CHEMISTRY METHOD 02/25/2025 2:[address] [facility] HDL 72 >=40 mg/dL LAB CHEMISTRY METHOD 02/25/2025 2:[address] [facility] LDL Calculated 97 0 - 100 mg/dL LAB CHEMISTRY METHOD 02/25/2025 2:[address] [facility] VLDL Cholesterol Tamir 12.2 mg/dL LAB CHEMISTRY METHOD 02/25/2025 2:[address] [facility] Non HDL Chol. (LDL+VLDL) 109 <145 mg/dL LAB CHEMISTRY METHOD 02/25/2025 2:[address] [facility] Chol/HDL Ratio 2.5 0.0 - 4.4 LAB CHEMISTRY METHOD 02/25/2025 2:[address] [facility] Blood Venous blood specimen / Unknown Venipuncture / Unknown 02/25/2025 9:14 AM EDT 02/25/2025 9:14 AM EDT Lex Rich MD LAB BLOOD ORDERA BLES Final Result [facility] [address] [place] [address], [place] [phone] * Microalbumin creatinine urine ratio (02/25/2025 9:14 AM EDT) Creatinine, Urine 43.0 mg/dL LAB CHEMISTRY METHOD 02/25/2025 11:[address] [facility] Microalb, Ur <5.0 0.0 - 29.0 mg/L LAB CHEMISTRY METHOD 02/25/2025 11:[address] [facility] Microalb/Creat Ratio <12 <30 mg/g creat LAB CHEMISTRY METHOD 02/25/2025 11:[address] [facility] Urine Urine specimen obtained by clean catch procedure / Unknown Non-blood Collection / Unknown 02/25/2025 9:14 AM EDT 02/25/2025 9:14 AM EDT Lex Rich MD LAB URINE ORDERA BLES Final Result Performing Organization Address City/[facility]/ZIP Co de Phone Number [facility] [address] [place] [address], [place] [phone] * Hemoglobin A1c (02/25/2025 9:14 AM EDT) Hemoglobin A1C 5.9 <6.5 % LAB CHEMISTRY METHOD 02/25/2025 12:[address] [facility] Mean Bld Glu Estim. 123 mg/dL LAB CHEMISTRY METHOD 02/25/2025 12:22 PM [facility] Blood Venous blood specimen / Unknown Venipuncture / Unknown 02/25/2025 9:14 AM EDT 02/25/2025 9:14 AM EDT Lex Rich MD LAB BLOOD ORDERA BLES Final Result [facility] [address] [place] [address], * (ABNORMAL) Comprehensive metabolic panel (02/25/2025 9:14 AM EDT) Sodium 137 133 - 145 mmol/L LAB CHEMISTRY METHOD 02/25/2025 2:45 PM [facility] Potassium 5.0 3.5 - 5.5 mmol/L LAB CHEMISTRY METHOD 02/25/2025 2:45 PM [facility] Chloride 104 96 - 110 mmol/L LAB CHEMISTRY METHOD 02/25/2025 2:45 PM [facility] CO2 28 21 - 32 mmol/L LAB CHEMISTRY METHOD 02/25/2025 2:45 PM [facility] Anion Gap 5 3 - 11 LAB CHEMISTRY METHOD 02/25/2025 2:45 PM [facility] Glucose 120(H) 70 - 100 mg/dL LAB CHEMISTRY METHOD 02/25/2025 2:45 PM [facility] BUN 12 5 - 25 mg/dL LAB CHEMISTRY METHOD 02/25/2025 2:45 PM [facility] Creatinine 0.72 0.50 - 1.10 mg/dL LAB CHEMISTRY METHOD 02/25/2025 2:45 PM [facility] eGFR 97 >=60 mL/min/1. 73m2 LAB CHEMISTRY METHOD 02/25/2025 2:[address] [facility] Comment:Calculation based on the Chronic Kidney Disease Epidemiology Collaboration (CKD-EPI) equation refit without adjustment for race. BUN/Creatinine Ratio 16.7 LAB CHEMISTRY METHOD 02/25/2025 2:[address] [facility] Calcium 9.6 8.5 - 10.5 mg/dL LAB CHEMISTRY METHOD 02/25/2025 2:[address] [facility] AST (SGOT) 18 10 - 42 unit/L LAB CHEMISTRY METHOD 02/25/2025 2:45 PM [facility] ALT (SGPT) 37 10 - 60 unit/L LAB CHEMISTRY METHOD 02/25/2025 2:45 PM [facility] Alkaline Phosphatase 98 42 - 121 unit/L LAB CHEMISTRY METHOD 02/25/2025 2:[address] [facility] Total Protein 7.1 6.0 - 8.0 g/dL LAB CHEMISTRY METHOD 02/25/2025 2:[address] [facility] Albumin 3.2 3.2 - 5.0 g/dL LAB CHEMISTRY METHOD 02/25/2025 2:45 PM [facility] Total Bilirubin 0.3 0.0 - 1.4 mg/dL LAB CHEMISTRY METHOD 02/25/2025 2:[address] [facility] Blood Venous blood specimen / Unknown Venipuncture / Unknown 02/25/2025 9:14 AM EDT 02/25/2025 9:14 AM EDT us Lex Rich MD LAB BLOOD ORDERA BLES Final Result [facility] [address] [place] [address], * Hepatitis C antibody (07/12/2024 10:05 AM EST) [facility] Hepatitis C Antibody Negative Negative LAB CHEMISTRY METHOD 07/12/2024 1:27 PM EST [facility] Blood Venous blood specimen / Unknown Venipuncture / Unknown 07/12/2024 10:05 AM EST 07/12/2024 10:05 AM EST Lex Rich MD LAB BLOOD ORDERA BLES Final Result [facility] [address] [place] [address], [place] [phone] * Colonoscopy (09/21/2023) [facility] Colonoscopy no interpreta tion,abstr acted Anatomical Region Laterality Modality Other Historical Provider HEALTH MAINTENANCE Final Result from Last 3 Months or Most Recently Relevant to Health Maintenance Insurance [facility] MEDICARE Member Subscriber Plan / Payer (Ef fective 2022-Present) Name:MEHRAN ALEXANDRE Relation to Subscriber:Self Name:Mehran Alexandre Payer ID:[id number] Group ID:[id number] Type:Not on file Address: [place] [address] [address] [phone] Care Teams Gamb Cutter Relationship Specialty Start Date End Date Lex Rich MD [address] [place] [phone] PCP - General Internal Medicine 05/24/24
== END 2025-06-19 11:11 | disposition home or self-care (01) ==
LOC: HO.HSM 09:50
PROVIDERS: PCP Family Medicine; Visit Provider Nurse Practitioner
DX: G62.9 Polyneuropathy, unspecified (principal); M54.81 Occipital neuralgia; M25.511 Pain in right shoulder; M79.18 Myalgia, other site
CPT/HCPCS: 99215

== ENCOUNTER → 2025-06-19 09:49 | Outpatient (BNVA) | payer OTHER, SELFPAY | PROVIDERS: PCP Family Medicine; Visit Provider Nurse Practitioner | DX: G62.9 Polyneuropathy, unspecified (principal); M54.81 Occipital neuralgia; M25.511 Pain in right shoulder; M79.18 Myalgia, other site; Z79.899 Other long term (current) drug therapy | CPT/HCPCS: 99212 ==

== ENCOUNTER 2025-07-06 10:27 | Outpatient (REF) | payer OTHER, SELFPAY ==
--- OUTSIDE RECORDS SUMMARY | 2025-07-03 13:00 | XMS_ITS | Encounter Summary ---
Author Organization [facility] Address [address] [place] [address] Care Team Providers Care Algorithm Design Engineer Name Role Phone Lex Rich MD Primary Care Pr ovider Reason for Visit * Reason Comments Advice Only Thyroid * Consultation (Routine) - Authorized Specialty Diagnoses / Procedures Referred By Contac t Referred To Contact Endocrinology Diagnoses Localized osteoporosis without current pathological fracture Lex Rich MD [address] [place] [address] Phone: tel: fax: Endocrinology - [address] Phone: tel: fax: Referral ID Status Reason Start Date Expiration Date Visits Requested Visits Authorized [id number] Authorized Specialty Services Required 05/17/2026 1 1 Encounter Details Date Type Department Care Team (Late st Contact Info) Description 07/03/2025 1:00 PM EST Consult Endocrinology - [address] [phone] Melinda Lyle MD [address] [place] [address] Type 2 diabetes mellitus with diabetic microalbuminuria, without long-term current use of insulin (CMS/HCC V24, CMS/HCC V28) (Primary Dx); Localized osteoporosis without current pathological fracture; Subclinical hyperthyroidism Social History Tobacco Use Types Packs/Day Years [...] for your loved ones. For example, child adolescent care or elderly care for an older [...] PM EST documented as of this encounter Last Filed Vital Signs Vital Sign Reading Time Taken Comments Blood Pressure 101/69 07/03/2025 1:07 PM EST Pulse 97 07/03/2025 1:07 PM EST Temperature - - Respiratory Rate - - Oxygen Saturation - - Inhaled Oxygen Concentration - - Weight 55.3 kg (122 lb) 07/03/2025 1:07 PM EST Height - - Body Mass Index 23.83 05/31/2025 10:33 AM EST documented in this encounter Progress Notes * Melinda Lyle MD - 07/03/2025 1:00 PM EST 24 Hour urine collection instructions: If you are starting the urine collection on Tuesday, you will discard the first urine that you make when you wake up for the day on Tuesday. You will collect all of the urine that you make after (throughout the day and night). You must collect the first urine that you make when you wake up for the day on Tuesday. The container must be refrigerated in between collections. * Melinda Lyle MD - 07/03/2025 1:00 PM EST CHIEF COMPLAINT: Osteoporosis, type 2 diabetes mellitus IDENTIFIER: Patricia Alexandre is a 59 y.o. old female. HPI: 59-year-old female with past medical history of osteoporosis, polymyalgia rheumatica, interstitial lung disease, type 2 diabetes mellitus, subclinical hyperthyroidism, hyperlipidemia presents to the clinic today for initial evaluation of osteoporosis and type 2 diabetes mellitus. Patient is accompanied by her niece who provides translation and additional history. Osteoporosis history: Diagnosed in: 2024 Diagnosed via: DEXA Other relevant PMH: ILD, PMR, Type 2 DM Fracture history: none Menarche: 15y Menopause: hysterectomy in 44y Hormone replacement therapy: yes, for a few months Hx: , did not breastfeed Use of steroids: prednisone 2.5mg for about 1.5 year for ILD, stopped in 04/18 Proton pump inhibitors: No Antiepileptics: No Anticoagulants: No Anxiety or depression medication use: on mirtazapine Kidney stones: No History of cancer: No Chemotherapy: No Radiotherapy: No Dental history: no upcoming dental work Family history of osteoporosis or fractures: no Family History Breast cancer: no Recent Falls: 08/18, slipped and fell Height: 5ft Smoking: no Alcohol use: no Exercise: no Calcium Intake: takes supplements (not sure of dose), 2-3 servings of dairy per day Vitamin D intake: unsure of dose Bisphosphonate use: No Previous Osteoporosis medication (other than bisphosphonates): No Other pertinent medical history: No known history of rheumatological disease, thyroid disease, gastric bypass. Secondary causes of OP workup: Albumin Level Lab Results Component Value Date ALBUMIN 3.2 02/25/2025 Calcium Level Lab Results Component Value Date CALCIUM 9.6 02/25/2025 Calcium Urine 24 Hr No results found for: CALUVOL Collagen 1 C Telopeptide No results found for: CTELOPEPTIDE Creatinine Urine 24 Hr No results found for: [id number] Protein Electrophoresis No results found for: SPEPIFE PTH Intact No results found for: PTH Tissue Transglutaminase Ab IgA No results found for: TTGIGA Vitamin D 25 Hydroxy Level Lab Results Component Value Date CALCIDIOL 37.7 02/25/2025 DEXA: Results for orders placed during the hospital encounter of 05/10/25 BD Bone Density DXA Axial Skeleton Narrative BONE DENSITY (DEXA) Lumbar Spine T-score is -2.7. (SD relative to 20-29 y/o adult) Z-score is -1.4. (SD relative to age matched peers) This is considered osteoporosis by WHO criteria. Left Hip T-score is -1.9. Z-score is -0.8. This is considered osteopenia by WHO criteria. Lateral view of the spine demonstrates vertebral heights to be maintained. Patient also has a history of type 2 diabetes mellitus. She is currently not taking any medications for her diabetes. She also has not been monitoring her blood sugars at home. Last HbA1c from February 2025 was noted to be 5.9%. SH: Social History Tobacco Use Smoking status: Never Smokeless tobacco: Never Substance Use Topics Alcohol use: Not Currently Comment: rarely FH: Family Status Relation Name Status Mother Alive Father No partnership data on file Review of Systems: 12-point review of systems was performed and is negative except for as stated above Physical Exam GENERAL: Alert and oriented, in no acute distress. Well-nourished and well-hydrated. HEAD/NECK: Normocephalic and atraumatic. EYES: Pupils equal, round, and reactive to light (PERRLA). Extraocular movements intact. Conjunctivae clear. LUNGS: Lungs clear to auscultation bilaterally. No wheezes, rales, or rhonchi. CARDIOVASCULAR: Regular rate and rhythm. Normal S1 and S2 sounds. No murmurs or gallops. ABDOMEN: Soft, non-tender, and non-distended. Bowel sounds are active and normal. EXTREMITIES: No edema or deformities. Full range of motion in all joints. NEUROLOGICAL: Alert and oriented. Grossly nonfocal SKIN: Skin is warm, dry, and intact. IMPRESSION: 1. Type 2 diabetes mellitus with diabetic microalbuminuria, without long-term current use of insulin ([facility] V24, [facility] V28) 2. Localized osteoporosis without current pathological fracture 3. Subclinical hyperthyroidism 59-year-old female with past medical history of osteoporosis, type 2 diabetes mellitus, PMR, ILD presents to the clinic today for initial evaluation. Risk factors for osteoporosis include postmenopausal age, exposure to steroids, history of subclinical hyperthyroidism. Her lowest T-score is -2.7 in lumbar spine. I will perform evaluation for secondary causes of osteoporosis. If all secondary causes come back negative, she would be a candidate for pharmacologic therapy for osteoporosis. I also reiterated importance of optimizing calcium/Vitamin D intake and weight bearing physical activity. Regarding her type 2 diabetes mellitus, patient reports that she has highly variable blood sugars. She is not currently taking medications for her diabetes. She has also not been monitoring her blood sugars at home. Instructed patient to monitor her blood sugars at least once daily going forward. I will have her follow-up with me in 4 weeks to review results of all testing and talk about pharmacologic therapy in detail. Melinda Lyle MD Endocrinology, Diabetes, and Metabolism documented in this encounter Plan of Treatment Upcoming Encounters Date Type Department Care Team (Late st Contact Info) Description 07/15/2025 9:00 AM EST Office Visit Pulmonology - [place] 175 [facility] [address] [place] [phone] Aysha Hernandez MD [address] [place] [phone] 08/01/2025 11:40 AM EST Office Visit Endocrinology - [place] [address] [place] [address] Melinda Lyle MD [address] [place] [address] 08/02/2025 1:00 PM EST Consult [facility] for [place] - [place] 175 [facility] [address] [place] [phone] Arpita Willis PA [address] [place] [phone] 08/06/2025 10:15 AM EST Office Visit Orthopedic Surgery - [place] 250 175 [facility] [address] [place] [phone] Diony Toledo, DPM 175 [facility] [address] [place] [phone] 08/28/2025 1:00 PM EST Office Visit Gastroenterology - [address] [place] [address] [phone] Godfrey Claros MD [address] [address] 09/12/2025 12:30 PM EST Office Visit [address] [phone] Lex Rich MD [address] [place] [address] Pending Results Name Type Priority Associated Diagnoses Date /Time Collagen type 1, c-telopeptide Lab Routine Localized osteoporosis without current pathological fracture 07/05/2025 9:54 AM EST Tissue transglutaminase, IgA Lab Routine Localized osteoporosis without current pathological fracture 07/05/2025 9:54 AM EST Protein electrophoresis, serum Lab Routine Localized osteoporosis without current pathological fracture 07/05/2025 9:54 AM EST Scheduled Orders Name Type Priority Associated Diagnoses Orde r Schedule Collagen type 1, c-telopeptide Lab Routine Localized osteoporosis without current pathological fracture 1 Occurrences starting 07/03/2025 until 07/03/2026 Tissue transglutaminase, IgA Lab Routine Localized osteoporosis without current pathological fracture 1 Occurrences starting 07/03/2025 until 07/03/2026 Protein electrophoresis, serum Lab Routine Localized osteoporosis without current pathological fracture 1 Occurrences starting 07/03/2025 until 07/03/2026 documented as of this encounter Results * Parathyroid hormone intact (07/05/2025 9:54 AM EST) PTH 69.9 18.5 - 88.0 pcg/mL 07/05/2025 1:06 PM EST [facility] Blood Venous blood specimen / Unknown Venipuncture / Unknown 07/05/2025 9:54 AM EST 07/05/2025 9:54 AM EST Melinda Lyle MD LAB BLOOD ORDERABLES Final Result [facility] [address] [place] [address], * Thyroxine free (07/05/2025 9:54 AM EST) Free T4 1.25 0.70 - 1.80 ng/dL 07/05/2025 1:15 PM [facility] Blood Venous blood specimen / Unknown Venipuncture / Unknown 07/05/2025 9:54 AM EST 07/05/2025 9:54 AM EST Melinda Lyle MD LAB BLOOD ORDERABLES Final Result [facility] [address] [place] [address], * Thyroid stimulating hormone (07/05/2025 9:54 AM EST) Pathologist [facility] TSH 1.33 0.40 - 4.00 mcIU/mL 07/05/2025 1:10 PM [facility] Blood Venous blood specimen / Unknown Venipuncture / Unknown 07/05/2025 9:54 AM EST 07/05/2025 9:54 AM EST Melinda Lyle MD LAB BLOOD ORDERABLES Final Result [facility] [address] [place] [address], * (ABNORMAL) Creatinine, urine, 24H (07/05/2025 9:39 AM EST) Creatinine, Urine 38.0 mg/dL 07/05/2025 12:54 PM [facility] Creatinine, 24H Ur 418(L) 600 - 1,800 mg/24 Hr 07/05/2025 12:54 PM [facility] Urine Volume 1,100 mL 07/05/2025 12:54 PM [facility] Collection Interval, Ur 24 hr 07/05/2025 12:54 PM [facility] Urine Urine specimen from urethra / Unknown Non-blood Collection / Unknown 07/05/2025 9:39 AM EST 07/05/2025 9:39 AM EST Melinda Lyle MD LAB URINE ORDERABLES Final Result [facility] [address] [place] [address], [place] [phone] * Calcium, urine, 24H (07/05/2025 9:39 AM EST) Calcium, Ur 5.0 mg/dL 07/05/2025 12:54 PM [facility] Calcium, 24H Urine 55 10 - 300 mg/24 hr 07/05/2025 12:54 PM [facility] Urine Volume 1,100 mL 07/05/2025 12:54 PM [facility] Collection Interval, Ur 24 hr 07/05/2025 12:54 PM [facility] Urine Urine specimen from urethra / Unknown Non-blood Collection / Unknown 07/05/2025 9:39 AM EST 07/05/2025 9:39 AM EST Melinda Lyle MD LAB URINE ORDERABLES Final Result [facility] [address] [place] [address], [place] [phone] documented in this encounter Visit Diagnoses Diagnosis Type 2 diabetes mellitus with diabetic microalbuminuria, without long-term current use of insulin ([facility] V24, [facility] V28)- Primary Localized osteoporosis without current pathological fracture Subclinical hyperthyroidism Thyrotoxicosis without mention of goiter or other cause, without mention of thyrotoxic crisis or storm documented in this encounter Orders Outpatient Referral Count Last Ordered Date Fir st Ordered Date AMB REFERRAL TO ENDOCRINOLOGY 1 07/03/2025 documented in this encounter Additional Health Concerns Assessment Noted Time PHQ-9 Depression Total Score: 0 10/19/19 25 8:17 AM EDT documented as of this encounter Care Teams Algorithm Design Engineer Relationship Specialty Start Date End Date Lex Rich MD [address] [place] [phone] PCP - General Internal Medicine 05/24/24 documented as of this encounter
--- OUTSIDE RECORDS SUMMARY | 2025-07-05 09:35 | XMS_ITS | Encounter Summary ---
Author Organization [facility] Address [address] [place] [address] Care Team Providers Care Crushing Foreman Name Role Phone Lex Rich MD Primary Care Pr ovider Encounter Details Date Type Department Care Team ([facility] st Contact Info) Description 07/05/2025 9:35 AM [facility] Draw Station [address] [phone] Localized osteoporosis without current pathological fracture Social History Tobacco Use Types Packs/Day Years [...] for your loved ones. For example, children's librarian or elderly care for an older adult? [...] 9:00 AM EST Office Visit Pulmonology - [address] [place] [address] Aysha Hernandez MD [address] [place] [address] 08/01/2025 11:40 AM EST Office Visit Endocrinology [address] [phone] Melinda Lyle MD [address] [place] [address] 08/02/2025 1:00 PM EST Consult [facility] 175 [facility] 150 [place] [phone] Arpita Willis, CHANDNI [address] [place] [address] 08/06/2025 10:15 AM EST Office Visit Orthopedic Surgery [facility] 250 175 [facility] 250 [place] [phone] iDony Toledo, DPM [address] [phone] 08/28/2025 1:00 PM EST Office Visit Gastroenterology - [address] [place] [address] 299 [facility] [address] [place] [address] Godfrey Claros MD 299 [facility] [address] [place] [address] 09/12/2025 12:30 PM EST Office Visit Adult Medicine [address] [phone] Lex Rich MD [address] [place] [address] Pending Results Name Type Priority Associated Diagnoses Date /Time Protein electrophoresis, serum Lab Routine Localized osteoporosis without current pathological fracture 07/05/2025 9:54 AM EST Tissue transglutaminase, IgA Lab Routine Localized osteoporosis without current pathological fracture 07/05/2025 9:54 AM EST Collagen type 1, c-telopeptide Lab Routine Localized osteoporosis without current pathological fracture 07/05/2025 9:54 AM EST documented as of this encounter Procedures Procedure Name Priority Date/Time Associated Diagnosis Comments THYROID STIMULATING HORMONE Routine 07/05/2025 9:54 AM EST Localized osteoporosis without current pathological fracture THYROXINE FREE Routine 07/05/2025 9:54 AM EST Localized osteoporosis without current pathological fracture PROTEIN, TOTAL Routine 07/05/2025 9:54 AM EST Localized osteoporosis without current pathological fracture PARATHYROID HORMONE INTACT Routine 07/05/2025 9:54 AM EST Localized osteoporosis without current pathological fracture CALCIUM, URINE, 24H Routine 07/05/2025 9 :39 AM EST Localized osteoporosis without current pathological fracture CREATININE, URINE, 24H Routine 07/05/2025 9:39 AM EST Localized osteoporosis without current pathological fracture documented in this encounter Results * Protein, total (07/05/2025 9:54 AM EST) Total Protein 7.6 6.0 - 8.0 g/dL 07/05/2025 12:56 PM EST [facility] Blood Venous blood specimen / Unknown Venipuncture / Unknown 07/05/2025 9:54 AM EST 07/05/2025 9:54 AM EST Melinda Lyle MD LAB BLOOD ORDERABLES Final Result [facility] [address] [place] [address], * Thyroid stimulating hormone (07/05/2025 9:54 AM EST) TSH 1.33 0.40 - 4.00 mcIU/mL 07/05/2025 1:10 PM EST [facility] Blood Venous blood specimen / Unknown Venipuncture / Unknown 07/05/2025 9:54 AM EST 07/05/2025 9:54 AM EST Melinda Lyle MD LAB BLOOD ORDERABLES Final Result Performing Organization Address City/[facility]/ZIP Co de Phone Number [facility] [address] [place] [address], [place] [phone] * Thyroxine free (07/05/2025 9:54 AM EST) Free T4 1.25 0.70 - 1.80 ng/dL 07/05/2025 1:15 PM EST [facility] Blood Venous blood specimen / Unknown Venipuncture / Unknown 07/05/2025 9:54 AM EST 07/05/2025 9:54 AM EST Melinda Lyle MD LAB BLOOD ORDERABLES Final Result Performing Organization Address [facility] Co de Phone Number [facility] [address] [place] [address], [place] [phone] * Parathyroid hormone intact (07/05/2025 9:54 AM EST) PTH 69.9 18.5 - 88.0 pcg/mL 07/05/2025 1:06 PM [facility] Blood Venous blood specimen / Unknown Venipuncture / Unknown 07/05/2025 9:54 AM EST 07/05/2025 9:54 AM EST Melinda Lyle MD LAB BLOOD ORDERABLES Final Result Performing Organization Address City/[facility]/ZIP Co de Phone Number [facility] [address] [place] [address], [place] [phone] * Calcium, urine, 24H (07/05/2025 9:39 AM EST) Calcium, Ur 5.0 mg/dL 07/05/2025 12:54 PM EST [facility] Calcium, 24H Urine 55 10 - 300 mg/24 hr 07/05/2025 12:54 PM [facility] Urine Volume 1,100 mL 07/05/2025 12:54 PM [facility] Collection Interval, Ur 24 hr 07/05/2025 12:54 PM [facility] Urine Urine specimen from urethra / Unknown Non-blood Collection / Unknown 07/05/2025 9:39 AM EST 07/05/2025 9:39 AM EST us Melinda Lyle MD LAB URINE ORDERABLES Final Result [facility] [address] [place] [address], [place] [phone] * (ABNORMAL) Creatinine, urine, 24H (07/05/2025 9:39 AM EST) Creatinine, Urine 38.0 mg/dL 07/05/2025 12:54 PM [facility] Creatinine, 24H Ur 418(L) 600 - 1,800 mg/24 Hr 07/05/2025 12:54 PM [facility] Urine Volume 1,100 mL 07/05/2025 12:54 PM [facility] Collection Interval, Ur 24 hr 07/05/2025 12:54 PM [facility] Urine Urine specimen from urethra / Unknown Non-blood Collection / Unknown 07/05/2025 9:39 AM EST 07/05/2025 9:39 AM EST us Melinda Lyle MD LAB URINE ORDERABLES Final Result Performing Organization Address [facility]/State/ZIP Co de Phone Number [facility] [address] [place] [address], [place] [phone] documented in this encounter Visit Diagnoses Diagnosis Localized osteoporosis without current pathological fracture documented in this encounter Additional Health Concerns Assessment Noted Time PHQ-9 Depression Total Score: 0 10/19/19 25 8:17 AM EDT documented as of this encounter Care Teams Crushing Foreman Relationship Specialty Start Date End Date Lex Rich MD [address] [place] [phone] PCP - General Internal Medicine 05/24/24 documented as of this encounter
--- NOTE | ~2025-07-06 | MR_ITS ---
CLINICAL HISTORY: R29.898 - Other symptoms and signs involving the musculoskeletal system --- Additional Notes or Special Instructions: bilateral lower back pain failed >6 weeks conservative treatment Exam: Unenhanced MRI lumbar spine. Comparison: None. Findings: Lumbar vertebral body heights, alignment, and signal intensities are well-maintained. Intervertebral disc heights are well-maintained. Conus medullaris terminates near T12-L1 level. Axial images reveal the following: L1-2: No focal disc herniation, spinal or foraminal compromise. L2-3: No focal disc herniation, spinal or foraminal compromise. L3-4: No focal disc herniation, spinal or foraminal compromise. L4-5: No focal disc herniation, spinal or foraminal compromise. L5-S1: No focal disc herniation, spinal or foraminal compromise. Impression: 1. Unremarkable appearing MRI of the lumbar spine. This document has been electronically signed by: Perry Cantu MD on 07/08/2025 15:18:05
--- OUTSIDE RECORDS SUMMARY | 2025-07-06 10:31 | XMS_ITS | Clinical Summary ---
Author Organization [facility] Address [address] [address] Phone Care Team Providers Care Product Mgmt Dev Manager Name Role Phone Lex Rich MD [...] incisional pain. Directed to follow-up with her children's lunchroom supervisor Dr. Hernandez in regards to her pulmonary [...] Medical Devices Not on file Insurance . [address] [place] [address] CARE MEDICARE REPLACEMENT [address] [place] [id number] [facility] CARE MEDICARE REPLACEMENT MEDICARE REPLACEMENT MEDICARE REPLACEMENT MEDICARE REPLACEMENT , [facility] [address] [address] [facility] ONE CARE MEDICARE REPLACEMENT CHANDNI SHERMAN [facility] Care Teams Product Mgmt Dev Manager Relationship Specialty Start Date End Date Lex Rich MD PCP - General Family Medicine 02/20/24 Additional Source Comments The information contained in this document represents components of the legal health record. It is not the complete legal health record.[facility]
--- OUTSIDE RECORDS SUMMARY | 2025-07-06 10:31 | XMS_ITS | Encounter Summary ---
Author Organization [facility] Address [address] [place] [address] Care Team Providers Care Heavy Equipment Sales Associate Name Role Phone Lex Rich MD Primary Care Pr ovider Reason for Referral * Consultation (Routine) - Authorized Specialty Diagnoses / Procedures Referred By Contac t Referred To Contact Endocrinology Diagnoses Localized osteoporosis without current pathological fracture Lex Rich MD [address] [place] [address] Phone: tel: fax: [address] Phone: tel: fax: Referral ID Status Reason Start Date Expiration Date Visits Requested Visits Authorized [id number] Authorized Specialty Services Required 05/17/2026 1 1 Encounter Details Date Type Department Care Team (Late st Contact Info) Description 05/16/2025 Results Follow-Up Adult Medicine [address] [phone] Christianne Vidales PA [address] [place] [phone] Social History Tobacco Use Types Packs/Day Years [...] care for your loved ones. For example, childbirth educator or elderly care for an older [...] 9:00 AM EST Office Visit Pulmonology - [place] 175 [facility] 200 [place] [phone] Aysha Hernandez MD 230 [place] [phone] 08/01/2025 11:40 AM EST Office Visit Endocrinology - [place] [address] [place] [address] Mleinda Lyle MD 444 [place] [address] 08/02/2025 1:00 PM EST Consult [facility] [place] - [place] 175 [facility] 150 [place] [phone] Arpita Willis PA 230 [place] [phone] 08/06/2025 10:15 AM EST Office Visit Orthopedic Surgery [facility] 250 175 [facility] 250 [place] [address] Diony Toledo, DPM 175 [facility] 250 [place] [phone] 08/28/2025 1:00 PM EST Office Visit Gastroenterology - [place] 299 [facility] [address] [place] [address] Godfrey Claros MD 299 [facility] 419 [place] [address] 09/12/2025 12:30 PM EST Office Visit Adult Medicine [facility] [address] [place] [address] Lex Rich MD [address] [place] [address] Scheduled Referrals Name Type Priority Associated Diagnoses [...] documented as of this encounter Care Teams Heavy Equipment Sales Associate Relationship Specialty Start Date End Date Lex Rich MD [address] [place] [address] PCP - General Internal Medicine 05/24/24 documented as of this encounter
--- OUTSIDE RECORDS SUMMARY | 2025-07-06 10:32 | XMS_ITS | Data Portability ---
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 [id number] 03 Active 2024 Not Available [facility] 13:30:08 Fall Active 2024 Not Available [facility] 13:31:11 Anxiety disorder 460531767 Active 2024 Not Available [facility] 16:50:45 Depressive disorder 62981222 Active 2024 Not Available [facility] 5 11:58:52 Abnormal Active 2024 Not Available [facility] 5 12:00:40 Muscle weakness 63548915 Active 2024 Not Available [facility] 5 11:10:39 Incoordina tion 085498177 Active 2024 Not Available [facility] 5 11:10:40 Difficulty walking 182922526 Active 2024 Not Available [facility] 5 11:11:53 Polymyalgi a rheumatica 47025463 Active 2024 Not Available [facility] 5 13:29:03 History of fall 350614869 Active 2024 DANIELLE QUEZADA CNP [address], [place], [address] , [facility] 5 13:02:11 Coronary arterioscl erosis 27593248 Active 2024 DANIELLE QUEZADA CNP [address], [address], [place], [address] , [facility] 5 13:02:14 Idiopathic pulmonary fibrosis 880626352 Active 2024 DANIELLE QUEZADA CNP [address], [address], [place], [address] , [facility] 5 13:02:17 Insomnia 160989961 Active 2024 DANIELLE QUEZADA CNP [address], [address], [place], [address] , [facility] 5 13:02:19 Mixed anxiety and depressive disorder 732532683 Active 2024 DANIELLE QUEZADA CNP [address], [address], [place], [address] , [facility] 5 13:02:20 Hyperglyce deven 22615975 Active 2024 DANIELLE QUEZADA CNP [address], [address], [place], [address] , [place] [facility] 5 13:02:24 Hyperlipid emia 22796386 Active 2024 DANIELLE QUEZADA, ROOM COOLER INSTALLER [address] [facility], [address], [place], [address] , [place] [facility] 13:02:26 Problem Notes None recorded. Medical [...] Address Organization Details Last Updated DateTime 5 93767.6 3 g 96 /min 18 /min 98.2 [degF] 96 % 122/79 mm[Hg] DANIELLE QUEZADA, ROOM COOLER INSTALLER [address] [facility], [address], [place], [address], [place] [facility] 5 12:08:32 Date Recorded Body weight Body mass index (BMI) Body height Heart rate Respiratory rate Body temperature Oxygen saturation Systolic And Diastolic Provider Name and Address Organization Details Last Updated DateTime 5 09727 g 26.6 kg/m2 152.4 cm 104 /min 16 /min 97.7 [degF] 97 % 118/72 mm[Hg] Harper Rosales MD [address] [facility], [address], [place], [address], [facility] 5 15:05:33 Date Recorded Body height Heart rate Respiratory rate Body temperature Oxygen saturation Systolic And Diastolic Provider Name and Address Organization Details Last Updated DateTime 5 152.4 cm 96 /min 18 /min 98 [degF] 98 % 118/72 mm[Hg] YARA CABALLERO [address] [facility], [address], [place], [address], [facility] 5 19:41:13 Date Recorded Body height Body mass index (BMI) Body weight Heart rate Respiratory rate Body temperature Oxygen saturation Systolic And Diastolic Provider Name and Address Organization Details Last Updated DateTime 5 152.4 cm 26.5 kg/m2 86050.4 8 g 83 /min 18 /min 97.6 [degF] 95 % 126/69 mm[Hg] YARA CABALLERO [address] [facility], [address], [place], [address], [facility] 5 11:10:53 Social History Question Answer Notes LastModified by Organizat ion Details LastModified Time Tobacco Smoking Status Never Smoker DANIELLE QUEZADA CNP [address] [facility], [facility] [address], [place], [address], [facility] 09/27/2024 11:20:38 Do You Have An Advance Directive? Yes Information not available 10/02/2024 What Is Your Code Status? DNI No G-tube Information not available 09/27/2024 Where Do You Live? Apartment Lives Alone, 3rd Floor, No Elevator. Information not available 10/02/2024 Legal Guardian? No Informati on not available 10/02/2024 Do You Have A Medical Power Of Map Drafter? Yes Information not available 10/02/2024 What Was [...] use any illicit or recreational drugs? No [facility] Information not available 09/27/2024 Do you or have you ever used any other forms of tobacco or nicotine? No Information not available 09/27/2024 What is your level of alcohol consumption? None [facility] Information not available 09/27/2024 Mental Status None recorded. Family History Relationship Description Onset Age of this Age Resolved Age Notes LastModified by Organization Details LastModified Time Mother [facility]pertensive [facility] Not available 2024 13:16:46 Sister Hypertensive disorder [facility] Not available 2024 13:16:46 Father Myocardial infarction Not available 09/27 13:17:03 Medical History No medical history recorded. Gynecological HistoryNo gynecological history recorded. Obstetrics History GPAL:G 0 P 0 0 0 0 Immunizations Vaccine Type Date Status Note Provider Nam e and Address Organization Details Recorded Time Tdap 04/19/2023 completed [facility] 09/27/2024 13:01:36 influenza, unspecified formulation 04/19/2023 completed [facility] 09/27/2024 13:01:50 Past Encounters Encounter ID Performer Location Encounter Start Date Encounter Closed Date Diagnosis/Indication Diagnosis SNOMED-CT Code Diagnosis ICD10 Code Diagnosis IMO Codes Diagnosis Note [id number] DANIELLE QUEZADA, REINA REDSTONE [address] [place] [address] 09/27/2024 10:45:11 10/02/2024 13:55:38 Polymyalgia rheumatica 71152421 M35.3 Flare up with bilateral lower extremity weakness and inability to walk.ESR and CPR significan tly elevated.X -rays left hip after fall negative.T karen Booneu-medbianka l IV. Currently is on prednisone taper.15 mg daily for 2 weeks, then wean 2.5 mg q 2 weekly.Pravene lofen 10 mg TID for pain.Will tray gabapentin 100 mg TID for joint burning pain.Yary nue monitor the pain and effectiven ess, and needs to wean off as able. Will recheck ESR, CRP as needed if patient has s/s of flare up. History of fall 79235949 9 Z91.81 S/t PMR flare up and weakness.P T and OT for strength, gait training and safety.Mor se screen on 09/27/24, scored high risk. Idiopathic pulmonary fibrosis 072387842 J84.112 OFev 150 mg BID.Contin ue monitor. Insomnia 442136190 G47.0 0 Prazosin 1 mg qHS.Trazod one 100 mg qHS.Stable , continue monitor. Coronary arteriosclerosis 94407289 I25.10 Isosorbide mononitrat e 30 mg ER daily.Resu me aspirin 81 mg daily.VSS, continue to monitor. Mixed anxi ety and depressive disorder 755206600 F41.8 Buspirone 7.5 BID.Mood is stable, continue monitor.Ps y therapy PRN Hyperglycemia 98783627 R 73.9 Likely due to steroid.Gl ucose stable, will continue monitor. Hyperlipidemia 02021555 E78.5 Continue atorvastat in 40 mg daily. [id number] Harper Rosales MD [facility] [address] [place] [address] 10/02/2024 13:38:53 10/04/2024 11:04:53 Polymyalgia rheumatica 82747941 M35.3 Per inpt notes, not completely c/w [...] with rheum as planned. History of fall 55488637 9 Z91.81 PT/OT as above.Hali tor for safety. Coronary arteriosclerosis 04132722 I25.10 No recent sxs.Contin ue isosorbide mononitrat e 30 mg ER qd, ASA 81 mg qd and atorvastat in 40 mg qd.Monitor for cardio sxs.F/U with cardio as planned. Idiopathic pulmonary fibrosis 531057227 J84.112 Continue Ofev 150 mg BID.Monito r resp status.F/U with pulmonary as planned. Insomnia 308943086 G47.0 0 Meds as above,Hali tor sleep patterns. Mixed anxi ety and depressive disorder 509520928 F41.8 F32.89 Mood good today.Cont inue buspirone 7.5 BID, prazosin 1 mg qhs and trazadone 100 mg qhs.Mood is stable, continue monitor.Ps y therapy PRN Hyperglycemia 91383394 R 73.09 Glucose only mildly elevated here.With HgA1C of 6.4 inpt.Likel y due to steroids.C ontinue to encourage healthy eating.Mon itor as outpt. Hyperlipidemia 85723624 E78.49 Continue atorvastat in 40 mg qdMonitor labs as outpt. [id number] [place] [address] 10/05/2024 18:12:50 10/11/2024 15:02:23 Polymyalgia rheumatica 06514956 M35.3 continues with burning pain in finger joint and legswill increase gabapentin to 300 mg TIDCurrent ly is on prednisone taper.15 mg daily for 2 weeks, then wean 2.5 mg q 2 weekly.Praveen lofen 10 mg TID for pain.Yary nue monitor the pain and effectiven ess, [id number] [place] [address] 10/12/2024 10:28:50 10/16/2024 10:09:49 Polymyalgia rheumatica 97740784 M35.3 polymyalgi a rheumatica -Per inpt notes, [...] with PCP as planned History of fall 71343437 9 Z91.81 Monitor for safety. Coronary arteriosclerosis 51308176 I25.10 Continue isosorbide mononitrat e 30 mg ER qd, ASA 81 mg qd and atorvastat in 40 mg qd.Monitor for cardio sxs.F/U with cardio as planned. Idiopathic pulmonary fibrosis 974239483 J84.112 Continue Ofev 150 mg BID.Monito r resp status.F/U with pulmonary as planned. Mixed anxi ety and depressive disorder 936083210 F41.8 F32.89 Continue buspirone 7.5 BID, prazosin 1 mg qhs and trazadone 100 mg qhs. Insomnia 467422583 G47.0 0 Meds as above, Hyperglycemia 28778609 R 73.09 Glucose only mildly elevatedWi th HgA1C of 6.4 inpt.Likel y due to steroids.C ontinue to encourage healthy eating.Mon itor as outpt. Hyperlipidemia 16542143 E78.49 Continue atorvastat in 40 mg qdMonitor [...] [facility] - DOS ON OR AFTER 2022 - MEDICARE ADVANTAGE [place] (MEDICARE REPLACEMENT/ADV ANTAGE - PPO) Patricia Alexandre [id number] Patricia Alexandre Notes Date Note Type Note Provider Name and Address Organization Details Recorded Time 09/27/2024 text/html Patricia is 58 y/o a Slovenian-speaking female admitted to [facility] on 09/26/24 from [facility]. PMH significant for Polymyalgia rheumatica, positive MADY, and RF, idiopathic pulmonary fibrosis, CAD, HLD and depression. Pt presented to [facility] ER on 09/23/24 due to increase increased [...] on 09/27/24, scored high risk. DANIELLE QUEZADA, ROOM COOLER INSTALLER [address] [facility], [address], [place], [address], [facility] 09/27/2024 15:11:28 10/02/2024 text/html This is a 58 yo woman who is here for rehab after an acute hospitalization for a severe PMR flare causing inability to walk.She also has mod/severe ILD at baseline causing chronic SOB and asthenia. She presented to the [facility] ED on 09/23 due to increasing leg pain and weakness.She had been inpt at [facility] 07/31-08/07 for similar sxs and was txed with solumedrol and then put on prednisone taper. She had been doing well at home until about a week [employer] when her left leg gave out and [...] gabapentin on 09/27.I see her with a malay speaking staff member.She tells me burning pain is a little better, but still bad.No other c/o. Her PMH includes PMR with + MADY and RF, idiopathic pulmonary fibrosis, CAD, elevated blood sugars when on prednisone (HgA1C 6.4), HLD and insomnia, anxiety/depression. Harper Rosales MD [address] [facility], [address], [place], [address], [facility] 10/02/2024 22:44:50 10/05/2024 text/html ROS as [...] continues to be bothersome. YARA CABALLERO [address] [facility], [address], [place], [address], [facility] 10/10/2024 19:41:49 10/12/2024 text/html Discharge Summary Summarized from H&P This is a 58 yo woman with a PMH includes PMR with + MADY and RF, idiopathic pulmonary fibrosis, CAD, elevated blood sugars when on prednisone (HgA1C 6.4), HLD and insomnia, anxiety/depression. [facility] an acute hospitalization for a severe PMR flare causing inability to walk.She also has mod/severe ILD at baseline causing chronic SOB and asthenia. She presented to the [facility] ED on 09/23 due to increasing leg pain and weakness.She was admitted due to being unable to bear wt on legs due to pain.She was txed with solumedrol and then transitioned to po prednisone to do a prolonged taper. She had been inpt at [facility] 07/31-08/07 for similar sxs and was txed [...] and VNA with services. YARA CABALLERO [address] [facility], [address], [place], [address], [facility] 10/12/2024 11:43:33 OBGyn Episode No OBEpisode recorded.
--- OUTSIDE RECORDS SUMMARY | 2025-07-06 10:32 | XMS_ITS | Encounter Summary ---
Author Organization [facility] Address [address] [place] [address] Care Team Providers Care Home Economics Teacher Name Role Phone Lex Rich MD Primary Care Pr ovider Encounter Details Date Type Department Care Team (Late st Contact Info) Description 02/26/2025 Lab Requisition [facility] - Main Lab [address] [place] [address] Susanne Cohen MD [address] [place] [phone] Pulmonary fibrosis, unspecified (CMS/HCC V24, CMS/HCC V28) [...] your loved ones. For example, child care attendant school or elderly care for an older adult? [...] 9:00 AM EST Office Visit Pulmonology - [address] [place] [address] Aysha Hernandez MD [address] [place] [phone] 08/01/2025 11:40 AM EST Office Visit [address] [phone] Melinda Lyle MD [address] [place] [address] 08/02/2025 1:00 PM EST Consult - [place] [address] [facility] 150 [place] [address] Arpita Willis PA [address] [place] [phone] 08/06/2025 10:15 AM EST Office Visit Orthopedic Surgery [facility] 250 [address] [facility] 250 [place] [phone] Diony Toledo, DPM [address] [phone] 08/28/2025 1:00 PM EST Office Visit Gastroenterology - [address] [facility] 299 [facility] 419 [place] [address] Godfrey Claros MD [address] [facility] 419 [place] [address] 09/12/2025 12:30 PM EST Office Visit Adult Medicine [address] [phone] Lex Rich MD [address] [place] [address] documented as of this encounter Procedures Procedure Name Priority Date/Time Associated Diagnosis Comments HISTORICAL SURGICAL PATHOLOGY CASE Routine 02/26/2025 1:00 PM EDT Pulmonary fibrosis, unspecified (CMS/HCC V24, CMS/HCC V28) documented in this encounter Results * Historical Pathology Case (02/26/2025 1:00 PM EDT) Final Diagnosis This case was created to document slides being sent to [facility] from a historical case accessioned in our prior laboratory information system. The report is available upon request. No additional diagnosis is rendered by this institution at this time. 05/08/2025 11:19 AM EDT EXTERNAL LAB (NON-INTERFAC ED) at 1119 EDT Clinical Information Historical case created for requests for materials from outside institutions. 05/08/2025 11:19 AM EDT [facility] Gross Description A. Lung, Right Upper Lobe, : [id number] Whole case (5) sent JS/KK 05/08/2025 11:19 AM EDT [facility] Disclaimer Unless otherwise specified, all tissue is 10% NB formalin fixed and paraffin embedded. 05/08/2025 11:19 AM EDT [facility] Tissue Structure of upper lobe of right lung / Unknown 02/26/2025 1:00 PM EDT 02/26/2025 1:00 PM EDT us Susanne Cohen MD LAB PATHOLOGY ORDERABLES Final R esult EXTERNAL LAB (NON-INTERFACED) [facility] [address] [place] [address], documented in this encounter Visit Diagnoses Diagnosis Pulmonary fibrosis, unspecified (CMS/HCC V24, CMS/HCC V28) documented in this encounter Additional Health Concerns Assessment Noted Time PHQ-9 Depression Total Score: 0 10/19/19 25 8:17 AM EDT documented as of this encounter Care Teams Home Economics Teacher Relationship Specialty Start Date End Date Lex Rich MD [address] [place] [phone] PCP - General Internal Medicine 05/24/24 documented as of this encounter
--- OUTSIDE RECORDS SUMMARY | 2025-07-06 10:32 | XMS_ITS | Encounter Summary ---
Author Organization [facility] Address [address] [place] [address] Care Team Providers Care Rehabilitation Therapy Technician Name Role Phone Lex Rich MD Primary Care Pr ovider Encounter Details Date Type Department Care Team (Late Contact Info) Description 10/07/2024 Lab Requisition [facility] - Main Lab [address] [facility] [place] [address] Mainor Crawford MD [address] [facility] 204 [place], [address] Polymyalgia rheumatica (CMS/HCC V24) Social History [...] Department Care Team (Late Contact Info) Description 07/15/2025 9:00 AM EST Office Visit Pulmonology - [place] [address] [facility] [address] [place] [address] Aysha Heranndez MD [address] [place] [address] 08/01/2025 11:40 AM EST Office Visit Endocrinology [address] [phone] Melinda Lyle MD [address] [place] [address] 08/02/2025 1:00 PM EST Consult [facility] [place] - [place] [address] [facility] 150 [place] [phone] Arpita Willis, CHANDIN [address] [place] [phone] 08/06/2025 10:15 AM EST Office Visit Orthopedic Surgery [facility] 250 [address] [facility] 250 [place] [phone] Diony Toledo, DPM 175 [facility] 250 [place] [phone] 08/28/2025 1:00 PM EST Office Visit Gastroenterology - [address] [facility] 299 [facility] [address] [place] [address] Godfrey Claros MD 299 [facility] [address] [place] [address] 09/12/2025 12:30 PM EST Office Visit Adult Medicine [address] [phone] Lex Rich MD [address] [place] [address] documented as of this encounter Procedures Procedure Name Priority Date/Time Associated Diagnosis Comments PREALBUMIN Routine 10/08/2024 5:24 AM EDT Polymyalgia rheumatica (CMS/HCC) documented in this encounter Results * Prealbumin (10/08/2024 5:24 AM EDT) Prealbumin 27 18 - 45 mg/dL LAB CHEMISTRY METHOD 10/08/2024 11:51 AM EDT [facility] Blood Venous blood specimen / Unknown Venipuncture / Unknown 10/08/2024 5:24 AM EDT 10/08/2024 10:33 AM EDT us Mainor Crawford MD LAB BLOOD ORDERABLES Final Resul t [facility] [address] [place] [address], documented in this encounter Visit Diagnoses Diagnosis Polymyalgia rheumatica (CMS/HCC V24) Polymyalgia rheumatica documented in this encounter Care Teams Rehabilitation Therapy Technician Relationship Specialty Start Date End Date Lex Rich MD [address] [place] [phone] PCP - General Internal Medicine 05/24/24 documented as of this encounter
--- OUTSIDE RECORDS SUMMARY | 2025-07-06 10:32 | XMS_ITS | Encounter Summary ---
Author Organization [facility] Address [address] [place] [address] Care Team Providers Care Pcb Designer Name Role Phone Lex Rich MD Primary Care Pr ovider Encounter Details Date Type Department Care Team ([facility] Contact Info) Description 09/19/2024 Billing Patient Not Present Adult Medicine [address] [phone] Garo [place], [place] Social History Tobacco Use Types Packs/Day [...] 9:00 AM EST Office Visit Pulmonology - [address] [place] [address] Aysha Hernandez MD [address] [place] [phone] 08/01/2025 11:40 AM EST Office Visit [address] [phone] Melinda Lyle MD [address] [place] [address] 08/02/2025 1:[address] [facility] [address] [facility] [address] [place] [address] Arpita Willis, PA [address] [place] [phone] 08/06/2025 10:15 AM EST Office Visit Orthopedic Surgery - [place] 250 175 [facility] 250 [place] [phone] Diony Toledo, DPM 175 [facility] 250 [place] [phone] 08/28/2025 1:00 PM EST Office Visit Gastroenterology - 299 [facility] 299 [facility] 419 [place] [address] Godfrey Claros MD 299 [facility] 419 [place] [address] 09/12/2025 12:30 PM EST Office Visit Adult Medicine [address] [phone] Lex Rich MD [address] [place] [address] documented as of this encounter Visit Diagnoses Not on filedocumented in this encounter Care Teams Pcb Designer Relationship Specialty Start Date End Date Lex Rich MD [address] [place] [address] PCP - General Internal Medicine 05/24/24 documented as of this encounter
--- OUTSIDE RECORDS SUMMARY | 2025-07-06 10:32 | XMS_ITS | Data Portability ---
Author Organization [facility] Address [address] [place] [address] Care Team Providers Care Cloth Designer Name Role Phone HIM CCA OTHER Assessment Encounter Date Assessment Date Assessment LastModified by Organization Details LastModified Time 12/13/2023 12/13/2023 I provided real -time medical direction via phone for this encounter and was available for additional phone-based assistance as needed. I have reviewed and agree with the Assessment and Plan as documented by the Rn Mds. Patient given the opportunity to ask questions. Our service contacted for an assessment of: Chronic pain As per above, patient with hx of chronic pain. No new or worsening red S&S. No new bowel/bladder symptoms. No new gait abnl. No new neurological signs, symptoms or deficits. Per customer service rep on the scene, VSS, non-toxic. Neuro grossly [...] in the field was performed by my customer service rep colleague, as noted above, I provided real-time [...] ICD10 Code Diagnosis IMO Codes Diagnosis Note [id number] Mariella Castro MD Main - [address] [phone] 12/13/2023 13:40:10 12/13/2023 17:51:43 Chronic pain [id number] G89.29 [id number] Hafsa Angel MD Main - [address] [phone] 12/14/2023 19:15:30 12/15/2023 11:44:34 Erythematous rash [id number] R21 Health Concerns Section Related Observation LastModified by Organization Detai ls LastModified Time None Recorded Concern Status LastModified by Organization Details LastModified Time None Recorded Advance Directives Directive None Recorded Payers Insurance Date Sequence Insurance Name Policy Number Policy Haywood Covered Member ID Haywood Member ID Guarantor Name 12/12/2023 1 [facility] - DOS ON OR AFTER 2022 - DUAL ELIGIBLE - LONG TERM OPTIONS AND ONE CARE (MEDICARE REPLACEMENT/ADV ANTAGE - HMO) Patricia Alexandre [id number] Patricia Alexandre Notes Date Note Type Note [...] ................. ................. ................. ................. ................. ................. ..... Rn Mds Note From Elena Chahal: 58y F c/o [...] ................. ..... Disposition: Cole Castro MD [address] [facility],[address], [place], [address], JULIAN - InbilinCRIS THOMAS 12/13/2023 13:48:03 12/14/2023 text/html CRC Nurse Triage Notes (Danelle Cotton): Reason For Request: Follow up from surgery /muscular spasms Chief Complaints: Pain PMH: Other Allergies: Unknown Comments: Mail Inserter verified the member's name//address and phone number. Member is a 58 yr old female, yi speaking PMH Son calling for member, had [...] reported s/s and [facility]: spasms of right arm are chronic. [...] ................. ................. ................. ................. ................. ................. ........ Rn Mds Note From Caden Bennett: Dispatched to the call address for the follow up. [facility]. [...] ..... Disposition: Fulfilled Hafsa Angel MD [address] [facility],[address], [place], [address], [facility] 12/14/2023 21:13:02 OBGyn Episode No OBEpisode recorded.
--- OUTSIDE RECORDS SUMMARY | 2025-07-06 10:32 | XMS_ITS | Encounter Summary ---
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 - Main Lab [address] [facility] [place] [address] Mainor Crawford MD [address] [facility] [address] [place], [address] Polymyalgia rheumatica (CMS/HCC V24) Social History [...] 9:00 AM EST Office Visit Pulmonology - [place] [address] [facility] [address] [place] [address] Aysha Hernnadez MD [address] [place] [address] 08/01/2025 11:40 AM EST Office Visit Endocrinology [address] [phone] Melinda Lyle MD [address] [place] [address] 08/02/2025 1:00 PM EST Consult [facility] MS - [place] [address] [facility] [address] [place] [phone] Arpita Willis, PA [address] [place] [phone] 08/06/2025 10:15 AM EST Office Visit Orthopedic Surgery [facility] [address] [facility] [address] [place] [phone] Diony Toledo, DPM [address] [facility] [address] [place] [phone] 08/28/2025 1:00 PM EST Office Visit Gastroenterology - [address] [facility] [address] [facility] [address] [place] [address] Godfrey Claros MD [address] [facility] [address] [place] [address] 09/12/2025 12:30 PM EST Office Visit Adult Medicine [address] [phone] Lex Rich MD [address] [place] [address] documented as of this encounter Procedures Procedure Name Priority Date/Time Associated Diagnosis Comments COMPLETE BLOOD COUNT Routine 09/27/2024 4:53 AM EST Polymyalgia rheumatica (CMS/HCC) COMPREHENSIVE METABOLIC PANEL Routine 09/27/2024 4:53 AM EST Polymyalgia rheumatica (CMS/HCC) documented in this encounter Results * (ABNORMAL) Comprehensive metabolic panel (09/27/2024 4:53 AM EST) Sodium 134 133 - 145 mmol/L LAB CHEMISTRY METHOD 09/27/2024 10:15 AM [facility] Potassium 3.8 3.5 - 5.5 mmol/L LAB CHEMISTRY METHOD 09/27/2024 10:15 AM [facility] Chloride 97 96 - 110 mmol/L LAB CHEMISTRY METHOD 09/27/2024 10:15 AM [facility] CO2 30 21 - 32 mmol/L LAB CHEMISTRY METHOD 09/27/2024 10:15 AM [facility] Anion Gap 7 3 - 11 LAB CHEMISTRY METHOD 09/27/2024 10:15 AM [facility] Glucose 108(H) 70 - 100 mg/dL LAB CHEMISTRY METHOD 09/27/2024 10:15 AM [facility] BUN 19 5 - 25 mg/dL LAB CHEMISTRY METHOD 09/27/2024 10:15 AM [facility] Creatinine 0.57 0.50 - 1.10 mg/dL LAB CHEMISTRY METHOD 09/27/2024 10:15 AM [facility] eGFR 106 >=60 mL/min/1. 73m2 LAB CHEMISTRY METHOD 09/27/2024 10:15 AM [facility] Comment:Calculation based on the Chronic Kidney Disease Epidemiology Collaboration (CKD-EPI) equation refit without adjustment for race. BUN/Creatinine Ratio 33.3 LAB CHEMISTRY METHOD 09/27/2024 10:15 AM [facility] Calcium 8.6 8.5 - 10.5 mg/dL LAB CHEMISTRY METHOD 09/27/2024 10:15 AM [facility] AST (SGOT) 35 10 - 42 unit/L LAB CHEMISTRY METHOD 09/27/2024 10:15 AM [facility] ALT (SGPT) 60 10 - 60 unit/L LAB CHEMISTRY METHOD 09/27/2024 10:15 AM [facility] Alkaline Phosphatase 100 42 - 121 unit/L LAB CHEMISTRY METHOD 09/27/2024 10:15 AM [facility] Total Protein 5.8(L) 6.0 - 8.0 g/dL LAB CHEMISTRY METHOD 09/27/2024 10:15 AM [facility] Albumin 2.3(L) 3.2 - 5.0 g/dL LAB CHEMISTRY METHOD 09/27/2024 10:15 AM [facility] Total Bilirubin 0.3 0.0 - 1.4 mg/dL LAB CHEMISTRY METHOD 09/27/2024 10:15 AM [facility] Blood Venous blood specimen / Unknown Venipuncture / Unknown 09/27/2024 4:53 AM EST 09/27/2024 8:45 AM EST us Mainor Crawford MD LAB BLOOD ORDERABLES Final Resul t [facility] [address] [place] [address], * (ABNORMAL) Complete blood count (09/27/2024 4:53 AM EST) WBC 8.7 4.8 - 10.8 K/mcL LAB HEMETOLOGY METHOD 09/27/2024 9:33 AM [facility] RBC 3.60(L) 3.80 - 4.80 M/mcL LAB HEMETOLOGY METHOD 09/27/2024 9:33 AM [facility] Hemoglobin 10.5(L) 11.5 - 16.0 g/dL LAB HEMETOLOGY METHOD 09/27/2024 9:33 AM [facility] Hematocrit 33.3(L) 35.0 - 47.0 % LAB HEMETOLOGY METHOD 09/27/2024 9:33 AM [facility] MCV 92.2 79.0 - 98.0 FL LAB HEMETOLOGY METHOD 09/27/2024 9:33 AM [facility] MCH 29.1 27.0 - 32.0 pcg LAB HEMETOLOGY METHOD 09/27/2024 9:33 AM [facility] MCHC 31.5(L) 32.0 - 37.0 g/dL LAB HEMETOLOGY METHOD 09/27/2024 9:33 AM [facility] RDW 17.8(H) 11.0 - 15.0 % LAB HEMETOLOGY METHOD 09/27/2024 9:33 AM [facility] Platelets 397 130 - 400 K/mcL LAB HEMETOLOGY METHOD 09/27/2024 9:33 AM [facility] MPV 9.2 7.0 - 11.0 FL LAB HEMETOLOGY METHOD 09/27/2024 9:33 AM [facility] NRBC 0.0 <1.0 % LAB HEMETOLOGY METHOD 09/27/2024 9:33 AM [facility] NRBC Absolute 0.00 <0.10 K/mcL LAB HEMETOLOGY METHOD 09/27/2024 9:33 AM [facility] Blood Venous blood specimen / Unknown Venipuncture / Unknown 09/27/2024 4:53 AM EST 09/27/2024 8:45 AM EST us Mainor Crawford MD LAB BLOOD ORDERABLES Final Resul t [facility] [address] [place] [address], documented in this encounter Visit Diagnoses Diagnosis Polymyalgia rheumatica (CMS/HCC V24) Polymyalgia rheumatica documented in this encounter Care Teams Pellet Machine Operator Relationship Specialty Start Date End Date Lex Rich MD [address] [place] [address] PCP - General Internal Medicine 05/24/24 documented as of this encounter
--- OUTSIDE RECORDS SUMMARY | 2025-07-06 10:33 | XMS_ITS | Clinical Summary ---
Author Organization [facility] [employer] Address [address] [place] [address] Phone Care Team Providers Care Hadoop Administrator Name Role Phone Lex Rich MD Primary [...] days 6.7 g 11 025 2025 Active mirtazapine (REMERON) 7.5 mg tablet Take [...] %) nebulizer solutionIndicatio ns:ILD (interstitial lung disease) ([facility] V24, [facility] V28) Take 3 mL (2.5 mg total) by nebulization every 6 (six) hours if needed for wheezing. 300 mL 3 025 2025 Active baclofen (LIORESAL) 10 mg tabletIndications :Polymyalgia rheumatica ([facility] V24) TAKE 1 TABLET BY [...] if needed for diarrhea. 90 tablet 1 Active meclizine (ANTIVERT) 12.5 mg tabletIndications :Vertigo [...] TIME EACH DAY. 60 tablet 11 Active lidocaine (LIDODERM) 5 % patchIndications: Primary osteoarthritis of right hip,Chronic midline low back pain without sciatica APPLY 1 PATCH TO SKIN EVERY DAY REMOVE AND DISCARD PATCH WITHIN 12 HOURS OR DIRECTED BY MD 90 patch 1 Active lidocaine (LIDODERM) 5 % patchIndications: Primary osteoarthritis of right hip,Chronic midline low back pain without sciatica APPLY 1 PATCH TO SKIN EVERY DAY REMOVE AND DISCARD PATCH WITHIN 12 HOURS OR DIRECTED BY MD 90 patch 1 025 2024 Discontinued predniSONE (DELTASONE) 2.5 mg tablet Take 1 tablet (2.5 mg total) by mouth 1 (one) time each day. 60 each 025 2024 Discontinued ondansetron (ZOFRAN) 4 mg tabletIndications :Chronic nausea [...] microalbuminuria, without long-term current use of insulin 10/21/2024 Assessment & Plan (05/31/2025 11:53 AM [...] Future Bilateral calcaneal spurs 10/19/2024 Polymyalgia rheumatica 10/18/2024 Assessment & Plan (11/22/2024 1:27 PM [...] 12 hours or as directed by MD. ILD (interstitial lung disease) 08/04/2023 Overview (05/01/2024): [...] incisional pain. 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 Hernandez in regards to her pulmonary fibrosis. Will follow-up with the thoracic surgical department moving forward on a as needed basis and to contact the thoracic surgery department should she have any further questions or concerns in the future. Assessment & Plan (02/22/2025 12:02 PM EDT): Continue pulmonology follow-up both locally and in [place]. She knew continue prednisone and Ofev as prescribed by her payroll tax analyst. Hyperlipidemia 06/27/2023 Assessment & Plan (05/31/2025 11:53 [...] Encounters Date Type Department Care Team Description 07/05/2025 9:35 AM EST Lab Draw Station [address] Localized osteoporosis without current pathological fracture 07/03/2025 1:00 PM EST Consult Endocrinology [address] [phone] Melinda Lyle MD Type 2 diabetes mellitus with diabetic microalbuminuria, without long-term current use of insulin ([facility] V24, [facility] V28) (Primary Dx); Localized osteoporosis without current pathological fracture; Subclinical hyperthyroidism 05/31/2025 11:00 AM EST Office Visit [address] [phone] Lex Rich MD Type 2 diabetes mellitus with diabetic microalbuminuria, without long-term current use of insulin ([facility] V24, [facility] V28) (Primary Dx); Mixed hyperlipidemia; Peripheral polyneuropathy; Hepatic steatosis; Localized osteoporosis without current pathological fracture; Anxiety and depression; Paranasal sinus disease; Ear pain, left; Gastroesophageal reflux disease with esophagitis without hemorrhage; Chronic nausea; Irritable bowel syndrome with diarrhea; Vertigo; H. pylori infection; Cerumen debris on tympanic membrane of left ear; Subclinical hyperthyroidism; Weight loss 05/16/2025 11:45 AM EDT Office Visit Pulmonology - [place] [address] [facility] [address] [place] [address] Aysha Hernandez MD ILD (interstitial lung disease) ([facility] V24, [facility] V28) (Primary Dx); Connective tissue disease ([facility] V24) 05/16/2025 Results Follow-Up [address] [phone] Christianne Vidales PA 05/10/2025 10:28 AM EDT - 05/10/2025 11:59 PM EDT Hospital Encounter Bone Density - [address] [phone] Osteopenia, unspecified location Discharge Disposition: Home or Self Care 04/11/2025 2:00 PM EDT Office Visit Pulmonology - [address] [place] [address] Aysha Hernandez MD ILD (interstitial lung disease) ([facility] V24, [facility] V28) (Primary Dx) from Last 3 Months Immunizations Immunization Administration [...] SURGERY CARDIAC CATHETERIZATION DONE ON 04/24/2024 AT [facility] W KM INDICATIONS CHEST PAIN Medical History [...] ed Within the last 3 months, monserrat w many times did you visit the [...] do you feel lonely or isolated from ose around you? Never 10/18/2024 Food Risk [...] your loved ones. For example, child care education coordinator or elderly care for an older adult? [...] Pulse 97 07/03/2025 1:07 PM EST Temperature 36.6 C (97.8 F) 05/31/2025 10:33 AM EST Respiratory Rate 16 05/31/2025 10:33 AM EST Oxygen Saturation 97% 05/16/2025 11:58 AM EDT Inhaled Oxygen Concentration - - Weight 55.3 kg (122 lb) 07/03/2025 1:07 PM EST Height 152.4 cm (5') 05/31/2025 10:33 AM EST Body Mass Index 23.83 05/31/2025 10:33 AM EST Plan of Treatment Upcoming Encounters Date Type Department Care Team (Late st Contact Info) Description 07/15/2025 9:00 AM EST Office Visit Pulmonology [facility] [address] [facility] [address] [place] [phone] Aysha Hernandez MD [address] [place] [phone] 08/01/2025 11:40 AM EST Office Visit Endocrinology - [place] [address] [place] [phone] Melinda Lyle MD [address] [place] [address] 08/02/2025 1:00 PM EST Consult [facility] [address] [facility] [address] [place] [phone] Arpita Willis PA [address] [place] [phone] 08/06/2025 10:15 AM EST Office Visit Orthopedic Surgery [facility] [address] [facility] 250 [place] [phone] Diony Toledo, DPM [address] [facility] 250 [place] [phone] 08/28/2025 1:00 PM EST Office Visit Gastroenterology - [address] [phone] Godfrey Claros MD [address] [address] 09/12/2025 12:30 PM EST Office Visit Adult Medicine [address] [phone] Lex Rich MD [address] [place] [address] Health Maintenance Due Date Last Done Comments Diabetes: Annual Foot Exam 1976 Diabetes: Annual Retina Eye Exam 1976 RSV Immunization Adult Patients (1 - Risk 50-74 years 1-dose series) 2016 Zoster Vaccines (1 of 2) 2016 Medicare Annual Wellness Visit 08/18/2023 COVID-19 Vaccine ( season) 2025 Diabetes: Blood Sugar Control Test [...] Procedure Name Priority Date/Time Associated Diagnosis Comments PROTEIN, TOTAL Routine 07/05/2025 9:54 AM EST Localized osteoporosis without current pathological fracture THYROID STIMULATING HORMONE Routine 07/05/2025 9:54 AM [...] EST Localized osteoporosis without current pathological fracture BD BONE DENSITY DXA AXIAL SKELETON Routine 05/10/2025 11:10 AM EDT Osteopenia, unspecified location CBC WITH AUTO DIFFERENTIAL Routine 04/11/2025 2:47 PM EDT ILD (interstitial lung disease) (CMS/HCC V24, CMS/HCC V28) CBC AND DIFFERENTIAL Routine 04/11/2025 2:47 PM EDT ILD (interstitial lung disease) (CMS/HCC V24, CMS/HCC V28) MG MAMMO DIGITAL SCREENING W NMEESIO BILAT Routine 03/13/2025 10:57 AM EDT Encounter for screening mammogram for breast cancer MICROALBUMIN CREATININE URINE RATIO Routine 02/25/2025 9:14 AM EDT Type 2 diabetes mellitus with diabetic polyneuropathy, without long-term current use of insulin (CMS/HCC V24, CMS/HCC V28) COMPREHENSIVE METABOLIC PANEL Routine 02/25/2025 9:14 [...] Recently Relevant to Health Maintenance Results * Thyroid stimulating hormone (07/05/2025 9:54 AM EST) TSH 1.33 0.40 - 4.00 mcIU/mL 07/05/2025 1:10 PM EST [facility] Blood Venous blood specimen / Unknown Venipuncture / Unknown 07/05/2025 9:54 AM EST 07/05/2025 9:54 AM EST us Melinda Lyle MD LAB BLOOD ORDERABLES Final Result [facility] [address] [place] [address], [place] [phone] * Thyroxine free (07/05/2025 9:54 AM EST) Free T4 1.25 0.70 - 1.80 ng/dL 07/05/2025 1:15 PM EST [facility] Blood Venous blood specimen / Unknown Venipuncture / Unknown 07/05/2025 9:54 AM EST 07/05/2025 9:54 AM EST us Melinda Lyle MD LAB BLOOD ORDERABLES Final Result Performing Organization Address [facility]/ZIP Co de Phone Number [facility] [address] [place] [address], [place] [phone] * Protein, total (07/05/2025 9:54 AM EST) Total Protein 7.6 6.0 - 8.0 g/dL 07/05/2025 12:56 PM EST [facility] Blood Venous blood specimen / Unknown Venipuncture / Unknown 07/05/2025 9:54 AM EST 07/05/2025 9:54 AM EST us Melinda Lyle MD LAB BLOOD ORDERABLES Final Result [facility] [address] [place] [address], * Parathyroid hormone intact (07/05/2025 9:54 AM EST) PTH 69.9 18.5 - 88.0 pcg/mL 07/05/2025 1:06 PM [facility] Blood Venous blood specimen / Unknown Venipuncture / Unknown 07/05/2025 9:54 AM EST 07/05/2025 9:54 AM EST Melinda Lyle MD LAB BLOOD ORDERABLES Final Result [facility] [address] [place] [address], * Calcium, urine, 24H (07/05/2025 9:39 AM EST) Calcium, Ur 5.0 mg/dL 07/05/2025 12:54 PM [facility] Calcium, 24H Urine 55 10 - 300 mg/24 hr 07/05/2025 12:54 PM [facility] Urine Volume 1,100 mL 07/05/2025 12:54 PM [facility] Collection Interval, Ur 24 hr 07/05/2025 12:54 PM [facility] Urine Urine specimen from urethra / Unknown Non-blood Collection / Unknown 07/05/2025 9:39 AM EST 07/05/2025 9:39 AM EST Melinda Lyle MD LAB URINE ORDERABLES Final Result [facility] [address] [place] [address], [place] [phone] * (ABNORMAL) Creatinine, urine, 24H (07/05/2025 9:39 AM EST) Creatinine, Urine 38.0 mg/dL 07/05/2025 12:54 PM [facility] Creatinine, 24H Ur 418(L) 600 - 1,800 mg/24 Hr 07/05/2025 12:54 PM [facility] Urine Volume 1,100 mL 07/05/2025 12:54 PM [facility] Collection Interval, Ur 24 hr 07/05/2025 12:54 PM [facility] Urine Urine specimen from urethra / Unknown Non-blood Collection / Unknown 07/05/2025 9:39 AM EST 07/05/2025 9:39 AM EST us Melinda Lyle MD LAB URINE ORDERABLES Final Result [facility] [address] [place] [address], * BD Bone Density DXA Axial Skeleton (05/10/2025 11:10 AM EDT) Anatomical Region Laterality Modality Wrist, Hip, L-spine Bone Densito metry 05/13/2025 12:4 9 PM EDT Impressions 05/13/2025 12:50 PM EDT Impression: This patient is considered to have osteoporosis by WHO criteria. [facility] Department of Internal Medicine recommends using [...] alternative screening schedule based on juany Iraheta., [facility] August 12, 2011 for patients [...] Signed Date: 05/13/2025 12:50 ET Workstation ID: [id number] Transcribed By: Self Edit Transcribed Date: 05/13/2025 [...] to have osteoporosis by WHO criteria. [facility] Department of Internal Medicine recommendsusing National [...] FRAX. Optional alternative screening schedule based on debra Iraheta al., [facility] for patients with osteopenia [...] Dictated Date: 05/13/2025 12:49 ET Assigned Physician: Myaa Garcia Reviewed and Electronically Signed By: Maya Garcia Signed Date: 05/13/2025 12:50 ET Workstation ID: [id number] Transcribed By: Self Edit Transcribed Date: 05/13/2025 12:49 ET us Lex Rich MD [facility] DXA PROCEDUR ES Final Result * (ABNORMAL) CBC auto differential (04/11/2025 2:47 PM EDT) [facility] Signature WBC 9.5 4.8 - 10.8 K/mcL LAB HEMETOLOGY METHOD 04/11/2025 6:27 PM EDT [facility] RBC 4.30 3.80 - 4.80 M/mcL LAB HEMETOLOGY METHOD 04/11/2025 6:27 PM EDT [facility] Hemoglobin 12.8 11.5 - 16.0 g/dL LAB HEMETOLOGY METHOD 04/11/2025 6:27 PM EDT [facility] Hematocrit 40.2 35.0 - 47.0 % LAB HEMETOLOGY METHOD [facility]/11[facility]2025 6[facility] MCV 93.9 79.0 - 98.0 FL LAB HEMETOLOGY METHOD 04/11/2025 6:27 [facility] MCH 29.9 27.0 - 32.0 pcg LAB HEMETOLOGY METHOD 04/11/2025 6:27 PM EDT [facility] MCHC 31.8(L) 32.0 - 37.0 g/dL LAB HEMETOLOGY METHOD 04/11/2025 6:27 [facility] RDW 14.8 11.0 - 15.0 % LAB HEMETOLOGY METHOD 04/11/2025 6:27 PM EDT [facility] Platelets 526(H) 130 - 400 K/mcL LAB HEMETOLOGY METHOD 04/11/2025 6:27 PM EDT [facility] MPV 9.5 7.0 - 11.0 FL LAB HEMETOLOGY METHOD 04/11/2025 6:27 [facility] NRBC 0.0 <1.0 % LAB HEMETOLOGY METHOD 04/11/2025 6:27 [facility] NRBC Absolute 0.00 <0.10 K/mcL LAB HEMETOLOGY METHOD 04/11/2025 6:27 PM EDT [facility] Neutrophils Relative 68.7 % LAB HEMETOLOGY METHOD 04/11/2025 6:27 [facility] Lymphocytes Relative 25.8 % LAB HEMETOLOGY METHOD 04/11/2025 6:27 PM [facility] Monocytes Relative 3.9 % LAB HEMETOLOGY METHOD 04/11/2025 6:27 PM [facility] Eosinophils Relative 0.1 % LAB HEMETOLOGY METHOD 04/11/2025 6:27 [facility] Basophils Relative 0.9 % LAB HEMETOLOGY METHOD 04/11/2025 6:27 PM [facility] Immature Granulocytes Relative 0.6 % LAB HEMETOLOGY METHOD 04/11/2025 6:27 PM [facility] Neutrophils Absolute 6.55 1.50 - 7.00 K/mcL LAB HEMETOLOGY METHOD 04/11/2025 6:27 PM [facility] Lymphocytes Absolute 2.46 1.00 - 5.00 K/mcL LAB HEMETOLOGY METHOD 04/11/2025 6:27 PM [facility] Monocytes Absolute 0.37 0.20 - 1.00 K/mcL LAB HEMETOLOGY METHOD 04/11/2025 6:27 PM [facility] Eosinophils Absolute 0.01 0.00 - 0.50 K/mcL LAB HEMETOLOGY METHOD 04/11/2025 6:27 PM [facility] Basophils Absolute 0.09 0.00 - 0.20 K/mcL LAB HEMETOLOGY METHOD 04/11/2025 6:27 PM [facility] Immature Granulocytes Absolute 0.06(H) 0.00 - 0.03 K/mcL LAB HEMETOLOGY METHOD 04/11/2025 6:27 PM [facility] Blood Venous blood specimen / Unknown Venipuncture / Unknown 04/11/2025 2:47 PM EDT 04/11/2025 2:47 PM EDT us Aysha Hernandez MD LAB BLOOD ORDERABLES Final Resul t [facility] [address] [place] [address], [place] [phone] * MG Mammo Digital Screening w Nemesio bilat (03/13/2025 10:57 AM EDT) Anatomical Region Laterality Modality Breast Bilateral Mammography 03/14/2025 11:2 3 AM EDT Impressions 03/14/2025 11:27 AM EDT Benign. BI-RADS CATEGORY: 1 - NEGATIVE RECOMMENDATION: Screening bilateral mammogram is recommended in 1 year. Mammo Location: [facility], [address] [place] [address], [address], . -------- FINAL REPORT -------- Dictated By: Maya Garcia Dictated Date: 03/14/2025 11:23 ET Assigned Physician: Maya Garcia Reviewed and Electronically Signed By: Maya Garcia Signed Date: 03/14/2025 11:27 ET Workstation ID: [id number] Transcribed By: Self Edit Transcribed Date: 03/14/2025 [...] is recommended in 1 year. Mammo Location: [facility], [address] [place] [address], [address], . -------- FINAL REPORT -------- Dictated By: Maya Garcia Dictated Date: 03/14/2025 11:23 ET Assigned Physician: Maya Garcia Reviewed and Electronically Signed By: Maya Garcia Signed Date: 03/14/2025 11:27 ET Workstation ID: [id number] Transcribed By: Self Edit Transcribed Date: 03/14/2025 11:23 ET Lex Rich MD IMG BI PROCEDURE S Final Result * Lipid panel with reflex to direct LDL (02/25/2025 9:14 AM EDT) Cholesterol 181 0 - 200 mg/dL LAB CHEMISTRY METHOD 02/25/2025 2:45 PM EDT [facility] Triglycerides 61 0 - 150 mg/dL LAB CHEMISTRY METHOD 02/25/2025 2:45 PM EDT [facility] HDL 72 >=40 mg/dL LAB CHEMISTRY METHOD 02/25/2025 2:45 PM EDT [facility] LDL Calculated 97 0 - 100 mg/dL LAB CHEMISTRY METHOD 02/25/2025 2:45 PM EDT [facility] VLDL Cholesterol Tamir 12.2 mg/dL LAB CHEMISTRY METHOD 02/25/2025 2:45 PM EDT [facility] Non HDL Chol. (LDL+VLDL) 109 <145 mg/dL LAB CHEMISTRY METHOD 02/25/2025 2:45 PM EDT [facility] Chol/HDL Ratio 2.5 0.0 - 4.4 LAB CHEMISTRY METHOD 02/25/2025 2:45 PM EDT [facility] Blood Venous blood specimen / Unknown Venipuncture / Unknown 02/25/2025 9:14 AM EDT 02/25/2025 9:14 AM EDT us Lex Rich MD LAB BLOOD ORDERA BLES Final Result Performing Organization Address City/[facility] Co de Phone Number [facility] [address] [place] [address], [place] [phone] * Microalbumin creatinine urine ratio (02/25/2025 9:14 AM EDT) Creatinine, Urine 43.0 mg/dL LAB CHEMISTRY METHOD 02/25/2025 11:30 AM EDT [facility] Microalb, Ur <5.0 0.0 - 29.0 mg/L LAB CHEMISTRY METHOD 02/25/2025 11:30 AM EDT [facility] Microalb/Creat Ratio <12 <30 mg/g creat LAB CHEMISTRY METHOD 02/25/2025 11:30 AM EDT [facility] Urine Urine specimen obtained by clean catch procedure / Unknown Non-blood Collection / Unknown 02/25/2025 9:14 AM EDT 02/25/2025 9:14 AM EDT us Lex Rich MD LAB URINE ORDERA BLES Final Result Performing Organization Address City/[facility]/ZIP Co de Phone Number [facility] [address] [place] [address], * Hemoglobin A1c (02/25/2025 9:14 AM EDT) [facility] Hemoglobin A1C 5.9 <6.5 % LAB CHEMISTRY METHOD 02/25/2025 12:22 PM EDT [facility] Mean Bld Glu Estim. 123 mg/dL LAB CHEMISTRY METHOD 02/25/2025 12:22 PM EDT [facility] Blood Venous blood specimen / Unknown Venipuncture / Unknown 02/25/2025 9:14 AM EDT 02/25/2025 9:14 AM EDT Lex Rich MD LAB BLOOD ORDERA BLES Final Result Performing Organization Address City/[facility]/ZIP Co de Phone Number [facility] [address] [place] [address], [place] [phone] * (ABNORMAL) Comprehensive metabolic panel (02/25/2025 9:14 AM EDT) [facility] Sodium 137 133 - 145 mmol/L LAB CHEMISTRY METHOD 02/25/2025 2:45 PM EDT [facility] Potassium 5.0 3.5 - 5.5 mmol/L LAB CHEMISTRY METHOD 02/25/2025 2:45 PM EDT [facility] Chloride 104 96 - 110 mmol/L LAB CHEMISTRY METHOD 02/25/2025 2:45 PM EDT [facility] CO2 28 21 - 32 mmol/L LAB CHEMISTRY METHOD 02/25/2025 2:45 PM EDT [facility] Anion Gap 5 3 - 11 LAB CHEMISTRY METHOD 02/25/2025 2:45 PM EDT [facility] Glucose 120(H) 70 - 100 mg/dL LAB CHEMISTRY METHOD 02/25/2025 2:45 PM [facility] BUN 12 5 - 25 mg/dL LAB CHEMISTRY METHOD 02/25/2025 2:45 PM [facility] Creatinine 0.72 0.50 - 1.10 mg/dL LAB CHEMISTRY METHOD 02/25/2025 2:45 PM [facility] eGFR 97 >=60 mL/min/1. 73m2 LAB CHEMISTRY METHOD 02/25/2025 2:45 PM [facility] Comment:Calculation based on the Chronic Kidney Disease Epidemiology Collaboration (CKD-EPI) equation refit without adjustment for race. BUN/Creatinine Ratio 16.7 LAB CHEMISTRY METHOD 02/25/2025 2:45 PM [facility] Calcium 9.6 8.5 - 10.5 mg/dL LAB CHEMISTRY METHOD 02/25/2025 2:45 PM [facility] AST (SGOT) 18 10 - 42 unit/L LAB CHEMISTRY METHOD 02/25/2025 2:45 PM [facility] ALT (SGPT) 37 10 - 60 unit/L LAB CHEMISTRY METHOD 02/25/2025 2:45 PM [facility] Alkaline Phosphatase 98 42 - 121 unit/L LAB CHEMISTRY METHOD 02/25/2025 2:45 PM [facility] Total Protein 7.1 6.0 - 8.0 g/dL LAB CHEMISTRY METHOD 02/25/2025 2:45 PM [facility] Albumin 3.2 3.2 - 5.0 g/dL LAB CHEMISTRY METHOD 02/25/2025 2:45 PM [facility] Total Bilirubin 0.3 0.0 - 1.4 mg/dL LAB CHEMISTRY METHOD 02/25/2025 2:45 PM [facility] Blood Venous blood specimen / Unknown Venipuncture / Unknown 02/25/2025 9:14 AM EDT 02/25/2025 9:14 AM EDT Lex Rich MD LAB BLOOD ORDERA BLES Final Result Performing Organization Address City/[facility]/ZIP Co de Phone Number [facility] [address] [place] [address], [place] [phone] * Hepatitis C antibody (07/12/2024 10:05 AM EST) Pathologist [facility] Hepatitis C Antibody Negative Negative LAB CHEMISTRY METHOD 07/12/2024 1:27 PM EST [facility] Blood Venous blood specimen / Unknown Venipuncture / Unknown 07/12/2024 10:05 AM EST 07/12/2024 10:05 AM EST Lex Rich MD LAB BLOOD ORDERA BLES Final Result Performing Organization Address [facility] Co de Phone Number [facility] [address] [place] [address], [place] [phone] * Hm Colonoscopy (09/21/2023) [facility] Colonoscopy no interpreta tion,abstr acted Anatomical Region Laterality Modality Other Historical Provider HEALTH MAINTENANCE Final Result from Last 3 Months or Most Recently Relevant to Health Maintenance Insurance [employer] Member Subscriber Plan / Payer (Ef fective 2022-Present) Name:MEHRAN ALEXANDRE Relation to Subscriber:Self Name:Mehran Alexandre Payer ID:[id number] Group ID:[id number] Type:Not on file Address: [facility] [place] [phone] Care Teams Hadoop Administrator Relationship Specialty Start Date End Date Lex Rich, MD [address] [place] [phone] PCP - General Internal Medicine 05/24/24
== END 2025-07-06 10:28 | disposition home or self-care (01) ==
LOC: HO.MRI 10:27
PROVIDERS: PCP Family Medicine; Visit Provider Registered Nurse Emergency
DX: R29.898 Other symptoms and signs involving the musculoskeletal system (principal); M47.816 Spondylosis without myelopathy or radiculopathy, lumbar region; G89.4 Chronic pain syndrome
CPT/HCPCS: 72148

== ENCOUNTER → 2025-07-06 10:31 | Outpatient (BNV) | payer OTHER, SELFPAY | PROVIDERS: PCP Family Medicine; Visit Provider Radiology Diagnostic Radiology | DX: R29.898 Other symptoms and signs involving the musculoskeletal system (principal) | CPT/HCPCS: 72148 ==

== ENCOUNTER 2025-07-08 09:57 | Outpatient (AMB) | payer OTHER, SELFPAY ==
[2025-07-08 10:02] VITALS: BP 110/70; PULSE 105; RESP 16; O2SAT 98; BMI 23.8
--- NOTE | 2025-07-08 10:02 | MHC.OFFVIS ---
Vital Signs 07/08/25 10:02 Height 5 ft Weight 122 lb BMI 23.8 BP 110/70 Blood Pressure Location Lt brachial Position Sitting Respiration 16 Pulse 105 H Pulse Oximetry (%) 98 Oxygen Delivery Method Room Air Intake Visit Reasons: Trigger point Rehabilitation Liaison Required: Yes Rehabilitation Liaison Services: Rehabilitation Liaison Offered & Declined Rehabilitation Liaison Name: Pt's niece as vp information technology Information Interpreted: non-clinical & clinical Accompanied by: Nephew or Niece Allergies No Known Allergies Allergy (Verified 07/08/25 10:04) HPI Comments Details: Patricia is a 59-year-old female patient with past medical history of neuropathy symptoms affecting both of her legs. She was seen by Dr. Mauri ndiaye on 05/23/2025 at which time she reported that these symptoms have been going on for over a year starting after she took prednisone for pulmonary fibrosis which led to transient elevation in her blood sugars. Her symptoms include cramping sensation, heaviness to her legs, and pain in both legs. It has been impacting her sleep and quality of life. Prior to these of prednisone, she did not have a standing history of diabetes. Her symptoms improved after initiation of gabapentin. An EMG study was ordered at time of last visit. EMG 06/17/2025: Findings: Tibial and peroneal motor amplitudes were markedly diminished with mild prolongation of distal latencies and of tibial conduction velocities. Sural responses were absent. Superficial peroneal amplitude was diminished on left side with slow conduction velocity. Right superficial peroneal seem to be okay. Left radial sensory was absent. Left median mixed distal latencies was borderline. H responses were absent. F responses were falling with a normal range. Impression: [id number] axonal sensory and motor somewhat patchy peripheral neuropathy affecting legs more than upper extremity. The patient explained to me during our last visit that the Lyrica was helping her lower extremity symptoms throughout the day. At last visit we discussed the importance of glucose management. She did have an appointment with endocrinology at [facility] on 07/03/2025. She had some testing performed at that time but has not yet started on any therapy with them. She also mentioned right occipital headaches we had started approximately 3 months ago. The pain was daily and constant and could be severe. It was not accompanied by any light or sound sensitivity or any nausea. She did note some dizziness when her pain became more severe. She had an MRI at [place] recently (February 2025) and she had report on patient portal during visit. Report was unremarkable/normal study. We discussed options at time of last visit which included topical agents and nerve block/trigger point injections. She opted to come in for the injections. She is here today for most a right-sided occipital nerve block and right trapezius trigger point injection. 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) Patient Tobacco Use Status: Never used Tobacco e-Cigarette/Vaping Use: Never Used Advance Directives Date on File: 09/27/24 service: No Review of Systems Const All systems reviewed & are unremarkable except as noted in HPI and below Physical Exam Vital Signs: Last Vital Signs Pulse 105 H 07/08/25 10:02 Resp 16 07/08/25 10:02 BP 110/70 07/08/25 10:02 Pulse Ox 98 07/08/25 10:02 Oxygen Delivery Method Room Air 07/08/25 10:02 BMI result Body Mass Index 23.8 Const Orientation/consciousness: patient oriented x3 Back/Spine/Pelvis Other: Severe right occipital notch tenderness and right trapezius trigger point. Neuro General: patient oriented x3 and CN's II-XI intact bilaterally Cognition (Neuro): normal cognition Gait exam (Neuro): Assisted gait required Motor exam (neuro): 5/5 motor strength present throughout and no tremor noted Sensory Exam: sensory level loss detected (Slight reduction in vibratory sensation to the LLE great toe only ) Deep tendon reflexes (DTR's): Right triceps reflex intensity grade: 2+, Left triceps reflex intensity grade: 2+, Rt Biceps (C5, C6): 2+, Left biceps reflex intensity grade: 2+, Right brachioradialis reflex intensity grade: 2+, Left brachioradialis reflex intensity grade: 2+, Right patellar reflex intensity grade: 2+, Left patellar reflex intensity grade: 2+, Right ankle reflex intensity grade: 1+ and Left ankle reflex intensity grade: 1+ Office Procedures Nerve Block Details: Bilateral Greater Occipital Nerve block procedure: Laterally: Right Indications: Occipital neuralgia Current allergies and current list of medications were reviewed prior to procedure, verbal consent was obtained, procedure was explained in detail to the patient prior to starting. Time-out was performed prior to procedure. Following universal hygiene protocols, patient's right occipital area was located by drawing a line between the external occipital protuberance and the mastoid process. The greater occipital nerve was located approximately 2/3 along this inspector conveyor line to the occiput, and corresponded with the point of maximum tenderness. Alcohol was applied topically to the skin. A 27 gauge needle (aspirating during insertion) was inserted at a 45 degree angle until just above the periosteum. The providers selected agent (s)/medications (as documented in this note) were injected on the left side (directing needle to center, left and right of painful focus any fanning technique). Pressure with gauze pad was held briefly upon the site of puncture to minimize bleeding and to further spread anesthetic subcutaneously. The patient was monitored for 15 minutes after the procedure and no complications were observed. Post procedure care was reviewed with the patient including application of ice intermittently to the injection sites over the course of the day to reduce inflammation. CPT: 15534-Dowmvhb Occipital Procedure code (CPT) selection complete Therapeutic Injection Therapeutic Injection Details: Trigger point injection procedure: Laterally:Right Indications: Chronic headaches, myofascial pain Following universal hygiene protocol, after explaining the risks and benefits as well as hazards of the procedure to the patient, consent was signed and placed in the chart. Time-out prior to starting the procedure was performed. The areas over the right trpezius were cleansed with alcohol. 1 Sites in the right trapezius muscle injected with a 27 gauge 1.5 in needle with myofascial spasm. Patient tolerated the procedure well, localized bleeding was controlled. Patient monitored in the clinic for 15 minutes for complications. Patient was discharged home with instructions to apply ice to the back of their head as needed. 31850-Woqronq Point Injection 1 or 2 sites All charges added?: Procedure code (CPT) selection complete Office Meds bupivacaine (PF) 0.5 % (5 mg/mL) injection solution Performing Provider: Alysha Storm CNP [place] [facility] [place] [facility] Administered by: Alysha Storm CNP on 07/08/25 10:18 Dose Route Admin Location Dispensed Lot Number Expiration Date [facility] [place] [employer] Operator 3 mL Infiltration 10 mL [id number] [employer] Total Dispensed Waste 10 mL 70 % bupivacaine (PF) 0.5 % (5 mg/mL) injection solution Performing Provider: Alysha Storm CNP [place] [facility] [place] [facility] Administered by: Alysha Storm CNP on 07/08/25 10:18 Dose Route Admin Location Dispensed Lot Number Expiration Date [facility] [place] [employer] Operator 1.5 mL Infiltration 10 mL [id number] [employer] Total Dispensed Waste 10 mL 85 % Assessment & Plan Assessment & Plan (1) Occipital neuralgia of right side: Code(s): M54.81 - Occipital neuralgia Category: Medical (2) Trigger point of right shoulder region: Code(s): M25.511 - Pain in right shoulder Category: Medical (3) Muscle pain, myofascial: Code(s): M79.18 - Myalgia, other site Category: Medical (4) Peripheral neuropathy: Code(s): G62.9 - Polyneuropathy, unspecified Category: Medical Plan Patricia is a 59-year-old female patient with past medical history of neuropathy symptoms affecting both of her legs. 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 Slightly related to blood glucose levels. She had an initial appointment with Endocrinology at the beginning of this month. In terms of pain management, she is currently doing well on the Lyrica 100 mg twice daily for the neuropathy. At last visit, she mentioned right-sided headaches for which I did a right-sided occipital nerve block and trigger point injections today. I will have her come back in 3 weeks for repeat injections if indicated based on evaluation. -Continue lyrica 100mg twice daily -Continue diclofenac gel 1% to the right occipital and trapezius area -Right sided trigger point and occipital nerve block performed in office today Orders: Orders AMB Nerve Block Today M25.511 - Pain in right shoulder, M54.81 - Occipital neuralgia, M79.18 - Myalgia, other site AMB Trigger Point Injection Today M25.511 - Pain in right shoulder, M54.81 - Occipital neuralgia, M79.18 - Myalgia, other site Coding Level of Care Code Est Pt Level 2 (44543) Diagnoses Occipital neuralgia of right side M54.81 Trigger point of right shoulder region M25.511 Muscle pain, myofascial M79.18 Peripheral neuropathy G62.9 CPT Codes Nerve Block - CPT: 57288-Meihraa Occipital ([id number]) Therapeutic Injection - Ther Injection 1: 49053-Lklaesa Point Injection 1 or 2 sites ([id number])
== END 2025-07-08 10:18 | disposition home or self-care (01) ==
LOC: HO.HSM 09:57
PROVIDERS: PCP Family Medicine; Visit Provider Nurse Practitioner
DX: M54.81 Occipital neuralgia (principal); M25.511 Pain in right shoulder; M79.18 Myalgia, other site; G62.9 Polyneuropathy, unspecified
CPT/HCPCS: 20552; 64405

== ENCOUNTER → 2025-07-08 09:57 | Outpatient (BNVA) | payer OTHER, SELFPAY | PROVIDERS: PCP Family Medicine; Visit Provider Nurse Practitioner | DX: M54.81 Occipital neuralgia (principal); G62.9 Polyneuropathy, unspecified; M25.511 Pain in right shoulder; M79.18 Myalgia, other site | CPT/HCPCS: 20552; 64405; J0665 ==